=== PATIENT | male | born 1955 | race Caucasian/White ===

== ENCOUNTER 2016-11-12 10:53 | Inpatient (IN) | payer OTHER ==
[2016-11-12] VITALS (14 sets, daily range): BP systolic 108–166; BP diastolic 64–93; PULSE 74–89; RESP 16–24; TEMP 97.4–98.6; O2SAT 96–98
[~2016-11-12] VITALS: Ht 167.6 cm; Wt 71.1 kg
[~2016-11-12 10:53] MED LIST: ASPI81CH CHEW; BRIL90TA PO; CYCL1TAB29 PO; NEUR300C PO; NITR1SUB2 SL; PRAV40TA2 PO; PROT40TA PO; ROXI30TA14 PO; VENTAER INH
[2016-11-12] MEDS ORDERED: SODIUM CHLORIDE 0.9% FLUSH 5 ML FLUSH IVF PRN (11:15)
[2016-11-12] MEDS ORDERED: SODIUM CHLORID 0.9% 500 ML INJ 500 ML IV ONE (11:15)
[2016-11-12] MEDS ORDERED: NITROGLYCERIN 0.4 MG SL 25 TABS/BTL SL ONE (11:15)
[2016-11-12] MEDS: NITROGLYCERIN-DEXTROSE INJ 250 ML IV SCH ×2 (11:21→20:50)
[2016-11-12 11:23] LABS: AUTOMATED NEUTROPHIL # 5.8 TH/MM3 (1.8-7.7); BASOPHIL # 0.1 TH/MM3 (0-0.2); BASOPHIL % 0.7 % (0.0-2.0); EOSINOPHIL # 0.1 TH/MM3 (0-0.4); EOSINOPHIL % 1.1 % (0.0-4.0); HEMATOCRIT 43.4 % (39.0-51.0); HEMO FLAGS DIFF FINAL; LYMPH % 25.3 % (9.0-44.0); LYMPHOCYTE # 2.3 TH/MM3 (1.0-4.8); MEAN CELL VOLUME 83.2 FL (80.0-100.0); MEAN CORPUSCULAR HEMOGLOBIN 27.8 PG (27.0-34.0); MEAN CORPUSCULAR HGB CONC 33.4 % (32.0-36.0); MONO % 8.3 % (0.0-8.0); NEUT % 64.6 % (16.0-70.0); PLATELET COUNT 331 TH/MM3 (150-450); RED BLOOD COUNT 5.22 MIL/MM3 (4.50-5.90); RED CELL DISTRIBUTION WIDTH 15.8 % (11.6-17.2)
--- NOTE | 2016-11-12 11:24 | PD ---
HPI Chief Complaint: Chest Pain Time Seen by Provider: 10:59 Travel History International Travel<30 days: No Contact w/Intl Traveler<30days: No Traveled to known affect area: No History of Present Illness HPI Patient is a 61-year-old male who presents to emergency room with complaints of chest pain. Patient reports that 45 minutes prior to arrival to the emergency room, he began to feel pressure to his chest. Patient reports that he was on the bus when he began to have chest pain. Reports that chest pain is midsternal and nonradiating in nature, reports that chest pain feels like a crushing sensation to his chest. Patient reports that he feels diaphoretic with nausea and vomiting with symptoms. Reports that he has had chest pain in the past and has had heart attacks in the past, reports that today symptoms feel worse. Patient was given a full dose aspirin by EMS as well as 2SL nitroglycerin's, reports that the nitro did help with his symptoms but he still has chest pain. 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 Patient reports that he has had double bypass surgery in 2011, [address] Freitas Pt reports that he has 2 cardiac stents at [facility] around 8 months ago. Pt reports that he is on Brilinta Reports that he did have a stress test recently. PFSH Past Medical History Hx Anticoagulant Therapy: Yes (BRILINTA) Arthritis: Yes Autoimmune Disease: No Anxiety: Yes Heart Rhythm Problems: Yes Cancer: No Cardiac Catheterization: Yes (WITH 2 STENTS) Cardiovascular Problems: Yes High Cholesterol: Yes Congestive Heart Failure: Yes COPD: Yes Cerebrovascular Accident: No Diabetes: No Diminished Hearing: No Endocrine: No Gastrointestinal Disorders: Yes GERD: Yes Genitourinary: Yes Hiatal Hernia: Yes Heparin Induced Thrombocytopen: No Hypertension: No Immune Disorder: No Implanted Vascular Access Dvce: No Kidney Stones: Yes Reproductive: No Immunizations Current: Yes Migraines: Yes Myocardial Infarction: Yes Seizures: No Sickle Cell Disease: No Sleep Apnea: Yes Ulcer: No Past Surgical History Abdominal Surgery: No Cardiac Surgery: Yes ( double cabg 2012 for stents) Coronary Artery Bypass Graft: Yes (X 2) Ear Surgery: No Endocrine Surgery: No Eye Surgery: No Genitourinary Surgery: No Gynecologic Surgery: No Neurologic Surgery: No Oral Surgery: No Thoracic Surgery: Yes (HX of CABG x 2) Other Surgery: Yes Family History Family Myocardial Infarction: Yes Social History Alcohol Use: No (PT DENIES) Tobacco Use: Yes (11/12 PPD) Substance Use: Yes (MARIJUANA, OPIATES ) Allergies-Medications (Allergen,Severity, Reaction): Coded Allergies: Penicillin (Verified Allergy, Unknown, Hives, 11/12/16) Reported Meds & Prescriptions Reported Meds & Active Scripts Active Flexeril (Cyclobenzaprine HCl) 10 Mg Tab 10 Mg PO TID PRN 10 Days Ventolin Hfa 18 GM Inh (Albuterol Sulfate) 90 Mcg/Act Aer 2 Puff INH Q4-6H PRN Neurontin (Gabapentin) 300 Mg Cap 900 Mg PO TID Brilinta (Ticagrelor) 90 Mg Tab 90 Mg PO BID Pravastatin 40 Mg Tab 40 Mg PO DAILY Nitroglycerin SL (Nitroglycerin) 0.3 Mg Subl 0.3 Mg SL DIRECTED PRN ONE TABLET UNDER THE TONGUE NEEDED FOR CHEST PAIN, MAY REPEAT EVERY FIVE MINUTES FOR A TOTAL OF 3 DOSES OR CALL 911 IF NO RELIEF. Protonix (Pantoprazole Sodium) 40 Mg Tab 40 Mg PO DAILY Reported Aspirin 81 Mg Chew 81 Mg CHEW DAILY Roxicodone (Oxycodone HCl) 30 Mg Tab 30 Mg PO TID Review of Systems General / Constitutional: No: Fever Eyes: No: Visual changes HENT: No: Headaches Cardiovascular: Positive: Chest Pain or Discomfort, Palpitations, Diaphoresis Respiratory: Positive: Shortness of Breath Gastrointestinal: Positive: Nausea, Vomiting, No: Diarrhea, Abdominal Pain Genitourinary: No: Dysuria Musculoskeletal: No: Pain Skin: No Rash Neurologic: No: Weakness Psychiatric: No: Depression Endocrine: No: Polydipsia Hematologic/Lymphatic: No: Easy Bruising Physical Exam Narrative GENERAL: pt in mild distress SKIN: Warm and dry. HEAD: Atraumatic. Normocephalic. EYES: Pupils equal and round. No scleral icterus. No injection or drainage. ENT: No nasal bleeding or discharge. Mucous membranes pink and moist. NECK: Trachea midline. No JVD. CARDIOVASCULAR: Regular rate and rhythm. No murmur appreciated. RESPIRATORY: No accessory muscle use. Clear to auscultation. Breath sounds equal bilaterally. GASTROINTESTINAL: Abdomen soft, non-tender, nondistended. Hepatic and splenic margins not palpable. MUSCULOSKELETAL: No obvious deformities. No clubbing. No cyanosis. No edema. NEUROLOGICAL: Awake and alert. No obvious cranial nerve deficits. Motor grossly within normal limits. Normal speech. PSYCHIATRIC: Appropriate mood and affect; insight and judgment normal. Data Data Last Documented VS Vital Signs Date Time Temp Pulse Resp B/P Pulse Ox O2 Delivery O2 Flow Rate FiO2 11/12/16 12:39 85 18 166/91 97 Room Air 11/12/16 10:56 98.1 Orders Electrocardiogram (11/12/16 11:03) B-Type Natriuretic Peptide (11/12/16 11:03) Ckmb (Isoenzyme) Profile (11/12/16 11:03) Complete Blood Count With Diff (11/12/16 11:03) Comprehensive Metabolic Panel (11/12/16 11:03) Prothrombin Time / Inr (Pt) (11/12/16 11:03) Act Partial Throm Time (Ptt) (11/12/16 11:03) Troponin I (11/12/16 11:03) Chest, Single Ap (11/12/16 11:03) Ecg Monitoring (11/12/16 11:03) Iv Access Insert/Monitor (11/12/16 11:03) Oximetry (11/12/16 11:03) Oxygen Administration (11/12/16 11:03) Sodium Chloride 0.9% Flush (Ns Flush) (11/12/16 11:15) Nitroglycerin Sl (Nitrostat Sl) (11/12/16 11:15) Sodium Chlorid 0.9% 500 Ml Inj (Ns 500 M (11/12/16 11:15) Nitroglycerin-Dextrose Inj (Nitroglyceri (11/12/16 11:15) Drug Screen, Random Urine (11/12/16 11:11) Electrocardiogram (11/12/16 ) CKMB (11/12/16 11:00) CKMB% (11/12/16 11:00) Morphine Inj (Morphine Inj) (11/12/16 12:15) Heparin Infusion PONCE.Q1H (11/12/16 12:11) Heparin-D5w Inj (Heparin-D5w Inj) (11/12/16 12:15) Electrocardiogram (11/12/16 11:33) Admit Order (Ed Use Only) (11/12/16 12:50) Labs Laboratory Tests Test 11/12/16 11/12/16 11:00 12:17 White Blood Count 9.0 TH/MM3 Red Blood Count 5.22 MIL/MM3 Hemoglobin 14.5 GM/DL Hematocrit 43.4 % Mean Corpuscular Volume 83.2 FL Mean Corpuscular Hemoglobin 27.8 PG Mean Corpuscular Hemoglobin 33.4 % Concent Red Cell Distribution Width 15.8 % Platelet Count 331 TH/MM3 Mean Platelet Volume 8.8 FL Neutrophils (%) (Auto) 64.6 % Lymphocytes (%) (Auto) 25.3 % Monocytes (%) (Auto) 8.3 % Eosinophils (%) (Auto) 1.1 % Basophils (%) (Auto) 0.7 % Neutrophils # (Auto) 5.8 TH/MM3 Lymphocytes # (Auto) 2.3 TH/MM3 Monocytes # (Auto) 0.7 TH/MM3 Eosinophils # (Auto) 0.1 TH/MM3 Basophils # (Auto) 0.1 TH/MM3 CBC Comment DIFF FINAL Differential Comment Prothrombin Time 11.0 SEC Prothromb Time International 1.0 RATIO Ratio Activated Partial 32.5 SEC Thromboplast Time Sodium Level 139 MEQ/L Potassium Level 4.0 MEQ/L Chloride Level 104 MEQ/L Carbon Dioxide Level 23.3 MEQ/L Anion Gap 12 MEQ/L Blood Urea Nitrogen 13 MG/DL Creatinine 1.33 MG/DL Estimat Glomerular Filtration 55 ML/MIN Rate Random Glucose 122 MG/DL Calcium Level 9.6 MG/DL Total Bilirubin 0.7 MG/DL Aspartate Amino Transf 28 U/L (AST/SGOT) Alanine Aminotransferase 22 U/L (ALT/SGPT) Alkaline Phosphatase 68 U/L Total Creatine Kinase 286 U/L Creatine Kinase MB 2.2 NG/ML Troponin I 0.03 NG/ML B-Type Natriuretic Peptide 24 PG/ML Total Protein 8.3 GM/DL Albumin 4.5 GM/DL Urine Opiates Screen NEG Urine Barbiturates Screen NEG Urine Amphetamines Screen NEG Urine Benzodiazepines Screen NEG Urine Cocaine Screen NEG Urine Cannabinoids Screen POS MDM Medical Decision Making Medical Screen Exam Complete: Yes Emergency Medical Condition: Yes Interpretation(s) ekg at 1056: Normal sinus rhythm at 84 bpm, QT/QTC 365/107, pt with diffuse st seg depression, 0.5mm st elevation aVR ekg at 11:: nsr [id number]: st seg depression lateral leads, improved from initial ekg Vital Signs Date Time Temp Pulse Resp B/P Pulse Ox O2 Delivery O2 Flow Rate FiO2 11/12/16 10:56 98.1 89 18 141/93 96 Differential Diagnosis acs, electrolyte abnormalities, arrhythmia, muscle strain, pneumothorax, aortic dissection Narrative Course Patient is a 61-year-old male who presents to emergency room with complaints of chest pain. Patient reports that 45 minutes prior to arrival to the emergency room, he began to feel pressure to his chest. Patient reports that he was on the bus when he began to have chest pain. Reports that chest pain is midsternal and nonradiating in nature, reports that chest pain feels like a crushing sensation to his chest. Patient reports that he feels diaphoretic with nausea and vomiting with symptoms. Reports that he has had chest pain in the past and has had heart attacks in the past, reports that today symptoms feel worse. Patient was given a full dose aspirin by EMS as well as 2SL nitroglycerin's, reports that the nitro did help with his symptoms but he still has chest pain. 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 Patient reports that he has had double bypass surgery in 2011, [address] Freitas Pt reports that he has 2 cardiac stents at [facility] around 8 months ago. Pt reports that he is on Brilinta Patient with ischemic changes on his EKG, will start patient on nitro drip, will repeat EKG in 15 minutes Patient's treadmill test was reviewed, patient had a stress test on 09/18/[address] Perez, there were no electrocardiographic abnormalities seen to suggest ischemia Reports that he did have a stress test recently. Please note that Patient had cardiac catheter on 10/30/[address] Iza Perez which showed severe disease of the ostial LAD and mid RCA, it does not appear that any intervention was performed at that time, surgery was conflict for coronary artery bypass graft given large calcium burden at the ostial LAD positio Patient placed on nitro drip - reports minimal relief of symptoms with this, we' ll give a dose of morphine Patient will be admitted to the CICU for unstable angina Critical Care Narrative Aggregate critical care time was 30 minutes. Time to perform other separately billable procedures was not included in the critical care time. My time did not include minutes spent treating any other patients simultaneously or on activities that did not directly contribute to the patient's treatment. The services I provided to this patient were to treat and/or prevent clinically significant deterioration that could result in: , decompensation, deterioration I provided critical care services requiring my management, as noted below: Chart data review, documentation time, medication orders and management, vital sign assessments/reviewing monitor data, ordering and reviewing lab tests, ordering and interpreting/reviewing x-rays and diagnostic studies, care of the patient and discussion of the patient with the admitting physicians. Physician Communication Physician Communication case reviewed with fp residents, accepts pt to service Diagnosis Primary Impression: Unstable angina Admitting Information Admitting Physician Requests: Admit Naida Pritchett DO Nov 12, 2016 11:24
[2016-11-12 11:34] LABS: APTT (PATIENT) 32.5 SEC (24.3-30.1)
[2016-11-12 11:40] LABS: ALT (GPT) 22 U/L (12-78); ANION GAP 12 MEQ/L (5-15); AST (GOT) 28 U/L (15-37); BICARBONATE 23.3 MEQ/L (21.0-32.0); BLOOD UREA NITROGEN 13 MG/DL (7-18); CHLORIDE 104 MEQ/L (98-107); GLOMERULAR FILTRATION RATE 55 ML/MIN (>89); SODIUM (NA) 139 MEQ/L (136-145)
--- NOTE | 2016-11-12 11:41 | RADRPT ---
EXAM DATE/TIME: 11/12/2016 11:20 [facility] COMPARISON: CHEST SINGLE AP, November 04, 2016, 11:15. INDICATIONS : Chest pain. MEDICAL HISTORY : Congestive heart failure. SURGICAL HISTORY : CABG. ENCOUNTER: Initial ACUITY: 1 day PAIN SCORE: 10/10 LOCATION: chest midline. FINDINGS: A single view of the chest demonstrates the lungs to be symmetrically aerated without evidence of mas s, infiltrate or effusion. The cardiomediastinal contours are unremarkable. Osseous structures are intact. Median sternotomy wires are present. CONCLUSION: No acute disease. Hari Pak MD on November 12, 2016 at 11:40 Board Certified Radiologist. This report was verified electronically.
[2016-11-12 11:49] LABS: ALKALINE PHOSPHATASE 68 U/L (45-117); CREATINE KINASE 286 U/L (39-308); TOTAL BILIRUBIN ADULT 0.7 MG/DL (0.2-1.0)
[2016-11-12 12:01] LABS: CKMB 2.2 NG/ML (0.5-3.6)
[2016-11-12] MEDS ORDERED: HEPARIN-D5W INJ 250 ML IV SCH (12:15)
[2016-11-12] MEDS ORDERED: MORPHINE SULFATE 4 MG/ML INJ IV PUSH ONE (12:15)
[2016-11-12 12:33] LABS: AMPHETAMINE, URINE NEG (NEG); BARBITURATES, URINE NEG (NEG); COCAINE, URINE NEG (NEG)
--- NOTE | 2016-11-12 14:58 | HHI.HP ---
HPI Service Family Medicine Primary Care Physician Non-Staff Admission Diagnosis Unstable angina Diagnoses: International Travel<30 Days: No Contact w/Intl Traveler<30days: No Known Affected Area: No History of Present Illness This is a 61 year old male with a past history of CAD requiring double bypass surgery and 2 stents placed this year who follows with Dr. Alejandro. He reports that while sitting at the bus stop today, 45 minutes prior to ED arrival , he experienced 10/10 crushing, tightening, chest pain. The pain is in the middle of his chest. No radiation. He was given 325 mg aspirin by the EMS, and was placed on a nitro drip in the ER. His pain improved a little with the nitro , but upon our evaluation, he still complains of 10/10 pain. He's having SOB, diaphoresis, and feels like "its the big one." He recently had a stress test on 09/18/[address] De Leon, and there was no abnormalities at that time. He has been to [place] on 10/31, 11/04, and now today, for chest pain. (Richmond Whalen MD R2) Review of Systems Constitutional: COMPLAINS OF: Fever, DENIES: Chills Eyes: DENIES: Blurred vision, Diplopia Respiratory: COMPLAINS OF: Shortness of breath, DENIES: Cough Cardiovascular: COMPLAINS OF: Chest pain, DENIES: Palpitations Gastrointestinal: COMPLAINS OF: Nausea, Vomiting, DENIES: Diarrhea Neurologic: DENIES: Abnormal gait, Headache Psychiatric: COMPLAINS OF: Anxiety, DENIES: Confusion (Richmond Whalen MD R2) Past Family Social History Past Medical History Chronic pain from multiple disc injuries in his neck and back Hyperlipidemia COPD CHF Neuropathy CAD Past Surgical History CABG 2 in 2011 Stent placement 2 - 6 months ago Reported Medications Reported Meds & Active Scripts Active Flexeril (Cyclobenzaprine HCl) 10 Mg Tab 10 Mg PO TID PRN 10 Days Ventolin Hfa 18 GM Inh (Albuterol Sulfate) 90 Mcg/Act Aer 2 Puff INH Q4-6H PRN Neurontin (Gabapentin) 300 Mg Cap 900 Mg PO TID Brilinta (Ticagrelor) 90 Mg Tab 90 Mg PO BID Pravastatin 40 Mg Tab 40 Mg PO DAILY Nitroglycerin SL (Nitroglycerin) 0.3 Mg Subl 0.3 Mg SL DIRECTED PRN ONE TABLET UNDER THE TONGUE NEEDED FOR CHEST PAIN, MAY REPEAT EVERY FIVE MINUTES FOR A TOTAL OF 3 DOSES OR CALL 911 IF NO RELIEF. Protonix (Pantoprazole Sodium) 40 Mg Tab 40 Mg PO DAILY Reported Aspirin 81 Mg Chew 81 Mg CHEW DAILY Roxicodone (Oxycodone HCl) 30 Mg Tab 30 Mg PO TID (Richmond Whalen MD R2) Allergies: Coded Allergies: Penicillin (Verified Allergy, Unknown, Hives, 11/12/16) Active Ordered Medications Active Medications Heparin Sodium/ Dextrose (Heparin-D5W Inj) 250 ml @ 0 mls/hr TITRATE IV Last administered on 11/12/16 12:33; Admin Dose 0 MLS/HR; Start 11/12/16 at 12:15 IV Flush (NS Flush) 2 ml UNSCH PRN IVF; Start 11/12/16 at 11:15 Morphine Sulfate 2 mg 2 mg ONCE ONCE IV PUSH Last administered on 11/12/16 12: 31; Admin Dose 2 MG; Start 11/12/16 at 12:15; Stop 11/12/16 at 12:16; Status DC Nitroglycerin 0.4 mg 0.4 mg ONCE ONCE SL Last administered on 11/12/16 11:21; Admin Dose 0.4 MG; Start 11/12/16 at 11:15; Stop 11/12/16 at 11:16; Status DC Nitroglycerin/ Dextrose (Nitroglycerin-Dextrose Inj) 250 ml @ 0 mls/hr TITRATE IV Last administered on 11/12/16 11:21; Admin Dose 0 MLS/HR; Start 11/12/16 at 11 :15 Sodium Chloride 500 ml @ 500 mls/hr ONCE ONCE IV Last administered on 11:21; Admin Dose 500 MLS/HR; Start 11/12/16 at 11:15; Stop 11/12/16 at 12:14 ; Status DC Family History Father of an CT at age 42, mother of an CT at age 92. 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 Currently smokes 5 cigarettes a day however has been smoking since the age of 13. Denies alcohol. He endorses marijuana. Denies all other illicit drugs. (Richmond Whalen MD R2) Physical Exam Vital Signs Vital Signs Date Time Temp Pulse Resp B/P Pulse Ox O2 Delivery O2 Flow Rate FiO2 11/12/16 14:36 87 18 132/67 97 Nasal Cannula 2 11/12/16 12:39 85 18 166/91 97 Room Air 11/12/16 11:50 87 24 123/87 98 Room Air 11/12/16 11:15 18 98 Room Air 11/12/16 10:56 98.1 89 18 141/93 96 Physical Exam GENERAL: This is a well-nourished, well-developed patient, who appears to have chest pain SKIN: No rashes, ecchymoses or lesions. Cool and dry. HEAD: Atraumatic. Normocephalic. No temporal or scalp tenderness. EYES: Pupils equal round and reactive. Extraocular motions intact. No scleral icterus. No injection or drainage. ENT: Nose without bleeding, purulent drainage or septal hematoma. Throat without erythema, tonsillar hypertrophy or exudate. Uvula midline. Airway patent. NECK: Trachea midline. No JVD or lymphadenopathy. Supple, nontender, no meningeal signs. CARDIOVASCULAR: Regular rate and rhythm without murmurs, gallops, or rubs. RESPIRATORY: Clear to auscultation. Breath sounds equal bilaterally. No wheezes , rales, or rhonchi. GASTROINTESTINAL: Abdomen soft, non-tender, nondistended. No hepato-splenomegaly , or palpable masses. No guarding. MUSCULOSKELETAL: Extremities without clubbing, cyanosis, or edema. No joint tenderness, effusion, or edema noted. No calf tenderness. Negative Homans sign bilaterally. NEUROLOGICAL: Awake and alert. Cranial nerves II through XII intact. Motor and sensory grossly within normal limits. Five out of 5 muscle strength in all muscle groups. Normal speech. Laboratory Laboratory Tests Test 11/12/16 11/12/16 11:00 12:17 White Blood Count 9.0 Red Blood Count 5.22 Hemoglobin 14.5 Hematocrit 43.4 Mean Corpuscular Volume 83.2 Mean Corpuscular Hemoglobin 27.8 Mean Corpuscular Hemoglobin 33.4 Concent Red Cell Distribution Width 15.8 Platelet Count 331 Mean Platelet Volume 8.8 Neutrophils (%) (Auto) 64.6 Lymphocytes (%) (Auto) 25.3 Monocytes (%) (Auto) 8.3 Eosinophils (%) (Auto) 1.1 Basophils (%) (Auto) 0.7 Neutrophils # (Auto) 5.8 Lymphocytes # (Auto) 2.3 Monocytes # (Auto) 0.7 Eosinophils # (Auto) 0.1 Basophils # (Auto) 0.1 CBC Comment DIFF FINAL Differential Comment Prothrombin Time 11.0 Prothromb Time International 1.0 Ratio Activated Partial 32.5 Thromboplast Time Sodium Level 139 Potassium Level 4.0 Chloride Level 104 Carbon Dioxide Level 23.3 Anion Gap 12 Blood Urea Nitrogen 13 Creatinine 1.33 Estimat Glomerular Filtration 55 Rate Random Glucose 122 Calcium Level 9.6 Total Bilirubin 0.7 Aspartate Amino Transf 28 (AST/SGOT) Alanine Aminotransferase 22 (ALT/SGPT) Alkaline Phosphatase 68 Total Creatine Kinase 286 Creatine Kinase MB 2.2 Troponin I 0.03 B-Type Natriuretic Peptide 24 Total Protein 8.3 Albumin 4.5 Urine Opiates Screen NEG Urine Barbiturates Screen NEG Urine Amphetamines Screen NEG Urine Benzodiazepines Screen NEG Urine Cocaine Screen NEG Urine Cannabinoids Screen POS (Richmond Whalen MD R2) Result Diagram: 11/12/16 1100 11/12/16 1100 Imaging chest xray- no acute disease (Richmond Whalen MD R2) Assessment and Plan Assessment and Plan 61-year-old male with previous cardiac history including CABG and stents who follows with Dr. Perez presents with chest pain. EKG shows moderate ST depressions. Initial troponin 0.03 Patient will be admitted for ACS rule out, cardiology consultation Code Status Full Discussed Condition With Dr. Koby Allen (Richmond Whalen MD R2) Attending Attestation Patient seen and examined. Case reviewed and discussed with the resident team. Agree with plan of care as discussed with me and documented in the resident note. (Shikha Whalen MD) Problem List: (1) Unstable angina Status: Acute Plan: Patient has a significant cardiac history. However, he has had a normal stress test as recently as 09/2016; he follows with Dr. Perez. EKG shows ST depressions. -ACS rule out with serial troponins and EKGs -Consult cardiology (Dr. Perez) -Continue heparin drip as started in the emergency room. -Morphine 2 mg when necessary chest pain -Aspirin 325 mg by mouth daily -Nitroglycerin when necessary chest pain (2) VESNA (acute kidney injury) Status: Acute Plan: Patient has mild renal injury with a creatinine of 1.33 His baseline is less than 1 We'll provide fluids as below. (3) FEN/PPX Status: Acute Plan: Fluids: Normal saline at 110 ml/hr Electrolytes: Monitor and replace when necessary Nutrition: Heart healthy diet Prophylaxis: Continue heparin drip started in the emergency room. Chronic medical problems: Hyperlipidemia- continue current statin Neuropathy-continue gabapentin Chronic back pain-continue home oxycodone Tobacco abuse-counseled cessation (Richmond Whalen MD R2) Richmond Whalen MD R2 Nov 12, 2016 14:58 Shikha Whalen MD Nov 13, 2016 10:13
--- NOTE | 2016-11-12 15:26 | HHI.FPPN ---
Subjective Remarks Pt. seen and examined and discussed with Drs. Allen and Koby. This is a 61 yo male with hx of CABG and stents on Brilinta who was waiting for the bus today and had sudden onset of chest pain that "knocked the breath out of him". It was centrally located, substernal, with radiation to the back, associated with nausea and sweats. 10:10. Hx ofmultiple previous ED visits, admissions to chest pain center (most recently 10-31-16 and 11-04-16). 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 See H&P from this admission for additional past, family and social history. Complete review of systems was only positive for the 10:10 chest pain radiating to the back, nausea, sweats; all other systems reviewed and were negative. Objective Vitals Vital Signs Date Time Temp Pulse Resp B/P Pulse Ox O2 Delivery O2 Flow Rate FiO2 11/12/16 14:36 87 18 132/67 97 Nasal Cannula 2 11/12/16 12:39 85 18 166/91 97 Room Air 11/12/16 11:50 87 24 123/87 98 Room Air 11/12/16 11:15 18 98 Room Air 11/12/16 10:56 98.1 89 18 141/93 96 Result Diagram: 11/12/16 1100 11/12/16 [address] depression in three serial EKGs Imaging CXR negative A/P Assessment and Plan Unstable angina History of CAD HLD Neuropathy COPD Chronic Back pain Tobacco abuse Attending Attestation Patient seen and examined. Case reviewed and discussed with the resident team. Agree with plan of care as discussed with me and documented in the resident note. Shikha Whalen MD Nov 12, 2016 15:26
[2016-11-12] MEDS ORDERED: hydrALAZINE HCL 10 MG TAB PO PRN (15:30)
[2016-11-12] MEDS ORDERED: DOCUSATE SODIUM 50 MG/SENNA 8.6 MG TAB PO PRN (15:30)
[2016-11-12] MEDS ORDERED: CYCLOBENZAPRINE HCL 10 MG TAB PO PRN (15:45)
[2016-11-12] MEDS: MORPHINE SULFATE 4 MG/ML INJ IV PUSH PRN ×3 (15:51→22:06)
[2016-11-12] MEDS: SODIUM CHLOR 0.9% 1000 ML INJ 1,000 ML IV SCH (15:51)
[2016-11-12] MEDS: ONDANSETRON HCL 4 MG/2 ML VIAL IV PRN (15:51)
--- NOTE | 2016-11-12 17:58 | EKG ---
Date Performed: 11/12/2016 Time Performed: 10:56:56 PTAGE: 61 years EKG: Sinus rhythm MODERATE ST DEPRESSION Since previous tracing, no significant change noted ABNORMAL ECG PREVIOUS TRACING : 11/04/2016 17.41 DOCTOR: Iza Perez Interpretating Date/Time 11/12/2016 17:56:32
--- NOTE | 2016-11-12 17:58 | EKG ---
Date Performed: 11/12/2016 Time Performed: 11:07:05 PTAGE: 61 years EKG: Sinus rhythm POSSIBLE LEFT ATRIAL ENLARGEMENT MODERATE ST DEPRESSION Since previous tracing, no significant arnold e noted ABNORMAL ECG NO PREVIOUS TRACING DOCTOR: Iza Perez Interpretating Date/Time 11/12/2016 17:56:46
--- NOTE | 2016-11-12 17:58 | EKG ---
Date Performed: 11/12/2016 Time Performed: 11:33:37 PTAGE: 61 years EKG: Sinus rhythm MODERATE ST DEPRESSION Since PREVIOUS TRACING , no significant change noted ABNORMAL ECG INTERPRETATION BASED ON A DEF DAMARIS AGE OF 40 YEARS PREVIOUS TRACIN11/12/2016 10.56 DOCTOR: Iza Perez Interpretating Date/Time 11/12/2016 17:57:01
[2016-11-12 19:22] LABS: APTT (PATIENT) 31.7 SEC (24.3-30.1)
[2016-11-12] MEDS ORDERED: NITROGLYCERIN-DEXTROSE INJ 250 ML IV SCH (20:30)
[2016-11-12] MEDS: GABAPENTIN 300 MG CAP PO SCH (20:36)
[2016-11-12] MEDS ORDERED: TICAGRELOR 90 MG TAB PO SCH (21:00)
--- NOTE | 2016-11-12 21:03 | HHI.PR ---
Addendum to Inpatient Note Addendum Reason: Additional Documentation Additional Information Patient's troponin increased from 0.03 to >40 at 1840 Patient was evaluated at the bedside. He reports continued chest pain. 8 out of 10 in severity in the middle of his chest nonradiating. He is reluctant to accept the nitro drip because it causes him to have headaches. However after further discussion, he agrees to have the nitro drip. He states the morphine is not helping his chest pain. He is not asking for morphine for his 8 out of 10 chest pain. No nausea, vomiting, diarrhea. Objective: Vitals 98.0, heart rate 86, respirations 16, 137/93, 97% on room air. Gen.: Appears uncomfortable secondary to chest pain. Cardiac: Regular rate and rhythm Lungs: Clear to auscultation bilaterally Assessment/plan: 61-year-old male with past history of coronary artery disease with stents and CABG with NSTEMI. Troponins increased from 0.03 to > 40.0; repeat EKG shows normal sinus rhythm without depressions or elevations. Case discussed with Dr. Ivey of cardiology who recommends nitro drip and making the patient nothing by mouth for catheterization procedure tomorrow morning. Richmond Whalen MD R2 Nov 12, 2016 21:03
[2016-11-12] MEDS ORDERED: ACETAMINOPHEN 500 MG CPLT PO PRN (21:15)
[2016-11-12] MEDS: TEMAZEPAM 15 MG CAP PO PRN (23:33)
[2016-11-13] VITALS (25 sets, daily range): BP systolic 92–126; BP diastolic 53–77; PULSE 70–91; RESP 16–20; TEMP 97.2–98.4; O2SAT 93–100
[2016-11-13 00:55] LABS: APTT (PATIENT) 35.5 SEC (24.3-30.1)
[2016-11-13] MEDS ORDERED: diphenhydrAMINE HCL 50 MG/ML VIAL IV PUSH ONE (01:15)
[2016-11-13 01:25] LABS: ANION GAP 9 MEQ/L (5-15); BICARBONATE 21.3 MEQ/L (21.0-32.0); BLOOD UREA NITROGEN 14 MG/DL (7-18); CHLORIDE 108 MEQ/L (98-107); GLOMERULAR FILTRATION RATE 73 ML/MIN (>89); SODIUM (NA) 138 MEQ/L (136-145)
[2016-11-13] MEDS ORDERED: diphenhydrAMINE HCL 25 MG CAP PO PRN (01:30)
[2016-11-13] MEDS: SODIUM CHLOR 0.9% 1000 ML INJ 1,000 ML IV SCH ×3 (01:32→21:11)
[2016-11-13] MEDS: MORPHINE SULFATE 4 MG/ML INJ IV PUSH PRN (03:20)
[2016-11-13 06:56] LABS: AUTOMATED NEUTROPHIL # 5.8 TH/MM3 (1.8-7.7); BASOPHIL % 0.5 % (0.0-2.0); EOSINOPHIL # 0.2 TH/MM3 (0-0.4); EOSINOPHIL % 2.3 % (0.0-4.0); HEMATOCRIT 36.4 % (39.0-51.0); HEMO FLAGS DIFF FINAL; LYMPH % 25.6 % (9.0-44.0); LYMPHOCYTE # 2.3 TH/MM3 (1.0-4.8); MEAN CELL VOLUME 83.9 FL (80.0-100.0); MEAN CORPUSCULAR HEMOGLOBIN 28.1 PG (27.0-34.0); MEAN CORPUSCULAR HGB CONC 33.5 % (32.0-36.0); MONO % 8.3 % (0.0-8.0); NEUT % 63.3 % (16.0-70.0); PLATELET COUNT 213 TH/MM3 (150-450); RED BLOOD COUNT 4.34 MIL/MM3 (4.50-5.90); RED CELL DISTRIBUTION WIDTH 15.4 % (11.6-17.2); WHITE BLOOD COUNT 9.1 TH/MM3 (4.0-11.0)
[2016-11-13] MEDS ORDERED: PILL SPLITTER OTHER PRN (08:15)
[2016-11-13] MEDS ORDERED: HEPARIN-NS/PF INJ 500 ML ONE ×2 (08:21→08:44)
[2016-11-13] MEDS ORDERED: MIDAZOLAM HCL 2 MG/2 ML VIAL ONE ×5 (08:22→10:58)
[2016-11-13] MEDS ORDERED: ASPIRIN 325 MG TAB PO SCH (09:00)
[2016-11-13] MEDS ORDERED: ASPIRIN 81 MG CHEW TAB PO SCH (09:00)
[2016-11-13] MEDS ORDERED: HEPARIN SODIUM - IV 10,000 UNITS/10 ML VIAL ONE (09:10)
[2016-11-13] MEDS ORDERED: CANGRELOR TETRASODIUM 50,000 MCG VIAL IV ONE (09:10)
[2016-11-13] MEDS ORDERED: STERILE WATER FOR INJECTION 10 ML VIAL ONE (09:11)
[2016-11-13] MEDS ORDERED: ATROPINE SULFATE 1 MG/10 ML SYRINGE ONE (09:29)
--- NOTE | 2016-11-13 09:54 | MB ---
cc: LEONID LUNA DATE OF CONSULTATION 11/13/2016 REASON FOR CONSULTATION Non-ST elevation myocardial infarction. HISTORY OF PRESENT ILLNESS This is a 61 year-old gentleman who has a history of known coronary disease who had bypass surgery times two back in 2011. He has [facility], but does not follow on an outpatient basis as he has Medicaid. Back in his heart catheterization in 2010, he had an LAD and RCA disease. He presents to the emergency department now with recurrent substernal chest pain, tightening, radiating towards the jaw. He has multiple frequent hospitalizations both on September 18 in which he had a normal stress test, followed by October 31 and November 04. He has been seen by psychiatry I think for these types of symptoms. His initial troponin was negative. He was admitted to the floor, but his second troponin rolled in at greater than 40 and we were consulted for further recommendations. His EKG does show some [address] depression inferiorly which has normalized. He is now symptom free from a chest-pain standpoint still describing back pain. PAST MEDICAL HISTORY 1. Chronic back pain 2. Hyperlipidemia 3. COPD 4. CHF 5. Neuropathy 6. Coronary disease 7. Bypass 8. PCI times two about six months ago REPORTED medications 1. Aspirin 2. Oxycodone ALLERGIES PENICILLIN REVIEW OF SYSTEMS A 12-point review of systems was performed, negative unless otherwise as noted in the history of present illness. FAMILY HISTORY His father does have a history of early coronary disease at age 42 with a myocardial infarction. 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 Denies any alcohol. Does report occasional marijuana use. PHYSICAL EXAM VITAL SIGNS: Temperature 97, pulse 79, blood pressure 104/62 mmHg. GENERAL: Alert and oriented times three is no acute distress. HEAD, EYES, EARS, NOSE, AND THROAT: Exam shows pupil are reactive to light and accommodation. Extraocular movements are intact. NECK: No jugular venous distention. LUNGS: Clear to auscultation bilaterally. CARDIOVASCULAR: Regular rate and rhythm with distant heart sounds. No murmurs, rubs, or gallops. ABDOMEN: Nontender, nondistended. Good bowel sounds. No hepatosplenomegaly. EXTREMITIES: No clubbing, cyanosis, or edema. Good peripheral pulses. NEUROLOGIC: Cranial nerves intact. Motor strength appears grossly intact. LABS WBC 9.1, hemoglobin 12.2, platelet count 213, INR is 1. Sodium 138, potassium 4.0, BUN 14, creatinine 1.04. Troponin is greater than 40. BNP is 24. Electrocardiogram is sinus rhythm, ST depression 1 mm inferiorly. Some nonspecific anterior precordial lead changes with poor R-wave progression. ASSESSMENT 1. Non-ST elevation myocardial infarction 2. History of coronary disease, prior bypass surgery and percutaneous intervention. 3. Hypertension PLAN The patient had somewhat suggestive symptoms, but multiple recent hospitalizations, negative stress test back in September. Despite all this, he has had a significant elevation in troponin with some subtle inferior ST segment deviation suspicious for right coronary distribution ischemic/infarct pattern. The risks, benefits and alternatives were discussed with the patient who is agreeable to cardiac catheterization. Currently on heparin and nitroglycerin which will stop now in anticipation of going to the cardiac catheterization lab. We will get a 2-D echocardiogram to look for any regional wall motion abnormalities and ejection fraction. He is already on aspirin, statin, beta misty and will likely resume Brilinta after the procedure. MD EUGENE Umana/ISMA /8:14 AM /9:51 AM
[2016-11-13] MEDS ORDERED: IOHEXOL 350 MG/ML 100 ML BTL (for Cath Lab) OTHER ONE (11:00)
[2016-11-13] MEDS ORDERED: PRASUGREL 10 MG TAB ONE (11:05)
[2016-11-13] MEDS ORDERED: ATROPINE SULFATE 1 MG/ML VIAL IV PRN (11:15)
[2016-11-13] MEDS ORDERED: BACITRACIN OINT 0.9 GM PKT TOP ONE (11:15)
[2016-11-13] MEDS ORDERED: SODIUM CHLOR 0.9% 250 ML INJ 250 ML IV PRN (11:15)
[2016-11-13] MEDS ORDERED: LIDOCAINE HCL 1% 50 ML VIAL INFIL PRN (11:15)
[2016-11-13] MEDS ORDERED: CANGRELOR INJ 50,000 MCG in SODIUM CHLOR 0.9% 250 ML INJ 250 ML IV ONE (11:15)
[2016-11-13] MEDS ORDERED: LIDOCAINE 2% JELLY 30 ML TUBE TOP PRN (11:15)
[2016-11-13] MEDS ORDERED: PRASUGREL 10 MG TAB PO ONE (11:15)
--- NOTE | 2016-11-13 11:54 | MA ---
cc: CALVIN LUNA DATE 11/13/2016 INDICATION [id number] myocardial infarction PRIMARY CARE PHYSICIAN Calvin Luna MD/[facility] PROCEDURE PERFORMED 1. Fluoroscopy interpretation 2. Coronary angiography 3. Coronary bypass graft angiography 4. Percutaneous intervention with bare metal stent to the ramus intermedius branch. 5. Percutaneous coronary intervention with bare metal stent to the distal left main coronary artery. 6. Percutaneous transluminal angioplasty of a thrombosed proximal left anterior descending coronary stent. 7. Related thrombectomy of the left main coronary artery 8. Intravascular ultrasound of the left main and left anterior descending coronary arteries. METHOD The risks, benefits and alternatives discussed with the patient. The patient understood and consented to the procedure. The patient brought into the catheterization lab, placed on the catheterization table. The right groin was prepped and draped in the usual sterile fashion. The right groin was anesthetized with 2% lidocaine. The right common femoral was cannulated. A 5-Azerbaijani 11 center sheath was placed without difficulty. CORONARY ANGIOGRAPHY 1. Left main coronary has a severe 75% distal stenosis. There is a stent that is under-deployed extending from the left anterior descending into the left main coronary covering the origin of the circumflex and ramus intermedius branches. There is heavy thrombotic burden extending into the branch of the circumflex and left anterior descending coronary artery. 2. Left anterior descending coronary has a thrombosed stent proximally which leads to a diagonal branch, moderate to proximal disease. 3. The mid left anterior descending coronary is occluded. 4. Right coronary artery. The right coronary artery is diffusely diseased with 80% stenosis in the distal segment. The acute marginal branch is patent. 5. Left circumflex proper is a smaller caliber size, has a 70% ostial stenosis. Obtuse marginal branch smaller caliber size. The ramus intermedius branch is moderate caliber size and also has moderate diffuse disease 75% proximally. PERCUTANEOUS INTERVENTION Heparin and Cangrelor were initiated. A 5-Azerbaijani sheath was upsized to a 6-Azerbaijani sheath in the right common femoral artery. A 6-Azerbaijani XB LAD 3.5 guide catheter was advanced into the left main. A 0.014 inch 180 cm CompufirstumCumuLogic run-through wire was navigated down into the ramus intermedius branch. It was difficult to pass through the distal left main since the stent was covering the origin of the ramus I suspect through a side strut. Rheolytic thrombectomy with a 4-Azerbaijani AngioJet spiral flex catheter was then performed in the distal left main. Reportedly, we were unable to advance any further due to the stent. Repeat angiography still shows severe residual stenosis. A second wire was then advanced into the left anterior descending coronary artery, a 0.014 inch 180 cm Compufirstumo run-through wire was navigated down into the diagonal branch. Careful attention was paid to try to get into the true lumen of the stent itself. At this point, we passed an intravascular ultrasound probe over the diagonal branch wire into the left main and left anterior descending coronary arteries. This showed that the stent was under deployed, thrombosed and that the stent extending into the left main was very much under deployed and there was actually lumen adjacent to the stent leaning towards the circumflex territory. A 2.5 x 10 mm RX Euphora balloon was advanced into the proximal diagonal branch and deployed all the way through into the distal left main. A 2.0 x 20 mm Euphora balloon was then advanced through the side strut on the ramus intermedius branch and deployed extending back to open up the side strut itself. Repeat angiography showed still residual stenosis within the ramus branch, suboptimal deployment into the LAD had some residual moderate disease secondary to suboptimal deployment in the LAD and distal left main. A 3.0 x 12-mm Euphora balloon was then advanced into the proximal LAD and deployed to 14 atmospheres and the left main 14 atmospheres. A 2.5 x 18 mm RX bare metal Integrity stent was advanced into the ramus intermedius branch and deployed. Bare metal was chosen given his questionable compliance history and recent thrombosis of the drug-eluting stent which I suspect is due to medication noncompliance with Brilinta. The stent was brought back to the origin in the ramus, but not extending into the left main. At this point, repeat angiography did reveal BIN-III flow down the diagonal and ramus. There was still an edge and suboptimal deployment in the mid left main. At this point, we elected to precede with stent placement with it extending into the proximal mid left main to taper the transition. A 3.0 x 9 mm bare metal integrity stent was then deployed in the mid left main with minimal stent overlap 16 atmospheres. Repeat angiography showed no residual stenosis, BIN-III flow. Wires were then removed. CONCLUSION 1. Successful percutaneous intervention with bare metal stents to the left main and ramus intermedius branch. 2. Percutaneous transluminal angioplasty of a subacute thrombosis of the proximal left anterior descending coronary stent. 3. Successful Rheolytic thrombectomy and intravascular ultrasound of the left main and left anterior descending coronary arteries. CORONARY BYPASS GRAFT ANGIOGRAPHY 1. Left internal mammary to left anterior descending coronary is widely patent. 2. Saphenous vein graft to the right coronary artery is patent. There is some diffuse to moderate disease in the posterior descending and posterolateral branches. PLAN We will switch the patient over to Effient which is once a day dosing. We will give him a 30-day free card, encouraged compliance. He will be continued on aspirin, statin, and a beta misty. We will get a 2-D echocardiogram.. MD EUGENE Umana/ISMA /11:17 AM /11:34 AM
[2016-11-13] MEDS ORDERED: MORPHINE SULFATE 4 MG/ML INJ IV PUSH PRN (12:00)
[2016-11-13] MEDS: PANTOPRAZOLE SOD 40 MG DELAYED RELEASE TAB PO SCH (12:22)
[2016-11-13] MEDS: GABAPENTIN 300 MG CAP PO SCH ×3 (12:22→20:29)
[2016-11-13] MEDS: PRAVASTATIN SOD 40 MG TAB PO SCH (12:23)
[2016-11-13] MEDS: METOPROLOL TARTRATE 25 MG TAB PO SCH ×2 (12:23→20:32)
--- NOTE | 2016-11-13 12:45 | HHI.FPPN ---
Subjective Remarks Patient has a heparin drip started in the emergency department. Overnight, patient continued to complain of 10 out of 10 chest pain and was found to have elevated troponin >402 last night without significant EKG changes. Cardiology notified. Discussed the case with movie actor Dr. Ivey at that time who recommended a nitroglycerin drip and scheduled patient for cardiac catheterization at 8:30 AM today. Discussed the patient and the procedure with Dr. Ivey after the cardiac catheterization today. Saw the patient after his cardiac catheterization. He complained of 4 out of 10 chest pain, which came down from a 10 out of 10 chest pain when I saw him last night. Patient complained of itchiness with morphine. Re-stressed the need for medication compliance after discharge. Will discuss how to get him his medications with case management. (Billy Allen MD R1) Objective Vitals Vital Signs Date Time Temp Pulse Resp B/P Pulse Ox O2 Delivery O2 Flow Rate FiO2 11/13/16 08:00 85 11/13/16 07:30 97.4 88 18 115/76 98 11/13/16 07:00 80 11/13/16 06:00 79 11/13/16 05:00 85 11/13/16 04:00 78 11/13/16 04:00 104/62 11/13/16 03:00 84 11/13/16 03:00 97.8 81 18 113/76 95 11/13/16 02:00 104/63 11/13/16 02:00 88 11/13/16 01:00 91 11/13/16 00:00 113/68 11/13/16 00:00 79 11/12/16 23:00 85 11/12/16 23:00 98.6 79 18 122/68 96 11/12/16 22:00 81 11/12/16 22:00 115/75 11/12/16 21:00 130/76 11/12/16 21:00 82 11/12/16 20:00 97.4 87 20 108/64 97 11/12/16 20:00 76 11/12/16 19:00 76 11/12/16 18:00 82 11/12/16 17:38 80 11/12/16 17:13 98.0 86 16 137/93 97 11/12/16 16:56 74 18 126/79 98 Nasal Cannula 2 11/12/16 14:36 87 18 132/67 97 Nasal Cannula 2 I/O 11/12/16 11/12/16 11/12/16 11/13/16 11/13/16 11/13/16 06:59 14:59 22:59 06:59 14:59 22:59 Intake Total 1952 ml Output Total 750 ml Balance 1202 ml Intake Oral 240 ml IV Total 1712 ml Output Urine Total 750 ml # Bowel Movements 0 (Billy Allen MD R1) Result Diagram: 11/13/16 0630 11/13/16 0040 Imaging Last Impressions Chest X-Ray 11/12/16 1103 Signed Impressions: Service Date/Time: Saturday, November 12, 2016 11:20 - CONCLUSION: No acute disease. Hari Pak MD Objective Remarks GENERAL: Well-nourished, well-developed patient. No acute distress. SKIN: Warm and dry. No rash. EYES: No scleral icterus. No injection or drainage. PERRLA. EOMI. HENT: Normocephalic. Atraumatic. MMM. NECK: Supple, trachea midline. No JVD or lymphadenopathy. CARDIOVASCULAR: Regular rate and rhythm without obvious murmurs, gallops, or rubs. RESPIRATORY: Breath sounds equal bilaterally. No accessory muscle use. CTAB. GASTROINTESTINAL: Abdomen soft, non-tender, nondistended. BS WNL. MUSCULOSKELETAL: No cyanosis or edema. Strength grossly WNL. No calf tenderness. BACK: Nontender without obvious deformity. NEURO/PSYCH: Afocal. Awake, alert, and oriented x3. (Billy Allen MD R1) A/P Assessment and Plan 61-year-old male with previous cardiac history including CABG and stents with poor follow-up who presents with chest pain. Initial EKG showed [address] depressions in leads 2, V2 through V5. Troponin trended 0.03, >40, >40. Cardiology notified with elevated troponin. Patient taken to the catheter lab this morning of 11/13/16. Patient had clot removal and ballooning, placement of 2 bare-metal stents along with the existing drug-eluting stent. Discharge Planning Discharge after echocardiogram per cardiology recommendations and assuming patient remains clinically stable. (Billy Allen MD R1) Attending Attestation Patient seen and examined. Case reviewed and discussed with the resident team. Agree with plan of care as discussed with me and documented in the resident note. (Shikha Whalen MD) Problem List: (1) Unstable angina Status: Acute Plan: Patient has a significant cardiac history s/p CABG and stents. However, he has had a normal stress test as recently as 09/2016; he does not have a movie actor; will need to follow-up with one. Taken to the cardiac catheter lab this morning on 11/13/16. -Consult cardiology (Dr. Ivey). Appreciate their therapeutic intervention and recommendations below: -Per cardiology recommendations, switch patient from Brilinta to Effient po qd. We will get 30 day supply of Effient to patient through case management. Discussed importance of compliance with patient. -Echocardiogram -continue on aspirin, statin, and beta misty -Morphine 2 mg when necessary chest pain. Give Benadryl with morphine -Percocet 5-325 mg 1 tab by mouth every 4 hours when necessary for pain 1-5 -Percocet 5-to 25 mg 2 tab by mouth every 4 hours when necessary for pain 6-10 -Aspirin 325 mg by mouth daily -Nitroglycerin when necessary for chest pain - (2) VESNA (acute kidney injury) Status: Resolved Plan: Patient has mild renal injury with a creatinine of 1.33, trended down to 1.04 His baseline is less than 1 We'll provide fluids as below. (3) FEN/PPX Status: Acute Plan: Fluids: Normal saline at 110 ml/hr Electrolytes: Monitor and replace when necessary Nutrition: Heart healthy diet Prophylaxis: Continue heparin drip started in the emergency room. Chronic medical problems: Hyperlipidemia- continue current statin Neuropathy-continue gabapentin Chronic back pain-continue home oxycodone Tobacco abuse-counseled cessation (Billy Allen MD R1) Billy Allen MD R1 Nov 13, 2016 12:45 Shikha Whalen MD Nov 13, 2016 20:17
[2016-11-13] MEDS ORDERED: oxyCODONE/ACETAMINOPHEN 5 MG/325 MG TAB PO PRN ×2 (14:00)
--- NOTE | 2016-11-13 14:23 | EC ---
Study Study Date:11/13/2016 STUDY CONCLUSIONS SUMMARY - Left ventricle: The cavity size was at the upper limits of normal. Wall thickness was normal. Systolic function was moderately reduced by visual assessment. The estimated ejection fraction was in the range of 40% to 45%. Diffuse hypokinesis. - Aortic valve: Valve area: 2.91cm^2(VTI). Valve area: 2.51cm^2 (Vmax). - Mitral valve: Mild regurgitation. - Right atrium: The atrium was mildly dilated. - Tricuspid valve: Mild regurgitation. If LV function is below 40, please consider prescribing an ACEI or ARB or document rationale for non-use. PROCEDURE DATA STUDY STATUS: Elective. Procedure: Transthoracic echocardiography. Image quality was good. Scanning was performed from the parasternal, apical, and subcostal acoustic windows. Study completion: The patient tolerated the procedure well. Transthoracic echocardiography. M-mode, complete 2D, complete spectral Doppler, and color Doppler. Height: Height: 66in. Weight: Weight: 156.7lb. Body mass index: BMI: 25.3kg/m^2. Body surface area: BSA: 1.8m^2. Patient status: Inpatient. CARDIAC ANATOMY LEFT VENTRICLE: The cavity size was at the upper limits of normal. Wall thickness was normal. Systolic function was moderately reduced by visual assessment. The estimated ejection fraction was in the range of 40% to 45%. Diffuse hypokinesis. AORTIC VALVE: Trileaflet; normal thickness leaflets. Doppler: Transvalvular velocity was within the normal range. There was no stenosis. No regurgitation. Valve area: 2.91cm^2(VTI). Indexed valve area: 1.62cm^2/m^2 (VTI). Valve area: 2.51cm^2 (Vmax). Indexed valve area: 1.39cm^2/m^2 (Vmax). Mean gradient: 1mm Hg (S). AORTA: Aortic root: The aortic root was normal in size. MITRAL VALVE: Structurally normal valve. Doppler: Transvalvular velocity was within the normal range. There was no evidence for stenosis. Mild regurgitation. Peak gradient: 4mm Hg (D). LEFT ATRIUM: The atrium was normal in size. RIGHT VENTRICLE: The cavity size was normal. Wall thickness was normal. PULMONIC VALVE: Doppler: Transvalvular velocity was within the normal range. There was no evidence for stenosis. No regurgitation. TRICUSPID VALVE: Structurally normal valve. Doppler: Transvalvular velocity was within the normal range. Mild regurgitation. PULMONARY ARTERY: The main pulmonary artery was normal-sized. Systolic pressure was within the normal range. RIGHT ATRIUM: The atrium was mildly dilated. PERICARDIUM: There was no pericardial effusion. SYSTEMIC VEINS: Inferior vena cava: The vessel was normal in size. Patient weight: 156.7lb _Ejection fraction:_ 65-75% _Fractional shortening:_ 32% up to 5Kg 5-11.5Kg 11.6-22.9Kg 23-45Kg 45-57Kg Aortic Root 7-13 <17 13-22 17-27 17-27 LA diam 6-13 <23 24-38 33-47 37-40 RVID 10-17 7-15 7-15 7-18 8-17 LVIDd 12-22 <32 24-38 33-47 37-40 LVPW 2-4 3-6 5-7 6-8 7-8 IVS 2-4 3-6 5-7 6-8 7-8 BASIC MEASUREMENTS ADULT NORMAL Left ventricle LV internal dimension, ED, chordal *53.1 mm 43-52 level, PLAX LV internal dimension, ES, chordal *44.7 mm 23-38 level, PLAX Fractional shortening, chordal level, *16 % >29 PLAX LV posterior wall thickness, ED 8.51 mm IVS/LVPW ratio, ED 1 <1.3 Ventricular septum Septal thickness, ED 8.52 mm Aortic valve Leaflet separation *14 mm 15-26 Aorta Root diameter, ED 32 mm Left atrium Anterior-posterior dimension 40 mm Anterior-posterior dimension index *2.22 cm/m^2 <2.2 Right ventricle RV internal dimension, ED, PLAX 34.2 mm 19-38 BASIC MEASUREMENTS ADULT NORMAL Aortic valve Leaflet separation *14 mm 15-26 DOPPLER MEASUREMENTS ADULT NORMAL Main pulmonary artery Pressure, S 25 mm Hg =30 Aortic valve Peak velocity, S 79.2 cm/s Mean velocity, S 52.7 cm/s VTI, S 12.3 cm Mean gradient, S 1 mm Hg Valve area, VTI 2.91 cm^2 Valve area index, VTI 1.62 cm^2/m^2 Valve area, Vmax 2.51 cm^2 Valve area index, Vmax 1.39 cm^2/m^2 Mitral valve Peak E-wave velocity 94.8 cm/s Peak A-wave velocity 55.8 cm/s Deceleration time *134 ms 150-230 Peak gradient, D 4 mm Hg Peak E/A ratio 1.7 Tricuspid valve Regurgitant peak velocity 234 cm/s Peak RV-RA gradient, S 22 mm Hg Maximal regurgitant velocity 234 cm/s Systemic veins Estimated CVP 5 mm Hg Right ventricle RV pressure, S 27 mm Hg <30 Pulmonic valve Peak velocity, S 62.7 cm/s LEGEND: Mean values are shown as u=mean value. Asterisk (*) velasco values outside specified normal range. Prepared and signed by Calvin Ivey [id number]
[2016-11-13 14:31] LABS: APTT (PATIENT) 30.8 SEC (24.3-30.1)
[2016-11-13] MEDS: TEMAZEPAM 15 MG CAP PO PRN (22:26)
--- NOTE | 2016-11-13 23:46 | EKG ---
Date Performed: 11/12/2016 Time Performed: 23:37:34 PTAGE: 61 years EKG: Sinus rhythm with PVC(s) Borderline ECG PREVIOUS TRACING : 11/12/2016 18.17 DOCTOR: Kinza Hawkins Interpretating Date/Time 11/13/2016 23:41:48
--- NOTE | 2016-11-13 23:54 | EKG ---
Date Performed: 11/12/2016 Time Performed: 18:17:00 PTAGE: 61 years EKG: Sinus rhythm Normal ECG PREVIOUS TRACING : 11/12/2016 11.33 DOCTOR: Kinza Hawkins Interpretating Date/Time 11/13/2016 23:47:26
[2016-11-14] VITALS (15 sets, daily range): BP systolic 102–125; BP diastolic 59–79; PULSE 75–88; RESP 16–17; TEMP 97.6–98.1; O2SAT 97
[2016-11-14] MEDS ORDERED: FUROSEMIDE 40 MG/4 ML VIAL ONE (01:23)
[2016-11-14] MEDS ORDERED: FUROSEMIDE 40 MG/4 ML VIAL IV PUSH ONE (01:30)
--- NOTE | 2016-11-14 01:33 | HHI.PR ---
Addendum to Inpatient Note Addendum Reason: Additional Documentation Additional Information ADDENDUM NOTE Subjective: Residents were paged regarding patient reporting shortness of breath and nurses noting wet sounding lungs. He has reported O2 sat 95% or greater on 2 L nasal cannula. Patient endorses shortness of breath and attributes it to having had cath procedure this morning. Patient was on NS at 100 mL per, discontinued tonight. He does not report current chest pain. Objective: Patient is sitting up in bed with legs slightly elevated. Patient is on 3L nasal cannula. Monitor showing pulse of 81 bpm. O2 sat documented at 100%. Afebrile per recent VS. Breathing is unlabored. Auscultation reveals diffusely decreased air movement without obvious crackles or rhonchi. Patient does have a wet sounding cough on exam. CV: Patient with regular rate and rhythm and no obvious murmurs. Abdomen soft with normal bowel sounds, no distention. Extremities: 2+ DP pulses. Assessment: 61-year-old male with a history of CAD, CHF, HTN who is status post cardiac catheterization this morning, recently with IVF recently discontinued ( i.e. @ approx 2100). Echo showing EF 40%. Low suspicion for infection and PE given VS wnl. Working diagnosis is fluid overload given echo findings and IVF administration. Plan: CXR stat IV Lasix 40mg once Monitor symptoms Consider D[place], further work-up if no improvement Lisa Rosado MD R1 Nov 14, 2016 01:33
--- NOTE | 2016-11-14 01:43 | RADRPT ---
EXAM DATE/TIME: 11/14/2016 01:17 [facility] COMPARISON: CHEST SINGLE AP, November 12, 2016, 11:20. INDICATIONS : Short of breath. MEDICAL HISTORY : Congestive heart failure. SURGICAL HISTORY : CABG. ENCOUNTER: Subsequent ACUITY: 2 days PAIN SCORE: 8/10 LOCATION: Bilateral chest FINDINGS: A single view of the chest demonstrates the lungs to be symmetrically aerated without evidence of mas s, infiltrate or effusion. The cardiomediastinal contours are unremarkable. Osseous structures are intact. Median sternotomy wires. CONCLUSION: No acute disease. Boom Almeida Jr., MD on November 14, 2016 at 1:41 Board Certified Radiologist. This report was verified electronically.
[2016-11-14 04:57] LABS: AUTOMATED NEUTROPHIL # 5.1 TH/MM3 (1.8-7.7); BASOPHIL # 0.1 TH/MM3 (0-0.2); BASOPHIL % 0.8 % (0.0-2.0); EOSINOPHIL # 0.3 TH/MM3 (0-0.4); EOSINOPHIL % 3.3 % (0.0-4.0); HEMATOCRIT 39.6 % (39.0-51.0); HEMO FLAGS DIFF FINAL; LYMPH % 25.4 % (9.0-44.0); LYMPHOCYTE # 2.1 TH/MM3 (1.0-4.8); MEAN CELL VOLUME 83.3 FL (80.0-100.0); MEAN CORPUSCULAR HEMOGLOBIN 27.7 PG (27.0-34.0); MEAN CORPUSCULAR HGB CONC 33.3 % (32.0-36.0); MONO % 8.7 % (0.0-8.0); NEUT % 61.8 % (16.0-70.0); PLATELET COUNT 214 TH/MM3 (150-450); RED BLOOD COUNT 4.75 MIL/MM3 (4.50-5.90); RED CELL DISTRIBUTION WIDTH 15.9 % (11.6-17.2); WHITE BLOOD COUNT 8.2 TH/MM3 (4.0-11.0)
[2016-11-14 05:40] LABS: BICARBONATE 26.4 MEQ/L (21.0-32.0); HDL CHOLESTEROL 40.3 MG/DL (40.0-60.0); POTASSIUM 3.7 MEQ/L (3.5-5.1)
[2016-11-14 06:17] LABS: CKMB 53.7 NG/ML (0.5-3.6)
--- NOTE | 2016-11-14 08:14 | HHI.FPPN ---
Subjective Remarks Had some shortness of breath overnight. Night residents saw and evaluated him. They ordered a chest x-ray, which showed no acute disease, and Lasix 40 mg IV, which caused significant diuresis. Otherwise, patient was afebrile with stable vital signs. This morning, patient reports that his chest pain is gone. Reminded patient to carry nitroglycerin with him at all times, and to take his Effient every day. Also informed patient that case management would be working with him later in the day to get him Effient and assist with follow-up. Emphasized to patient the importance of taking the Effient every day without exception because his life may very well dependent on it. Patient requested a shower; put in order for shower. (Billy Allen MD R1) Objective Vitals Vital Signs Date Time Temp Pulse Resp B/P Pulse Ox O2 Delivery O2 Flow Rate FiO2 11/14/16 07:00 97.8 82 17 125/79 97 11/14/16 07:00 80 11/14/16 06:00 77 11/14/16 05:00 77 11/14/16 04:00 75 11/14/16 03:00 97.6 79 16 118/70 97 11/14/16 03:00 75 11/14/16 02:00 76 11/14/16 01:00 83 11/14/16 00:00 80 11/13/16 23:10 80 11/13/16 23:00 97.9 82 20 108/67 94 11/13/16 22:00 82 11/13/16 21:00 83 11/13/16 20:00 80 11/13/16 19:00 81 11/13/16 19:00 97.2 81 18 104/53 93 11/13/16 18:18 80 11/13/16 17:00 83 104/69 11/13/16 17:00 82 11/13/16 16:00 76 11/13/16 16:00 78 96/63 11/13/16 15:00 78 92/60 11/13/16 15:00 98.4 75 16 92/60 96 11/13/16 15:00 75 11/13/16 14:00 73 11/13/16 14:00 83 119/72 11/13/16 13:00 77 108/69 11/13/16 13:00 75 11/13/16 12:00 78 11/13/16 12:00 78 126/77 11/13/16 11:30 97.8 75 18 107/74 100 11/13/16 11:20 70 I/O 11/13/16 11/13/16 11/13/16 11/14/16 11/14/16 11/14/16 06:59 14:59 22:59 06:59 14:59 22:59 Intake Total 1952 ml 720 ml 920 ml Output Total 750 ml 1525 ml 2075 ml Balance 1202 ml -805 ml -1155 ml Intake Oral 240 ml 720 ml 720 ml IV Total 1712 ml 200 ml Output Urine Total 750 ml 1525 ml 2075 ml # Bowel Movements 0 0 0 (Billy Allen MD R1) Result Diagram: 11/14/16 0420 11/14/16419 Imaging Echocardiogram showed ejection fraction 40-45%. Last Impressions Chest X-Ray 11/14/16 0000 Signed Impressions: Service Date/Time: Monday, November 14, 2016 01:17 - CONCLUSION: No acute disease. Boom Almeida Jr., MD Objective Remarks GENERAL: Well-nourished, well-developed patient. No acute distress. SKIN: Warm and dry. No rash. EYES: No scleral icterus. No injection or drainage. PERRLA. EOMI. HENT: Normocephalic. Atraumatic. MMM. NECK: Supple, trachea midline. No JVD or lymphadenopathy. CARDIOVASCULAR: Regular rate and rhythm without obvious murmurs, gallops, or rubs. RESPIRATORY: Breath sounds equal bilaterally. No accessory muscle use. CTAB. GASTROINTESTINAL: Abdomen soft, non-tender, nondistended. BS WNL. MUSCULOSKELETAL: No cyanosis or edema. Strength grossly WNL. No calf tenderness. BACK: Nontender without obvious deformity. NEURO/PSYCH: Afocal. Awake, alert, and oriented x3. (Billy Allen MD R1) A/P Assessment and Plan 61-year-old male with previous cardiac history including CABG and stents with poor follow-up who presents with chest pain. Initial EKG showed [address] depressions in leads 2, V2 through V5. Troponin trended 0.03, >40, >40. Cardiology notified with elevated troponin. Patient taken to the catheter lab this morning of 11/13/16. Patient had clot removal and ballooning, placement of 2 bare-metal stents along with repositioning of the existing drug-eluting stent: NSTEMI - complex anatomy. PCI BMS LAD/ramus. PTCA prox LAD. subacute thrombosis. Discharge Planning Discharge after echocardiogram per cardiology recommendations and assuming patient remains clinically stable. (Billy Allen MD R1) Attending Attestation Patient seen and examined. Case reviewed and discussed with the resident team. Agree with plan of care as discussed with me and documented in the resident note. (Shikha Whalen MD) Problem List: (1) Unstable angina Status: Acute Plan: Patient has a significant cardiac history s/p CABG and stents. However, he has had a normal stress test as recently as 09/2016; he does not have a carpenter prototype; will need to follow-up with one. Taken to the cardiac catheter lab this morning on 11/13/16. -Consult cardiology (Dr. Ivey). Appreciate their therapeutic intervention and recommendations below: -Per cardiology recommendations, switch patient from Brilinta to Effient po qd. We will get 30 day supply of Effient to patient through case management. Discussed importance of compliance with patient. -Echocardiogram showed ejection fraction 40-45%, diffuse hypokinesis, mild mitral regurgitation, mild atrial dilation, mild tricuspid regurgitation. -continue on aspirin, statin, and beta misty -Discharge today, follow-up as an outpatient. -Morphine 2 mg when necessary chest pain. Give Benadryl with morphine -Percocet 5-325 mg 1 tab by mouth every 4 hours when necessary for pain 1-5 -Percocet 5-to 25 mg 2 tab by mouth every 4 hours when necessary for pain 6-10 -Aspirin 325 mg by mouth daily -Nitroglycerin when necessary for chest pain (2) VESNA (acute kidney injury) Status: Resolved Plan: Patient has mild renal injury with a creatinine of 1.33, trended down to 1.04, then up to 1.19. His baseline is less than 1 We'll provide fluids as below. (3) FEN/PPX Status: Acute Plan: Fluids: Normal saline at 110 ml/hr Electrolytes: Monitor and replace when necessary Nutrition: Heart healthy diet Prophylaxis: Aspirin and Effient per cardiology recommendations Chronic medical problems: Hyperlipidemia- continue current statin Neuropathy-continue gabapentin Chronic back pain-continue home oxycodone Tobacco abuse-counseled cessation (Billy Allen MD R1) Billy Allen MD R1 Nov 14, 2016 08:14 Shikha Whalen MD Nov 14, 2016 14:15
--- NOTE | 2016-11-14 08:26 | PD.CARD.PN ---
Subjective Subjective Remarks no complaints doing well Objective Medications Active Medications Aspirin (Aspirin Chew) 81 mg DAILY PO; Start 11/13/16 at 09:00; Status Cancel Aspirin (Aspirin Chew) 81 mg DAILY PO; Start 11/14/16 at 09:00 Aspirin (Aspirin) 325 mg DAILY PO; Start 11/13/16 at 09:00; Stop 11/13/16 at 09:00 ; Status DC Atropine Sulfate (Atropine Inj) 1 mg STK-MED ONCE .ROUTE; Start 11/13/16 at 09:29 ; Stop 11/13/16 at 09:30; Status DC Atropine Sulfate 0.5 mg 0.5 mg UNSCH PRN IV; Start 11/13/16 at 11:15 Bacitracin (Bacitracin Oint Packet) 0.9 gm ONCE ONCE TOP; Start 11/13/16 at 11: 15; Stop 11/13/16 at 11:29; Status DC Cangrelor (Kengreal Inj) 50,000 mcg STK-MED ONCE IV Last administered on 09:10; Admin Dose 50,000 MCG; Start 11/13/16 at 09:10; Stop 11/13/16 at 09:11 ; Status DC Cangrelor/Sodium Chloride (Kengreal Inj/NS 250 ml Inj) 250 ml @ 0 mls/hr ONCE ONCE IV; Start 11/13/16 at 11:15; Stop 11/13/16 at 11:29; Status DC Fentanyl Citrate (fentaNYL INJ) 100 mcg STK-MED ONCE .ROUTE Last administered on 11/13/16 09:07; Admin Dose 100 MCG; Start 11/13/16 at 09:07; Stop 11/13/16 at 09:08; Status DC Fentanyl Citrate (fentaNYL INJ) 100 mcg STK-MED ONCE .ROUTE Last administered on 11/13/16 09:58; Admin Dose 100 MCG; Start 11/13/16 at 09:58; Stop 11/13/16 at 10:00; Status DC Fentanyl Citrate (fentaNYL INJ) 100 mcg STK-MED ONCE .ROUTE Last administered on 11/13/16 10:58; Admin Dose 100 MCG; Start 11/13/16 at 10:58; Stop 11/13/16 at 10:59; Status DC Furosemide (Lasix Inj) 40 mg ONCE ONCE IV PUSH Last administered on 11/14/16 01 :30; Admin Dose 40 MG; Start 11/14/16 at 01:30; Stop 11/14/16 at 01:31; Status DC Furosemide (Lasix Inj) 40 mg STK-MED ONCE .ROUTE; Start 11/14/16 at 01:23; Stop 11/14/16 at 01:24; Status DC Heparin Sodium (Porcine) (Heparin Inj) 10,000 units STK-MED ONCE .ROUTE Last administered on 11/13/16 09:10; Admin Dose 10,000 UNITS; Start 11/13/16 at 09:10 ; Stop 11/13/16 at 09:11; Status DC Heparin Sodium/ Sodium Chloride (Heparin-NS/Pf Inj) 500 ml @ As Directed STK- MED ONCE .ROUTE Last administered on 11/13/16 08:44; Admin Dose 100 MLS/HR; Start 11/13/16 at 08:44; Stop 11/13/16 at 08:51; Status DC Iohexol (OMNIPAQUE 350 INJ (Canal Equipment Maintenance Supervisor)) 100 ml STK-MED ONCE OTHER; Start 11/13/16 at 11:00; Stop 11/13/16 at 11:27; Status DC Lidocaine HCl (Xylocaine 1% Inj (50 ml)) 10 ml UNSCH PRN INFIL; Start 11/13/16 at 11:15; Stop 11/14/16 at 11:14 Lidocaine HCl 1 applic 1 applic UNSCH PRN TOP; Start 11/13/16 at 11:15 Metoprolol Tartrate (Lopressor) 12.5 mg Q12HR PO Last administered on 11/13/16 20:32; Admin Dose 12.5 MG; Start 11/13/16 at 09:00 Midazolam HCl (Versed Inj) 2 mg STK-MED ONCE .ROUTE Last administered on 09:07; Admin Dose 2 MG; Start 11/13/16 at 09:07; Stop 11/13/16 at 09:08; Status DC Midazolam HCl (Versed Inj) 2 mg STK-MED ONCE .ROUTE Last administered on 09:58; Admin Dose 2 MG; Start 11/13/16 at 09:58; Stop 11/13/16 at 10:00; Status DC Midazolam HCl (Versed Inj) 2 mg STK-MED ONCE .ROUTE Last administered on 10:58; Admin Dose 2 MG; Start 11/13/16 at 10:58; Stop 11/13/16 at 10:59; Status DC Midazolam HCl 2 mg 2 mg STK-MED ONCE .ROUTE Last administered on 11/13/16 08:38 ; Admin Dose 2 MG; Start 11/13/16 at 08:38; Stop 11/13/16 at 08:50; Status DC Morphine Sulfate (Morphine Inj) 2 mg Q3H PRN IV PUSH; Start 11/13/16 at 12:00 Oxycodone/ Acetaminophen (Percocet 5-325 Mg) 1 tab Q4H PRN PO Last administered on 11/14/16 03:28; Admin Dose 1 TAB; Start 11/13/16 at 14:00 Oxycodone/ Acetaminophen (Percocet 5-325 Mg) 2 tab Q4H PRN PO; Start 11/13/16 at 14:00 Pantoprazole Sodium (Protonix) 40 mg DAILY PO Last administered on 11/13/16 12: 22; Admin Dose 40 MG; Start 11/13/16 at 09:00 Prasugrel (Effient) 60 mg ONCE ONCE PO Last administered on 11/13/16 11:15; Admin Dose 60 MG; Start 11/13/16 at 11:15; Stop 11/13/16 at 11:29; Status DC Prasugrel (Effient) 60 mg STK-MED ONCE .ROUTE Last administered on 11/13/16 11: 05; Admin Dose 60 MG; Start 11/13/16 at 11:05; Stop 11/13/16 at 11:06; Status DC Prasugrel 10 mg 10 mg DAILY PO; Start 11/14/16 at 09:00 Pravastatin Sodium (Pravachol) 40 mg DAILY PO Last administered on 11/13/16 12: 23; Admin Dose 40 MG; Start 11/13/16 at 09:00 Sodium Chloride (NS 1000 ml Inj) 1,000 ml @ 100 mls/hr Q10H IV Last administered on 11/13/16 12:30; Admin Dose 100 MLS/HR; Start 11/13/16 at 11:11; Stop 11/13/16 at 23:10; Status DC Sodium Chloride (NS 250 ml Inj) 250 ml @ 500 mls/hr ONCE PRN IV; Start at 11:15; Stop 11/14/16 at 11:14 Sterile Water (Sterile Water For Inj) 10 ml STK-MED ONCE .ROUTE Last administered on 11/13/16t 09:11; Admin Dose 10 ML; Start 11/13/16 at 09:11; Stop 11/13/16 at 09:23; Status DC Vital Signs / I&O Vital Signs Date Time Temp Pulse Resp B/P Pulse Ox O2 Delivery O2 Flow Rate FiO2 11/14/16 08:00 78 11/14/16 07:00 97.8 82 17 125/79 97 11/14/16 07:00 80 11/14/16 06:00 77 11/14/16 05:00 77 11/14/16 04:00 75 11/14/16 03:00 97.6 79 16 118/70 97 11/14/16 03:00 75 11/14/16 02:00 76 11/14/16 01:00 83 11/14/16 00:00 80 11/13/16 23:10 80 11/13/16 23:00 97.9 82 20 108/67 94 11/13/16 22:00 82 11/13/16 21:00 83 11/13/16 20:00 80 11/13/16 19:00 81 11/13/16 19:00 97.2 81 18 104/53 93 11/13/16 18:18 80 11/13/16 17:00 83 104/69 11/13/16 17:00 82 11/13/16 16:00 76 11/13/16 16:00 78 96/63 11/13/16 15:00 78 92/60 11/13/16 15:00 98.4 75 16 92/60 96 11/13/16 15:00 75 11/13/16 14:00 73 11/13/16 14:00 83 119/72 11/13/16 13:00 77 108/69 11/13/16 13:00 75 11/13/16 12:00 78 11/13/16 12:00 78 126/77 11/13/16 11:30 97.8 75 18 107/74 100 11/13/16 11:20 70 I/O 1/3/17 1/311/13/16 11/14/16 11/14/16 11/14/16 07:00 15:00 23:00 07:00 15:00 23:00 Intake Total 1952 ml 720 ml 920 ml Output Total 750 ml 1525 ml 2075 ml Balance 1202 ml -805 ml -1155 ml Intake Oral 240 ml 720 ml 720 ml IV Total 1712 ml 200 ml Output Urine Total 750 ml 1525 ml 2075 ml # Bowel Movements 0 0 0 Physical Exam GENERAL: SKIN: Warm and dry. HEAD: Normocephalic. EYES: No scleral icterus. No injection or drainage. NECK: Supple, trachea midline. No JVD or lymphadenopathy. CARDIOVASCULAR: Regular rate and rhythm without murmurs, gallops, or rubs. RESPIRATORY: Breath sounds equal bilaterally. No accessory muscle use. GASTROINTESTINAL: Abdomen soft, non-tender, nondistended. MUSCULOSKELETAL: No cyanosis, or edema. BACK: Nontender without obvious deformity. No CVA tenderness. Laboratory Laboratory Tests Test 11/13/16 11/14/16 14:09 04:20 Activated Partial 30.8 SEC Thromboplast Time White Blood Count 8.2 TH/MM3 Red Blood Count 4.75 MIL/MM3 Hemoglobin 13.2 GM/DL Hematocrit 39.6 % Mean Corpuscular Volume 83.3 FL Mean Corpuscular Hemoglobin 27.7 PG Mean Corpuscular Hemoglobin 33.3 % Concent Red Cell Distribution Width 15.9 % Platelet Count 214 TH/MM3 Mean Platelet Volume 8.8 FL Neutrophils (%) (Auto) 61.8 % Lymphocytes (%) (Auto) 25.4 % Monocytes (%) (Auto) 8.7 % Eosinophils (%) (Auto) 3.3 % Basophils (%) (Auto) 0.8 % Neutrophils # (Auto) 5.1 TH/MM3 Lymphocytes # (Auto) 2.1 TH/MM3 Monocytes # (Auto) 0.7 TH/MM3 Eosinophils # (Auto) 0.3 TH/MM3 Basophils # (Auto) 0.1 TH/MM3 CBC Comment DIFF FINAL Differential Comment Sodium Level 140 MEQ/L Potassium Level 3.7 MEQ/L Chloride Level 104 MEQ/L Carbon Dioxide Level 26.4 MEQ/L Anion Gap 10 MEQ/L Blood Urea Nitrogen 11 MG/DL Creatinine 1.19 MG/DL Estimat Glomerular Filtration 62 ML/MIN Rate Random Glucose 109 MG/DL Calcium Level 8.9 MG/DL Total Creatine Kinase 987 U/L Creatine Kinase MB 53.7 NG/ML Creatine Kinase MB % 5.4 % Triglycerides Level 292 MG/DL Cholesterol Level 211 MG/DL LDL Cholesterol 112 MG/DL HDL Cholesterol 40.3 MG/DL Cholesterol/HDL Ratio 5.23 RATIO Imaging Last Impressions Chest X-Ray 11/14/16 0000 Signed Impressions: Service Date/Time: Monday, November 14, 2016 01:17 - CONCLUSION: No acute disease. Boom Almeida Jr., MD Assessment and Plan Assessment and Plan NSTEMI - complex anatomy. PCI BMS LAD/ramus. PTCA prox LAD. subacute thrombosis. switch to effient cont asa statin bb DC today FU OPD Calvin Ivey MD Nov 14, 2016 08:26
[2016-11-14] MEDS ORDERED: PRASUGREL 10 MG TAB PO SCH (09:00)
[2016-11-14] MEDS ORDERED: ASPIRIN 81 MG CHEW TAB PO SCH (09:00)
[2016-11-14] MEDS: PANTOPRAZOLE SOD 40 MG DELAYED RELEASE TAB PO SCH (09:22)
[2016-11-14] MEDS: METOPROLOL TARTRATE 25 MG TAB PO SCH (09:22)
[2016-11-14] MEDS: GABAPENTIN 300 MG CAP PO SCH ×2 (09:23→13:58)
[2016-11-14] MEDS: PRAVASTATIN SOD 40 MG TAB PO SCH (09:23)
--- NOTE | 2016-11-14 10:45 | EKG ---
Date Performed: 11/14/2016 Time Performed: 05:47:14 PTAGE: 61 years EKG: Sinus rhythm Normal ECG PREVIOUS TRACING : 11/13/2016 16.54 DOCTOR: Calvin Ivey Interpretating Date/Time 11/14/2016 10:45:13
--- NOTE | 2016-11-14 11:41 | EKG ---
Date Performed: 11/13/2016 Time Performed: 16:54:58 PTAGE: 61 years EKG: Sinus rhythm . ST junctional depression is nonspecific Borderline ECG PREVIOUS TRACING : 11/12/2016 23.37 DOCTOR: Calvin Ivey Interpretating Date/Time 11/14/2016 11:40:59
[2016-11-14] MEDS: ONDANSETRON HCL 4 MG/2 ML VIAL IV PRN (11:47)
--- NOTE | 2016-11-14 15:32 | HHI.DCPOC ---
Discharge Care Plan Diagnosis: (1) NSTEMI (non-ST elevated myocardial infarction) (2) Chest pain in adult (3) Status post cardiac catheterization Goals to Promote Your Health * To prevent worsening of your condition and complications, please take your medications (especially the Effient) as prescribed. * To maintain your health at the optimal level, please follow up with doctors as instructed. Directions to Meet Your Goals Take your medications as prescribed Follow your dietary instruction Follow activity as directed Keep your appointments as scheduled Take your immunizations and boosters as scheduled If your symptoms worsen call your PCP, if no PCP go to Urgent Care Center or Emergency Room Smoking is Dangerous to Your Health. Avoid second hand smoke Call the 24-hour hour crisis hotline for domestic abuse at Billy Allen MD R1 Nov 14, 2016 15:32
[2016-11-14] MEDS ORDERED: PRAS10TA PO (15:51)
[2016-11-14] MEDS ORDERED: METO25TA3 PO (15:51)
== END 2016-11-14 16:36 | disposition home or self-care (01) | DRG 249 ==
LOC: NEPA 10:53 → NEDA 12:51 → HCIN 17:09
PROVIDERS: ADMIT Family Medicine; ATTEND Family Medicine
PROC: 02703ZZ Dilation of Coronary Artery, One Artery, Percutaneous Approach (ICD-10-PCS; 2016-11-13)
PROC: 02C03ZZ Extirpation of Matter from Coronary Artery, One Artery, Percutaneous Approach (ICD-10-PCS; 2016-11-13)
PROC: 4A023N7 Measurement of Cardiac Sampling and Pressure, Left Heart, Percutaneous Approach (ICD-10-PCS; 2016-11-13)
PROC: B2131ZZ Fluoroscopy of Multiple Coronary Artery Bypass Grafts using Low Osmolar Contrast (ICD-10-PCS; 2016-11-13)
PROC: B2111ZZ Fluoroscopy of Multiple Coronary Arteries using Low Osmolar Contrast (ICD-10-PCS; 2016-11-13)
PROC: B241ZZ3 Ultrasonography of Multiple Coronary Arteries, Intravascular (ICD-10-PCS; 2016-11-13)
PROC: 02713EZ Dilation of Coronary Artery, Two Arteries with Two Intraluminal Devices, Percutaneous Approach (ICD-10-PCS; principal; 2016-11-13 08:45)
DX: I21.4 Non-ST elevation (NSTEMI) myocardial infarction (principal); N17.9 Acute kidney failure, unspecified; T82.897A Other specified complication of cardiac prosthetic devices, implants and grafts, initial encounter; I50.9 Heart failure, unspecified; G62.9 Polyneuropathy, unspecified; I25.110 Atherosclerotic heart disease of native coronary artery with unstable angina pectoris; J44.9 Chronic obstructive pulmonary disease, unspecified; E78.00 Pure hypercholesterolemia, unspecified; F41.9 Anxiety disorder, unspecified; I25.2 Old myocardial infarction; M19.90 Unspecified osteoarthritis, unspecified site; K21.9 Gastro-esophageal reflux disease without esophagitis; K44.9 Diaphragmatic hernia without obstruction or gangrene; Z87.442 Personal history of urinary calculi; G47.30 Sleep apnea, unspecified; G43.909 Migraine, unspecified, not intractable, without status migrainosus; Z82.49 Family history of ischemic heart disease and other diseases of the circulatory system; E78.5 Hyperlipidemia, unspecified; G89.21 Chronic pain due to trauma; M54.2 Cervicalgia; F17.210 Nicotine dependence, cigarettes, uncomplicated; I10 Essential (primary) hypertension; Z79.82 Long term (current) use of aspirin; Z95.1 Presence of aortocoronary bypass graft
CPT/HCPCS: 71010; 76937; 80048; 80053; 80061; 80307; 82550; 82552; 83880; 84484; 85002; 85025; 85347; 85610; 85730; 92920; 92928; 92929; 92973; 92978; 93005; 93306; 93454; 96365; 96368; 96375; C1725; C1753; C1757; C1769; C1876; C1887; C1893; C9460; J0461; J1644; J1940; J2250; J2270; J2405; J3010; J7030; J7040; Q9967

== ENCOUNTER 2016-11-22 02:41 | Inpatient (IN) | payer OTHER ==
[~2016-11-22] VITALS: Ht 167.6 cm; Wt 66.6 kg
[2016-11-22] VITALS (19 sets, daily range): BP systolic 89–140; BP diastolic 54–81; PULSE 65–106; RESP 18–20; TEMP 97.6–98.2; O2SAT 94–100
[~2016-11-22 02:41] MED LIST changes: -BRIL90TA PO; +METO25TA3 PO; +PRAS10TA PO
[2016-11-22] MEDS ORDERED: SODIUM CHLORIDE 0.9% FLUSH 5 ML FLUSH IVF PRN (03:30)
[2016-11-22 04:13] LABS: AUTOMATED NEUTROPHIL # 5.5 TH/MM3 (1.8-7.7); BASOPHIL # 0.1 TH/MM3 (0-0.2); BASOPHIL % 0.7 % (0.0-2.0); EOSINOPHIL # 0.2 TH/MM3 (0-0.4); EOSINOPHIL % 2.1 % (0.0-4.0); HEMATOCRIT 39.2 % (39.0-51.0); HEMO FLAGS DIFF FINAL; LYMPH % 21.3 % (9.0-44.0); LYMPHOCYTE # 1.7 TH/MM3 (1.0-4.8); MEAN CORPUSCULAR HEMOGLOBIN 27.1 PG (27.0-34.0); MEAN CORPUSCULAR HGB CONC 32.2 % (32.0-36.0); MONO % 7.6 % (0.0-8.0); NEUT % 68.3 % (16.0-70.0); PLATELET COUNT 272 TH/MM3 (150-450); RED BLOOD COUNT 4.66 MIL/MM3 (4.50-5.90); RED CELL DISTRIBUTION WIDTH 15.3 % (11.6-17.2); WHITE BLOOD COUNT 8.1 TH/MM3 (4.0-11.0)
[2016-11-22 04:28] LABS: ALT (GPT) 21 U/L (12-78); ANION GAP 6 MEQ/L (5-15); AST (GOT) 17 U/L (15-37); BICARBONATE 30.4 MEQ/L (21.0-32.0); BLOOD UREA NITROGEN 17 MG/DL (7-18); CHLORIDE 107 MEQ/L (98-107); GLOMERULAR FILTRATION RATE 66 ML/MIN (>89); POTASSIUM 3.7 MEQ/L (3.5-5.1); SODIUM (NA) 143 MEQ/L (136-145)
[2016-11-22 04:29] LABS: APTT (PATIENT) 25.8 SEC (24.3-30.1); PROTHROMBIN TIME - PATIENT 10.5 SEC (9.8-11.6)
[2016-11-22 04:32] LABS: ALKALINE PHOSPHATASE 75 U/L (45-117); TOTAL BILIRUBIN ADULT 0.3 MG/DL (0.2-1.0)
[2016-11-22] MEDS ORDERED: MORPHINE SULFATE 4 MG/ML INJ IV PUSH ONE (04:45)
[2016-11-22] MEDS ORDERED: ASPIRIN 81 MG CHEW TAB PO ONE (04:45)
[2016-11-22] MEDS: NITROGLYCERIN 0.4 MG SL 25 TABS/BTL SL SCH ×3 (04:55→05:20)
[2016-11-22] MEDS ORDERED: NALOXONE HCL 0.4 MG/ML AMP IV PRN (05:00)
[2016-11-22] MEDS ORDERED: SODIUM CHLORIDE 0.9% FLUSH 5 ML FLUSH FLUSH PRN (05:00)
--- NOTE | 2016-11-22 05:04 | RADRPT ---
EXAM DATE/TIME: 11/22/2016 04:24 [facility] COMPARISON: No previous studies available for comparison. INDICATIONS : Patient states chest pain. MEDICAL HISTORY : Congestive heart failure. SURGICAL HISTORY : CABG. Coronary artery stent. ENCOUNTER: Initial ACUITY: 1 day PAIN SCORE: 6/10 LOCATION: Bilateral chest FINDINGS: PA and lateral views of the chest demonstrate the lungs to be symmetrically aerated without evidence of mass, infiltrate or effusion. Previous median sternotomy. The cardiomediastinal contours are unrem arkable. Osseous structures are intact. Degenerative changes thoracic spine. CONCLUSION: No acute disease. Darren Mueller MD on November 22, 2016 at 5:02 Board Certified Radiologist. This report was verified electronically.
[2016-11-22] MEDS ORDERED: NITROGLYCERIN 0.4 MG SL 25 TABS/BTL SL PRN (05:15)
[2016-11-22] MEDS: HEPARIN-D5W INJ 250 ML IV SCH (05:28)
[2016-11-22] MEDS ORDERED: HEPARIN SODIUM - IV 10,000 UNITS/10 ML VIAL ONE (05:34)
[2016-11-22] MEDS: HEPARIN SODIUM - IV 10,000 UNITS/10 ML VIAL IV PRN ×2 (05:37→16:34)
--- NOTE | 2016-11-22 06:07 | PD ---
HPI Chief Complaint: Chest Pain Time Seen by Provider: 03:22 Travel History International Travel<30 days: No Contact w/Intl Traveler<30days: No Traveled to known affect area: No History of Present Illness HPI Patient is a 61-year-old male with a history of CABG presents to the emergency department today with feeling "like he is going to ." Patient states he does have and chest tightness in the center of his chest radiating to his left arm and numbness in his left arm for the past few weeks. He actually went to [facility] today but left AGAINST MEDICAL ADVICE because "I didn' t like the way they retreated me". Patient elaborates that he wasn't given pain medicine when he requested it. Patient has not been in touch with his case briefer and sustained some started. He also reports some shortness of breath as well as some nausea and vomiting which has been nonbilious and nonbloody. Denies any fever denies any cough or congestion. PFSH Past Medical History Hx Anticoagulant Therapy: Yes Arthritis: Yes Autoimmune Disease: No Anxiety: Yes Heart Rhythm Problems: Yes Cancer: No Cardiac Catheterization: Yes (WITH 2 STENTS) Cardiovascular Problems: Yes High Cholesterol: Yes Congestive Heart Failure: Yes COPD: Yes Cerebrovascular Accident: No Diabetes: No Diminished Hearing: No Endocrine: No Gastrointestinal Disorders: Yes GERD: Yes Genitourinary: Yes Hiatal Hernia: Yes Heparin Induced Thrombocytopen: No Hypertension: Yes Immune Disorder: No Implanted Vascular Access Dvce: No Kidney Stones: Yes Reproductive: No Immunizations Current: Yes Migraines: Yes Myocardial Infarction: Yes Seizures: No Sickle Cell Disease: No Sleep Apnea: Yes Ulcer: No Past Surgical History Abdominal Surgery: No Cardiac Surgery: Yes ( double cabg 2012 / 2015 for stents) Coronary Artery Bypass Graft: Yes (X 2) Ear Surgery: No Endocrine Surgery: No Eye Surgery: No Genitourinary Surgery: No Gynecologic Surgery: No Neurologic Surgery: No Oral Surgery: No Thoracic Surgery: Yes (HX of CABG x 2) Other Surgery: Yes Family History Family Myocardial Infarction: Yes Social History Alcohol Use: No (PT DENIES) Tobacco Use: No Substance Use: Yes (MARIJUANA, OPIATES ) Allergies-Medications (Allergen,Severity, Reaction): Coded Allergies: Penicillin (Verified Allergy, Unknown, Hives, 11/22/16) Reported Meds & Prescriptions Reported Meds & Active Scripts Active Effient (Prasugrel) 10 Mg Tab 10 Mg PO DAILY Metoprolol Tartrate 25 Mg Tab 12.5 Mg PO Q12HR Flexeril (Cyclobenzaprine HCl) 10 Mg Tab 10 Mg PO TID PRN 10 Days Ventolin Hfa 18 GM Inh (Albuterol Sulfate) 90 Mcg/Act Aer 2 Puff INH Q4-6H PRN Neurontin (Gabapentin) 300 Mg Cap 900 Mg PO TID Pravastatin 40 Mg Tab 40 Mg PO DAILY Nitroglycerin SL (Nitroglycerin) 0.3 Mg Subl 0.3 Mg SL DIRECTED PRN ONE TABLET UNDER THE TONGUE NEEDED FOR CHEST PAIN, MAY REPEAT EVERY FIVE MINUTES FOR A TOTAL OF 3 DOSES OR CALL 911 IF NO RELIEF. Protonix (Pantoprazole Sodium) 40 Mg Tab 40 Mg PO DAILY Reported Aspirin 81 Mg Chew 81 Mg CHEW DAILY Roxicodone (Oxycodone HCl) 30 Mg Tab 30 Mg PO TID Review of Systems Except as stated in HPI: all other systems reviewed are Neg Physical Exam Narrative GENERAL: Well-developed well-nourished appears chronically ill but in no acute distress. SKIN: Warm and dry. HEAD: Atraumatic. Normocephalic. EYES: Pupils equal and round. No scleral icterus. No injection or drainage. ENT: No nasal bleeding or discharge. Mucous membranes pink and moist. NECK: Trachea midline. No JVD. CARDIOVASCULAR: Regular rate and rhythm. No murmur appreciated. Midline sternotomy scar was well-healed. 2+ bilaterally equal pulses in all 4 extremities. No edema. RESPIRATORY: No accessory muscle use. Clear to auscultation. Breath sounds equal bilaterally. GASTROINTESTINAL: Abdomen soft, non-tender, nondistended. Hepatic and splenic margins not palpable. MUSCULOSKELETAL: No obvious deformities. No clubbing. No cyanosis. No edema. NEUROLOGICAL: Awake and alert. No obvious cranial nerve deficits. Motor grossly within normal limits. Normal speech. PSYCHIATRIC: Appropriate mood and affect; insight and judgment normal. Data Data Last Documented VS Vital Signs Date Time Temp Pulse Resp B/P Pulse Ox O2 Delivery O2 Flow Rate FiO2 11/22/16 04:58 85 18 113/66 95 Nasal Cannula 2 11/22/16 02:47 97.8 Orders Complete Blood Count With Diff (11/22/16 03:22) Comprehensive Metabolic Panel (11/22/16 03:22) Magnesium (Mg) (11/22/16 03:22) Prothrombin Time / Inr (Pt) (11/22/16 03:22) Act Partial Throm Time (Ptt) (11/22/16 03:22) Troponin I (11/22/16 03:22) Ecg Monitoring (11/22/16 03:22) Bilateral Bp Monitoring (11/22/16 03:22) Iv Access Insert/Monitor (11/22/16 03:22) Oximetry (11/22/16 03:22) Oxygen Administration (11/22/16 03:22) Sodium Chloride 0.9% Flush (Ns Flush) (11/22/16 03:30) Chest, Pa & Lat (11/22/16 03:22) Alcohol (Ethanol) (11/22/16 03:22) Aspirin Chew (Aspirin Chew) (11/22/16 04:45) Morphine Inj (Morphine Inj) (11/22/16 04:45) Nitroglycerin Sl (Nitrostat Sl) (11/22/16 04:45) Admit Order (Ed Use Only) (11/22/16 ) Labs Laboratory Tests Test 11/22/16 04:00 White Blood Count 8.1 TH/MM3 Red Blood Count 4.66 MIL/MM3 Hemoglobin 12.6 GM/DL Hematocrit 39.2 % Mean Corpuscular Volume 84.0 FL Mean Corpuscular Hemoglobin 27.1 PG Mean Corpuscular Hemoglobin 32.2 % Concent Red Cell Distribution Width 15.3 % Platelet Count 272 TH/MM3 Mean Platelet Volume 8.7 FL Neutrophils (%) (Auto) 68.3 % Lymphocytes (%) (Auto) 21.3 % Monocytes (%) (Auto) 7.6 % Eosinophils (%) (Auto) 2.1 % Basophils (%) (Auto) 0.7 % Neutrophils # (Auto) 5.5 TH/MM3 Lymphocytes # (Auto) 1.7 TH/MM3 Monocytes # (Auto) 0.6 TH/MM3 Eosinophils # (Auto) 0.2 TH/MM3 Basophils # (Auto) 0.1 TH/MM3 CBC Comment DIFF FINAL Differential Comment Prothrombin Time 10.5 SEC Prothromb Time International 1.0 RATIO Ratio Activated Partial 25.8 SEC Thromboplast Time Sodium Level 143 MEQ/L Potassium Level 3.7 MEQ/L Chloride Level 107 MEQ/L Carbon Dioxide Level 30.4 MEQ/L Anion Gap 6 MEQ/L Blood Urea Nitrogen 17 MG/DL Creatinine 1.13 MG/DL Estimat Glomerular Filtration 66 ML/MIN Rate Random Glucose 97 MG/DL Calcium Level 8.8 MG/DL Magnesium Level 2.0 MG/DL Total Bilirubin 0.3 MG/DL Aspartate Amino Transf 17 U/L (AST/SGOT) Alanine Aminotransferase 21 U/L (ALT/SGPT) Alkaline Phosphatase 75 U/L Troponin I 0.29 NG/ML Total Protein 7.6 GM/DL Albumin 4.0 GM/DL Ethyl Alcohol Level LESS THAN 3 MG/DL MDM Medical Decision Making Medical Screen Exam Complete: Yes Emergency Medical Condition: Yes Interpretation(s) EKG shows normal sinus rhythm with normal axis and normal R-wave progression. No concerning ST-T changes. This is a normal EKG. Differential Diagnosis ACS, AMI, NSTEMI, STEMI. Narrative Course Patient roomed in the emergency department, appears chronically ill but in no acute distress. Was given nitroglycerin as well as morphine. Troponin returns a 0.30. Given his history this is highly concerning for unstable angina and NSTEMI. Vital signs are stable, chest x-ray reassuring. Patient was discussed with Dr. Hernandez who will admit. Diagnosis Primary Impression: NSTEMI (non-ST elevated myocardial infarction) Admitting Information Admitting Physician Requests: Admit Condition: Stable Abe Nguyen MD Nov 22, 2016 06:07
[2016-11-22] MEDS ORDERED: METOPROLOL TARTRATE 25 MG TAB PO SCH (09:00)
[2016-11-22] MEDS ORDERED: PRAVASTATIN SOD 40 MG TAB PO SCH (09:00)
[2016-11-22] MEDS: PRASUGREL 10 MG TAB PO SCH (09:40)
[2016-11-22] MEDS: ASPIRIN 81 MG CHEW TAB CHEW SCH (09:40)
[2016-11-22] MEDS: PANTOPRAZOLE SOD 40 MG DELAYED RELEASE TAB PO SCH (09:40)
[2016-11-22] MEDS: SODIUM CHLORIDE 0.9% FLUSH 5 ML FLUSH FLUSH SCH ×2 (09:40→20:15)
[2016-11-22] MEDS ORDERED: HEPARIN SODIUM - IV 10,000 UNITS/10 ML VIAL IV PRN (11:00)
--- NOTE | 2016-11-22 11:27 | EKG ---
Date Performed: 11/22/2016 Time Performed: 02:52:13 PTAGE: 61 years EKG: Sinus rhythm T WAVES ARE SLIGHTLY FLATTER SINCE THE PRIOR TRACING BORDERLINE ECG PREVIOUS TRACING : 11/14/2016 05.47 DOCTOR: Jonny Lopez Interpretating Date/Time 11/22/2016 11:25:55
--- NOTE | 2016-11-22 11:47 | HHI.HP ---
[facility] Service [facility] Primary Care Physician No Primary Care Physician Admission Diagnosis NSTEMI Diagnoses: Chief Complaint: Chest pain Travel History International Travel<30 Days: No Contact w/Intl Traveler <30 Da: No Traveled to Known Affected Are: No History of Present Illness This is a 61-year-old male with history of coronary artery disease, CABG, status post previous stenting in the past presenting with chest pain. Of note, patient was admitted recently, about a week ago for unstable angina, patient was Low, status post bare-metal stenting of the LAD and PTCA of the proximal LAD. Patient has been fine until yesterday when he started having severe 10 over 10 chest pain while walking, described as pressure, radiating to the jaw, associated with nausea and diaphoresis but no vomiting. Has been went away after one to 2 hours. Chest pain right now is mild, about 4/10. Patient also has a cough, productive with clear sputum but no fever or chills. Patient was monitored short of breath yesterday but this has resolved. 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 [email or web address]. Review of Systems ROS Limitations: Other (All other pertinent systems were reviewed and are negative.) Past Family Social History Past Medical History Chronic pain from multiple disc injuries in his neck and back Hyperlipidemia COPD CHF Neuropathy CAD Past Surgical History CABG 2 in 2011 Stent placement 2 - 6 months ago Reported Medications Effient (Prasugrel) 10 Mg Tab 10 Mg PO DAILY Metoprolol Tartrate 25 Mg Tab 12.5 Mg PO Q12HR Flexeril (Cyclobenzaprine HCl) 10 Mg Tab 10 Mg PO TID PRN 10 Days Ventolin Hfa 18 GM Inh (Albuterol Sulfate) 90 Mcg/Act Aer 2 Puff INH Q4-6H PRN Neurontin (Gabapentin) 300 Mg Cap 900 Mg PO TID Pravastatin 40 Mg Tab 40 Mg PO DAILY Nitroglycerin SL (Nitroglycerin) 0.3 Mg Subl 0.3 Mg SL DIRECTED PRN ONE TABLET UNDER THE TONGUE NEEDED FOR CHEST PAIN, MAY REPEAT EVERY FIVE MINUTES FOR A TOTAL OF 3 DOSES OR CALL 911 IF NO RELIEF. Protonix (Pantoprazole Sodium) 40 Mg Tab 40 Mg PO DAILY Aspirin 81 Mg Chew 81 Mg CHEW DAILY Roxicodone (Oxycodone HCl) 30 Mg Tab 30 Mg PO TID Allergies: Coded Allergies: Penicillin (Verified Allergy, Unknown, Hives, 11/22/16) Family History Father of an IA at age 42, mother of an IA at age 92. Social History Smokes 5 cigarettes for about 45 years, stopped 2 weeks ago. Denies alcohol use. Uses marijuana. Physical Exam Vital Signs Vital Signs Date Time Temp Pulse Resp B/P Pulse Ox O2 Delivery O2 Flow Rate FiO2 11/22/16 11:11 98.0 65 18 116/80 100 11/22/16 11:11 65 11/22/16 10:10 69 11/22/16 09:51 98.2 69 18 140/81 100 11/22/16 09:51 69 11/22/16 09:00 72 18 137/78 99 Nasal Cannula 2 11/22/16 06:56 68 18 107/68 98 2 11/22/16 05:40 80 20 89/58 96 Nasal Cannula 2 11/22/16 05:39 82 20 89/54 96 Nasal Cannula 2 11/22/16 04:58 85 18 113/66 95 Nasal Cannula 2 11/22/16 04:57 94 Nasal Cannula 2 11/22/16 04:56 85 18 106/62 94 Room Air 11/22/16 02:47 97.8 106 18 111/72 Physical Exam GENERAL: Not in acute distress, well-nourished. HEAD: Atraumatic. Normocephalic. No temporal or scalp tenderness. EYES: PERRL, full EOMs, no jaundice, nonicteric, pink conjunctivae without injection, moist mucosa ENT: Nose without bleeding, purulent drainage. Throat without erythema, tonsillar hypertrophy or exudate. Uvula midline. Airway patent. NECK: Trachea midline, no mass, no obvious thyromegaly. No JVD or lymphadenopathy. CARDIOVASCULAR: Regular rate and rhythm without murmurs, gallops, or rubs. RESPIRATORY: Clear to auscultation with normal respiratory effort. Breath sounds equal bilaterally. No use of accessory muscles of respiration. GASTROINTESTINAL: Abdomen soft, normal bowel sounds, non-tender, nondistended. No hepato-splenomegaly or palpable mass. No guarding. GEORGE and exam deferred. MUSCULOSKELETAL: Extremities without clubbing, cyanosis, or edema. No joint tendernes. No calf tenderness. Distal pulses intact, 2+ bilaterally. INTEGUMENTARY: Warm and dry, no rash of generalized distribution. NEUROLOGICAL: Awake, alert, oriented 3. No obvious cranial nerve deficits. Moves all 4 extremities, muscle strength testing 5 over 5. Motor and sensory grossly within normal limits. .Supple neck, no meningeal signs. Grossly negative cerebellar examination. No focal neurologic deficits. PSYCHIATRIC: Normal mood, appropriate affect. Laboratory Laboratory Tests Test 11/22/16 04:00 White Blood Count 8.1 Red Blood Count 4.66 Hemoglobin 12.6 Hematocrit 39.2 Mean Corpuscular Volume 84.0 Mean Corpuscular Hemoglobin 27.1 Mean Corpuscular Hemoglobin 32.2 Concent Red Cell Distribution Width 15.3 Platelet Count 272 Mean Platelet Volume 8.7 Neutrophils (%) (Auto) 68.3 Lymphocytes (%) (Auto) 21.3 Monocytes (%) (Auto) 7.6 Eosinophils (%) (Auto) 2.1 Basophils (%) (Auto) 0.7 Neutrophils # (Auto) 5.5 Lymphocytes # (Auto) 1.7 Monocytes # (Auto) 0.6 Eosinophils # (Auto) 0.2 Basophils # (Auto) 0.1 CBC Comment DIFF FINAL Differential Comment Prothrombin Time 10.5 Prothromb Time International 1.0 Ratio Activated Partial 25.8 Thromboplast Time Sodium Level 143 Potassium Level 3.7 Chloride Level 107 Carbon Dioxide Level 30.4 Anion Gap 6 Blood Urea Nitrogen 17 Creatinine 1.13 Estimat Glomerular Filtration 66 Rate Random Glucose 97 Calcium Level 8.8 Magnesium Level 2.0 Total Bilirubin 0.3 Aspartate Amino Transf 17 (AST/SGOT) Alanine Aminotransferase 21 (ALT/SGPT) Alkaline Phosphatase 75 Troponin I 0.29 Total Protein 7.6 Albumin 4.0 Ethyl Alcohol Level LESS THAN 3 Result Diagram: 11/22/16 0400 11/22/16 040 Imaging Last Impressions Chest X-Ray 11/22/16 0322 Signed Impressions: Service Date/Time: November 04:24 - CONCLUSION: No acute disease. Darren Mueller MD Assessment and Plan Assessment and Plan 61-year-old male with previous cardiac history including CABG and stenting, recently admitted in the hospital for unstable angina, status post stenting with a bare metal stent of the LAD and PTCA of proximal LAD with subacute thrombosis. Non-ST elevated myocardial infarction-EKG personally reviewed showed T-wave flattening, no ST elevation. Troponin is 0.29, continue heparin, consult cardiology, status post bare-metal stent placement of the LAD and angioplasty of the LAD about a week ago. Continue Effient, aspirin, heparin drip, metoprolol, statin. Chest x-ray personally reviewed unremarkable. Continues show troponin and EKG. Chronic neck pain-from a fall many years back, continue Flexeril, oxycodone and gabapentin. DVT prophylaxis: On heparin Physician Certification 2 Midnight Certification Type: Admission for Inpatient Services Order for Inpatient Services The services are ordered in accordance with Medicare regulations or non- Medicare payer requirements, as applicable. In the case of services not specified as inpatient-only, they are appropriately provided as inpatient services in accordance with the 2-midnight benchmark. Estimated LOS (days): 2 days is the estimated time the patient will need to remain in the hospital, assuming treatment plan goals are met and no additional complications. Post-Hospital Plan: Home Sofie Chisholm MD Nov 22, 2016 11:47
[2016-11-22] MEDS: GABAPENTIN 300 MG CAP PO SCH ×2 (11:51→17:54)
[2016-11-22] MEDS ORDERED: ENALAPRIL MALEATE 2.5 MG TAB PO ONE (12:30)
--- NOTE | 2016-11-22 15:42 | MB ---
cc: EDILIA NUÑEZ DATE OF CONSULTATION: 11/22/2016. REASON FOR CONSULTATION: Chest pain, elevated troponins. HISTORY OF PRESENT ILLNESS: 61-year-old male with past medical history significant for CABG x2 in 2012, negative stress test on 11/07/2016, PCI to LM-LAD 11/07/[address] [facility], stent thrombosis on 11/13/[address] Ivey who presents to the hospital with complaints of chest pain. The patient states that he has not been compliant with medications including aspirin and Effient. He reports chest discomfort for the last two days described as left pectoral to mid- sternal 6/10 in intensity like someone was standing on his chest with associated shortness of breath. He states his pain is consistent with his previous angina. He went [facility] 11/20/16 was seen by interventional cardiology who performed a coronary angiogram which revealed patent bypass grafts as well as patent recently placed stents. He was treated medically for his chest discomfort. Unfortunately the patient was unsatisfied with the care so left against medical advice and presented to [facility]. Cardiology has been re-consulted to help with management of his chest pain. Currently he remains hemodynamically stable and chest pain-free. He denies shortness of breath, palpitations, near-syncope, lightheadedness or bleeding issues. He does report being somewhat inconsistent with the medication regimen. REVIEW OF SYSTEMS: Negative except for that mentioned in the history of present illness. ALLERGIES: PENICILLIN. CARDIAC MEDICATIONS AT HOME: 1. Aspirin 81. 2. Metoprolol 25 twice a day. 3. Nitroglycerin sublingual. 4. Effient 10 milligrams p.o. daily. 5. Pravastatin 40 milligrams p.o. daily. PAST MEDICAL HISTORY: 1. Chronic pain from multiple disc injuries in his neck and back on chronic oxycodone and Gabapentin. 2. Hyperlipidemia. 3. COPD. 4. Heart failure. 5. Neuropathy. 6. Coronary artery disease. PAST SURGICAL HISTORY: 1. CABG x2 in 2011. 2. Percutaneous coronary intervention / recent stent placed LAD, ramus and left main. FAMILY HISTORY: Noncontributory. SOCIAL HISTORY: He is an active smoker. Denies alcohol use or illicit drug abuse. PHYSICAL EXAMINATION: VITAL SIGNS: Temperature 98, pulse 65, respiratory rate 18, blood pressure 116/80 and O2 sat 100% room on 2 liters nasal cannula. GENERAL: He is awake, alert and oriented times three, well-nourished, well- developed and in no acute distress. NECK: There is no jugular venous distention. No carotid bruits. No adenopathy. HEART: Regular rhythm. There are no murmurs, rubs or gallops appreciated. No lift, heave or thrill. LUNGS: Clear to auscultation bilaterally. No dyspnea at rest. ABDOMEN: Positive bowel sounds. Soft, nontender and nondistended. EXTREMITIES: There is no edema. No cyanosis. Peripheral pulses are intact. LABORATORY DATA: CBC: Hemoglobin 12, hematocrit 39, platelet count 272,000. INR 1. Chemistry: Sodium 143, potassium 3.7, chloride 107, bicarbonate of 30, BUN 17 and creatinine 1.1. Troponins are 0.29 and 0.23. CARDIOLOGY STUDIES: EKG shows sinus rhythm with no signs of ischemia. Cardiac catheterization done at [facility] on 11/20/2016 showed severe [place] coronary artery disease status post bypass surgery with patent graft and widely patent stents, continued stenosis of the ramus branch. DIAGNOSTIC IMPRESSION: 1. Stable angina. 2. Atherosclerotic heart disease status post previous CABG in 2012. 3. Hypertension. 4. Hyperlipidemia. 5. COPD. 6. Tobacco abuse. 7. Noncompliance with medications. ASSESSMENT AND PLAN: 61-year-old male with the above-noted history and findings readmitted to [place] with complaints of chest pain, recent cathed at [facility] showing unchanged coronary anatomy. He has an issue with compliance with medications. Currently he remains chest pain-free and hemodynamically stable. At this point, I would not consider re-catheterization; rather I would pursue aggressive medical management of his angina. 1. Cont Aspirin and Effient. 3. Optimize the metoprolol as tolerated by blood pressure and heart rate. 4. Start a long-acting nitrate. Imdur 30mg P daily 5. Discontinue heparin drip. 6. Change statin to Lipitor 80mg Po daily. 7. Start a low-dose YOBANY inhibitor. Thank you for the opportunity to take part in the care of this patient. Will follow with you. Edilia Nuñez MD REGULATORY ADMINISTRATOR/JCC /12:07 PM /3:22 PM ANTOINETTE
[2016-11-22 15:43] LABS: APTT (PATIENT) 36.8 SEC (24.3-30.1)
--- NOTE | 2016-11-22 19:35 | EKG ---
Date Performed: 11/22/2016 Time Performed: 10:01:48 PTAGE: 61 years EKG: Sinus rhythm Septal T wave changes are nonspecific Compared to prior tracing no significant change Borderline ECG PREVIOUS TRACING : 11/22/2016 02.52 DOCTOR: Jonny Lopez Interpretating Date/Time 11/22/2016 19:33:36
[2016-11-22] MEDS: METOPROLOL TARTRATE 25 MG TAB PO SCH (20:15)
[2016-11-22 21:39] LABS: APTT (PATIENT) 41.5 SEC (24.3-30.1)
[2016-11-23] VITALS (7 sets, daily range): BP systolic 93–112; BP diastolic 51–70; PULSE 61–69; RESP 18–20; TEMP 97.5–98.4; O2SAT 95–100
[2016-11-23] MEDS ORDERED: traMADol HCL 50 MG TAB PO ONE (02:00)
[2016-11-23 05:34] LABS: APTT (PATIENT) 38.5 SEC (24.3-30.1)
[2016-11-23] MEDS: ISOSORBIDE MONONITRATE 30 MG TAB PO SCH (06:02)
[2016-11-23] MEDS: HEPARIN-D5W INJ 250 ML IV SCH (06:04)
[2016-11-23] MEDS: ATORVASTATIN 80 MG TAB PO SCH (08:44)
[2016-11-23] MEDS: METOPROLOL TARTRATE 25 MG TAB PO SCH ×2 (08:44→20:24)
[2016-11-23] MEDS: ASPIRIN 81 MG CHEW TAB CHEW SCH (08:44)
[2016-11-23] MEDS: PRASUGREL 10 MG TAB PO SCH (08:45)
[2016-11-23] MEDS: PANTOPRAZOLE SOD 40 MG DELAYED RELEASE TAB PO SCH (08:45)
[2016-11-23] MEDS: GABAPENTIN 300 MG CAP PO SCH ×3 (08:45→16:10)
--- NOTE | 2016-11-23 11:37 | HHI.PR ---
Subjective Remarks Follow for chest pain Still with chest pain occasionally, waxes and wanes, moderate, more than anything, he is concerned because he severe short of breath even when talking and ambulating. Coughing but nonproductive. No fever or chills. No lower extremity edema. But severe dyspnea on exertion. Objective Vitals Vital Signs Date Time Temp Pulse Resp B/P Pulse Ox O2 Delivery O2 Flow Rate FiO2 11/23/16 07:00 98.4 65 20 104/70 96 11/23/16 03:00 97.7 61 93/64 95 11/23/16 03:00 61 11/22/16 23:00 97.6 67 103/67 98 11/22/16 23:00 67 11/22/16 19:04 18 11/22/16 19:00 97.7 73 111/68 95 11/22/16 19:00 73 11/22/16 18:06 82 11/22/16 17:23 72 11/22/16 16:02 72 11/22/16 15:08 98.0 74 18 108/68 96 11/22/16 15:08 74 11/22/16 14:12 69 11/22/16 13:06 73 11/22/16 12:37 68 I/O 11/22/16 11/22/16 11/22/16 11/23/16 11/23/16 11/23/16 07:00 15:00 23:00 07:00 15:00 23:00 Intake Total 600 ml 240 ml Output Total 1150 ml 600 ml Balance -550 ml -360 ml Intake Oral 600 ml 240 ml Output Urine Total 1150 ml 600 ml # Bowel Movements 0 Result Diagram: 11/22/16 0400 11/22/16 0400 Imaging Last Impressions Chest X-Ray 11/22/16 0322 Signed Impressions: Service Date/Time: November 04:24 - CONCLUSION: No acute disease. Darren Mueller MD Objective Remarks Not in distress, mildly winded, well-nourished, looks stated age PERRL, pink conjunctiva without injection, anicteric Nose without bleeding, airway patent, oropharynx clear Supple neck, no masses or thyromegaly, trachea midline Normal rate and regular rhythm, no murmurs gallops or rubs appreciated. Decreased breath sounds symmetrically with crackles in the right base, no wheezing. Normal bowel sounds, soft, non-tender, nondistended, no guarding. Extremities without clubbing, cyanosis, or edema. No rash of generalized distribution. Skin is warm and dry. AAO x3, no cranial nerve deficits, moves all 4 extremities, no focal neurologic deficits A/P Assessment and Plan 61-year-old male with previous cardiac history including CABG and stenting, recently admitted in the hospital for unstable angina, status post stenting with a bare metal stent of the LAD and PTCA of proximal LAD with subacute thrombosis. Non-ST elevated myocardial infarction-EKG personally reviewed showed T-wave flattening, no ST elevation. Troponin maxed at 0.29, cardiology consulted, optimize medical management for now. Stop heparin. Status post bare-metal stent placement of the LAD and angioplasty of the LAD about a week ago. Continue Effient, aspirin, metoprolol, switch statin to atorvastatin, start long -acting Imdur, possibly start YOBANY inhibitors if blood pressure allows. Shortness of breath-? Congestive heart failure-review of records revealed an ejection fraction of 45-50% from an echocardiogram done on 11/13/16. Check BNP and recheck chest x-ray. Might need diuresis. Chronic neck pain-from a fall many years back, continue Flexeril, oxycodone and gabapentin. Tramadol as needed. DVT prophylaxis: On heparin Ambulate. Sofie Chisholm MD Nov 23, 2016 11:37
[2016-11-23 12:04] LABS: APTT (PATIENT) 37.6 SEC (24.3-30.1)
[2016-11-23] MEDS: NICOTINE 21 MG/24 HR PATCH TD SCH (12:30)
[2016-11-23] MEDS: HEPARIN SODIUM - SQ 10,000 UNITS/ML VIAL SQ SCH ×2 (14:00→20:24)
[2016-11-23] MEDS ORDERED: FUROSEMIDE 20 MG/2 ML VIAL IV PUSH ONE (15:00)
--- NOTE | 2016-11-23 15:48 | PD.CARD.PN ---
Subjective Subjective Remarks atypical chest pain Objective Medications Current Medications Medications (Trade) Dose Ordered Sig/Libby Route Start Time Stop Time Status Last Admin (NS Flush) 2 ml UNSCH PRN FLUSH 11/22/16 05:00 (NS Flush) 2 ml BID FLUSH 11/22/16 09:00 11/22/16 20:15 (Narcan Inj) 0.4 mg UNSCH PRN IV 11/22/16 05:00 (Nitrostat Sl) 0.4 mg Q5M PRN SL 11/22/16 05:15 (Aspirin Chew) 81 mg DAILY CHEW 11/22/16 09:00 11/23/16 08:44 (Flexeril) 10 mg TID PRN PO 11/22/16 06:30 (Protonix) 40 mg DAILY PO 11/22/16 09:00 11/23/16 08:45 (Effient) 10 mg DAILY PO 11/22/16 09:00 11/23/16 08:45 (Proair Hfa Inh) 2 puff Q4H PRN INH 11/22/16 11:30 (Neurontin) 900 mg TID PO 11/22/16 13:00 11/23/16 12:29 (Roxicodone) 30 mg TID PO 11/22/16 13:00 11/23/16 12:30 (Lopressor) 25 mg Q12HR PO 11/22/16 21:00 11/23/16 08:44 (Lipitor) 80 mg DAILY PO 11/23/16 09:00 11/23/16 08:44 (Imdur) 30 mg DAILY@07 PO 11/23/16 07:00 11/23/16 06:02 (Habitrol 21 Mg Patch.24 Hr) 1 patch DAILY TD 11/23/16 12:00 11/23/16 12:30 (Heparin Inj) 5,000 units Q8HR SQ 11/23/16 14:00 (Ultram) 50 mg Q8H PRN PO 11/23/16 11:45 Miscellaneous Information 1 DAILY TD 11/24/16 09:00 Vital Signs / I&O Vital Signs Date Time Temp Pulse Resp B/P Pulse Ox O2 Delivery O2 Flow Rate FiO2 11/23/16 11:00 98.0 64 18 98/68 100 11/23/16 07:00 98.4 65 20 104/70 96 11/23/16 03:00 97.7 61 93/64 95 11/23/16 03:00 61 11/22/16 23:00 97.6 67 103/67 98 11/22/16 23:00 67 11/22/16 19:04 18 11/22/16 19:00 97.7 73 111/68 95 11/22/16 19:00 73 11/22/16 18:06 82 11/22/16 17:23 72 11/22/16 16:02 72 I/O 11/22/16 11/22/16 11/22/16 11/23/16 11/23/16 11/23/16 07:00 15:00 23:00 07:00 15:00 23:00 Intake Total 600 ml 240 ml Output Total 1150 ml 600 ml Balance -550 ml -360 ml Intake Oral 600 ml 240 ml Output Urine Total 1150 ml 600 ml # Bowel Movements 0 Physical Exam GENERAL: Well-nourished, well-developed patient. SKIN: Warm and dry. HEAD: Normocephalic. EYES: No scleral icterus. No injection or drainage. NECK: Supple, trachea midline. No JVD or lymphadenopathy. CARDIOVASCULAR: Regular rate and rhythm without murmurs, gallops, or rubs. RESPIRATORY: Breath sounds equal bilaterally. No accessory muscle use. GASTROINTESTINAL: Abdomen soft, non-tender, nondistended. EXTREMITIES: No cyanosis, or edema. NEUROLOGICAL: Awake, alert, and oriented x 3. Non-focal. Laboratory Laboratory Tests Test 11/22/16 11/22/16 11/23/16 11/23/16 17:16 21:15 05:01 11:45 Total Creatine Kinase 97 U/L Troponin I 0.18 NG/ML Activated Partial 41.5 SEC 38.5 SEC 37.6 SEC Thromboplast Time Test 11/23/16 12:50 B-Type Natriuretic Peptide 814 PG/ML Imaging Last Impressions Chest X-Ray 11/22/16 0322 Signed Impressions: Service Date/Time: November 04:24 - CONCLUSION: No acute disease. Darren Mueller MD Assessment and Plan Problem List: (1) CAD (coronary artery disease) Assessment and Plan: Continue current medical management (2) Hypertension (3) Chest pain (4) Hypertension (5) Hyperlipidemia (6) Tobacco abuse (7) COPD (chronic obstructive pulmonary disease) Problem Qualifiers (1) CAD (coronary artery disease): Yair Morgan MD Nov 23, 2016 15:47
--- NOTE | 2016-11-23 16:00 | RADRPT ---
EXAM DATE/TIME: 11/23/2016 15:28 [place] COMPARISON: CHEST PA & LAT, November 22, 2016, 4:24. INDICATIONS : Patient complains of chest pain and shortness of breath. MEDICAL HISTORY : Congestive heart failure. SURGICAL HISTORY : CABG. Coronary artery stent. ENCOUNTER: Initial ACUITY: 4 - 6 days PAIN SCORE: 4/10 LOCATION: chest FINDINGS: Lungs remain well expanded without evidence of acute air space disease or significant congestion. Heart and mediastinal structures are stable. Median sternotomy wires and prior CABG are again noted. CONCLUSION: Stable chest without evidence of significant congestion or acute air space disease. Aamir Vu MD on November 23, 2016 at 15:57 Board Certified Radiologist. This report was verified electronically.
[2016-11-23] MEDS: ALPRAZolam 1 MG TAB PO PRN (17:23)
[2016-11-23] MEDS: ONDANSETRON HCL 4 MG/2 ML VIAL IV PRN ×2 (17:23→20:24)
--- NOTE | 2016-11-23 18:49 | EKG ---
Date Performed: 11/22/2016 Time Performed: 17:26:58 PTAGE: 61 years EKG: Sinus rhythm Prolonged QT interval Septal and lateral ST-T changes are nonspecific Borderline ECG PREVIOUS TRACING : 11/22/2016 10.01 Since previous tracing, no significant change noted DOCTOR: Fidelina Turcios Interpretating Date/Time 11/23/2016 18:48:39
[2016-11-23] MEDS: SODIUM CHLORIDE 0.9% FLUSH 5 ML FLUSH FLUSH SCH (21:00)
[2016-11-24] VITALS (15 sets, daily range): BP systolic 93–124; BP diastolic 52–75; PULSE 66–75; RESP 18–19; TEMP 97.4–98.3; O2SAT 95–98
[2016-11-24] MEDS: ONDANSETRON HCL 4 MG/2 ML VIAL IV PRN ×2 (00:28→12:16)
[2016-11-24] MEDS: ALPRAZolam 1 MG TAB PO PRN ×3 (00:28→22:43)
[2016-11-24] MEDS: ISOSORBIDE MONONITRATE 30 MG TAB PO SCH (05:46)
[2016-11-24] MEDS: HEPARIN SODIUM - SQ 10,000 UNITS/ML VIAL SQ SCH ×3 (05:47→20:51)
[2016-11-24 05:48] LABS: BICARBONATE 30.7 MEQ/L (21.0-32.0)
[2016-11-24] MEDS: ATORVASTATIN 80 MG TAB PO SCH (08:24)
[2016-11-24] MEDS: ASPIRIN 81 MG CHEW TAB CHEW SCH (08:24)
[2016-11-24] MEDS: METOPROLOL TARTRATE 25 MG TAB PO SCH ×2 (08:24→20:50)
[2016-11-24] MEDS: PANTOPRAZOLE SOD 40 MG DELAYED RELEASE TAB PO SCH (08:24)
[2016-11-24] MEDS: GABAPENTIN 300 MG CAP PO SCH ×3 (08:25→17:04)
[2016-11-24] MEDS: PRASUGREL 10 MG TAB PO SCH (08:25)
[2016-11-24] MEDS: SODIUM CHLORIDE 0.9% FLUSH 5 ML FLUSH FLUSH SCH ×2 (08:25→20:51)
[2016-11-24] MEDS: REMOVE OLD PATCH TD SCH (08:26)
[2016-11-24] MEDS: NICOTINE 21 MG/24 HR PATCH TD SCH (08:26)
[2016-11-24] MEDS ORDERED: PILL SPLITTER OTHER PRN (09:30)
[2016-11-24] MEDS: LISINOPRIL 5 MG TAB PO SCH (10:11)
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
--- NOTE | 2016-11-24 10:55 | PD.CARD.PN ---
Subjective Subjective Remarks Pt still notes atypical chest pains and dyspnea at times but not currently Objective Medications Administered Medications Medications (Trade) Dose Ordered Sig/Libby Route PRN Reason Start Time Stop Time Status Last Admin Dose Admin IV Flush (NS Flush) 2 ml BID FLUSH 11/22/16 09:00 11/24/16 08:25 Aspirin (Aspirin Chew) 81 mg DAILY CHEW 11/22/16 09:00 11/24/16 08:24 Pantoprazole Sodium (Protonix) 40 mg DAILY PO 11/22/16 09:00 11/24/16 08:24 Prasugrel (Effient) 10 mg DAILY PO 11/22/16 09:00 11/24/16 08:25 Gabapentin (Neurontin) 900 mg TID PO 11/22/16 13:00 11/24/16 08:25 Oxycodone HCl (Roxicodone) 30 mg TID PO 11/22/16 13:00 11/24/16 08:24 Metoprolol Tartrate (Lopressor) 25 mg Q12HR PO 11/22/16 21:00 11/24/16 08:24 Atorvastatin Calcium (Lipitor) 80 mg DAILY PO 11/23/16 09:00 11/24/16 08:24 Isosorbide Mononitrate (Imdur) 30 mg DAILY@07 PO 11/23/16 07:00 11/24/16 05:46 Nicotine (Habitrol 21 Mg Patch.24 Hr) 1 patch DAILY TD 11/23/16 12:00 11/24/16 08:26 Heparin Sodium (Porcine) (Heparin Inj) 5,000 units Q8HR SQ 11/23/16 14:00 11/24/16 05:47 Miscellaneous Information 1 DAILY TD 11/24/16 09:00 11/24/16 08:26 Alprazolam (Xanax) 1 mg TID PRN PO ANXIETY 11/23/16 17:15 11/24/16 10:11 Ondansetron HCl (Zofran Inj) 4 mg Q6H PRN IV NAUSEA 11/23/16 17:15 11/24/16 00:28 Lisinopril (Prinivil) 2.5 mg DAILY PO 11/24/16 10:00 11/24/16 10:11 Vital Signs / I&O Vital Signs Date Time Temp Pulse Resp B/P Pulse Ox O2 Delivery O2 Flow Rate FiO2 11/24/16 10:02 71 11/24/16 09:47 75 11/24/16 09:29 18 11/24/16 08:15 67 11/24/16 08:15 98.0 67 18 101/63 98 11/24/16 03:00 71 11/24/16 03:00 98.3 71 124/75 98 11/23/16 23:49 97.9 68 98/51 96 11/23/16 23:00 68 11/23/16 19:00 69 11/23/16 19:00 97.5 69 112/70 98 11/23/16 15:00 98.4 66 18 104/68 100 11/23/16 11:00 98.0 64 18 98/68 100 I/O 11/23/16 11/23/16 11/23/16 11/24/16 11/24/16 11/24/16 07:00 15:00 23:00 07:00 15:00 23:00 Intake Total 240 ml 240 ml 480 ml Output Total 600 ml 700 ml 1400 ml Balance -360 ml -460 ml -920 ml Intake Oral 240 ml 240 ml 480 ml Output Urine Total 600 ml 700 ml 1400 ml Physical Exam GENERAL: This is a well-nourished, well-developed patient, in no apparent distress. CARDIOVASCULAR: Regular rate and rhythm without murmurs, gallops, or rubs. RESPIRATORY: decreased breath sounds GASTROINTESTINAL: Abdomen soft, non-tender, nondistended. Normal active bowel sounds MUSCULOSKELETAL: Extremities without clubbing, cyanosis, or edema. NEURO: Alert & Oriented x4 to person, place, time, situation. Moves all ext x4 Laboratory Laboratory Tests Test 11/23/16 11/23/16 11/24/16 11:45 12:50 04:18 Activated Partial 37.6 SEC Thromboplast Time B-Type Natriuretic Peptide 814 PG/ML Sodium Level 139 MEQ/L Potassium Level 4.0 MEQ/L Chloride Level 100 MEQ/L Carbon Dioxide Level 30.7 MEQ/L Anion Gap 8 MEQ/L Blood Urea Nitrogen 14 MG/DL Creatinine 0.99 MG/DL Estimat Glomerular Filtration 77 ML/MIN Rate Random Glucose 98 MG/DL Calcium Level 8.7 MG/DL Imaging Last Impressions Chest X-Ray 11/23/16 6330 Signed Impressions: Service Date/Time: Wednesday, November 23, 2016 15:28 - CONCLUSION: Stable chest without evidence of significant congestion or acute air space disease. Aamir Vu MD Assessment and Plan Problem List: (1) Chest pain Assessment and Plan: atypical, had recent cath showing patent stents (2) CAD (coronary artery disease) (3) Hypertension (4) Hypertension (5) Hyperlipidemia (6) Tobacco abuse Assessment and Plan: counseled at length, in early remission (7) COPD (chronic obstructive pulmonary disease) Assessment and Plan: Likely at least partially responsible for his dyspnea, only quit smoking two weeks ago. (8) Ischemic cardiomyopathy Assessment and Plan: LVEF 40-45% by recent echo, seems compensated, on [id number] Assessment and Plan recommend oob/PT, pt says he is going to rehab. Mario Mendez MD Nov 24, 2016 10:55
[2016-11-24] MEDS ORDERED: FUROSEMIDE 40 MG/4 ML VIAL IV PUSH ONE (11:00)
[2016-11-24] MEDS: ALUMINUM/MAGNESIUM/SIMETH 30 ML CUP PO PRN (20:50)
[2016-11-24] MEDS: traMADol HCL 50 MG TAB PO PRN (22:44)
[2016-11-25] VITALS (8 sets, daily range): BP systolic 95–108; BP diastolic 55–68; PULSE 61–71; RESP 16–21; TEMP 97.2–97.7; O2SAT 92–98
[2016-11-25] MEDS: ISOSORBIDE MONONITRATE 30 MG TAB PO SCH (05:35)
[2016-11-25] MEDS: HEPARIN SODIUM - SQ 10,000 UNITS/ML VIAL SQ SCH ×3 (05:35→21:05)
[2016-11-25] MEDS: traMADol HCL 50 MG TAB PO PRN ×2 (06:18→17:39)
[2016-11-25 07:57] LABS: HEMATOCRIT 39.2 % (39.0-51.0); MEAN CELL VOLUME 84.5 FL (80.0-100.0); MEAN CORPUSCULAR HEMOGLOBIN 27.5 PG (27.0-34.0); MEAN CORPUSCULAR HGB CONC 32.5 % (32.0-36.0); PLATELET COUNT 227 TH/MM3 (150-450); RED BLOOD COUNT 4.63 MIL/MM3 (4.50-5.90); RED CELL DISTRIBUTION WIDTH 15.2 % (11.6-17.2); REVIEW FLAG FINAL
[2016-11-25 08:14] LABS: BICARBONATE 30.2 MEQ/L (21.0-32.0)
[2016-11-25] MEDS: NICOTINE 21 MG/24 HR PATCH TD SCH (09:06)
[2016-11-25] MEDS: LISINOPRIL 5 MG TAB PO SCH (09:07)
[2016-11-25] MEDS: ASPIRIN 81 MG CHEW TAB CHEW SCH (09:07)
[2016-11-25] MEDS: ATORVASTATIN 80 MG TAB PO SCH (09:07)
[2016-11-25] MEDS: METOPROLOL TARTRATE 25 MG TAB PO SCH ×2 (09:07→21:00)
[2016-11-25] MEDS: GABAPENTIN 300 MG CAP PO SCH ×3 (09:07→17:33)
[2016-11-25] MEDS: PRASUGREL 10 MG TAB PO SCH (09:08)
[2016-11-25] MEDS: PANTOPRAZOLE SOD 40 MG DELAYED RELEASE TAB PO SCH (09:08)
[2016-11-25] MEDS: REMOVE OLD PATCH TD SCH (09:09)
[2016-11-25] MEDS: SODIUM CHLORIDE 0.9% FLUSH 5 ML FLUSH FLUSH SCH ×2 (09:09→21:05)
[2016-11-25] MEDS: ALUMINUM/MAGNESIUM/SIMETH 30 ML CUP PO PRN (13:23)
[2016-11-25] MEDS: ONDANSETRON HCL 4 MG/2 ML VIAL IV PRN (13:25)
--- NOTE | 2016-11-25 13:27 | RADRPT ---
EXAM DATE/TIME: 11/25/2016 12:49 [facility] COMPARISON: No previous studies available for comparison. INDICATIONS : Upper abdominal pain, nausea and vomiting. MEDICAL HISTORY : None. SURGICAL HISTORY : None. ENCOUNTER: Initial ACUITY: 3 days PAIN SCORE: 5/10 LOCATION: Abdomen. FINDINGS: A single erect view of the abdomen demonstrates the lower lungs to be clear. No evidence of free int raperitoneal gas. The visualized bowel loops are unremarkable. CONCLUSION: Normal examination. Calvin Delgado MD on November 25, 2016 at 13:26 Board Certified Radiologist. This report was verified electronically.
[2016-11-25] MEDS ORDERED: BISACODYL 10 MG SUPP RECTAL ONE (15:00)
[2016-11-25] MEDS ORDERED: BISACODYL 10 MG SUPP PR PRN (15:00)
--- NOTE | 2016-11-25 15:10 | HHI.PR ---
Subjective Remarks Follow up for SOB with NSTEMI, CHF. The patient is seen sitting in bed with basin on his lap, containing small amount of emesis. He reports persistent nausea and vomiting today, started 3 days ago. Hasn't had a BM in 3 days. Denies abdominal pain. No fevers or chills. Denies SOB or chest pain. Objective Vitals Vital Signs Date Time Temp Pulse Resp B/P Pulse Ox O2 Delivery O2 Flow Rate FiO2 11/25/16 12:20 97.6 69 19 95/55 92 11/25/16 08:08 97.2 70 21 108/60 95 11/25/16 04:00 97.7 70 18 101/68 95 11/25/16 00:00 97.3 61 16 100/58 95 11/24/16 20:31 68 11/24/16 20:00 97.4 70 18 115/68 96 11/24/16 18:45 97.8 66 19 102/60 95 11/24/16 18:04 67 11/24/16 17:53 18 11/24/16 17:06 72 11/24/16 16:02 67 11/24/16 15:04 69 11/24/16 15:04 98.0 69 18 93/52 96 I/O 11/24/16 11/24/16 11/24/16 11/25/16 11/25/16 11/25/16 07:00 15:00 23:00 07:00 15:00 23:00 Intake Total 480 ml 842 ml 240 ml Output Total 1400 ml 800 ml Balance -920 ml 42 ml 240 ml Intake Oral 480 ml 840 ml 240 ml IV Total 2 ml Output Urine Total 1400 ml 800 ml # Voids 1 # Bowel Movements 0 0 Result Diagram: 11/25/16 0719 11/25/16 0719 Imaging Last Impressions Chest X-Ray 11/23/16 1454 Signed Impressions: Service Date/Time: Wednesday, November 23, 2016 15:28 - CONCLUSION: Stable chest without evidence of significant congestion or acute air space disease. Aamir Vu MD Objective Remarks GENERAL: Well-nourished, well-developed male patient in [facility]. SKIN: Warm and dry. No rash. HEAD: Normocephalic. Atraumatic. EYES: Pupils equal and round. No scleral icterus. No injection or drainage. ENT: No nasal bleeding or discharge. Mucous membranes pink and moist. NECK: Supple. Trachea midline. CARDIOVASCULAR: Regular rate and rhythm. S1, S2 noted. No murmur appreciated. RESPIRATORY: No accessory muscle use. Clear to auscultation. Breath sounds equal bilaterally. GASTROINTESTINAL: Abdomen soft, non-tender, nondistended. Normoactive bowel sounds x4. MUSCULOSKELETAL: No obvious deformities. Extremities without clubbing, cyanosis , or edema. NEUROLOGICAL: Awake and alert. No obvious cranial nerve deficits. Motor grossly within normal limits. Normal speech. PSYCHIATRIC: Appropriate mood and affect; insight and judgment normal. Medications and IVs Current Medications Medications (Trade) Dose Ordered Sig/Libby Route Start Time Stop Time Status Last Admin (NS Flush) 2 ml UNSCH PRN FLUSH 11/22/16 05:00 (NS Flush) 2 ml BID FLUSH 11/22/16 09:00 11/25/16 09:09 (Narcan Inj) 0.4 mg UNSCH PRN IV 11/22/16 05:00 (Nitrostat Sl) 0.4 mg Q5M PRN SL 11/22/16 05:15 (Aspirin Chew) 81 mg DAILY CHEW 11/22/16 09:00 11/25/16 09:07 (Flexeril) 10 mg TID PRN PO 11/22/16 06:30 (Protonix) 40 mg DAILY PO 11/22/16 09:00 11/25/16 09:08 (Effient) 10 mg DAILY PO 11/22/16 09:00 11/25/16 09:08 (Proair Hfa Inh) 2 puff Q4H PRN INH 11/22/16 11:30 (Neurontin) 900 mg TID PO 11/22/16 13:00 11/25/16 13:23 (Roxicodone) 30 mg TID PO 11/22/16 13:00 11/25/16 13:41 (Lopressor) 25 mg Q12HR PO 11/22/16 21:00 11/25/16 09:07 (Lipitor) 80 mg DAILY PO 11/23/16 09:00 11/25/16 09:07 (Imdur) 30 mg DAILY@07 PO 11/23/16 07:00 11/25/16 05:35 (Habitrol 21 Mg Patch.24 Hr) 1 patch DAILY TD 11/23/16 12:00 11/25/16 09:06 (Heparin Inj) 5,000 units Q8HR SQ 11/23/16 14:00 11/25/16 13:23 (Ultram) 50 mg Q8H PRN PO 11/23/16 11:45 11/25/16 06:18 Miscellaneous Information 1 DAILY TD 11/24/16 09:00 11/25/16 09:09 (Xanax) 1 mg TID PRN PO 11/23/16 17:15 11/24/16 22:43 (Zofran Inj) 4 mg Q6H PRN IV 11/23/16 17:15 11/25/16 13:25 (Prinivil) 2.5 mg DAILY PO 11/24/16 10:00 11/25/16 09:07 (Pill Splitter) 1 ea UNSCH PRN OTHER 11/24/16 09:30 (Mag-Al Plus Susp Liq) 30 ml QID PRN PO 11/24/16 20:45 11/25/16 13:23 A/P Assessment and Plan 61-year-old male with previous cardiac history including CABG and stenting, recently admitted in the hospital for unstable angina, status post stenting with a bare metal stent of the LAD and PTCA of proximal LAD with subacute thrombosis. Non-ST elevated myocardial infarction: EKG personally reviewed showed T-wave flattening, no ST elevation. S/p bare-metal stent placement of the LAD and angioplasty of the LAD on 11/13/16. Troponin maxed at 0.29. Cardiology consulted, optimize medical management for now. Stop heparin. Continue Effient, aspirin, metoprolol, switch statin to atorvastatin, started long-acting Imdur, possibly start YOBANY inhibitors if blood pressure allows however still hypotensive at times. Systolic exacerbation of CHF: review of records revealed EF 45-50% from an echocardiogram 11/13/16. BNP elevated, CXR personally reviewed shows bilateral pulmonary edema, restarted Lasix daily, monitor urine output, recheck BMP tomorrow. Low-dose lisinopril. -1.4 L. Rash: monitor for now. Chronic neck pain: from a fall many years back, continue Flexeril, oxycodone and gabapentin. Tramadol as needed. Nausea/Vomiting/Constipation: check abdominal xray. Start on Melissa-colace bid, MOM prn, Dulcolax prn. DVT prophylaxis: heparin sq Ambulate. Will need rehabilitation, consult case management. Patient lost his house. Written by Mellissa Asif, acting as scribe for Dr. Hurst on 11/25/16 at 12:10. Attending Statement The documentation accurately reflects the work performed [id number] by md, Dr. Hurst on 11/25/16 at 12:10. Mellissa Asif PA-C Nov 25, 2016 15:10 Oscar Hurst MD Nov 26, 2016 21:20
[2016-11-25] MEDS ORDERED: MAGNESIUM HYDROXIDE SUSP 30 ML CUP PO ONE (16:00)
[2016-11-25] MEDS: ALPRAZolam 1 MG TAB PO PRN ×2 (17:38→23:28)
[2016-11-25] MEDS: DOCUSATE SODIUM 50 MG/SENNA 8.6 MG TAB PO SCH (21:00)
[2016-11-26] VITALS: BP 98/58; PULSE 70; RESP 18; TEMP 97.3; O2SAT 95
[2016-11-26] MEDS: traMADol HCL 50 MG TAB PO PRN ×2 (01:28→20:49)
[2016-11-26 04:00] VITALS: BP 111/62; PULSE 77; RESP 16; TEMP 97.9; O2SAT 95
[2016-11-26] MEDS: HEPARIN SODIUM - SQ 10,000 UNITS/ML VIAL SQ SCH ×2 (05:32→11:59)
[2016-11-26] MEDS: ISOSORBIDE MONONITRATE 30 MG TAB PO SCH (05:32)
[2016-11-26] MEDS: ONDANSETRON HCL 4 MG/2 ML VIAL IV PRN (06:36)
[2016-11-26 08:00] VITALS: BP 114/67; PULSE 77; PULSE 87; RESP 18; TEMP 97.9; O2SAT 95
[2016-11-26] MEDS: DOCUSATE SODIUM 50 MG/SENNA 8.6 MG TAB PO SCH (09:00)
[2016-11-26] MEDS: PRASUGREL 10 MG TAB PO SCH (09:15)
[2016-11-26] MEDS: METOPROLOL TARTRATE 25 MG TAB PO SCH ×2 (09:15→20:47)
[2016-11-26] MEDS: GABAPENTIN 300 MG CAP PO SCH ×3 (09:15→17:07)
[2016-11-26] MEDS: LISINOPRIL 5 MG TAB PO SCH (09:15)
[2016-11-26] MEDS: ATORVASTATIN 80 MG TAB PO SCH (09:15)
[2016-11-26] MEDS: PANTOPRAZOLE SOD 40 MG DELAYED RELEASE TAB PO SCH (09:15)
[2016-11-26] MEDS: SODIUM CHLORIDE 0.9% FLUSH 5 ML FLUSH FLUSH SCH ×2 (09:16→22:12)
[2016-11-26] MEDS: ASPIRIN 81 MG CHEW TAB CHEW SCH (09:16)
[2016-11-26] MEDS: REMOVE OLD PATCH TD SCH (09:16)
[2016-11-26] MEDS: NICOTINE 21 MG/24 HR PATCH TD SCH (09:16)
[2016-11-26] MEDS: FUROSEMIDE 20 MG TAB PO SCH (09:16)
[2016-11-26] MEDS: ALPRAZolam 1 MG TAB PO PRN ×2 (10:23→20:50)
[2016-11-26 12:00] VITALS: BP 95/53; PULSE 66; RESP 20; TEMP 98.3; O2SAT 94
[2016-11-26 16:00] VITALS: BP 95/54; PULSE 67; RESP 18; TEMP 97.6; O2SAT 93
[2016-11-26] MEDS ORDERED: DIATRIZOATE MEGLUM/DIATRIZOATE SOD 9 ML CUP PO ONE (19:15)
[2016-11-26 20:00] VITALS: BP 103/71; PULSE 68; RESP 18; TEMP 97.3; O2SAT 95
[2016-11-26 20:06] LABS: ANION GAP 7 MEQ/L (5-15); AST (GOT) 10 U/L (15-37); BICARBONATE 30.7 MEQ/L (21.0-32.0); BLOOD UREA NITROGEN 30 MG/DL (7-18); CHLORIDE 97 MEQ/L (98-107); GLOMERULAR FILTRATION RATE 42 ML/MIN (>89); POTASSIUM 4.7 MEQ/L (3.5-5.1); SODIUM (NA) 135 MEQ/L (136-145)
[2016-11-26 20:10] LABS: ALKALINE PHOSPHATASE 72 U/L (45-117); ALT (GPT) 14 U/L (12-78); TOTAL BILIRUBIN ADULT 0.5 MG/DL (0.2-1.0)
[2016-11-26 20:15] LABS: AUTOMATED NEUTROPHIL # 4.6 TH/MM3 (1.8-7.7); BASOPHIL % 0.7 % (0.0-2.0); EOSINOPHIL # 0.3 TH/MM3 (0-0.4); EOSINOPHIL % 3.5 % (0.0-4.0); HEMATOCRIT 35.8 % (39.0-51.0); HEMO FLAGS DIFF FINAL; LYMPH % 23.1 % (9.0-44.0); LYMPHOCYTE # 1.7 TH/MM3 (1.0-4.8); MEAN CELL VOLUME 85.2 FL (80.0-100.0); MEAN CORPUSCULAR HEMOGLOBIN 27.7 PG (27.0-34.0); MEAN CORPUSCULAR HGB CONC 32.6 % (32.0-36.0); MONO % 8.3 % (0.0-8.0); NEUT % 64.4 % (16.0-70.0); PLATELET COUNT 220 TH/MM3 (150-450); RED CELL DISTRIBUTION WIDTH 15.1 % (11.6-17.2); WHITE BLOOD COUNT 7.2 TH/MM3 (4.0-11.0)
[2016-11-26] MEDS ORDERED: SODIUM CHLORID 0.9% 500 ML INJ 500 ML IV ONE (21:30)
--- NOTE | 2016-11-26 21:33 | HHI.PR ---
Subjective Remarks patient seen today around 4:30 PM. Patient reports that nausea has improved, with out vomiting recently. He denies any chest pain or shortness of breath. However, he reports multiple dominance, with red blood in toilet bowl several times. He also reports a roughly 12 hour history of dull crampy left lower quadrant pain. Objective Vital Signs Date Time Temp Pulse Resp B/P Pulse Ox O2 Delivery O2 Flow Rate FiO2 11/26/16 16:00 97.6 67 18 95/54 93 11/26/16 12:00 98.3 66 20 95/53 94 11/26/16 08:00 87 11/26/16 08:00 97.9 77 18 114/67 95 11/26/16 04:00 97.9 77 16 111/62 95 11/26/16 00:00 97.3 70 18 98/58 95 I/O 11/25/16 11/25/16 11/25/16 11/26/16 11/26/16 11/26/16 07:00 15:00 23:00 07:00 15:00 23:00 Intake Total 240 ml 940 ml 482 ml 240 ml 720 ml Balance 240 ml 940 ml 482 ml 240 ml 720 ml Intake Oral 240 ml 940 ml 480 ml 240 ml 720 ml IV Total 2 ml # Voids 1 1 4 1 3 # Bowel Movements 0 0 1 0 0 Result Diagram: 11/26/16190611/26/16 190 Imaging Last Impressions Abdomen X-Ray 11/25/16 0000 Signed Impressions: Service Date/Time: Friday, November 25, 2016 12:49 - CONCLUSION: Normal examination. Calvin Delgado MD Chest X-Ray 11/23/16 1454 Signed Impressions: Service Date/Time: Wednesday, November 23, 2016 15:28 - CONCLUSION: Stable chest without evidence of significant congestion or acute air space disease. Aamir Vu MD Objective Remarks GENERAL: sitting up in bed. Appears uncomfortable. Patient is alert and oriented 3. SKIN: Warm and dry. HEAD: Normocephalic. EYES: No scleral icterus. No injection or drainage. NECK: Supple, trachea midline. No JVD. CARDIOVASCULAR: Regular rate and rhythm without murmurs, gallops, or rubs. RESPIRATORY: Breath sounds equal bilaterally. No accessory muscle use. GASTROINTESTINAL: Abdomen soft. positive left lower quadrant tenderness to palpation. No rebound or guarding. MUSCULOSKELETAL: No cyanosis, or edema. BACK: Nontender without obvious deformity. No CVA tenderness. A/P Assessment and Plan 61-year-old male with previous cardiac history including CABG and stenting, recently admitted in the hospital for unstable angina, status post stenting with a bare metal stent of the LAD and PTCA of proximal LAD with subacute thrombosis. //Non-ST elevated myocardial infarction: EKG personally reviewed showed T-wave flattening, no ST elevation. S/p bare-metal stent placement of the LAD and angioplasty of the LAD on 11/13/16. Troponin maxed at 0.29. Cardiology consulted, optimize medical management for now. Stop heparin. Continue Effient, aspirin, metoprolol, switch statin to atorvastatin, started long-acting Imdur, possibly start YOBANY inhibitors if blood pressure allows however still hypotensive at times. //Systolic exacerbation of CHF: -review of records revealed EF 45-50% from an echocardiogram 11/13/16. -Admit CXR bilateral pulmonary edema, admit BNP 800 -11/26 appears dehydrated. Hold Lasix, hold low-dose lisinopril //Acute kidney injury. -11/26 Likely secondary to nausea and vomiting, dehydration. 500mL bolus. -Hold lisinopril and Lasix. -Follow renal function. -Adjust gabapentin dose. //Rash: monitor for now. //Chronic neck pain: from a fall many years back, continue Flexeril, oxycodone and gabapentin. Tramadol as needed. //Nausea/Vomiting/Constipation: //Hematochezia started 11/25 overnight //Patient reports multiple bowel movements, now loose, however only one recorded. -11/25 negative abdominal xray. -Patient with new left lower quadrant pain on 11/26. CT abdomen ordered. 11/26 Stat CBC, CMP. Every 6 hour hemoglobin. GI consultation. Hemoccult ordered. Stop subcutaneous heparin. DVT prophylaxis: heparin sq Ambulate. Discharge Planning Will need rehabilitation, consult case management. Patient lost his house. Oscar Hurst MD Nov 26, 2016 21:33
[2016-11-26] MEDS ORDERED: IOHEXOL 350 MG/ML 10 ML VIAL (for RAD DIAG) IV ONE (21:42)
--- NOTE | 2016-11-26 21:56 | RADRPT ---
EXAM DATE/TIME: 11/26/2016 21:39 [facility] COMPARISON: CT ABDOMEN & PELVIS W CONTRAST, November 06, 2016, 20:11. INDICATIONS : Abdomen pain; nausea, vomiting. IV CONTRAST: 100 cc Omnipaque 350 (iohexol) IV ORAL CONTRAST: Prescribed oral contrast ingested. RADIATION DOSE: 9.96 CTDIvol (mGy) MEDICAL HISTORY : Cardiovascular disease. Chronic obstructive pulmonary disease. Hernia, hiatal. SURGICAL HISTORY : None. ENCOUNTER: Initial ACUITY: 1 day PAIN SCALE: 5/10 LOCATION: Bilateral abdomen. TECHNIQUE: Volumetric scanning of the abdomen and pelvis was performed. Using automated exposure control and ad justment of the mA and/or kV according to patient size, radiation dose was kept as low as reasonably achievable to obtain optimal diagnostic quality images. FINDINGS: LOWER LUNGS: The visualized lower lungs are clear. LIVER: Homogeneous density without lesion. There is no dilation of the biliary tree. No calcified gallston es. SPLEEN: Normal size without lesion. PANCREAS: Within normal limits. KIDNEYS: Normal in size and shape. There is no mass, stone or hydronephrosis. ADRENAL GLANDS: Within normal limits. VASCULAR: There is no aortic aneurysm. BOWEL/MESENTERY: Moderate stool throughout the colon. Suggestion for some wall thickening of the rectum, for example s eries 2 image 74. Nonobstructive pattern. No free fluid or free air. There is nonspecific gastric dis tention, full of food. ABDOMINAL WALL: Within normal limits. RETROPERITONEUM: There is no lymphadenopathy. BLADDER: No wall thickening or mass. REPRODUCTIVE: Within normal limits. INGUINAL: There is no lymphadenopathy or hernia. MUSCULOSKELETAL: No acute bony abnormality demonstrated. Degenerative changes of the spine and old limbus deformity of L1 again noted. CONCLUSION: 1. Mild proctitis/distal colitis in the proper clinical setting. Moderate stool throughout the colon. Nonobstructive pattern. 2. Food filled stomach with mild distention. Cr Rodriguez MD on November 26, 2016 at 21:50 Board Certified Radiologist. This report was verified electronically.
[2016-11-27] VITALS (7 sets, daily range): BP systolic 99–122; BP diastolic 53–74; PULSE 60–86; RESP 18–20; TEMP 97.3–97.8; O2SAT 93–97
[2016-11-27 01:03] LABS: HEMATOCRIT 36.3 % (39.0-51.0); REVIEW FLAG FINAL
[2016-11-27] MEDS: ALPRAZolam 1 MG TAB PO PRN ×3 (05:10→22:36)
[2016-11-27] MEDS: traMADol HCL 50 MG TAB PO PRN (05:10)
[2016-11-27] MEDS: ISOSORBIDE MONONITRATE 30 MG TAB PO SCH (06:36)
[2016-11-27 06:50] LABS: HEMATOCRIT 35.3 % (39.0-51.0); REVIEW FLAG FINAL
[2016-11-27 07:18] LABS: BICARBONATE 34.7 MEQ/L (21.0-32.0); POTASSIUM 4.8 MEQ/L (3.5-5.1)
[2016-11-27] MEDS: METOPROLOL TARTRATE 25 MG TAB PO SCH ×2 (08:52→20:43)
[2016-11-27] MEDS: NICOTINE 21 MG/24 HR PATCH TD SCH (08:53)
[2016-11-27] MEDS: ATORVASTATIN 80 MG TAB PO SCH (08:53)
[2016-11-27] MEDS: PANTOPRAZOLE SOD 40 MG DELAYED RELEASE TAB PO SCH (08:53)
[2016-11-27] MEDS: REMOVE OLD PATCH TD SCH (08:53)
[2016-11-27] MEDS: ASPIRIN 81 MG CHEW TAB CHEW SCH (08:53)
[2016-11-27] MEDS: PRASUGREL 10 MG TAB PO SCH (08:53)
[2016-11-27] MEDS: SODIUM CHLORIDE 0.9% FLUSH 5 ML FLUSH FLUSH SCH ×2 (08:54→20:42)
[2016-11-27] MEDS ORDERED: GABAPENTIN 400 MG CAP PO SCH (09:00)
--- NOTE | 2016-11-27 09:56 | PD.CONS ---
HPI History of Present Illness This is a 61 year old male with past medical history of CHF, COPD, CABG X 2, recent stent on 11/13/16 ( on effient), kidney stones who is here for evaluation of chest pain. He was seen by cardiology who recommended medical management for now. GI services have been consulted for LLQ and lower GI bleed. Patient reports bright red bleed per rectum with every bowel movement associated with diarrhea for the past 4 days. No previous history of this. He reports vomiting for a couple of times. Reports LLQ pain, nausea, severe GERD, and dysphagia. Reports the pain has been going on for few months, this is associated with bloating and swelling, worse with eating comes and goes. CT showed Mild proctitis/distal colitis in the proper clinical setting. Moderate stool throughout the colon. Nonobstructive pattern. Food filled stomach with mild distention. No previous EGD/colonoscopy He was supposed to have a colonoscopy at [facility], but the prep was poor and he never had it done, not able to recall the physician name. He is still with chest pain. The dysphagia on going for months, states the food gets stuck at times to where he has to fransisco it with water. He denies hematemesis, or melena. Hgb is 11.7. (Evelyne Romano) PFSH Past Medical History Chronic pain from multiple disc injuries in his neck and back Hyperlipidemia COPD CHF Neuropathy CAD kidney stones Past Surgical History CABG 2 in 2011 Stent placement 2 - 6 months ago and 2 weeks ago (Evelyne Romano) Coded Allergies: Penicillin (Verified Allergy, Unknown, Hives, 11/22/16) Medications Current Medications Medications (Trade) Dose Ordered Sig/Libby Route Start Time Stop Time Status Last Admin (NS Flush) 2 ml UNSCH PRN FLUSH 11/22/16 05:00 (NS Flush) 2 ml BID FLUSH 11/22/16 09:00 11/27/16 08:54 (Narcan Inj) 0.4 mg UNSCH PRN IV 11/22/16 05:00 (Nitrostat Sl) 0.4 mg Q5M PRN SL 11/22/16 05:15 (Aspirin Chew) 81 mg DAILY CHEW 11/22/16 09:00 11/27/16 08:53 (Flexeril) 10 mg TID PRN PO 11/22/16 06:30 (Protonix) 40 mg DAILY PO 11/22/16 09:00 11/27/16 08:53 (Effient) 10 mg DAILY PO 11/22/16 09:00 11/27/16 08:53 (Proair Hfa Inh) 2 puff Q4H PRN INH 11/22/16 11:30 (Roxicodone) 30 mg TID PO 11/22/16 13:00 11/27/16 08:53 (Lopressor) 25 mg Q12HR PO 11/22/16 21:00 11/26/16 20:47 (Lipitor) 80 mg DAILY PO 11/23/16 09:00 11/27/16 08:53 (Imdur) 30 mg DAILY@07 PO 11/23/16 07:00 11/27/16 06:36 (Habitrol 21 Mg Patch.24 Hr) 1 patch DAILY TD 11/23/16 12:00 11/27/16 08:53 (Ultram) 50 mg Q8H PRN PO 11/23/16 11:45 11/27/16 05:10 Miscellaneous Information 1 DAILY TD 11/24/16 09:00 11/27/16 08:53 (Xanax) 1 mg TID PRN PO 11/23/16 17:15 11/27/16 05:10 (Zofran Inj) 4 mg Q6H PRN IV 11/23/16 17:15 11/26/16 06:36 (Prinivil) 2.5 mg DAILY PO 11/24/16 10:00 Hold 11/26/16 09:15 (Pill Splitter) 1 ea UNSCH PRN OTHER 11/24/16 09:30 (Mag-Al Plus Susp Liq) 30 ml QID PRN PO 11/24/16 20:45 11/25/16 13:23 (Dulcolax Supp) 10 mg DAILY PRN NE 11/25/16 15:00 (Milk Of Magnesia Liq) 30 ml Q6H PRN PO 11/25/16 15:00 (Lasix) 20 mg DAILY PO 11/26/16 09:00 Hold 11/26/16 09:16 (Neurontin) 400 mg BID PO 11/27/16 09:00 11/27/16 08:53 Family History Father of an [place] at age 42, mother of an [place] at age 92. no family history of IBD or colon cancer Social History Former smoker, Denies alcohol use. Uses marijuana. (Evelyne Romano) Review of Systems Constitutional: DENIES: Fever, Chills Endocrine: DENIES: Polyuria Eyes: DENIES: Double Vision Respiratory: DENIES: Shortness of breath Cardiovascular: DENIES: Lower Extremity Edema Gastrointestinal: COMPLAINS OF: Abdominal pain, Bloody stools, Diarrhea, Nausea , Vomiting, Difficulty Swallowing, Odynophagia, Swelling of Abdomen, Heartburn, DENIES: Black stools, Constipation, Anorexia, Hematemesis Genitourinary: DENIES: Hematuria Musculoskeletal: DENIES: Neck pain Integumentary: DENIES: Jaundice Hematologic/lymphatic: DENIES: Bruising Immunologic/allergic: DENIES: Eczema Neurologic: DENIES: Abnormal gait Psychiatric: DENIES: Anxiety (Evelyne Romano) GI Exam Vitals I&O Vital Signs Date Time Temp Pulse Resp B/P Pulse Ox O2 Delivery O2 Flow Rate FiO2 11/27/16 08:00 97.3 68 20 99/55 94 11/27/16 04:00 97.3 75 18 122/69 94 11/27/16 00:00 97.6 60 18 106/60 93 11/26/16 20:00 97.3 68 18 103/71 95 11/26/16 16:00 97.6 67 18 95/54 93 11/26/16 12:00 98.3 66 20 95/53 94 I/O 11/26/16 11/26/16 11/26/16 11/27/16 11/27/16 11/27/16 07:00 15:00 23:00 07:00 15:00 23:00 Intake Total 240 ml 720 ml 240 ml 860 ml Output Total 500 ml Balance 240 ml 720 ml -260 ml 860 ml Intake Oral 240 ml 720 ml 240 ml 360 ml IV Total 500 ml Output Urine Total 500 ml # Voids 1 3 3 # Bowel Movements 0 0 2 1 Imaging Last Impressions Abdomen/Pelvis CT 11/26/16 0000 Signed Impressions: Service Date/Time: Saturday, November 26, 2016 21:39 - CONCLUSION: 1. Mild proctitis/distal colitis in the proper clinical setting. Moderate stool throughout the colon. Nonobstructive pattern. 2. Food filled stomach with mild distention. Cr Rodriguez MD Abdomen X-Ray 11/25/16 0000 Signed Impressions: Service Date/Time: Friday, November 25, 2016 12:49 - CONCLUSION: Normal examination. Calvin Delgado MD Chest X-Ray 11/23/16 1454 Signed Impressions: Service Date/Time: Wednesday, November 23, 2016 15:28 - CONCLUSION: Stable chest without evidence of significant congestion or acute air space disease. Aamir Vu MD Laboratory Test 11/26/16 11/27/16 11/27/16 19:07 00:30 06:20 White Blood Count 7.2 TH/MM3 Red Blood Count 4.20 MIL/MM3 Hemoglobin 11.7 GM/DL 12.1 GM/DL 11.7 GM/DL Hematocrit 35.8 % 36.3 % 35.3 % Mean Corpuscular Volume 85.2 FL Mean Corpuscular Hemoglobin 27.7 PG Mean Corpuscular Hemoglobin 32.6 % Concent Red Cell Distribution Width 15.1 % Platelet Count 220 TH/MM3 Mean Platelet Volume 9.4 FL Neutrophils (%) (Auto) 64.4 % Lymphocytes (%) (Auto) 23.1 % Monocytes (%) (Auto) 8.3 % Eosinophils (%) (Auto) 3.5 % Basophils (%) (Auto) 0.7 % Neutrophils # (Auto) 4.6 TH/MM3 Lymphocytes # (Auto) 1.7 TH/MM3 Monocytes # (Auto) 0.6 TH/MM3 Eosinophils # (Auto) 0.3 TH/MM3 Basophils # (Auto) 0.0 TH/MM3 CBC Comment DIFF FINAL Differential Comment Sodium Level 135 MEQ/L 136 MEQ/L Potassium Level 4.7 MEQ/L 4.8 MEQ/L Chloride Level 97 MEQ/L 97 MEQ/L Carbon Dioxide Level 30.7 MEQ/L 34.7 MEQ/L Anion Gap 7 MEQ/L 4 MEQ/L Blood Urea Nitrogen 30 MG/DL 29 MG/DL Creatinine 1.66 MG/DL 1.48 MG/DL Estimat Glomerular Filtration 42 ML/MIN 48 ML/MIN Rate Random Glucose 94 MG/DL 102 MG/DL Calcium Level 8.8 MG/DL 8.8 MG/DL Total Bilirubin 0.5 MG/DL Aspartate Amino Transf 10 U/L (AST/SGOT) Alanine Aminotransferase 14 U/L (ALT/SGPT) Alkaline Phosphatase 72 U/L B-Type Natriuretic Peptide 244 PG/ML Total Protein 7.1 GM/DL Albumin 3.7 GM/DL Physical Examination HEENT: normocephalic; atraumatic; no jaundice. Throat is clear. NECK: Neck is supple, no JVD, no lymphadenopathy. CHEST: Chest is clear to auscultation and percussion. CARDIAC: Regular rate and rhythm with no murmur gallop or rubs. ABDOMEN: Soft, distended, LLQ tenderness; no hepatosplenomegaly; bowel sounds are present in all four quadrants. EXTREMITIES: No clubbing, cyanosis, or edema. SKIN: Normal; no rash; no jaundice. FIRMWARE ARCHITECT: No focal deficits; alert and oriented times three. (Evelyne Romano) Assessment and Plan Plan - LLQ pain for few months, LGIB and diarrhea X 4 days- CT showed Mild proctitis/distal colitis in the proper clinical setting. Moderate stool throughout the colon. Nonobstructive pattern. Food filled stomach with mild distention. No previous EGD/colonoscopy He was supposed to have a colonoscopy at [facility], but the prep was poor and he never had it done, not able to recall the physician name. He is still with chest pain. He denies hematemesis , or melena. hgb 11.7, ppi - abd distension and swelling for few months worse with eating- Ct as above - Proctitis/distal colitis- Ct as above, no previous history of this, will order stool studies, Flagyl - GERD/dysphagia/atypical chest pain- this is on going for few months. states the food gets stuck at times to where he has to fransisco it with water. PPI, no previous EGD, no alcohol intake. - CAD, CABG X 2, Stents on effient,LVEF 40-45% by recent echo, cardiology on the case Plan: - JULIANNA - Upper GI/SBFT - Stool studies - Will need EGD/colonoscopy evaluation, however, Patient on effient for recent stents, will need cardiology clearance to hold effient for few days - Monitor hh - Notify GI for active bleed - Cont. PPI - Flagyl - Patient seen and examined by Dr. Bunch and myself and this note is written on his behalf. (Evelyne Romano) Physician Comments Seen and examined with Ms. Juan Antonio DESAI, doing well. SBFT today. Colonoscopy when cleared by cardiology. Will follow. Thank you (Falguni Bunch MD) Evelyne Romano Nov 27, 2016 09:56 Falguni Bunch MD Nov 27, 2016 15:10
[2016-11-27] MEDS ORDERED: MAGNESIUM CITRATE SOLN 300 ML BTL PO ONE ×2 (12:00→18:00)
[2016-11-27] MEDS: metroNIDAZOLE 500 MG TAB PO SCH ×2 (13:16→20:43)
[2016-11-27 15:09] LABS: C. DIFF EPI 027 PRESUMPTIVE NEGATIVE (NEGATIVE); C. DIFF TOXIN PCR NEGATIVE (NEGATIVE)
--- NOTE | 2016-11-27 17:09 | RADRPT ---
EXAM DATE/TIME: 11/27/2016 16:43 [facility] COMPARISON: CHEST SINGLE AP, November 14, 2016, 1:17. INDICATIONS : Chest pain, shortness of breath, cough, congestion. MEDICAL HISTORY : Hypertension. Congestive heart failure. Chronic obstructive pulmonary disease. Smoker. SURGICAL HISTORY : CABG. ENCOUNTER: Subsequent ACUITY: 2 weeks PAIN SCORE: 5/10 LOCATION: Bilateral chest FINDINGS: A single view of the chest demonstrates the lungs to be symmetrically aerated without evidence of mas s, infiltrate or effusion. The cardiomediastinal contours are unremarkable. The patient is status p ost sternotomy. Osseous structures are intact. CONCLUSION: No acute disease. Cr Tay MD on November 27, 2016 at 17:06 Board Certified Radiologist. This report was verified electronically.
[2016-11-27] MEDS: GABAPENTIN 400 MG CAP PO SCH (17:44)
[2016-11-27] MEDS: BISACODYL EC 5 MG TABEC PO SCH ×2 (17:44→20:50)
[2016-11-27] MEDS: CYCLOBENZAPRINE HCL 10 MG TAB PO PRN (20:50)
[2016-11-28] VITALS: BP 120/62; PULSE 68; RESP 18; TEMP 97.6; O2SAT 93
--- NOTE | 2016-11-28 00:51 | HHI.PR ---
Subjective Remarks late entry. Date of service 11/27/16. Patient seen around 4 PM. He reports that nausea has improved, however reports still with poor appetite. He denies any chest pain or shortness of breath. Still with some red blood in toilet bowl. He says that crampy abdominal pain has improved however.patient does report a cough with brown sputum over the past several days. he requests that oxycodone which she takes for chronic pain being increased to 4 times daily, as he does take some at night. Discussed with him that we will increase his pain.chest x-ray ordered for cough and negative. Saturating well on room air. Breathing comfortably. Objective Vital Signs Date Time Temp Pulse Resp B/P Pulse Ox O2 Delivery O2 Flow Rate FiO2 11/27/16 20:00 97.8 86 18 119/74 97 11/27/16 16:00 97.6 78 20 120/59 94 11/27/16 12:00 97.8 73 18 100/53 94 11/27/16 08:00 97.3 68 20 99/55 94 11/27/16 08:00 66 11/27/16 04:00 97.3 75 18 122/69 94 I/O 11/27/16 11/27/16 11/27/16 11/28/16 11/28/16 11/28/16 07:00 15:00 23:00 07:00 15:00 23:00 Intake Total 860 ml 720 ml Balance 860 ml 720 ml Intake Oral 360 ml 720 ml IV Total 500 ml # Voids 3 3 # Bowel Movements 1 2 Result Diagram: 11/27/1620 11/27/16 0620 Objective Remarks GENERAL: sitting up in bed. Appears uncomfortable. Patient is alert and oriented 3. SKIN: Warm and dry. HEAD: Normocephalic. EYES: No scleral icterus. No injection or drainage. NECK: Supple, trachea midline. No JVD. CARDIOVASCULAR: Regular rate and rhythm without murmurs, gallops, or rubs. RESPIRATORY: Breath sounds equal bilaterally. No accessory muscle use. GASTROINTESTINAL: Abdomen soft. abdomen nontender. No rebound or guarding. MUSCULOSKELETAL: No cyanosis, or edema. BACK: Nontender without obvious deformity. No CVA tenderness. A/P Assessment and Plan 61-year-old male with previous cardiac history including CABG and stenting, recently admitted in the hospital for unstable angina, status post stenting with a bare metal stent of the LAD and PTCA of proximal LAD with subacute thrombosis. //Non-ST elevated myocardial infarction: EKG personally reviewed showed T-wave flattening, no ST elevation. S/p bare-metal stent placement of the LAD and angioplasty of the LAD on 11/13/16. Troponin maxed at 0.29. Cardiology consulted, optimize medical management for now. Stop heparin. Continue Effient, aspirin, metoprolol, switch statin to atorvastatin, started long-acting Imdur, possibly start YOBANY inhibitors if blood pressure allows however still hypotensive at times. //Systolic exacerbation of CHF: -review of records revealed EF 45-50% from an echocardiogram 11/13/16. -Admit CXR bilateral pulmonary edema, admit BNP 800 -11/26 appears dehydrated. Hold Lasix, hold low-dose lisinopril -11/27. Vital signs stable. Continue holding Lasix and lisinopril //Acute kidney injury. -With creatinine 1.6 on 11/26 Likely secondary to nausea and vomiting, dehydration. 500mL bolus. -Hold lisinopril and Lasix. -Follow renal function. -Adjust gabapentin dose as necessary. -11/27. Creatinine improved to 1.48 with holding Lasix and lisinopril. //Rash: monitor for now. //Chronic neck pain: from a fall many years back, continue Flexeril, oxycodone and gabapentin. Tramadol as needed. //Nausea/Vomiting/Constipation: //Hematochezia started 11/25 overnight //Patient reports multiple bowel movements, now loose, however only one recorded. -11/25 negative abdominal xray. -Patient with new left lower quadrant pain on 11/26. CT abdomen ordered. 11/26 Stat CBC, CMP. Every 6 hour hemoglobin. GI consultation. Hemoccult ordered. Stop subcutaneous heparin. 11/27. GI assistance appreciated. Hemoglobin relatively stable. Hematochezia continues however DVT prophylaxis: heparin sq Ambulate. Discharge Planning Will need rehabilitation, consult case management. Patient lost his house. Oscar Hurst MD Nov 28, 2016 00:51
[2016-11-28 04:00] VITALS: BP 125/65; PULSE 69; RESP 18; TEMP 97.5; O2SAT 95
[2016-11-28 08:00] VITALS: BP 104/58; PULSE 68; RESP 20; TEMP 98; O2SAT 94
[2016-11-28] MEDS: SODIUM CHLORIDE 0.9% FLUSH 5 ML FLUSH FLUSH SCH ×2 (09:00→21:43)
[2016-11-28] MEDS: REMOVE OLD PATCH TD SCH (09:00)
[2016-11-28 09:19] LABS: AUTOMATED NEUTROPHIL # 5.5 TH/MM3 (1.8-7.7); BASOPHIL # 0.1 TH/MM3 (0-0.2); BASOPHIL % 0.9 % (0.0-2.0); EOSINOPHIL # 0.2 TH/MM3 (0-0.4); EOSINOPHIL % 2.7 % (0.0-4.0); HEMATOCRIT 37.4 % (39.0-51.0); HEMO FLAGS DIFF FINAL; LYMPH % 17.1 % (9.0-44.0); LYMPHOCYTE # 1.4 TH/MM3 (1.0-4.8); MEAN CELL VOLUME 84.8 FL (80.0-100.0); MEAN CORPUSCULAR HEMOGLOBIN 27.8 PG (27.0-34.0); MEAN CORPUSCULAR HGB CONC 32.8 % (32.0-36.0); MONO % 11.9 % (0.0-8.0); NEUT % 67.4 % (16.0-70.0); PLATELET COUNT 195 TH/MM3 (150-450); RED BLOOD COUNT 4.41 MIL/MM3 (4.50-5.90); RED CELL DISTRIBUTION WIDTH 15.3 % (11.6-17.2); WHITE BLOOD COUNT 8.2 TH/MM3 (4.0-11.0)
[2016-11-28] MEDS: metroNIDAZOLE 500 MG TAB PO SCH ×3 (11:34→21:40)
[2016-11-28] MEDS: CYCLOBENZAPRINE HCL 10 MG TAB PO PRN (11:34)
[2016-11-28] MEDS: PANTOPRAZOLE SOD 40 MG DELAYED RELEASE TAB PO SCH (11:34)
[2016-11-28] MEDS: METOPROLOL TARTRATE 25 MG TAB PO SCH ×2 (11:34→21:00)
[2016-11-28] MEDS: PRASUGREL 10 MG TAB PO SCH (11:34)
[2016-11-28] MEDS: ISOSORBIDE MONONITRATE 30 MG TAB PO SCH (11:34)
[2016-11-28] MEDS: ALPRAZolam 1 MG TAB PO PRN (11:34)
[2016-11-28] MEDS: ATORVASTATIN 80 MG TAB PO SCH (11:34)
[2016-11-28] MEDS: ASPIRIN 81 MG CHEW TAB CHEW SCH (11:34)
[2016-11-28] MEDS: GABAPENTIN 400 MG CAP PO SCH ×3 (11:35→18:09)
[2016-11-28] MEDS: NICOTINE 21 MG/24 HR PATCH TD SCH (11:36)
[2016-11-28 12:00] VITALS: BP 106/55; PULSE 62; RESP 20; TEMP 97.6; O2SAT 92
[2016-11-28 13:38] LABS: AUTOMATED NEUTROPHIL # 6.1 TH/MM3 (1.8-7.7); BASOPHIL # 0.1 TH/MM3 (0-0.2); BASOPHIL % 0.9 % (0.0-2.0); EOSINOPHIL # 0.2 TH/MM3 (0-0.4); EOSINOPHIL % 2.9 % (0.0-4.0); HEMATOCRIT 37.8 % (39.0-51.0); HEMO FLAGS DIFF FINAL; LYMPH % 16.7 % (9.0-44.0); LYMPHOCYTE # 1.4 TH/MM3 (1.0-4.8); MEAN CELL VOLUME 84.2 FL (80.0-100.0); MEAN CORPUSCULAR HEMOGLOBIN 27.4 PG (27.0-34.0); MEAN CORPUSCULAR HGB CONC 32.5 % (32.0-36.0); MONO % 6.6 % (0.0-8.0); NEUT % 72.9 % (16.0-70.0); PLATELET COUNT 224 TH/MM3 (150-450); RED BLOOD COUNT 4.49 MIL/MM3 (4.50-5.90); RED CELL DISTRIBUTION WIDTH 15.2 % (11.6-17.2); WHITE BLOOD COUNT 8.3 TH/MM3 (4.0-11.0)
[2016-11-28 14:02] LABS: BICARBONATE 30.6 MEQ/L (21.0-32.0); POTASSIUM 4.7 MEQ/L (3.5-5.1)
[2016-11-28 16:00] VITALS: BP 94/53; PULSE 63; RESP 20; TEMP 97.7; O2SAT 93
--- NOTE | 2016-11-28 16:19 | HHI.GIFU ---
Subjective Remarks Resting in bed. States he had small amount of rectal bleeding this am. Mild luq discomfort. (Geovanna Villalobos) Objective Vitals I&O Vital Signs Date Time Temp Pulse Resp B/P Pulse Ox O2 Delivery O2 Flow Rate FiO2 11/28/16 08:00 98.0 68 20 104/58 94 11/28/16 04:00 97.5 69 18 125/65 95 11/28/16 00:00 97.6 68 18 120/62 93 11/27/16 21:34 82 11/27/16 20:00 97.8 86 18 119/74 97 I/O 11/27/16 11/27/16 11/27/16 11/28/16 11/28/16 11/28/16 07:00 15:00 23:00 07:00 15:00 23:00 Intake Total 860 ml 720 ml 240 ml 0 ml Balance 860 ml 720 ml 240 ml 0 ml Intake Oral 360 ml 720 ml 240 ml 0 ml IV Total 500 ml # Voids 3 3 3 4 # Bowel Movements 1 2 2 0 Laboratory Laboratory Tests Test 11/28/16 11/28/16 08:00 13:15 White Blood Count 8.2 8.3 Red Blood Count 4.41 4.49 Hemoglobin 12.3 12.3 Hematocrit 37.4 37.8 Mean Corpuscular Volume 84.8 84.2 Mean Corpuscular Hemoglobin 27.8 27.4 Mean Corpuscular Hemoglobin 32.8 32.5 Concent Red Cell Distribution Width 15.3 15.2 Platelet Count 195 224 Mean Platelet Volume 9.4 9.2 Neutrophils (%) (Auto) 67.4 72.9 Lymphocytes (%) (Auto) 17.1 16.7 Monocytes (%) (Auto) 11.9 6.6 Eosinophils (%) (Auto) 2.7 2.9 Basophils (%) (Auto) 0.9 0.9 Neutrophils # (Auto) 5.5 6.1 Lymphocytes # (Auto) 1.4 1.4 Monocytes # (Auto) 1.0 0.6 Eosinophils # (Auto) 0.2 0.2 Basophils # (Auto) 0.1 0.1 CBC Comment DIFF FINAL DIFF FINAL Differential Comment Sodium Level 135 Potassium Level 4.7 Chloride Level 97 Carbon Dioxide Level 30.6 Anion Gap 7 Blood Urea Nitrogen 21 Creatinine 1.04 Estimat Glomerular Filtration 73 Rate Random Glucose 96 Calcium Level 8.8 Date/Time Procedure Status Source Growth 11/27/16 12:15 Cryptosporidium Exam Resulted Stool Stool Pending 11/27/16 12:15 Stool Pus (KARINA) - Final Resulted Stool Stool RARE WBC 11/27/16 12:15 Giardia Antigen (KARINA) Resulted Stool Stool Pending 11/27/16 12:15 Received Stool Stool Pending Imaging Last Impressions Chest X-Ray 11/27/16 0000 Signed Impressions: Service Date/Time: Sunday, November 27, 2016 16:43 - CONCLUSION: No acute disease. Cr Tay MD Abdomen/Pelvis CT 11/26/16 0000 Signed Impressions: Service Date/Time: Saturday, November 26, 2016 21:39 - CONCLUSION: 1. Mild proctitis/distal colitis in the proper clinical setting. Moderate stool throughout the colon. Nonobstructive pattern. 2. Food filled stomach with mild distention. Cr Rodriguez MD Abdomen X-Ray 11/25/16 0000 Signed Impressions: Service Date/Time: Friday, November 25, 2016 12:49 - CONCLUSION: Normal examination. Calvin Delgado MD Physical Exam HEENT: Normocephalic; atraumatic; no jaundice. CHEST: CTA CARDIAC: RRR ABDOMEN: Soft, nondistended, mild luq tenderness; no hepatosplenomegaly; bowel sounds are present in all four quadrants. EXTREMITIES: No clubbing, cyanosis, or edema. SKIN: Normal; no rash; no jaundice. DATA INPUT CLERK: No focal deficits; alert and oriented times three. (Geovanna VillalobosP) Assessment and Plan Plan ASSESSMENT: - Rectal bleeding. CT scan with mild proctitis/distal colitis in the proper clinical setting. Moderate stool throughout the colon. Nonobstructive pattern. Food filled stomach with mild distention. No previous EGD/colonoscopy He was supposed to have a colonoscopy at [facility], but the prep was poor and he never had it done, not able to recall the physician name. Upper GI series/SBFT results pending. States he had a small amount of rectal bleeding this am. Stool studies pending. HH stable. 12.3. - LUQ pain, Abdominal distention. Upper gi series, sbft pending. - Proctitis/distal colitis- Ct as above, no previous history of this, Stool studies pending, Flagyl - GERD/dysphagia/atypical chest pain- this is on going for few months. states the food gets stuck at times to where he has to fransisco it with water. PPI, no previous EGD, no alcohol intake. - CAD, CABG X 2, Stents on effient,LVEF 40-45% by recent echo, cardiology on the case- Dr. Bunch spoke with Dr. Snell-Noemí, okay for egd/colonoscopy as long as anticoagulation is not held. Plan: - Plan for egd/colonoscopy in am on Effiant- okay with cardiology - Obtain consents - Clear liquids - NPO after MN - Golytely prep (start after upper gi series resulted) - Cont. PPI - Cont. Flagyl - Await results of Upper GI/SBFT - Notify GI for active bleed - D/W Cardiology - D/W Dr. Hurst - Patient seen and examined by Dr. Bunch and myself and this note is written on his behalf. (Geovanna Villalobos) Physician Comments Seen and examined with Ms. Wilfredo DESAI, discussed with Dr. Hurst and REID. EGd/ colonoscopy tomorrow on effient. Will not stop anticoagulation for this procedure. Discussed with pt. (Falguni Bunch MD) Geovanna Villalobos Nov 28, 2016 16:18 Falguni Bunch MD Nov 28, 2016 16:43
--- NOTE | 2016-11-28 16:54 | RADRPT ---
EXAM DATE/TIME: 11/28/2016 09:01 [facility] COMPARISON: CT ABDOMEN & PELVIS W CONTRAST, November 26, 2016, 21:39. INDICATIONS : Distention, pain FLUORO TIME: 1.8 minutes IMAGE COUNT: CONTRAST: Liquid E-Z Paque Barium Sulfate (60% w/v, 41% w/w) IMAGING TIME(S): 15 min, 30 min MEDICAL HISTORY : blood in his stool SURGICAL HISTORY : CABG. ENCOUNTER: Initial ACUITY: 4 - 6 days PAIN SCORE: 6/10 LOCATION: Bilateral abdomen/ small bowel FINDINGS: Preliminary film is unremarkable. Surgical changes related to the patient's prior CABG. Examination of the swallowing function demonstrates no evidence of aspiration or penetration. The montrell dy of the esophagus is unremarkable. No reflux or hiatal hernia is identified. Examination of the stomach demonstrates no evidence of intraluminal mass or extrinsic compression. T he gastric volume appears normal and there are no findings of ulceration. The mucosal pattern appear s normal. The duodenal bulb and sweep appear normal. The visualized small bowel is unremarkable. There is slow passage of contrast through the small bowel with contrast still within the small bowel at 6 hours. CONCLUSION: No evidence of bowel obstruction. There is significantly slowed clearance of barium from the small montrell wel, still present within the small bowel at 6 hours. This may be related to pain control medication. . Ronna Silverio MD on November 28, 2016 at 16:51 Board Certified Radiologist. This report was verified electronically.
[2016-11-28] MEDS ORDERED: PEG (High)/E-LYTE SOLN 4000 ML BTL PO ONE (17:00)
[2016-11-28 20:00] VITALS: BP 107/55; PULSE 85; RESP 18; TEMP 97.4; O2SAT 96
--- NOTE | 2016-11-28 22:13 | HHI.PR ---
Subjective Remarks patient seen today around 3 PM. Patient states that pain is controlled. He says he is still having regular bowel movements. He denies any chest pain shortness of breath. Objective Vital Signs Date Time Temp Pulse Resp B/P Pulse Ox O2 Delivery O2 Flow Rate FiO2 11/28/16 16:00 97.7 63 20 94/53 93 11/28/16 12:00 97.6 62 20 106/55 92 11/28/16 08:00 68 11/28/16 08:00 98.0 68 20 104/58 94 11/28/16 04:00 97.5 69 18 125/65 95 11/28/16 00:00 97.6 68 18 120/62 93 I/O 11/27/16 11/27/16 11/27/16 11/28/16 11/28/16 11/28/16 07:00 15:00 23:00 07:00 15:00 23:00 Intake Total 860 ml 720 ml 240 ml 0 ml 0 ml Balance 860 ml 720 ml 240 ml 0 ml 0 ml Intake Oral 360 ml 720 ml 240 ml 0 ml 0 ml IV Total 500 ml # Voids 3 3 3 4 1 # Bowel Movements 1 2 2 0 1 Result Diagram: 11/28/16 1315 11/28/16 1315 Objective Remarks GENERAL: sitting up in bed. Appears more comfortable. Patient is alert and oriented 3. SKIN: Warm and dry. HEAD: Normocephalic. EYES: No scleral icterus. No injection or drainage. NECK: Supple, trachea midline. No JVD. CARDIOVASCULAR: Regular rate and rhythm without murmurs, gallops, or rubs. RESPIRATORY: Breath sounds equal bilaterally. No accessory muscle use. GASTROINTESTINAL: Abdomen soft. abdomen nontender. No rebound or guarding. MUSCULOSKELETAL: No cyanosis, or edema. BACK: Nontender without obvious deformity. No CVA tenderness. A/P Assessment and Plan 61-year-old male with previous cardiac history including CABG and stenting, recently admitted in the hospital for unstable angina, status post stenting with a bare metal stent of the LAD and PTCA of proximal LAD with subacute thrombosis. //Non-ST elevated myocardial infarction: EKG personally reviewed showed T-wave flattening, no ST elevation. S/p bare-metal stent placement of the LAD and angioplasty of the LAD on 11/13/16. Troponin maxed at 0.29. Cardiology consulted, optimize medical management for now. Stop heparin. Continue Effient, aspirin, metoprolol, switch statin to atorvastatin, started long-acting Imdur, possibly start YOBANY inhibitors if blood pressure allows however still hypotensive at times. //Systolic exacerbation of CHF: -review of records revealed EF 45-50% from an echocardiogram 11/13/16. -Admit CXR bilateral pulmonary edema, admit BNP 800 -11/26 appears dehydrated. Hold Lasix, hold low-dose lisinopril -11/27. Vital signs stable. Continue holding Lasix and lisinopril 11/28. As acute kidney injury is resolved. Plan to restart lisinopril and Lasix. Patient will be a medial after midnight, so can start this pending labs tomorrow //Acute kidney injury. -With creatinine 1.6 on 11/26 Likely secondary to nausea and vomiting, dehydration. 500mL bolus. -Hold lisinopril and Lasix. -Follow renal function. -Adjust gabapentin dose as necessary. -11/27. Creatinine improved to 1.48 with holding Lasix and lisinopril. 11/28. Resolved. Patient will be nothing by mouth for colonoscopy. Plan to restart Lasix afterward //Rash: monitor for now. //Chronic neck pain: from a fall many years back, continue Flexeril, oxycodone and gabapentin. Tramadol as needed. //Nausea/Vomiting/Constipation: //Hematochezia started 11/25 overnight //Patient reports multiple bowel movements, now loose, however only one recorded. -11/25 negative abdominal xray. -Patient with new left lower quadrant pain on 11/26. CT abdomen ordered. 11/26 Stat CBC, CMP. Every 6 hour hemoglobin. GI consultation. Hemoccult ordered. Stop subcutaneous heparin. 11/27. GI assistance appreciated. Hemoglobin relatively stable. Hematochezia continues however DVT prophylaxis: Continue holding heparin sq due to hematochezia Ambulate. Discharge Planning Will need rehabilitation, consult case management. Patient lost his house. Oscar Hurst MD Nov 28, 2016 22:13
[2016-11-28] MEDS ORDERED: MAGNESIUM CITRATE SOLN 300 ML BTL PO SCH (22:15)
[2016-11-29] VITALS (7 sets, daily range): BP systolic 95–136; BP diastolic 58–73; PULSE 65–76; RESP 17–20; TEMP 97.7–98; O2SAT 92–95
[2016-11-29 00:15] LABS: HEMATOCRIT 38.9 % (39.0-51.0); REVIEW FLAG FINAL
[2016-11-29] MEDS: ALPRAZolam 1 MG TAB PO PRN ×3 (00:26→23:40)
[2016-11-29] MEDS: CYCLOBENZAPRINE HCL 10 MG TAB PO PRN ×3 (00:26→23:40)
[2016-11-29] MEDS: metroNIDAZOLE 500 MG TAB PO SCH ×3 (06:00→20:46)
[2016-11-29] MEDS: ISOSORBIDE MONONITRATE 30 MG TAB PO SCH (06:22)
[2016-11-29 06:24] LABS: AUTOMATED NEUTROPHIL # 5.5 TH/MM3 (1.8-7.7); BASOPHIL % 0.4 % (0.0-2.0); EOSINOPHIL # 0.3 TH/MM3 (0-0.4); EOSINOPHIL % 3.2 % (0.0-4.0); HEMATOCRIT 37.3 % (39.0-51.0); HEMO FLAGS DIFF FINAL; LYMPHOCYTE # 1.5 TH/MM3 (1.0-4.8); MEAN CELL VOLUME 83.6 FL (80.0-100.0); MEAN CORPUSCULAR HEMOGLOBIN 28.4 PG (27.0-34.0); MEAN CORPUSCULAR HGB CONC 33.9 % (32.0-36.0); NEUT % 69.4 % (16.0-70.0); PLATELET COUNT 223 TH/MM3 (150-450); RED BLOOD COUNT 4.45 MIL/MM3 (4.50-5.90); RED CELL DISTRIBUTION WIDTH 15.3 % (11.6-17.2); WHITE BLOOD COUNT 7.9 TH/MM3 (4.0-11.0)
[2016-11-29 06:42] LABS: BICARBONATE 31.5 MEQ/L (21.0-32.0); POTASSIUM 4.3 MEQ/L (3.5-5.1)
--- NOTE | 2016-11-29 08:28 | HHI.PR ---
Subjective Remarks Follow up for NSTEMI s/p bare metal stent placement currently on Prasugrel. Patient underwent endoscopic studies today but colon prep was not adequate. Patient feels very hungry and does not feel like he wants to go through another colonoscopy tomorrow. After talking to GI, however, patient agreed to undergo another prep for colonoscopy in the AM. Denies any fever, chills. Objective Vitals Vital Signs Date Time Temp Pulse Resp B/P Pulse Ox O2 Delivery O2 Flow Rate FiO2 11/29/16 04:00 97.7 67 17 95/58 93 11/29/16 00:00 97.7 71 17 103/68 93 11/28/16 20:40 Room Air 11/28/16 20:00 97.4 85 18 107/55 96 11/28/16 16:00 97.7 63 20 94/53 93 11/28/16 12:00 97.6 62 20 106/55 92 I/O 11/28/16 11/28/16 11/28/16 11/29/16 11/29/16 11/29/16 07:00 15:00 23:00 07:00 15:00 23:00 Intake Total 0 ml 0 ml 480 ml 0 ml Balance 0 ml 0 ml 480 ml 0 ml Intake Oral 0 ml 0 ml 480 ml 0 ml # Voids 4 1 0 1 # Bowel Movements 0 1 0 0 Result Diagram: 11/29/16 0534 11/29/16 0534 Imaging Last Impressions Upper GI and Small Bowel X-Ray 11/28/16 0000 Signed Impressions: Service Date/Time: Monday, November 28, 2016 09:01 - CONCLUSION: No evidence of bowel obstruction. There is significantly slowed clearance of barium from the small bowel, still present within the small bowel at 6 hours. This may be related to pain control medication.. Ronna Silverio MD Chest X-Ray 11/27/16 0000 Signed Impressions: Service Date/Time: Sunday, November 27, 2016 16:43 - CONCLUSION: No acute disease. Cr Tay MD Abdomen/Pelvis CT 11/26/16 0000 Signed Impressions: Service Date/Time: Saturday, November 26, 2016 21:39 - CONCLUSION: 1. Mild proctitis/distal colitis in the proper clinical setting. Moderate stool throughout the colon. Nonobstructive pattern. 2. Food filled stomach with mild distention. Cr Rodriguez MD Abdomen X-Ray 11/25/16 0000 Signed Impressions: Service Date/Time: Friday, November 25, 2016 12:49 - CONCLUSION: Normal examination. Calvin Delgado MD Objective Remarks GENERAL: AOX3, NAD. SKIN: Warm and dry. HEAD: Normocephalic. EYES: No scleral icterus. No injection or drainage. NECK: Supple, trachea midline. No JVD or lymphadenopathy. CARDIOVASCULAR: Regular rate and rhythm without murmurs, gallops, or rubs. RESPIRATORY: Breath sounds equal bilaterally. No accessory muscle use. GASTROINTESTINAL: Abdomen soft, non-tender, nondistended. MUSCULOSKELETAL: No cyanosis, or edema. BACK: Nontender without obvious deformity. No CVA tenderness. Procedures Cardiac cath s/p bare metal stent placement. A/P Assessment and Plan 61-year-old male with previous cardiac history including CABG and stenting, recently admitted in the hospital for unstable angina, status post stenting with a bare metal stent of the LAD and PTCA of proximal LAD with subacute thrombosis. - Non-ST elevated myocardial infarction: EKG personally reviewed showed T-wave flattening, no ST elevation. S/p bare-metal stent placement of the LAD and angioplasty of the LAD on 11/13/16. Troponin maxed at 0.29. Cardiology consulted, optimize medical management for now. Stop heparin. Continue Effient, aspirin, metoprolol, switched statin to atorvastatin, started long-acting Imdur - Systolic exacerbation of CHF: -review of records revealed EF 45-50% from an echocardiogram 11/13/16. - Initial CXR showed bilateral pulmonary edema, admit BNP 800 - Will restart Lasix 20mg Qday and Lisinopril 2.5mg Qday tomorrow after colonoscopy. - Acute kidney injury - resolved. - Chronic neck pain: from a fall many years back, continue Flexeril, oxycodone and gabapentin. Tramadol as needed. -Nausea/Vomiting/Constipation: -Hematochezia started 11/25 overnight -Patient reports multiple bowel movements, now loose, however only one recorded. -11/25 negative abdominal xray. -Patient with new left lower quadrant pain on 11/26. CT abdomen ordered. - GI following. Colonoscopy in the AM. - Patient is currently on Flagyl. C. Diff negative. We can likely discontinue Flagyl. Full code. SCDs. Discussed with GI. Varun Torres DO Nov 29, 2016 08:28 -11/25 negative abdominal xray. -Patient with new left lower quadrant pain on 11/26. CT abdomen ordered. 11/26 Stat CBC, CMP. Every 6 hour hemoglobin. GI consultation. Hemoccult ordered. Stop subcutaneous heparin. 11/27. GI assistance appreciated. Hemoglobin relatively stable. Hematochezia continues however DVT prophylaxis: Continue holding heparin sq due to hematochezia Ambulate. Discharge Planning Will need rehabilitation, consult case management. Patient lost his house. Varun Torres DO Nov 29, 2016 8:28 am
[2016-11-29] MEDS: REMOVE OLD PATCH TD SCH (09:00)
[2016-11-29] MEDS ORDERED: PROPOFOL 200 MG/20 ML AMP IV ONE (10:29)
[2016-11-29] MEDS ORDERED: MAGNESIUM CITRATE SOLN 300 ML BTL PO ONE ×2 (10:30→16:00)
[2016-11-29] MEDS: ASPIRIN 81 MG CHEW TAB CHEW SCH (11:06)
[2016-11-29] MEDS: SODIUM CHLORIDE 0.9% FLUSH 5 ML FLUSH FLUSH SCH ×2 (11:07→20:47)
[2016-11-29] MEDS: GABAPENTIN 400 MG CAP PO SCH ×3 (11:07→18:03)
[2016-11-29] MEDS: PANTOPRAZOLE SOD 40 MG DELAYED RELEASE TAB PO SCH (11:07)
[2016-11-29] MEDS: ATORVASTATIN 80 MG TAB PO SCH (11:07)
[2016-11-29] MEDS: PRASUGREL 10 MG TAB PO SCH (11:07)
[2016-11-29] MEDS: METOPROLOL TARTRATE 25 MG TAB PO SCH ×2 (11:07→20:46)
[2016-11-29] MEDS: NICOTINE 21 MG/24 HR PATCH TD SCH (11:08)
[2016-11-30] VITALS (8 sets, daily range): BP systolic 100–123; BP diastolic 57–69; PULSE 69–109; RESP 17–18; TEMP 97.3–98.2; O2SAT 93–96
[2016-11-30] MEDS: metroNIDAZOLE 500 MG TAB PO SCH ×3 (06:00→21:48)
[2016-11-30] MEDS: ISOSORBIDE MONONITRATE 30 MG TAB PO SCH (06:43)
[2016-11-30 07:09] LABS: POTASSIUM 3.9 MEQ/L (3.5-5.1)
[2016-11-30] MEDS: ONDANSETRON HCL 4 MG/2 ML VIAL IV PRN (08:22)
[2016-11-30] MEDS: GABAPENTIN 400 MG CAP PO SCH ×3 (09:00→17:13)
[2016-11-30] MEDS: REMOVE OLD PATCH TD SCH (09:00)
[2016-11-30] MEDS: SODIUM CHLORIDE 0.9% FLUSH 5 ML FLUSH FLUSH SCH ×2 (09:00→21:49)
[2016-11-30] MEDS ORDERED: PROPOFOL 200 MG/20 ML AMP IV ONE (09:49)
[2016-11-30] MEDS: ASPIRIN 81 MG CHEW TAB CHEW SCH (11:18)
[2016-11-30] MEDS: ATORVASTATIN 80 MG TAB PO SCH (11:18)
[2016-11-30] MEDS: PANTOPRAZOLE SOD 40 MG DELAYED RELEASE TAB PO SCH (11:18)
[2016-11-30] MEDS: PRASUGREL 10 MG TAB PO SCH (11:19)
[2016-11-30] MEDS: METOPROLOL TARTRATE 25 MG TAB PO SCH ×2 (11:19→21:52)
[2016-11-30] MEDS: NICOTINE 21 MG/24 HR PATCH TD SCH (11:21)
[2016-11-30 11:42] LABS: HEMATOCRIT 43.5 % (39.0-51.0); REVIEW FLAG FINAL
[2016-11-30] MEDS: CYCLOBENZAPRINE HCL 10 MG TAB PO PRN ×2 (12:19→21:48)
[2016-11-30] MEDS: ALPRAZolam 1 MG TAB PO PRN ×2 (12:19→21:48)
--- NOTE | 2016-11-30 15:46 | HHI.PR ---
Subjective Remarks Follow up for NSTEMI s/p bare metal stent placement currently on Prasugrel. Mr. Zazueta complains of abdominal pain. No fever, chills. He underwent colonoscopy today. Objective Vitals Vital Signs Date Time Temp Pulse Resp B/P Pulse Ox O2 Delivery O2 Flow Rate FiO2 11/30/16 12:07 97.9 94 18 118/69 93 11/30/16 10:10 87 18 101/65 92 11/30/16 10:08 Nasal Cannula 11/30/16 10:06 83 20 102/67 97 11/30/16 10:01 98.2 85 20 108/69 93 11/30/16 09:12 98.0 95 18 107/69 93 11/30/16 08:24 98.0 95 18 107/69 93 11/30/16 07:15 Room Air 2.00 11/30/16 04:00 97.7 86 17 123/58 93 11/30/16 00:00 97.3 69 18 100/61 95 11/29/16 21:00 Room Air 11/29/16 20:00 69 11/29/16 20:00 97.7 76 18 136/73 95 11/29/16 16:00 97.7 71 20 106/71 92 I/O 11/29/16 11/29/16 11/29/16 11/30/16 11/30/16 11/30/16 07:00 15:00 23:00 07:00 15:00 23:00 Intake Total 0 ml 50 ml 240 ml 0 ml 75 ml Balance 0 ml 50 ml 240 ml 0 ml 75 ml Intake Oral 0 ml 0 ml 240 ml 0 ml IV Total 75 ml Other 50 ml # Voids 1 4 2 2 # Bowel Movements 0 5 2 2 Result Diagram: 11/30/16 1130 11/30/16 0609 Imaging Last Impressions Upper GI and Small Bowel X-Ray 11/28/16 0000 Signed Impressions: Service Date/Time: Monday, November 28, 2016 09:01 - CONCLUSION: No evidence of bowel obstruction. There is significantly slowed clearance of barium from the small bowel, still present within the small bowel at 6 hours. This may be related to pain control medication.. Ronna Silverio MD Chest X-Ray 11/27/16 0000 Signed Impressions: Service Date/Time: Sunday, November 27, 2016 16:43 - CONCLUSION: No acute disease. Cr Tay MD Abdomen/Pelvis CT 11/26/16 0000 Signed Impressions: Service Date/Time: Saturday, November 26, 2016 21:39 - CONCLUSION: 1. Mild proctitis/distal colitis in the proper clinical setting. Moderate stool throughout the colon. Nonobstructive pattern. 2. Food filled stomach with mild distention. Cr Rodriguez MD Abdomen X-Ray 11/25/16 0000 Signed Impressions: Service Date/Time: Friday, November 25, 2016 12:49 - CONCLUSION: Normal examination. Calvin Delgado MD Objective Remarks GENERAL: AOX3, NAD. SKIN: Warm and dry. HEAD: Normocephalic. EYES: No scleral icterus. No injection or drainage. NECK: Supple, trachea midline. No JVD or lymphadenopathy. CARDIOVASCULAR: Regular rate and rhythm without murmurs, gallops, or rubs. RESPIRATORY: Breath sounds equal bilaterally. No accessory muscle use. GASTROINTESTINAL: Abdomen soft, non-tender, nondistended. MUSCULOSKELETAL: No cyanosis, or edema. BACK: Nontender without obvious deformity. No CVA tenderness. Procedures Cardiac cath s/p bare metal stent placement. A/P Assessment and Plan 61-year-old male with previous cardiac history including CABG and stenting, recently admitted in the hospital for unstable angina, status post stenting with a bare metal stent of the LAD and PTCA of proximal LAD with subacute thrombosis. - Non-ST elevated myocardial infarction: EKG personally reviewed showed T-wave flattening, no ST elevation. S/p bare-metal stent placement of the LAD and angioplasty of the LAD on 11/13/16. Troponin maxed at 0.29. Cardiology consulted, optimize medical management for now. Stop heparin. Continue Effient, aspirin, metoprolol, switched statin to atorvastatin, started long-acting Imdur - Systolic exacerbation of CHF: -review of records revealed EF 45-50% from an echocardiogram 11/13/16. - Initial CXR showed bilateral pulmonary edema, admit BNP 800 - resume Lasix 20mg Qday and Lisinopril 2.5mg Qday. - Acute kidney injury - resolved. - Chronic neck pain: from a fall many years back, continue Flexeril, oxycodone and gabapentin. Tramadol as needed. -Nausea/Vomiting/Constipation: -Hematochezia started 11/25 overnight - Abdominal pain - SBFT negative for any obstruction. - 11/25 negative abdominal xray. - Patient is currently on Flagyl. C. Diff negative. We can likely discontinue Flagyl. - Continue Maalox - Anxiety - continue Xanax 1mg TID PRN Full code. SCDs. Discharge plan: Patient is homeless. CM looked into SNF placement which does not appear to be a viable option either. Varun Torres DO Nov 30, 2016 15:46
[2016-12-01] VITALS (8 sets, daily range): BP systolic 97–124; BP diastolic 55–70; PULSE 80–87; RESP 12–18; TEMP 97.7–98.4; O2SAT 91–97
[2016-12-01] MEDS: metroNIDAZOLE 500 MG TAB PO SCH ×3 (06:15→20:49)
[2016-12-01] MEDS: ISOSORBIDE MONONITRATE 30 MG TAB PO SCH (07:00)
[2016-12-01 07:24] LABS: HEMATOCRIT 35.8 % (39.0-51.0); MEAN CELL VOLUME 83.5 FL (80.0-100.0); MEAN CORPUSCULAR HEMOGLOBIN 27.6 PG (27.0-34.0); MEAN CORPUSCULAR HGB CONC 33.1 % (32.0-36.0); PLATELET COUNT 198 TH/MM3 (150-450); RED BLOOD COUNT 4.29 MIL/MM3 (4.50-5.90); RED CELL DISTRIBUTION WIDTH 15.4 % (11.6-17.2); REVIEW FLAG FINAL; WHITE BLOOD COUNT 7.4 TH/MM3 (4.0-11.0)
[2016-12-01 07:39] LABS: POTASSIUM 4.4 MEQ/L (3.5-5.1)
--- NOTE | 2016-12-01 08:31 | HHI.PR ---
Subjective Remarks Follow up for NSTEMI s/p bare metal stent placement currently on Prasugrel. Mr. Zazueta complains of cough and due to cough he is having some dysphagia, swallowing difficulty. No fever, chills. He still has lower abdominal pain. Objective Vitals Vital Signs Date Time Temp Pulse Resp B/P Pulse Ox O2 Delivery O2 Flow Rate FiO2 12/01/16 04:00 98.1 80 18 97/55 93 12/01/16 00:07 98.2 87 18 116/68 94 11/30/16 20:00 86 11/30/16 20:00 Room Air 11/30/16 20:00 98.2 86 18 106/57 94 11/30/16 16:11 98.1 76 17 104/60 96 11/30/16 12:07 97.9 94 18 118/69 93 11/30/16 10:10 87 18 101/65 92 11/30/16 10:08 Nasal Cannula 11/30/16 10:06 83 20 102/67 97 11/30/16 10:01 98.2 85 20 108/69 93 11/30/16 09:12 98.0 95 18 107/69 93 I/O 11/30/16 11/30/16 11/30/16 12/01/16 12/01/16 12/01/16 07:00 15:00 23:00 07:00 15:00 23:00 Intake Total 0 ml 315 ml Balance 0 ml 315 ml Intake Oral 0 ml 240 ml IV Total 75 ml # Voids 2 3 # Bowel Movements 2 0 Result Diagram: 12/01/16 0647 12/01/16 0647 Imaging Last Impressions Upper GI and Small Bowel X-Ray 11/28/16 0000 Signed Impressions: Service Date/Time: Monday, November 28, 2016 09:01 - CONCLUSION: No evidence of bowel obstruction. There is significantly slowed clearance of barium from the small bowel, still present within the small bowel at 6 hours. This may be related to pain control medication.. Ronna Silverio MD Chest X-Ray 11/27/16 0000 Signed Impressions: Service Date/Time: Sunday, November 27, 2016 16:43 - CONCLUSION: No acute disease. Cr Tay MD Abdomen/Pelvis CT 11/26/16 0000 Signed Impressions: Service Date/Time: Saturday, November 26, 2016 21:39 - CONCLUSION: 1. Mild proctitis/distal colitis in the proper clinical setting. Moderate stool throughout the colon. Nonobstructive pattern. 2. Food filled stomach with mild distention. Cr Rodriguez MD Abdomen X-Ray 11/25/16 0000 Signed Impressions: Service Date/Time: Friday, November 25, 2016 12:49 - CONCLUSION: Normal examination. aClvin Delgado MD Objective Remarks GENERAL: AOX3, NAD. SKIN: Warm and dry. HEAD: Normocephalic. EYES: No scleral icterus. No injection or drainage. NECK: Supple, trachea midline. No JVD or lymphadenopathy. CARDIOVASCULAR: Regular rate and rhythm without murmurs, gallops, or rubs. RESPIRATORY: Breath sounds equal bilaterally. No accessory muscle use. GASTROINTESTINAL: Abdomen soft, non-tender, nondistended. MUSCULOSKELETAL: No cyanosis, or edema. BACK: Nontender without obvious deformity. No CVA tenderness. Procedures Cardiac cath s/p bare metal stent placement. EGD/Colonoscopy A/P Assessment and Plan Mr. Zazueta is a 61-year-old male with previous cardiac history including CABG and stenting, recently admitted in the hospital for unstable angina, status post stenting with a bare metal stent of the LAD and PTCA of proximal LAD with subacute thrombosis. - Non-ST elevated myocardial infarction - status post bare-metal stent placement of the LAD and angioplasty of the LAD on 11/13/16. Troponin maxed at 0.29. - Continue aspirin 81 mg, metoprolol 25 mg every 12 hours, lisinopril 2.5 mg , atorvastatin 80 mg, Prasugrel 10 mg. - Also continue furosemide 20 mg by mouth daily - Systolic exacerbation of CHF: - review of records revealed EF 45-50% from an echocardiogram 11/13/16. - Initial CXR showed bilateral pulmonary edema, admit BNP 800 - Lasix 20mg Qday and Lisinopril 2.5mg Qday. - Acute kidney injury - resolved. - Chronic neck pain: from a fall many years back, continue Flexeril, oxycodone and gabapentin. Tramadol as needed. - Nausea/Vomiting/Constipation: - Hematochezia started 11/25 overnight - Abdominal pain - SBFT negative for any obstruction. - 11/25 negative abdominal xray. - Patient is currently on Flagyl. C. Diff negative. - s/p EGD/Colonoscopy. Colonoscopy showed some rectal area colitis. GI following. - Continue Maalox - Cough/Dysphagia - will obtain CXR PA/Lateral as well as Sinus x-ray - Start Robitussin AC for symptomatic treatment. - Anxiety - continue Xanax 1mg TID PRN Full code. SCDs. Discharge plan: Patient is homeless. CM looked into SNF placement which does not appear to be a viable option either. Varun Torres DO Dec 01, 2016 8:30 am
[2016-12-01] MEDS: LISINOPRIL 5 MG TAB PO SCH (09:00)
[2016-12-01] MEDS: REMOVE OLD PATCH TD SCH (09:00)
[2016-12-01] MEDS: NICOTINE 21 MG/24 HR PATCH TD SCH (10:07)
[2016-12-01] MEDS: METOPROLOL TARTRATE 25 MG TAB PO SCH ×2 (10:10→20:49)
[2016-12-01] MEDS: GABAPENTIN 400 MG CAP PO SCH ×3 (10:10→16:53)
[2016-12-01] MEDS: ASPIRIN 81 MG CHEW TAB CHEW SCH (10:10)
[2016-12-01] MEDS: PRASUGREL 10 MG TAB PO SCH (10:11)
[2016-12-01] MEDS: ATORVASTATIN 80 MG TAB PO SCH (10:12)
[2016-12-01] MEDS: PANTOPRAZOLE SOD 40 MG DELAYED RELEASE TAB PO SCH (10:12)
[2016-12-01] MEDS: SODIUM CHLORIDE 0.9% FLUSH 5 ML FLUSH FLUSH SCH ×2 (10:13→22:17)
[2016-12-01] MEDS: FUROSEMIDE 20 MG TAB PO SCH (10:13)
[2016-12-01] MEDS: ONDANSETRON HCL 4 MG/2 ML VIAL IV PRN (13:04)
[2016-12-01] MEDS: FLUTICASONE PROPIONATE 50 MCG/ACT 16 GM NASAL SPRAY NASAL SCH ×2 (13:11→22:17)
[2016-12-01] MEDS: ALPRAZolam 1 MG TAB PO PRN ×2 (14:58→23:21)
[2016-12-01] MEDS: CYCLOBENZAPRINE HCL 10 MG TAB PO PRN ×2 (14:58→23:21)
--- NOTE | 2016-12-01 15:53 | RADRPT ---
EXAM DATE/TIME: 12/01/2016 15:31 [facility] COMPARISON: CHEST PA & LAT, November 23, 2016, 15:28. INDICATIONS : Cough, Short of Breath, Chest Pain. MEDICAL HISTORY : Cardiovascular disease. Chronic obstructive pulmonary disease. Hernia, hiatal. SURGICAL HISTORY : Cardiac Stents. Double Bypass. ENCOUNTER: Initial ACUITY: 1 week PAIN SCORE: 3/10 LOCATION: Bilateral chest FINDINGS: Frontal and lateral views of the chest demonstrate a normal-sized cardiac silhouette in this patient post median sternotomy and CABG. No pleural effusion, airspace consolidation, or pneumothorax is iden tified. The bones and soft tissues demonstrate no acute finding. CONCLUSION: No acute cardiopulmonary abnormality is identified. Cr Payton MD on December 01, 2016 at 15:50 Board Certified Radiologist. This report was verified electronically.
--- NOTE | 2016-12-01 16:02 | RADRPT ---
EXAM DATE/TIME: 12/01/2016 15:23 [facility] COMPARISON: No previous studies available for comparison. INDICATIONS : Cough, Nausea, Sinus Pain, Maxillary Sinus area most painful. MEDICAL HISTORY : Cardiovascular disease. Chronic obstructive pulmonary disease. Hernia, hiatal. SURGICAL HISTORY : Cardiac Stents. Double bypass. ENCOUNTER: Initial ACUITY: 1 week PAIN SCORE: 3/10 LOCATION: Bilateral paranasal sinuses. FINDINGS: There is mucosal thickening identified at the left maxillary sinus. The remaining sinuses appear rupert ssly normal. The frontal sinuses are hypoplastic. The bony structures appear grossly intact. CONCLUSION: Mucosal thickening at the left maxillary sinus. Cr Tay MD on December 01, 2016 at 15:45 Board Certified Radiologist. This report was verified electronically.
[2016-12-01] MEDS ORDERED: SODIUM CHLOR 0.9% 1000 ML INJ 1,000 ML IV PRN (17:30)
[2016-12-01] MEDS ORDERED: SODIUM CHLOR 0.9% 1000 ML INJ 1,000 ML IV ONE (18:00)
[2016-12-02] VITALS: BP 102/58; PULSE 82; RESP 18; TEMP 98.3; O2SAT 93
[2016-12-02 04:00] VITALS: BP 98/52; PULSE 73; RESP 20; TEMP 98.1; O2SAT 95
[2016-12-02] MEDS: metroNIDAZOLE 500 MG TAB PO SCH ×3 (05:30→21:48)
[2016-12-02] MEDS: ISOSORBIDE MONONITRATE 30 MG TAB PO SCH (07:00)
[2016-12-02 08:00] VITALS: BP 82/52; PULSE 76; RESP 16; TEMP 97.8; O2SAT 96
[2016-12-02] MEDS: FUROSEMIDE 20 MG TAB PO SCH (09:00)
[2016-12-02] MEDS: METOPROLOL TARTRATE 25 MG TAB PO SCH ×2 (09:00→21:49)
[2016-12-02] MEDS: LISINOPRIL 5 MG TAB PO SCH (09:00)
[2016-12-02] MEDS: REMOVE OLD PATCH TD SCH (09:00)
[2016-12-02] MEDS ORDERED: SODIUM CHLOR 0.9% 250 ML INJ 250 ML IV ONE (10:30)
[2016-12-02] MEDS: PRASUGREL 10 MG TAB PO SCH (10:37)
[2016-12-02] MEDS: GABAPENTIN 400 MG CAP PO SCH ×3 (10:37→17:23)
[2016-12-02] MEDS: SODIUM CHLORIDE 0.9% FLUSH 5 ML FLUSH FLUSH SCH ×2 (10:38→21:49)
[2016-12-02] MEDS: ATORVASTATIN 80 MG TAB PO SCH (10:38)
[2016-12-02] MEDS: FLUTICASONE PROPIONATE 50 MCG/ACT 16 GM NASAL SPRAY NASAL SCH ×2 (10:38→21:00)
[2016-12-02] MEDS: ASPIRIN 81 MG CHEW TAB CHEW SCH (10:38)
[2016-12-02] MEDS: NICOTINE 21 MG/24 HR PATCH TD SCH (10:39)
[2016-12-02] MEDS: PANTOPRAZOLE SOD 40 MG DELAYED RELEASE TAB PO SCH (10:39)
--- NOTE | 2016-12-02 11:20 | HHI.PR ---
Subjective Remarks Follow-up non-ST elevation [place], hypotension. Per nursing, the patient is threatening to leave AGAINST MEDICAL ADVICE. He reports chronic back pain. States that he is frustrated that he is not getting his pain medication because his blood pressure is low. Objective Vitals Vital Signs Date Time Temp Pulse Resp B/P Pulse Ox O2 Delivery O2 Flow Rate FiO2 12/02/16 08:00 97.8 76 16 82/52 96 12/02/16 04:00 98.1 73 20 98/52 95 12/02/16 00:00 98.3 82 18 102/58 93 12/01/16 20:00 83 12/01/16 20:00 97.8 80 18 105/66 95 12/01/16 20:00 Room Air 12/01/16 17:30 87 18 110/57 93 12/01/16 16:00 98.4 80 16 124/70 97 12/01/16 12:00 98.3 86 16 111/56 91 I/O 12/01/16 12/01/16 12/01/16 12/02/16 12/02/16 12/02/16 07:00 15:00 23:00 07:00 15:00 23:00 Intake Total 240 ml Output Total 400 ml Balance 240 ml -400 ml Intake Oral 240 ml Output Urine Total 400 ml # Voids 1 # Bowel Movements 1 Result Diagram: 12/01/16 0647 12/01/16 0647 Imaging Last Impressions Sinuses X-Ray 12/01/16 0000 Signed Impressions: Service Date/Time: Thursday, December 01, 2016 15:23 - CONCLUSION: Mucosal thickening at the left maxillary sinus. Cr Tay MD Chest X-Ray 12/01/16 0000 Signed Impressions: Service Date/Time: Thursday, December 01, 2016 15:31 - CONCLUSION: No acute cardiopulmonary abnormality is identified. Cr Payton MD Upper GI and Small Bowel X-Ray 11/28/16 0000 Signed Impressions: Service Date/Time: Monday, November 28, 2016 09:01 - CONCLUSION: No evidence of bowel obstruction. There is significantly slowed clearance of barium from the small bowel, still present within the small bowel at 6 hours. This may be related to pain control medication.. Ronna Silverio MD Abdomen/Pelvis CT 1/16/17 0000 Signed Impressions: Service Date/Time: Saturday, November 26, 2016 21:39 - CONCLUSION: 1. Mild proctitis/distal colitis in the proper clinical setting. Moderate stool throughout the colon. Nonobstructive pattern. 2. Food filled stomach with mild distention. Cr Rodriguez MD Abdomen X-Ray 11/25/16 0000 Signed Impressions: Service Date/Time: Friday, November 25, 2016 12:49 - CONCLUSION: Normal examination. Calvin Delgado MD Objective Remarks General: No acute distress. Heart: Regular rate and rhythm. No murmur. Lungs: Clear to auscultation bilaterally. No wheezes, rales, or rhonchi. Breathing is nonlabored. Abdomen: Soft, nontender, nondistended. Extremities: No lower extremity edema. Psych: Alert and oriented. Procedures Cardiac cath s/p bare metal stent placement. EGD/Colonoscopy Urinary Catheter: No Vascular Central Line Catheter: No A/P Problem List: (1) NSTEMI (non-ST elevated myocardial infarction) ICD Code: I21.4 Status: Acute (2) Acute exacerbation of congestive heart failure ICD Code: I50.9 Status: Acute (3) VESNA (acute kidney injury) ICD Code: N17.9 Status: Resolved (4) CAD (coronary artery disease) ICD Code: I25.10 Status: Chronic (5) Hyperlipidemia ICD Code: E78.5 Status: Chronic (6) Hypotension ICD Code: I95.9 Status: Acute Assessment and Plan 1. Non-ST elevation [place]: Status post cardiac catheterization with placement of bare metal stent of the LAD as well as angioplasty of the LAD on 11/13/16. Appreciate cardiology recommendations. Continue aspirin, metoprolol, lisinopril , statin, Prasugrel. 2. Acute exacerbation of chronic systolic congestive heart failure: Recent echocardiogram shows ejection fraction 45-50%. Continue Lasix, lisinopril. 3. Acute kidney injury: Resolved. 4. Chronic neck pain: Secondary to a fall many years ago. Continue Flexeril, oxycodone, gabapentin. 5. Abdominal pain: Appreciate GI recommendations. Status post EGD/colonoscopy, which showed colitis in the area of the rectum. 6. Anxiety: Continue Xanax as needed. 7. Hypotension: Hold blood pressure medications, Lasix. We'll give 250 mL normal saline bolus. Will need to be very cautious with IV fluids due to history of CHF. 8. DVT prophylaxis: SCDs. Problem Qualifiers (1) Acute exacerbation of congestive heart failure: Qualified Code: I50.23 - Acute on chronic systolic congestive heart failure (2) CAD (coronary artery disease): Jean Paul Birmingham MD Dec 02, 2016 11:20
[2016-12-02 12:00] VITALS: BP 109/75; PULSE 76; RESP 20; TEMP 98; O2SAT 98
[2016-12-02] MEDS: ALPRAZolam 1 MG TAB PO PRN ×2 (12:47→21:49)
[2016-12-02 14:19] LABS: AUTOMATED NEUTROPHIL # 7.1 TH/MM3 (1.8-7.7); BASOPHIL # 0.1 TH/MM3 (0-0.2); BASOPHIL % 0.6 % (0.0-2.0); EOSINOPHIL # 0.2 TH/MM3 (0-0.4); EOSINOPHIL % 2.3 % (0.0-4.0); HEMATOCRIT 35.6 % (39.0-51.0); HEMO FLAGS DIFF FINAL; LYMPH % 12.9 % (9.0-44.0); LYMPHOCYTE # 1.2 TH/MM3 (1.0-4.8); MEAN CELL VOLUME 83.2 FL (80.0-100.0); MEAN CORPUSCULAR HEMOGLOBIN 28.3 PG (27.0-34.0); MEAN CORPUSCULAR HGB CONC 34.1 % (32.0-36.0); MONO % 9.3 % (0.0-8.0); NEUT % 74.9 % (16.0-70.0); PLATELET COUNT 202 TH/MM3 (150-450); RED BLOOD COUNT 4.29 MIL/MM3 (4.50-5.90); RED CELL DISTRIBUTION WIDTH 15.1 % (11.6-17.2); WHITE BLOOD COUNT 9.4 TH/MM3 (4.0-11.0)
[2016-12-02 14:37] LABS: BICARBONATE 27.6 MEQ/L (21.0-32.0); POTASSIUM 4.2 MEQ/L (3.5-5.1)
[2016-12-02 16:00] VITALS: BP 107/59; PULSE 91; RESP 16; TEMP 98.5; O2SAT 95
[2016-12-02 20:00] VITALS: BP 112/66; PULSE 83; PULSE 92; RESP 20; TEMP 97.7; O2SAT 93
[2016-12-02] MEDS: CYCLOBENZAPRINE HCL 10 MG TAB PO PRN (21:50)
[2016-12-03] VITALS (8 sets, daily range): BP systolic 91–102; BP diastolic 53–65; PULSE 74–88; RESP 18–22; TEMP 97.4–98.5; O2SAT 93–94
[2016-12-03] MEDS: ISOSORBIDE MONONITRATE 30 MG TAB PO SCH (06:33)
[2016-12-03] MEDS: metroNIDAZOLE 500 MG TAB PO SCH ×3 (06:35→21:15)
[2016-12-03 08:24] LABS: BICARBONATE 25.6 MEQ/L (21.0-32.0); POTASSIUM 4.3 MEQ/L (3.5-5.1)
[2016-12-03] MEDS: METOPROLOL TARTRATE 25 MG TAB PO SCH ×2 (08:29→21:15)
[2016-12-03] MEDS: ATORVASTATIN 80 MG TAB PO SCH (08:30)
[2016-12-03] MEDS: LISINOPRIL 5 MG TAB PO SCH (08:30)
[2016-12-03] MEDS: ASPIRIN 81 MG CHEW TAB CHEW SCH (08:30)
[2016-12-03] MEDS: FUROSEMIDE 20 MG TAB PO SCH (08:30)
[2016-12-03] MEDS: REMOVE OLD PATCH TD SCH (08:31)
[2016-12-03] MEDS: PRASUGREL 10 MG TAB PO SCH (08:31)
[2016-12-03] MEDS: GABAPENTIN 400 MG CAP PO SCH ×3 (08:31→17:31)
[2016-12-03] MEDS: PANTOPRAZOLE SOD 40 MG DELAYED RELEASE TAB PO SCH (08:31)
[2016-12-03] MEDS: NICOTINE 21 MG/24 HR PATCH TD SCH (08:31)
[2016-12-03] MEDS: SODIUM CHLORIDE 0.9% FLUSH 5 ML FLUSH FLUSH SCH ×2 (08:32→21:15)
[2016-12-03] MEDS: FLUTICASONE PROPIONATE 50 MCG/ACT 16 GM NASAL SPRAY NASAL SCH ×2 (08:32→21:16)
[2016-12-03] MEDS: ALPRAZolam 1 MG TAB PO PRN ×2 (09:14→17:32)
[2016-12-03] MEDS: CYCLOBENZAPRINE HCL 10 MG TAB PO PRN ×2 (09:14→21:15)
[2016-12-03 10:13] LABS: AUTOMATED NEUTROPHIL # 5.9 TH/MM3 (1.8-7.7); BASOPHIL # 0.1 TH/MM3 (0-0.2); BASOPHIL % 0.6 % (0.0-2.0); EOSINOPHIL # 0.3 TH/MM3 (0-0.4); EOSINOPHIL % 3.3 % (0.0-4.0); HEMATOCRIT 35.1 % (39.0-51.0); HEMO FLAGS DIFF FINAL; LYMPH % 16.9 % (9.0-44.0); LYMPHOCYTE # 1.5 TH/MM3 (1.0-4.8); MEAN CELL VOLUME 82.5 FL (80.0-100.0); MEAN CORPUSCULAR HEMOGLOBIN 27.7 PG (27.0-34.0); MEAN CORPUSCULAR HGB CONC 33.6 % (32.0-36.0); MONO % 11.2 % (0.0-8.0); PLATELET COUNT 204 TH/MM3 (150-450); RED BLOOD COUNT 4.26 MIL/MM3 (4.50-5.90); RED CELL DISTRIBUTION WIDTH 15.2 % (11.6-17.2); WHITE BLOOD COUNT 8.7 TH/MM3 (4.0-11.0)
--- NOTE | 2016-12-03 15:03 | HHI.PR ---
Subjective Remarks Follow up back pain, hypotension. Patient reporting "kidney pain" bilaterally. Denies dysuria. He reports dry cough and dyspnea. Objective Vitals Vital Signs Date Time Temp Pulse Resp B/P Pulse Ox O2 Delivery O2 Flow Rate FiO2 12/03/16 12:04 97.4 81 22 98/59 94 12/03/16 08:06 98.0 74 22 102/65 94 12/03/16 07:33 20 12/03/16 04:00 98.4 86 18 91/56 94 12/03/16 00:00 98.5 84 18 94/56 94 12/02/16 21:45 Room Air 12/02/16 20:00 97.7 92 20 112/66 93 12/02/16 20:00 83 12/02/16 16:00 98.5 91 16 107/59 95 I/O 12/02/16 12/02/16 12/02/16 12/03/16 12/03/16 12/03/16 07:00 15:00 23:00 07:00 15:00 23:00 Intake Total 840 ml 490 ml 240 ml Output Total 400 ml 450 ml 350 ml 250 ml Balance -400 ml 390 ml 140 ml -10 ml Intake Oral 840 ml 240 ml 240 ml IV Total 250 ml Output Urine Total 400 ml 450 ml 350 ml 250 ml # Bowel Movements 0 0 Result Diagram: 12/03/16 0953 12/03/16 0735 Imaging Last Impressions Sinuses X-Ray 12/01/16 0000 Signed Impressions: Service Date/Time: Thursday, December 01, 2016 15:23 - CONCLUSION: Mucosal thickening at the left maxillary sinus. Cr Tay MD Chest X-Ray 12/01/16 0000 Signed Impressions: Service Date/Time: Thursday, December 01, 2016 15:31 - CONCLUSION: No acute cardiopulmonary abnormality is identified. Cr Payton MD Upper GI and Small Bowel X-Ray 11/28/16 0000 Signed Impressions: Service Date/Time: Monday, November 28, 2016 09:01 - CONCLUSION: No evidence of bowel obstruction. There is significantly slowed clearance of barium from the small bowel, still present within the small bowel at 6 hours. This may be related to pain control medication.. Ronna Silverio MD Abdomen/Pelvis CT 11/26/16 0000 Signed Impressions: Service Date/Time: Saturday, November 26, 2016 21:39 - CONCLUSION: 1. Mild proctitis/distal colitis in the proper clinical setting. Moderate stool throughout the colon. Nonobstructive pattern. 2. Food filled stomach with mild distention. Cr Rodriguez MD Abdomen X-Ray 11/25/16 0000 Signed Impressions: Service Date/Time: Friday, November 25, 2016 12:49 - CONCLUSION: Normal examination. Calvin Delgado MD Objective Remarks General: No acute distress. Heart: Regular rate and rhythm. No murmur. Lungs: Mild scattered wheeze. Breathing is nonlabored. Abdomen: Soft, nontender, nondistended. Back: Bilateral low back tenderness on exam. Extremities: No lower extremity edema. Psych: Alert and oriented. Procedures Cardiac cath s/p bare metal stent placement. EGD/Colonoscopy Urinary Catheter: No Vascular Central Line Catheter: No A/P Problem List: (1) NSTEMI (non-ST elevated myocardial infarction) ICD Code: I21.4 Status: Acute (2) Acute exacerbation of congestive heart failure ICD Code: I50.9 Status: Acute (3) VESNA (acute kidney injury) ICD Code: N17.9 Status: Resolved (4) CAD (coronary artery disease) ICD Code: I25.10 Status: Chronic (5) Hyperlipidemia ICD Code: E78.5 Status: Chronic (6) Hypotension ICD Code: I95.9 Status: Acute Assessment and Plan 1. Non-ST elevation [place]: Status post cardiac catheterization with placement of bare metal stent of the LAD as well as angioplasty of the LAD on 11/13/16. Appreciate cardiology recommendations. Continue aspirin, metoprolol, lisinopril , statin, Prasugrel. 2. Acute exacerbation of chronic systolic congestive heart failure: Recent echocardiogram shows ejection fraction 45-50%. Continue Lasix, lisinopril. 3. Acute kidney injury: Resolved. 4. Chronic neck pain: Secondary to a fall many years ago. Continue Flexeril, oxycodone, gabapentin. 5. Abdominal pain: Appreciate GI recommendations. Status post EGD/colonoscopy, which showed colitis in the area of the rectum. Follow up as outpatient with GI. 6. Anxiety: Continue Xanax as needed. 7. Hypotension: BP still low, but a little better today. Will need to be very cautious with IV fluids due to history of CHF. 8. DVT prophylaxis: SCDs. 9. Dyspnea: Patient uses albuterol inhaler frequently as outpatient. Will add Duoneb as needed. Problem Qualifiers (1) Acute exacerbation of congestive heart failure: Qualified Code: I50.23 - Acute on chronic systolic congestive heart failure (2) CAD (coronary artery disease): Jean Paul Birmingham MD Dec 03, 2016 15:03
[2016-12-03] MEDS ORDERED: RESP: ALBUTEROL 2.5 MG/IPRATROPIUM 0.5 MG NEB (PRN) NEB (15:30)
[2016-12-03] MEDS: ALUMINUM/MAGNESIUM/SIMETH 30 ML CUP PO PRN (15:41)
[2016-12-03] MEDS: guaiFENesin/CODEINE SYRUP 200 MG/20 MG/10 ML CUP PO PRN (21:22)
[2016-12-04] VITALS (8 sets, daily range): BP systolic 81–98; BP diastolic 48–60; PULSE 76–84; RESP 16–22; TEMP 96.9–98.3; O2SAT 93–96
[2016-12-04] MEDS: guaiFENesin/CODEINE SYRUP 200 MG/20 MG/10 ML CUP PO PRN ×3 (03:09→21:16)
[2016-12-04 03:25] LABS: BACTERIA, URINE RARE /hpf; BLOOD, URINE NEG (NEG); CALCIUM OXALATE CRYSTALS,URINE RARE /hpf; COMMENT (UR) CULT NOT INDICATED; CULTURE IF INDICATED CULT NOT INDICATED; GLUCOSE,URINE NEG (NEG); HYALINE CAST, URINE 17 /lpf (RARE); KETONE, URINE NEG (NEG); MUCUS URINE FEW /lpf (OCC); NITRITE,URINE NEG (NEG); URINE COLOR YELLOW (YELLW/STRAW)
[2016-12-04] MEDS: ISOSORBIDE MONONITRATE 30 MG TAB PO SCH (06:57)
[2016-12-04] MEDS: metroNIDAZOLE 500 MG TAB PO SCH ×3 (06:58→21:11)
[2016-12-04 07:23] LABS: AUTOMATED NEUTROPHIL # 6.4 TH/MM3 (1.8-7.7); BASOPHIL # 0.1 TH/MM3 (0-0.2); BASOPHIL % 0.7 % (0.0-2.0); EOSINOPHIL # 0.2 TH/MM3 (0-0.4); EOSINOPHIL % 2.4 % (0.0-4.0); HEMATOCRIT 35.2 % (39.0-51.0); HEMO FLAGS DIFF FINAL; LYMPH % 17.8 % (9.0-44.0); LYMPHOCYTE # 1.7 TH/MM3 (1.0-4.8); MEAN CELL VOLUME 83.1 FL (80.0-100.0); MEAN CORPUSCULAR HGB CONC 33.7 % (32.0-36.0); MONO % 13.7 % (0.0-8.0); NEUT % 65.4 % (16.0-70.0); PLATELET COUNT 212 TH/MM3 (150-450); RED BLOOD COUNT 4.24 MIL/MM3 (4.50-5.90); RED CELL DISTRIBUTION WIDTH 15.3 % (11.6-17.2); WHITE BLOOD COUNT 9.7 TH/MM3 (4.0-11.0)
[2016-12-04] MEDS: REMOVE OLD PATCH TD SCH (09:00)
[2016-12-04] MEDS: PRASUGREL 10 MG TAB PO SCH (09:03)
[2016-12-04] MEDS: ASPIRIN 81 MG CHEW TAB CHEW SCH (09:03)
[2016-12-04] MEDS: NICOTINE 21 MG/24 HR PATCH TD SCH (09:03)
[2016-12-04] MEDS: ATORVASTATIN 80 MG TAB PO SCH (09:03)
[2016-12-04] MEDS: PANTOPRAZOLE SOD 40 MG DELAYED RELEASE TAB PO SCH (09:03)
[2016-12-04] MEDS: GABAPENTIN 400 MG CAP PO SCH ×3 (09:03→16:56)
[2016-12-04] MEDS: METOPROLOL TARTRATE 25 MG TAB PO SCH ×2 (09:03→21:00)
[2016-12-04] MEDS: LISINOPRIL 5 MG TAB PO SCH (09:03)
[2016-12-04] MEDS: FUROSEMIDE 20 MG TAB PO SCH (09:03)
[2016-12-04] MEDS: SODIUM CHLORIDE 0.9% FLUSH 5 ML FLUSH FLUSH SCH ×2 (09:04→21:13)
[2016-12-04] MEDS: FLUTICASONE PROPIONATE 50 MCG/ACT 16 GM NASAL SPRAY NASAL SCH ×2 (09:04→21:13)
[2016-12-04] MEDS: ALPRAZolam 1 MG TAB PO PRN ×2 (09:08→18:10)
[2016-12-04] MEDS: CYCLOBENZAPRINE HCL 10 MG TAB PO PRN ×2 (09:08→21:11)
--- NOTE | 2016-12-04 14:46 | HHI.PR ---
Subjective Remarks Follow up back pain, hypotension. Patient has been somewhat confused at times per nursing. He reports cough, but denies chest pain and dyspnea. Objective Vitals Vital Signs Date Time Temp Pulse Resp B/P Pulse Ox O2 Delivery O2 Flow Rate FiO2 12/04/16 12:29 Room Air 12/04/16 05:40 92/60 Automatic Cuff 12/04/16 05:02 98.1 79 18 88/51 93 12/04/16 00:33 98.1 83 18 93/52 93 12/03/16 20:48 98.3 88 18 93/53 93 12/03/16 20:00 83 12/03/16 19:15 Room Air 12/03/16 16:36 20 12/03/16 16:03 98.5 83 20 97/54 93 I/O 12/03/16 12/03/16 12/03/16 12/04/16 12/04/16 12/04/16 07:00 15:00 23:00 07:00 15:00 23:00 Intake Total 240 ml 360 ml Output Total 250 ml 600 ml 200 ml Balance -10 ml -240 ml -200 ml Intake Oral 240 ml 360 ml Output Urine Total 250 ml 600 ml 200 ml # Voids 2 # Bowel Movements 0 0 0 Result Diagram: 12/04/16 0620 12/03/16 0735 Imaging Last Impressions Sinuses X-Ray 12/01/16 0000 Signed Impressions: Service Date/Time: Thursday, December 01, 2016 15:23 - CONCLUSION: Mucosal thickening at the left maxillary sinus. Cr Tay MD Chest X-Ray 12/01/16 0000 Signed Impressions: Service Date/Time: Thursday, December 01, 2016 15:31 - CONCLUSION: No acute cardiopulmonary abnormality is identified. Cr Payton MD Upper GI and Small Bowel X-Ray 11/28/16 0000 Signed Impressions: Service Date/Time: Monday, November 28, 2016 09:01 - CONCLUSION: No evidence of bowel obstruction. There is significantly slowed clearance of barium from the small bowel, still present within the small bowel at 6 hours. This may be related to pain control medication.. Ronna Silverio MD Abdomen/Pelvis CT 11/26/16 0000 Signed Impressions: Service Date/Time: Saturday, November 26, 2016 21:39 - CONCLUSION: 1. Mild proctitis/distal colitis in the proper clinical setting. Moderate stool throughout the colon. Nonobstructive pattern. 2. Food filled stomach with mild distention. Cr Rodriguez MD Abdomen X-Ray 11/25/16 0000 Signed Impressions: Service Date/Time: Friday, November 25, 2016 12:49 - CONCLUSION: Normal examination. Calvin Delgado MD Objective Remarks General: No acute distress. Heart: Regular rate and rhythm. No murmur. Lungs: Mild scattered wheeze. Breathing is nonlabored. Abdomen: Soft, nontender, nondistended. Back: Bilateral low back tenderness on exam. Extremities: No lower extremity edema. Psych: Alert and oriented. Procedures Cardiac cath s/p bare metal stent placement. EGD/Colonoscopy Urinary Catheter: No Vascular Central Line Catheter: No A/P Problem List: (1) NSTEMI (non-ST elevated myocardial infarction) ICD Code: I21.4 Status: Acute (2) Acute exacerbation of congestive heart failure ICD Code: I50.9 Status: Acute (3) VESNA (acute kidney injury) ICD Code: N17.9 Status: Resolved (4) CAD (coronary artery disease) ICD Code: I25.10 Status: Chronic (5) Hyperlipidemia ICD Code: E78.5 Status: Chronic (6) Hypotension ICD Code: I95.9 Status: Acute Assessment and Plan 1. Non-ST elevation CT: Status post cardiac catheterization with placement of bare metal stent of the LAD as well as angioplasty of the LAD on 11/13/16. Appreciate cardiology recommendations. Continue aspirin, metoprolol, lisinopril , statin, Prasugrel. Currently asymptomatic. 2. Acute exacerbation of chronic systolic congestive heart failure: Recent echocardiogram shows ejection fraction 45-50%. Continue Lasix, lisinopril. 3. Acute kidney injury: Resolved. 4. Chronic neck pain: Secondary to a fall many years ago. Continue Flexeril, oxycodone, gabapentin. 5. Abdominal pain: Appreciate GI recommendations. Status post EGD/colonoscopy, which showed colitis in the area of the rectum. Follow up as outpatient with GI. 6. Anxiety: Continue Xanax as needed. 7. Hypotension: BP still low. Will need to be very cautious with IV fluids due to history of CHF. 8. DVT prophylaxis: SCDs. 9. Dyspnea: Patient uses albuterol inhaler frequently as outpatient. Continue Duoneb as needed. Problem Qualifiers (1) Acute exacerbation of congestive heart failure: Qualified Code: I50.23 - Acute on chronic systolic congestive heart failure (2) CAD (coronary artery disease): Jean Paul Birmingham MD Dec 04, 2016 14:46
[2016-12-04] MEDS: ALBUTEROL SULFATE 90 MCG/ACT HFA 8 GM INHALER INH PRN (21:14)
[2016-12-05] VITALS: BP 93/55; PULSE 89; RESP 18; TEMP 98.1; O2SAT 95
[2016-12-05 04:00] VITALS: BP 91/50; PULSE 85; RESP 18; TEMP 98.2; O2SAT 91
[2016-12-05] MEDS: guaiFENesin/CODEINE SYRUP 200 MG/20 MG/10 ML CUP PO PRN ×3 (06:30→21:12)
[2016-12-05] MEDS: metroNIDAZOLE 500 MG TAB PO SCH ×3 (06:31→21:13)
[2016-12-05] MEDS: ISOSORBIDE MONONITRATE 30 MG TAB PO SCH (06:31)
[2016-12-05 08:00] VITALS: BP 92/51; PULSE 85; RESP 22; TEMP 99; O2SAT 94
[2016-12-05] MEDS: REMOVE OLD PATCH TD SCH (08:30)
[2016-12-05] MEDS: GABAPENTIN 400 MG CAP PO SCH ×3 (08:30→17:21)
[2016-12-05] MEDS: METOPROLOL TARTRATE 25 MG TAB PO SCH ×2 (08:30→21:00)
[2016-12-05] MEDS: ASPIRIN 81 MG CHEW TAB CHEW SCH (08:30)
[2016-12-05] MEDS: FUROSEMIDE 20 MG TAB PO SCH (08:30)
[2016-12-05] MEDS: LISINOPRIL 5 MG TAB PO SCH (08:30)
[2016-12-05] MEDS: PANTOPRAZOLE SOD 40 MG DELAYED RELEASE TAB PO SCH (08:30)
[2016-12-05] MEDS: NICOTINE 21 MG/24 HR PATCH TD SCH (08:30)
[2016-12-05] MEDS: FLUTICASONE PROPIONATE 50 MCG/ACT 16 GM NASAL SPRAY NASAL SCH ×2 (08:31→21:00)
[2016-12-05] MEDS: PRASUGREL 10 MG TAB PO SCH (08:31)
[2016-12-05] MEDS: SODIUM CHLORIDE 0.9% FLUSH 5 ML FLUSH FLUSH SCH ×2 (08:31→21:00)
[2016-12-05] MEDS: ATORVASTATIN 80 MG TAB PO SCH (08:31)
[2016-12-05] MEDS: CYCLOBENZAPRINE HCL 10 MG TAB PO PRN ×2 (08:33→21:22)
[2016-12-05] MEDS: ALPRAZolam 1 MG TAB PO PRN ×2 (08:33→21:22)
[2016-12-05 12:00] VITALS: BP 95/50; PULSE 77; RESP 20; TEMP 98.1; O2SAT 96
--- NOTE | 2016-12-05 14:46 | HHI.PR ---
Subjective Remarks Follow up hypotension. The patient reports decreased urine output. States that he is drinking a lot of water. Denies chest pain, dyspnea. Objective Vitals Vital Signs Date Time Temp Pulse Resp B/P Pulse Ox O2 Delivery O2 Flow Rate FiO2 12/05/16 09:41 Room Air 12/05/16 08:00 99.0 85 22 92/51 94 12/05/16 04:00 98.2 85 18 91/50 91 12/05/16 00:00 98.1 89 18 93/55 95 12/04/16 20:00 98.0 79 16 86/53 96 12/04/16 20:00 Room Air 12/04/16 20:00 80 12/04/16 16:00 97.7 82 20 81/48 96 I/O 12/04/16 12/04/16 12/04/16 12/05/16 12/05/16 12/05/16 07:00 15:00 23:00 07:00 15:00 23:00 Intake Total 360 ml 240 ml Output Total 200 ml Balance -200 ml 360 ml 240 ml Intake Oral 360 ml 240 ml Output Urine Total 200 ml # Voids 2 0 # Bowel Movements 0 0 Result Diagram: 12/04/16 0620 12/03/16 0735 Imaging Last Impressions Sinuses X-Ray 12/01/16 0000 Signed Impressions: Service Date/Time: Thursday, December 01, 2016 15:23 - CONCLUSION: Mucosal thickening at the left maxillary sinus. Cr Tay MD Chest X-Ray 12/01/16 0000 Signed Impressions: Service Date/Time: Thursday, December 01, 2016 15:31 - CONCLUSION: No acute cardiopulmonary abnormality is identified. Cr Payton MD Upper GI and Small Bowel X-Ray 11/28/16 0000 Signed Impressions: Service Date/Time: Monday, November 28, 2016 09:01 - CONCLUSION: No evidence of bowel obstruction. There is significantly slowed clearance of barium from the small bowel, still present within the small bowel at 6 hours. This may be related to pain control medication.. Ronna Silverio MD Abdomen/Pelvis CT 11/26/16 0000 Signed Impressions: Service Date/Time: Saturday, November 26, 2016 21:39 - CONCLUSION: 1. Mild proctitis/distal colitis in the proper clinical setting. Moderate stool throughout the colon. Nonobstructive pattern. 2. Food filled stomach with mild distention. Cr Rodriguez MD Abdomen X-Ray 11/25/16 0000 Signed Impressions: Service Date/Time: Friday, November 25, 2016 12:49 - CONCLUSION: Normal examination. Calvin Delgado MD Objective Remarks General: No acute distress. Heart: Regular rate and rhythm. No murmur. Lungs: Mild scattered wheeze. Breathing is nonlabored. Abdomen: Soft, nontender, mildly distended. Back: Bilateral low back tenderness on exam. Extremities: No lower extremity edema. Psych: Alert and oriented. Procedures Cardiac cath s/p bare metal stent placement. EGD/Colonoscopy Urinary Catheter: No Vascular Central Line Catheter: No A/P Problem List: (1) NSTEMI (non-ST elevated myocardial infarction) ICD Code: I21.4 Status: Acute (2) Acute exacerbation of congestive heart failure ICD Code: I50.9 Status: Acute (3) VESNA (acute kidney injury) ICD Code: N17.9 Status: Resolved (4) CAD (coronary artery disease) ICD Code: I25.10 Status: Chronic (5) Hyperlipidemia ICD Code: E78.5 Status: Chronic (6) Hypotension ICD Code: I95.9 Status: Acute Assessment and Plan 1. Non-ST elevation [place]: Status post cardiac catheterization with placement of bare metal stent of the LAD as well as angioplasty of the LAD on 11/13/16. Appreciate cardiology recommendations. Continue aspirin, metoprolol, lisinopril , statin, Prasugrel. Currently asymptomatic. 2. Acute exacerbation of chronic systolic congestive heart failure: Recent echocardiogram shows ejection fraction 45-50%. Continue Lasix, lisinopril. 3. Acute kidney injury: Resolved. 4. Chronic neck pain: Secondary to a fall many years ago. Continue Flexeril, oxycodone, gabapentin. 5. Abdominal pain: Appreciate GI recommendations. Status post EGD/colonoscopy. Follow up as outpatient with GI. 6. Anxiety: Continue Xanax as needed. 7. Hypotension: BP still low. Will need to be very cautious with IV fluids due to history of CHF. Encourage oral intake. 8. DVT prophylaxis: SCDs. 9. Dyspnea: Patient uses albuterol inhaler frequently as outpatient. Continue Duoneb as needed. 10. Constipation: Continue bowel regimen. Add daily Melissa-Colace. Problem Qualifiers (1) Acute exacerbation of congestive heart failure: Qualified Code: I50.23 - Acute on chronic systolic congestive heart failure (2) CAD (coronary artery disease): Jean Paul Birmingham MD Dec 05, 2016 14:46
[2016-12-05] MEDS: DOCUSATE SODIUM 50 MG/SENNA 8.6 MG TAB PO SCH (15:11)
[2016-12-05 16:00] VITALS: BP 82/51; PULSE 78; RESP 20; TEMP 97.6; O2SAT 92
[2016-12-05 20:00] VITALS: BP 92/55; PULSE 86; PULSE 88; RESP 20; TEMP 97.9; O2SAT 90
[2016-12-06] VITALS (7 sets, daily range): BP systolic 86–109; BP diastolic 47–67; PULSE 81–97; RESP 16–18; TEMP 97.6–98.8; O2SAT 90–97
[2016-12-06] MEDS: guaiFENesin/CODEINE SYRUP 200 MG/20 MG/10 ML CUP PO PRN ×3 (06:19→21:33)
[2016-12-06] MEDS: ISOSORBIDE MONONITRATE 30 MG TAB PO SCH (06:20)
[2016-12-06] MEDS: ALPRAZolam 1 MG TAB PO PRN ×2 (06:20→21:29)
[2016-12-06] MEDS: CYCLOBENZAPRINE HCL 10 MG TAB PO PRN ×3 (06:20→21:29)
[2016-12-06] MEDS: metroNIDAZOLE 500 MG TAB PO SCH ×3 (06:20→21:29)
[2016-12-06] MEDS: LISINOPRIL 5 MG TAB PO SCH (09:00)
[2016-12-06] MEDS: FUROSEMIDE 20 MG TAB PO SCH (09:00)
[2016-12-06] MEDS: GABAPENTIN 400 MG CAP PO SCH ×3 (09:58→18:11)
[2016-12-06] MEDS: ATORVASTATIN 80 MG TAB PO SCH (09:58)
[2016-12-06] MEDS: PRASUGREL 10 MG TAB PO SCH (09:59)
[2016-12-06] MEDS: DOCUSATE SODIUM 50 MG/SENNA 8.6 MG TAB PO SCH (09:59)
[2016-12-06] MEDS: ASPIRIN 81 MG CHEW TAB CHEW SCH (09:59)
[2016-12-06] MEDS: PANTOPRAZOLE SOD 40 MG DELAYED RELEASE TAB PO SCH (09:59)
[2016-12-06] MEDS: SODIUM CHLORIDE 0.9% FLUSH 5 ML FLUSH FLUSH SCH ×2 (10:00→21:31)
[2016-12-06] MEDS: REMOVE OLD PATCH TD SCH (10:00)
[2016-12-06] MEDS: FLUTICASONE PROPIONATE 50 MCG/ACT 16 GM NASAL SPRAY NASAL SCH ×2 (10:00→21:30)
[2016-12-06] MEDS: ALBUTEROL SULFATE 90 MCG/ACT HFA 8 GM INHALER INH PRN (10:00)
[2016-12-06] MEDS: NICOTINE 21 MG/24 HR PATCH TD SCH (10:00)
--- NOTE | 2016-12-06 13:25 | HHI.PR ---
Subjective Remarks Follow up hypotension. The patient states that he feels weak and tired. No chest pain, dyspnea, nausea, vomiting. Does feel lightheaded when he stands up. Objective Vitals Vital Signs Date Time Temp Pulse Resp B/P Pulse Ox O2 Delivery O2 Flow Rate FiO2 12/06/16 12:00 98.7 90 18 101/55 94 12/06/16 08:00 98.8 86 18 89/56 90 Manual Cuff/Palpation 12/06/16 08:00 Room Air 12/06/16 03:00 97.6 81 18 96/56 93 12/06/16 00:00 97.8 87 18 86/47 93 12/05/16 20:00 86 12/05/16 20:00 97.9 88 20 92/55 90 12/05/16 20:00 Room Air 12/05/16 16:00 97.6 78 20 82/51 92 I/O 12/05/16 12/05/16 12/05/16 12/06/16 12/06/16 12/06/16 07:00 15:00 23:00 07:00 15:00 23:00 Intake Total 240 ml 480 ml 680 ml Output Total 275 ml 400 ml Balance 240 ml 205 ml 280 ml Intake Oral 240 ml 480 ml 680 ml Output Urine Total 275 ml 400 ml # Voids 0 # Bowel Movements 0 0 Result Diagram: 12/04/16 0620 12/03/16 0735 Imaging Last Impressions Sinuses X-Ray 12/01/16 0000 Signed Impressions: Service Date/Time: Thursday, December 01, 2016 15:23 - CONCLUSION: Mucosal thickening at the left maxillary sinus. Cr Tay MD Chest X-Ray 12/01/16 0000 Signed Impressions: Service Date/Time: Thursday, December 01, 2016 15:31 - CONCLUSION: No acute cardiopulmonary abnormality is identified. Cr Payton MD Upper GI and Small Bowel X-Ray 11/28/16 0000 Signed Impressions: Service Date/Time: Monday, November 28, 2016 09:01 - CONCLUSION: No evidence of bowel obstruction. There is significantly slowed clearance of barium from the small bowel, still present within the small bowel at 6 hours. This may be related to pain control medication.. Ronna Silverio MD Abdomen/Pelvis CT 11/26/16 0000 Signed Impressions: Service Date/Time: Saturday, November 26, 2016 21:39 - CONCLUSION: 1. Mild proctitis/distal colitis in the proper clinical setting. Moderate stool throughout the colon. Nonobstructive pattern. 2. Food filled stomach with mild distention. Cr Rodriguez MD Abdomen X-Ray 11/25/16 0000 Signed Impressions: Service Date/Time: Friday, November 25, 2016 12:49 - CONCLUSION: Normal examination. Calvin Delgado MD Objective Remarks General: No acute distress. Heart: Regular rate and rhythm. No murmur. Lungs: Mild scattered wheeze. Breathing is nonlabored. Abdomen: Soft, nontender, mildly distended. Back: Bilateral low back tenderness on exam. Extremities: No lower extremity edema. Psych: Alert and oriented. Procedures Cardiac cath s/p bare metal stent placement. EGD/Colonoscopy Urinary Catheter: No Vascular Central Line Catheter: No A/P Problem List: (1) NSTEMI (non-ST elevated myocardial infarction) ICD Code: I21.4 Status: Acute (2) Acute exacerbation of congestive heart failure ICD Code: I50.9 Status: Acute (3) VESNA (acute kidney injury) ICD Code: N17.9 Status: Resolved (4) CAD (coronary artery disease) ICD Code: I25.10 Status: Chronic (5) Hyperlipidemia ICD Code: E78.5 Status: Chronic (6) Hypotension ICD Code: I95.9 Status: Acute Assessment and Plan 1. Non-ST elevation [place]: Status post cardiac catheterization with placement of bare metal stent of the LAD as well as angioplasty of the LAD on 11/13/16. Appreciate cardiology recommendations. Continue aspirin, metoprolol, lisinopril , statin, Prasugrel. Currently asymptomatic. 2. Acute exacerbation of chronic systolic congestive heart failure: Recent echocardiogram shows ejection fraction 45-50%. Lasix, lisinopril, metoprolol on hold secondary to low BP. 3. Acute kidney injury: Resolved. 4. Chronic neck pain: Secondary to a fall many years ago. Continue Flexeril, oxycodone, gabapentin. 5. Abdominal pain: Appreciate GI recommendations. Status post EGD/colonoscopy. Follow up as outpatient with GI. 6. Anxiety: Continue Xanax as needed. 7. Hypotension: BP still low. Will need to be very cautious with IV fluids due to history of CHF. Encourage oral intake. Check orthostatic vital signs. 8. DVT prophylaxis: SCDs. 9. Dyspnea: Patient uses albuterol inhaler frequently as outpatient. Continue Duoneb as needed. 10. Constipation: Continue bowel regimen. Add daily Melissa-Colace. Problem Qualifiers (1) Acute exacerbation of congestive heart failure: Qualified Code: I50.23 - Acute on chronic systolic congestive heart failure (2) CAD (coronary artery disease): Jean Paul Birmingham MD Dec 06, 2016 13:25
[2016-12-06] MEDS: MAGNESIUM HYDROXIDE SUSP 30 ML CUP PO PRN ×2 (16:06→22:25)
[2016-12-07] VITALS (9 sets, daily range): BP systolic 109–144; BP diastolic 56–76; PULSE 86–125; RESP 18–24; TEMP 97.6–98.2; O2SAT 92–99
[2016-12-07] MEDS: ISOSORBIDE MONONITRATE 30 MG TAB PO SCH (05:12)
[2016-12-07] MEDS: metroNIDAZOLE 500 MG TAB PO SCH ×3 (05:12→21:20)
[2016-12-07 08:07] LABS: HEMATOCRIT 33.9 % (39.0-51.0); MEAN CELL VOLUME 83.3 FL (80.0-100.0); MEAN CORPUSCULAR HEMOGLOBIN 27.6 PG (27.0-34.0); MEAN CORPUSCULAR HGB CONC 33.1 % (32.0-36.0); PLATELET COUNT 266 TH/MM3 (150-450); RED BLOOD COUNT 4.07 MIL/MM3 (4.50-5.90); RED CELL DISTRIBUTION WIDTH 15.8 % (11.6-17.2); REVIEW FLAG FINAL; WHITE BLOOD COUNT 9.9 TH/MM3 (4.0-11.0)
[2016-12-07] MEDS: ATORVASTATIN 80 MG TAB PO SCH (09:02)
[2016-12-07] MEDS: guaiFENesin/CODEINE SYRUP 200 MG/20 MG/10 ML CUP PO PRN ×3 (09:02→23:50)
[2016-12-07] MEDS: DOCUSATE SODIUM 50 MG/SENNA 8.6 MG TAB PO SCH (09:02)
[2016-12-07] MEDS: CYCLOBENZAPRINE HCL 10 MG TAB PO PRN ×2 (09:02→18:04)
[2016-12-07] MEDS: MAGNESIUM HYDROXIDE SUSP 30 ML CUP PO PRN ×2 (09:02→18:04)
[2016-12-07] MEDS: PANTOPRAZOLE SOD 40 MG DELAYED RELEASE TAB PO SCH (09:02)
[2016-12-07] MEDS: SODIUM CHLORIDE 0.9% FLUSH 5 ML FLUSH FLUSH SCH ×2 (09:03→21:20)
[2016-12-07] MEDS: ASPIRIN 81 MG CHEW TAB CHEW SCH (09:03)
[2016-12-07] MEDS: REMOVE OLD PATCH TD SCH (09:03)
[2016-12-07] MEDS: NICOTINE 21 MG/24 HR PATCH TD SCH (09:03)
[2016-12-07] MEDS: FLUTICASONE PROPIONATE 50 MCG/ACT 16 GM NASAL SPRAY NASAL SCH ×2 (09:04→21:00)
[2016-12-07] MEDS: GABAPENTIN 400 MG CAP PO SCH ×3 (09:04→18:04)
[2016-12-07] MEDS: PRASUGREL 10 MG TAB PO SCH (09:04)
--- NOTE | 2016-12-07 11:28 | HHI.PR ---
Subjective Remarks Follow up hypotension, weakness. Patient states that he cannot walk very far due to weakness. He also has some lightheadedness at times. Denies chest pain, dyspnea. Has mild abdominal discomfort. Objective Vitals Vital Signs Date Time Temp Pulse Resp B/P Pulse Ox O2 Delivery O2 Flow Rate FiO2 12/07/16 08:23 98.0 92 18 121/61 94 12/07/16 04:00 98.2 89 20 109/56 92 12/07/16 00:31 97.6 86 20 109/58 92 12/06/16 21:30 Room Air 12/06/16 20:05 97 12/06/16 20:00 97.9 90 18 109/67 97 12/06/16 16:00 98.2 85 16 91/52 95 89/55 101/59 12/06/16 12:00 98.7 90 18 101/55 94 I/O 12/06/16 12/06/16 12/06/16 12/07/16 12/07/16 12/07/16 07:00 15:00 23:00 07:00 15:00 23:00 Intake Total 600 ml 360 ml 242 ml Output Total 900 ml 400 ml Balance -300 ml -40 ml 242 ml Intake Oral 600 ml 360 ml 240 ml IV Total 2 ml Output Urine Total 900 ml 400 ml # Voids 1 # Bowel Movements 0 Result Diagram: 12/07/16 0725 12/03/16 0735 Imaging Last Impressions Sinuses X-Ray 12/01/16 0000 Signed Impressions: Service Date/Time: Thursday, December 01, 2016 15:23 - CONCLUSION: Mucosal thickening at the left maxillary sinus. Cr Tay MD Chest X-Ray 12/01/16 0000 Signed Impressions: Service Date/Time: Thursday, December 01, 2016 15:31 - CONCLUSION: No acute cardiopulmonary abnormality is identified. Cr Paytno MD Upper GI and Small Bowel X-Ray 11/28/16 0000 Signed Impressions: Service Date/Time: Monday, November 28, 2016 09:01 - CONCLUSION: No evidence of bowel obstruction. There is significantly slowed clearance of barium from the small bowel, still present within the small bowel at 6 hours. This may be related to pain control medication.. Ronna Silverio MD Abdomen/Pelvis CT 11/26/16 0000 Signed Impressions: Service Date/Time: Saturday, November 26, 2016 21:39 - CONCLUSION: 1. Mild proctitis/distal colitis in the proper clinical setting. Moderate stool throughout the colon. Nonobstructive pattern. 2. Food filled stomach with mild distention. Cr Rodriguez MD Abdomen X-Ray 11/25/16 0000 Signed Impressions: Service Date/Time: Friday, November 25, 2016 12:49 - CONCLUSION: Normal examination. Calvin Delgado MD Objective Remarks General: No acute distress. Heart: Regular rate and rhythm. No murmur. Lungs: Mild scattered wheeze. Breathing is nonlabored. Abdomen: Soft, mild tenderness in LLQ, mildly distended. Extremities: No lower extremity edema. Psych: Alert and oriented. Procedures Cardiac cath s/p bare metal stent placement. EGD/Colonoscopy Urinary Catheter: No Vascular Central Line Catheter: No A/P Problem List: (1) NSTEMI (non-ST elevated myocardial infarction) ICD Code: I21.4 Status: Acute (2) Acute exacerbation of congestive heart failure ICD Code: I50.9 Status: Acute (3) VESNA (acute kidney injury) ICD Code: N17.9 Status: Resolved (4) CAD (coronary artery disease) ICD Code: I25.10 Status: Chronic (5) Hyperlipidemia ICD Code: E78.5 Status: Chronic (6) Hypotension ICD Code: I95.9 Status: Acute Assessment and Plan 1. Non-ST elevation [place]: Status post cardiac catheterization with placement of bare metal stent of the LAD as well as angioplasty of the LAD on 11/13/16. Appreciate cardiology recommendations. Continue aspirin, metoprolol, lisinopril , statin, Prasugrel. Currently asymptomatic. 2. Acute exacerbation of chronic systolic congestive heart failure: Recent echocardiogram shows ejection fraction 45-50%. Lasix, lisinopril, metoprolol on hold secondary to low BP. 3. Acute kidney injury: Resolved. 4. Chronic neck pain: Secondary to a fall many years ago. Continue Flexeril, oxycodone, gabapentin. 5. Abdominal pain: Appreciate GI recommendations. Status post EGD/colonoscopy. Follow up as outpatient with GI. 6. Anxiety: Continue Xanax as needed. 7. Hypotension: Will need to be very cautious with IV fluids due to history of CHF. Encourage oral intake. BP improved today. 8. DVT prophylaxis: SCDs. 9. Dyspnea: Patient uses albuterol inhaler frequently as outpatient. Continue Duoneb as needed. 10. Constipation: Continue bowel regimen. 11. Generalized weakness: Continue physical therapy. Discharge Planning Case management assisting with discharge planning. No safe discharge at this time. Unable to find placement. PT recommending home with home health PT. Problem Qualifiers (1) Acute exacerbation of congestive heart failure: Qualified Code: I50.23 - Acute on chronic systolic congestive heart failure (2) CAD (coronary artery disease): Jean Paul Birmingham MD Dec 07, 2016 11:28
[2016-12-07] MEDS: ALPRAZolam 1 MG TAB PO PRN (23:50)
[2016-12-08] VITALS (7 sets, daily range): BP systolic 102–123; BP diastolic 60–71; PULSE 80–94; RESP 16–24; TEMP 97.2–99.2; O2SAT 92–100
[2016-12-08] MEDS: guaiFENesin/CODEINE SYRUP 200 MG/20 MG/10 ML CUP PO PRN ×2 (06:05→14:09)
[2016-12-08] MEDS: metroNIDAZOLE 500 MG TAB PO SCH ×3 (06:06→22:00)
[2016-12-08] MEDS: ISOSORBIDE MONONITRATE 30 MG TAB PO SCH (06:06)
[2016-12-08] MEDS: REMOVE OLD PATCH TD SCH (09:00)
[2016-12-08] MEDS: ASPIRIN 81 MG CHEW TAB CHEW SCH (09:14)
[2016-12-08] MEDS: DOCUSATE SODIUM 50 MG/SENNA 8.6 MG TAB PO SCH (09:14)
[2016-12-08] MEDS: GABAPENTIN 400 MG CAP PO SCH ×3 (09:14→17:41)
[2016-12-08] MEDS: ATORVASTATIN 80 MG TAB PO SCH (09:14)
[2016-12-08] MEDS: PRASUGREL 10 MG TAB PO SCH (09:15)
[2016-12-08] MEDS: PANTOPRAZOLE SOD 40 MG DELAYED RELEASE TAB PO SCH (09:15)
[2016-12-08] MEDS: NICOTINE 21 MG/24 HR PATCH TD SCH (09:15)
[2016-12-08] MEDS: FLUTICASONE PROPIONATE 50 MCG/ACT 16 GM NASAL SPRAY NASAL SCH ×2 (09:16→21:00)
--- NOTE | 2016-12-08 13:36 | HHI.PR ---
Subjective Remarks Follow up weakness. The patient reports bilateral "kidney pain". Also reports cough, shortness of breath, lightheadedness, dizziness. States that he can't even walk to the bathroom. He does seem confused today. He is complaining about having to be on oxygen all the time, however there is not even a nasal cannula tube connected in his room. Objective Vitals Vital Signs Date Time Temp Pulse Resp B/P Pulse Ox O2 Delivery O2 Flow Rate FiO2 12/08/16 12:00 97.6 91 17 103/61 92 12/08/16 08:02 94 12/08/16 08:00 97.8 85 16 102/60 92 12/08/16 08:00 Room Air 12/08/16 03:43 99.2 85 24 103/62 93 12/07/16 23:50 97.8 96 24 144/76 96 12/07/16 21:17 92 12/07/16 21:07 97.9 94 24 134/71 97 12/07/16 20:15 Room Air 12/07/16 16:33 98.2 109 18 143/70 99 I/O 12/07/16 12/07/16 12/07/16 12/08/16 12/08/16 12/08/16 07:00 15:00 23:00 07:00 15:00 23:00 Intake Total 242 ml 242 ml 120 ml Output Total 300 ml Balance 242 ml -300 ml 242 ml 120 ml Intake Oral 240 ml 240 ml 120 ml IV Total 2 ml 2 ml Output Urine Total 300 ml # Voids 1 2 4 # Bowel Movements 0 0 Result Diagram: 12/07/16 0725 Imaging Last Impressions Sinuses X-Ray 12/01/16 0000 Signed Impressions: Service Date/Time: Thursday, December 01, 2016 15:23 - CONCLUSION: Mucosal thickening at the left maxillary sinus. Cr Tay MD Chest X-Ray 12/01/16 0000 Signed Impressions: Service Date/Time: Thursday, December 01, 2016 15:31 - CONCLUSION: No acute cardiopulmonary abnormality is identified. Cr Payton MD Upper GI and Small Bowel X-Ray 11/28/16 0000 Signed Impressions: Service Date/Time: Monday, November 28, 2016 09:01 - CONCLUSION: No evidence of bowel obstruction. There is significantly slowed clearance of barium from the small bowel, still present within the small bowel at 6 hours. This may be related to pain control medication.. Ronna Silverio MD Abdomen/Pelvis CT 11/26/16 0000 Signed Impressions: Service Date/Time: Saturday, November 26, 2016 21:39 - CONCLUSION: 1. Mild proctitis/distal colitis in the proper clinical setting. Moderate stool throughout the colon. Nonobstructive pattern. 2. Food filled stomach with mild distention. Cr Rodriguez MD Abdomen X-Ray 11/25/16 0000 Signed Impressions: Service Date/Time: Friday, November 25, 2016 12:49 - CONCLUSION: Normal examination. Calvin Delgado MD Objective Remarks General: No acute distress. Heart: Regular rate and rhythm. No murmur. Lungs: Mild scattered wheeze. Breathing is nonlabored. Abdomen: Soft, nontender, mildly distended. Patient reported tenderness over the bilateral lower lumbar regions. Extremities: No lower extremity edema. Psych: Alert, somewhat confused. Procedures Cardiac cath s/p bare metal stent placement. EGD/Colonoscopy Urinary Catheter: No Vascular Central Line Catheter: No A/P Problem List: (1) NSTEMI (non-ST elevated myocardial infarction) ICD Code: I21.4 Status: Acute (2) Acute exacerbation of congestive heart failure ICD Code: I50.9 Status: Acute (3) VESNA (acute kidney injury) ICD Code: N17.9 Status: Resolved (4) CAD (coronary artery disease) ICD Code: I25.10 Status: Chronic (5) Hyperlipidemia ICD Code: E78.5 Status: Chronic (6) Hypotension ICD Code: I95.9 Status: Acute Assessment and Plan 1. Non-ST elevation [place]: Status post cardiac catheterization with placement of bare metal stent of the LAD as well as angioplasty of the LAD on 11/13/16. Appreciate cardiology recommendations. Continue aspirin, metoprolol, lisinopril , statin, Prasugrel. Currently asymptomatic. 2. Acute exacerbation of chronic systolic congestive heart failure: Recent echocardiogram shows ejection fraction 45-50%. Lasix, lisinopril, metoprolol on hold secondary to low BP. 3. Acute kidney injury: Resolved. 4. Chronic neck pain: Secondary to a fall many years ago. Continue Flexeril, oxycodone, gabapentin. 5. Abdominal pain: Appreciate GI recommendations. Status post EGD/colonoscopy. Follow up as outpatient with GI. 6. Anxiety: Continue Xanax as needed. 7. Hypotension: Will need to be very cautious with IV fluids due to history of CHF. Encourage oral intake. BP improved. 8. DVT prophylaxis: SCDs. 9. Dyspnea: Patient uses albuterol inhaler frequently as outpatient. Continue Duoneb as needed. 10. Constipation: Continue bowel regimen. 11. Generalized weakness: Continue physical therapy. Discharge Planning Case management assisting with discharge planning. No safe discharge at this time. Unable to find placement. PT recommending home with home health PT, which cannot be arranged at this time. May transfer to [facility] if no safe discharge plan can be arranged. Problem Qualifiers (1) Acute exacerbation of congestive heart failure: Qualified Code: I50.23 - Acute on chronic systolic congestive heart failure (2) CAD (coronary artery disease): Jean Paul Birmingham MD Dec 08, 2016 13:36
[2016-12-08] MEDS: ALPRAZolam 1 MG TAB PO PRN (16:45)
[2016-12-08] MEDS: SODIUM CHLORIDE 0.9% FLUSH 5 ML FLUSH FLUSH SCH (22:36)
[2016-12-09] VITALS (8 sets, daily range): BP systolic 93–129; BP diastolic 52–69; PULSE 77–93; RESP 16–18; TEMP 97.4–98.1; O2SAT 94–99
[2016-12-09] MEDS: ALPRAZolam 1 MG TAB PO PRN ×3 (00:21→20:41)
[2016-12-09] MEDS: CYCLOBENZAPRINE HCL 10 MG TAB PO PRN ×3 (00:21→20:41)
[2016-12-09] MEDS: ISOSORBIDE MONONITRATE 30 MG TAB PO SCH (06:32)
[2016-12-09] MEDS: metroNIDAZOLE 500 MG TAB PO SCH ×3 (06:32→20:42)
[2016-12-09] MEDS: REMOVE OLD PATCH TD SCH (09:00)
[2016-12-09] MEDS: NICOTINE 21 MG/24 HR PATCH TD SCH (09:45)
[2016-12-09] MEDS: ASPIRIN 81 MG CHEW TAB CHEW SCH (09:45)
[2016-12-09] MEDS: DOCUSATE SODIUM 50 MG/SENNA 8.6 MG TAB PO SCH (09:45)
[2016-12-09] MEDS: ATORVASTATIN 80 MG TAB PO SCH (09:46)
[2016-12-09] MEDS: SODIUM CHLORIDE 0.9% FLUSH 5 ML FLUSH FLUSH SCH ×2 (09:46→20:42)
[2016-12-09] MEDS: PRASUGREL 10 MG TAB PO SCH (09:46)
[2016-12-09] MEDS: GABAPENTIN 400 MG CAP PO SCH ×3 (09:46→18:32)
[2016-12-09] MEDS: PANTOPRAZOLE SOD 40 MG DELAYED RELEASE TAB PO SCH (09:46)
[2016-12-09] MEDS: FLUTICASONE PROPIONATE 50 MCG/ACT 16 GM NASAL SPRAY NASAL SCH ×2 (09:47→20:46)
[2016-12-09] MEDS: guaiFENesin/CODEINE SYRUP 200 MG/20 MG/10 ML CUP PO PRN ×2 (12:34→20:42)
--- NOTE | 2016-12-09 13:59 | HHI.PR ---
Subjective Remarks Follow up weakness. Patient states that he is still having pain in his back when he is standing up trying to brush his teeth. No chest pain or dyspnea. He does report constipation and is requesting a suppository. Objective Vitals Vital Signs Date Time Temp Pulse Resp B/P Pulse Ox O2 Delivery O2 Flow Rate FiO2 12/09/16 13:20 93 12/09/16 12:00 98.1 88 16 104/54 98 12/09/16 08:16 97 Nasal Cannula 2.00 12/09/16 08:00 97.8 81 16 96/58 95 12/09/16 04:00 97.7 77 18 93/52 94 12/09/16 00:00 98.0 78 18 109/67 98 12/08/16 20:40 Nasal Cannula 2.00 12/08/16 20:00 80 12/08/16 20:00 97.2 84 20 123/71 100 12/08/16 16:00 98.4 92 17 109/62 96 12/08/16 15:00 20 12/08/16 14:12 Nasal Cannula 3.00 12/08/16 14:07 93 21 I/O 12/08/16 12/08/16 12/08/16 12/09/16 12/09/16 12/09/16 07:00 15:00 23:00 07:00 15:00 23:00 Intake Total 120 ml 960 ml 480 ml 240 ml Balance 120 ml 960 ml 480 ml 240 ml Intake Oral 120 ml 960 ml 480 ml 240 ml # Voids 4 3 2 1 # Bowel Movements 0 0 0 0 Result Diagram: 12/07/16 0725 Imaging Last Impressions Sinuses X-Ray 12/01/16 0000 Signed Impressions: Service Date/Time: Thursday, December 01, 2016 15:23 - CONCLUSION: Mucosal thickening at the left maxillary sinus. Cr Tay MD Chest X-Ray 12/01/16 0000 Signed Impressions: Service Date/Time: Thursday, December 01, 2016 15:31 - CONCLUSION: No acute cardiopulmonary abnormality is identified. Cr Payton MD Upper GI and Small Bowel X-Ray 11/28/16 0000 Signed Impressions: Service Date/Time: Monday, November 28, 2016 09:01 - CONCLUSION: No evidence of bowel obstruction. There is significantly slowed clearance of barium from the small bowel, still present within the small bowel at 6 hours. This may be related to pain control medication.. Ronna Silverio MD Abdomen/Pelvis CT 11/26/16 0000 Signed Impressions: Service Date/Time: Saturday, November 26, 2016 21:39 - CONCLUSION: 1. Mild proctitis/distal colitis in the proper clinical setting. Moderate stool throughout the colon. Nonobstructive pattern. 2. Food filled stomach with mild distention. Cr Rodriguez MD Abdomen X-Ray 11/25/16 0000 Signed Impressions: Service Date/Time: Friday, November 25, 2016 12:49 - CONCLUSION: Normal examination. Calvin Delgado MD Objective Remarks General: No acute distress. Heart: Regular rate and rhythm. No murmur. Lungs: Mild scattered wheeze. Breathing is nonlabored. Abdomen: Soft, nontender, mildly distended. Extremities: No lower extremity edema. Psych: Alert, somewhat confused. Procedures Cardiac cath s/p bare metal stent placement. EGD/Colonoscopy Urinary Catheter: No Vascular Central Line Catheter: No A/P Problem List: (1) NSTEMI (non-ST elevated myocardial infarction) ICD Code: I21.4 Status: Acute (2) Acute exacerbation of congestive heart failure ICD Code: I50.9 Status: Acute (3) VESNA (acute kidney injury) ICD Code: N17.9 Status: Resolved (4) CAD (coronary artery disease) ICD Code: I25.10 Status: Chronic (5) Hyperlipidemia ICD Code: E78.5 Status: Chronic (6) Hypotension ICD Code: I95.9 Status: Acute Assessment and Plan Reviewed/updated 12/09/16. Dulcolax suppository for constipation. Continue PT. Awaiting safe discharge plan. 1. Non-ST elevation [place]: Status post cardiac catheterization with placement of bare metal stent of the LAD as well as angioplasty of the LAD on 11/13/16. Appreciate cardiology recommendations. Continue aspirin, metoprolol, lisinopril , statin, Prasugrel. Currently asymptomatic. 2. Acute exacerbation of chronic systolic congestive heart failure: Recent echocardiogram shows ejection fraction 45-50%. Lasix, lisinopril, metoprolol on hold secondary to low BP. 3. Acute kidney injury: Resolved. 4. Chronic neck pain: Secondary to a fall many years ago. Continue Flexeril, oxycodone, gabapentin. 5. Abdominal pain: Appreciate GI recommendations. Status post EGD/colonoscopy. Follow up as outpatient with GI. 6. Anxiety: Continue Xanax as needed. 7. Hypotension: Will need to be very cautious with IV fluids due to history of CHF. Encourage oral intake. BP improved. 8. DVT prophylaxis: SCDs. 9. Dyspnea: Patient uses albuterol inhaler frequently as outpatient. Continue Duoneb as needed. 10. Constipation: Continue bowel regimen. 11. Generalized weakness: Continue physical therapy. Discharge Planning Case management assisting with discharge planning. No safe discharge at this time. Unable to find placement. PT recommending home with home health PT, which cannot be arranged at this time. May transfer to [place] if no safe discharge plan can be arranged. Problem Qualifiers (1) Acute exacerbation of congestive heart failure: Qualified Code: I50.23 - Acute on chronic systolic congestive heart failure (2) CAD (coronary artery disease): Jean Paul Birmingham MD Dec 09, 2016 13:59
[2016-12-10] VITALS (7 sets, daily range): BP systolic 91–114; BP diastolic 52–69; PULSE 77–97; RESP 16–20; TEMP 97.4–98.3; O2SAT 94–98
[2016-12-10] MEDS: ISOSORBIDE MONONITRATE 30 MG TAB PO SCH (06:41)
[2016-12-10] MEDS: metroNIDAZOLE 500 MG TAB PO SCH ×3 (06:41→20:43)
[2016-12-10 06:46] LABS: HEMATOCRIT 33.5 % (39.0-51.0); MEAN CELL VOLUME 82.7 FL (80.0-100.0); MEAN CORPUSCULAR HEMOGLOBIN 27.4 PG (27.0-34.0); MEAN CORPUSCULAR HGB CONC 33.1 % (32.0-36.0); PLATELET COUNT 300 TH/MM3 (150-450); RED BLOOD COUNT 4.05 MIL/MM3 (4.50-5.90); RED CELL DISTRIBUTION WIDTH 15.4 % (11.6-17.2); REVIEW FLAG FINAL; WHITE BLOOD COUNT 7.6 TH/MM3 (4.0-11.0)
[2016-12-10] MEDS: REMOVE OLD PATCH TD SCH (09:00)
[2016-12-10] MEDS: ASPIRIN 81 MG CHEW TAB CHEW SCH (10:13)
[2016-12-10] MEDS: SODIUM CHLORIDE 0.9% FLUSH 5 ML FLUSH FLUSH SCH ×2 (10:13→21:00)
[2016-12-10] MEDS: DOCUSATE SODIUM 50 MG/SENNA 8.6 MG TAB PO SCH (10:14)
[2016-12-10] MEDS: PRASUGREL 10 MG TAB PO SCH (10:14)
[2016-12-10] MEDS: FLUTICASONE PROPIONATE 50 MCG/ACT 16 GM NASAL SPRAY NASAL SCH ×2 (10:14→21:00)
[2016-12-10] MEDS: ATORVASTATIN 80 MG TAB PO SCH (10:14)
[2016-12-10] MEDS: GABAPENTIN 400 MG CAP PO SCH ×3 (10:14→18:00)
[2016-12-10] MEDS: PANTOPRAZOLE SOD 40 MG DELAYED RELEASE TAB PO SCH (10:14)
[2016-12-10] MEDS: NICOTINE 21 MG/24 HR PATCH TD SCH (10:15)
[2016-12-10] MEDS: guaiFENesin/CODEINE SYRUP 200 MG/20 MG/10 ML CUP PO PRN (10:22)
--- NOTE | 2016-12-10 11:22 | HHI.PR ---
Subjective Remarks Follow up weakness. Patient still reporting constipation. One BM documented in last 24 hours. He reports no appetite. Denies nausea/vomiting. Objective Vitals Vital Signs Date Time Temp Pulse Resp B/P Pulse Ox O2 Delivery O2 Flow Rate FiO2 12/10/16 08:00 97.5 82 20 114/63 97 12/10/16 07:46 18 12/10/16 04:00 97.7 77 18 102/57 97 12/10/16 00:00 98.3 78 16 106/60 96 12/09/16 20:00 97.7 82 18 129/69 97 12/09/16 20:00 80 12/09/16 19:40 Nasal Cannula 2.00 12/09/16 16:00 97.4 79 16 109/62 99 12/09/16 13:20 93 12/09/16 12:00 98.1 88 16 104/54 98 I/O 12/09/16 12/09/16 12/09/16 12/10/16 12/10/16 12/10/16 07:00 15:00 23:00 07:00 15:00 23:00 Intake Total 240 ml 360 ml 360 ml 480 ml Balance 240 ml 360 ml 360 ml 480 ml Intake Oral 240 ml 360 ml 360 ml 480 ml # Voids 1 2 2 2 # Bowel Movements 0 1 0 0 Result Diagram: 12/10/16 0600 Imaging Last Impressions Sinuses X-Ray 12/01/16 0000 Signed Impressions: Service Date/Time: Thursday, December 01, 2016 15:23 - CONCLUSION: Mucosal thickening at the left maxillary sinus. Cr Tay MD Chest X-Ray 12/01/16 0000 Signed Impressions: Service Date/Time: Thursday, December 01, 2016 15:31 - CONCLUSION: No acute cardiopulmonary abnormality is identified. Cr Payton MD Upper GI and Small Bowel X-Ray 11/28/16 0000 Signed Impressions: Service Date/Time: Monday, November 28, 2016 09:01 - CONCLUSION: No evidence of bowel obstruction. There is significantly slowed clearance of barium from the small bowel, still present within the small bowel at 6 hours. This may be related to pain control medication.. Ronna Silverio MD Abdomen/Pelvis CT 11/26/16 0000 Signed Impressions: Service Date/Time: Saturday, November 26, 2016 21:39 - CONCLUSION: 1. Mild proctitis/distal colitis in the proper clinical setting. Moderate stool throughout the colon. Nonobstructive pattern. 2. Food filled stomach with mild distention. Cr Rodriguez MD Abdomen X-Ray 11/25/16 0000 Signed Impressions: Service Date/Time: Friday, November 25, 2016 12:49 - CONCLUSION: Normal examination. Calvin Delgado MD Objective Remarks General: No acute distress. Heart: Regular rate and rhythm. No murmur. Lungs: Mild scattered wheeze. Breathing is nonlabored. Abdomen: Soft, nontender, mildly distended. Extremities: No lower extremity edema. Psych: Alert, somewhat confused. Procedures Cardiac cath s/p bare metal stent placement. EGD/Colonoscopy Urinary Catheter: No Vascular Central Line Catheter: No A/P Problem List: (1) NSTEMI (non-ST elevated myocardial infarction) ICD Code: I21.4 Status: Acute (2) Acute exacerbation of congestive heart failure ICD Code: I50.9 Status: Acute (3) VESNA (acute kidney injury) ICD Code: N17.9 Status: Resolved (4) CAD (coronary artery disease) ICD Code: I25.10 Status: Chronic (5) Hyperlipidemia ICD Code: E78.5 Status: Chronic (6) Hypotension ICD Code: I95.9 Status: Acute Assessment and Plan Reviewed/updated 12/10/16. Add Miralax for constipation. Continue PT. Awaiting safe discharge plan. 1. Non-ST elevation [place]: Status post cardiac catheterization with placement of bare metal stent of the LAD as well as angioplasty of the LAD on 11/13/16. Appreciate cardiology recommendations. Continue aspirin, metoprolol, lisinopril , statin, Prasugrel. Currently asymptomatic. 2. Acute exacerbation of chronic systolic congestive heart failure: Recent echocardiogram shows ejection fraction 45-50%. Lasix, lisinopril, metoprolol on hold secondary to low BP. 3. Acute kidney injury: Resolved. 4. Chronic neck pain: Secondary to a fall many years ago. Continue Flexeril, oxycodone, gabapentin. 5. Abdominal pain: Appreciate GI recommendations. Status post EGD/colonoscopy. Follow up as outpatient with GI. 6. Anxiety: Continue Xanax as needed. 7. Hypotension: Will need to be very cautious with IV fluids due to history of CHF. Encourage oral intake. BP improved. 8. DVT prophylaxis: SCDs. 9. Dyspnea: Patient uses albuterol inhaler frequently as outpatient. Continue Duoneb as needed. 10. Constipation: Continue bowel regimen. 11. Generalized weakness: Continue physical therapy. Discharge Planning Case management assisting with discharge planning. No safe discharge at this time. Unable to find placement. PT recommending home with home health PT, which cannot be arranged at this time. May transfer to [place] if no safe discharge plan can be arranged. Problem Qualifiers (1) Acute exacerbation of congestive heart failure: Qualified Code: I50.23 - Acute on chronic systolic congestive heart failure (2) CAD (coronary artery disease): Jean Paul Birmingham MD Dec 10, 2016 11:22
[2016-12-10] MEDS: ALPRAZolam 1 MG TAB PO PRN ×2 (13:24→20:44)
[2016-12-10] MEDS ORDERED: POLYETHYLENE GLYCOL 17 GM PKG PO PRN (14:00)
[2016-12-11] VITALS (9 sets, daily range): BP systolic 94–123; BP diastolic 53–75; PULSE 79–96; RESP 16–20; TEMP 97.3–98.5; O2SAT 20–98
[2016-12-11] MEDS: ISOSORBIDE MONONITRATE 30 MG TAB PO SCH (06:39)
[2016-12-11] MEDS: metroNIDAZOLE 500 MG TAB PO SCH (06:39)
[2016-12-11 07:21] LABS: BICARBONATE 27.6 MEQ/L (21.0-32.0); POTASSIUM 4.3 MEQ/L (3.5-5.1)
[2016-12-11] MEDS: REMOVE OLD PATCH TD SCH (09:00)
[2016-12-11] MEDS: ASPIRIN 81 MG CHEW TAB CHEW SCH (09:23)
[2016-12-11] MEDS: SODIUM CHLORIDE 0.9% FLUSH 5 ML FLUSH FLUSH SCH ×2 (09:23→20:33)
[2016-12-11] MEDS: FLUTICASONE PROPIONATE 50 MCG/ACT 16 GM NASAL SPRAY NASAL SCH ×2 (09:23→20:34)
[2016-12-11] MEDS: DOCUSATE SODIUM 50 MG/SENNA 8.6 MG TAB PO SCH (09:24)
[2016-12-11] MEDS: PANTOPRAZOLE SOD 40 MG DELAYED RELEASE TAB PO SCH (09:24)
[2016-12-11] MEDS: ATORVASTATIN 80 MG TAB PO SCH (09:24)
[2016-12-11] MEDS: NICOTINE 21 MG/24 HR PATCH TD SCH (09:24)
[2016-12-11] MEDS: GABAPENTIN 400 MG CAP PO SCH ×3 (09:24→17:20)
[2016-12-11] MEDS: PRASUGREL 10 MG TAB PO SCH (09:24)
[2016-12-11] MEDS: ALPRAZolam 1 MG TAB PO PRN (09:28)
[2016-12-11] MEDS: MAGNESIUM HYDROXIDE SUSP 30 ML CUP PO PRN (09:29)
[2016-12-11] MEDS ORDERED: MAGNESIUM CITRATE SOLN 300 ML BTL PO ONE (12:00)
--- NOTE | 2016-12-11 13:00 | HHI.PR ---
Subjective Remarks Follow-up for constipation, shortness of breath Shortness of breath a lot better, improved from before. Has been urinating well. No bowel movement for 1 week allegedly, passing gas, no abdominal pain, mild nausea but no vomiting. Patient seems to not want to go home, he says that brothers coming Saturday to pick him up. Walk patient around the room, he was able to walk, stable on his feet with a walker. Objective Vitals Vital Signs Date Time Temp Pulse Resp B/P Pulse Ox O2 Delivery O2 Flow Rate FiO2 12/11/16 12:00 98.1 84 20 102/57 98 12/11/16 09:54 91 Nasal Cannula 2.00 12/11/16 08:02 20 12/11/16 08:00 97.9 86 20 113/68 91 12/11/16 04:00 97.3 79 16 97/53 96 12/11/16 00:00 97.9 83 16 123/67 97 12/10/16 20:30 98.0 93 16 91/52 94 12/10/16 20:08 97 12/10/16 20:00 Room Air 12/10/16 16:00 97.4 86 20 112/69 98 I/O 12/10/16 12/10/16 12/10/16 12/11/16 12/11/16 12/11/16 07:00 15:00 23:00 07:00 15:00 23:00 Intake Total 480 ml 720 ml 360 ml Output Total 300 ml 200 ml 400 ml Balance 480 ml 420 ml 160 ml -400 ml Intake Oral 480 ml 720 ml 360 ml IV Total 0 ml Output Urine Total 300 ml 200 ml 400 ml # Voids 2 3 # Bowel Movements 0 0 Result Diagram: 12/10/16 0600 12/11/16 0605 Objective Remarks General: No acute distress. Heart: Regular rate and rhythm. No murmur. Lungs: No wheezing, clear breath sounds. Abdomen: Soft, nontender, mildly distended. Extremities: No lower extremity edema. Alert, awake, oriented 3, no focal deficits, ambulating with a walker. Procedures Cardiac cath s/p bare metal stent placement. EGD/Colonoscopy A/P Problem List: (1) NSTEMI (non-ST elevated myocardial infarction) ICD Code: I21.4 Status: Acute (2) Acute exacerbation of congestive heart failure ICD Code: I50.9 Status: Acute (3) VESNA (acute kidney injury) ICD Code: N17.9 Status: Resolved (4) CAD (coronary artery disease) ICD Code: I25.10 Status: Chronic (5) Hyperlipidemia ICD Code: E78.5 Status: Chronic (6) Hypotension ICD Code: I95.9 Status: Acute Assessment and Plan 1. Non-ST elevation [place]: Status post cardiac catheterization with placement of bare metal stent of the LAD as well as angioplasty of the LAD on 11/13/16. Appreciate cardiology recommendations. Continue aspirin, metoprolol, lisinopril , statin, Prasugrel. Currently asymptomatic. 2. Acute exacerbation of chronic systolic congestive heart failure: Recent echocardiogram shows ejection fraction 45-50%. Lasix, lisinopril, metoprolol on hold secondary to low BP. Better. 3. Acute kidney injury: Resolved. 4. Chronic neck pain: Secondary to a fall many years ago. Continue Flexeril, oxycodone, gabapentin. 5. Abdominal pain: Appreciate GI recommendations. Status post EGD/colonoscopy. Follow up as outpatient with GI. 6. Anxiety: Continue Xanax as needed. 7. Hypotension: Will need to be very cautious with IV fluids due to history of CHF. Encourage oral intake. BP improved. 8. DVT prophylaxis: SCDs. 9. Dyspnea: Patient uses albuterol inhaler frequently as outpatient. Continue Duoneb as needed. 10. Constipation: Continue bowel regimen. We'll give magnesium citrate today. 11. Generalized weakness: Continue physical therapy. Standby assist, sometimes not cooperating with physical therapy, I personally saw the patient walk with a walker. Per patient, brother can pick him up on Saturday. He agreed to that he can stay in a hotel. Discharge after a good bowel movement. Addendum: Had an unwitnessed fall. Blood pressure soft. Patient seen again, has a headache, has a forehead hematoma on the right side, mildly nauseated but no vomiting. Also complaining of right hip pain. Stop Flexeril, decrease Xanax, decreased oxycodone, stop Percocet as needed. Restart metoprolol low dose and Lasix with holding parameters. Recheck BMP and BNP tomorrow. Neurochecks. Check right hip x-ray and CT scan of the head. Discussed with RN. Problem Qualifiers (1) Acute exacerbation of congestive heart failure: Qualified Code: I50.23 - Acute on chronic systolic congestive heart failure (2) CAD (coronary artery disease): Sofie Chisholm MD Dec 11, 2016 13:00
[2016-12-11] MEDS ORDERED: NEUR400C PO (13:05)
[2016-12-11] MEDS ORDERED: ISOS30TA3 PO (13:05)
[2016-12-11] MEDS ORDERED: LIPI80TA PO (13:05)
[2016-12-11] MEDS ORDERED: FLUT50SP NASAL (13:05)
[2016-12-11] MEDS ORDERED: FURO20TA PO (13:05)
--- NOTE | 2016-12-11 15:59 | RADRPT ---
EXAM DATE/TIME: 12/11/2016 15:51 [facility] COMPARISON: No previous studies available for comparison. INDICATIONS : Slip and fall and hit forehead in bathroom. Headache. RADIATION DOSE: 39.07 CTDIvol (mGy) MEDICAL HISTORY : Cerebrovascular disease. Cardiovascular disease SURGICAL HISTORY : CABG ENCOUNTER: Subsequent ACUITY: 1 day PAIN SCALE: 3/10 LOCATION: cranial TECHNIQUE: Multiple contiguous axial images were obtained of the head. Using automated exposure control and adj ustment of the mA and/or kV according to patient size, radiation dose was kept as low as reasonably a chievable to obtain optimal diagnostic quality images. FINDINGS: CEREBRUM: The ventricles are normal for age. No evidence of midline shift, mass lesion, hemorrhage or acute in farction. No extra-axial fluid collections are seen. POSTERIOR FOSSA: The cerebellum and brainstem are intact. The 4th ventricle is midline. The cerebellopontine angle i s unremarkable. EXTRACRANIAL: The visualized portion of the orbits is intact. SKULL: The calvaria is intact. No evidence of skull fracture. CONCLUSION: Normal examination. Calvin Delgado MD on December 11, 2016 at 15:57 Board Certified Radiologist. This report was verified electronically.
[2016-12-11] MEDS: guaiFENesin/CODEINE SYRUP 200 MG/20 MG/10 ML CUP PO PRN (17:20)
[2016-12-11] MEDS: METOPROLOL TARTRATE 25 MG TAB PO SCH (20:32)
[2016-12-11] MEDS: ALPRAZolam 0.25 MG TAB PO PRN (20:33)
[2016-12-12] VITALS (11 sets, daily range): BP systolic 90–133; BP diastolic 53–91; PULSE 69–90; RESP 17–22; TEMP 96.7–98.2; O2SAT 94–99
[2016-12-12] MEDS: guaiFENesin/CODEINE SYRUP 200 MG/20 MG/10 ML CUP PO PRN ×3 (00:04→17:15)
[2016-12-12] MEDS: ISOSORBIDE MONONITRATE 30 MG TAB PO SCH (06:20)
[2016-12-12 08:27] LABS: BICARBONATE 28.9 MEQ/L (21.0-32.0); POTASSIUM 4.1 MEQ/L (3.5-5.1)
[2016-12-12] MEDS: ALPRAZolam 0.25 MG TAB PO PRN ×2 (08:39→17:15)
[2016-12-12] MEDS: NICOTINE 21 MG/24 HR PATCH TD SCH (08:41)
[2016-12-12] MEDS: DOCUSATE SODIUM 50 MG/SENNA 8.6 MG TAB PO SCH (08:41)
[2016-12-12] MEDS: GABAPENTIN 400 MG CAP PO SCH ×3 (08:41→17:10)
[2016-12-12] MEDS: PRASUGREL 10 MG TAB PO SCH (08:41)
[2016-12-12] MEDS: ASPIRIN 81 MG CHEW TAB CHEW SCH (08:41)
[2016-12-12] MEDS: REMOVE OLD PATCH TD SCH (08:41)
[2016-12-12] MEDS: PANTOPRAZOLE SOD 40 MG DELAYED RELEASE TAB PO SCH (08:41)
[2016-12-12] MEDS: ATORVASTATIN 80 MG TAB PO SCH (08:41)
[2016-12-12] MEDS: FUROSEMIDE 20 MG TAB PO SCH (08:41)
[2016-12-12] MEDS: SODIUM CHLORIDE 0.9% FLUSH 5 ML FLUSH FLUSH SCH ×2 (08:42→21:02)
[2016-12-12] MEDS: METOPROLOL TARTRATE 25 MG TAB PO SCH ×2 (08:42→21:18)
[2016-12-12] MEDS: FLUTICASONE PROPIONATE 50 MCG/ACT 16 GM NASAL SPRAY NASAL SCH ×2 (08:46→21:18)
--- NOTE | 2016-12-12 13:54 | HHI.PR ---
Subjective Remarks Follow-up for shortness of breath, weakness Patient's of generalized weakness, fell yesterday, will walk with physical therapy and see any today. Patient is complaining that he has more pain because the Roxicodone was decreased. I told him that he probably is quite unsteady on his feet, sleepy and dizzy because of high doses of narcotics. Objective Vitals Vital Signs Date Time Temp Pulse Resp B/P Pulse Ox O2 Delivery O2 Flow Rate FiO2 12/12/16 12:07 97.7 72 22 95/53 99 12/12/16 11:41 Nasal Cannula 2.00 21 12/12/16 10:44 96 Nasal Cannula 2.00 12/12/16 08:08 98.0 90 22 133/79 95 12/12/16 04:00 97.7 83 20 90/58 96 12/12/16 00:00 97.3 81 20 131/72 95 12/11/16 20:00 97.8 92 20 116/66 96 12/11/16 20:00 Room Air 12/11/16 18:02 96 Nasal Cannula 2.00 12/11/16 17:19 18 12/11/16 16:00 81 12/11/16 16:00 98.0 96 18 94/58 96 12/11/16 14:00 97.5 94 18 116/75 95 I/O 12/11/16 12/11/16 12/11/16 12/12/16 12/12/16 12/12/16 07:00 15:00 23:00 07:00 15:00 23:00 Intake Total 480 ml 380 ml 220 ml Output Total 400 ml 500 ml 500 ml Balance -400 ml 480 ml -120 ml -280 ml Intake Oral 480 ml 380 ml 220 ml IV Total 0 ml Output Urine Total 400 ml 500 ml 500 ml # Voids 3 # Bowel Movements 1 0 0 Result Diagram: 12/10/16 0600 12/12/16 0714 Objective Remarks General: No acute distress. Heart: Regular rate and rhythm. No murmur. Lungs: No wheezing, clear breath sounds. Abdomen: Soft, nontender, mildly distended. Extremities: No lower extremity edema. Alert, awake, oriented 3, no focal deficits, ambulating with a walker. Procedures Cardiac cath s/p bare metal stent placement. EGD/Colonoscopy A/P Problem List: (1) NSTEMI (non-ST elevated myocardial infarction) ICD Code: I21.4 Status: Acute (2) Acute exacerbation of congestive heart failure ICD Code: I50.9 Status: Acute (3) VESNA (acute kidney injury) ICD Code: N17.9 Status: Resolved (4) CAD (coronary artery disease) ICD Code: I25.10 Status: Chronic (5) Hyperlipidemia ICD Code: E78.5 Status: Chronic (6) Hypotension ICD Code: I95.9 Status: Acute Assessment and Plan 1. Non-ST elevation [place]: Status post cardiac catheterization with placement of bare metal stent of the LAD as well as angioplasty of the LAD on 11/13/16. Appreciate cardiology recommendations. Continue aspirin, metoprolol, lisinopril , statin, Prasugrel. Currently asymptomatic. 2. Acute exacerbation of chronic systolic congestive heart failure: Recent echocardiogram shows ejection fraction 45-50%. Restart Lasix, and metoprolol, lisinopril on hold secondary to low BP. Better. Recheck BMP tomorrow. 3. Acute kidney injury: Resolved. 4. Chronic neck pain: Secondary to a fall many years ago. Continue Flexeril, oxycodone, gabapentin. 5. Abdominal pain: Appreciate GI recommendations. Status post EGD/colonoscopy. Follow up as outpatient with GI. 6. Anxiety: Continue Xanax as needed. 7. Hypotension: Will need to be very cautious with IV fluids due to history of CHF. Encourage oral intake. BP improved. 8. DVT prophylaxis: SCDs. 9. Dyspnea: Patient uses albuterol inhaler frequently as outpatient. Continue Duoneb as needed. 10. Constipation: Continue bowel regimen. We'll give magnesium citrate today. 11. Generalized weakness: Continue physical therapy. PT daily, PUBLIC HEALTH AIDE and RN to walk patient too daily. Stopped Flexeril, decreased Xanax, decreased oxycodone, stop Percocet as needed. Right hip x-ray and CT scan of the head personally reviewed and are negative. Discharge Planning Discharge when patient more stable ambulating. Problem Qualifiers (1) Acute exacerbation of congestive heart failure: Qualified Code: I50.23 - Acute on chronic systolic congestive heart failure (2) CAD (coronary artery disease): Sofie Chisholm MD Dec 12, 2016 13:54
[2016-12-13] VITALS (8 sets, daily range): BP systolic 103–128; BP diastolic 62–86; PULSE 78–97; RESP 16–20; TEMP 97.4–98.6; O2SAT 93–97
[2016-12-13] MEDS: ALPRAZolam 0.25 MG TAB PO PRN ×3 (00:04→18:06)
[2016-12-13] MEDS: guaiFENesin/CODEINE SYRUP 200 MG/20 MG/10 ML CUP PO PRN ×2 (00:04→12:54)
[2016-12-13] MEDS: ISOSORBIDE MONONITRATE 30 MG TAB PO SCH (06:39)
[2016-12-13] MEDS: ONDANSETRON HCL 4 MG/2 ML VIAL IV PRN (06:45)
[2016-12-13 07:26] LABS: BICARBONATE 27.6 MEQ/L (21.0-32.0)
[2016-12-13] MEDS: METOPROLOL TARTRATE 25 MG TAB PO SCH ×2 (08:50→21:59)
[2016-12-13] MEDS: ASPIRIN 81 MG CHEW TAB CHEW SCH (08:51)
[2016-12-13] MEDS: PRASUGREL 10 MG TAB PO SCH (08:51)
[2016-12-13] MEDS: FUROSEMIDE 20 MG TAB PO SCH ×2 (08:51→21:59)
[2016-12-13] MEDS: DOCUSATE SODIUM 50 MG/SENNA 8.6 MG TAB PO SCH (08:51)
[2016-12-13] MEDS: PANTOPRAZOLE SOD 40 MG DELAYED RELEASE TAB PO SCH (08:51)
[2016-12-13] MEDS: REMOVE OLD PATCH TD SCH (08:51)
[2016-12-13] MEDS: GABAPENTIN 400 MG CAP PO SCH ×3 (08:51→18:06)
[2016-12-13] MEDS: ATORVASTATIN 80 MG TAB PO SCH (08:51)
[2016-12-13] MEDS: FLUTICASONE PROPIONATE 50 MCG/ACT 16 GM NASAL SPRAY NASAL SCH ×2 (08:52→21:00)
[2016-12-13] MEDS: NICOTINE 21 MG/24 HR PATCH TD SCH (08:52)
--- NOTE | 2016-12-13 09:55 | HHI.PR ---
Subjective Remarks Follow-up for shortness of breath No significant pain today, ambulated several times yesterday. Shortness of breath about the same. Not a lot of urine output. Objective Vitals Vital Signs Date Time Temp Pulse Resp B/P Pulse Ox O2 Delivery O2 Flow Rate FiO2 12/13/16 06:15 Room Air 12/13/16 04:00 97.4 82 18 103/62 97 12/13/16 00:01 98.2 80 17 126/71 95 12/12/16 20:44 96 Nasal Cannula 2.00 12/12/16 20:00 98.2 69 18 118/91 96 12/12/16 20:00 Room Air 12/12/16 19:31 96.7 90 18 113/79 94 12/12/16 16:40 97.9 72 17 102/62 96 12/12/16 16:05 97.9 86 20 118/67 95 12/12/16 12:07 97.7 72 22 95/53 99 12/12/16 11:41 Nasal Cannula 2.00 21 12/12/16 10:44 96 Nasal Cannula 2.00 I/O 12/12/16 12/12/16 12/12/16 12/13/16 12/13/16 12/13/16 07:00 15:00 23:00 07:00 15:00 23:00 Intake Total 220 ml 480 ml 500 ml 250 ml Output Total 500 ml 600 ml 450 ml 200 ml Balance -280 ml -120 ml 50 ml 50 ml Intake Oral 220 ml 480 ml 500 ml 250 ml Output Urine Total 500 ml 600 ml 450 ml 200 ml # Bowel Movements 0 0 Result Diagram: 12/10/16 0600 12/13/16 0606 Objective Remarks General: No acute distress. Heart: Regular rate and rhythm. No murmur. Lungs: Occasional wheezing on the right Abdomen soft, nontender Extremities: No lower extremity edema. Alert, awake, oriented 3, no focal deficits, ambulating with a walker. Procedures Cardiac cath s/p bare metal stent placement. EGD/Colonoscopy A/P Problem List: (1) NSTEMI (non-ST elevated myocardial infarction) ICD Code: I21.4 Status: Acute (2) Acute exacerbation of congestive heart failure ICD Code: I50.9 Status: Acute (3) VESNA (acute kidney injury) ICD Code: N17.9 Status: Resolved (4) CAD (coronary artery disease) ICD Code: I25.10 Status: Chronic (5) Hyperlipidemia ICD Code: E78.5 Status: Chronic (6) Hypotension ICD Code: I95.9 Status: Acute Assessment and Plan 1. Non-ST elevation [place]: Status post cardiac catheterization with placement of bare metal stent of the LAD as well as angioplasty of the LAD on 11/13/16. Appreciate cardiology recommendations. Continue aspirin, metoprolol, lisinopril , statin, Prasugrel. Currently asymptomatic. 2. Acute exacerbation of chronic systolic congestive heart failure: Recent echocardiogram shows ejection fraction 45-50%. Increase Lasix to twice a day, will give an extra dose today, recheck BMP tomorrow. Continue metoprolol, lisinopril on hold secondary to low BP. Better. Recheck BMP tomorrow. 3. Acute kidney injury: Resolved. Check BMP tomorrow. 4. Chronic neck pain: Secondary to a fall many years ago. Continue Flexeril, oxycodone, gabapentin. 5. Abdominal pain: Appreciate GI recommendations. Status post EGD/colonoscopy. Follow up as outpatient with GI. 6. Anxiety: Continue Xanax as needed. 7. Hypotension: Will need to be very cautious with IV fluids due to history of CHF. Encourage oral intake. BP improved. 8. DVT prophylaxis: SCDs. 9. Dyspnea: Patient uses albuterol inhaler frequently as outpatient. Continue Duoneb as needed. 10. Constipation: Continue bowel regimen. We'll give magnesium citrate today. 11. Generalized weakness: Continue physical therapy. PT daily, COMMISSARY ASSISTANT and RN to walk patient too daily. Stopped Flexeril, decreased Xanax, decreased oxycodone, stop Percocet as needed. Right hip x-ray and CT scan of the head personally reviewed and are negative. Discharge Planning Discharge when patient more stable ambulating. Problem Qualifiers (1) Acute exacerbation of congestive heart failure: Qualified Code: I50.23 - Acute on chronic systolic congestive heart failure (2) CAD (coronary artery disease): Sofie Chisholm MD Dec 13, 2016 09:55
[2016-12-13] MEDS ORDERED: FUROSEMIDE 20 MG TAB PO ONE (13:00)
[2016-12-13] MEDS: SODIUM CHLORIDE 0.9% FLUSH 5 ML FLUSH FLUSH SCH (22:00)
[2016-12-14] VITALS: BP 104/68; PULSE 80; RESP 20; TEMP 98.1; O2SAT 94
[2016-12-14] MEDS: ALPRAZolam 0.25 MG TAB PO PRN (02:35)
[2016-12-14 04:00] VITALS: BP 124/70; PULSE 86; RESP 20; TEMP 97.2; O2SAT 94
[2016-12-14] MEDS: ISOSORBIDE MONONITRATE 30 MG TAB PO SCH (06:33)
[2016-12-14] MEDS: ONDANSETRON HCL 4 MG/2 ML VIAL IV PRN (06:46)
[2016-12-14 08:00] VITALS: BP 121/91; PULSE 81; RESP 18; TEMP 97.9; O2SAT 95
[2016-12-14] MEDS: ASPIRIN 81 MG CHEW TAB CHEW SCH (08:43)
[2016-12-14] MEDS: ATORVASTATIN 80 MG TAB PO SCH (08:44)
[2016-12-14] MEDS: PRASUGREL 10 MG TAB PO SCH (08:44)
[2016-12-14] MEDS: REMOVE OLD PATCH TD SCH (08:44)
[2016-12-14] MEDS: NICOTINE 21 MG/24 HR PATCH TD SCH (08:44)
[2016-12-14] MEDS: DOCUSATE SODIUM 50 MG/SENNA 8.6 MG TAB PO SCH (08:44)
[2016-12-14] MEDS: METOPROLOL TARTRATE 25 MG TAB PO SCH (08:44)
[2016-12-14] MEDS: FUROSEMIDE 20 MG TAB PO SCH (08:44)
[2016-12-14] MEDS: PANTOPRAZOLE SOD 40 MG DELAYED RELEASE TAB PO SCH (08:44)
[2016-12-14] MEDS: GABAPENTIN 400 MG CAP PO SCH ×2 (08:44→12:40)
[2016-12-14 08:48] VITALS: RESP 20
[2016-12-14] MEDS: FLUTICASONE PROPIONATE 50 MCG/ACT 16 GM NASAL SPRAY NASAL SCH (08:48)
[2016-12-14 10:10] LABS: BICARBONATE 29.4 MEQ/L (21.0-32.0)
[2016-12-14] MEDS ORDERED: FURO20TA PO (11:34)
[2016-12-14] MEDS ORDERED: PRAS10TA PO (11:34)
[2016-12-14] MEDS ORDERED: HYDR-3535 PO (11:34)
[2016-12-14] MEDS ORDERED: METO25TA3 PO (11:34)
[2016-12-14] MEDS ORDERED: LISI-519 PO (11:34)
--- NOTE | 2016-12-14 11:36 | HHI.DS ---
Discharge Summary Admission Date Nov 22, 2016 at 05:00 Discharge Date: Dec 14, 2016 Admitting Diagnosis NSTEMI (1) NSTEMI (non-ST elevated myocardial infarction) ICD Code: I21.4 Diagnosis: Principal (2) Acute exacerbation of congestive heart failure ICD Code: I50.9 Diagnosis: Principal (3) VESNA (acute kidney injury) ICD Code: N17.9 Diagnosis: Secondary (4) CAD (coronary artery disease) ICD Code: I25.10 Diagnosis: Secondary (5) Hyperlipidemia ICD Code: E78.5 Diagnosis: Secondary (6) Hypotension ICD Code: I95.9 Diagnosis: Secondary Procedures Cardiac cath s/p bare metal stent placement. EGD/Colonoscopy Brief History - From Admission This is a 61-year-old male with history of coronary artery disease, CABG, status post previous stenting in the past presenting with chest pain. Of note, patient was admitted recently, about a week ago for unstable angina, patient was Low, status post bare-metal stenting of the LAD and PTCA of the proximal LAD. Patient has been fine until yesterday when he started having severe 10 over 10 chest pain while walking, described as pressure, radiating to the jaw, associated with nausea and diaphoresis but no vomiting. Has been went away after one to 2 hours. Chest pain right now is mild, about 4/10. Patient also has a cough, productive with clear sputum but no fever or chills. Patient was monitored short of breath yesterday but this has resolved. 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 bettencourt. CBC/BMP: 12/10/16 0600 12/14/16 0910 Significant Findings Laboratory Tests Test 12/12/16 12/13/16 12/14/16 07:14 06:06 09:10 Estimat Glomerular Filtration 84 ML/MIN (>89) 77 ML/MIN (>89) 62 ML/MIN (>89) Rate Random Glucose 118 MG/DL 112 MG/DL 130 MG/DL (74-106) (74-106) (74-106) B-Type Natriuretic Peptide 276 PG/ML (0-100) Blood Urea Nitrogen 20 MG/DL (7-18) PE at Discharge General: No acute distress. Heart: Regular rate and rhythm. No murmur. Lungs: Occasional wheezing on the right Abdomen soft, nontender Extremities: No lower extremity edema. Alert, awake, oriented 3, no focal deficits, ambulating with a walker. Hospital Course This is a 61-year-old male with history of coronary artery disease, CABG, status post previous stenting in the past presented to the Still with chest pain and shortness of breath. Patient was Status post cardiac catheterization with placement of bare metal stent of the LAD as well as angioplasty of the LAD on 11/13/16. Cardiology was consulted, recommendation is continue diuresis and medical management. Patient was continued on aspirin, metoprolol, lisinopril, statin, Prasugrel. Currently asymptomatic. Patient also acute exacerbation of chronic congestive heart failure systolic. Patient was started on intravenous diuretics. Patient also acute renal failure which was likely cardiorenal. Intravenous diuretics were increased as needed. Recent echocardiogram shows ejection fraction 45-50%. While in the hospital, he also had severe abdominal pain, he had an EGD which was unremarkable. Patient also had a fall, CT scan of the head was unremarkable. It was thought to be secondary to polypharmacy. Patient's chronic medications to Flexeril, Xanax and oxycodone were stopped and decreased. On discharge, he will be on Lasix twice a day and the above cardiac medications. Pt Condition on Discharge: Good Discharge Disposition: Discharge Home Discharge Time: > 30 minutes Discharge Instructions DIET: Follow Instructions for: Heart Healthy Diet Activities you can perform: Regular-No Restrictions Follow up Referrals: PCP Follow-up - 1 Week New Medications: Hydrocodone-Acetaminophen (Lortab) 10-325 Mg Tab 1 TAB PO q8h PRN PAIN #30 Ref 0 TAB Atorvastatin (Lipitor) 80 Mg Tab 80 MG PO DAILY cholesterol #30 TAB Fluticasone Nasal [place] (Fluticasone Nasal [place]) 50 Mcg/Act Naspr 1 SPRAY NASAL BID nasal congestion #1 BOTTLE Furosemide (Furosemide) 20 Mg Tab 20 MG PO BID CHF #60 TAB Gabapentin (Neurontin) 400 Mg Cap 400 MG PO TID neuropathy #90 CAP Lisinopril (Lisinopril) 5 Mg Tab 2.5 MG PO DAILY CHF #30 TAB Continued Medications: Albuterol 18 GM Inh (Ventolin Hfa 18 GM Inh) 90 Mcg/Act Aer 2 PUFF INH Q4-6H PRN SOB/WHEEZING #1 INHALER Aspirin (Aspirin) 81 Mg Chew 81 MG CHEW DAILY Ref 0 TAB Metoprolol Tartrate (Metoprolol Tartrate) 25 Mg Tab 12.5 MG PO Q12HR CAD #60 TAB (This prescription has been renewed) Nitroglycerin SL (Nitroglycerin SL) 0.3 Mg Subl 0.3 MG SL DIRECTED ONE TABLET UNDER THE TONGUE NEEDED FOR CHEST PAIN, MAY REPEAT EVERY FIVE MINUTES FOR A TOTAL OF 3 DOSES OR CALL 911 IF NO RELIEF. PRN CHEST PAIN #10 Ref 0 TAB.SL Pantoprazole (Protonix) 40 Mg Tab 40 MG PO DAILY Reflux #30 Ref 0 TAB Prasugrel (Effient) 10 Mg Tab 10 MG PO DAILY cad #30 TAB (This prescription has been renewed) Discontinued Medications: Oxycodone (Roxicodone) 30 Mg Tab 30 MG PO TID Pain TAB Pravastatin (Pravastatin) 40 Mg Tab 40 MG PO DAILY Cholesterol Management #30 Ref 0 TAB Sofie Chisholm MD Dec 14, 2016 11:36
--- NOTE | 2016-12-27 18:36 | PQ ---
Physician Query Response Document PATIENT: MANISH DEL ROSARIO : 1955 ADMIT DATE: 11/22/2016 5:00 AM DISCH DATE: 12/14/2016 2:15 PM RESPONDING PROVIDER #: natalie QUERY TEXT: Conflicting Documentation Clarification Please clarify the diagnosis/diagnoses:NSTEMI Was NSTEMI 1)rulled in 2)rulled out 3)patient had both NSTEMI and atypical chest pain 4)other(PLEASE SPECIFY) If you have any additional questions/comments and/or concerns please call [email or web address] The patient's Clinical Indicators include: Dr CHISHOLM, there is conflicting documentation between attending and nutter up. Final progress note by Dr. Mendez documents "atypical chest pain". Attending physicain documentation is "NSTEMI". GI services were then consulted and an EGD/COLONOSCOPY were done. Please review the question below and answer to the best of your ability. THANK YOU Query created by: Te Lim on 12/20/2016 7:51 AM RESPONSE TEXT: Ruled in Electronically signed by: Sofie Chisholm MD 12/27/2016 6:33 PM
== END 2016-12-14 14:15 | disposition home or self-care (01) | DRG 280 ==
LOC: NEPC 02:41 → NEDA 05:00 → HCIN 08:45 → N04A 11-24 18:40
PROVIDERS: ADMIT Hospitalist; ATTEND Hospitalist
PROC: 0DJ08ZZ Inspection of Upper Intestinal Tract, Via Natural or Artificial Opening Endoscopic (ICD-10-PCS; principal; 2016-11-29 09:40)
PROC: 0DJD8ZZ Inspection of Lower Intestinal Tract, Via Natural or Artificial Opening Endoscopic (ICD-10-PCS; 2016-11-30)
DX: I21.4 Non-ST elevation (NSTEMI) myocardial infarction (principal); I50.23 Acute on chronic systolic (congestive) heart failure; N17.9 Acute kidney failure, unspecified; I95.9 Hypotension, unspecified; K51.90 Ulcerative colitis, unspecified, without complications; E86.0 Dehydration; R13.10 Dysphagia, unspecified; I13.0 Hypertensive heart and chronic kidney disease with heart failure and stage 1 through stage 4 chronic kidney disease, or unspecified chronic kidney disease; Z95.1 Presence of aortocoronary bypass graft; G47.30 Sleep apnea, unspecified; I25.2 Old myocardial infarction; I25.110 Atherosclerotic heart disease of native coronary artery with unstable angina pectoris; F12.90 Cannabis use, unspecified, uncomplicated; Z95.5 Presence of coronary angioplasty implant and graft; Z87.442 Personal history of urinary calculi; K44.9 Diaphragmatic hernia without obstruction or gangrene; K21.9 Gastro-esophageal reflux disease without esophagitis; J44.9 Chronic obstructive pulmonary disease, unspecified; E78.00 Pure hypercholesterolemia, unspecified; M19.90 Unspecified osteoarthritis, unspecified site; F41.9 Anxiety disorder, unspecified; E78.5 Hyperlipidemia, unspecified; F17.210 Nicotine dependence, cigarettes, uncomplicated; M54.2 Cervicalgia; G89.21 Chronic pain due to trauma; Z91.14 Patient's other noncompliance with medication regimen; R07.89 Other chest pain; I25.5 Ischemic cardiomyopathy; K59.00 Constipation, unspecified; K64.4 Residual hemorrhoidal skin tags; K64.8 Other hemorrhoids; K29.70 Gastritis, unspecified, without bleeding; K20.9 Esophagitis, unspecified; Z59.0 Homelessness; N18.9 Chronic kidney disease, unspecified; Z82.49 Family history of ischemic heart disease and other diseases of the circulatory system
CPT/HCPCS: 70220; 70450; 71010; 71020; 74000; 74177; 74245; 76937; 80048; 80053; 80320; 81001; 82550; 83735; 83880; 84484; 85014; 85018; 85025; 85027; 85610; 85730; 87205; 87328; 87329; 87493; 87506; 93005; 94664; 96374; J1644; J1940; J2270; J2405; J7040; J7050; Q9963; Q9967

== ENCOUNTER 2016-12-19 13:03 | Observation (INO) | payer OTHER ==
[~2016-12-19] VITALS: Ht 167.6 cm; Wt 73.0 kg
[2016-12-19] VITALS (8 sets, daily range): BP systolic 114–178; BP diastolic 70–87; PULSE 76–110; RESP 17–24; TEMP 98.2–98.4; O2SAT 97–100
[~2016-12-19 13:03] MED LIST changes: -CYCL1TAB29 PO; +FLUT50SP NASAL; +FURO20TA PO; +HYDR-3535 PO; +LIPI80TA PO; +LISI-519 PO; -NEUR300C PO; +NEUR400C PO; -PRAV40TA2 PO; -ROXI30TA14 PO
[2016-12-19] MEDS ORDERED: MORPHINE SULFATE 4 MG/ML INJ IV PUSH ONE ×2 (13:15→17:00)
[2016-12-19] MEDS ORDERED: SODIUM CHLORIDE 0.9% FLUSH 5 ML FLUSH IVF PRN ×2 (13:15→16:45)
--- NOTE | 2016-12-19 13:55 | RADRPT ---
EXAM DATE/TIME: 12/19/2016 13:11 [facility] COMPARISON: CHEST SINGLE AP, November 27, 2016, 16:43. INDICATIONS : Chest pain. MEDICAL HISTORY : Cardiovascular disease. Chronic obstructive pulmonary disease. SURGICAL HISTORY : Carotid stent. CABG. ENCOUNTER: Initial ACUITY: 2 days PAIN SCORE: 7/10 LOCATION: Left upper chest FINDINGS: Sternal wires from previous bypass are noted. Heart and pulmonary vascularity are normal. Portions of the bony skeleton visualized are unremarkable. CONCLUSION: Negative chest for acute disease. Bill San MD FACR on December 19, 2016 at 13:52 Board Certified Radiologist. This report was verified electronically.
[2016-12-19 14:01] LABS: AUTOMATED NEUTROPHIL # 8.7 TH/MM3 (1.8-7.7); BASOPHIL # 0.1 TH/MM3 (0-0.2); BASOPHIL % 0.6 % (0.0-2.0); EOSINOPHIL % 0.4 % (0.0-4.0); HEMATOCRIT 40.8 % (39.0-51.0); HEMO FLAGS DIFF FINAL; LYMPH % 17.2 % (9.0-44.0); LYMPHOCYTE # 1.9 TH/MM3 (1.0-4.8); MEAN CORPUSCULAR HEMOGLOBIN 27.9 PG (27.0-34.0); MONO % 3.8 % (0.0-8.0); PLATELET COUNT 375 TH/MM3 (150-450); RED BLOOD COUNT 4.97 MIL/MM3 (4.50-5.90); RED CELL DISTRIBUTION WIDTH 15.8 % (11.6-17.2); WHITE BLOOD COUNT 11.2 TH/MM3 (4.0-11.0)
[2016-12-19 14:10] LABS: APTT (PATIENT) 26.6 SEC (24.3-30.1)
[2016-12-19 14:19] LABS: ALT (GPT) 17 U/L (12-78); ANION GAP 12 MEQ/L (5-15); AST (GOT) 16 U/L (15-37); BICARBONATE 21.2 MEQ/L (21.0-32.0); CHLORIDE 110 MEQ/L (98-107); GLOMERULAR FILTRATION RATE 68 ML/MIN (>89); MAGNESIUM 2.1 MG/DL (1.5-2.5); POTASSIUM 3.9 MEQ/L (3.5-5.1); SODIUM (NA) 143 MEQ/L (136-145)
[2016-12-19 14:24] LABS: ALKALINE PHOSPHATASE 70 U/L (45-117); BLOOD UREA NITROGEN 15 MG/DL (7-18); CREATINE KINASE 90 U/L (39-308); TOTAL BILIRUBIN ADULT 0.3 MG/DL (0.2-1.0)
--- NOTE | 2016-12-19 15:41 | PD ---
HPI Chief Complaint: Chest Pain Time Seen by Provider: 13:11 Travel History International Travel<30 days: No Contact w/Intl Traveler<30days: No Traveled to known affect area: No History of Present Illness HPI Patient is a 61-year-old male with extensive cardiac history including multiple stents and CABG, who comes in complaining of chest pain. He says he was sitting watching TV when the left-sided chest pain came on all of a sudden. He says the pain was 10/10 and improved to 7 out of 10 with nitroglycerin. He says he was diaphoretic and he felt nauseous with an episode of vomiting. He says it feels like when he had an CA in the past. He was just discharged 5 days ago after having an NSTEMI and CHF exacerbation. PFSH Past Medical History Hx Anticoagulant Therapy: Yes Arthritis: Yes Autoimmune Disease: No Anxiety: Yes Heart Rhythm Problems: Yes Cancer: No Cardiac Catheterization: Yes (WITH STENTS) Cardiovascular Problems: Yes High Cholesterol: Yes Congestive Heart Failure: Yes COPD: Yes Cerebrovascular Accident: No Diabetes: No Diminished Hearing: No Endocrine: No Gastrointestinal Disorders: Yes GERD: Yes Genitourinary: Yes Hiatal Hernia: Yes Heparin Induced Thrombocytopen: No Hypertension: Yes Immune Disorder: No Implanted Vascular Access Dvce: No Kidney Stones: Yes Reproductive: No Immunizations Current: Yes Migraines: Yes Myocardial Infarction: Yes Seizures: No Sickle Cell Disease: No Sleep Apnea: Yes (noncompliant) Ulcer: No Past Surgical History Abdominal Surgery: No Cardiac Surgery: Yes ( double cabg 2012 for stents) Coronary Artery Bypass Graft: Yes (X 2) Ear Surgery: No Endocrine Surgery: No Eye Surgery: No Genitourinary Surgery: No Gynecologic Surgery: No Neurologic Surgery: No Oral Surgery: No Thoracic Surgery: Yes (HX of CABG x 2) Other Surgery: Yes Family History Family Myocardial Infarction: Yes Social History Alcohol Use: No (PT DENIES) Tobacco Use: Yes Substance Use: Yes (MARIJUANA, OPIATES ) Allergies-Medications (Allergen,Severity, Reaction): Coded Allergies: Penicillin (Verified Allergy, Unknown, Hives, 12/19/16) Reported Meds & Prescriptions Reported Meds & Active Scripts Active Lortab (Hydrocodone-Acetaminophen) 10-325 Mg Tab 1 Tab PO Q8H PRN Lisinopril 5 Mg Tab 2.5 Mg PO DAILY Furosemide 20 Mg Tab 20 Mg PO BID Effient (Prasugrel) 10 Mg Tab 10 Mg PO DAILY Metoprolol Tartrate 25 Mg Tab 12.5 Mg PO Q12HR Neurontin (Gabapentin) 400 Mg Cap 400 Mg PO TID Fluticasone Nasal [place] 50 Mcg/Act Naspr 1 [place] NASAL BID Lipitor (Atorvastatin Calcium) 80 Mg Tab 80 Mg PO DAILY Ventolin Hfa 18 GM Inh (Albuterol Sulfate) 90 Mcg/Act Aer 2 Puff INH Q4-6H PRN Nitroglycerin SL (Nitroglycerin) 0.3 Mg Subl 0.3 Mg SL DIRECTED PRN ONE TABLET UNDER THE TONGUE NEEDED FOR CHEST PAIN, MAY REPEAT EVERY FIVE MINUTES FOR A TOTAL OF 3 DOSES OR CALL 911 IF NO RELIEF. Protonix (Pantoprazole Sodium) 40 Mg Tab 40 Mg PO DAILY Reported Alprazolam 1 Mg Tab 1 Mg PO BID Aspirin 81 Mg Chew 81 Mg CHEW DAILY Review of Systems Except as stated in HPI: all other systems reviewed are Neg General / Constitutional: No: Fever, Chills Eyes: No: Blurred Vision HENT: No: Headaches Cardiovascular: Positive: Chest Pain or Discomfort Respiratory: Positive: Shortness of Breath Gastrointestinal: Positive: Nausea, Vomiting, No: Abdominal Pain Musculoskeletal: No: Myalgias, Arthralgias Skin: No Rash, No Change in Pigmentation Neurologic: No: Weakness, Dizziness Physical Exam Narrative GENERAL: Awake and alert in mild distress due to pain. SKIN: Warm and dry. HEAD: Atraumatic. Normocephalic. EYES: Pupils equal and round. No scleral icterus. ENT: Mucous membranes pink and moist. NECK: Trachea midline. No JVD. CARDIOVASCULAR: Regular rate and rhythm. No murmur appreciated. RESPIRATORY: No accessory muscle use. Clear to auscultation. Breath sounds equal bilaterally. GASTROINTESTINAL: Abdomen soft, non-tender, nondistended. MUSCULOSKELETAL: No obvious deformities. No clubbing. No cyanosis. No edema. NEUROLOGICAL: Awake and alert. No obvious cranial nerve deficits. Motor grossly within normal limits. Normal speech. PSYCHIATRIC: Appropriate mood and affect; insight and judgment normal. Data Data Last Documented VS Vital Signs Date Time Temp Pulse Resp B/P Pulse Ox O2 Delivery O2 Flow Rate FiO2 12/19/16 15:06 79 134/75 129/78 12/19/16 15:05 20 99 Nasal Cannula 2 12/19/16 13:06 98.2 Orders B-Type Natriuretic Peptide (12/19/16 13:14) Ckmb (Isoenzyme) Profile (12/19/16 13:14) Complete Blood Count With Diff (12/19/16 13:14) Comprehensive Metabolic Panel (12/19/16 13:14) Magnesium (Mg) (12/19/16 13:14) Prothrombin Time / Inr (Pt) (12/19/16 13:14) Act Partial Throm Time (Ptt) (12/19/16 13:14) Troponin I (12/19/16 13:14) Chest, Single Ap (12/19/16 13:14) Ecg Monitoring (12/19/16 13:14) Bilateral Bp Monitoring (12/19/16 13:14) Iv Access Insert/Monitor (12/19/16 13:14) Oximetry (12/19/16 13:14) Oxygen Administration (12/19/16 13:14) Morphine Inj (Morphine Inj) (12/19/16 13:15) Sodium Chloride 0.9% Flush (Ns Flush) (12/19/16 13:15) Admit Order (Ed Use Only) (12/19/16 ) Labs Laboratory Tests Test 12/19/16 13:40 White Blood Count 11.2 TH/MM3 Red Blood Count 4.97 MIL/MM3 Hemoglobin 13.9 GM/DL Hematocrit 40.8 % Mean Corpuscular Volume 82.0 FL Mean Corpuscular Hemoglobin 27.9 PG Mean Corpuscular Hemoglobin 34.0 % Concent Red Cell Distribution Width 15.8 % Platelet Count 375 TH/MM3 Mean Platelet Volume 8.3 FL Neutrophils (%) (Auto) 78.0 % Lymphocytes (%) (Auto) 17.2 % Monocytes (%) (Auto) 3.8 % Eosinophils (%) (Auto) 0.4 % Basophils (%) (Auto) 0.6 % Neutrophils # (Auto) 8.7 TH/MM3 Lymphocytes # (Auto) 1.9 TH/MM3 Monocytes # (Auto) 0.4 TH/MM3 Eosinophils # (Auto) 0.0 TH/MM3 Basophils # (Auto) 0.1 TH/MM3 CBC Comment DIFF FINAL Differential Comment Prothrombin Time 11.0 SEC Prothromb Time International 1.0 RATIO Ratio Activated Partial 26.6 SEC Thromboplast Time Sodium Level 143 MEQ/L Potassium Level 3.9 MEQ/L Chloride Level 110 MEQ/L Carbon Dioxide Level 21.2 MEQ/L Anion Gap 12 MEQ/L Blood Urea Nitrogen 15 MG/DL Creatinine 1.10 MG/DL Estimat Glomerular Filtration 68 ML/MIN Rate Random Glucose 129 MG/DL Calcium Level 9.1 MG/DL Magnesium Level 2.1 MG/DL Total Bilirubin 0.3 MG/DL Aspartate Amino Transf 16 U/L (AST/SGOT) Alanine Aminotransferase 17 U/L (ALT/SGPT) Alkaline Phosphatase 70 U/L Total Creatine Kinase 90 U/L Troponin I LESS THAN 0.02 NG/ML B-Type Natriuretic Peptide 173 PG/ML Total Protein 7.6 GM/DL Albumin 3.9 GM/DL [facility] Medical Decision Making Medical Screen Exam Complete: Yes Emergency Medical Condition: Yes Medical Record Reviewed: Yes Interpretation(s) ECG shows normal sinus rhythm at 89, no ST elevation or depression. Differential Diagnosis ACS versus NSTEMI versus STEMI Narrative Course Patient is a 61-year-old male with extensive cardiac history who comes in complaining of chest pain. Exam shows no acute abnormalities. IV established, patient connected to the monitoring and evaluation advisor. Labs sent show no acute abnormalities. Patient was just discharged 5 days ago when he was treated for an NSTEMI. He was cathetered in November and had stents placed at that time. I spoke with Dr. Snell of cardiology who suggests chest pain center stay for rule out. Patient placed in chest pain center for further management. Given morphine for pain. He received aspirin by EMS. Diagnosis Primary Impression: Chest pain Qualified Code: R07.9 - Chest pain, unspecified type Admitting Information Admitting Physician Requests: Crystal Arora MD Dec 19, 2016 15:41
[2016-12-19] MEDS ORDERED: ALPR1TAB3 PO (16:43)
[2016-12-19] MEDS ORDERED: ALPRAZolam 0.25 MG TAB PO PRN (16:45)
[2016-12-19] MEDS ORDERED: cloNIDine HCL 0.1 MG TAB PO PRN (16:45)
[2016-12-19] MEDS ORDERED: ACETAMINOPHEN 500 MG CPLT PO PRN (16:45)
[2016-12-19] MEDS ORDERED: ONDANSETRON HCL 4 MG/2 ML VIAL IV PRN (16:45)
[2016-12-19] MEDS ORDERED: RESP: ALBUTEROL 2.5 MG/IPRATROPIUM 0.5 MG NEB (PRN) INH (16:45)
[2016-12-19] MEDS: PANTOPRAZOLE SOD 40 MG DELAYED RELEASE TAB PO SCH (16:54)
[2016-12-19] MEDS: NITROGLYCERIN 2% OINT 1 GM PACKET TOPICAL SCH (16:54)
--- NOTE | 2016-12-19 16:57 | HHI.HP ---
HPI Primary Care Physician No Primary Care Physician Chief Complaint Chest pain History of Present Illness This is a 61-year-old male that presents to the ED with history of CAD status post CABG and recent stenting last month with a complaint of chest pain. He states for the last 2 days he has had intermittent chest pain lasting a couple seconds at a time. He had history of noncompliance but states that he is taking his medications now as instructed. He had diaphoresis with his symptoms at times. No shortness of breath or nausea. This does not feel similar to when eating stenting last month but he was concerned about the pain. He's found nothing to bring on the discomfort. 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 Review of Systems General: Patient denies fevers, chills recent, and recent travel HEENT: Patient denies headache, sore throat, difficulty swallowing. Cardiovascular: Has the chest discomfort as mentioned above. Complains of palpitations, states it feels like a thump at times. There was diaphoresis.. No syncope. Respiratory: Denies shortness of breath or inspirational chest discomfort. Denies coughing wheezing or hemoptysis. GI: Patient denies nausea, vomiting, diarrhea, abdominal pain, bloody stools. Musculoskeletal: Patient denies joint pain or edema. Denies calf pain or edema. Neurovascular: Patient denies numbness, tingling, weakness in extremities. Denies headache. Endocrine: Denies polyuria and polydipsia. Hematologic: Denies easy bruising. Skin: Denies rash or itching. Past Family Social History Allergies: Coded Allergies: Penicillin (Verified Allergy, Unknown, Hives, 12/19/16) Past Medical History CAD with CABG and stenting. Last heart catheterization November 13, [address] bettencourt. Patient had bare metal stent of the ramus intermedius, distal left main , proximal LAD, and thrombectomy of the left main. Hypertension, hyperlipidemia , tobacco abuse. Past Surgical History Coronary artery bypass grafting. Heart catheterizations with stenting. Reported Medications Reported Meds & Active Scripts Active Lortab (Hydrocodone-Acetaminophen) 10-325 Mg Tab 1 Tab PO Q8H PRN Lisinopril 5 Mg Tab 2.5 Mg PO DAILY Furosemide 20 Mg Tab 20 Mg PO BID Effient (Prasugrel) 10 Mg Tab 10 Mg PO DAILY Metoprolol Tartrate 25 Mg Tab 12.5 Mg PO Q12HR Neurontin (Gabapentin) 400 Mg Cap 400 Mg PO TID Fluticasone Nasal [place] 50 Mcg/Act Naspr 1 [place] NASAL BID Lipitor (Atorvastatin Calcium) 80 Mg Tab 80 Mg PO DAILY Ventolin Hfa 18 GM Inh (Albuterol Sulfate) 90 Mcg/Act Aer 2 Puff INH Q4-6H PRN Nitroglycerin SL (Nitroglycerin) 0.3 Mg Subl 0.3 Mg SL DIRECTED PRN ONE TABLET UNDER THE TONGUE NEEDED FOR CHEST PAIN, MAY REPEAT EVERY FIVE MINUTES FOR A TOTAL OF 3 DOSES OR CALL 911 IF NO RELIEF. Protonix (Pantoprazole Sodium) 40 Mg Tab 40 Mg PO DAILY Reported Alprazolam 1 Mg Tab 1 Mg PO BID Aspirin 81 Mg Chew 81 Mg CHEW DAILY Active Ordered Medications Current Medications Medications (Trade) Dose Ordered Sig/Libby Route Start Time Stop Time Status Last Admin (NS Flush) 2 ml UNSCH PRN IVF 12/19/16 16:45 (NS Flush) 2 ml BID IVF 12/19/16 21:00 (Tylenol) 500 mg Q4H PRN PO 12/19/16 16:45 ([place] 7.5-325 Mg) 1 tab Q4H PRN PO 12/19/16 16:45 (Zofran Inj) 4 mg Q6H PRN IV 12/19/16 16:45 (Protonix) 40 mg DAILY PO 12/19/16 17:00 (Aspirin) 325 mg DAILY PO 12/20/16 09:00 (Xanax) 0.25 mg Q8H PRN PO 12/19/16 16:45 ([place]) 0.1 mg Q4H PRN PO 12/19/16 16:45 (Nitroglycerin 2% Oint) 1 inch Q8H TOPICAL 12/19/16 17:00 Family History Family history is positive for CAD. Social History Patient continues to smoke cigarettes. Has occasional marijuana. Denies alcohol use. Physical Exam Vital Signs Vital Signs Date Time Temp Pulse Resp B/P Pulse Ox O2 Delivery O2 Flow Rate FiO2 12/19/16 15:06 79 134/75 129/78 12/19/16 15:05 82 20 134/75 99 Nasal Cannula 2 12/19/16 13:06 98.2 96 24 134/85 100 Physical Exam GENERAL: This is a well-nourished, well-developed patient, in no apparent distress. Patient speaks in clear complete sentences. Patient is pleasant. HEENT: Head is atraumatic and normocephalic. Neck is supple without lymphadenopathy and trachea is midline. No JVD or carotid bruits. CARDIOVASCULAR: Regular rate and rhythm without murmurs, gallops, or rubs. RESPIRATORY: Clear to auscultation. Breath sounds equal bilaterally. No wheezes , rales, or rhonchi. Chest wall is nontender. No use of accessory muscles. GASTROINTESTINAL: Abdomen is nontender, nondistended. Abdomen soft. No obvious pulsatile mass or bruit. No CVA tenderness. Strong femoral pulses bilaterally. Normal bowel sounds in all quadrants. MUSCULOSKELETAL: Patient is moving upper and lower extremities freely. No calf tenderness or edema, no Homans sign. Strong pulses in upper and lower extremities. NEUROLOGICAL: Patient is alert and oriented. Cranial nerves 2-12 are grossly intact. No focal deficits and speech is clear. SKIN: No rash and turgor is normal. Laboratory Laboratory Tests Test 12/19/16 13:40 White Blood Count 11.2 Red Blood Count 4.97 Hemoglobin 13.9 Hematocrit 40.8 Mean Corpuscular Volume 82.0 Mean Corpuscular Hemoglobin 27.9 Mean Corpuscular Hemoglobin 34.0 Concent Red Cell Distribution Width 15.8 Platelet Count 375 Mean Platelet Volume 8.3 Neutrophils (%) (Auto) 78.0 Lymphocytes (%) (Auto) 17.2 Monocytes (%) (Auto) 3.8 Eosinophils (%) (Auto) 0.4 Basophils (%) (Auto) 0.6 Neutrophils # (Auto) 8.7 Lymphocytes # (Auto) 1.9 Monocytes # (Auto) 0.4 Eosinophils # (Auto) 0.0 Basophils # (Auto) 0.1 CBC Comment DIFF FINAL Differential Comment Prothrombin Time 11.0 Prothromb Time International 1.0 Ratio Activated Partial 26.6 Thromboplast Time Sodium Level 143 Potassium Level 3.9 Chloride Level 110 Carbon Dioxide Level 21.2 Anion Gap 12 Blood Urea Nitrogen 15 Creatinine 1.10 Estimat Glomerular Filtration 68 Rate Random Glucose 129 Calcium Level 9.1 Magnesium Level 2.1 Total Bilirubin 0.3 Aspartate Amino Transf 16 (AST/SGOT) Alanine Aminotransferase 17 (ALT/SGPT) Alkaline Phosphatase 70 Total Creatine Kinase 90 Troponin I LESS THAN 0.02 B-Type Natriuretic Peptide 173 Total Protein 7.6 Albumin 3.9 Result Diagram: 12/19/16 1340 12/19/16 1340 Imaging Chest x-ray reveals nothing acute. There are sternal wires from prior CABG. Course Initial EKG is sinus rhythm without significant ST segment depressions or elevations. Assessment and Plan Assessment and Plan * Chest pain: Patient will continue to have cardiac enzymes and EKGs for ruling out. Patient has been seen by Dr. Jeremias Rosado of cardiology and the chest pain center If he does rule out he will proceed with a Lexiscan in the morning. We'll place one inch of nitroglycerin ointment on the chest wall. * CAD: We will reassess with stress testing if he rules out. Will continue his medications. * Hypertension: Continue current medications. * Hyperlipidemia: Continue current medications. * Tobacco abuse: Patient has been counseled on importance of smoking cessation. Keven Cerda Dec 19, 2016 16:56
[2016-12-19] MEDS ORDERED: PILL SPLITTER OTHER PRN (17:30)
[2016-12-19 17:48] LABS: CREATINE KINASE 79 U/L (39-308)
[2016-12-19] MEDS: ACETAMINOPHEN/HYDROcodone 325 MG/7.5 MG TAB PO PRN ×2 (18:12→22:17)
[2016-12-19] MEDS: GABAPENTIN 400 MG CAP PO SCH (18:13)
[2016-12-19] MEDS: FUROSEMIDE 20 MG TAB PO SCH (21:18)
[2016-12-19] MEDS: METOPROLOL TARTRATE 25 MG TAB PO SCH (21:18)
[2016-12-19] MEDS: SODIUM CHLORIDE 0.9% FLUSH 5 ML FLUSH IVF SCH (22:18)
[2016-12-19 22:26] LABS: CREATINE KINASE 161 U/L (39-308)
[2016-12-20] MEDS: NITROGLYCERIN 2% OINT 1 GM PACKET TOPICAL SCH ×2 (00:52→09:00)
[2016-12-20] MEDS: ACETAMINOPHEN/HYDROcodone 325 MG/7.5 MG TAB PO PRN ×2 (02:17→10:34)
[2016-12-20 04:09] VITALS: PULSE 74
[2016-12-20 04:41] VITALS: BP 110/61; PULSE 79; RESP 21; TEMP 98.1; O2SAT 98
[2016-12-20 08:00] VITALS: BP 109/75; PULSE 79; PULSE 80; RESP 20; TEMP 97.7; O2SAT 95
[2016-12-20] MEDS: SODIUM CHLORIDE 0.9% FLUSH 5 ML FLUSH IVF SCH (08:35)
[2016-12-20] MEDS ORDERED: ASPIRIN 325 MG TAB PO SCH (09:00)
[2016-12-20] MEDS ORDERED: ATORVASTATIN 80 MG TAB PO SCH (09:00)
[2016-12-20] MEDS ORDERED: LISINOPRIL 5 MG TAB PO SCH (09:00)
[2016-12-20] MEDS ORDERED: PRASUGREL 10 MG TAB PO SCH (09:00)
[2016-12-20] MEDS: FUROSEMIDE 20 MG TAB PO SCH (09:00)
[2016-12-20] MEDS ORDERED: REGADENOSON INJ 0.4 MG/5 ML SYR ONE (09:23)
[2016-12-20] MEDS: METOPROLOL TARTRATE 25 MG TAB PO SCH (10:32)
[2016-12-20] MEDS: PANTOPRAZOLE SOD 40 MG DELAYED RELEASE TAB PO SCH (10:32)
[2016-12-20] MEDS: GABAPENTIN 400 MG CAP PO SCH (10:32)
--- NOTE | 2016-12-20 10:48 | RADRPT ---
EXAM DATE/TIME: 12/20/2016 08:48 [facility] COMPARISON: MYOCARDIAL PERF PHARM SPECT, GATED W/EF, September 18, 2016, 9:09. INDICATIONS : Chest pain for 2 days. Coronary artery disease, myocardial infarction and current smoker. Angina. Cor onary artery bypass graft. DOSE: 26.3 mCi Tc99m Myoview at stress. 8.1 mCi Tc99m Myoview at rest. 0.4 mg Lexiscan STRESS SYMPTOMS: Chest pressure and shortness of breath. EJECTION FRACTION: 54% MEDICAL HISTORY : Hypertension. SURGICAL HISTORY : CABG ENCOUNTER: Initial ACUITY: 1 day PAIN SCALE: 4/10 LOCATION: Bilateral chest TECHNIQUE: The patient underwent pharmacologic stress with infusion of prescribed dose. Continuous ECG tracing was monitored during stress. Gated SPECT imaging was performed after stress and conventional SPECT i maging was performed at rest. The examination was performed on a SPECT/CT scanner, both attenuation and non-corrected datasets were reviewed. FINDINGS: DISTRIBUTION: The maximum perfused segment at stress is in the inferior wall. PERFUSION STUDY: There is a moderate size partially fixed lateral wall perfusion defect with small area of apparent re versibility medially. There is a summed stress score of 12. GATED STUDY: There is intact wall motion and thickening without hypokinetic or dyskinetic segments. CONCLUSION: 1. Moderate size partially fixed perfusion defect involving the lateral wall with small air reversibi lity. 2. Normal wall motion the calculated ejection fraction. RISK CATEGORY: Intermediate (1-3% Annual Mortality Rate) Billy Bradford MD on December 20, 2016 at 10:42 Board Certified Radiologist. This report was verified electronically.
--- NOTE | 2016-12-20 11:04 | TR ---
Date Performed: 12/20/2016 Time Performed: 09:19:16 DOCTOR: Arnaud Jordan DRUG LIST: CLINICAL HISTORY: REASON FOR TEST: Angina REASON FOR ENDING: OBSERVATION: CONCLUSION: Lexiscan stress test was performed under standard four minute protocol. [place] e was injected one minute prior to ending the test. No electrocardiographic abormalities were present to suggest ischemia. Nuclear imaging and interpretation are pending. COMMENTS:
--- NOTE | 2016-12-20 11:08 | HHI.DCPOC ---
Discharge Care Plan Diagnosis: (1) Chest pain (2) Hypotension (3) Tobacco abuse (4) Hyperlipidemia (5) CAD (coronary artery disease) (6) Hx of CABG (7) H/O heart artery stent (8) Hypertension Goals to Promote Your Health * To prevent worsening of your condition and complications * To maintain your health at the optimal level Directions to Meet Your Goals Take your medications as prescribed Follow your dietary instruction Follow activity as directed Keep your appointments as scheduled Take your immunizations and boosters as scheduled If your symptoms worsen call your PCP, if no PCP go to Urgent Care Center or Emergency Room Smoking is Dangerous to Your Health. Avoid second hand smoke Call the 24-hour hour crisis hotline for domestic abuse at Keven Cerda Dec 20, 2016 11:08
--- NOTE | 2016-12-20 11:32 | EKG ---
Date Performed: 12/19/2016 Time Performed: 19:52:16 PTAGE: 61 years EKG: Sinus rhythm NORMAL ECG PREVIOUS TRACING : 12/19/2016 17.11 Since previous tracing, no significant change noted DOCTOR: Arnaud Jordan Interpretating Date/Time 12/20/2016 11:32:30
--- NOTE | 2016-12-20 11:33 | EKG ---
Date Performed: 12/19/2016 Time Performed: 17:11:24 PTAGE: 61 years EKG: Sinus rhythm NORMAL ECG PREVIOUS TRACING : 12/19/2016 13.09 Since previous tracing, no significant change noted DOCTOR: Arnaud Jordan Interpretating Date/Time 12/20/2016 11:33:08
--- NOTE | 2016-12-20 11:35 | EKG ---
Date Performed: 12/19/2016 Time Performed: 13:09:08 PTAGE: 61 years EKG: Sinus rhythm normal EKG PREVIOUS TRACING : 11/22/2016 17.26 Since previous tracing, no significant change noted DOCTOR: Arnaud Jordan Interpretating Date/Time 12/20/2016 11:34:25
[2016-12-20 12:00] VITALS: BP 133/76; PULSE 76; RESP 20; TEMP 96.5; O2SAT 98
== END 2016-12-20 13:23 | disposition home or self-care (01) ==
LOC: NEPC 13:03 → NEDA 15:43 → NEPHCDU 19:23
PROVIDERS: ADMIT Internal Medicine Cardiovascular Disease; ATTEND Internal Medicine Cardiovascular Disease
DX: R07.89 Other chest pain (principal); J44.9 Chronic obstructive pulmonary disease, unspecified; I50.9 Heart failure, unspecified; I25.10 Atherosclerotic heart disease of native coronary artery without angina pectoris; I10 Essential (primary) hypertension; I25.2 Old myocardial infarction; G47.30 Sleep apnea, unspecified; E78.5 Hyperlipidemia, unspecified; E78.00 Pure hypercholesterolemia, unspecified; K21.9 Gastro-esophageal reflux disease without esophagitis; F12.90 Cannabis use, unspecified, uncomplicated; F17.210 Nicotine dependence, cigarettes, uncomplicated; Z87.442 Personal history of urinary calculi; Z95.1 Presence of aortocoronary bypass graft; Z91.19 Patient's noncompliance with other medical treatment and regimen
CPT/HCPCS: 71010; 78452; 80053; 82550; 82552; 83735; 83880; 84484; 85025; 85610; 85730; 93005; 93017; 96374; 99285; A9502; G0378; J2270; J2405; J2785

== ENCOUNTER 2017-01-02 01:13 | Emergency (ER) | payer OTHER ==
[~2017-01-02] VITALS: Ht 167.6 cm; Wt 70.0 kg
[~2017-01-02 01:13] MED LIST changes: +ALPR1TAB3 PO
[2017-01-02 01:30] VITALS: BP 159/89; PULSE 80; RESP 20; TEMP 98; O2SAT 98
[2017-01-02] MEDS ORDERED: SODIUM CHLORIDE 0.9% FLUSH 5 ML FLUSH IVF PRN (02:00)
[2017-01-02] MEDS ORDERED: ASPIRIN EC 325 MG TABEC PO ONE (02:00)
--- NOTE | 2017-01-02 02:12 | PD ---
HPI Chief Complaint: Chest Pain Time Seen by Provider: 01:46 Travel History International Travel<30 days: No Contact w/Intl Traveler<30days: No Traveled to known affect area: No History of Present Illness HPI 61-year-old male with history of previous HI, stenting, multiple medical issues , presents to the ER today because of worsening in chest pains starting yesterday. He states he has been having a stuttering course of intermittent chest pains, nausea, shortness of breath. Pain is currently an 8 out of 10. He has been nauseous, denies any vomiting, or other symptoms. Pain worsens with walking. He denies any other symptoms. He states that he was recently at [facility] and his medications had been disrupted because he was being evaluated for acute psychiatric issues. He is afraid that his stents may have become included. Modifying Factors: None Associated Signs & Symptoms: Intermittent chest pains worsening today Risk Factors: Cardiac history PFSH Past Medical History Hx Anticoagulant Therapy: Yes Arthritis: Yes Asthma: No Autoimmune Disease: No Blood Disorders: No Anxiety: Yes Depression: Yes Heart Rhythm Problems: No Cancer: No Cardiac Catheterization: Yes Cardiovascular Problems: Yes (HX OF CABG, STENTING, CARDIAC CATH, CAD, HI) High Cholesterol: Yes Chest Pain: Yes Congestive Heart Failure: No COPD: Yes Cerebrovascular Accident: No Diabetes: No Diminished Hearing: No Endocrine: No Gastrointestinal Disorders: Yes GERD: Yes Hiatal Hernia: Yes Heparin Induced Thrombocytopen: No Hypertension: Yes Immune Disorder: No Implanted Vascular Access Dvce: Yes Kidney Stones: Yes Musculoskeletal: No Neurologic: Yes (NEUROPATHY ) Psychiatric: Yes Reproductive: No Respiratory: Yes Immunizations Current: Yes Migraines: Yes Myocardial Infarction: Yes Seizures: No Sickle Cell Disease: No Sleep Apnea: No Ulcer: No Tetanus Vaccination: > 5 Years Past Surgical History Abdominal Surgery: No Body Medical Devices: STENTS Cardiac Surgery: Yes ( double cabg 2012 / 2015 for stents) Coronary Artery Bypass Graft: Yes Ear Surgery: No Endocrine Surgery: No Eye Surgery: No Genitourinary Surgery: No Gynecologic Surgery: No Neurologic Surgery: No Oral Surgery: No Thoracic Surgery: Yes (HX of CABG x 2) Other Surgery: Yes (CABG, STENTING) Family History Family Myocardial Infarction: Yes Social History Alcohol Use: No (PT DENIES) Tobacco Use: Yes Substance Use: No (PT STATES HE USED EVERY DRUG YEARS AGO 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 [employer]IC[employer] ) Allergies-Medications (Allergen,Severity, Reaction): Coded Allergies: Penicillin (Verified Allergy, Unknown, Hives, 01/02/17) Toradol (Verified Allergy, Unknown, 01/02/17) Reported Meds & Prescriptions Reported Meds & Active Scripts Active Lisinopril 5 Mg Tab 2.5 Mg PO DAILY Furosemide 20 Mg Tab 20 Mg PO BID Effient (Prasugrel) 10 Mg Tab 10 Mg PO DAILY Metoprolol Tartrate 25 Mg Tab 12.5 Mg PO Q12HR Fluticasone Nasal [place] 50 Mcg/Act Naspr 1 [place] NASAL BID Lipitor (Atorvastatin Calcium) 80 Mg Tab 80 Mg PO DAILY Ventolin Hfa 18 GM Inh (Albuterol Sulfate) 90 Mcg/Act Aer 2 Puff INH Q4-6H PRN Nitroglycerin SL (Nitroglycerin) 0.3 Mg Subl 0.3 Mg SL DIRECTED PRN ONE TABLET UNDER THE TONGUE NEEDED FOR CHEST PAIN, MAY REPEAT EVERY FIVE MINUTES FOR A TOTAL OF 3 DOSES OR CALL 911 IF NO RELIEF. Protonix (Pantoprazole Sodium) 40 Mg Tab 40 Mg PO DAILY Reported Oxycodone (Oxycodone HCl) 30 Mg Tab 30 Mg PO Q8H PRN Gabapentin 600 Mg Tab 600 Mg PO TID Alprazolam 1 Mg Tab 1 Mg PO BID Aspirin 81 Mg Chew 81 Mg CHEW DAILY Review of Systems Except as stated in HPI: all other systems reviewed are Neg Physical Exam Narrative GENERAL: Well-nourished, well-developed elderly white male patient in no acute distress. SKIN: Warm and dry. HEAD: Normocephalic. EYES: No scleral icterus. No injection or drainage. NECK: Supple, trachea midline. CARDIOVASCULAR: Regular rate and rhythm without murmurs, gallops, or rubs. RESPIRATORY: Breath sounds equal bilaterally. No accessory muscle use. GASTROINTESTINAL: Abdomen soft, non-tender, nondistended. MUSCULOSKELETAL: No cyanosis, or edema. BACK: Nontender without obvious deformity. No CVA tenderness. Data Data Last Documented VS Vital Signs Date Time Temp Pulse Resp B/P Pulse Ox O2 Delivery O2 Flow Rate FiO2 01/02/17 02:57 82 20 131/73 98 Room Air 01/02/17 01:30 98.0 Orders Electrocardiogram (01/02/17 01:46) Ckmb (Isoenzyme) Profile (01/02/17 01:46) Complete Blood Count With Diff (01/02/17 01:46) Comprehensive Metabolic Panel (01/02/17 01:46) Magnesium (Mg) (01/02/17 01:46) Prothrombin Time / Inr (Pt) (01/02/17 01:46) Act Partial Throm Time (Ptt) (01/02/17 01:46) Troponin I (01/02/17 01:46) Chest, Single Ap (01/02/17 01:46) Ecg Monitoring (01/02/17 01:46) Bilateral Bp Monitoring (01/02/17 01:46) Iv Access Insert/Monitor (01/02/17 01:46) Oximetry (01/02/17 01:46) Oxygen Administration (01/02/17 01:46) Sodium Chloride 0.9% Flush (Ns Flush) (01/02/17 02:00) Aspirin Ec (Ecotrin Ec) (01/02/17 02:00) CKMB (01/02/17 02:32) CKMB% (01/02/17 02:32) Nitroglycerin 2% Oint (Nitroglycerin 2% (01/02/17 03:30) Admit Order (Ed Use Only) (01/02/17 03:30) Drug Screen, Random Urine (01/02/17 03:30) Labs Laboratory Tests Test 01/02/17 02:32 White Blood Count 14.6 TH/MM3 Red Blood Count 4.59 MIL/MM3 Hemoglobin 12.5 GM/DL Hematocrit 37.6 % Mean Corpuscular Volume 81.9 FL Mean Corpuscular Hemoglobin 27.3 PG Mean Corpuscular Hemoglobin 33.3 % Concent Red Cell Distribution Width 16.1 % Platelet Count 216 TH/MM3 Mean Platelet Volume 9.0 FL Neutrophils (%) (Auto) 81.3 % Lymphocytes (%) (Auto) 11.0 % Monocytes (%) (Auto) 7.5 % Eosinophils (%) (Auto) 0.1 % Basophils (%) (Auto) 0.1 % Neutrophils # (Auto) 11.9 TH/MM3 Lymphocytes # (Auto) 1.6 TH/MM3 Monocytes # (Auto) 1.1 TH/MM3 Eosinophils # (Auto) 0.0 TH/MM3 Basophils # (Auto) 0.0 TH/MM3 CBC Comment DIFF FINAL Differential Comment Prothrombin Time 10.6 SEC Prothromb Time International 1.0 RATIO Ratio Activated Partial 26.4 SEC Thromboplast Time Sodium Level 142 MEQ/L Potassium Level 4.3 MEQ/L Chloride Level 106 MEQ/L Carbon Dioxide Level 28.1 MEQ/L Anion Gap 8 MEQ/L Blood Urea Nitrogen 27 MG/DL Creatinine 1.07 MG/DL Estimat Glomerular Filtration 70 ML/MIN Rate Random Glucose 122 MG/DL Calcium Level 9.2 MG/DL Magnesium Level 2.4 MG/DL Total Bilirubin 0.3 MG/DL Aspartate Amino Transf 10 U/L (AST/SGOT) Alanine Aminotransferase 19 U/L (ALT/SGPT) Alkaline Phosphatase 74 U/L Total Creatine Kinase 103 U/L Creatine Kinase MB 4.3 NG/ML Troponin I 0.05 NG/ML Total Protein 8.0 GM/DL Albumin 4.4 GM/DL [facility] Medical Decision Making Medical Screen Exam Complete: Yes Emergency Medical Condition: Yes Medical Record Reviewed: Yes Interpretation(s) EKG shows NSR, no ST elevation or depression, and no arrhythmias. No significant T-wave inversions. Laboratory Tests Test 01/02/17 02:32 White Blood Count 14.6 TH/MM3 (4.0-11.0) Hemoglobin 12.5 GM/DL (13.0-17.0) Hematocrit 37.6 % (39.0-51.0) Neutrophils (%) (Auto) 81.3 % (16.0-70.0) Neutrophils # (Auto) 11.9 TH/MM3 (1.8-7.7) Monocytes # (Auto) 1.1 TH/MM3 (0-0.9) Blood Urea Nitrogen 27 MG/DL (7-18) Estimat Glomerular Filtration 70 ML/MIN (>89) Rate Random Glucose 122 MG/DL (74-106) Aspartate Amino Transf 10 U/L (15-37) (AST/SGOT) Creatine Kinase MB 4.3 NG/ML (0.5-3.6) Last 24 hours Impressions Chest X-Ray 01/02/17 0146 Signed Impressions: Service Date/Time: Monday, January 02, 2017 02:02 - CONCLUSION: No acute disease. Cr Tay MD Differential Diagnosis Intermittent chest painsACS versus unstable angina versus dysrhythmias versus anxiety versus costochondritis Narrative Course While in the ER, patient is fairly anxious, and states that he has chronic back pain, wants to get medications for his back pain. He was given aspirin and nitroglycerin in the ER. Tramadol was given for his back pain. Troponin is negative. At this point, my plan would be to admit the patient for further evaluation of chest pain in chest pain center. Diagnosis Primary Impression: Chest pain Admitting Information Admitting Physician Requests: Admit Sangeeta Sanderson MD Jan 02, 2017 02:12
--- NOTE | 2017-01-02 02:17 | RADRPT ---
EXAM DATE/TIME: 01/02/2017 02:02 [facility] COMPARISON: CHEST SINGLE AP, December 19, 2016, 13:11. INDICATIONS : Chest pain. MEDICAL HISTORY : Cardiovascular disease. SURGICAL HISTORY : CABG. Coronary artery stent. ENCOUNTER: Initial ACUITY: 1 day PAIN SCORE: 7/10 LOCATION: Bilateral chest FINDINGS: A single view of the chest demonstrates the lungs to be symmetrically aerated without evidence of mas s, infiltrate or effusion. The patient is status post sternotomy. The cardiomediastinal contours are unremarkable. Osseous structures are intact. CONCLUSION: No acute disease. Cr Tay MD on January 02, 2017 at 2:15 Board Certified Radiologist. This report was verified electronically.
[2017-01-02 02:48] LABS: AUTOMATED NEUTROPHIL # 11.9 TH/MM3 (1.8-7.7); BASOPHIL % 0.1 % (0.0-2.0); EOSINOPHIL % 0.1 % (0.0-4.0); HEMATOCRIT 37.6 % (39.0-51.0); HEMO FLAGS DIFF FINAL; LYMPHOCYTE # 1.6 TH/MM3 (1.0-4.8); MEAN CELL VOLUME 81.9 FL (80.0-100.0); MEAN CORPUSCULAR HEMOGLOBIN 27.3 PG (27.0-34.0); MEAN CORPUSCULAR HGB CONC 33.3 % (32.0-36.0); MONO % 7.5 % (0.0-8.0); NEUT % 81.3 % (16.0-70.0); PLATELET COUNT 216 TH/MM3 (150-450); RED BLOOD COUNT 4.59 MIL/MM3 (4.50-5.90); RED CELL DISTRIBUTION WIDTH 16.1 % (11.6-17.2); WHITE BLOOD COUNT 14.6 TH/MM3 (4.0-11.0)
[2017-01-02] MEDS ORDERED: GABA600T PO (02:56)
[2017-01-02 02:57] VITALS: BP 131/73; PULSE 82; RESP 20; O2SAT 98
[2017-01-02 03:02] LABS: APTT (PATIENT) 26.4 SEC (24.3-30.1); PROTHROMBIN TIME - PATIENT 10.6 SEC (9.8-11.6)
[2017-01-02 03:16] LABS: ALT (GPT) 19 U/L (12-78); ANION GAP 8 MEQ/L (5-15); AST (GOT) 10 U/L (15-37); BICARBONATE 28.1 MEQ/L (21.0-32.0); BLOOD UREA NITROGEN 27 MG/DL (7-18); CHLORIDE 106 MEQ/L (98-107); GLOMERULAR FILTRATION RATE 70 ML/MIN (>89); MAGNESIUM 2.4 MG/DL (1.5-2.5); POTASSIUM 4.3 MEQ/L (3.5-5.1); SODIUM (NA) 142 MEQ/L (136-145)
[2017-01-02 03:20] LABS: ALKALINE PHOSPHATASE 74 U/L (45-117); CREATINE KINASE 103 U/L (39-308); TOTAL BILIRUBIN ADULT 0.3 MG/DL (0.2-1.0)
[2017-01-02] MEDS ORDERED: NITROGLYCERIN 2% OINT 1 GM PACKET TOPICAL ONE (03:30)
[2017-01-02 03:33] LABS: CKMB 4.3 NG/ML (0.5-3.6)
[2017-01-02] MEDS ORDERED: OXYC30TA PO (03:33)
[2017-01-02 03:37] VITALS: BP 130/69; PULSE 80; RESP 20; O2SAT 99
[2017-01-02 04:00] LABS: AMPHETAMINE, URINE NEG (NEG); BARBITURATES, URINE NEG (NEG); COCAINE, URINE NEG (NEG)
[2017-01-02] MEDS ORDERED: traMADol/ACETAMINOPHEN 37.5/325 1 TAB PO ONE (04:00)
[2017-01-02] MEDS ORDERED: ALPRAZolam 0.25 MG TAB PO ONE (04:00)
--- NOTE | 2017-01-02 22:03 | EKG ---
Date Performed: 01/02/2017 Time Performed: 01:38:32 PTAGE: 61 years EKG: Sinus rhythm NORMAL ECG PREVIOUS TRACING : 12/19/2016 19.52 Compared to prior tracing no significant change DOCTOR: Jennifer Escobar Interpretating Date/Time 01/02/2017 22:01:29
== END 2017-01-02 04:26 | disposition left against medical advice (07) ==
LOC: NEPC 01:13 → UNDOADMOB 03:32 → NEDA 03:32 → NEPC 04:26 → UNDODISOB 04:26
DX: R07.9 Chest pain, unspecified (principal); R06.02 Shortness of breath; Z79.899 Other long term (current) drug therapy
CPT/HCPCS: 71010; 80053; 80307; 82550; 82552; 83735; 84484; 85025; 85610; 85730; 93005; G0378

== ENCOUNTER 2017-01-02 05:59 | Observation (INO) | payer OTHER ==
[2017-01-02] VITALS (8 sets, daily range): BP systolic 113–171; BP diastolic 67–88; PULSE 63–103; RESP 18–20; TEMP 97.4–98; O2SAT 96–99
[~2017-01-02 05:59] MED LIST changes: +GABA600T PO; +OXYC30TA PO
--- NOTE | 2017-01-02 06:19 | PD ---
Physical Exam Date Seen by Provider: Jan 02, 2017 Time Seen by Provider: 06:00 Narrative Patient seen earlier and evaluated by me and admitted to chest pain center. However, patient did not want to get further blood draws, and decided that he wanted to leave AGAINST MEDICAL ADVICE. He returns to the ER stating that his significant other told him that he needed to be evaluated further. He now also tells me that he has been having frequent falls in the past few days, has hit his head although he is not sure whether he had loss consciousness. He denies any new issues since leaving AGAINST MEDICAL ADVICE about an hour ago. Patient denies any alcohol intake. He denies any drug use. GENERAL: Well-nourished, well-developed elderly white male patient who is tremulous, but awake, alert, oriented 3 and not in acute distress. SKIN: Warm and dry. HEAD: Normocephalic. EYES: No scleral icterus. No injection or drainage. NECK: Supple, trachea midline. CARDIOVASCULAR: Regular rate and rhythm without murmurs, gallops, or rubs. RESPIRATORY: Breath sounds equal bilaterally. No accessory muscle use. GASTROINTESTINAL: Abdomen soft, non-tender, nondistended. MUSCULOSKELETAL: No cyanosis, or edema. BACK: Nontender without obvious deformity. No CVA tenderness. NEUROLOGICAL: Awake and alert. Cranial nerves II through XII intact. Motor and sensory grossly within normal limits. Five out of 5 muscle strength in all muscle groups. Normal speech. Lab work had artery been done before he left and his CK-MB is slightly elevated. EKG did not show any signs of acute changes. At this point, my plan would be to admit the patient for further evaluation by cardiology. His CT was done to rule out acute intracranial processes. Case was discussed with Dr. Ashley for admission. Data Data Last Documented VS Vital Signs Date Time Temp Pulse Resp B/P Pulse Ox O2 Delivery O2 Flow Rate FiO2 01/02/17 06:22 81 20 Room Air 01/02/17 06:10 98.0 139/86 99 Orders Electrocardiogram (01/02/17 06:15) Ckmb (Isoenzyme) Profile (01/02/17 06:15) Troponin I (01/02/17 06:15) Ct Brain W/O Iv Contrast(Rout) (01/02/17 06:15) [facility] Medical Record Reviewed: Yes Supervised Visit with ZARI: No Diagnosis Primary Impression: Chest pain Admitting Information Admitting Physician Requests: it Sangeeta Sanderson MD Jan 02, 2017 06:19
--- NOTE | 2017-01-02 06:56 | RADRPT ---
EXAM DATE/TIME: 01/02/2017 06:40 [facility] COMPARISON: CT BRAIN W/O CONTRAST, December 11, 2016, 15:51. INDICATIONS : Unsteady gait along with chest pain and blurry vision. RADIATION DOSE: 36.67 CTDIvol (mGy) MEDICAL HISTORY : Cardiovascular disease. Hypertension. Chronic obstructive pulmonary disease. SURGICAL HISTORY : CABG Carotid stent. ENCOUNTER: Initial ACUITY: 1 day PAIN SCALE: 3/10 LOCATION: cranial TECHNIQUE: Multiple contiguous axial images were obtained of the head. Using automated exposure control and adj ustment of the mA and/or kV according to patient size, radiation dose was kept as low as reasonably a chievable to obtain optimal diagnostic quality images. FINDINGS: CEREBRUM: The ventricles are normal for age. No evidence of midline shift, mass lesion, hemorrhage or acute in farction. No extra-axial fluid collections are seen. POSTERIOR FOSSA: The cerebellum and brainstem are intact. The 4th ventricle is midline. The cerebellopontine angle i s unremarkable. EXTRACRANIAL: The visualized portion of the orbits is intact. SKULL: The calvaria is intact. No evidence of skull fracture. CONCLUSION: Normal examination. Cr Tay MD on January 02, 2017 at 6:54 Board Certified Radiologist. This report was verified electronically.
[2017-01-02] MEDS ORDERED: NALOXONE HCL 0.4 MG/ML AMP IV PRN (07:00)
[2017-01-02] MEDS ORDERED: SODIUM CHLORIDE 0.9% FLUSH 5 ML FLUSH FLUSH PRN (07:00)
[2017-01-02] MEDS ORDERED: ONDANSETRON HCL 4 MG/2 ML VIAL IVP PRN (07:00)
[2017-01-02] MEDS: SODIUM CHLOR 0.9% 1000 ML INJ 1,000 ML IV SCH ×2 (08:01→17:00)
[2017-01-02] MEDS: SODIUM CHLORIDE 0.9% FLUSH 5 ML FLUSH FLUSH SCH ×2 (08:01→21:00)
[2017-01-02 08:16] LABS: CREATINE KINASE 103 U/L (39-308)
[2017-01-02 08:28] LABS: CKMB 4.5 NG/ML (0.5-3.6)
[2017-01-02] MEDS ORDERED: NITROGLYCERIN 0.4 MG SL 25 TABS/BTL SL PRN (11:45)
[2017-01-02] MEDS ORDERED: ALBUTEROL SULFATE 90 MCG/ACT HFA 8 GM INHALER INH PRN (11:45)
[2017-01-02] MEDS ORDERED: MORPHINE SULFATE 4 MG/ML INJ IV PUSH PRN (11:45)
[2017-01-02] MEDS ORDERED: PILL SPLITTER OTHER PRN (12:15)
[2017-01-02] MEDS: ATORVASTATIN 80 MG TAB PO SCH (12:44)
[2017-01-02] MEDS: GABAPENTIN 300 MG CAP PO SCH ×2 (12:44→17:12)
[2017-01-02] MEDS: FUROSEMIDE 20 MG TAB PO SCH ×2 (12:44→21:06)
[2017-01-02] MEDS: ASPIRIN 81 MG CHEW TAB CHEW SCH (12:44)
[2017-01-02] MEDS: PRASUGREL 10 MG TAB PO SCH (13:00)
--- NOTE | 2017-01-02 13:28 | HHI.HP ---
HPI Service [facility] Hospitalists Primary Care Physician No Primary Care Physician Admission Diagnosis intermittent chest pains Diagnoses: Chief Complaint: Chest pain N/V s/p fall Travel History International Travel<30 Days: No Contact w/Intl Traveler <30 Da: No Traveled to Known Affected Are: No History of Present Illness 61 yo male with PMHX of HTN, CHF with echo done 11/2016 showing EF 45-50%, HLD, CAD s/p previous CABG in 2012 and history of NSTEMI with subsequent PCI/ stenting 11/13/[address] Ivey who has been out of his medications for the past 5 days and presents to [facility] ED with complaints of chest pain. Patient is very upset about being in the hospital and states he "hates needles and all this sh "and as a result is rather belligerent when giving his history which is limited by his furtive responses. He was apparently admitted earlier to the chest pain center but left AMA refusing any further blood draws, however he returned within an hour to the ED. He complains of sharp pain in the center of his chest that began occurring intermittently yesterday with associated nausea and single episode of vomiting. The pain has now become constant and radiates down into his left arm. He denies any recent illness or fever/chills. He also reports severe headache located behind his left eye and double vision. He was recently "shipped to the [facility] in [place]" and went without his medications for the past 5 days. He also reports recent falls over the last few days that resulted in him hitting is head and he is unsure whether or not he lose consciousness. CT brain obtained in the ED was normal. Lab work obtained in the ED prior to him leaving [facility] revealed slightly elevated troponin of 0.05 and the last blood draw revealed a level of 0.06. His EKG did not show any signs of acute changes. Review of Systems Constitutional: DENIES: Fever, Chills Endocrine: DENIES: Polydipsia, Polyuria Eyes: COMPLAINS OF: Double Vision, DENIES: Vision loss Ears, nose, mouth, throat: DENIES: Throat pain, Running Nose Respiratory: DENIES: Cough, Sputum production, Shortness of breath Cardiovascular: COMPLAINS OF: Chest pain (as stated in HPI), DENIES: Palpitations, Lower Extremity Edema Gastrointestinal: COMPLAINS OF: Nausea, Vomiting (one episode yesterday), DENIES: Abdominal pain, Constipation, Diarrhea Genitourinary: DENIES: Hematuria, Dysuria Hematologic/lymphatic: DENIES: Lymphadenopathy Neurologic: COMPLAINS OF: Headache (x 1 day, behind left eye), Poor Balance ( sustained a fall and hit his head), DENIES: Localized weakness, Paresthesias Psychiatric: COMPLAINS OF: Agitation (patient very upset/angry with medical condition "I'm tired of all these fing heart attacks"), DENIES: Confusion Past Family Social History Past Medical History CAD Recent NSTEMI with subsequent PCI/stenting by Dr. Ivey 11/13/16. Patient had bare metal stent of the ramus intermedius, distal left main, proximal LAD, and thrombectomy of the left main. Followed by another NSTEMI 11/23/16 treated with optimization of medical mgmt Hx of CABG 2012 HTN Hyperlipidemia Tobacco abuse Hx of CHF with echo done in Nov showing EF 45-50% Neuropathy Chronic pain from multiple disc injuries to the neck and back s/p fall Past Surgical History CABG 2012 Heart catheterizations with stenting Reported Medications Lortab (Hydrocodone-Acetaminophen) 10-325 Mg Tab 1 Tab PO Q8H PRN Lisinopril 5 Mg Tab 2.5 Mg PO DAILY Furosemide 20 Mg Tab 20 Mg PO BID Effient (Prasugrel) 10 Mg Tab 10 Mg PO DAILY Metoprolol Tartrate 25 Mg Tab 12.5 Mg PO Q12HR Neurontin (Gabapentin) 400 Mg Cap 400 Mg PO TID Fluticasone Nasal [place] 50 Mcg/Act Naspr 1 [place] NASAL BID Lipitor (Atorvastatin Calcium) 80 Mg Tab 80 Mg PO DAILY Ventolin Hfa 18 GM Inh (Albuterol Sulfate) 90 Mcg/Act Aer 2 Puff INH Q4-6H PRN Nitroglycerin SL (Nitroglycerin) 0.3 Mg Subl 0.3 Mg SL DIRECTED PRN ONE TABLET UNDER THE TONGUE NEEDED FOR CHEST PAIN, MAY REPEAT EVERY FIVE MINUTES FOR A TOTAL OF 3 DOSES OR CALL 911 IF NO RELIEF. Protonix (Pantoprazole Sodium) 40 Mg Tab 40 Mg PO DAILY Allergies: Coded Allergies: Penicillin (Verified Allergy, Unknown, Hives, 01/02/17) Toradol (Verified Allergy, Unknown, 01/02/17) Active Ordered Medications Current Medications Medications (Trade) Dose Ordered Sig/Libby Route Start Time Stop Time Status Last Admin (NS 1000 ml Inj) 1,000 ml @ 100 mls/hr Q10H IV 01/02/17 07:00 01/02/17 08:01 (NS Flush) 2 ml UNSCH PRN FLUSH 01/02/17 07:00 (NS Flush) 2 ml BID FLUSH 01/02/17 09:00 (Zofran Inj) 4 mg Q6H PRN IVP 01/02/17 07:00 (Narcan Inj) 0.4 mg UNSCH PRN IV 01/02/17 07:00 (Aspirin Chew) 81 mg DAILY CHEW 01/02/17 11:45 (Lipitor) 80 mg DAILY PO 01/02/17 11:45 (Flonase Philippe Spr) 1 spray BID NASAL 01/02/17 21:00 (Lasix) 20 mg BID PO 01/02/17 11:45 (Neurontin) 600 mg TID PO 01/02/17 13:00 (Prinivil) 2.5 mg DAILY PO 01/03/17 09:00 (Lopressor) 12.5 mg Q12HR PO 01/02/17 21:00 (Protonix) 40 mg DAILY PO 01/03/17 09:00 (Effient) 10 mg DAILY PO 01/02/17 13:00 (Morphine Inj) 2 mg Q3H PRN IV PUSH 01/02/17 11:45 (Nitrostat Sl) 0.4 mg Q5M PRN SL 01/02/17 11:45 (Pill Splitter) 1 ea UNSCH PRN OTHER 01/02/17 12:15 (Roxicodone) 30 mg Q8H PRN PO 01/02/17 12:15 Family History Father of an WI at age 42, mother of an WI at age 92. Social History Smokes "a couple of cigarettes" daily Denies any ETOH use since 1983 Uses marijuana Physical Exam Vital Signs Vital Signs Date Time Temp Pulse Resp B/P Pulse Ox O2 Delivery O2 Flow Rate FiO2 01/02/17 08:20 97.8 78 16 128/77 99 01/02/17 08:00 75 01/02/17 07:19 81 16 99 Room Air 01/02/17 07:19 97.8 81 18 130/72 99 Room Air 01/02/17 06:22 81 20 Room Air 01/02/17 06:10 98.0 88 18 139/86 99 01/02/17 06:01 103 20 171/88 97 Physical Exam GENERAL: This is a well-nourished, well-developed patient, in no apparent distress. SKIN: No rashes, ecchymoses or lesions. Cool and dry. HEAD: Atraumatic. Normocephalic. No temporal or scalp tenderness. EYES: Pupils equal round and reactive. Extraocular motions intact. No scleral icterus. No injection or drainage. ENT: Nose without bleeding, purulent drainage or septal hematoma. Throat without erythema, tonsillar hypertrophy or exudate. Uvula midline. Airway patent. NECK: Trachea midline. No lymphadenopathy. Supple, nontender, no meningeal signs. CARDIOVASCULAR: Regular rate and rhythm without murmurs, gallops, or rubs. RESPIRATORY: Clear to auscultation. Breath sounds equal bilaterally. No wheezes , rales, or rhonchi. GASTROINTESTINAL: Abdomen soft, non-tender, nondistended. No hepato-splenomegaly , or palpable masses. No guarding. MUSCULOSKELETAL: Extremities without clubbing, cyanosis, or edema. No joint tenderness, effusion, or edema noted. No calf tenderness. NEUROLOGICAL: Awake and alert. Cranial nerves II through XII intact. Motor and sensory grossly within normal limits. Five out of 5 muscle strength in all muscle groups. Normal speech. Laboratory Laboratory Tests Test 01/02/17 07:00 Total Creatine Kinase 103 Creatine Kinase MB 4.5 Troponin I 0.06 Imaging Last [address] 01/02/17 0615 Signed Impressions: Service Date/Time: Monday, January 02, 2017 06:40 - CONCLUSION: Normal examination. Cr Tay MD Assessment and Plan Assessment and Plan 61 yo male with PMHX of HTN, HLD, CAD s/p previous CABG in 2012 and history of NSTEMI with subsequent PCI/stenting 11/13/[address] Ivey as well as NSTEMI 11/27 who has been out of his medications for the past 5 days and is admitted with complaints of chest pain. Chest pain r/o ACS - Admit on telemetry - Consult Cardiology - Morphine and Nitro prn - ASA and high dose statin daily - Continue to trend cardiac enzymes - obtain TSH and fasting lipid panel - NPO CAD with h/o CABG 2012 and recent NSTEMI s/p PCI/stenting 11/13/16 and NSTEMI 11/27 with medication noncompliance x 5 days - as above Cardiology consulted - resume meds including Effient - ASA daily HTN - elevated at presentation to ED but good control presently - resume home meds - monitor BP and adjust tx as indicated CHF, systolic with EF 45-50% by echo 11/2016 - resume Lasix - monitor for evidence of fluid overload S/p fall with closed head injury - c/o headache - episode of vomiting x 1 yesterday - CT scan brain - normal examination - monitor for postconcussive sxs - Fioricet for headache Chronic neck and back pain with h/o DDD - resume home pain medication regimen Leukocytosis - possibly reactive with recent N/V - CXR negative - UA ordered - follow up with am labs DVT prophylaxis observed Written by Joelle Osorio, acting as scribe for Dr. Hurst on 01/02/17 at 10: 25. Attending Statement The documentation accurately reflects the work performed [id number] by me, Dr. Hurst on 01/02/17 at 10:25. Joelle Osorio PA-C Jan 02, 2017 13:28 Oscar Hurst MD Jan 02, 2017 22:42
[2017-01-02] MEDS: ACETAMIN 325 MG/BUTALBITAL 50 MG/CAFFEINE 40 MG TAB PO PRN ×2 (17:12→23:48)
[2017-01-02 18:24] LABS: BLOOD, URINE NEG (NEG); COMMENT (UR) CULT NOT INDICATED; CULTURE IF INDICATED CULT NOT INDICATED; GLUCOSE,URINE NEG (NEG); HYALINE CAST, URINE 1 /lpf (RARE); KETONE, URINE NEG (NEG); MUCUS URINE FEW /lpf (OCC); NITRITE,URINE NEG (NEG); PH, URINE 5.5 (5.0-8.5); URINE COLOR YELLOW (YELLW/STRAW)
[2017-01-02] MEDS ORDERED: PRASUGREL 10 MG TAB PO ONE (18:30)
[2017-01-02] MEDS ORDERED: METOPROLOL TARTRATE 25 MG TAB PO SCH (21:00)
[2017-01-02] MEDS: FLUTICASONE PROPIONATE 50 MCG/ACT 16 GM NASAL SPRAY NASAL SCH (21:00)
[2017-01-02] MEDS: METOPROLOL TARTRATE 25 MG TAB PO SCH (21:06)
--- NOTE | 2017-01-02 21:55 | EKG ---
Date Performed: 01/02/2017 Time Performed: 06:25:59 PTAGE: 61 years EKG: Sinus rhythm NORMAL ECG PREVIOUS TRACING : 01/02/2017 06.25 Compared to prior tracing no significant change DOCTOR: Jennifer Escobar Interpretating Date/Time 01/02/2017 21:54:39
[2017-01-03] VITALS (8 sets, daily range): BP systolic 81–112; BP diastolic 52–64; PULSE 58–86; RESP 20; TEMP 96.1–98.2; O2SAT 95–97
[2017-01-03] MEDS: SODIUM CHLOR 0.9% 1000 ML INJ 1,000 ML IV SCH ×3 (03:00→23:00)
[2017-01-03 04:49] LABS: AUTOMATED NEUTROPHIL # 4.7 TH/MM3 (1.8-7.7); BASOPHIL # 0.1 TH/MM3 (0-0.2); BASOPHIL % 0.8 % (0.0-2.0); EOSINOPHIL # 0.3 TH/MM3 (0-0.4); EOSINOPHIL % 3.1 % (0.0-4.0); HEMATOCRIT 39.7 % (39.0-51.0); HEMO FLAGS DIFF FINAL; LYMPH % 37.5 % (9.0-44.0); LYMPHOCYTE # 3.4 TH/MM3 (1.0-4.8); MEAN CORPUSCULAR HEMOGLOBIN 27.4 PG (27.0-34.0); MONO % 5.5 % (0.0-8.0); NEUT % 53.1 % (16.0-70.0); PLATELET COUNT 194 TH/MM3 (150-450); RED BLOOD COUNT 4.78 MIL/MM3 (4.50-5.90); RED CELL DISTRIBUTION WIDTH 16.7 % (11.6-17.2); WHITE BLOOD COUNT 8.9 TH/MM3 (4.0-11.0)
[2017-01-03 05:17] LABS: BICARBONATE 28.6 MEQ/L (21.0-32.0); MAGNESIUM 2.3 MG/DL (1.5-2.5); POTASSIUM 3.8 MEQ/L (3.5-5.1)
[2017-01-03 05:25] LABS: HDL CHOLESTEROL 44.4 MG/DL (40.0-60.0)
--- NOTE | 2017-01-03 05:34 | MB ---
cc: JENNIFER TRINH DATE OF CONSULTATION 01/02/2017 HISTORY OF PRESENT ILLNESS Mr. Zazueta is a 61-year-old white male with a history of coronary artery disease, coronary bypass in 2012, non-ST elevation myocardial infarction and coronary stenting in November of [address] Ivey. He has been out of his medications for the last five days and presented with sharp left-sided chest discomfort. This is different from the angina he had prior to his stents. He was recently hospitalized due to possible suicidal threats and he states he was not taking his cardiac medications for the past five days. 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 He had another fall at home. He complains of headache behind his left eye, double vision and shakes. He was evaluated for his fall and CT of the brain in the emergency room was done and unremarkable. His EKG at this time shows no acute changes and his troponin was borderline at 0.05 and 0.06. He still complains of intermittent chest discomfort. PAST MEDICAL HISTORY 1. Positive for bare metal stent of the ramus intermedius, distal left main, proximal LAD and thrombectomy of the left main on November 13. 2. He had non-STEMI on November 23 which was treated with medical management. 3. History of two-vessel bypass in [address] Elder. 4. History of hypertension. 5. Dyslipidemia. 6. Smoking. 7. Ischemic cardiopathy with ejection fraction of 45-50%. 8. Neuropathic chronic pain from disc injuries to the neck. 9. Multiple falls. CARDIAC CATHETERIZATION On 11/13/2016 showed under-deployed stent in the left main and LAD, stent thrombosis in the proximal LAD into a diagonal branch. Mid-LAD was occluded. The right coronary was diffusely diseased with 80% stenosis in the distal segment, 70% ostial stenosis of the circumflex, 75% stenosis of the ramus intermedius, widely patent [place] to LAD and patent vein graft to the right coronary artery with diffuse disease in the posterior descending and posterolateral branches. The patient was switched to Effient at that time after his interventions. MEDICATIONS 1. Lortab. 2. Lisinopril. 3. Furosemide. 4. Effient. 5. Metoprolol. 6. Neurontin. 7. Fluticasone. 8. Lipitor. 9. Ventolin. 10. Nitroglycerin. 11. Protonix. ALLERGIES PENICILLIN. TORADOL. SOCIAL HISTORY The patient is a smoker. He has not drank alcohol or used drugs since 1983. 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 FAMILY HISTORY Positive for heart disease in his parents. REVIEW OF SYSTEMS Otherwise negative. PHYSICAL EXAMINATION VITAL SIGNS: Blood pressure 133/76, pulse 68 and regular. HEENT: Negative. NECK: 2+ carotid upstrokes. No bruits. LUNGS: Clear. HEART: Regular. No murmur, gallop or rub. ABDOMEN: Soft. No bruits. EXTREMITIES: Without edema. 2+ distal pulses. NEUROLOGIC: Grossly nonfocal. The patient is exhibiting tremor. EKG Reviewed and showed normal sinus rhythm with normal axis and intervals, no acute changes. LABS CK 103, CKMB 4.5. Troponin 0.06. DIAGNOSIS 1. Unspecified angina. 2. History of coronary bypass and non-ST elevation myocardial infarction with coronary intervention of proximal left coronary system with both grafts patent on the recent cardiac catheterization. 3. Ischemic cardiomyopathy with mild left ventricular systolic dysfunction. 4. Hypertension. 5. Dyslipidemia. 6. Recent fall. 7. Smoking. DISPOSITION 1. Ms. Zazueta was started back on his medications including Effient, baby aspirin, metoprolol, lisinopril and furosemide. He will continue lipid lowering therapy with atorvastatin. 2. He will be scheduled for adenosine myocardial perfusion study tomorrow to evaluate his ischemic burden. 3. We will obtain serial enzymes and EKGs. 4. I will follow him for cardiology during his hospitalization. Jennifer Trinh MD OQ/SSB /6:01 PM /5:03 AM ANTOINETTE
[2017-01-03] MEDS: ISOSORBIDE MONONITRATE 30 MG TAB PO SCH (06:54)
--- NOTE | 2017-01-03 07:21 | RADRPT ---
EXAM DATE/TIME: 01/03/2017 06:58 [facility] COMPARISON: CT BRAIN W/O CONTRAST, January 02, 2017, 6:40. INDICATIONS : Trauma; fell and hit head. RADIATION DOSE: 56.35 CTDIvol (mGy) MEDICAL HISTORY : Cardiovascular disease. Hypertension. Chronic obstructive pulmonary disease. SURGICAL HISTORY : CABG Carotid stent. ENCOUNTER: Initial ACUITY: 1 day PAIN SCALE: 2/10 LOCATION: cranial TECHNIQUE: Multiple contiguous axial images were obtained of the head. Using automated exposure control and adj ustment of the mA and/or kV according to patient size, radiation dose was kept as low as reasonably a chievable to obtain optimal diagnostic quality images. FINDINGS: CEREBRUM: The ventricles are normal for age. No evidence of midline shift, mass lesion, hemorrhage or acute in farction. No extra-axial fluid collections are seen. POSTERIOR FOSSA: The cerebellum and brainstem are intact. The 4th ventricle is midline. The cerebellopontine angle i s unremarkable. EXTRACRANIAL: The visualized portion of the orbits is intact. Bilateral nasal fractures. SKULL: The calvaria is intact. No evidence of skull fracture. CONCLUSIO N: Bilateral nasal fractures of indeterminate age. No acute intracranial abnormality. Darren Mueller MD on January 03, 2017 at 7:18 Board Certified Radiologist. This report was verified electronically.
--- NOTE | 2017-01-03 08:59 | HHI.PR ---
Subjective Remarks Follow up on patient with chest pain. Continues to have intermittent chest pain overnight. No SOB. No N/V. Patient reports falling this morning, having some tenderness over right side of face. Xrays done. States he has fallen 12+ times in the past few months, some falls precipitated by dizziness but some occur suddenly with no warning. Patient occasionally has chest pain and SOB associated with falls but often times does not. Denies any LOC or postictal state. Denies any diaphoresis or N/V. 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 Reports uncontrollable shaking. Objective Vitals Vital Signs Date Time Temp Pulse Resp B/P Pulse Ox O2 Delivery O2 Flow Rate FiO2 01/03/17 04:07 97.6 58 20 111/64 97 01/03/17 02:22 62 01/02/17 23:59 97.4 63 20 113/67 97 01/02/17 20:04 98.0 81 20 128/71 96 01/02/17 17:48 68 20 133/76 98 I/O 01/02/17 01/02/17 01/02/17 01/03/17 01/03/17 01/03/17 07:00 15:00 23:00 07:00 15:00 23:00 Intake Total 600 ml Balance 600 ml Intake IV Total 600 ml # Voids 1 Result Diagram: 01/03/17 0413 01/03/17 0413 Imaging Last [address] 01/02/17 0615 Signed Impressions: Service Date/Time: Monday, January 02, 2017 06:40 - CONCLUSION: Normal examination. Cr Tay MD Objective Remarks GENERAL: This is a well-nourished, well-developed patient, in no apparent distress. SKIN: No rashes, ecchymoses or lesions. Cool and dry. HEAD: Atraumatic. Normocephalic. No temporal or scalp tenderness. EYES: Pupils equal round and reactive. Extraocular motions intact. No scleral icterus. No injection or drainage. ENT: Nose without bleeding, purulent drainage or septal hematoma. Throat without erythema, tonsillar hypertrophy or exudate. Uvula midline. Airway patent. NECK: Trachea midline. No lymphadenopathy. Supple, nontender, no meningeal signs. CARDIOVASCULAR: Regular rate and rhythm without murmurs, gallops, or rubs. RESPIRATORY: Clear to auscultation. Breath sounds equal bilaterally. No wheezes , rales, or rhonchi. GASTROINTESTINAL: Abdomen soft, non-tender, nondistended. No hepato-splenomegaly , or palpable masses. No guarding. MUSCULOSKELETAL: Extremities without clubbing, cyanosis, or edema. No joint tenderness, effusion, or edema noted. No calf tenderness. NEUROLOGICAL: Awake and alert. Cranial nerves II through XII intact. Motor and sensory grossly within normal limits. Five out of 5 muscle strength in all muscle groups. Normal speech. Medications and IVs Current Medications Medications (Trade) Dose Ordered Sig/Libby Route Start Time Stop Time Status Last Admin (NS 1000 ml Inj) 1,000 ml @ 100 mls/hr Q10H IV 01/02/17 07:00 01/02/17 08:01 (NS Flush) 2 ml UNSCH PRN FLUSH 01/02/17 07:00 (NS Flush) 2 ml BID FLUSH 01/02/17 09:00 01/02/17 21:00 (Zofran Inj) 4 mg Q6H PRN IVP 01/02/17 07:00 (Narcan Inj) 0.4 mg UNSCH PRN IV 01/02/17 07:00 (Aspirin Chew) 81 mg DAILY CHEW 01/02/17 11:45 01/02/17 12:44 (Lipitor) 80 mg DAILY PO 01/02/17 11:45 01/02/17 12:44 (Flonase Philippe Spr) 1 spray BID NASAL 01/02/17 21:00 (Lasix) 20 mg BID PO 01/02/17 11:45 01/02/17 21:06 (Neurontin) 600 mg TID PO 01/02/17 13:00 01/02/17 17:12 (Prinivil) 2.5 mg DAILY PO 01/03/17 09:00 (Protonix) 40 mg DAILY PO 01/03/17 09:00 (Effient) 10 mg DAILY PO 01/02/17 13:00 (Morphine Inj) 2 mg Q3H PRN IV PUSH 01/02/17 11:45 (Nitrostat Sl) 0.4 mg Q5M PRN SL 01/02/17 11:45 (Pill Splitter) 1 ea UNSCH PRN OTHER 01/02/17 12:15 (Roxicodone) 30 mg Q8H PRN PO 01/02/17 12:15 01/03/17 04:41 (Fioricet 325-50-40) 1 tab Q6H PRN PO 01/02/17 13:15 01/02/17 23:48 (Lopressor) 25 mg Q12HR PO 01/02/17 21:00 01/02/17 21:06 (Imdur) 30 mg DAILY@07 PO 01/03/17 07:00 01/03/17 06:54 (Xanax) 1 mg BID PRN PO 01/03/17 08:30 A/P Assessment and Plan 61 yo male with PMHX of HTN, HLD, CAD s/p previous CABG in 2012 and history of NSTEMI with subsequent PCI/stenting 11/13/[address] Ivey as well as NSTEMI 11/27 who has been out of his medications for the past 5 days and is admitted with complaints of chest pain. Chest pain r/o ACS - continue on telemetry - Cardiology following - appreciate their assistance. Discussed with Dr. Escobar - patient had negative stress test 2 weeks, no indication for stress testing at this time. Recommends Neurology consult for recurrent falls and headache. Discussed with patient importance of medication compliance. Patient stated understanding. - Morphine and Nitro prn - ASA and high dose statin daily - Troponins - 0.05 -> 0.06 -> 0.05 - TSH WNL - lipid panel TG 158, LDL 59, HDL 44.4, continue on high dose statin - heart healthy diet Recurrent falls, headaches and double vision, s/p fall with closed head injury - CT head neg in ED, repeat CT s/p fall this am shows bilateral nasal fractures of indeterminate age - Neurology consult requested - blood sugars 98-129 - heart rate 58-81 - fall precautions - obtain orthostatic BP measurements - Carotid US - plan for 24 Holter monitor at time of discharge - c/w Fioricet for headache - continue with PT CAD with h/o CABG 2012 and recent NSTEMI s/p PCI/stenting 11/13/16 and NSTEMI 11/27 with medication noncompliance x 5 days - as above Cardiology following - continue home medications - ASA daily HTN - hypotensive measurement today 80/60 - hold BP meds if systolic less than 110, encourage po intake - continue home meds, Imdur added and Lopressor increased by cardiology following admission - monitor BP and adjust tx as indicated CHF, systolic with EF 45-50% by echo 11/2016 - continue on Lasix - monitor for evidence of fluid overload Chronic neck and back pain with h/o DDD - continue with home pain medication regimen Anxiety - resume Xanax prn Leukocytosis - resolved - possibly reactive with recent N/V - CXR negative - UA negative DVT prophylaxis observed Discussed with Dr. Hurst Attending Statement The exam, history, and the medical decision-making described in the above note were completed with the assistance of the mid-level provider. I reviewed and agree with the findings presented. I attest that I had a [id number] encounter with the patient on the same day, and personally performed and documented my assessment and findings in the medical record. Joelle Osorio PA-C Jan 03, 2017 08:59 Oscar Hurst MD Jan 04, 2017 08:48
[2017-01-03] MEDS: SODIUM CHLORIDE 0.9% FLUSH 5 ML FLUSH FLUSH SCH ×2 (09:22→21:00)
[2017-01-03] MEDS: FLUTICASONE PROPIONATE 50 MCG/ACT 16 GM NASAL SPRAY NASAL SCH ×2 (09:22→21:00)
[2017-01-03] MEDS: PRASUGREL 10 MG TAB PO SCH (09:23)
[2017-01-03] MEDS: PANTOPRAZOLE SOD 40 MG DELAYED RELEASE TAB PO SCH (09:23)
[2017-01-03] MEDS: ATORVASTATIN 80 MG TAB PO SCH (09:23)
[2017-01-03] MEDS: ASPIRIN 81 MG CHEW TAB CHEW SCH (09:23)
[2017-01-03] MEDS: GABAPENTIN 300 MG CAP PO SCH ×3 (09:24→17:29)
[2017-01-03] MEDS: METOPROLOL TARTRATE 25 MG TAB PO SCH ×2 (09:24→21:00)
[2017-01-03] MEDS: FUROSEMIDE 20 MG TAB PO SCH ×2 (09:24→22:01)
[2017-01-03] MEDS: LISINOPRIL 5 MG TAB PO SCH (09:24)
[2017-01-03] MEDS: ACETAMIN 325 MG/BUTALBITAL 50 MG/CAFFEINE 40 MG TAB PO PRN ×2 (09:30→22:00)
[2017-01-03] MEDS: ALPRAZolam 1 MG TAB PO PRN ×2 (09:30→17:29)
--- NOTE | 2017-01-03 10:22 | PD.CARD.PN ---
Subjective Subjective Remarks Occ atypical CP, mild SOB, still has tremor, fell again this AM Objective Medications Current Medications Medications (Trade) Dose Ordered Sig/Libby Route Start Time Stop Time Status Last Admin (NS 1000 ml Inj) 1,000 ml @ 100 mls/hr Q10H IV 01/02/17 07:00 01/02/17 08:01 (NS Flush) 2 ml UNSCH PRN FLUSH 01/02/17 07:00 (NS Flush) 2 ml BID FLUSH 01/02/17 09:00 01/03/17 09:22 (Zofran Inj) 4 mg Q6H PRN IVP 01/02/17 07:00 (Narcan Inj) 0.4 mg UNSCH PRN IV 01/02/17 07:00 (Aspirin Chew) 81 mg DAILY CHEW 01/02/17 11:45 01/03/17 09:23 (Lipitor) 80 mg DAILY PO 01/02/17 11:45 01/03/17 09:23 (Flonase Philippe Spr) 1 spray BID NASAL 01/02/17 21:00 01/03/17 09:22 (Lasix) 20 mg BID PO 01/02/17 11:45 01/03/17 09:24 (Neurontin) 600 mg TID PO 01/02/17 13:00 01/03/17 09:24 (Prinivil) 2.5 mg DAILY PO 01/03/17 09:00 01/03/17 09:24 (Protonix) 40 mg DAILY PO 01/03/17 09:00 01/03/17 09:23 (Effient) 10 mg DAILY PO 01/02/17 13:00 01/03/17 09:23 (Morphine Inj) 2 mg Q3H PRN IV PUSH 01/02/17 11:45 (Nitrostat Sl) 0.4 mg Q5M PRN SL 01/02/17 11:45 (Pill Splitter) 1 ea UNSCH PRN OTHER 01/02/17 12:15 (Roxicodone) 30 mg Q8H PRN PO 01/02/17 12:15 01/03/17 04:41 (Fioricet 325-50-40) 1 tab Q6H PRN PO 01/02/17 13:15 01/03/17 09:30 (Lopressor) 25 mg Q12HR PO 01/02/17 21:00 01/03/17 09:24 (Imdur) 30 mg DAILY@07 PO 01/03/17 07:00 01/03/17 06:54 (Xanax) 1 mg BID PRN PO 01/03/17 08:30 01/03/17 09:30 Vital Signs / I&O Vital Signs Date Time Temp Pulse Resp B/P Pulse Ox O2 Delivery O2 Flow Rate FiO2 01/03/17 04:07 97.6 58 20 111/64 97 01/03/17 02:22 62 01/02/17 23:59 97.4 63 20 113/67 97 01/02/17 20:04 98.0 81 20 128/71 96 01/02/17 17:48 68 20 133/76 98 I/O 01/02/17 01/02/17 01/02/17 01/03/17 01/03/17 01/03/17 07:00 15:00 23:00 07:00 15:00 23:00 Intake Total 600 ml Balance 600 ml Intake IV Total 600 ml # Voids 1 Physical Exam GENERAL: Mildly agitated. SKIN: Warm and dry. HEAD: Normocephalic. EYES: No scleral icterus. No injection or drainage. NECK: Supple, trachea midline. No JVD or lymphadenopathy. CARDIOVASCULAR: Regular rate and rhythm without murmurs, gallops, or rubs. RESPIRATORY: Breath sounds equal bilaterally. No accessory muscle use. GASTROINTESTINAL: Abdomen soft, non-tender, nondistended. MUSCULOSKELETAL: No cyanosis, or edema. NEURO: tremor Laboratory Laboratory Tests Test 01/02/17 01/02/17 01/03/17 16:59 18:15 04:13 Total Creatine Kinase 105 U/L Troponin I 0.05 NG/ML Urine Color YELLOW Urine Turbidity CLEAR Urine pH 5.5 Urine Specific [place] 1.017 Urine Protein NEG mg/dL Urine Glucose (UA) NEG mg/dL Urine Ketones NEG mg/dL Urine Occult Blood NEG Urine Nitrite NEG Urine Bilirubin NEG Urine Urobilinogen LESS THAN 2.0 MG/DL Urine Leukocyte Esterase NEG Urine RBC LESS THAN 1 /hpf Urine WBC LESS THAN 1 /hpf Urine Hyaline Casts 1 /lpf Urine Mucus FEW /lpf Microscopic Urinalysis Comment CULT NOT INDICATED White Blood Count 8.9 TH/MM3 Red Blood Count 4.78 MIL/MM3 Hemoglobin 13.1 GM/DL Hematocrit 39.7 % Mean Corpuscular Volume 83.0 FL Mean Corpuscular Hemoglobin 27.4 PG Mean Corpuscular Hemoglobin 33.0 % Concent Red Cell Distribution Width 16.7 % Platelet Count 194 TH/MM3 Mean Platelet Volume 9.0 FL Neutrophils (%) (Auto) 53.1 % Lymphocytes (%) (Auto) 37.5 % Monocytes (%) (Auto) 5.5 % Eosinophils (%) (Auto) 3.1 % Basophils (%) (Auto) 0.8 % Neutrophils # (Auto) 4.7 TH/MM3 Lymphocytes # (Auto) 3.4 TH/MM3 Monocytes # (Auto) 0.5 TH/MM3 Eosinophils # (Auto) 0.3 TH/MM3 Basophils # (Auto) 0.1 TH/MM3 CBC Comment DIFF FINAL Differential Comment Sodium Level 141 MEQ/L Potassium Level 3.8 MEQ/L Chloride Level 105 MEQ/L Carbon Dioxide Level 28.6 MEQ/L Anion Gap 7 MEQ/L Blood Urea Nitrogen 26 MG/DL Creatinine 1.05 MG/DL Estimat Glomerular Filtration 72 ML/MIN Rate Random Glucose 98 MG/DL Calcium Level 8.7 MG/DL Magnesium Level 2.3 MG/DL Triglycerides Level 158 MG/DL Cholesterol Level 135 MG/DL LDL Cholesterol 59 MG/DL HDL Cholesterol 44.4 MG/DL Cholesterol/HDL Ratio 3.04 RATIO Thyroid Stimulating Hormone 1.230 uIU/ML 3rd Gen Imaging Last Impressions Head CT 01/02/17 0615 Signed Impressions: Service Date/Time: Monday, January 02, 2017 06:40 - CONCLUSION: Normal examination. Cr Tay MD Assessment and Plan Problem List: (1) Non-cardiac chest pain (2) CAD (coronary artery disease) (3) Ischemic cardiomyopathy (4) Hypertension (5) Hyperlipidemia (6) Adjustment disorder with mixed anxiety and depressed mood (7) Hx of CABG (8) H/O heart artery stent (9) Frequent falls Assessment and Plan Recent nuclear stress test c/w old lateral RI with small amount of periinfarction ischemia. CP atypical. H/o frequent falls. Continue Effient and baby ASA long-term due to recent complex coronary intervention. Continue aggressive risk factor modification. Counseled to quit smoking. Recommend neurology evaluation. Problem Qualifiers (1) CAD (coronary artery disease): Jennifer Escobar MD Jan 03, 2017 10:22
--- NOTE | 2017-01-03 14:21 | RADRPT ---
EXAM DATE/TIME: 01/03/2017 11:39 [facility] COMPARISON: No previous studies available for comparison. INDICATIONS : Syncope. MEDICAL HISTORY : Myocardial infarction. Hypercholesterolemia. Gastroesophageal reflux disease. CHF. Hyperlipidemia. Re nal calculi. Measles. SURGICAL HISTORY : Coronary artery stent. CABG. ENCOUNTER: Initial ACUITY: 1 day PAIN SCORE: 3/10 LOCATION: Bilateral neck PEAK SYSTOLIC VELOCITIES (cm/sec): ICA/CCA RATIO: Right: 0.9 Left: 0.9 ICA: Right: 58 Left: 58 CCA: Right: 65 Left: 64 ECA: Right: 111 Left: 95 VERTEBRAL: Right: 30 antegrade Left: 46 antegrade Elevated flow velocities and ICA/CCA ratios have been found to correlate with increased degrees of vessel stenosis, calculated as percentage of diameter relative to a normal segment of distal ICA/CCA FINDINGS: RIGHT CAROTID: No significant stenosis is visualized. The waveforms are within normal limits. LEFT CAROTID: No significant stenosis is visualized. The waveforms are within normal limits. VERTEBRAL ARTERIES: Antegrade flow is seen in both vertebral arteries. MISCELLANEOUS: None. CONCLUSION: No evidence of flow-limiting carotid stenosis. Cr Meza MD on January 03, 2017 at 14:16 Board Certified Radiologist. This report was verified electronically.
--- NOTE | 2017-01-03 16:42 | MB ---
cc: AUBRIE GO M.D. DATE OF CONSULTATION: 01/03/2017 REASON FOR CONSULTATION: The patient is a 61-year-old man who was admitted yesterday through the emergency room here worsening chest pain, stuttering course of chest pain 06/20. I am asked to him for falls. The patient was just over in [facility] about a week ago, had a massive work up for the same complaints which was all negative. He said he fell in the hospital, but it turned out that he was actually malingering and has no place to live. He was just staying there and extending his stay, would have a different complaint every day. He is actually found washing his clothes in the sink at one point, even though he said he could not walk. MEDICATIONS: 1. Oxycodone 2. Gabapentin 3. Alprazolam 4. 81 of aspirin 5. nitroglycerin 6. Lipitor 7. fluconazole 8. Metoprolol 9. Effient. 10. Lasix 11. Lisinopril ALLERGIES TORADOL PENICILLIN PAST MEDICAL HISTORY: 1. Depression. 2. Cardiac catheterization. 3. Stenting. 4. cholesterol 5. Chest pain. 6. Patient was recently at [facility], he was also at [facility], I think he is making the rounds of the Hospitals. 7. Kidney stones. 8. Neuropathy. 9. Migraines 10. Myocardial infarction according to the chart. PHYSICAL EXAMINATION: VITAL SIGNS: On examination he has been in sinus rhythm afebrile, 69, 20, 81/52 is his lowest blood pressure, that was lying down. He has had some low blood pressures in the past on 12/12/2016. NECK: There are no carotid bruits. HEART: Regular rhythm at that a murmur. HEAD, EYES, EARS, NOSE, AND THROAT: Pupils are equally esteves full. Extraocular intact without nystagmus. Face is symmetric. Tongue was midline with no drift. NEUROLOGIC: He had normal strength in all extremities bilaterally past after he is he would weakness on the right but as best as was normal strength. DTRs are trace throughout. Toes downgoing bilaterally. Pinprick was intact. He is not ataxic on [id number]. Gait is actually quite steady. Speech is fluent. He is not aphasic. LABORATORY DATA CBC was normal, sed rate was normal. Urine drug screen positive for benzos only. UA negative. Basic metabolic profile normal. LDL normal thyroid normal. B12 was low normal in 2011. Coags normal. RADIOLOGIC: CT scan of the brain here bilateral nasal fractures indeterminate age, otherwise negative. I reviewed his CT scan and it appears normal. IMPRESSION He has had a large neuro workup over at [facility] just recently. It was my impression last time he was in the hospital that he was malingering. PLAN: I have recommended that the med team get the workup in my notes from [facility] for him, done about a week or two ago. We will have physical therapy ambulate him the only thing that I would add here is that we can check some orthostatics on him. Otherwise neurologically khalil he can be discharged. MD AFSHAN Yost/vanita /4:07 PM /4:20 PM
[2017-01-04] VITALS (13 sets, daily range): BP systolic 92–117; BP diastolic 57–69; PULSE 62–87; RESP 16–19; TEMP 95.4–98.2; O2SAT 95–99
[2017-01-04] MEDS: ACETAMIN 325 MG/BUTALBITAL 50 MG/CAFFEINE 40 MG TAB PO PRN ×3 (04:32→20:57)
[2017-01-04] MEDS: ALPRAZolam 1 MG TAB PO PRN ×3 (04:55→16:59)
[2017-01-04] MEDS: ISOSORBIDE MONONITRATE 30 MG TAB PO SCH (06:35)
--- NOTE | 2017-01-04 08:01 | HHI.PR ---
Objective Vital Signs Date Time Temp Pulse Resp B/P Pulse Ox O2 Delivery O2 Flow Rate FiO2 01/04/17 03:52 62 01/04/17 00:43 98.0 77 19 103/57 95 01/03/17 21:51 100/61 01/03/17 20:28 98.2 68 20 94/53 95 01/03/17 16:00 96.1 67 20 96/60 95 01/03/17 12:30 112/62 01/03/17 12:00 96.5 69 20 81/52 95 I/O 01/03/17 01/03/17 01/03/17 01/04/17 01/04/17 01/04/17 07:00 15:00 23:00 07:00 15:00 23:00 Intake Total 742 ml Balance 742 ml Intake Oral 240 ml IV Total 502 ml # Voids 4 2 Result Diagram: 01/03/17 0413 01/03/17 0413 Objective Remarks up walking around brushing teeth Assessment and Plan Assessment and Plan imp his bp too low needs med adjusted o/w he can dc neurowise follow standing bps none done yet Jeremias Tate MD Jan 04, 2017 08:01
--- NOTE | 2017-01-04 08:11 | HHI.PR ---
Subjective Remarks Follow up for chest pain, frequent falls. The patient is upset about his discussion with the neurologist last night, says if he sees him again then he's packing up everything and leaving. The patient complains today of his entire right side of his body feeling numb. He asks for my pen then pokes his right arm and leg saying he can't feel anything. He reports chest pains last night after speaking with the neurologist, says they were just "stress pains". Otherwise, he has no other medical complaints. He says he is not homeless anymore. Objective Vitals Vital Signs Date Time Temp Pulse Resp B/P Pulse Ox O2 Delivery O2 Flow Rate FiO2 01/04/17 08:00 75 117/69 01/04/17 03:52 62 01/04/17 00:43 98.0 77 19 103/57 95 01/03/17 21:51 100/61 01/03/17 20:28 98.2 68 20 94/53 95 01/03/17 16:00 96.1 67 20 96/60 95 01/03/17 12:30 112/62 01/03/17 12:00 96.5 69 20 81/52 95 I/O 01/03/17 01/03/17 01/03/17 01/04/17 01/04/17 01/04/17 07:00 15:00 23:00 07:00 15:00 23:00 Intake Total 742 ml Balance 742 ml Intake Oral 240 ml IV Total 502 ml # Voids 4 2 Result Diagram: 01/03/17 0413 01/03/17 0413 Imaging Last Impressions Carotid Artery Ultrasound 01/03/17 0000 Signed Impressions: Service Date/Time: December 11:39 - CONCLUSION: No evidence of flow-limiting carotid stenosis. Cr Meza MD Head CT 01/02/17 0615 Signed Impressions: Service Date/Time: Monday, January 02, 2017 06:40 - CONCLUSION: Normal examination. Cr Tay MD Objective Remarks GENERAL: Well-nourished, well-developed male patient in NAD. SKIN: Warm and dry. No rash. HEAD: Normocephalic. Atraumatic. EYES: Pupils equal and round. No scleral icterus. No injection or drainage. ENT: No nasal bleeding or discharge. Mucous membranes pink and moist. NECK: Supple. Trachea midline. CARDIOVASCULAR: Regular rate and rhythm. S1, S2 noted. No murmur appreciated. RESPIRATORY: No accessory muscle use. Clear to auscultation. Breath sounds equal bilaterally. GASTROINTESTINAL: Abdomen soft, non-tender, nondistended. Normoactive bowel sounds x4. MUSCULOSKELETAL: No obvious deformities. Extremities without clubbing, cyanosis , or edema. NEUROLOGICAL: Awake and alert. No obvious cranial nerve deficits. Motor grossly within normal limits. 5/5 muscle strength in bilateral upper and lower extremities. Normal speech. Medications and IVs Current Medications Medications (Trade) Dose Ordered Sig/Libby Route Start Time Stop Time Status Last Admin (NS 1000 ml Inj) 1,000 ml @ 100 mls/hr Q10H IV 01/02/17 07:00 01/03/17 13:20 (NS Flush) 2 ml UNSCH PRN FLUSH 01/02/17 07:00 (NS Flush) 2 ml BID FLUSH 01/02/17 09:00 01/03/17 09:22 (Zofran Inj) 4 mg Q6H PRN IVP 01/02/17 07:00 (Narcan Inj) 0.4 mg UNSCH PRN IV 01/02/17 07:00 (Aspirin Chew) 81 mg DAILY CHEW 01/02/17 11:45 01/03/17 09:23 (Lipitor) 80 mg DAILY PO 01/02/17 11:45 01/03/17 09:23 (Flonase Philippe Spr) 1 spray BID NASAL 01/02/17 21:00 01/03/17 09:22 (Lasix) 20 mg BID PO 01/02/17 11:45 01/03/17 22:01 (Neurontin) 600 mg TID PO 01/02/17 13:00 01/03/17 17:29 (Prinivil) 2.5 mg DAILY PO 01/03/17 09:00 01/03/17 09:24 (Protonix) 40 mg DAILY PO 01/03/17 09:00 01/03/17 09:23 (Effient) 10 mg DAILY PO 01/02/17 13:00 01/03/17 09:23 (Morphine Inj) 2 mg Q3H PRN IV PUSH 01/02/17 11:45 (Nitrostat Sl) 0.4 mg Q5M PRN SL 01/02/17 11:45 (Pill Splitter) 1 ea UNSCH PRN OTHER 01/02/17 12:15 (Roxicodone) 30 mg Q8H PRN PO 01/02/17 12:15 01/04/17 06:35 (Fioricet 325-50-40) 1 tab Q6H PRN PO 01/02/17 13:15 01/04/17 04:32 (Lopressor) 25 mg Q12HR PO 01/02/17 21:00 01/03/17 09:24 (Imdur) 30 mg DAILY@07 PO 01/03/17 07:00 01/04/17 06:35 (Xanax) 1 mg BID PRN PO 01/03/17 08:30 01/04/17 04:55 Urinary Catheter: No Vascular Central Line Catheter: No A/P Assessment and Plan 61 yo male with PMHX of HTN, HLD, CAD s/p previous CABG in 2012 and history of NSTEMI with subsequent PCI/stenting 11/13/[address] Ivey as well as NSTEMI 11/27 who has been out of his medications for the past 5 days and is admitted with complaints of chest pain. Chest pain r/o ACS - Cardiology following - appreciate their assistance. Discussed with Dr. Escobar - patient had negative stress test 2 weeks ago, no indication for stress testing at this time. Recommends Neurology consult for recurrent falls and headache. - Discussed with patient importance of medication compliance. Patient verbalized understanding. - Morphine and Nitro prn - Continue ASA and high dose statin daily - Troponins - 0.05 -> 0.06 -> 0.05 - TSH wnl - lipid panel TG 158, LDL 59, HDL 44.4, continue on high dose statin - continue on telemetry - heart healthy diet Recurrent falls, headaches and double vision, s/p fall with closed head injury - CT head neg in ED, repeat CT s/p fall this am shows bilateral nasal fractures of indeterminate age - Neurology consult requested - blood sugars 98-129, heart rate 58-81 - fall precautions - obtain orthostatic BP measurements - Carotid US unremarkable - check holter monitor - c/w Fioricet for headache - continue with PT CAD with h/o CABG 2012 and recent NSTEMI s/p PCI/stenting 11/13/16 and NSTEMI 11/27 with medication noncompliance x 5 days - as above Cardiology following - continue home medications - ASA daily HTN - hypotensive measurement 80/60 - hold BP meds if systolic less than 110, encourage po intake - continue home meds, Imdur added and Lopressor increased by cardiology following admission - monitor BP and adjust tx as indicated CHF, systolic with EF 45-50% by echo 11/2016 - continue on Lasix - monitor for evidence of fluid overload Chronic neck and back pain with h/o DDD - continue with home pain medication regimen Anxiety - resume Xanax prn Leukocytosis - resolved - possibly reactive with recent N/V - CXR and UA negative DVT prophylaxis: SCDs/teds Discussed with Dr. Hurst Attending Statement The exam, history, and the medical decision-making described in the above note were completed with the assistance of the mid-level provider. I reviewed and agree with the findings presented. I attest that I had a [id number] encounter with the patient on the same day, and personally performed and documented my assessment and findings in the medical record. Mellissa Asif PA-C Jan 04, 2017 08:11 Oscar Hurst MD Jan 04, 2017 23:48
[2017-01-04] MEDS: FLUTICASONE PROPIONATE 50 MCG/ACT 16 GM NASAL SPRAY NASAL SCH ×2 (09:37→20:59)
[2017-01-04] MEDS: PRASUGREL 10 MG TAB PO SCH (09:38)
[2017-01-04] MEDS: ASPIRIN 81 MG CHEW TAB CHEW SCH (09:38)
[2017-01-04] MEDS: LISINOPRIL 5 MG TAB PO SCH (09:38)
[2017-01-04] MEDS: SODIUM CHLOR 0.9% 1000 ML INJ 1,000 ML IV SCH ×2 (09:38→19:00)
[2017-01-04] MEDS: PANTOPRAZOLE SOD 40 MG DELAYED RELEASE TAB PO SCH (09:38)
[2017-01-04] MEDS: ATORVASTATIN 80 MG TAB PO SCH (09:38)
[2017-01-04] MEDS: METOPROLOL TARTRATE 25 MG TAB PO SCH ×2 (09:38→20:59)
[2017-01-04] MEDS: GABAPENTIN 300 MG CAP PO SCH ×3 (09:39→16:58)
[2017-01-04] MEDS: FUROSEMIDE 20 MG TAB PO SCH ×2 (09:39→20:59)
[2017-01-04] MEDS: SODIUM CHLORIDE 0.9% FLUSH 5 ML FLUSH FLUSH SCH ×2 (09:39→20:57)
--- NOTE | 2017-01-04 15:57 | PD.CARD.PN ---
Subjective Subjective Remarks CP improving, atypical, no SOB, still c/o frequent falls and difficulty with his balance Objective Medications Current Medications Medications (Trade) Dose Ordered Sig/Libby Route Start Time Stop Time Status Last Admin (NS 1000 ml Inj) 1,000 ml @ 100 mls/hr Q10H IV 01/02/17 07:00 01/04/17 09:38 (NS Flush) 2 ml UNSCH PRN FLUSH 01/02/17 07:00 (NS Flush) 2 ml BID FLUSH 01/02/17 09:00 01/04/17 09:39 (Zofran Inj) 4 mg Q6H PRN IVP 01/02/17 07:00 01/04/17 15:03 (Narcan Inj) 0.4 mg UNSCH PRN IV 01/02/17 07:00 (Aspirin Chew) 81 mg DAILY CHEW 01/02/17 11:45 01/04/17 09:38 (Lipitor) 80 mg DAILY PO 01/02/17 11:45 01/04/17 09:38 (Flonase Philippe Spr) 1 spray BID NASAL 01/02/17 21:00 01/04/17 09:37 (Lasix) 20 mg BID PO 01/02/17 11:45 01/04/17 09:39 (Neurontin) 600 mg TID PO 01/02/17 13:00 01/04/17 13:47 (Prinivil) 2.5 mg DAILY PO 01/03/17 09:00 01/04/17 09:38 (Protonix) 40 mg DAILY PO 01/03/17 09:00 01/04/17 09:38 (Effient) 10 mg DAILY PO 01/02/17 13:00 01/04/17 09:38 (Morphine Inj) 2 mg Q3H PRN IV PUSH 01/02/17 11:45 (Nitrostat Sl) 0.4 mg Q5M PRN SL 01/02/17 11:45 (Pill Splitter) 1 ea UNSCH PRN OTHER 01/02/17 12:15 01/04/17 09:39 (Roxicodone) 30 mg Q8H PRN PO 01/02/17 12:15 01/04/17 13:48 (Fioricet 325-50-40) 1 tab Q6H PRN PO 01/02/17 13:15 01/04/17 15:13 (Lopressor) 25 mg Q12HR PO 01/02/17 21:00 01/04/17 09:38 (Xanax) 1 mg BID PRN PO 01/03/17 08:30 01/04/17 09:46 (Imdur) 15 mg DAILY@07 PO 01/05/17 07:00 Vital Signs / I&O Vital Signs Date Time Temp Pulse Resp B/P Pulse Ox O2 Delivery O2 Flow Rate FiO2 01/04/17 14:59 73 94/63 97 01/04/17 14:57 72 94/59 97 01/04/17 14:56 96.3 70 18 101/65 96 01/04/17 11:12 71 96/63 01/04/17 11:10 87 92/64 96 01/04/17 11:09 96.4 76 16 96/57 97 01/04/17 08:04 95.4 66 18 101/64 99 01/04/17 08:01 66 103/66 01/04/17 08:00 75 117/69 01/04/17 03:52 62 01/04/17 00:43 98.0 77 19 103/57 95 01/03/17 21:51 100/61 01/03/17 20:28 98.2 68 20 94/53 95 01/03/17 16:00 96.1 67 20 96/60 95 I/O 01/03/17 01/03/17 01/03/17 01/04/17 01/04/17 01/04/17 07:00 15:00 23:00 07:00 15:00 23:00 Intake Total 742 ml Balance 742 ml Intake Oral 240 ml IV Total 502 ml # Voids 4 2 Physical Exam GENERAL: Mildly agitated. SKIN: Warm and dry. HEAD: Normocephalic. EYES: No scleral icterus. No injection or drainage. NECK: Supple, trachea midline. No JVD or lymphadenopathy. CARDIOVASCULAR: Regular rate and rhythm without murmurs, gallops, or rubs. RESPIRATORY: Breath sounds equal bilaterally. No accessory muscle use. GASTROINTESTINAL: Abdomen soft, non-tender, nondistended. MUSCULOSKELETAL: No cyanosis, or edema. NEURO: tremor Laboratory Laboratory Tests Test 01/02/17 01/02/17 01/02/17 01/03/17 07:00 16:59 18:15 04:13 Creatine Kinase MB 4.5 NG/ML Total Creatine Kinase 105 U/L Troponin I 0.05 NG/ML Urine Color YELLOW Urine Turbidity CLEAR Urine pH 5.5 Urine Specific [place] 1.017 Urine Protein NEG mg/dL Urine Glucose (UA) NEG mg/dL Urine Ketones NEG mg/dL Urine Occult Blood NEG Urine Nitrite NEG Urine Bilirubin NEG Urine Urobilinogen LESS THAN 2.0 MG/DL Urine Leukocyte Esterase NEG Urine RBC LESS THAN 1 /hpf Urine WBC LESS THAN 1 /hpf Urine Hyaline Casts 1 /lpf Urine Mucus FEW /lpf Microscopic Urinalysis Comment CULT NOT INDICATED White Blood Count 8.9 TH/MM3 Red Blood Count 4.78 MIL/MM3 Hemoglobin 13.1 GM/DL Hematocrit 39.7 % Mean Corpuscular Volume 83.0 FL Mean Corpuscular Hemoglobin 27.4 PG Mean Corpuscular Hemoglobin 33.0 % Concent Red Cell Distribution Width 16.7 % Platelet Count 194 TH/MM3 Mean Platelet Volume 9.0 FL Neutrophils (%) (Auto) 53.1 % Lymphocytes (%) (Auto) 37.5 % Monocytes (%) (Auto) 5.5 % Eosinophils (%) (Auto) 3.1 % Basophils (%) (Auto) 0.8 % Neutrophils # (Auto) 4.7 TH/MM3 Lymphocytes # (Auto) 3.4 TH/MM3 Monocytes # (Auto) 0.5 TH/MM3 Eosinophils # (Auto) 0.3 TH/MM3 Basophils # (Auto) 0.1 TH/MM3 CBC Comment DIFF FINAL Differential Comment Sodium Level 141 MEQ/L Potassium Level 3.8 MEQ/L Chloride Level 105 MEQ/L Carbon Dioxide Level 28.6 MEQ/L Anion Gap 7 MEQ/L Blood Urea Nitrogen 26 MG/DL Creatinine 1.05 MG/DL Estimat Glomerular Filtration 72 ML/MIN Rate Random Glucose 98 MG/DL Calcium Level 8.7 MG/DL Magnesium Level 2.3 MG/DL Triglycerides Level 158 MG/DL Cholesterol Level 135 MG/DL LDL Cholesterol 59 MG/DL HDL Cholesterol 44.4 MG/DL Cholesterol/HDL Ratio 3.04 RATIO Thyroid Stimulating Hormone 1.230 uIU/ML 3rd Gen Imaging Last Impressions Carotid Artery Ultrasound 01/03/17 0000 Signed Impressions: Service Date/Time: Thursday, January 03, 2017 11:39 - CONCLUSION: No evidence of flow-limiting carotid stenosis. Cr Meza MD Head CT 01/02/17 0615 Signed Impressions: Service Date/Time: Monday, January 02, 2017 06:40 - CONCLUSION: Normal examination. Cr Tay MD Assessment and Plan Problem List: (1) Non-cardiac chest pain (2) CAD (coronary artery disease) (3) Ischemic cardiomyopathy (4) Hypertension (5) Hyperlipidemia (6) Adjustment disorder with mixed anxiety and depressed mood (7) Hx of CABG (8) H/O heart artery stent (9) Frequent falls Assessment and Plan Recent nuclear stress test c/w old lateral MS with small amount of periinfarction ischemia. CP atypical. H/o frequent falls, evaluated by neurology. Continue Effient and baby ASA long-term due to recent complex coronary intervention, risk of stent thrombosis and acute MS is very high off platelet inhibitors. Continue aggressive risk factor modification. Counseled to quit smoking. Problem Qualifiers (1) CAD (coronary artery disease): Jennifer Escobar MD Jan 04, 2017 15:57
--- NOTE | 2017-01-04 17:14 | HM ---
Date Performed: 01/03/2017 Time Performed: 12:21:00 HOOKUP DATE: 01/03/17 12:21:00 PM [facility] ANALYSIS START TIME: 01/03/2017 12:26:00 PM ANALYSIS END TIME: 01/04/2017 10:42:32 AM PATIENT AGE: 61 PATIENT HEIGHT PATIENT WEIGHT DRUG LIST PATIENT DIAGNOSIS: intermittent chest pain TEST NARRATIVE: The patient's average heart rate was 71 BPM. Heart rates greater than 120 B PM were noted < 1% of the time. No episodes of bradycardia were noted. No pauses exceeding 2.0 s econds were noted. 80 ventricular ectopics, which represented < 1% of the total beat count, were noted. The highest ventricular ectopic frequency occurred from 02:00 AM to 03:00 AM Fri. During thi s time 10 VE(s) occurred. Ventricular ectopics were observed as 80 isolated beat(s) only. No couple ts or runs were noted. 2 supraventricular ectopics, which represented < 1% of the total beat coun t, were noted. The highest supraventricular ectopic frequency occurred from 03:00 PM to 04:00 PM [facility] . During this time 1 SVE(s) occurred. No episodes of ST depression (defined as -1.0 mm or more) were noted in channel 1. No episodes of ST depression (defined as -1.0 mm or more) were noted in chyna nnel 2. No episodes of ST depression (defined as -1.0 mm or more) were noted in channel 3. TEST INTERPRETATION: *Patient is male, marked as female on cover sheet by error Conclusions The predominant of sinus. No diary entries provided. No atrial fibrillation, ventricular runs, or pauses were appreciated. Signed by : Ameya Perez
[2017-01-05 00:08] VITALS: BP 113/67; PULSE 74; RESP 19; TEMP 98.2; O2SAT 96
[2017-01-05 03:16] VITALS: BP 104/58; PULSE 74; RESP 21; TEMP 98.8; O2SAT 98
[2017-01-05] MEDS: ACETAMIN 325 MG/BUTALBITAL 50 MG/CAFFEINE 40 MG TAB PO PRN (03:42)
[2017-01-05] MEDS: SODIUM CHLOR 0.9% 1000 ML INJ 1,000 ML IV SCH (04:58)
[2017-01-05] MEDS ORDERED: ISOSORBIDE MONONITRATE 30 MG TAB PO SCH (07:00)
--- NOTE | 2017-01-05 08:01 | HHI.PR ---
Subjective Remarks Follow-up for chest pain, frequent falls. The patient is seen in relieving the hallways this morning. RN reports the patient has been up walking throughout the night, constantly coming up to the nurses station. The patient approached me and wanted to be discharged today. Upon further discussion, the patient complains that he is still having numbness of his right side of his body and nobody has done anything about it. He is requesting a brain MRI. Otherwise, the patient denies any chest pain or shortness of breath. BP improving. Objective Vitals Vital Signs Date Time Temp Pulse Resp B/P Pulse Ox O2 Delivery O2 Flow Rate FiO2 01/05/17 03:16 98.8 74 21 104/58 98 01/05/17 00:08 98.2 74 19 113/67 96 01/04/17 20:01 98.2 69 19 102/64 95 01/04/17 20:00 82 01/04/17 14:59 73 94/63 97 01/04/17 14:57 72 94/59 97 01/04/17 14:56 96.3 70 18 101/65 96 01/04/17 11:12 71 96/63 01/04/17 11:10 87 92/64 96 01/04/17 11:09 96.4 76 16 96/57 97 01/04/17 08:04 95.4 66 18 101/64 99 01/04/17 08:01 66 103/66 01/04/17 08:00 75 117/69 I/O 01/04/17 01/04/17 01/04/17 01/05/17 01/05/17 01/05/17 07:00 15:00 23:00 07:00 15:00 23:00 Intake Total 1750 ml 480 ml Output Total 1500 ml Balance 250 ml 480 ml Intake Oral 750 ml 480 ml IV Total 1000 ml Output Urine Total 1500 ml # Voids 3 Result Diagram: 01/03/17 0413 01/03/17 0413 Imaging Last Impressions Carotid Artery Ultrasound 01/03/17 0000 Signed Impressions: Service Date/Time: December 11:39 - CONCLUSION: No evidence of flow-limiting carotid stenosis. Cr Meza MD Head CT 01/02/17 0615 Signed Impressions: Service Date/Time: Monday, January 02, 2017 06:40 - CONCLUSION: Normal examination. Cr Tay MD Objective Remarks GENERAL: Well-nourished, well-developed male patient in NAD. SKIN: Warm and dry. No rash. HEAD: Normocephalic. Atraumatic. EYES: Pupils equal and round. No scleral icterus. No injection or drainage. ENT: No nasal bleeding or discharge. Mucous membranes pink and moist. NECK: Supple. Trachea midline. CARDIOVASCULAR: Regular rate and rhythm. S1, S2 noted. No murmur appreciated. RESPIRATORY: No accessory muscle use. Clear to auscultation. Breath sounds equal bilaterally. GASTROINTESTINAL: Abdomen soft, non-tender, nondistended. Normoactive bowel sounds x4. MUSCULOSKELETAL: No obvious deformities. Extremities without clubbing, cyanosis , or edema. NEUROLOGICAL: Awake and alert. No obvious cranial nerve deficits. Motor grossly within normal limits. 5/5 muscle strength in bilateral upper and lower extremities. Normal speech. Medications and IVs Current Medications Medications (Trade) Dose Ordered Sig/Libby Route Start Time Stop Time Status Last Admin (NS 1000 ml Inj) 1,000 ml @ 100 mls/hr Q10H IV 01/02/17 07:00 01/04/17 09:38 (NS Flush) 2 ml UNSCH PRN FLUSH 01/02/17 07:00 (NS Flush) 2 ml BID FLUSH 01/02/17 09:00 01/04/17 20:57 (Zofran Inj) 4 mg Q6H PRN IVP 01/02/17 07:00 01/04/17 15:03 (Narcan Inj) 0.4 mg UNSCH PRN IV 01/02/17 07:00 (Aspirin Chew) 81 mg DAILY CHEW 01/02/17 11:45 01/04/17 09:38 (Lipitor) 80 mg DAILY PO 01/02/17 11:45 01/04/17 09:38 (Flonase Philippe Spr) 1 spray BID NASAL 01/02/17 21:00 01/04/17 09:37 (Lasix) 20 mg BID PO 01/02/17 11:45 01/04/17 09:39 (Neurontin) 600 mg TID PO 01/02/17 13:00 01/04/17 16:58 (Prinivil) 2.5 mg DAILY PO 01/03/17 09:00 01/04/17 09:38 (Protonix) 40 mg DAILY PO 01/03/17 09:00 01/04/17 09:38 (Effient) 10 mg DAILY PO 01/02/17 13:00 01/04/17 09:38 (Morphine Inj) 2 mg Q3H PRN IV PUSH 01/02/17 11:45 01/05/17 01:10 (Nitrostat Sl) 0.4 mg Q5M PRN SL 01/02/17 11:45 (Pill Splitter) 1 ea UNSCH PRN OTHER 01/02/17 12:15 01/04/17 09:39 (Roxicodone) 30 mg Q8H PRN PO 01/02/17 12:15 01/05/17 04:59 (Fioricet 325-50-40) 1 tab Q6H PRN PO 01/02/17 13:15 01/05/17 03:42 (Lopressor) 25 mg Q12HR PO 01/02/17 21:00 01/04/17 09:38 (Xanax) 1 mg BID PRN PO 01/03/17 08:30 01/04/17 16:59 (Imdur) 15 mg DAILY@07 PO 01/05/17 07:00 A/P Assessment and Plan 61 yo male with PMHX of HTN, HLD, CAD s/p previous CABG in 2012 and history of NSTEMI with subsequent PCI/stenting 11/13/[address] Ivey as well as NSTEMI 11/27 who has been out of his medications for the past 5 days and is admitted with complaints of chest pain. Chest pain r/o ACS - Cardiology following - appreciate their assistance. Discussed with Dr. Escobar - patient had negative stress test 2 weeks ago, no indication for stress testing at this time. Recommends Neurology consult for recurrent falls and headache. - Discussed with patient importance of medication compliance. Patient verbalized understanding. - Morphine and Nitro prn - Continue ASA and high dose statin daily - Troponins - 0.05 -> 0.06 -> 0.05 - TSH wnl - lipid panel TG 158, LDL 59, HDL 44.4, continue on high dose statin - continue on telemetry - heart healthy diet - cleared from cardiac standpoint Recurrent falls, headaches and double vision, s/p fall with closed head injury - CT head neg in ED, repeat CT s/p fall this am shows bilateral nasal fractures of indeterminate age - Neurology consult requested - blood sugars 98-129, heart rate 58-81 - fall precautions - orthostatics negative - Carotid US unremarkable - Holter monitor unremarkable - c/w Fioricet for headache - continue with PT, recommends outpatient physical therapy after discharge. - cleared from neurology standpoint - Check repeat brain MRI, if negative, will discharge home. CAD with h/o CABG 2012 and recent NSTEMI s/p PCI/stenting 11/13/16 and NSTEMI 11/27 with medication noncompliance x 5 days - as above Cardiology following - continue home medications - ASA daily HTN - hypotensive measurement 80/60 - hold BP meds if systolic less than 110, encourage po intake - continue home meds, Imdur added and Lopressor increased by cardiology following admission - decrease Imdur to 15mg daily - monitor BP and adjust tx as indicated, improving CHF, systolic with EF 45-50% by echo 11/2016 - continue on Lasix - monitor for evidence of fluid overload Chronic neck and back pain with h/o DDD - continue with home pain medication regimen Anxiety - resume Xanax prn Leukocytosis - resolved - possibly reactive with recent N/V - CXR and UA negative DVT prophylaxis: SCDs/teds Discussed with Dr. Hurst Discharge Planning Discharge today if brain MRI negative. Attending Statement The exam, history, and the medical decision-making described in the above note were completed with the assistance of the mid-level provider. I reviewed and agree with the findings presented. I attest that I had a [id number] encounter with the patient on the same day, and personally performed and documented my assessment and findings in the medical record. Mellissa Asif PA-C Jan 05, 2017 08:01 Oscar Hurst MD Jan 07, 2017 02:53
[2017-01-05] MEDS ORDERED: ISOS30TA3 PO (08:04)
--- NOTE | 2017-01-05 08:05 | HHI.DCPOC ---
Discharge Care Plan Diagnosis: (1) Frequent falls (2) Chest pain in adult (3) CAD (coronary artery disease) Your Health Problems Are: Chest Pain Goals to Promote Your Health * To prevent worsening of your condition and complications * To maintain your health at the optimal level Directions to Meet Your Goals Take your medications as prescribed Follow your dietary instruction Follow activity as directed Keep your appointments as scheduled Take your immunizations and boosters as scheduled If your symptoms worsen call your PCP, if no PCP go to Urgent Care Center or Emergency Room Smoking is Dangerous to Your Health. Avoid second hand smoke Call the 24-hour hour crisis hotline for domestic abuse at Mellissa Asif PA-C Jan 05, 2017 08:05
[2017-01-05 08:10] VITALS: BP 128/81; PULSE 71; RESP 24; TEMP 97.8; O2SAT 98
[2017-01-05] MEDS: SODIUM CHLORIDE 0.9% FLUSH 5 ML FLUSH FLUSH SCH (09:00)
[2017-01-05] MEDS: FLUTICASONE PROPIONATE 50 MCG/ACT 16 GM NASAL SPRAY NASAL SCH (09:00)
[2017-01-05] MEDS: LISINOPRIL 5 MG TAB PO SCH (09:17)
[2017-01-05] MEDS: ATORVASTATIN 80 MG TAB PO SCH (09:18)
[2017-01-05] MEDS: METOPROLOL TARTRATE 25 MG TAB PO SCH (09:18)
[2017-01-05] MEDS: FUROSEMIDE 20 MG TAB PO SCH (09:18)
[2017-01-05] MEDS: PRASUGREL 10 MG TAB PO SCH (09:18)
[2017-01-05] MEDS: GABAPENTIN 300 MG CAP PO SCH (09:18)
[2017-01-05] MEDS: ASPIRIN 81 MG CHEW TAB CHEW SCH (09:18)
[2017-01-05] MEDS: PANTOPRAZOLE SOD 40 MG DELAYED RELEASE TAB PO SCH (09:18)
[2017-01-05] MEDS ORDERED: ALPRAZolam 1 MG TAB PO ONE (09:30)
[2017-01-05] MEDS: ALPRAZolam 1 MG TAB PO PRN (09:39)
--- NOTE | 2017-01-05 10:52 | RADRPT ---
EXAM DATE/TIME: 01/05/2017 09:57 [facility] COMPARISON: MRI BRAIN W/O CONTRAST, September 26, 2016, 12:17. INDICATIONS : CVA. Right side numbness. Diplopia. MEDICAL HISTORY : Chronic obstructive pulmonary disease. Congestive heart failure. Emphysema. SURGICAL HISTORY : CABG ENCOUNTER: Initial ACUITY: 3 day PAIN SCORE: 0/10 LOCATION: cranial TECHNIQUE: Multiplanar, multisequence MRI of the brain was performed without contrast. FINDINGS: CEREBRUM: The ventricles are normal for age. No evidence of midline shift, mass lesion, hemorrhage or acute in farction. No extraaxial fluid collections are seen. The pituitary gland and suprasellar cistern are normal in configuration. WHITE MATTER: Mild chronic ischemic change in the carly. POSTERIOR FOSSA: The cerebellum and brainstem are intact. The 4th ventricle is midline. The cerebellopontine angle is unremarkable. The cerebellar tonsils are normal in position. DIFFUSION IMAGING: No focal areas of restricted diffusion are seen. No evidence of acute infarction. EXTRACRANIAL: Moderate mucosal thickening left maxillary sinus. CONCLUSION: 1. Left maxillary sinus disease. 2. No acute intracranial findings. Juan Alberto Verdugo MD on January 05, 2017 at 10:48 Board Certified Radiologist. This report was verified electronically.
[2017-01-05] MEDS ORDERED: OXYC1TAB36 PO (10:59)
--- NOTE | 2017-01-28 21:25 | HHI.DS ---
Discharge Summary Admission Date Jan 02, 2017 at 06:50 Discharge Date: Jan 05, 2017 Admitting Diagnosis intermittent chest pains (1) Chest pain in adult ICD Code: R07.9 (2) Syncope ICD Code: R55 Procedures no invasive procedures Brief History - From Admission 61 yo male with PMHX of CAD s/p previous CABG in 2012 and history of NSTEMI with subsequent PCI/stenting 11/13/[address] Ivey who has been out of his medications for the past 5 days and presents to [facility] ED with complaints of chest pain. Patient is very upset about being in the hospital and states he "hates needles and all this sh "and as a result is rather belligerent when giving his history which is limited by his furtive responses. He was apparently admitted earlier to the chest pain center but left AMA refusing any further blood draws, however he returned within an hour to the ED. He complains of sharp pain in the center of his chest that began occurring intermittently yesterday with associated nausea and single episode of vomiting. The pain has now become constant and radiates down into his left arm. He denies any recent illness or fever/chills. He also reports severe headache located behind his left eye and double vision. He was recently "shipped to the [facility] in [place]" and went without his medications for the past 5 days. He also reports recent falls over the last few days that resulted in him hitting is head and he is unsure whether or not he lose consciousness. CT brain obtained in the ED was normal. Lab work obtained in the ED prior to him leaving [facility] revealed slightly elevated troponin of 0.05 and the last blood draw revealed a level of 0.06. His EKG did not show any signs of acute changes. Imaging Last Impressions Brain MRI 01/05/17 0000 Signed Impressions: Service Date/Time: Thursday, January 05, 2017 09:57 - CONCLUSION: 1. Left maxillary sinus disease. 2. No acute intracranial findings. Juan Alberto Verdugo MD Carotid Artery Ultrasound 01/03/17 0000 Signed Impressions: Service Date/Time: December 11:39 - CONCLUSION: No evidence of flow-limiting carotid stenosis. Cr Meza MD Head CT 01/02/17 0615 Signed Impressions: Service Date/Time: Monday, January 02, 2017 06:40 - CONCLUSION: Normal examination. Cr Tay MD PE at Discharge GENERAL: Well-nourished, well-developed male patient in NAD. SKIN: Warm and dry. No rash. HEAD: Normocephalic. Atraumatic. EYES: Pupils equal and round. No scleral icterus. No injection or drainage. ENT: No nasal bleeding or discharge. Mucous membranes pink and moist. NECK: Supple. Trachea midline. CARDIOVASCULAR: Regular rate and rhythm. S1, S2 noted. No murmur appreciated. RESPIRATORY: No accessory muscle use. Clear to auscultation. Breath sounds equal bilaterally. GASTROINTESTINAL: Abdomen soft, non-tender, nondistended. Normoactive bowel sounds x4. MUSCULOSKELETAL: No obvious deformities. Extremities without clubbing, cyanosis , or edema. NEUROLOGICAL: Awake and alert. No obvious cranial nerve deficits. Motor grossly within normal limits. 5/5 muscle strength in bilateral upper and lower extremities. Normal speech. Hospital Course 61 yo male with PMHX of HTN, HLD, CAD s/p previous CABG in 2012 and history of NSTEMI with subsequent PCI/stenting 11/13/[address] Ivey as well as NSTEMI 11/27 who has been out of his medications for the past 5 days and is admitted with complaints of chest pain. Troponin was mildly elevated at 0.06. No acute changes on EKG. Cardiology has evaluated the patient, recommends continuing antiplatelets. Extensive CT, and MRI brain imaging as above. Holter negative for any sustained arrhythmia. Patient's pain medication was decreased. He is walking around without difficulty. For problem-based summary from most recent progress note, please see below. Chest pain r/o ACS - Cardiology following - appreciate their assistance. Discussed with Dr. Escobar - patient had negative stress test 2 weeks ago, no indication for stress testing at this time. Recommends Neurology consult for recurrent falls and headache. - Discussed with patient importance of medication compliance. Patient verbalized understanding. - Morphine and Nitro prn - Continue ASA and high dose statin daily - Troponins - 0.05 -> 0.06 -> 0.05 - TSH wnl - lipid panel TG 158, LDL 59, HDL 44.4, continue on high dose statin - continue on telemetry - heart healthy diet - cleared from cardiac standpoint Recurrent falls, headaches and double vision, s/p fall with closed head injury - CT head neg in ED, repeat CT s/p fall this am shows bilateral nasal fractures of indeterminate age - Neurology consult requested - blood sugars 98-129, heart rate 58-81 - fall precautions - orthostatics negative - Carotid US unremarkable - Holter monitor unremarkable - c/w Fioricet for headache - continue with PT, recommends outpatient physical therapy after discharge. - cleared from neurology standpoint - Check repeat brain MRI, if negative, will discharge home. CAD with h/o CABG 2012 and recent NSTEMI s/p PCI/stenting 11/13/16 and NSTEMI 11/27 with medication noncompliance x 5 days - as above Cardiology following - continue home medications - ASA daily HTN - hypotensive measurement 80/60 - hold BP meds if systolic less than 110, encourage po intake - continue home meds, Imdur added and Lopressor increased by cardiology following admission - decrease Imdur to 15mg daily - monitor BP and adjust tx as indicated, improving CHF, systolic with EF 45-50% by echo 11/2016 - continue on Lasix - monitor for evidence of fluid overload Chronic neck and back pain with h/o DDD - continue with home pain medication regimen Anxiety - resume Xanax prn Leukocytosis - resolved - possibly reactive with recent N/V - CXR and UA negative DVT prophylaxis: SCDs/teds Discussed with Dr. Hurst Discharge Planning Discharge today if brain MRI negative. Pt Condition on Discharge: Stable Discharge Disposition: Discharge Home Discharge Time: <= 30 minutes Discharge Instructions DIET: Follow Instructions for: Heart Healthy Diet Activities you can perform: Regular-No Restrictions Follow up Referrals: Cardiology - 1 Week with Jennifer Escobar MD Neurology - 1 Week Ophthalmology - 1 Week PCP Follow-up - 1 Week New Orders: Physical Therapy - 2-3 Days New Medications: Oxycodone-Acetaminophen (Oxycodone-Acetaminophen) 10-325 mg Tab 1 TAB PO Q6H PRN PAIN #20 Ref 0 TAB Continued Medications: Albuterol 18 GM Inh (Ventolin Hfa 18 GM Inh) 90 Mcg/Act Aer 2 PUFF INH Q4-6H PRN SOB/WHEEZING #1 INHALER Alprazolam (Alprazolam) 1 Mg Tab 1 MG PO BID ANXIETY Ref 0 TAB Fluticasone Nasal [place] (Fluticasone Nasal [place]) 50 Mcg/Act Naspr 1 SPRAY NASAL BID nasal congestion #1 BOTTLE Gabapentin (Gabapentin) 600 Mg Tab 600 MG PO TID #90 Ref 0 TAB Nitroglycerin SL (Nitroglycerin SL) 0.3 Mg Subl 0.3 MG SL DIRECTED ONE TABLET UNDER THE TONGUE NEEDED FOR CHEST PAIN, MAY REPEAT EVERY FIVE MINUTES FOR A TOTAL OF 3 DOSES OR CALL 911 IF NO RELIEF. PRN CHEST PAIN #10 Ref 0 TAB.SL Pantoprazole (Protonix) 40 Mg Tab 40 MG PO DAILY Reflux #30 Ref 0 TAB Discontinued Medications: Oxycodone (Oxycodone) 30 Mg Tab 30 MG PO Q8H PRN PAIN Ref 0 TAB Oscar Hurst MD Jan 28, 2017 21:25
== END 2017-01-05 15:58 | disposition home or self-care (01) ==
LOC: NEPC 05:59 → NEDA 06:50 → NEPFCDU 08:32
PROVIDERS: ADMIT Internal Medicine; ATTEND Internal Medicine
DX: R07.9 Chest pain, unspecified (principal); R29.6 Repeated falls; R11.2 Nausea with vomiting, unspecified; I10 Essential (primary) hypertension; Z95.1 Presence of aortocoronary bypass graft; I50.22 Chronic systolic (congestive) heart failure; I25.119 Atherosclerotic heart disease of native coronary artery with unspecified angina pectoris; I25.2 Old myocardial infarction; E78.5 Hyperlipidemia, unspecified; H53.2 Diplopia; R51 Headache; R74.8 Abnormal levels of other serum enzymes; G62.9 Polyneuropathy, unspecified; G89.29 Other chronic pain; Z79.899 Other long term (current) drug therapy; F17.210 Nicotine dependence, cigarettes, uncomplicated; F12.90 Cannabis use, unspecified, uncomplicated; D72.829 Elevated white blood cell count, unspecified; Z95.5 Presence of coronary angioplasty implant and graft; R55 Syncope and collapse; I25.5 Ischemic cardiomyopathy; Z76.5 Malingerer [conscious simulation]; F32.9 Major depressive disorder, single episode, unspecified
CPT/HCPCS: 70450; 70551; 80048; 80061; 81001; 82550; 82552; 83735; 84443; 84484; 85025; 93005; 93225; 93226; 93880; 97162; 99285; G0378; G8987; G8988; J2270; J2405; J7030

== ENCOUNTER 2017-01-06 18:31 | Emergency (ER) | payer OTHER ==
[~2017-01-06] VITALS: Ht 167.6 cm; Wt 70.0 kg
[~2017-01-06 18:31] MED LIST changes: -HYDR-3535 PO; +ISOS30TA3 PO; -NEUR400C PO; +OXYC1TAB36 PO; -OXYC30TA PO
[2017-01-06 18:34] VITALS: PULSE 98; RESP 20; TEMP 98.5
[2017-01-06 18:45] VITALS: BP 118/82; PULSE 95; RESP 18; O2SAT 97
--- NOTE | 2017-01-06 19:25 | PD ---
HPI Chief Complaint: Chest Pain Time Seen by Provider: 18:45 Travel History International Travel<30 days: No Contact w/Intl Traveler<30days: No Traveled to known affect area: No History of Present Illness HPI 61-year-old male complains of syncope and chest pain. Patient was admitted to [facility] in the past several times for the same problem. Neurological workup has been negative for the cause of syncope. Patient has history of in November 27 status post coronary artery bypass surgery in 2012, non-ST elevation ND and coronary stenting in November 2016. Patient had cardiac catheter done on November 13, 2016 which shows coronary artery disease with both grafts patent. Patient was admitted 4 days ago and manufacturing quality inspector Dr. Escobar was consulted. Mental Retardation Nurse advised medical management for chest pain. Patient states that he was discharged however continued had chest pain since discharge. Patient states the pain did sharp pain and aching pain substernally without radiation. Patient denies palpitation nausea vomiting diaphoresis. Patient states that he had a syncope episode today was brought back to the ED by EMS. Patient states that he has aching headache. Patient denies any visual change. Patient denies any shortness of breath. Patient denies abdominal pain. Patient states that he has nausea but no vomiting or diarrhea. Patient denies any focal weakness or numbness of extremity. Patient denies any recent alcohol or illicit drug abuse. On a scale of 1-10 the chest pain is a 4. PFSH Past Medical History Hx Anticoagulant Therapy: Yes Arthritis: Yes Autoimmune Disease: No Blood Disorders: No Anxiety: Yes Depression: Yes Cancer: No Cardiac Catheterization: Yes Cardiovascular Problems: Yes High Cholesterol: Yes Cerebrovascular Accident: No Diabetes: No Diminished Hearing: No Endocrine: No Gastrointestinal Disorders: Yes GERD: Yes Hiatal Hernia: Yes Heparin Induced Thrombocytopen: No Hypertension: Yes Immune Disorder: No Implanted Vascular Access Dvce: Yes Kidney Stones: Yes Psychiatric: Yes Immunizations Current: Yes Migraines: Yes Myocardial Infarction: Yes Seizures: No Sickle Cell Disease: No Ulcer: No Past Surgical History Abdominal Surgery: No Body Medical Devices: STENTS Cardiac Surgery: Yes ( double cabg 2012 for stents) Coronary Artery Bypass Graft: Yes Ear Surgery: No Endocrine Surgery: No Eye Surgery: No Genitourinary Surgery: No Gynecologic Surgery: No Neurologic Surgery: No Oral Surgery: No Thoracic Surgery: Yes (HX of CABG x 2) Other Surgery: Yes (CABG, STENTING) Family History Family Myocardial Infarction: Yes Social History Alcohol Use: No (PT DENIES) Tobacco Use: Yes Substance Use: No (PT STATES HE USED EVERY DRUG 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 [employer]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[employer] ) Allergies-Medications (Allergen,Severity, Reaction): Coded Allergies: Penicillin (Verified Allergy, Unknown, Hives, 01/06/17) Toradol (Verified Allergy, Unknown, 01/06/17) Reported Meds & Prescriptions Reported Meds & Active Scripts Active Oxycodone-Acetaminophen 10-325 mg Tab 1 Tab PO Q6H PRN Isosorbide Mononitrate ER (Isosorbide Mononitrate) 30 Mg Ronny 15 Mg PO DAILY@07 Lisinopril 5 Mg Tab 2.5 Mg PO DAILY Furosemide 20 Mg Tab 20 Mg PO BID Effient (Prasugrel) 10 Mg Tab 10 Mg PO DAILY Metoprolol Tartrate 25 Mg Tab 12.5 Mg PO Q12HR Fluticasone Nasal [place] 50 Mcg/Act Naspr 1 [place] NASAL BID Lipitor (Atorvastatin Calcium) 80 Mg Tab 80 Mg PO DAILY Ventolin Hfa 18 GM Inh (Albuterol Sulfate) 90 Mcg/Act Aer 2 Puff INH Q4-6H PRN Nitroglycerin SL (Nitroglycerin) 0.3 Mg Subl 0.3 Mg SL DIRECTED PRN ONE TABLET UNDER THE TONGUE NEEDED FOR CHEST PAIN, MAY REPEAT EVERY FIVE MINUTES FOR A TOTAL OF 3 DOSES OR CALL 911 IF NO RELIEF. Protonix (Pantoprazole Sodium) 40 Mg Tab 40 Mg PO DAILY Reported Gabapentin 600 Mg Tab 600 Mg PO TID Alprazolam 1 Mg Tab 1 Mg PO BID Aspirin 81 Mg Chew 81 Mg CHEW DAILY Review of Systems General / Constitutional: No: Fever Eyes: No: Visual changes HENT: No: Headaches Cardiovascular: Positive: Chest Pain or Discomfort Respiratory: No: Shortness of Breath Gastrointestinal: No: Abdominal Pain Genitourinary: No: Dysuria Musculoskeletal: No: Pain Skin: No Rash Neurologic: Positive: Syncope, No: Weakness Psychiatric: No: Depression Endocrine: No: Polydipsia Hematologic/Lymphatic: No: Easy Bruising Physical Exam Narrative GENERAL: Well-nourished, well-developed patient. SKIN: Warm and dry. HEAD: Normocephalic. EYES: No scleral icterus. No injection or drainage. NECK: Supple, trachea midline. No JVD or lymphadenopathy. CARDIOVASCULAR: Regular rate and rhythm without murmurs, gallops, or rubs. RESPIRATORY: Breath sounds equal bilaterally. No accessory muscle use. GASTROINTESTINAL: Abdomen soft, non-tender, nondistended. MUSCULOSKELETAL: No cyanosis, or edema. BACK: Nontender without obvious deformity. No CVA tenderness. Neurologic exam normal. Data Data Last Documented VS Vital Signs Date Time Temp Pulse Resp B/P Pulse Ox O2 Delivery O2 Flow Rate FiO2 01/06/17 18:45 95 18 118/82 97 Room Air 01/06/17 18:34 98.5 Orders Consult Vascular Access Team (01/06/17 ) Vascular Poc Ultrasound (01/06/17 ) Electrocardiogram (01/06/17 19:15) Complete Blood Count With Diff (01/06/17 19:15) Comprehensive Metabolic Panel (01/06/17 19:15) Creatine Kinase (Cpk) (01/06/17 19:15) Troponin I (01/06/17 19:15) Prothrombin Time / Inr (Pt) (01/06/17 19:15) Act Partial Throm Time (Ptt) (01/06/17 19:15) Thyroid Stimulating Hormone (01/06/17 19:15) Chest, Single Ap (01/06/17 19:15) Iv Access Insert/Monitor (01/06/17 19:15) Ecg Monitoring (01/06/17 19:15) Oximetry (01/06/17 19:15) Psych Screen (01/06/17 19:58) Drug Screen, Random Urine (01/06/17 19:58) Labs Laboratory Tests Test 01/06/17 01/06/17 18:22 19:22 White Blood Count 9.1 TH/MM3 Red Blood Count 4.56 MIL/MM3 Hemoglobin 12.4 GM/DL Hematocrit 37.4 % Mean Corpuscular Volume 82.0 FL Mean Corpuscular Hemoglobin 27.2 PG Mean Corpuscular Hemoglobin 33.2 % Concent Red Cell Distribution Width 16.5 % Platelet Count 204 TH/MM3 Mean Platelet Volume 9.1 FL Neutrophils (%) (Auto) 75.9 % Lymphocytes (%) (Auto) 16.7 % Monocytes (%) (Auto) 5.4 % Eosinophils (%) (Auto) 1.6 % Basophils (%) (Auto) 0.4 % Neutrophils # (Auto) 6.9 TH/MM3 Lymphocytes # (Auto) 1.5 TH/MM3 Monocytes # (Auto) 0.5 TH/MM3 Eosinophils # (Auto) 0.1 TH/MM3 Basophils # (Auto) 0.0 TH/MM3 CBC Comment DIFF FINAL Differential Comment Sodium Level 140 MEQ/L Potassium Level 4.1 MEQ/L Chloride Level 103 MEQ/L Carbon Dioxide Level 25.9 MEQ/L Anion Gap 11 MEQ/L Blood Urea Nitrogen 20 MG/DL Creatinine 0.91 MG/DL Estimat Glomerular Filtration 85 ML/MIN Rate Random Glucose 122 MG/DL Calcium Level 8.7 MG/DL Total Bilirubin 0.4 MG/DL Aspartate Amino Transf 15 U/L (AST/SGOT) Alanine Aminotransferase 20 U/L (ALT/SGPT) Alkaline Phosphatase 72 U/L Total Creatine Kinase 160 U/L Troponin I 0.02 NG/ML Total Protein 7.3 GM/DL Albumin 3.8 GM/DL Thyroid Stimulating Hormone 0.330 uIU/ML 3rd Gen Prothrombin Time 10.4 SEC Prothromb Time International 0.9 RATIO Ratio Activated Partial 27.3 SEC Thromboplast Time MDM Medical Decision Making Medical Screen Exam Complete: Yes Emergency Medical Condition: Yes Interpretation(s) 2030 p.m. CBC within normal limit. CMP within normal limit. Cardiac enzymes are normal. BUN 20. TSH 0.330. Differential Diagnosis Differential diagnosis including vasovagal reaction, recurrent syncope, electrolyte abnormality, dehydration, angina, ND, PE, pneumothorax. Narrative Course 61-year-old male with recurrent syncope and chest pain. Patient had multiple workup for syncope and chest pain including her recent admission. 1957 PM. Patient states that he is suicidal now. Patient will be Araujo acted and psychiatric screening ordered. 2028 PM. Patient is medically cleared for psychiatric evaluation and disposition. eVrnon Weber MD Jan 06, 2017 19:25
[2017-01-06 19:40] LABS: AUTOMATED NEUTROPHIL # 6.9 TH/MM3 (1.8-7.7); BASOPHIL % 0.4 % (0.0-2.0); EOSINOPHIL # 0.1 TH/MM3 (0-0.4); EOSINOPHIL % 1.6 % (0.0-4.0); HEMATOCRIT 37.4 % (39.0-51.0); HEMO FLAGS DIFF FINAL; LYMPH % 16.7 % (9.0-44.0); LYMPHOCYTE # 1.5 TH/MM3 (1.0-4.8); MEAN CORPUSCULAR HEMOGLOBIN 27.2 PG (27.0-34.0); MEAN CORPUSCULAR HGB CONC 33.2 % (32.0-36.0); MONO % 5.4 % (0.0-8.0); NEUT % 75.9 % (16.0-70.0); PLATELET COUNT 204 TH/MM3 (150-450); RED BLOOD COUNT 4.56 MIL/MM3 (4.50-5.90); RED CELL DISTRIBUTION WIDTH 16.5 % (11.6-17.2); WHITE BLOOD COUNT 9.1 TH/MM3 (4.0-11.0)
[2017-01-06 19:48] LABS: APTT (PATIENT) 27.3 SEC (24.3-30.1); INTERNATIONAL NORMALIZED RATIO 0.9 RATIO; PROTHROMBIN TIME - PATIENT 10.4 SEC (9.8-11.6)
[2017-01-06 20:00] LABS: ANION GAP 11 MEQ/L (5-15); AST (GOT) 15 U/L (15-37); BICARBONATE 25.9 MEQ/L (21.0-32.0); BLOOD UREA NITROGEN 20 MG/DL (7-18); CHLORIDE 103 MEQ/L (98-107); GLOMERULAR FILTRATION RATE 85 ML/MIN (>89); POTASSIUM 4.1 MEQ/L (3.5-5.1); SODIUM (NA) 140 MEQ/L (136-145)
[2017-01-06 20:11] LABS: ALKALINE PHOSPHATASE 72 U/L (45-117); ALT (GPT) 20 U/L (12-78); CREATINE KINASE 160 U/L (39-308); TOTAL BILIRUBIN ADULT 0.4 MG/DL (0.2-1.0)
[2017-01-07 06:11] VITALS: BP 123/61; PULSE 68; RESP 18; TEMP 97.4; O2SAT 97
--- NOTE | 2017-01-07 09:50 | PD ---
History of Present Illness Chief Complaint: Chest Pain Time Seen by Provider: 09:30 Travel History International Travel<30 Days: No Contact w/Intl Traveler<30days: No Known affected area: No Legal Status Legal Status: Araujo Act Araujo Act Signed By: DR. CURRIE History of Present Illness: History of Present Illness HPI 61-year-old male with history of adjustment disorder who initially presented to ed for evaluation of of syncope and chest pain. Patient was admitted 4 days ago for evaluation of chest pain and discharged on the . After he was medically cleared he reported suicidal ideation in context of discussion about discharge from ED. he was placed under a BA by ED physician and was monitored in J pod. He was placed on [facility] wait list for possible admission due to lack of bed availability on [address]. The patient was monitored in J pod for nearly 24 hours and he did not present significant behavioral concerns and no suicidality. Review of EMR reveals he was last hosp at [facility] under the care of Dr. Baez in Oct 24 util Oct 25, 2016. Patient is seen . He is asleep but is easily awakened. He is irritable as he does not want to be bothered by " the same questions". he did not follow up with treatment recommendations after discharge and states " I just didn't want to go to [facility]". His complains are centered around not feeling well physically specifically issues with pain. He state he was tired of having medical issues and coming to [facility] . There is no indication that he is experiencing nay hallucinations, delusions or paranoia. he denies any of these. There is no raghu. He did not report suicidal ideation or plan until options for treatment were addressed. He threatened to take his medications if he was discharged and at the time he was informed that he would remain on [facility] list. He expressed his desire not to go to [facility] for unknown reasons and eluded to the fact that he didn't like it there. he requested to be discharged when he was told he could not receive narcotic pain medication at this time. I offered to provide him with Neurontin but he refused this and requested to be discharged and stated " I'm just bored here". He refused to take the cab voucher that was given to him to take him home and stated that he preferred to walk home. . PFSH Past Medical History Hx Anticoagulant Therapy: Yes Arthritis: Yes Autoimmune Disease: No Blood Disorders: No Anxiety: Yes Depression: Yes Cancer: No Cardiac Catheterization: Yes Cardiovascular Problems: Yes High Cholesterol: Yes Cerebrovascular Accident: No Diabetes: No Diminished Hearing: No Endocrine: No Gastrointestinal Disorders: Yes GERD: Yes Hiatal Hernia: Yes Heparin Induced Thrombocytopen: No Hypertension: Yes Immune Disorder: No Implanted Vascular Access Dvce: Yes Kidney Stones: Yes Psychiatric: Yes Immunizations Current: Yes Migraines: Yes Myocardial Infarction: Yes Seizures: No Sickle Cell Disease: No Ulcer: No Past Surgical History Abdominal Surgery: No Body Medical Devices: STENTS Cardiac Surgery: Yes ( double cabg 2012 for stents) Coronary Artery Bypass Graft: Yes Ear Surgery: No Endocrine Surgery: No Eye Surgery: No Genitourinary Surgery: No Gynecologic Surgery: No Neurologic Surgery: No Oral Surgery: No Thoracic Surgery: Yes (HX of CABG x 2) Other Surgery: Yes (CABG, STENTING) Psychiatric History Psychiatric History Hx Psychiatric Treatment: PATIENT WAS LAST ADMITTED TO [facility] FROM 10/24/16 TO 10/25/16 FOR DEPRESSION. History of Inpatient Treatment: Yes Guns or firearms in home: No Social History Single male. Lives by self. Unemployed. Hx Alcohol Use: No (PT DENIES) Hx Tobacco Use: Yes Hx Substance Use: No Substance Use Type: Nicotine/Cigarettes Other Substances Used: 5 A DAY Hx of Substance Use Treatment: No Family Psychiatric History None reported Allergies-Medications (Allergen,Severity, Reaction): Coded Allergies: Penicillin (Verified Allergy, Unknown, Hives, 01/06/17) Toradol (Verified Allergy, Unknown, 01/06/17) Reported Meds & Prescriptions Reported Meds & Active Scripts Active Oxycodone-Acetaminophen 10-325 mg Tab 1 Tab PO Q6H PRN Isosorbide Mononitrate ER (Isosorbide Mononitrate) 30 Mg Ronny 15 Mg PO DAILY@07 Lisinopril 5 Mg Tab 2.5 Mg PO DAILY Furosemide 20 Mg Tab 20 Mg PO BID Effient (Prasugrel) 10 Mg Tab 10 Mg PO DAILY Metoprolol Tartrate 25 Mg Tab 12.5 Mg PO Q12HR Fluticasone Nasal [place] 50 Mcg/Act Naspr 1 [place] NASAL BID Lipitor (Atorvastatin Calcium) 80 Mg Tab 80 Mg PO DAILY Ventolin Hfa 18 GM Inh (Albuterol Sulfate) 90 Mcg/Act Aer 2 Puff INH Q4-6H PRN Nitroglycerin SL (Nitroglycerin) 0.3 Mg Subl 0.3 Mg SL DIRECTED PRN ONE TABLET UNDER THE TONGUE NEEDED FOR CHEST PAIN, MAY REPEAT EVERY FIVE MINUTES FOR A TOTAL OF 3 DOSES OR CALL 911 IF NO RELIEF. Protonix (Pantoprazole Sodium) 40 Mg Tab 40 Mg PO DAILY Reported Gabapentin 600 Mg Tab 600 Mg PO TID Alprazolam 1 Mg Tab 1 Mg PO BID Aspirin 81 Mg Chew 81 Mg CHEW DAILY Review of Systems Constitutional: DENIES: Diaphoretic episodes, Fatigue, Fever, Weight gain, Weight loss, Chills, Dizziness, Change in appetite, Night Sweats Endocrine: DENIES: Heat/cold intolerance, Polydipsia, Polyuria, Polyphagia Eyes: DENIES: Blurred vision, Diplopia, Eye inflammation, Eye pain, Vision loss , Photosensitivity, Double Vision Ears, nose, mouth, throat: DENIES: Tinnitus, Hearing loss, Vertigo, Nasal discharge, Oral lesions, Throat pain, Hoarseness, Ear Pain, Running Nose, Epistaxis, Sinus Pain, Toothache, Odynophagia Respiratory: DENIES: Apneas, Cough, Snoring, Wheezing, Hemoptysis, Sputum production, Shortness of breath Cardiovascular: COMPLAINS OF: Chest pain Gastrointestinal: DENIES: Abdominal pain, Black stools, Bloody stools, Constipation, Diarrhea, Nausea, Vomiting, Difficulty Swallowing, Anorexia Genitourinary: DENIES: Sexual dysfunction, Urinary frequency, Urinary incontinence, Urgency, Hematuria, Dysuria, Nocturia, Penile Discharge, Testicular Pain, Testicular Swelling Musculoskeletal: COMPLAINS OF: Back pain Integumentary: DENIES: Abnormal pigmentation, Nail changes, Pruritus, Rash Hematologic/lymphatic: DENIES: Bruising, Lymphadenopathy Immunologic/allergic: DENIES: Eczema, Urticaria Neurologic: DENIES: Abnormal gait, Headache, Localized weakness, Paresthesias, Seizures, Speech Problems, Tremor, Poor Balance Psychiatric: COMPLAINS OF: Suicidal Ideation Exam Alert: Yes [place]: Person (ox4) Mood: Angry Affect: Euthymic Speech: Clear, Logical Eye Contact: Normal Memory Intact: Comment (no gross abnormality) Suicidal: Ideation (none reported at time of discharge) Homicidal: Ideation (negative) Insight/Judgement poor. not impaired. MDM Medical Decision Making Medical Record Reviewed: Yes Assessment/Plan 61 liliana old male who initially came to ED for evaluation of chest pain and syncopal episode who later reported suicidal ideation. Patient was monitored in Jpod and was determined that he did not present risk to self or others and the BA was lifted. He was allowed to remain in J POd for possible admission to [facility] but he refused to go to [facility]. He was demanding of narcotic pain medication and requested discharge when such were not provided. Orders Consult Vascular Access Team (01/06/17 ) Vascular Poc Ultrasound (01/06/17 ) Electrocardiogram (01/06/17 19:15) Complete Blood Count With Diff (01/06/17 19:15) Comprehensive Metabolic Panel (01/06/17 19:15) Creatine Kinase (Cpk) (01/06/17 19:15) Troponin I (01/06/17 19:15) Prothrombin Time / Inr (Pt) (01/06/17 19:15) Act Partial Throm Time (Ptt) (01/06/17 19:15) Thyroid Stimulating Hormone (01/06/17 19:15) Iv Access Insert/Monitor (01/06/17 19:15) Ecg Monitoring (01/06/17 19:15) Oximetry (01/06/17 19:15) Psych Screen (01/06/17 19:58) Drug Screen, Random Urine (01/06/17 19:58) Diet Regular Basic (01/07/17 Breakfast) Results Vital Signs Date Time Temp Pulse Resp B/P Pulse Ox O2 Delivery O2 Flow Rate FiO2 01/07/17 06:11 97.4 68 18 123/61 97 Room Air 01/06/17 18:45 95 18 118/82 97 Room Air 01/06/17 18:45 92 18 97 01/06/17 18:34 98.5 98 20 Laboratory Tests Test 01/06/17 01/06/17 18:22 19:22 White Blood Count 9.1 Red Blood Count 4.56 Hemoglobin 12.4 Hematocrit 37.4 Mean Corpuscular Volume 82.0 Mean Corpuscular Hemoglobin 27.2 Mean Corpuscular Hemoglobin 33.2 Concent Red Cell Distribution Width 16.5 Platelet Count 204 Mean Platelet Volume 9.1 Neutrophils (%) (Auto) 75.9 Lymphocytes (%) (Auto) 16.7 Monocytes (%) (Auto) 5.4 Eosinophils (%) (Auto) 1.6 Basophils (%) (Auto) 0.4 Neutrophils # (Auto) 6.9 Lymphocytes # (Auto) 1.5 Monocytes # (Auto) 0.5 Eosinophils # (Auto) 0.1 Basophils # (Auto) 0.0 CBC Comment DIFF FINAL Differential Comment Sodium Level 140 Potassium Level 4.1 Chloride Level 103 Carbon Dioxide Level 25.9 Anion Gap 11 Blood Urea Nitrogen 20 Creatinine 0.91 Estimat Glomerular Filtration 85 Rate Random Glucose 122 Calcium Level 8.7 Total Bilirubin 0.4 Aspartate Amino Transf 15 (AST/SGOT) Alanine Aminotransferase 20 (ALT/SGPT) Alkaline Phosphatase 72 Total Creatine Kinase 160 Troponin I 0.02 Total Protein 7.3 Albumin 3.8 Thyroid Stimulating Hormone 0.330 3rd Gen Prothrombin Time 10.4 Prothromb Time International 0.9 Ratio Activated Partial 27.3 Thromboplast Time Diagnosis Primary Impression: Adjustment disorder with mixed anxiety and depressed mood Psychiatrically Cleared: Yes Med/ Other Pt Specific Info: No Change to Meds Disposition: 01 DISCHARGE HOME Condition: Stable Sharron Hall Jan 07, 2017 09:50
[2017-01-07 12:15] VITALS: BP 124/65; PULSE 76; RESP 18; O2SAT 99
--- NOTE | 2017-01-07 13:39 | EKG ---
Date Performed: 01/06/2017 Time Performed: 18:34:22 PTAGE: 61 years EKG: SINUS TACHYCARDIA POSSIBLE LEFT ATRIAL ENLARGEMENT ABNORMAL RHYTHM ECG Compared to prior tr acing no significant change PREVIOUS TRACING : 01/02/2017 06.25 DOCTOR: Jeremias Rosado Interpretating Date/Time 01/07/2017 13:37:55
== END 2017-01-07 17:45 | disposition home or self-care (01) ==
LOC: NEPC 18:31 → NEPJ 01-07 17:45
DX: R55 Syncope and collapse (principal); R45.851 Suicidal ideations; I10 Essential (primary) hypertension; I25.2 Old myocardial infarction; F41.8 Other specified anxiety disorders; Z79.01 Long term (current) use of anticoagulants; E78.00 Pure hypercholesterolemia, unspecified; Z87.442 Personal history of urinary calculi
CPT/HCPCS: 80053; 82550; 84443; 84484; 85025; 85610; 85730; 93005

== ENCOUNTER 2017-01-21 20:29 | Observation (INO) | payer OTHER ==
[~2017-01-21] VITALS: Ht 167.6 cm; Wt 70.0 kg
[2017-01-21 20:33] VITALS: BP 179/87; PULSE 90; RESP 20; TEMP 97.5; O2SAT 100
[2017-01-21 20:44] VITALS: BP 130/90; PULSE 80; RESP 20; TEMP 98.9; O2SAT 99
[2017-01-21] MEDS ORDERED: ASPIRIN 81 MG CHEW TAB PO ONE (21:00)
[2017-01-21] MEDS ORDERED: SODIUM CHLORIDE 0.9% FLUSH 5 ML FLUSH IVF PRN (21:00)
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
[2017-01-21 21:11] VITALS: BP 130/81; PULSE 75; RESP 18; O2SAT 99
--- NOTE | 2017-01-21 21:20 | RADRPT ---
EXAM DATE/TIME: 01/21/2017 20:59 [facility] COMPARISON: CHEST SINGLE AP, January 02, 2017, 2:02. INDICATIONS : Syncope, chest pain MEDICAL HISTORY : Cardiovascular disease. SURGICAL HISTORY : CABG. Coronary artery stent. ENCOUNTER: Initial ACUITY: 3 days PAIN SCORE: 9/10 LOCATION: chest FINDINGS: A single view of the chest demonstrates the lungs to be symmetrically aerated without evidence of mas s, infiltrate or effusion. The cardiomediastinal contours are unremarkable and stable. Osseous stru ctures are intact and stable. CONCLUSION: No acute disease. No significant change has occurred. Carrington Monge MD on January 21, 2017 at 21:19 Board Certified Radiologist. This report was verified electronically.
[2017-01-21 21:33] LABS: AUTOMATED NEUTROPHIL # 5.3 TH/MM3 (1.8-7.7); BASOPHIL # 0.1 TH/MM3 (0-0.2); BASOPHIL % 0.6 % (0.0-2.0); EOSINOPHIL # 0.1 TH/MM3 (0-0.4); EOSINOPHIL % 1.2 % (0.0-4.0); HEMATOCRIT 39.9 % (39.0-51.0); HEMO FLAGS DIFF FINAL; LYMPH % 27.8 % (9.0-44.0); LYMPHOCYTE # 2.4 TH/MM3 (1.0-4.8); MEAN CELL VOLUME 82.4 FL (80.0-100.0); MEAN CORPUSCULAR HEMOGLOBIN 27.6 PG (27.0-34.0); MEAN CORPUSCULAR HGB CONC 33.4 % (32.0-36.0); MONO % 7.6 % (0.0-8.0); NEUT % 62.8 % (16.0-70.0); PLATELET COUNT 284 TH/MM3 (150-450); RED BLOOD COUNT 4.84 MIL/MM3 (4.50-5.90); RED CELL DISTRIBUTION WIDTH 16.3 % (11.6-17.2); WHITE BLOOD COUNT 8.5 TH/MM3 (4.0-11.0)
[2017-01-21 21:47] LABS: APTT (PATIENT) 27.8 SEC (24.3-30.1); PROTHROMBIN TIME - PATIENT 10.6 SEC (9.8-11.6)
[2017-01-21 21:55] LABS: ANION GAP 10 MEQ/L (5-15); AST (GOT) 20 U/L (15-37); BICARBONATE 25.4 MEQ/L (21.0-32.0); BLOOD UREA NITROGEN 20 MG/DL (7-18); CHLORIDE 103 MEQ/L (98-107); GLOMERULAR FILTRATION RATE 59 ML/MIN (>89); POTASSIUM 3.7 MEQ/L (3.5-5.1); SODIUM (NA) 138 MEQ/L (136-145)
--- NOTE | 2017-01-21 21:56 | RADRPT ---
EXAM DATE/TIME: 01/21/2017 21:44 [facility] COMPARISON: CT BRAIN W/O CONTRAST, January 03, 2017, 6:58. INDICATIONS : Trauma; fall. ETOH. RADIATION DOSE: 51.18 CTDIvol (mGy) MEDICAL HISTORY : Hypertension. Congestive heart failure. Chronic obstructive pulmonary disease.Asthma SURGICAL HISTORY : CABG ENCOUNTER: Initial ACUITY: 1 day PAIN SCALE: Non-responsive LOCATION: cranial TECHNIQUE: Multiple contiguous axial images were obtained of the head. Using automated exposure control and adj ustment of the mA and/or kV according to patient size, radiation dose was kept as low as reasonably a chievable to obtain optimal diagnostic quality images. FINDINGS: CEREBRUM: The ventricles are normal for age. No evidence of midline shift, mass lesion, hemorrhage or acute in farction. No extra-axial fluid collections are seen. POSTERIOR FOSSA: The cerebellum and brainstem are intact. The 4th ventricle is midline. The cerebellopontine angle i s unremarkable. EXTRACRANIAL: The visualized portion of the orbits is intact. There is mild mucosal thickening of the left maxillar y sinus. SKULL: The calvaria is intact. No evidence of skull fracture. CONCLUSION: 1. No acute hemorrhage or mass effect. 2. Mild mucosal thickening in the left maxillary sinus Billy Bradford MD on January 21, 2017 at 21:53 Board Certified Radiologist. This report was verified electronically.
[2017-01-21 22:00] LABS: ALKALINE PHOSPHATASE 81 U/L (45-117); ALT (GPT) 27 U/L (12-78); CREATINE KINASE 218 U/L (39-308); TOTAL BILIRUBIN ADULT 0.3 MG/DL (0.2-1.0)
[2017-01-21 22:12] LABS: CKMB 1.2 NG/ML (0.5-3.6)
[2017-01-21] MEDS ORDERED: MAGNESIUM HYDROXIDE SUSP 30 ML CUP PO PRN (22:30)
[2017-01-21] MEDS ORDERED: SODIUM CHLORIDE 0.9% FLUSH 5 ML FLUSH FLUSH PRN (22:30)
[2017-01-21] MEDS ORDERED: NALOXONE HCL 0.4 MG/ML AMP IV PRN (22:30)
[2017-01-21] MEDS ORDERED: ACETAMINOPHEN 325 MG TAB PO PRN (22:30)
[2017-01-21] MEDS ORDERED: oxyCODONE/ACETAMINOPHEN 5 MG/325 MG TAB PO PRN (23:45)
[2017-01-22] VITALS (11 sets, daily range): BP systolic 99–136; BP diastolic 63–83; PULSE 68–87; RESP 18–19; TEMP 95.5–97.9; O2SAT 93–96
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
[2017-01-22] MEDS: ALPRAZolam 1 MG TAB PO SCH ×4 (02:04→21:37)
[2017-01-22 04:20] LABS: BICARBONATE 26.3 MEQ/L (21.0-32.0); POTASSIUM 3.8 MEQ/L (3.5-5.1)
[2017-01-22 04:24] LABS: CREATINE KINASE 158 U/L (39-308)
[2017-01-22] MEDS ORDERED: ISOSORBIDE MONONITRATE 30 MG TAB PO SCH (07:00)
--- NOTE | 2017-01-22 07:45 | RADRPT ---
EXAM DATE/TIME: 01/22/2017 07:31 [facility] COMPARISON: CT BRAIN W/O CONTRAST, January 21, 2017, 21:44. INDICATIONS : Syncopal episode. Cephalgia. Blurry vision in left eye. RADIATION DOSE: 56.37 CTDIvol (mGy) MEDICAL HISTORY : Cardiovascular disease. Hypertension. SURGICAL HISTORY : CABG ENCOUNTER: Initial ACUITY: 1 day PAIN SCALE: 10/10 LOCATION: cranial TECHNIQUE: Multiple contiguous axial images were obtained of the head. Using automated exposure control and adj ustment of the mA and/or kV according to patient size, radiation dose was kept as low as reasonably a chievable to obtain optimal diagnostic quality images. FINDINGS: CEREBRUM: The ventricles are normal for age. No evidence of midline shift, mass lesion, hemorrhage or acute in farction. No extra-axial fluid collections are seen. POSTERIOR FOSSA: The cerebellum and brainstem are intact. The 4th ventricle is midline. The cerebellopontine angle i s unremarkable. EXTRACRANIAL: The visualized portion of the orbits is intact. Old nasal fractures. SKULL: The calvaria is intact. No evidence of skull fracture. CONCLUSION: 1. No acute intracranial abnormality. 2. Old nasal fractures. Darren Mueller MD on January 22, 2017 at 7:42 Board Certified Radiologist. This report was verified electronically.
[2017-01-22] MEDS: SODIUM CHLORIDE 0.9% FLUSH 5 ML FLUSH FLUSH SCH ×2 (08:28→21:00)
[2017-01-22] MEDS: SODIUM CHLOR 0.9% 1000 ML INJ 1,000 ML IV SCH ×2 (08:29→20:25)
[2017-01-22] MEDS: oxyCODONE/ACETAMINOPHEN 10 MG/325 MG TAB PO PRN ×3 (08:29→21:37)
[2017-01-22] MEDS: FUROSEMIDE 20 MG TAB PO SCH ×2 (09:00→21:38)
[2017-01-22] MEDS ORDERED: METOPROLOL TARTRATE 25 MG TAB PO SCH (09:00)
[2017-01-22] MEDS ORDERED: LISINOPRIL 5 MG TAB PO SCH (09:00)
[2017-01-22] MEDS: FLUTICASONE PROPIONATE 50 MCG/ACT 16 GM NASAL SPRAY NASAL SCH ×2 (09:29→21:37)
[2017-01-22] MEDS: PANTOPRAZOLE SOD 40 MG DELAYED RELEASE TAB PO SCH (09:30)
[2017-01-22] MEDS: ENOXAPARIN SODIUM 40 MG/0.4 ML SYRINGE SQ SCH (09:30)
[2017-01-22] MEDS: GABAPENTIN 300 MG CAP PO SCH ×3 (09:30→19:10)
[2017-01-22] MEDS: ASPIRIN 81 MG CHEW TAB CHEW SCH (09:30)
[2017-01-22] MEDS: ATORVASTATIN 80 MG TAB PO SCH (09:30)
[2017-01-22] MEDS: PRASUGREL 10 MG TAB PO SCH (09:32)
[2017-01-22 09:46] LABS: CREATINE KINASE 173 U/L (39-308)
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
--- NOTE | 2017-01-22 14:53 | EKG ---
Date Performed: 01/22/2017 Time Performed: 08:10:11 PTAGE: 61 years EKG: Sinus rhythm Compared to prior tracing no significant change NORMAL ECG PREVIOUS TRACING : 01/22/2017 02.08 DOCTOR: Mario Mendez Interpretating Date/Time 01/22/2017 14:49:59
--- NOTE | 2017-01-22 15:00 | EKG ---
Date Performed: 01/21/2017 Time Performed: 18:41:53 PTAGE: 61 years EKG: Sinus rhythm NORMAL ECG Compared to PREVIOUS TRACING , the sinus rate has slowed. PREVIOUS TRACIN01/06/2017 18.34 DOCTOR: Mario Mendez Interpretating Date/Time 01/22/2017 14:56:43
--- NOTE | 2017-01-22 15:00 | EKG ---
Date Performed: 01/22/2017 Time Performed: 02:08:50 PTAGE: 61 years EKG: Sinus rhythm NORMAL ECG Compared to prior tracing no significant change PREVIOUS TRACING : 01/21/2017 18.41 DOCTOR: Mario Mendez Interpretating Date/Time 01/22/2017 14:56:53
[2017-01-22] MEDS ORDERED: IOHEXOL 350 MG/ML 10 ML VIAL (for RAD DIAG) IV ONE (15:14)
--- NOTE | 2017-01-22 15:56 | RADRPT ---
EXAM DATE/TIME: 01/22/2017 15:04 [facility] COMPARISON: No previous studies available for comparison. INDICATIONS : Syncpoe episode today with chest pain. IV CONTRAST: 65 cc Omnipaque 350 (iohexol) IV RADIATION DOSE: 15.61 CTDIvol (mGy) MEDICAL HISTORY : Arthritis. Cardiovascular disease Hypertension. SURGICAL HISTORY : CABG Carotid stent. ENCOUNTER: Initial ACUITY: 1 day PAIN SCALE: 8/10 LOCATION: chest TECHNIQUE: Volumetric scanning of the chest was performed using a pulmonary embolism protocol MIP images were re constructed. Using automated exposure control and adjustment of the mA and/or kV according to patien t size, radiation dose was kept as low as reasonably achievable to obtain optimal diagnostic quality images. FINDINGS: PULMONARY ARTERIES: No filling defects are seen in the pulmonary arteries through the segmental level. LUNGS: There is no consolidation or pneumothorax . Moderate centrilobular emphysema. Minimal irregular dens ity right lower lobe laterally measuring 1.2 cm. No concerning pulmonary nodule is visualized. PLEURAE: There is no pleural thickening or pleural effusion. MEDIASTINUM: There is good visualization of the great vessels of the middle mediastinum. No evidence of mediastin al or hilar adenopathy/mass. Evidence of previous median sternotomy and CABG. MUSCULOSKELETAL: Within normal limits for patient age. MISCELLANEOUS: The visualized upper abdominal organs demonstrate no acute abnormality. CONCLUSION: 1. No evidence for pulmonary embolism. 2. Emphysema without infiltrate or mass. 3. Minimal nodular scarring right lower lobe measured 1.[address] chest in 6 months recommend ed for stability. 4. Status post CABG. Darren Mueller MD on January 22, 2017 at 15:50 Board Certified Radiologist. This report was verified electronically.
--- NOTE | 2017-01-22 16:16 | HHI.PR ---
Subjective Remarks Follow-up for recurrent syncope. The patient had a fall earlier in another syncopal episode this morning after ambulating back from the restroom. He states he feels dizzy before he falls. He states after his first fall, he developed left eye blurriness. He has a burning sensation in his left eye. He states these episodes seem to occur at random after he started then on his feet for some time, not with sitting and standing. He occasionally gets midsternal chest discomfort, describes ass short duration, sharp, and occurs at rest. He denies any alcohol or drug use. He states that back when he lived in [place] he believes he had an EGD done there, believes he was told it was abnormal, does not recall being placed on the medications. Objective Vitals Vital Signs Date Time Temp Pulse Resp B/P Pulse Ox O2 Delivery O2 Flow Rate FiO2 01/22/17 07:57 78 99/72 01/22/17 07:54 115/80 01/22/17 07:52 95.7 71 19 110/63 96 01/22/17 00:15 68 01/22/17 00:04 97.9 69 18 136/75 96 01/21/17 21:11 75 18 130/81 99 Room Air 01/21/17 20:44 98.9 80 20 130/90 99 01/21/17 20:33 97.5 90 20 179/87 100 Room Air I/O 01/21/17 01/21/17 01/21/17 01/22/17 01/22/17 01/22/17 06:59 14:59 22:59 06:59 14:59 22:59 Intake Total 120 ml Balance 120 ml Intake Oral 120 ml Result Diagram: 01/21/17205701/22/17 0339 Imaging Last Impressions Head CT 01/21/172052 Signed Impressions: Service Date/Time: Saturday, January 21, 2017 21:44 - CONCLUSION: 1. No acute hemorrhage or mass effect. 2. Mild mucosal thickening in the left maxillary sinus Billy Bradford MD Chest X-Ray 01/21/172052 Signed Impressions: Service Date/Time: Saturday, January 21, 2017 20:59 - CONCLUSION: No acute disease. No significant change has occurred. Carrington Monge MD Objective Remarks GENERAL: Well-developed well-nourished. In no acute distress. SKIN: Warm and dry. Ecchymosis left forehead. HEENT: Normocephalic. Pupils equal and round. Mucous membranes pink and moist. CARDIOVASCULAR: Regular rate and rhythm. No murmur appreciated. RESPIRATORY: No accessory muscle use. Clear to auscultation. Decreased breath sounds. GASTROINTESTINAL: Abdomen soft, non-tender, nondistended. Bowel sounds x4. MUSCULOSKELETAL: No obvious deformities. No clubbing or cyanosis. No edema. NEUROLOGICAL: Awake and alert. No focal neurological deficits. Moves upper and lower extremities spontaneously. Normal speech. PSYCHIATRIC: Anxious mood and affect; insight and judgment normal. A/P Problem List: (1) Syncope ICD Code: R55 Status: Acute (2) Chest pain ICD Code: R07.9 Status: Acute (3) COPD (chronic obstructive pulmonary disease) ICD Code: J44.9 Status: Chronic (4) Hypertension ICD Code: I10 Status: Acute Assessment and Plan 61 yo male with PMHX of HTN, HLD, CAD s/p previous CABG in 2012 and history of NSTEMI with stents 11/2016 who has been out of his medications for the past 5 days and is admitted with complaints of chest pain: Atypical Chest pain, r/o ACS Review: Troponin .02 4. EKG with NSR, no acute changes. D-dimer mildly elevated. -Monitor Tele -Consulted Cardiology, may need event monitor -Pulmonary angiogram shows emphysema, scarring, no PE, follow-up CT recommended in 6 months Syncope, recurrent Reviewed: Head CT negative. Echocardiogram 11/13 showed EF 4045 %. Brain MRI with no acute intracranial findings. Carotid ultrasound 01/03 with no evidence of stenosis. Orthostatic blood pressures are positive -EEG -Repeat 2-D echo ordered -Fall precautions Left eye pain and blurred vision, imaging as above -Consult ophthalmology CAD, chronic -Restarted home aspirin, Lipitor HTN with orthostatic hypotension -Holding home lisinopril, metoprolol -Give IVF -Monitor vitals Chronic pain medications -Pain management with Percocet po DVT prophylaxis: Lovenox Written by Aleksandr Warren, acting as scribe for Dr. Caban on 01/22/17 at 16:16. All or portions of this note were transcribed by scribe []. I, Dr. Stanton Caban personally performed the history, physical exam, and medical decision making; and confirmed the accuracy of the information in the transcribed note. Authenticated by Dr. Stanton Caban on 01/22/17 at 16:23. Problem Qualifiers (1) Syncope: Qualified Code: R55 - Syncope, unspecified syncope type (2) Chest pain: Qualified Code: R07.9 - Chest pain, unspecified type (3) COPD (chronic obstructive pulmonary disease): Qualified Code: J43.9 - Pulmonary emphysema, unspecified emphysema type (4) Hypertension: Qualified Code: I10 - Essential hypertension Aleksandr Warren Jan 22, 2017 16:16 Stanton Caban MD Jan 22, 2017 16:23
--- NOTE | 2017-01-22 18:42 | MG ---
cc: MARIBELL CARBAJAL M.D. Lab No: Date: 01/22/17 Age: 61 Sex: M Race: INDICATION An EEG was obtained on this 61-year-old patient being evaluated for syncope. DESCRIPTION OF RECORD The patient is described as awake during the study. The tracing shows 11-12 per second mid amplitude alpha rhythms in the central and posterior head regions. There are low amplitude beta rhythms frontally. The background is reactive. Photic stimulation showed a bilateral driving response. Hyperventilation showed no change. INTERPRETATION Normal predominantly awake EEG. MD YAMILA Mora/BJF /6:21 PM /6:37 PM
--- NOTE | 2017-01-22 20:09 | PD.CONS ---
History of Present Illness Service Ophthalmology Consult Requested By ED Reason for Consult left eye blurred vision Primary Care Physician No Primary Care Physician Diagnoses: History of Present Illness 61 y/o male with a history of CAD, CABG, HTN, CHF presented to the ED after having a syncopal episode/chest pain [place] [address] last night. Labs/CT head have all been normal. Pt states after he woke up he noticed his left eye was blurry. No significant ocular history. Past Family Social History Allergies: Coded Allergies: Penicillin (Verified Allergy, Unknown, Hives, 01/06/17) Toradol (Verified Allergy, Unknown, 01/06/17) Physical Exam Vital Signs Vital Signs Date Time Temp Pulse Resp B/P Pulse Ox O2 Delivery O2 Flow Rate FiO2 01/22/17 19:32 80 01/22/17 19:13 81 120/80 01/22/17 19:12 87 116/83 01/22/17 19:10 76 109/77 01/22/17 16:00 95.5 74 18 112/69 93 01/22/17 12:00 96.7 72 18 112/65 95 01/22/17 07:57 78 99/72 01/22/17 07:54 115/80 01/22/17 07:52 95.7 71 19 110/63 96 01/22/17 00:15 68 01/22/17 00:04 97.9 69 18 136/75 96 01/21/17 21:11 75 18 130/81 99 Room Air 01/21/17 20:44 98.9 80 20 130/90 99 01/21/17 20:33 97.5 90 20 179/87 100 Room Air Physical Exam Va cc at near OD 20/50, OS 20/100 EOM full OU, no diplopia CVF full OU Pupils 2-1 no APD OU IOP 13, 17 Anterior exam OD - normal eyelid, C/S W&Q, K clear, AC deep, pupil round, lens clear OS - normal eyelid, C/S W&Q, K clear, AC deep, pupil round, lens clear Laboratory Laboratory Tests Test 01/21/17 01/22/17 01/22/17 01/22/17 20:58 03:39 08:57 10:03 White Blood Count 8.5 Red Blood Count 4.84 Hemoglobin 13.3 Hematocrit 39.9 Mean Corpuscular Volume 82.4 Mean Corpuscular Hemoglobin 27.6 Mean Corpuscular Hemoglobin 33.4 Concent Red Cell Distribution Width 16.3 Platelet Count 284 Mean Platelet Volume 8.3 Neutrophils (%) (Auto) 62.8 Lymphocytes (%) (Auto) 27.8 Monocytes (%) (Auto) 7.6 Eosinophils (%) (Auto) 1.2 Basophils (%) (Auto) 0.6 Neutrophils # (Auto) 5.3 Lymphocytes # (Auto) 2.4 Monocytes # (Auto) 0.6 Eosinophils # (Auto) 0.1 Basophils # (Auto) 0.1 CBC Comment DIFF FINAL Differential Comment Prothrombin Time 10.6 Prothromb Time International 1.0 Ratio Activated Partial 27.8 Thromboplast Time Sodium Level 138 142 Potassium Level 3.7 3.8 Chloride Level 103 104 Carbon Dioxide Level 25.4 26.3 Anion Gap 10 12 Blood Urea Nitrogen 20 19 Creatinine 1.25 0.91 Estimat Glomerular Filtration 59 85 Rate Random Glucose 135 100 Calcium Level 8.8 8.7 Total Bilirubin 0.3 Aspartate Amino Transf 20 (AST/SGOT) Alanine Aminotransferase 27 (ALT/SGPT) Alkaline Phosphatase 81 Total Creatine Kinase 218 158 173 Creatine Kinase MB 1.2 Troponin I LESS THAN 0.02 LESS THAN 0.02 LESS THAN 0.02 Total Protein 7.7 Albumin 3.8 D-Dimer Quantitative (PE/DVT) 0.57 Test 01/22/17 13:54 Troponin I LESS THAN 0.02 Result Diagram: 01/21/17205701/22/17 0339 Assessment and Plan Problem List: (1) Blurred vision, left eye Status: Acute Plan: No acute eye injury. Recommend followup as outpatient for comprehensive eye exam. May need refraction for new glasses. Almaz Sarabia MD Jan 22, 2017 20:09
[2017-01-23] VITALS (7 sets, daily range): BP systolic 99–125; BP diastolic 62–79; PULSE 67–89; RESP 17–20; TEMP 95.7–98.5; O2SAT 95–98
[2017-01-23] MEDS: oxyCODONE/ACETAMINOPHEN 10 MG/325 MG TAB PO PRN ×4 (03:57→18:29)
[2017-01-23] MEDS: SODIUM CHLOR 0.9% 1000 ML INJ 1,000 ML IV SCH (08:20)
[2017-01-23] MEDS: ENOXAPARIN SODIUM 40 MG/0.4 ML SYRINGE SQ SCH (09:00)
[2017-01-23] MEDS: SODIUM CHLORIDE 0.9% FLUSH 5 ML FLUSH FLUSH SCH ×2 (09:08→20:29)
[2017-01-23] MEDS: ASPIRIN 81 MG CHEW TAB CHEW SCH (09:09)
[2017-01-23] MEDS: FUROSEMIDE 20 MG TAB PO SCH (09:09)
[2017-01-23] MEDS: ONDANSETRON HCL 4 MG/2 ML VIAL IVP PRN ×3 (09:09→23:25)
[2017-01-23] MEDS: ATORVASTATIN 80 MG TAB PO SCH (09:09)
[2017-01-23] MEDS: PRASUGREL 10 MG TAB PO SCH (09:09)
[2017-01-23] MEDS: PANTOPRAZOLE SOD 40 MG DELAYED RELEASE TAB PO SCH (09:09)
[2017-01-23] MEDS: ALPRAZolam 1 MG TAB PO SCH (09:10)
[2017-01-23] MEDS: GABAPENTIN 300 MG CAP PO SCH ×3 (09:10→18:28)
[2017-01-23] MEDS: FLUTICASONE PROPIONATE 50 MCG/ACT 16 GM NASAL SPRAY NASAL SCH ×2 (09:14→20:29)
[2017-01-23] MEDS ORDERED: PANTOPRAZOLE SOD 40 MG DELAYED RELEASE TAB PO SCH (10:15)
--- NOTE | 2017-01-23 10:56 | HHI.PR ---
Subjective Remarks Follow-up for syncope. The patient states that he had abdominal pain, vomiting , sweating overnight. Continues to have nausea. Objective Vitals Vital Signs Date Time Temp Pulse Resp B/P Pulse Ox O2 Delivery O2 Flow Rate FiO2 01/23/17 07:51 96.4 77 17 118/79 95 01/23/17 04:32 89 20 125/76 95 01/22/17 19:32 80 01/22/17 19:13 81 120/80 01/22/17 19:12 87 116/83 01/22/17 19:10 76 109/77 01/22/17 16:00 95.5 74 18 112/69 93 01/22/17 12:00 96.7 72 18 112/65 95 Result Diagram: 01/21/17205701/22/17338 Imaging Last Impressions Head CT 01/22/17 0000 Signed Impressions: Service Date/Time: Sunday, January 22, 2017 07:31 - CONCLUSION: 1. No acute intracranial abnormality. 2. Old nasal fractures. Darren Mueller MD CT Angiography 01/22/17 0000 Signed Impressions: Service Date/Time: Sunday, January 22, 2017 15:04 - CONCLUSION: 1. No evidence for pulmonary embolism. 2. Emphysema without infiltrate or mass. 3. Minimal nodular scarring right lower lobe measured 1.[address] chest in 6 months recommended for stability. 4. Status post CABG. Darren Mueller MD Chest X-Ray 01/21/172052 Signed Impressions: Service Date/Time: Saturday, January 21, 2017 20:59 - CONCLUSION: No acute disease. No significant change has occurred. Carrington Monge MD Objective Remarks GENERAL: Well-developed well-nourished. In no acute distress. SKIN: Warm and dry. Ecchymosis left forehead. HEENT: Normocephalic. Pupils equal and round. Mucous membranes pink and moist. CARDIOVASCULAR: Regular rate and rhythm. No murmur appreciated. RESPIRATORY: No accessory muscle use. Clear to auscultation. Decreased breath sounds. GASTROINTESTINAL: Abdomen soft, mild epigastric TTP, nondistended. Bowel sounds x4. MUSCULOSKELETAL: No obvious deformities. No clubbing or cyanosis. No edema. NEUROLOGICAL: Awake and alert. No focal neurological deficits. Moves upper and lower extremities spontaneously. Normal speech. PSYCHIATRIC: Anxious mood and affect; insight and judgment normal. A/P Problem List: (1) Syncope ICD Code: R55 Status: Acute (2) Chest pain ICD Code: R07.9 Status: Acute (3) COPD (chronic obstructive pulmonary disease) ICD Code: J44.9 Status: Chronic (4) Hypertension ICD Code: I10 Status: Acute Assessment and Plan 61 yo male with PMHX of HTN, HLD, CAD s/p previous CABG in 2012 and history of NSTEMI with stents 11/2016 who has been out of his medications for the past 5 days and is admitted with complaints of chest pain: Atypical Chest pain, r/o ACS Review: Troponin .02 4. EKG with NSR, no acute changes. D-dimer mildly elevated. -Monitor Tele -Consulted Cardiology, may need event monitor -Pulmonary angiogram shows emphysema, scarring, no PE, follow-up CT recommended in 6 months Syncope, recurrent Reviewed: Head CT negative. Echocardiogram 11/13 showed EF 4045 %. Brain MRI with no acute intracranial findings. Carotid ultrasound 01/03 with no evidence of stenosis. Orthostatic blood pressures are positive -EEG unremarkable -Fall precautions Left eye pain and blurred vision, imaging as above -Consulted ophthalmology, recommended outpatient follow-up CAD, chronic -Restarted home aspirin, Lipitor HTN with orthostatic hypotension BP improving -Holding home lisinopril, metoprolol -IVF, caution with CHF -Monitor vitals Chronic pain medications -Pain management with Percocet po Nausea, vomiting, abdominal pain -Start Protonix -Check lipase -Follow-up BMP -Hold Lasix DVT prophylaxis: Lovenox Written by Aleksandr Warren, acting as scribe for Dr. Caban on 01/23/17 at 10:54. All or portions of this note were transcribed by scribe []. I, Dr. Stanton Caban personally performed the history, physical exam, and medical decision making; and confirmed the accuracy of the information in the transcribed note. Authenticated by Dr. Stanton Caban on 01/23/17 at 16:19. Problem Qualifiers (1) Syncope: Qualified Code: R55 - Syncope, unspecified syncope type (2) Chest pain: Qualified Code: R07.9 - Chest pain, unspecified type (3) COPD (chronic obstructive pulmonary disease): Qualified Code: J43.9 - Pulmonary emphysema, unspecified emphysema type (4) Hypertension: Qualified Code: I10 - Essential hypertension Aleksandr Warren Jan 23, 2017 10:55 Stanton Caban MD Jan 23, 2017 16:19
[2017-01-23 12:00] LABS: BICARBONATE 27.4 MEQ/L (21.0-32.0); POTASSIUM 3.9 MEQ/L (3.5-5.1)
[2017-01-23] MEDS ORDERED: NS + KCL 20 MEQ INJ 1,000 ML IV PRN (12:00)
--- NOTE | 2017-01-23 15:34 | RADRPT ---
EXAM DATE/TIME: 01/23/2017 15:12 [facility] COMPARISON: No previous studies available for comparison. INDICATIONS : Abdominal pain and constipation for several days. MEDICAL HISTORY : Arthritis. Cardiovascular disease Hypertension. SURGICAL HISTORY : CABG. Carotid stent. ENCOUNTER: Initial ACUITY: 3 days PAIN SCORE: 5/10 LOCATION: Abdomen, all quadrants. FINDINGS: Supine view of the abdomen was performed. The abdominal bowel gas pattern is normal. No abnormal ma sses, calcifications, or organomegaly is seen. There is degenerative change in the lumbar spine. CONCLUSION: No acute disease. Cr Tay MD on January 23, 2017 at 15:32 Board Certified Radiologist. This report was verified electronically.
[2017-01-23] MEDS ORDERED: ALPRAZolam 1 MG TAB PO PRN (23:45)
[2017-01-24] MEDS: oxyCODONE/ACETAMINOPHEN 10 MG/325 MG TAB PO PRN ×2 (00:26→10:07)
[2017-01-24 02:18] VITALS: PULSE 76
[2017-01-24 05:56] VITALS: BP 115/60; PULSE 78; RESP 20; TEMP 97.9; O2SAT 95
[2017-01-24 07:27] VITALS: PULSE 68
[2017-01-24 07:40] VITALS: BP 103/60; PULSE 71; RESP 18; TEMP 98; O2SAT 99
[2017-01-24] MEDS: SODIUM CHLORIDE 0.9% FLUSH 5 ML FLUSH FLUSH SCH ×2 (09:00→21:35)
[2017-01-24] MEDS: FLUTICASONE PROPIONATE 50 MCG/ACT 16 GM NASAL SPRAY NASAL SCH ×2 (09:00→21:35)
--- NOTE | 2017-01-24 09:20 | HHI.PR ---
Subjective Remarks Follow up for recurrent syncope, chest pain, nausea/vomiting. The patient reports he was standing at bedside, became dizzy, and passed out this morning. He also reports continued nausea/vomiting today. Discussed with RN, none of this was witnessed overnight or today. Patient has bed alarm however continuously stands from bed and ambulates the hallways and to the bathroom. Of note, patient states "I would leave here if it wasn't so cold out". Objective Vitals Vital Signs Date Time Temp Pulse Resp B/P Pulse Ox O2 Delivery O2 Flow Rate FiO2 01/24/17 07:40 98.0 71 18 103/60 99 01/24/17 05:56 97.9 78 20 115/60 95 01/24/17 02:18 76 01/23/17 23:44 98.0 70 20 116/71 97 01/23/17 19:44 98.5 75 20 120/62 96 01/23/17 18:17 96.2 70 18 120/67 95 01/23/17 17:50 67 01/23/17 12:20 95.7 78 18 110/77 98 99/70 122/68 I/O 01/23/17 01/23/17 01/23/17 01/24/17 01/24/17 01/24/17 07:00 15:00 23:00 07:00 15:00 23:00 Output Total 300 ml 120 ml Balance -300 ml -120 ml Output Urine Total 300 ml Emesis 120 ml # Voids 2 Result Diagram: 01/21/17205701/23/177 Imaging Last Impressions Abdomen X-Ray 01/23/17 0000 Signed Impressions: Service Date/Time: Monday, January 23, 2017 15:12 - CONCLUSION: No acute disease. Cr Tay MD Head CT 01/22/17 0000 Signed Impressions: Service Date/Time: Sunday, January 22, 2017 07:31 - CONCLUSION: 1. No acute intracranial abnormality. 2. Old nasal fractures. Darren Mueller MD CT Angiography 01/22/17 0000 Signed Impressions: Service Date/Time: Sunday, January 22, 2017 15:04 - CONCLUSION: 1. No evidence for pulmonary embolism. 2. Emphysema without infiltrate or mass. 3. Minimal nodular scarring right lower lobe measured 1.[address] chest in 6 months recommended for stability. 4. Status post CABG. Darren Mueller MD Chest X-Ray 01/21/172052 Signed Impressions: Service Date/Time: Saturday, January 21, 2017 20:59 - CONCLUSION: No acute disease. No significant change has occurred. Carrington Monge MD Objective Remarks GENERAL: Well-nourished, well-developed male patient in NAD. Ambulatory. SKIN: Warm and dry. No rash. HEENT: Normocephalic. Minimal Ecchymosis left forehead.Pupils equal and round. No scleral icterus. No injection or drainage. Mucous membranes pink and moist. NECK: Supple. Trachea midline. CARDIOVASCULAR: Regular rate and rhythm. S1, S2 noted. No murmur appreciated. RESPIRATORY: No accessory muscle use. Clear to auscultation. Breath sounds equal bilaterally. GASTROINTESTINAL: Abdomen soft, non-tender, nondistended. Normoactive bowel sounds x4. MUSCULOSKELETAL: No obvious deformities. Extremities without clubbing, cyanosis , or edema. NEUROLOGICAL: Awake and alert. No obvious cranial nerve deficits. Motor grossly within normal limits. 5/5 muscle strength in bilateral upper and lower extremities. Normal speech. PSYCHIATRIC: Anxious mood; insight and judgment normal. Medications and IVs Current Medications Medications (Trade) Dose Ordered Sig/Libby Route Start Time Stop Time Status Last Admin (NS Flush) 2 ml UNSCH PRN FLUSH 01/21/17 22:30 (NS Flush) 2 ml BID FLUSH 01/22/17 09:00 01/23/17 09:08 (Tylenol) 650 mg Q4H PRN PO 01/21/17 22:30 (Zofran Inj) 4 mg Q6H PRN IVP 01/21/17 22:30 01/24/17 10:08 (Milk Of Magnesia Liq) 30 ml Q12H PRN PO 01/21/17 22:30 (Narcan Inj) 0.4 mg UNSCH PRN IV 01/21/17 22:30 (Percocet 5-325 Mg) 1 tab Q6H PRN PO 01/21/17 23:45 01/21/17 23:52 (Xanax) 1 mg BID PO 01/22/17 01:45 01/24/17 10:07 (Aspirin Chew) 81 mg DAILY CHEW 01/22/17 09:00 01/24/17 10:08 (Lipitor) 80 mg DAILY PO 01/22/17 09:00 01/24/17 10:09 (Flonase Philippe Spr) 1 spray BID NASAL 01/22/17 09:00 01/23/17 09:14 (Lasix) 20 mg BID PO 01/22/17 09:00 Hold 01/23/17 09:09 (Neurontin) 600 mg TID PO 01/22/17 09:00 01/24/17 10:08 (Imdur) 15 mg DAILY@07 PO 01/22/17 07:00 Hold (Prinivil) 2.5 mg DAILY PO 01/22/17 09:00 Hold (Lopressor) 12.5 mg Q12HR PO 01/22/17 09:00 Hold (Protonix) 40 mg DAILY PO 01/22/17 09:00 01/24/17 10:08 (Effient) 10 mg DAILY PO 01/22/17 09:00 01/24/17 10:08 (Percocet 10-325 Mg) 1 tab Q6H PRN PO 01/22/17 01:45 01/24/17 10:07 Enoxaparin Sodium 40 mg 40 mg Q24H SQ 01/22/17 09:00 01/24/17 10:06 (NS + KCl 20 Meq Inj) 1,000 ml @ 60 mls/hr [id number] PRN IV 01/23/17 12:00 01/23/17 14:58 A/P Problem List: (1) Syncope ICD Code: R55 Status: Acute (2) Chest pain ICD Code: R07.9 Status: Acute (3) COPD (chronic obstructive pulmonary disease) ICD Code: J44.9 Status: Chronic (4) Hypertension ICD Code: I10 Status: Acute Assessment and Plan 61 yo male with PMHX of HTN, HLD, CAD s/p previous CABG in 2012 and history of NSTEMI with stents 11/2016 who has been out of his medications for the past 5 days and is admitted with complaints of chest pain: Atypical Chest pain, r/o ACS Review: Troponin .02 4. EKG with NSR, no acute changes. D-dimer mildly minimally elevated at 0.57. -Recent nuclear stress test 12/20/16 unremarkable, has partially fixed lateral wall defect. -Monitor Tele, unremarkable -Consulted Cardiology, may need event monitor, however patient is noncompliant and will need to f/up as outpatient with cardiology. -Pulmonary angiogram shows emphysema, scarring, no PE, follow-up CT recommended in 6 months -Cleared for discharge by cardiology Syncope, recurrent Reviewed: Head CT negative. Echocardiogram 11/13 showed EF 4045 %. Brain MRI with no acute intracranial findings. Carotid ultrasound 01/03 with no evidence of stenosis. Also had extensive work up done by Neurology at [facility]. -Orthostatic blood pressures minimally positive -EEG unremarkable -Fall precautions Left eye pain and blurred vision, imaging as above -Consulted ophthalmology, recommended outpatient follow-up CAD, chronic -Restarted home aspirin, Lipitor HTN with orthostatic hypotension BP improving -Held home lisinopril, metoprolol -IVF, caution with CHF -Monitor vitals Chronic pain medications -Pain management with Percocet po -needs to f/up as outpatient for pain medications Nausea, vomiting, abdominal pain -Started Protonix -Lipase wnl -BMP completely normal -Held Lasix -Abdominal xray images reviewed by me, unremarkable Malingering: patient has been seen here 5x in the past month, also with extensive work ups done at [facility] in the past 2 months. Multiple providers previously documented suspected malingering, including prior evaluations by myself and neurology. Patient has repeated cycle of same complaints which include syncope, falls, chest pain, and nausea; although none of this is ever witnessed by staff. Discussed with RN, plan to discharge today if no witnessed vomiting or syncope. Of note, patient stated today, "I would just leave if it wasn't so cold out". DVT prophylaxis: Lovenox Written by Mellissa Asif, acting as scribe for Dr. aCban on 01/24/17 at 09: 19. All or portions of this note were transcribed by scribe []. I, Dr. Stanton Caban personally performed the history, physical exam, and medical decision making; and confirmed the accuracy of the information in the transcribed note. Authenticated by Dr. Stanton Caban on 01/24/17 at 14:07. Discharge Planning Discharge today if no witnessed vomiting. Discussed with RN. Problem Qualifiers (1) Syncope: Qualified Code: R55 - Syncope, unspecified syncope type (2) Chest pain: Qualified Code: R07.9 - Chest pain, unspecified type (3) COPD (chronic obstructive pulmonary disease): Qualified Code: J43.9 - Pulmonary emphysema, unspecified emphysema type (4) Hypertension: Qualified Code: I10 - Essential hypertension Mellissa Asif PA-C Jan 24, 2017 09:20 Stanton Caban MD Jan 24, 2017 14:07
[2017-01-24] MEDS: ENOXAPARIN SODIUM 40 MG/0.4 ML SYRINGE SQ SCH (10:06)
[2017-01-24] MEDS: ALPRAZolam 1 MG TAB PO SCH ×2 (10:07→21:35)
[2017-01-24] MEDS: PANTOPRAZOLE SOD 40 MG DELAYED RELEASE TAB PO SCH (10:08)
[2017-01-24] MEDS: GABAPENTIN 300 MG CAP PO SCH ×3 (10:08→17:58)
[2017-01-24] MEDS: ASPIRIN 81 MG CHEW TAB CHEW SCH (10:08)
[2017-01-24] MEDS: ONDANSETRON HCL 4 MG/2 ML VIAL IVP PRN ×2 (10:08→17:59)
[2017-01-24] MEDS: PRASUGREL 10 MG TAB PO SCH (10:08)
[2017-01-24] MEDS: ATORVASTATIN 80 MG TAB PO SCH (10:09)
--- NOTE | 2017-01-24 11:35 | HHI.DCPOC ---
Discharge Care Plan Goals to Promote Your Health * To prevent worsening of your condition and complications * To maintain your health at the optimal level Directions to Meet Your Goals Take your medications as prescribed Follow your dietary instruction Follow activity as directed Keep your appointments as scheduled Take your immunizations and boosters as scheduled If your symptoms worsen call your PCP, if no PCP go to Urgent Care Center or Emergency Room Smoking is Dangerous to Your Health. Avoid second hand smoke Call the 24-hour hour crisis hotline for domestic abuse at Mellissa Asif PA-C Jan 24, 2017 11:34 am
[2017-01-24 11:46] VITALS: BP 120/65; PULSE 77; RESP 16; TEMP 97.9; O2SAT 96
[2017-01-24 12:34] LABS: BICARBONATE 28.6 MEQ/L (21.0-32.0); MAGNESIUM 2.2 MG/DL (1.5-2.5); POTASSIUM 4.4 MEQ/L (3.5-5.1)
--- NOTE | 2017-01-24 18:26 | HHI.DS ---
Discharge Summary Admission Date Jan 21, 2017 at 22:24 Discharge Date: Jan 25, 2017 Admitting Diagnosis syncope, chest pain (1) Syncope ICD Code: R55 Diagnosis: Principal (2) Chest pain ICD Code: R07.9 Diagnosis: Principal (3) COPD (chronic obstructive pulmonary disease) ICD Code: J44.9 Diagnosis: Secondary (4) Hypertension ICD Code: I10 Diagnosis: Secondary (5) Nausea & vomiting ICD Code: R11.2 Diagnosis: Secondary (6) Malingering ICD Code: Z76.5 Diagnosis: Secondary Procedures None. Brief History - From Admission 61 y/o male with a history of CAD, CABG, HTN, CHF (EF 40-45%) presented to the ED after having a syncopal episode while playing a guitar on [employer]. He states 3 songs before he lost conscious he had chest pain and then passed out. He did hit his head, and complains of a throbbing headache. Patient states he has not taken any of his prescribed medications for 5 days because his back pack was stollen. He also complains of sharp intermittent mid chest pain that does not radiate. Associated symptoms include nausea. He is upset that he is here and that he keeps passing out. It is uncertain if he is compliant with all medications. He is asking for his pain medications and Xanax. Patient denies any sob, fever or chills. Patient was admitted in Jan 02, 2017 with the same symptoms and story. Stress test was negative, Carotid ultrasound was negative, neurology workup was negative. He was seen in [facility] a few weeks prior, and Dr. Tate did a complete workup there. Last Echo was done 11/2016 showed EF 40-45%. CBC/BMP: 01/21/178 01/24/17 1137 Significant Findings Laboratory Tests Test 01/21/17 01/22/17 01/22/17 01/22/17 20:58 03:39 08:57 10:03 Blood Urea Nitrogen 20 MG/DL (7-18) 19 MG/DL (7-18) Estimat Glomerular Filtration 59 ML/MIN (>89) 85 ML/MIN (>89) Rate Random Glucose 135 MG/DL (74-106) Troponin I LESS THAN 0.02 LESS THAN 0.02 LESS THAN 0.02 NG/ML NG/ML NG/ML (0.02-0.05) (0.02-0.05) (0.02-0.05) D-Dimer Quantitative (PE/DVT) 0.57 MG/L FEU (0.00-0.50) Test 01/22/17 01/23/17 01/24/17 13:54 11:07 11:37 Troponin I LESS THAN 0.02 NG/ML (0.02-0.05) Estimat Glomerular Filtration 75 ML/MIN (>89) 78 ML/MIN (>89) Rate Lipase 66 U/L (73-393) Random Glucose 117 MG/DL (74-106) Imaging Last Impressions Abdomen X-Ray 01/23/17 0000 Signed Impressions: Service Date/Time: Monday, January 23, 2017 15:12 - CONCLUSION: No acute disease. Cr Tay MD Head CT 01/22/17 0000 Signed Impressions: Service Date/Time: Sunday, January 22, 2017 07:31 - CONCLUSION: 1. No acute intracranial abnormality. 2. Old nasal fractures. Darren Mueller MD CT Angiography 01/22/17 0000 Signed Impressions: Service Date/Time: Sunday, January 22, 2017 15:04 - CONCLUSION: 1. No evidence for pulmonary embolism. 2. Emphysema without infiltrate or mass. 3. Minimal nodular scarring right lower lobe measured 1.[address] chest in 6 months recommended for stability. 4. Status post CABG. Darren Mueller MD Chest X-Ray 01/21/172052 Signed Impressions: Service Date/Time: Saturday, January 21, 2017 20:59 - CONCLUSION: No acute disease. No significant change has occurred. Carrington Monge MD PE at Discharge GENERAL: Well-nourished, well-developed male patient in [facility]. Patient ambulating around the unit. SKIN: Warm and dry. No rash. HEENT: Normocephalic. Minimal Ecchymosis left forehead. Pupils equal and round. No scleral icterus. No injection or drainage. Mucous membranes pink and moist. NECK: Supple. Trachea midline. CARDIOVASCULAR: Regular rate and rhythm. S1, S2 noted. No murmur appreciated. RESPIRATORY: No accessory muscle use. Clear to auscultation. Breath sounds equal bilaterally. GASTROINTESTINAL: Abdomen soft, non-tender, nondistended. Normoactive bowel sounds x4. MUSCULOSKELETAL: No obvious deformities. Extremities without clubbing, cyanosis , or edema. NEUROLOGICAL: Awake and alert. No obvious cranial nerve deficits. Motor grossly within normal limits. 5/5 muscle strength in bilateral upper and lower extremities. Normal speech. No gait abnormality, patient seen ambulating around the unit with no assistive device, no unsteadiness. PSYCHIATRIC: Anxious mood; insight and judgment normal. Hospital Course 61 yo male with PMHX of HTN, HLD, CAD s/p previous CABG in 2012 and history of NSTEMI with stents 11/2016 who has been out of his medications for the past 5 days and is admitted with complaints of chest pain: Atypical Chest pain, r/o ACS Reviewed: Troponin 0.02 4. EKG with NSR, no acute changes. D-dimer mildly minimally elevated at 0.57. -Recent nuclear stress test 12/20/16 unremarkable, has partially fixed lateral wall defect. -Monitor Tele, unremarkable -Consulted Cardiology, may need event monitor, however patient is noncompliant and will need to f/up as outpatient with cardiology. -Pulmonary angiogram shows emphysema, scarring, no PE, follow-up CT recommended in 6 months -Cleared for discharge by cardiology on home cardiac meds Syncope, recurrent Reviewed: Head CT negative. Echocardiogram 11/13 showed EF 4045 %. Brain MRI with no acute intracranial findings. Carotid ultrasound 01/03 with no evidence of stenosis. Also had extensive work up done by Neurology at [facility], discussed in depth with Dr. Tate on previous admission. -Holding patient's lisinopril 2.5mg and metoprolol 12.5, patient cannot tolerate these medications, BP much improved after holding these meds, possible repeat admissions secondary to hypotension while on these meds -Orthostatic blood pressures minimally positive -EEG unremarkable -Fall precautions Left eye pain and blurred vision, imaging as above -Consulted ophthalmology, no injury to the eye, recommended outpatient follow -up for comprehensive eye exam CAD, chronic -Restarted home aspirin, Lipitor HTN with orthostatic hypotension BP improving -Held home lisinopril, metoprolol -IVF, caution with CHF -Monitor vitals, much improved, patient ambulatory without difficulty Chronic pain medications -Pain management with Percocet po -needs to f/up as outpatient for pain medications Nausea, vomiting, abdominal pain -Started Protonix -Lipase wnl, BMP completely normal -Held Lasix -Abdominal xray images reviewed by me, unremarkable -Patient with episode of unwitnessed vomiting, patient would eat his meals however then RN would find liquid in a basin but never seen actively vomiting, ordered a sitter, and no further vomiting was witnessed Malingering: patient has been seen here 5x in the past month, also with extensive work ups done at [facility] within the past 2 months. Multiple providers previously documented suspected malingering, including prior evaluations by myself, neurology, and psychiatry. Patient has repeated cycle of same complaints which include headache, syncope, falls, chest pain, and nausea; although none of this is ever witnessed by staff. Discussed with RN, plan to discharge today if no witnessed vomiting or syncope. Of note, patient stated, " I would just leave if it wasn't so cold out". 01/25 Patient was kept again overnight because correctional case records supervisor deemed unsafe discharge as patient claiming he had no where to go last night however he does have somewhere to go today. clinical team manager has already given the patient 2 bus passes at discharge. DVT prophylaxis: Lovenox 0815hrs: After I had printed all of his prescriptions and the nurse handed these to him, he ripped them up and said "these aren't my right medications". He also threw all of his discharge paperwork in the trash. The patient was ambulating the hallways without any difficulty for at least twenty minutes prior to discharge, awaiting for bus passes. Mellissa Asif PA-C, MD Pt Condition on Discharge: Stable Discharge Disposition: Discharge Home Discharge Time: > 30 minutes Discharge Instructions DIET: Follow Instructions for: Heart Healthy Diet Activities you can perform: Regular-No Restrictions Follow up Referrals: Cardiology - 1 Week with Iza Perez MD Neurology - 1 Week Ophthalmology - 1 Week PCP Follow-up - 1 Week Changed Medications: Furosemide (Furosemide) 20 Mg Tab 20 MG PO DAILY CHF #30 TAB (Changed from: BID; 60) Continued Medications: Albuterol 18 GM Inh (Ventolin Hfa 18 GM Inh) 90 Mcg/Act Aer 2 PUFF INH Q4-6H PRN SOB/WHEEZING #1 INHALER Alprazolam (Alprazolam) 1 Mg Tab 1 MG PO BID ANXIETY Ref 0 TAB Aspirin (Aspirin) 81 Mg Chew 81 MG CHEW DAILY Blood Clot Prevention #30 Ref 0 TAB (This prescription has been renewed) Atorvastatin (Lipitor) 80 Mg Tab 80 MG PO DAILY cholesterol #30 TAB (This prescription has been renewed) Fluticasone Nasal [place] (Fluticasone Nasal [place]) 50 Mcg/Act Naspr 1 SPRAY NASAL BID nasal congestion #1 BOTTLE Gabapentin (Gabapentin) 600 Mg Tab 600 MG PO TID #90 Ref 0 TAB Isosorbide Mononitrate ER (Isosorbide Mononitrate ER) 30 Mg Ronny 15 MG PO DAILY@07 chest pain #30 TAB (This prescription has been renewed) Nitroglycerin SL (Nitroglycerin SL) 0.3 Mg Subl 0.3 MG SL DIRECTED ONE TABLET UNDER THE TONGUE NEEDED FOR CHEST PAIN, MAY REPEAT EVERY FIVE MINUTES FOR A TOTAL OF 3 DOSES OR CALL 911 IF NO RELIEF. PRN CHEST PAIN #10 Ref 0 TAB.SL Oxycodone-Acetaminophen (Oxycodone-Acetaminophen) 10-325 mg Tab 1 TAB PO Q6H PRN PAIN #20 Ref 0 TAB Pantoprazole (Protonix) 40 Mg Tab 40 MG PO DAILY Reflux #30 Ref 0 TAB Prasugrel (Effient) 10 Mg Tab 10 MG PO DAILY cad #30 TAB (This prescription has been renewed) Discontinued Medications: Lisinopril (Lisinopril) 5 Mg Tab 2.5 MG PO DAILY CHF #30 TAB Metoprolol Tartrate (Metoprolol Tartrate) 25 Mg Tab 12.5 MG PO Q12HR CAD #60 TAB Mellissa Asif PA-C Jan 24, 2017 18:26 Stanton Caban MD Jan 27, 2017 16:37
[2017-01-24 19:04] VITALS: BP 116/65; PULSE 73; RESP 18; TEMP 98; O2SAT 96
[2017-01-24] MEDS: oxyCODONE/ACETAMINOPHEN 5 MG/325 MG TAB PO PRN (19:21)
[2017-01-25] MEDS: oxyCODONE/ACETAMINOPHEN 5 MG/325 MG TAB PO PRN (04:44)
[2017-01-25 06:15] VITALS: RESP 18
--- NOTE | 2017-01-25 07:31 | HHI.PR ---
Subjective Remarks Follow-up for chest pain, syncope, nausea/vomiting. Patient has no medical complaints overnight. Denies any further nausea/vomiting. Tolerating oral intake. No falls overnight. Discussed with my RN and daytime RN, apparently the patient was not discharged last night because telehealth case manager deemed him an unsafe discharge. Patient states he has a place to go today, however did not have a place to go yesterday. He understands he'll be discharged today. He is requesting refills of all of his medications, however reiterated that the patient would not be receiving any pain medications at discharge. The patient then states "Oh I have plenty of pain medications." Objective Vitals Vital Signs Date Time Temp Pulse Resp B/P Pulse Ox O2 Delivery O2 Flow Rate FiO2 01/25/17 06:15 18 01/24/17 19:04 98.0 73 18 116/65 96 01/24/17 11:46 97.9 77 16 120/65 96 01/24/17 07:40 98.0 71 18 103/60 99 01/24/17 07:27 68 I/O 01/24/17 01/24/17 01/24/17 01/25/17 01/25/17 01/25/17 07:00 15:00 23:00 07:00 15:00 23:00 Output Total 120 ml Balance -120 ml Emesis 120 ml # Voids 2 1 1 Result Diagram: 01/21/17205701/24/17 113 Imaging Last Impressions Abdomen X-Ray 01/23/17 0000 Signed Impressions: Service Date/Time: Monday, January 23, 2017 15:12 - CONCLUSION: No acute disease. Cr Tay MD Head CT 01/22/17 0000 Signed Impressions: Service Date/Time: Sunday, January 22, 2017 07:31 - CONCLUSION: 1. No acute intracranial abnormality. 2. Old nasal fractures. Darren Mueller MD CT Angiography 01/22/17 0000 Signed Impressions: Service Date/Time: Sunday, January 22, 2017 15:04 - CONCLUSION: 1. No evidence for pulmonary embolism. 2. Emphysema without infiltrate or mass. 3. Minimal nodular scarring right lower lobe measured 1.[address] chest in 6 months recommended for stability. 4. Status post CABG. Darren Mueller MD Chest X-Ray 01/21/172052 Signed Impressions: Service Date/Time: Saturday, January 21, 2017 20:59 - CONCLUSION: No acute disease. No significant change has occurred. Carrington Monge MD Objective Remarks GENERAL: Well-nourished, well-developed male patient in [facility]. Patient ambulating around the unit. SKIN: Warm and dry. No rash. HEENT: Normocephalic. Minimal Ecchymosis left forehead. Pupils equal and round. No scleral icterus. No injection or drainage. Mucous membranes pink and moist. NECK: Supple. Trachea midline. CARDIOVASCULAR: Regular rate and rhythm. S1, S2 noted. No murmur appreciated. RESPIRATORY: No accessory muscle use. Clear to auscultation. Breath sounds equal bilaterally. GASTROINTESTINAL: Abdomen soft, non-tender, nondistended. Normoactive bowel sounds x4. MUSCULOSKELETAL: No obvious deformities. Extremities without clubbing, cyanosis , or edema. NEUROLOGICAL: Awake and alert. No obvious cranial nerve deficits. Motor grossly within normal limits. 5/5 muscle strength in bilateral upper and lower extremities. Normal speech. No gait abnormality, patient seen ambulating around the unit with no assistive device, no unsteadiness. PSYCHIATRIC: Anxious mood; insight and judgment normal. Procedures None. Medications and IVs Current Medications Medications (Trade) Dose Ordered Sig/Libby Route Start Time Stop Time Status Last Admin (NS Flush) 2 ml UNSCH PRN FLUSH 01/21/17 22:30 (NS Flush) 2 ml BID FLUSH 01/22/17 09:00 01/24/17 21:35 (Tylenol) 650 mg Q4H PRN PO 01/21/17 22:30 (Zofran Inj) 4 mg Q6H PRN IVP 01/21/17 22:30 01/24/17 17:59 (Milk Of Magnesia Liq) 30 ml Q12H PRN PO 01/21/17 22:30 (Narcan Inj) 0.4 mg UNSCH PRN IV 01/21/17 22:30 (Xanax) 1 mg BID PO 01/22/17 01:45 01/24/17 21:35 (Aspirin Chew) 81 mg DAILY CHEW 01/22/17 09:00 01/24/17 10:08 (Lipitor) 80 mg DAILY PO 01/22/17 09:00 01/24/17 10:09 (Flonase Philippe Spr) 1 spray BID NASAL 01/22/17 09:00 01/24/17 21:35 (Lasix) 20 mg BID PO 01/22/17 09:00 Hold 01/23/17 09:09 (Neurontin) 600 mg TID PO 01/22/17 09:00 01/24/17 17:58 (Imdur) 15 mg DAILY@07 PO 01/22/17 07:00 Hold (Prinivil) 2.5 mg DAILY PO 01/22/17 09:00 Hold (Lopressor) 12.5 mg Q12HR PO 01/22/17 09:00 Hold (Protonix) 40 mg DAILY PO 01/22/17 09:00 01/24/17 10:08 (Effient) 10 mg DAILY PO 01/22/17 09:00 01/24/17 10:08 Enoxaparin Sodium 40 mg 40 mg Q24H SQ 01/22/17 09:00 01/24/17 10:06 (NS + KCl 20 Meq Inj) 1,000 ml @ 60 mls/hr [id number] PRN IV 01/23/17 12:00 01/23/17 14:58 (Percocet 5-325 Mg) 1 tab Q8H PRN PO 01/24/17 19:00 01/25/17 04:44 Urinary Catheter: No Vascular Central Line Catheter: No A/P Problem List: (1) Syncope ICD Code: R55 Status: Acute (2) Chest pain ICD Code: R07.9 Status: Acute (3) COPD (chronic obstructive pulmonary disease) ICD Code: J44.9 Status: Chronic (4) Hypertension ICD Code: I10 Status: Acute (5) Nausea & vomiting ICD Code: R11.2 Status: Acute (6) Malingering ICD Code: Z76.5 Status: Acute Assessment and Plan 61 yo male with PMHX of HTN, HLD, CAD s/p previous CABG in 2012 and history of NSTEMI with stents 11/2016 who has been out of his medications for the past 5 days and is admitted with complaints of chest pain: Atypical Chest pain, r/o ACS Reviewed: Troponin 0.02 4. EKG with NSR, no acute changes. D-dimer mildly minimally elevated at 0.57. -Recent nuclear stress test 12/20/16 unremarkable, has partially fixed lateral wall defect. -Monitor Tele, unremarkable -Consulted Cardiology, may need event monitor, however patient is noncompliant and will need to f/up as outpatient with cardiology. -Pulmonary angiogram shows emphysema, scarring, no PE, follow-up CT recommended in 6 months -Cleared for discharge by cardiology on home cardiac meds Syncope, recurrent Reviewed: Head CT negative. Echocardiogram 11/13 showed EF 4045 %. Brain MRI with no acute intracranial findings. Carotid ultrasound 01/03 with no evidence of stenosis. Also had extensive work up done by Neurology at [facility], discussed in depth with Dr. Villavicencio on previous admission. -Holding patient's lisinopril 2.5mg and metoprolol 12.5, patient cannot tolerate these medications, BP much improved after holding these meds, possible repeat admissions secondary to hypotension while on these meds -Orthostatic blood pressures minimally positive -EEG unremarkable -Fall precautions Left eye pain and blurred vision, imaging as above -Consulted ophthalmology, no injury to the eye, recommended outpatient follow -up for comprehensive eye exam CAD, chronic -Restarted home aspirin, Lipitor HTN with orthostatic hypotension BP improving -Held home lisinopril, metoprolol -IVF, caution with CHF -Monitor vitals, much improved, patient ambulatory without difficulty Chronic pain medications -Pain management with Percocet po -needs to f/up as outpatient for pain medications Nausea, vomiting, abdominal pain -Started Protonix -Lipase wnl, BMP completely normal -Held Lasix -Abdominal xray images reviewed by me, unremarkable -Patient with episode of unwitnessed vomiting, patient would eat his meals however then RN would find liquid in a basin but never seen actively vomiting, ordered a sitter, and no further vomiting was witnessed Malingering: patient has been seen here 5x in the past month, also with extensive work ups done at [facility] within the past 2 months. Multiple providers previously documented suspected malingering, including prior evaluations by myself, neurology, and psychiatry. Patient has repeated cycle of same complaints which include headache, syncope, falls, chest pain, and nausea; although none of this is ever witnessed by staff. Discussed with RN, plan to discharge today if no witnessed vomiting or syncope. Of note, patient stated, " I would just leave if it wasn't so cold out". 01/25 Patient was kept again overnight because case management assistant deemed unsafe discharge as patient claiming he had no where to go last night however he does have somewhere to go today. senior manager has already given the patient 2 bus passes at discharge. DVT prophylaxis: Lovenox I spent 35 minutes [id number] with the patient or on the [place] discussing the patient's disposition, prognosis, and plan of care with his caregivers. Over half the time spent was devoted to counseling the patient regarding placement in coordinating care with caregivers and case management Discharge Planning Discharge after breakfast and morning medications. See discharge summary. 0815hrs: After I had printed all of his prescriptions and the nurse handed these to him, he ripped them up and said "these aren't my right medications". He also threw all of his discharge paperwork in the trash. The patient was ambulating the hallways without any difficulty for at least twenty minutes prior to discharge, awaiting for bus passes. Problem Qualifiers (1) Syncope: Qualified Code: R55 - Syncope, unspecified syncope type (2) Chest pain: Qualified Code: R07.9 - Chest pain, unspecified type (3) COPD (chronic obstructive pulmonary disease): Qualified Code: J43.9 - Pulmonary emphysema, unspecified emphysema type (4) Hypertension: Qualified Code: I10 - Essential hypertension Mellissa Asif PA-C Jan 25, 2017 7:31 am
[2017-01-25] MEDS ORDERED: ASPI81CH CHEW (07:35)
[2017-01-25] MEDS ORDERED: PRAS10TA PO (07:35)
[2017-01-25] MEDS ORDERED: ISOS30TA3 PO (07:35)
[2017-01-25] MEDS ORDERED: FURO20TA PO (07:35)
[2017-01-25] MEDS ORDERED: LIPI80TA PO (07:35)
[2017-01-25] MEDS: PRASUGREL 10 MG TAB PO SCH (07:46)
[2017-01-25] MEDS: GABAPENTIN 300 MG CAP PO SCH (07:46)
[2017-01-25] MEDS: ALPRAZolam 1 MG TAB PO SCH (07:47)
[2017-01-25] MEDS: ASPIRIN 81 MG CHEW TAB CHEW SCH (07:47)
[2017-01-25] MEDS: ATORVASTATIN 80 MG TAB PO SCH (07:47)
[2017-01-25] MEDS: PANTOPRAZOLE SOD 40 MG DELAYED RELEASE TAB PO SCH (07:47)
== END 2017-01-25 09:10 | disposition home or self-care (01) ==
LOC: NEPA 20:29 → NEDA 22:24 → NEPGCP 23:58
PROVIDERS: ADMIT Hospitalist; ATTEND Hospitalist
DX: R55 Syncope and collapse (principal); R07.9 Chest pain, unspecified; J44.9 Chronic obstructive pulmonary disease, unspecified; I10 Essential (primary) hypertension; R11.2 Nausea with vomiting, unspecified; Z76.5 Malingerer [conscious simulation]; I25.10 Atherosclerotic heart disease of native coronary artery without angina pectoris; I11.0 Hypertensive heart disease with heart failure; Z95.1 Presence of aortocoronary bypass graft; H53.8 Other visual disturbances; H57.12 Ocular pain, left eye; G89.29 Other chronic pain; Z79.51 Long term (current) use of inhaled steroids; I25.2 Old myocardial infarction; E78.5 Hyperlipidemia, unspecified; G62.9 Polyneuropathy, unspecified; Z79.01 Long term (current) use of anticoagulants; M19.90 Unspecified osteoarthritis, unspecified site; F32.9 Major depressive disorder, single episode, unspecified; F41.9 Anxiety disorder, unspecified; E78.00 Pure hypercholesterolemia, unspecified; K21.9 Gastro-esophageal reflux disease without esophagitis; K44.9 Diaphragmatic hernia without obstruction or gangrene; Z87.442 Personal history of urinary calculi; G43.909 Migraine, unspecified, not intractable, without status migrainosus; Z95.5 Presence of coronary angioplasty implant and graft; F17.210 Nicotine dependence, cigarettes, uncomplicated; Z88.0 Allergy status to penicillin; Z88.8 Allergy status to other drugs, medicaments and biological substances; Z79.82 Long term (current) use of aspirin; Z79.02 Long term (current) use of antithrombotics/antiplatelets
CPT/HCPCS: 70450; 71010; 71275; 74000; 80048; 80053; 82550; 82552; 83690; 83735; 84484; 85025; 85379; 85610; 85730; 93005; 95819; 97110; 97116; 97162; 97530; 99285; G0378; G8987; G8988; J1650; J2405; J3480; J7030; Q9967

== ENCOUNTER 2017-01-29 17:29 | Emergency (ER) | payer OTHER ==
[~2017-01-29] VITALS: Ht 167.6 cm; Wt 69.1 kg
[~2017-01-29 17:29] MED LIST changes: -LISI-519 PO; -METO25TA3 PO
[2017-01-29 18:07] VITALS: BP 140/82; PULSE 110; RESP 18; TEMP 98.4; O2SAT 96
[2017-01-29] MEDS ORDERED: ASPIRIN 81 MG CHEW TAB PO ONE (19:15)
[2017-01-29] MEDS ORDERED: SODIUM CHLORIDE 0.9% FLUSH 10 ML FLUSH IVF PRN (19:15)
[2017-01-29] MEDS ORDERED: NITROGLYCERIN 0.4 MG SL 25 TABS/BTL SL ONE (19:15)
--- NOTE | 2017-01-29 19:15 | PD ---
HPI Chief Complaint: Syncope/Near-Syncope Time Seen by Provider: 19:10 Travel History International Travel<30 days: No Contact w/Intl Traveler<30days: No Traveled to known affect area: No History of Present Illness HPI The patient is a 61-year-old male with a history of anxiety, depression, coronary artery disease and syncopal spells who states he had a syncopal spell on the way to Dr. Perez's office. He states he never made it to Dr. Perez's office in time and could not get his refills of his medication. His primary concern is his chest pain which is sharp and pleuritic and substernal and has been going on intermittently for 2 hours. The pain lasts for 30 seconds to 1 minute. He says he has diaphoresis, shortness of breath and nausea associated with chest pain. He states it radiates out his left arm. His syncopal spells been going on for 6 months. He states nobody is doing anything about them. He did hit his head today and describes a sudden blackout spell. He also has some neck pain without radiation of pain down his arms. He denies any fever. He denies any vomiting or diarrhea. The patient had a coronary artery bypass graft in 2012 and subsequent stenting this year by Dr. bettencourt. [facility] Past Medical History Hx Anticoagulant Therapy: Yes Arthritis: Yes Asthma: No Autoimmune Disease: No Blood Disorders: No Anxiety: Yes Depression: Yes Heart Rhythm Problems: No Cancer: No Cardiac Catheterization: Yes Cardiovascular Problems: Yes High Cholesterol: Yes Chest Pain: Yes Congestive Heart Failure: No COPD: No Cerebrovascular Accident: No Diabetes: No Diminished Hearing: No Endocrine: No Gastrointestinal Disorders: Yes GERD: Yes Genitourinary: No Hiatal Hernia: Yes Heparin Induced Thrombocytopen: No Hypertension: Yes Immune Disorder: No Implanted Vascular Access Dvce: Yes Kidney Stones: Yes Musculoskeletal: No Neurologic: Yes (SYNCOPE EPISODES) Psychiatric: Yes Reproductive: No Respiratory: No Immunizations Current: Yes Migraines: Yes Myocardial Infarction: Yes Seizures: No Sickle Cell Disease: No Sleep Apnea: No Thyroid Disease: No Ulcer: No Past Surgical History Abdominal Surgery: No Body Medical Devices: STENTS Cardiac Surgery: Yes ( double cabg 2012 for stents) Coronary Artery Bypass Graft: Yes Ear Surgery: No Endocrine Surgery: No Eye Surgery: No Genitourinary Surgery: No Gynecologic Surgery: No Neurologic Surgery: No Oral Surgery: No Thoracic Surgery: Yes (HX of CABG x 2) Other Surgery: Yes (CABG, STENTING) Family History Family Myocardial Infarction: Yes Social History Alcohol Use: No (PT DENIES) Tobacco Use: Yes (5 cigs per day) Substance Use: No (pt denies) Allergies-Medications (Allergen,Severity, Reaction): Coded Allergies: Penicillin (Verified Allergy, Unknown, Hives, 01/29/17) Toradol (Verified Allergy, Unknown, 01/29/17) Reported Meds & Prescriptions Reported Meds & Active Scripts Active Isosorbide Mononitrate ER (Isosorbide Mononitrate) 30 Mg Ronny 15 Mg PO DAILY@07 Furosemide 20 Mg Tab 20 Mg PO DAILY Effient (Prasugrel) 10 Mg Tab 10 Mg PO DAILY Lipitor (Atorvastatin Calcium) 80 Mg Tab 80 Mg PO DAILY Aspirin 81 Mg Chew 81 Mg CHEW DAILY Oxycodone-Acetaminophen 10-325 mg Tab 1 Tab PO Q6H PRN Fluticasone Nasal [place] 50 Mcg/Act Naspr 1 [place] NASAL BID Ventolin Hfa 18 GM Inh (Albuterol Sulfate) 90 Mcg/Act Aer 2 Puff INH Q4-6H PRN Nitroglycerin SL (Nitroglycerin) 0.3 Mg Subl 0.3 Mg SL DIRECTED PRN ONE TABLET UNDER THE TONGUE NEEDED FOR CHEST PAIN, MAY REPEAT EVERY FIVE MINUTES FOR A TOTAL OF 3 DOSES OR CALL 911 IF NO RELIEF. Protonix (Pantoprazole Sodium) 40 Mg Tab 40 Mg PO DAILY Reported Gabapentin 600 Mg Tab 600 Mg PO TID Alprazolam 1 Mg Tab 1 Mg PO BID Review of Systems Except as stated in HPI: all other systems reviewed are Neg Physical Exam Narrative GENERAL: The patient is alert, oriented 3, frequently cursing about his problems and slight apparent distress. His heart rate is 110. The rest of his vital signs are normal. SKIN: Warm and dry. HEAD: Atraumatic. Normocephalic. EYES: Pupils equal and round. No scleral icterus. No injection or drainage. ENT: No nasal bleeding or discharge. Mucous membranes pink and moist. NECK: Trachea midline. No JVD. CARDIOVASCULAR: Regular rate and rhythm. No murmur appreciated. RESPIRATORY: No accessory muscle use. Clear to auscultation. Breath sounds equal bilaterally. I can only partially reproduce the patient's pain by pressing on the chest wall. GASTROINTESTINAL: Abdomen soft, non-tender, nondistended. Hepatic and splenic margins not palpable. MUSCULOSKELETAL: No obvious deformities. No clubbing. No cyanosis. No edema. NEUROLOGICAL: Awake and alert. No obvious cranial nerve deficits. Motor grossly within normal limits. Normal speech. PSYCHIATRIC: Appropriate mood and affect; insight and judgment normal. Data Data Last Documented VS Vital Signs Date Time Temp Pulse Resp B/P Pulse Ox O2 Delivery O2 Flow Rate FiO2 01/29/17 20:34 83 16 117/77 96 Nasal Cannula 2 01/29/17 18:07 98.4 Orders Electrocardiogram (01/29/17 18:28) Ckmb (Isoenzyme) Profile (01/29/17 19:11) Complete Blood Count With Diff (01/29/17 19:11) Comprehensive Metabolic Panel (01/29/17 19:11) Magnesium (Mg) (01/29/17 19:11) Troponin I (01/29/17 19:11) Ecg Monitoring (01/29/17 19:11) Iv Access Insert/Monitor (01/29/17 19:11) Oximetry (01/29/17 19:11) Oxygen Administration (01/29/17 19:11) Aspirin Chew (Aspirin Chew) (01/29/17 19:15) Sodium Chloride 0.9% Flush (Ns Flush) (01/29/17 19:15) Nitroglycerin Sl (Nitrostat Sl) (01/29/17 19:15) Chest, Pa & Lat (01/29/17 19:11) Ct Brain W/O Iv Contrast(Rout) (01/29/17 19:11) Ct Cerv Spine W/O Contrast (01/29/17 19:11) CKMB (01/29/17 20:17) CKMB% (01/29/17 20:17) Labs Laboratory Tests Test 01/29/17 20:17 Sodium Level 138 MEQ/L Potassium Level 4.1 MEQ/L Chloride Level 103 MEQ/L Carbon Dioxide Level 24.1 MEQ/L Anion Gap 11 MEQ/L Blood Urea Nitrogen 28 MG/DL Creatinine 1.10 MG/DL Estimat Glomerular Filtration 68 ML/MIN Rate Random Glucose 106 MG/DL Calcium Level 8.6 MG/DL Magnesium Level 2.4 MG/DL Total Bilirubin 0.4 MG/DL Aspartate Amino Transf 20 U/L (AST/SGOT) Alanine Aminotransferase 20 U/L (ALT/SGPT) Alkaline Phosphatase 83 U/L Total Creatine Kinase 111 U/L Troponin I LESS THAN 0.02 NG/ML Total Protein 7.6 GM/DL Albumin 3.6 GM/DL MDM Medical Decision Making Medical Screen Exam Complete: Yes Emergency Medical Condition: Yes Medical Record Reviewed: Yes Interpretation(s) The EKG shows a sinus rhythm with a rate of [address] elevation or depression is present. There is no significant change from a previous EKG done on the of this month. The complete metabolic profile is normal. The troponin I is normal. The chest x-ray shows no acute cardiopulmonary disease. Differential Diagnosis Anxiety/hyperventilation, cardiac syncope, intracranial bleed, cervical spine fracture, forehead contusion, cervical strain, acute coronary syndrome, unstable angina, electrolyte disorder, substance abuse, malingering, adjustment disorder, atypical chest pain Narrative Course Shortly after I saw the patient the patient wanted to leave AGAINST MEDICAL ADVICE. He then changed his mind. He told the nurse that the doctor told him he could leave and that is absolutely incorrect. The patient appears to be attention seeking. Diagnosis Primary Impression: Atypical chest pain Additional Impression: Adjustment disorder with mixed anxiety and depressed mood Disposition: 01 DISCHARGE HOME Condition: Stable Miguel A Sanchez MD Jan 29, 2017 19:15
--- NOTE | 2017-01-29 19:59 | RADHPO ---
EXAM DATE/TIME: 01/29/2017 19:30 [facility] COMPARISON: CHEST SINGLE AP, January 21, 2017, 20:59. INDICATIONS : Chest pain and blacking out. MEDICAL HISTORY : Myocardial infarction. SURGICAL HISTORY : CABG. Cardiac stents ENCOUNTER: Initial ACUITY: 1 day PAIN SCORE: 8/10 LOCATION: Bilateral chest FINDINGS: The lungs are clear without infiltrate, nodule, or mass. There is no appreciable pleural effusion fo r technique. Heart and mediastinum are unremarkable. There is evidence for prior median sternotomy. CONCLUSION: No acute cardiopulmonary disease. Raquel Duron MD on January 29, 2017 at 19:58 Board Certified Radiologist. This report was verified electronically.
[2017-01-29 20:22] LABS: AUTOMATED NEUTROPHIL # 8.4 TH/MM3 (1.8-7.7); BASOPHIL # 0.3 TH/MM3 (0-0.2); BASOPHIL % 2.5 % (0.0-2.0); EOSINOPHIL # 0.1 TH/MM3 (0-0.4); EOSINOPHIL % 1.1 % (0.0-4.0); HEMATOCRIT 40.7 % (39.0-51.0); LYMPHOCYTE # 2.1 TH/MM3 (1.0-4.8); MEAN CELL VOLUME 83.3 FL (80.0-100.0); MEAN CORPUSCULAR HGB CONC 32.4 % (32.0-36.0); MONO % 6.8 % (0.0-8.0); NEUT % 71.6 % (16.0-70.0); PLATELET COUNT 223 TH/MM3 (150-450); RED BLOOD COUNT 4.88 MIL/MM3 (4.50-5.90); RED CELL DISTRIBUTION WIDTH 15.8 % (11.6-17.2); WHITE BLOOD COUNT 11.7 TH/MM3 (4.0-11.0)
[2017-01-29 20:32] LABS: CHLORIDE 103 MEQ/L (98-107); POTASSIUM 4.1 MEQ/L (3.5-5.1); SODIUM (NA) 138 MEQ/L (136-145)
[2017-01-29 20:34] VITALS: BP 117/77; PULSE 83; RESP 16; O2SAT 96
[2017-01-29 20:37] LABS: ANION GAP 11 MEQ/L (5-15); BICARBONATE 24.1 MEQ/L (21.0-32.0); BLOOD UREA NITROGEN 28 MG/DL (7-18); MAGNESIUM 2.4 MG/DL (1.5-2.5)
[2017-01-29 20:39] LABS: ALT (GPT) 20 U/L (12-78); AST (GOT) 20 U/L (15-37)
[2017-01-29 20:40] LABS: GLOMERULAR FILTRATION RATE 68 ML/MIN (>89)
[2017-01-29 20:41] LABS: CREATINE KINASE 111 U/L (39-308)
[2017-01-29 20:42] LABS: ALKALINE PHOSPHATASE 83 U/L (45-117)
[2017-01-29 20:43] LABS: TOTAL BILIRUBIN ADULT 0.4 MG/DL (0.2-1.0)
[2017-01-29 21:02] LABS: CKMB 2.1 NG/ML (0.5-3.6)
--- NOTE | 2017-01-29 21:30 | RADHPO ---
EXAM DATE/TIME: 01/29/2017 20:16 [facility] COMPARISON: No previous studies available for comparison. INDICATIONS : Trauma. Fall. Near Syncope. RADIATION DOSE: 26.50 CTDIvol (mGy) MEDICAL HISTORY : Cardiovascular disease. Chronic obstructive pulmonary disease. SURGICAL HISTORY : CABG ENCOUNTER: Initial ACUITY: 1 day PAIN SCALE: 8/10 LOCATION: Bilateral neck TECHNIQUE: Volumetric scanning of the cervical spine was performed. Multiplanar reconstructions in the sagittal, coronal and oblique axial planes were performed. Using automated exposure control and adjustment o f the mA and/or kV according to patient size, radiation dose was kept as low as reasonably achievable to obtain optimal diagnostic quality images. FINDINGS: No evidence of subluxation. No definite fracture is seen for technique. C2-C3: There is no evidence for any significant compromise to the thecal sac, or the exiting nerve roots. N o appreciable thecal sac stenosis is seen. The neural foramina and lateral recess appear patent bila terally. C3-C4: There is no evidence for any significant compromise to the thecal sac, or the exiting nerve roots. N o appreciable thecal sac stenosis is seen. The neural foramina and lateral recess appear patent bila terally. C4-C5: Slight degenerative changes are seen within the disc space and facets. There is slight neural foramin a compromise on the left due to asymmetrical bulging disc and hypertrophic changes. Slight bulging di sc and hypertrophic changes are seen with indentation on the thecal sac and no significant compromise to the thecal sac. C5-C6: Moderate degenerative changes are seen within the disc space and facets. Slight bulging disc and hype rtrophic changes are seen with indentation on the thecal sac and no significant compromise to the the theresa sac or the exiting nerve roots. C6-C7: Slight bulging disc and hypertrophic changes are seen with indentation on the thecal sac and no signi ficant compromise to the thecal sac or the exiting nerve roots. Slight degenerative changes are seen within the disc space and facets. C7-T1: Moderate degenerative changes are seen within the disc space and facets. Slight bulging disc and hype rtrophic changes are seen with indentation on the thecal sac and no significant compromise to the the theresa sac or the exiting nerve roots. CONCLUSION: Slight neural foramina compromise left C4-5. Raquel Duron MD on January 29, 2017 at 21:26 Board Certified Radiologist. This report was verified electronically.
--- NOTE | 2017-01-29 21:32 | RADHPO ---
EXAM DATE/TIME: 01/29/2017 20:16 [facility] COMPARISON: CT BRAIN W/O CONTRAST, January 22, 2017, 7:31. INDICATIONS : Trauma. Fall. Near Syncope. RADIATION DOSE: 62.55 CTDIvol (mGy) Dose Comments: MEDICAL HISTORY : Cardiovascular disease. Chronic obstructive pulmonary disease. SURGICAL HISTORY : CABG ENCOUNTER: Initial ACUITY: 1 day PAIN SCALE: 8/10 LOCATION: Right frontal TECHNIQUE: Multiple contiguous axial images were obtained of the head. Using automated exposure control and adj ustment of the mA and/or kV according to patient size, radiation dose was kept as low as reasonably a chievable to obtain optimal diagnostic quality images. FINDINGS: There is no evidence for intracranial hemorrhage, mass effect, mass lesions, edema, or extra-axial fl uid collections. The visualized bony structures appear intact. The ventricles are normal size for t he patient's age. There are no signs of acute infarction for technique. Old nasal fractures are agai n seen. CONCLUSION: Unremarkable study except for old nasal bone fractures. Raquel Duron MD on January 29, 2017 at 21:29 Board Certified Radiologist. This report was verified electronically.
[2017-01-29 21:33] LABS: HEMO FLAGS DIFF FINAL
[2017-01-29 22:04] VITALS: BP 114/68
--- NOTE | 2017-01-30 10:09 | EKG ---
Date Performed: 01/29/2017 Time Performed: 18:28:38 PTAGE: 61 years EKG: Sinus rhythm Septal T wave changes are nonspecific Borderline ECG PREVIOUS TRACING : 01/22/2017 08.10 DOCTOR: Calvin Ivey Interpretating Date/Time 01/30/2017 10:08:34
== END 2017-01-29 22:10 | disposition home or self-care (01) ==
LOC: PHED 17:29
DX: R07.89 Other chest pain (principal); F43.23 Adjustment disorder with mixed anxiety and depressed mood; I25.2 Old myocardial infarction; I10 Essential (primary) hypertension; E78.00 Pure hypercholesterolemia, unspecified; F41.8 Other specified anxiety disorders; Z79.01 Long term (current) use of anticoagulants; Z95.1 Presence of aortocoronary bypass graft; Z87.442 Personal history of urinary calculi; Z72.0 Tobacco use
CPT/HCPCS: 70450; 71020; 72125; 80053; 82550; 82552; 83735; 84484; 85025; 93005

== ENCOUNTER 2017-01-30 17:22 | Inpatient (IN) | payer OTHER ==
[~2017-01-30] VITALS: Ht 167.6 cm; Wt 69.1 kg
[2017-01-30 17:32] VITALS: BP 143/88; PULSE 98; RESP 23; TEMP 99.2
--- NOTE | 2017-01-30 17:43 | PD ---
HPI Chief Complaint: Fall Time Seen by Provider: 17:34 Travel History International Travel<30 days: No Contact w/Intl Traveler<30days: No Traveled to known affect area: No History of Present Illness HPI Patient is a 61-year-old male with history of coronary disease, CABG, CHF with an EF of 40-45%, hypertension, hyperlipidemia, presents to emergency room with EMS after syncopal episode. Patient reports that he did not remember the events of today, reports that he fell sometime today and ended up going to the Fire Station. As per EMS, patient showed up at the fire station today, reports that they told him that he fell today and had chest pain. EMS reports the patient appeared altered, patient unable to provide an history of present illness at this time. Patient is only alert to person, cannot provide history of present illness. Patient is confused and thinks that he has at the fire station at this time. I did review prior records as patient has been admitted to this hospital multiple times. Patient was seen in emergency room yesterday on 01/29/17 for a syncopal episode. As per records, patient had a syncopal episode on the way to his plastic tool maker's office, reports that his plastic tool maker is Dr. Perez. Patient did have intermittent chest pain yesterday, he did have history of coronary bypass graft [place] [address] Bill Ivey. After workup, patient was discharged home with diagnosis of atypical chest pain and adjustment disorder with mixed anxiety and depressed mood. PFSH Past Medical History Hx Anticoagulant Therapy: Yes Arthritis: Yes Asthma: No Autoimmune Disease: No Blood Disorders: No Anxiety: Yes Depression: Yes Heart Rhythm Problems: No Cancer: No Cardiac Catheterization: Yes Cardiovascular Problems: Yes High Cholesterol: Yes Chest Pain: Yes Congestive Heart Failure: No COPD: No Cerebrovascular Accident: No Diabetes: No Diminished Hearing: No Endocrine: No Gastrointestinal Disorders: Yes GERD: Yes Genitourinary: No Hiatal Hernia: Yes Heparin Induced Thrombocytopen: No Hypertension: Yes Immune Disorder: No Implanted Vascular Access Dvce: Yes Kidney Stones: Yes Musculoskeletal: No Neurologic: Yes (SYNCOPE EPISODES) Psychiatric: Yes Reproductive: No Respiratory: No Immunizations Current: Yes Migraines: Yes Myocardial Infarction: Yes Seizures: No Sickle Cell Disease: No Sleep Apnea: No Thyroid Disease: No Ulcer: No Past Surgical History Abdominal Surgery: No Body Medical Devices: STENTS Cardiac Surgery: Yes ( double cabg 2012 for stents) Coronary Artery Bypass Graft: Yes Ear Surgery: No Endocrine Surgery: No Eye Surgery: No Genitourinary Surgery: No Gynecologic Surgery: No Neurologic Surgery: No Oral Surgery: No Thoracic Surgery: Yes (HX of CABG x 2) Other Surgery: Yes (CABG, STENTING) Social History Alcohol Use: No (PT DENIES) Tobacco Use: Yes (5 cigs per day) Substance Use: No (pt denies) Allergies-Medications (Allergen,Severity, Reaction): Coded Allergies: Penicillin (Verified Allergy, Unknown, Hives, 01/29/17) Toradol (Verified Allergy, Unknown, 01/29/17) Reported Meds & Prescriptions Reported Meds & Active Scripts Active Isosorbide Mononitrate ER (Isosorbide Mononitrate) 30 Mg Ronny 15 Mg PO DAILY@07 Furosemide 20 Mg Tab 20 Mg PO DAILY Effient (Prasugrel) 10 Mg Tab 10 Mg PO DAILY Lipitor (Atorvastatin Calcium) 80 Mg Tab 80 Mg PO DAILY Aspirin 81 Mg Chew 81 Mg CHEW DAILY Oxycodone-Acetaminophen 10-325 mg Tab 1 Tab PO Q6H PRN Fluticasone Nasal [place] 50 Mcg/Act Naspr 1 [place] NASAL BID Ventolin Hfa 18 GM Inh (Albuterol Sulfate) 90 Mcg/Act Aer 2 Puff INH Q4-6H PRN Nitroglycerin SL (Nitroglycerin) 0.3 Mg Subl 0.3 Mg SL DIRECTED PRN ONE TABLET UNDER THE TONGUE NEEDED FOR CHEST PAIN, MAY REPEAT EVERY FIVE MINUTES FOR A TOTAL OF 3 DOSES OR CALL 911 IF NO RELIEF. Protonix (Pantoprazole Sodium) 40 Mg Tab 40 Mg PO DAILY Reported Gabapentin 600 Mg Tab 600 Mg PO TID Alprazolam 1 Mg Tab 1 Mg PO BID Review of Systems ROS Limitations: Altered Mental Status Cardiovascular: Positive: Chest Pain or Discomfort Physical Exam Exam Limitations: Altered Mental Status, Poor Historian Narrative GENERAL: Patient in moderate distress SKIN: Warm and dry. HEAD: Normocephalic. Patient with forehead scalp abrasion EYES: Pupils equal and round. No scleral icterus. No injection or drainage. ENT: No nasal bleeding or discharge. Mucous membranes pink and moist. NECK: Trachea midline. No JVD. CARDIOVASCULAR: Regular rate and rhythm. No murmur appreciated. RESPIRATORY: No accessory muscle use. Clear to auscultation. Breath sounds equal bilaterally. GASTROINTESTINAL: Abdomen soft, non-tender, nondistended. Hepatic and splenic margins not palpable. MUSCULOSKELETAL: No obvious deformities. No clubbing. No cyanosis. No edema. NEUROLOGICAL: Patient only alert to person, patient with no obvious cranial nerve deficits, patient has overall general weakness to all EXTREMITIES PSYCHIATRIC: Patient anxious on exam Data Data Last Documented VS Vital Signs Date Time Temp Pulse Resp B/P Pulse Ox O2 Delivery O2 Flow Rate FiO2 01/30/17 17:32 99.2 98 23 143/[address] Brain W/O Iv Contrast(Rout) (01/30/17 17:30) Ct Cerv Spine W/O Contrast (01/30/17 17:30) Prothrombin Time / Inr (Pt) (01/30/17:31) Act Partial Throm Time (Ptt) (01/30/17 17:31) Complete Blood Count With Diff (01/30/17 17:31) Comprehensive Metabolic Panel (01/30/17 17:31) Creatine Kinase (Cpk) (01/30/17 17:31) Drug Screen, Random Urine (01/30/17 17:31) Troponin I (01/30/17 17:31) Urinalysis - C+S If Indicated (01/30/17 17:31) Chest, Single Ap (01/30/17 17:31) Ecg Monitoring (01/30/17 17:31) Iv Access Insert/Monitor (01/30/17 17:31) Oximetry (01/30/17 17:31) Sodium Chloride 0.9% Flush (Ns Flush) (01/30/17 17:45) Alcohol (Ethanol) (01/30/17 17:31) Salicylates (Aspirin) (01/30/17 17:31) Tylenol (Acetaminophen) (01/30/17 17:31) Tetanus/Diphtheria Tox Adult (Tetanus/Di (01/30/17 17:45) Sodium Chlor 0.9% 1000 Ml Inj (Ns 1000 M (01/30/17 17:45) Lactic Acid Sepsis Protocol (01/30/17 17:44) Influenzae A/B Antigen (01/30/17 17:44) Blood Culture (01/30/17 17:44) Troponin I (01/30/17 20:20) Electrocardiogram (01/30/17 17:27) Psych Screen (01/30/17 22:50) Labs Laboratory Tests Test 01/30/17 01/30/17 18:20 21:28 White Blood Count 10.6 TH/MM3 Red Blood Count 5.09 MIL/MM3 Hemoglobin 13.9 GM/DL Hematocrit 41.9 % Mean Corpuscular Volume 82.3 FL Mean Corpuscular Hemoglobin 27.4 PG Mean Corpuscular Hemoglobin 33.2 % Concent Red Cell Distribution Width 16.3 % Platelet Count 284 TH/MM3 Mean Platelet Volume 8.8 FL Neutrophils (%) (Auto) 84.1 % Lymphocytes (%) (Auto) 11.9 % Monocytes (%) (Auto) 3.1 % Eosinophils (%) (Auto) 0.2 % Basophils (%) (Auto) 0.7 % Neutrophils # (Auto) 8.9 TH/MM3 Lymphocytes # (Auto) 1.3 TH/MM3 Monocytes # (Auto) 0.3 TH/MM3 Eosinophils # (Auto) 0.0 TH/MM3 Basophils # (Auto) 0.1 TH/MM3 CBC Comment DIFF FINAL Differential Comment Prothrombin Time 10.7 SEC Prothromb Time International 1.0 RATIO Ratio Activated Partial 26.4 SEC Thromboplast Time Sodium Level 137 MEQ/L Potassium Level 3.9 MEQ/L Chloride Level 102 MEQ/L Carbon Dioxide Level 26.2 MEQ/L Anion Gap 9 MEQ/L Blood Urea Nitrogen 28 MG/DL Creatinine 1.26 MG/DL Estimat Glomerular Filtration 58 ML/MIN Rate Random Glucose 129 MG/DL Calcium Level 9.0 MG/DL Total Bilirubin 0.7 MG/DL Aspartate Amino Transf 18 U/L (AST/SGOT) Alanine Aminotransferase 21 U/L (ALT/SGPT) Alkaline Phosphatase 91 U/L Total Creatine Kinase 134 U/L Troponin I LESS THAN 0.02 LESS THAN 0.02 NG/ML NG/ML Total Protein 8.9 GM/DL Albumin 4.3 GM/DL Salicylates Level 3.8 MG/DL Acetaminophen Level LESS THAN 2.0 MCG/ML Ethyl Alcohol Level LESS THAN 3 MG/DL Lactic Acid Level 0.8 mmol/L MDM Medical Decision Making Medical Screen Exam Complete: Yes Emergency Medical Condition: Yes Interpretation(s) EKG at 1727: Normal sinus rhythm at 99 bpm, QT/QTC 369/425, no acute ST or T- wave changes Vital Signs Date Time Temp Pulse Resp B/P Pulse Ox O2 Delivery O2 Flow Rate FiO2 01/30/17 17:32 99.2 98 23 143/88 Differential Diagnosis Intracranial hemorrhage, CVA, arrhythmia, ACS, electrolyte abnormality, pneumonia, CHF exacerbation Narrative Course Patient is a 61-year-old male who presents to emergency room by EMS for evaluation of altered mental status. As per EMS, patient arrived at the [facility] after he fell onto the floor. The patient was confused upon presentation to the emergency room. Blood sugar was evaluated, it was normal. Reports that patient did again complaining of chest pain. Reports that he could not remember the events of his fall, reports that he appeared altered overall. Patient does appear altered while in the emergency room, patient only was alert to person at this time. Patient with no chest pain at this time. Given his significant only complaints of chest pain, an EKG was obtained. Labs as well as CAT scan of the head and neck ordered as patient did have a fall today given his abrasions. Patient was placed on a quality assurance monitor, plan to monitor patient. Patient was given 162 mg of aspirin by EMS prior to arrival to ER as he did complain of chest pain. Tox screens ordered as well as blood cultures. CBC & BMP Diagram 01/30/17 18:20 Last Impressions Chest X-Ray 01/30/171730 Signed Impressions: Service Date/Time: Monday, January 30, 2017 18:00 - CONCLUSION: No acute cardiopulmonary disease. Raquel Duron MD Head CT [id number]/30/[id number] Signed Impressions: Service Date/Time: Monday, January 30, 2017 17:39 - CONCLUSION: Normal examination. Cr Meza MD Cervical Spine CT [id number]/30/[id number] Signed Impressions: Service Date/Time: Monday, January 30, 2017 17:39 - CONCLUSION: Degenerative changes. No evidence of acute bony injury in the cervical spine Cr Meza MD Patient was refusing further workup, I discussed with patient that if he refuses further workup, he will have to leave against medical advice. Patient now unable to obtain second set of troponin. Patient refusing repeat ekg, I did review all labs and all studies with patient in detail. I discussed the patient will be discharged home if all lab work is normal as you'll need to follow-up with his plastic tool maker as well as his neurologist and primary care doctor. Patient did get very angry with this and screamed "if you send me home, I'm going to walk in front of a car and kill myself." Will place boone act on patient - he will need to be seen by psych once I have medically cleared him. I have read patient's previous discharge summary, patient did appear to be malingering and he had similar complaints as well as refused to be discharged to home on last admission, I do believe that patient is malingering at this time. Given his statement, patient will need to be seen in cleared by psych before discharged Diagnosis Primary Impression: Syncope and collapse Additional Impressions: Chest pain Qualified Code: R07.9 - Chest pain, unspecified type Suicidal ideation Admitting Information Admitting Physician Requests: Observation Additional Instructions: Please follow-up with the primary care doctor as well as your plastic tool maker first thing in the morning Return to the emergency room as needed Return to emergency room if symptoms return Naida Pritchett DO Jan 30, 2017 17:43
[2017-01-30] MEDS ORDERED: SODIUM CHLOR 0.9% 1000 ML INJ 1,000 ML IV ONE (17:45)
[2017-01-30] MEDS ORDERED: TETANUS/DIPHTHERIA TOXOID ADULT 0.5 ML VIAL IM ONE (17:45)
[2017-01-30] MEDS ORDERED: SODIUM CHLORIDE 0.9% FLUSH 10 ML FLUSH IVF PRN (17:45)
--- NOTE | 2017-01-30 17:53 | RADRPT ---
EXAM DATE/TIME: 01/30/2017 17:39 [facility] COMPARISON: CT BRAIN W/O CONTRAST, January 29, 2017, 20:16. CT CERVICAL SPINE W/O CONTRAST, January 29, 2017, 20:16. INDICATIONS : Syncopal episodes. Laceration to forehead. RADIATION DOSE: 41..11 CTDIvol (mGy) MEDICAL HISTORY : Cardiovascular disease. Hypertension. SURGICAL HISTORY : None. ENCOUNTER: Initial ACUITY: 1 day PAIN SCALE: 0/10 LOCATION: cranial TECHNIQUE: Multiple contiguous axial images were obtained of the head. Using automated exposure control and adj ustment of the mA and/or kV according to patient size, radiation dose was kept as low as reasonably a chievable to obtain optimal diagnostic quality images. FINDINGS: CEREBRUM: The ventricles are normal for age. No evidence of midline shift, mass lesion, hemorrhage or acute in farction. No extra-axial fluid collections are seen. POSTERIOR FOSSA: The cerebellum and brainstem are intact. The 4th ventricle is midline. The cerebellopontine angle i s unremarkable. EXTRACRANIAL: The visualized portion of the orbits is intact. SKULL: The calvaria is intact. No evidence of skull fracture. CONCLUSION: Normal examination. Cr Meza MD on January 30, 2017 at 17:50 Board Certified Radiologist. This report was verified electronically.
--- NOTE | 2017-01-30 17:58 | RADRPT ---
EXAM DATE/TIME: 01/30/2017 17:39 [facility] COMPARISON: No previous studies available for comparison. INDICATIONS : Syncopal episodes with fall. RADIATION DOSE: 42.99 CTDIvol (mGy) MEDICAL HISTORY : Cardiovascular disease. Hypertension. SURGICAL HISTORY : None. ENCOUNTER: Initial ACUITY: 1 day PAIN SCALE: 0/10 LOCATION: neck TECHNIQUE: Volumetric scanning of the cervical spine was performed. Multiplanar reconstructions in the sagittal, coronal and oblique axial planes were performed. Using automated exposure control and adjustment o f the mA and/or kV according to patient size, radiation dose was kept as low as reasonably achievable to obtain optimal diagnostic quality images. FINDINGS: The cervical spine alignment is satisfactory. There is no evidence of fracture. Degenerative changes are present throughout with disc space narrowing most notably at the C5-6 and C7-T1 levels and small endplate osteophytes at multiple levels. Moderate posterior facet arthropathy is present at multiple levels. There is no significant bony canal or foraminal compromise. No paraspinal hematoma is present . CONCLUSION: Degenerative changes. No evidence of acute bony injury in the cervical spine Cr Meza MD on January 30, 2017 at 17:55 Board Certified Radiologist. This report was verified electronically.
--- NOTE | 2017-01-30 18:14 | RADRPT ---
EXAM DATE/TIME: 01/30/2017 18:00 [facility] COMPARISON: CHEST PA & LAT, January 29, 2017, 19:30. INDICATIONS : Chest pain and blacking out. MEDICAL HISTORY : Myocardial infarction. SURGICAL HISTORY : CABG. Cardiac stents ENCOUNTER: Initial ACUITY: 2 days PAIN SCORE: Non-responsive. LOCATION: Bilateral chest FINDINGS: The lungs are clear without infiltrate, nodule, or mass. There is no appreciable pleural effusion fo r technique. Heart and mediastinum are unremarkable. There is evidence for prior median sternotomy. CONCLUSION: No acute cardiopulmonary disease. Raquel Duron MD on January 30, 2017 at 18:12 Board Certified Radiologist. This report was verified electronically.
[2017-01-30 18:35] LABS: AUTOMATED NEUTROPHIL # 8.9 TH/MM3 (1.8-7.7); BASOPHIL # 0.1 TH/MM3 (0-0.2); BASOPHIL % 0.7 % (0.0-2.0); EOSINOPHIL % 0.2 % (0.0-4.0); HEMATOCRIT 41.9 % (39.0-51.0); HEMO FLAGS DIFF FINAL; LYMPH % 11.9 % (9.0-44.0); LYMPHOCYTE # 1.3 TH/MM3 (1.0-4.8); MEAN CELL VOLUME 82.3 FL (80.0-100.0); MEAN CORPUSCULAR HEMOGLOBIN 27.4 PG (27.0-34.0); MEAN CORPUSCULAR HGB CONC 33.2 % (32.0-36.0); MONO % 3.1 % (0.0-8.0); NEUT % 84.1 % (16.0-70.0); PLATELET COUNT 284 TH/MM3 (150-450); RED BLOOD COUNT 5.09 MIL/MM3 (4.50-5.90); RED CELL DISTRIBUTION WIDTH 16.3 % (11.6-17.2); WHITE BLOOD COUNT 10.6 TH/MM3 (4.0-11.0)
[2017-01-30 18:41] LABS: ANION GAP 9 MEQ/L (5-15); AST (GOT) 18 U/L (15-37); BICARBONATE 26.2 MEQ/L (21.0-32.0); BLOOD UREA NITROGEN 28 MG/DL (7-18); CHLORIDE 102 MEQ/L (98-107); GLOMERULAR FILTRATION RATE 58 ML/MIN (>89); POTASSIUM 3.9 MEQ/L (3.5-5.1); SODIUM (NA) 137 MEQ/L (136-145)
[2017-01-30 18:43] LABS: APTT (PATIENT) 26.4 SEC (24.3-30.1); PROTHROMBIN TIME - PATIENT 10.7 SEC (9.8-11.6)
[2017-01-30 18:46] LABS: ALKALINE PHOSPHATASE 91 U/L (45-117); ALT (GPT) 21 U/L (12-78); CREATINE KINASE 134 U/L (39-308); TOTAL BILIRUBIN ADULT 0.7 MG/DL (0.2-1.0)
[2017-01-30 18:48] LABS: ACETAMINOPHEN LESS THAN 2.0 MCG/ML (10.0-30.0)
[2017-01-31 02:01] VITALS: BP 139/55; PULSE 80; RESP 19; O2SAT 97
[2017-01-31 04:50] VITALS: O2SAT 97
[2017-01-31 06:35] VITALS: BP 135/71; PULSE 65; RESP 18; TEMP 97.5; O2SAT 97
[2017-01-31 11:23] VITALS: BP 138/71; PULSE 75; RESP 18; O2SAT 97
[2017-01-31 11:38] LABS: BLOOD, URINE NEG (NEG); COMMENT (UR) CATH-CULT NOT IND; CULTURE IF INDICATED CATH CULTURE NOT IND; GLUCOSE,URINE NEG (NEG); KETONE, URINE 10 mg/dL (NEG); MUCUS URINE FEW /lpf (OCC); NITRITE,URINE NEG (NEG); PH, URINE 6.5 (5.0-8.5); URINE COLOR YELLOW (YELLW/STRAW)
[2017-01-31 11:42] LABS: AMPHETAMINE, URINE NEG (NEG); BARBITURATES, URINE NEG (NEG); COCAINE, URINE NEG (NEG)
[2017-01-31] MEDS: ACETAMINOPHEN 500 MG CPLT PO PRN (11:52)
--- NOTE | 2017-01-31 12:56 | PD ---
History of Present Illness Chief Complaint: Fall Time Seen by Provider: 12:45 Travel History International Travel<30 Days: No Contact w/Intl Traveler<30days: No Known affected area: No Legal Status Legal Status: Araujo Act Araujo Act Signed By: JULIANE LEYVA DO 01/30/17 10:00 PM [employer]. [facility]. History of Present Illness: 61-year-old male with a documented history of congestive heart failure and repeated episodes of syncope with unknown etiology. Patient has been homeless for the last several weeks. He denies any alcohol or substance abuse. He has been Araujo acted by the emergency room physician for making suicidal threats. Upon interview, the patient maintains that he wants to because he is tired of living. PFSH Past Medical History Hx Anticoagulant Therapy: Yes Arthritis: Yes Asthma: No Autoimmune Disease: No Blood Disorders: No Anxiety: Yes Depression: Yes Heart Rhythm Problems: No Cancer: No Cardiac Catheterization: Yes Cardiovascular Problems: Yes High Cholesterol: Yes Chest Pain: Yes Congestive Heart Failure: No COPD: No Cerebrovascular Accident: No Diabetes: No Diminished Hearing: No Endocrine: No Gastrointestinal Disorders: Yes GERD: Yes Genitourinary: No Hiatal Hernia: Yes Heparin Induced Thrombocytopen: No Hypertension: Yes Immune Disorder: No Implanted Vascular Access Dvce: Yes Kidney Stones: Yes Musculoskeletal: No Neurologic: Yes (multiple episodes of syncope) Psychiatric: Yes Reproductive: No Respiratory: No Immunizations Current: Yes Migraines: Yes Myocardial Infarction: Yes Seizures: No Sickle Cell Disease: No Sleep Apnea: No Thyroid Disease: No Ulcer: No Past Surgical History Abdominal Surgery: No Body Medical Devices: STENTS Cardiac Surgery: Yes ( double cabg 2012 for stents) Coronary Artery Bypass Graft: Yes Ear Surgery: No Endocrine Surgery: No Eye Surgery: No Genitourinary Surgery: No Gynecologic Surgery: No Neurologic Surgery: No Oral Surgery: No Thoracic Surgery: Yes (HX of CABG x 2) Other Surgery: Yes (CABG, STENTING) Psychiatric History Psychiatric History Hx Psychiatric Treatment: PATIENT WAS LAST ADMITTED TO [facility] FROM 10/24/16 TO 10/25/16 FOR DEPRESSION. History of Inpatient Treatment: Yes Social History Hx Alcohol Use: No Hx Tobacco Use: Yes Hx Substance Use: No Substance Use Type: Nicotine/Cigarettes Other Substances Used: 5 A DAY Hx of Substance Use Treatment: No Allergies-Medications (Allergen,Severity, Reaction): Coded Allergies: Penicillin (Verified Allergy, Unknown, Hives, 01/29/17) Toradol (Verified Allergy, Unknown, 01/29/17) Reported Meds & Prescriptions Reported Meds & Active Scripts Active Isosorbide Mononitrate ER (Isosorbide Mononitrate) 30 Mg Ronny 15 Mg PO DAILY@07 Furosemide 20 Mg Tab 20 Mg PO DAILY Effient (Prasugrel) 10 Mg Tab 10 Mg PO DAILY Lipitor (Atorvastatin Calcium) 80 Mg Tab 80 Mg PO DAILY Aspirin 81 Mg Chew 81 Mg CHEW DAILY Oxycodone-Acetaminophen 10-325 mg Tab 1 Tab PO Q6H PRN Fluticasone Nasal [place] 50 Mcg/Act Naspr 1 [place] NASAL BID Ventolin Hfa 18 GM Inh (Albuterol Sulfate) 90 Mcg/Act Aer 2 Puff INH Q4-6H PRN Nitroglycerin SL (Nitroglycerin) 0.3 Mg Subl 0.3 Mg SL DIRECTED PRN ONE TABLET UNDER THE TONGUE NEEDED FOR CHEST PAIN, MAY REPEAT EVERY FIVE MINUTES FOR A TOTAL OF 3 DOSES OR CALL 911 IF NO RELIEF. Protonix (Pantoprazole Sodium) 40 Mg Tab 40 Mg PO DAILY Reported Gabapentin 600 Mg Tab 600 Mg PO TID Alprazolam 1 Mg Tab 1 Mg PO BID Review of Systems ROS Limitations: Clinical Condition Except as stated in HPI: all other systems reviewed are Neg Exam Exam Limitations: Clinical Condition Alert: Yes [place]: Person, Place, Date, Situation Mood: Calm, Depressed Affect: Restricted Speech: Clear, Logical Eye Contact: Indirect Memory Intact: Immediate, Recent, Remote Suicidal: Plan, Ideation Insight/Judgement Impaired insight and impaired judgment. [facility] Medical Decision Making Medical Record Reviewed: Yes Assessment/Plan Patient to be admitted to the inpatient psychiatric service due to ongoing suicidal threats, including walking into traffic. Patient is homeless but he is not abusing alcohol or drugs. He does have some degree of physical abnormality with his cardiac condition. This may be contributing to his suicidality. In either case, this physician believes the patient should be admitted, observed and evaluated for further treatment. Orders Ct Brain W/O Iv Contrast(Rout) (01/30/17 17:30) Ct Cerv Spine W/O Contrast (01/30/17 17:30) Prothrombin Time / Inr (Pt) (01/30/17 17:31) Act Partial Throm Time (Ptt) (01/30/17 17:31) Complete Blood Count With Diff (01/30/17 17:31) Comprehensive Metabolic Panel (01/30/17 17:31) Creatine Kinase (Cpk) (01/30/17 17:31) Drug Screen, Random Urine (01/30/17 17:31) Troponin I (01/30/17 17:31) Urinalysis - C+S If Indicated (01/30/17 17:31) Chest, Single Ap (01/30/17 17:31) Ecg Monitoring (01/30/17 17:31) Iv Access Insert/Monitor (01/30/17 17:31) Oximetry (01/30/17 17:31) Sodium Chloride 0.9% Flush (Ns Flush) (01/30/17 17:45) Alcohol (Ethanol) (01/30/17 17:31) Salicylates (Aspirin) (01/30/17 17:31) Tylenol (Acetaminophen) (01/30/17 17:31) Tetanus/Diphtheria Tox Adult (Tetanus/Di (01/30/17 17:45) Sodium Chlor 0.9% 1000 Ml Inj (Ns 1000 M (01/30/17 17:45) Lactic Acid Sepsis Protocol (01/30/17 17:44) Influenzae A/B Antigen (01/30/17 17:44) Blood Culture (01/30/17 17:44) Troponin I (01/30/17 20:20) Electrocardiogram (01/30/17 17:27) Psych Screen (01/30/17 22:50) Diet Regular Basic (01/31/17 Breakfast) Acetaminophen (Tylenol) (01/31/17 10:30) Diet Regular Basic (01/31/17 Lunch) Admit To Inpatient Psych (01/31/17 ) Vital Signs (Adult) PONCE.Q12H.E (01/31/17 12:51) Activity Oob Ad Jimena (01/31/17 12:51) Lorazepam (Ativan) (01/31/17 13:00) Lorazepam Inj (Ativan Inj) (01/31/17 13:00) Lorazepam (Ativan) (01/31/17 13:00) Lorazepam Inj (Ativan Inj) (01/31/17 13:00) Acetaminophen (Tylenol) (01/31/17 13:00) Magnesium Hydroxide Liq (Milk Of Magnesi (01/31/17 13:00) Al-Mag Hy-Si 40-40-4 Mg/Ml Liq (Mag-Al P (01/31/17 13:00) Nicotine 21 Mg Patch.24 Hr (Habitrol 21 (01/31/17 13:00) Basic Metabolic Panel (Bmp) (02/01/17 06:00) Lipid Profile (02/01/17 06:00) Hemoglobin (Hgb) A1c (02/01/17 06:00) Results Vital Signs Date Time Temp Pulse Resp B/P Pulse Ox O2 Delivery O2 Flow Rate FiO2 01/31/17 11:23 75 18 138/71 97 01/31/17 06:47 65 18 01/31/17 06:35 97.5 65 18 135/71 97 Room Air 01/31/17 04:50 97 01/31/17 02:01 80 19 139/55 97 Room Air 01/30/17 17:32 99.2 98 23 143/88 Laboratory Tests Test 01/30/17 01/30/17 01/31/17 18:20 21:28 10:55 White Blood Count 10.6 Red Blood Count 5.09 Hemoglobin 13.9 Hematocrit 41.9 Mean Corpuscular Volume 82.3 Mean Corpuscular Hemoglobin 27.4 Mean Corpuscular Hemoglobin 33.2 Concent Red Cell Distribution Width 16.3 Platelet Count 284 Mean Platelet Volume 8.8 Neutrophils (%) (Auto) 84.1 Lymphocytes (%) (Auto) 11.9 Monocytes (%) (Auto) 3.1 Eosinophils (%) (Auto) 0.2 Basophils (%) (Auto) 0.7 Neutrophils # (Auto) 8.9 Lymphocytes # (Auto) 1.3 Monocytes # (Auto) 0.3 Eosinophils # (Auto) 0.0 Basophils # (Auto) 0.1 CBC Comment DIFF FINAL Differential Comment Prothrombin Time 10.7 Prothromb Time International 1.0 Ratio Activated Partial 26.4 Thromboplast Time Sodium Level 137 Potassium Level 3.9 Chloride Level 102 Carbon Dioxide Level 26.2 Anion Gap 9 Blood Urea Nitrogen 28 Creatinine 1.26 Estimat Glomerular Filtration 58 Rate Random Glucose 129 Calcium Level 9.0 Total Bilirubin 0.7 Aspartate Amino Transf 18 (AST/SGOT) Alanine Aminotransferase 21 (ALT/SGPT) Alkaline Phosphatase 91 Total Creatine Kinase 134 Troponin I LESS THAN 0.02 LESS THAN 0.02 Total Protein 8.9 Albumin 4.3 Salicylates Level 3.8 Acetaminophen Level LESS THAN 2.0 Ethyl Alcohol Level LESS THAN 3 Lactic Acid Level 0.8 Urine Color YELLOW Urine Turbidity CLEAR Urine pH 6.5 Urine Specific [place] 1.024 Urine Protein TRACE Urine Glucose (UA) NEG Urine Ketones 10 Urine Occult Blood NEG Urine Nitrite NEG Urine Bilirubin NEG Urine Urobilinogen LESS THAN 2.0 Urine Leukocyte Esterase NEG Urine RBC 2 Urine WBC 1 Urine Amorphous Sediment RARE Urine Mucus FEW Microscopic Urinalysis Comment CATH-CULT NOT IND Urine Opiates Screen NEG Urine Barbiturates Screen NEG Urine Amphetamines Screen NEG Urine Benzodiazepines Screen POS Urine Cocaine Screen NEG Urine Cannabinoids Screen NEG Date/Time Procedure Status Source Growth 01/30/17 21:28 Aerobic Blood Culture - Preliminary Resulted Blood Peripheral NO GROWTH IN 1 DAY 01/30/17 21:28 Anaerobic Blood Culture - Preliminary Resulted Blood Peripheral NO GROWTH IN 1 DAY Diagnosis Primary Impression: Adjustment disorder with mixed disturbance of emotions and conduct Additional Instructions: Please follow-up with the primary care doctor as well as your nutrition partner first thing in the morning Return to the emergency room as needed Return to emergency room if symptoms return Arnaud Thompson MD Jan 31, 2017 12:56
[2017-01-31] MEDS ORDERED: MAGNESIUM HYDROXIDE SUSP 30 ML CUP PO PRN (13:00)
[2017-01-31] MEDS ORDERED: ALUMINUM/MAGNESIUM/SIMETH 30 ML CUP PO PRN (13:00)
[2017-01-31] MEDS ORDERED: LORazepam 2 MG/ML VIAL IM PRN ×2 (13:00)
[2017-01-31] MEDS ORDERED: LORazepam 0.5 MG TAB PO PRN (13:00)
--- NOTE | 2017-01-31 14:45 | EKG ---
Date Performed: 01/30/2017 Time Performed: 17:27:17 PTAGE: 61 years EKG: Sinus rhythm POSSIBLE LEFT ATRIAL ENLARGEMENT BORDERLINE ECG Compared to prior tracing no significant change PREVIOUS TRACING : 01/29/2017 18.28 DOCTOR: Mario Mendez Interpretating Date/Time 01/31/2017 14:41:05
[2017-01-31 15:30] VITALS: BP 113/69; PULSE 77; RESP 16; TEMP 98.2
[2017-01-31] MEDS: LORazepam 1 MG TAB PO PRN ×2 (16:34→23:28)
[2017-01-31] MEDS: NICOTINE 21 MG/24 HR PATCH T-DERMAL SCH (16:36)
[2017-01-31 19:00] VITALS: BP 126/69; PULSE 70; RESP 16; TEMP 98.2; O2SAT 98
[2017-01-31] MEDS: ACETAMINOPHEN 325 MG TAB PO PRN (20:19)
[2017-02-01 06:03] VITALS: BP 108/60; PULSE 70; RESP 18; TEMP 98.3; O2SAT 98
[2017-02-01] MEDS: LORazepam 1 MG TAB PO PRN ×3 (09:11→21:09)
[2017-02-01] MEDS: ACETAMINOPHEN 325 MG TAB PO PRN (09:12)
[2017-02-01] MEDS: NICOTINE 21 MG/24 HR PATCH T-DERMAL SCH (09:14)
--- NOTE | 2017-02-01 13:50 | HHI.HP ---
Provisional Diagnosis Admission Date Jan 31, 2017 at 13:00 [place]. Adjustment disorder with mixed disturbance of emotions and conduct. Certification of Person's Competence To Provide Express and Informed Consent I have personally examined Miguel A Zazueta , a person being served at [facility] on, Feb 01, 2017 13:44. Express and informed consent means consent voluntarily given in writing, by a competent person, after sufficient explanation and disclosure of the subject matter involved to enable the person to make a knowing and willful decision without any element of force, fraud, deceit, duress, or other form of constraint or coercion. This person is 18 years of age or older, is not now known to be incompetent to consent to treatment with a guardian advocate, and does not have a health care surrogate or proxy currently making medical treatment decisions. I have found this person to be one of the following: [x] Competent to provide express and informed consent, as defined above, for voluntary admission to this facility and is competent to provide express and informed consent for treatment. He/she has the consistent capacity to make well reasoned, willful, and knowing decisions concerning his or her medical or mental health treatment. The person fully and consistently understands the purpose of the admission for examination/placement and is fully capable of personally exercising all rights assured [place] [] Incompetent to provide express and informed consent to voluntary admission, and this is incompetent to provide express and informed consent to treatment. The person must be transferred to involuntary status and a petition for a guardian advocate filed with the Circuit Court. [] Refusing to provide express and informed consent to voluntary admission but is competent to provide express and informed consent for treatment. The person must be discharged or transferred to involuntary status. Form shall be completed within 24 hours of a person's arrival at the receiving facility and filed in the clinical record of each person: 1. Admitted on a voluntary basis 2. Permitted to provide express and informed consent to his/her own treatment 3. Allowed to transfer from involuntary to voluntary status 4. Prior to permitting a person to consent to his or her own treatment after having been previously found incompetent to consent to treatment. History of Present Illness Capacity: Has Capacity HPI This is a 61-year-old male who presents voluntarily for symptoms of depression with suicidal ideation. The patient has a long history of congestive heart failure and multiple syncopal episodes. He has multiple cuts on his forehead from falling this most recent occasion. Apparently the physical medicine doctors have had difficulty discerning any biological basis for his syncope. However, he is diagnosed as having congestive heart failure in the medical record. He describes multiple symptoms of depressed mood, anhedonia, low self- esteem, diminished energy, feelings of hopelessness and helplessness, difficulty sleeping, change in appetite, as well as suicidal ideation with plan to overdose. Additional stressors are financial and he has limited choices for living situations. He does not have significant family support. He denies any history of alcohol or drug abuse. Review of Systems ROS Limitations: Clinical Condition Except as stated in HPI: all other systems reviewed are Neg Past Psych History Psychological trauma history Denied Violence risk - others (6 mos) Minimal Violence risk - self (6 mos) Moderate. The patient is feeling desperate because he cannot find a solution to his syncopal episodes. Substance Abuse History Drugs/Alcohol past 12 months Denied. Past Family Social History Coded Allergies: Penicillin (Verified Allergy, Unknown, Hives, 01/29/17) Toradol (Verified Allergy, Unknown, 01/29/17) Active Scripts Isosorbide Mononitrate ER 30 Mg Taber15 Mg PO DAILY@07 #30 TAB Prov:Mellissa Asif PA-C 01/25/17 Furosemide 20 Mg Tab20 Mg PO DAILY #30 TAB Prov:Mellissa Asif PA-C 01/25/17 Prasugrel (Effient)10 Mg Tab10 Mg PO DAILY #30 TAB Prov:Mellissa Asif PA-C 01/25/17 Atorvastatin (Lipitor)80 Mg Tab80 Mg PO DAILY #30 TAB Prov:Mellissa Asif PA-C 01/25/17 Aspirin 81 Mg Chew81 Mg CHEW DAILY #30 TAB Ref 0 Prov:Mellissa Asif PA-C 01/25/17 Oxycodone-Acetaminophen 10-325 mg Tab1 Tab PO Q6H PRN (PAIN) #20 TAB Ref 0 Prov:Oscar Hurst MD 01/05/17 Fluticasone Nasal [place] 50 Mcg/Act Naspr1 [place] NASAL BID #1 BOTTLE Prov:Sofie Chisholm MD 12/11/16 Albuterol 18 GM Inh (Ventolin Hfa 18 GM Inh)90 Mcg/Act Aer2 Puff INH Q4-6H PRN ( SOB/WHEEZING) #1 INHALER Prov:Bev Milligan 10/12/16 Nitroglycerin SL 0.3 Mg Subl0.3 Mg SL DIRECTED PRN (CHEST PAIN) #10 TAB.SL Ref 0 ONE TABLET UNDER THE TONGUE NEEDED FOR CHEST PAIN, MAY REPEAT EVERY FIVE MINUTES FOR A TOTAL OF 3 DOSES OR CALL 911 IF NO RELIEF. Prov:Bev Milligan 10/12/16 Pantoprazole (Protonix)40 Mg Tab40 Mg PO DAILY #30 TAB Ref 0 Prov:Bev Milligan 10/12/16 Reported Medications Gabapentin 600 Mg [id number] Mg PO TID #90 TAB Ref 0 01/02/17 Alprazolam 1 Mg Tab1 Mg PO BID Ref 0 12/19/16 Discontinued Reported Medications Aspirin 81 Mg Chew81 Mg CHEW DAILY Ref 0 11/04/16 Discontinued Scripts Isosorbide Mononitrate ER 30 Mg Taber15 Mg PO DAILY@07 #30 TAB Prov:Mellissa Asif PA-C 01/05/17 Lisinopril 5 Mg Tab2.5 Mg PO DAILY #30 TAB Prov:Kathrine,Thendrex 12/14/16 Furosemide 20 Mg Tab20 Mg PO BID #60 TAB Prov:Kathrine,Thendrex 12/14/16 Prasugrel (Effient)10 Mg Tab10 Mg PO DAILY #30 TAB Prov:KathrineThendrex 12/14/16 Metoprolol Tartrate 25 Mg Tab12.5 Mg PO Q12HR #60 TAB Prov:Zaira Chisohlmex 12/14/16 Atorvastatin (Lipitor)80 Mg Tab80 Mg PO DAILY #30 TAB Prov:Sofie Chisholm MD 12/11/16 Current Medications Medications (Trade) Dose Ordered Sig/Libby Route Start Time Stop Time Status Last Admin (NS Flush) 2 ml UNSCH PRN IVF 01/30/17 17:45 (Tylenol) 500 mg Q6H PRN PO 01/31/17 10:30 01/31/17 11:52 (Ativan) 1 mg Q6H PRN PO 01/31/17 13:00 02/01/17 09:11 (Ativan Inj) 1 mg Q6H PRN IM 01/31/17 13:00 (Ativan) 0.5 mg Q12H PRN PO 01/31/17 13:00 (Ativan Inj) 0.5 mg Q12H PRN IM 01/31/17 13:00 (Tylenol) 650 mg Q4H PRN PO 01/31/17 13:00 02/01/17 09:12 (Milk Of Magnesia Liq) 30 ml DAILY PRN PO 01/31/17 13:00 (Mag-Al Plus Susp Liq) 30 ml Q6H PRN PO 01/31/17 13:00 (Habitrol 21 Mg Patch.24 Hr) 1 patch DAILY T-DERMAL 01/31/17 13:00 02/01/17 09:14 Family History Positive for depression and anxiety. Social History Patient reportedly receives some small income on a monthly basis he vehemently denies alcohol or drug abuse and the medical record supports his contention. He does not have close relationships with any biological family members however. Patient's Strengths (min. 2) Verbal and wants assistance. Physical Exam GENERAL: SKIN: Warm and dry. HEAD: Normocephalic. EYES: No scleral icterus. No injection or drainage. NECK: Supple, trachea midline. No JVD or lymphadenopathy. CARDIOVASCULAR: Regular rate and rhythm without murmurs, gallops, or rubs. RESPIRATORY: Breath sounds equal bilaterally. No accessory muscle use. GASTROINTESTINAL: Abdomen soft, non-tender, nondistended. MUSCULOSKELETAL: No cyanosis, or edema. BACK: Nontender without obvious deformity. No CVA tenderness. Vital Signs Vital Signs Date Time Temp Pulse Resp B/P Pulse Ox O2 Delivery O2 Flow Rate FiO2 02/01/17 06:03 98.3 70 18 108/60 98 01/31/17 06:35 Room Air I/O 01/31/17 01/31/17 02/01/17 08:00 16:00 00:00 Intake Total 240 ml Balance 240 ml Mental Status Examination Speech: Unremarkable Orientation: x3 Memory: Unremarkable Thought Process: Organized, Goal Directed Thought Content: Unremarkable Hallucination Type: None Attention and Concentration: Good Suicidal Ideation: Yes Previous Suicide Attempts: Yes Homicidal Ideation: No Previous Homicide Attempts: No Insight: Fair Judgement: WNL Affect: Anxious, Sad Affect if Inappropriate: Blunt Mood: Sad Motor Activity: Normal gait Assessment & Plan Problem List: (1) Adjustment disorder with mixed anxiety and depressed mood ICD Code: F43.23 Assessment & Plan Estimated LOS: 5 days will observe and evaluate for symptoms of depression and start him on Lexapro 5 mg by mouth daily. He will be asked to participate in individual and group therapies. We will also ask for a hospitalist consult to continue to evaluate his cardiac status. This physician feels the patient is at high risk for self-harm due to his frustration and hopelessness regarding his physical ailments. Arnaud Thompson MD Feb 01, 2017 13:50
[2017-02-01] MEDS ORDERED: PILL SPLITTER OTHER PRN (14:00)
[2017-02-01] MEDS: ACETAMINOPHEN 500 MG CPLT PO PRN (16:59)
[2017-02-01 19:55] VITALS: BP 122/73; PULSE 88; RESP 16; TEMP 96.8; O2SAT 99
[2017-02-01] MEDS: ESCITALOPRAM OXALATE 10 MG TAB PO SCH (21:00)
[2017-02-02] MEDS: LORazepam 1 MG TAB PO PRN ×4 (03:12→22:05)
[2017-02-02 07:47] LABS: ANION GAP 7 MEQ/L (5-15); BICARBONATE 24.6 MEQ/L (21.0-32.0); BLOOD UREA NITROGEN 14 MG/DL (7-18); CHLORIDE 112 MEQ/L (98-107); GLOMERULAR FILTRATION RATE 95 ML/MIN (>89); POTASSIUM 3.8 MEQ/L (3.5-5.1); SODIUM (NA) 144 MEQ/L (136-145)
[2017-02-02 07:50] LABS: HDL CHOLESTEROL 37.2 MG/DL (40.0-60.0); LDL CHOLESTEROL 104 MG/DL (0-99)
[2017-02-02] MEDS ORDERED: ALBUTEROL SULFATE 90 MCG/ACT HFA 8 GM INHALER INH PRN (08:00)
[2017-02-02] MEDS: ASPIRIN 81 MG CHEW TAB CHEW SCH (08:53)
[2017-02-02] MEDS: ATORVASTATIN 80 MG TAB PO SCH (08:53)
[2017-02-02] MEDS: PANTOPRAZOLE SOD 40 MG DELAYED RELEASE TAB PO SCH (08:54)
[2017-02-02] MEDS: NICOTINE 21 MG/24 HR PATCH T-DERMAL SCH (08:57)
[2017-02-02] MEDS: PRASUGREL 10 MG TAB PO SCH (09:00)
[2017-02-02] MEDS: FUROSEMIDE 20 MG TAB PO SCH (09:00)
[2017-02-02] MEDS: FLUTICASONE PROPIONATE 50 MCG/ACT 16 GM NASAL SPRAY NASAL SCH ×3 (09:00→22:06)
[2017-02-02] MEDS: GABAPENTIN 300 MG CAP PO SCH ×2 (12:28→17:39)
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
[2017-02-02 13:27] LABS: HEMOGLOBIN A1a 0.8 %; HEMOGLOBIN A1b 0.9 %; HEMOGLOBIN Ao 84.2 %; HEMOGLOBIN F 0.9 %; HEMOGLOBIN LA1C 2.3 %
--- NOTE | 2017-02-02 16:22 | HHI.PYPN ---
Subjective Remarks Patient was seen and case discussed with nursing. Patient is blunted and apathetic during the interview. Poor insight into his admission. Describes his mood is "good." Asking for opiates for pain. Patient was told that this prescriber does not prescribe opiate medications. Patient denies suicidal ideations thought content or plan. Objective Alert: Yes [place]: Person, Place, Date, Situation Mood: Depressed Affect: Blunted Memory Intact: Immediate, Recent, Remote Hallucinations: Other (denies) Delusions: No Delusion Type: Other (denies) Suicidal: Ideation (denies) Homicidal: Ideation (denies) Insight/Judgement Poor Labs Test 02/02/17 06:31 Sodium Level 144 MEQ/L Potassium Level 3.8 MEQ/L Chloride Level 112 MEQ/L Carbon Dioxide Level 24.6 MEQ/L Anion Gap 7 MEQ/L Blood Urea Nitrogen 14 MG/DL Creatinine 0.83 MG/DL Estimat Glomerular Filtration 95 ML/MIN Rate Random Glucose 116 MG/DL Hemoglobin A1c 6.1 % Calcium Level 8.9 MG/DL Triglycerides Level 144 MG/DL Cholesterol Level 170 MG/DL LDL Cholesterol 104 MG/DL HDL Cholesterol 37.2 MG/DL Cholesterol/HDL Ratio 4.56 RATIO Date/Time Procedure Status Source Growth 01/30/17 21:28 Aerobic Blood Culture - Preliminary Resulted Blood Peripheral NO GROWTH IN 3 DAYS 01/30/17 21:28 Anaerobic Blood Culture - Preliminary Resulted Blood Peripheral NO GROWTH IN 3 DAYS Vitals/IOs Vital Signs Date Time Temp Pulse Resp B/P Pulse Ox O2 Delivery O2 Flow Rate FiO2 02/01/17 19:55 96.8 88 16 122/73 99 01/31/17 06:35 Room Air Assessment & Plan Problem List: (1) Adjustment disorder with mixed anxiety and depressed mood ICD Code: F43.23 Assessment & Plan Continue current treatment plan Justification for Cont. Inpt. Patient will decompensate in a less restrictive setting Popeye Morales DO Feb 02, 2017 16:22
[2017-02-02] MEDS: traMADol HCL 50 MG TAB PO PRN (16:24)
--- NOTE | 2017-02-02 16:32 | HHI.PYPN ---
Subjective Remarks Patient was seen and case discussed with nursing. Patient is pleasant and cooperative with exam. We discussed patient's sign in voluntary and he has the capacity to do so.'s pleasant and cooperative with exam. Somewhat perseverative on pain medication. Medicine saw him and prescribed him Ultram. Describes his mood is "anxious." Denies auditory visual hallucinations. Fleeting suicidal thoughts with no plan Objective Alert: Yes [place]: Person, Place, Date, Situation Mood: Depressed Affect: Restricted Memory Intact: Immediate Hallucinations: Other (denies) Delusions: No Delusion Type: Other (denies) Suicidal: Ideation (fleeting) Homicidal: Ideation (denies) Insight/Judgement Poor Labs Test 02/02/17 06:31 Sodium Level 144 MEQ/L Potassium Level 3.8 MEQ/L Chloride Level 112 MEQ/L Carbon Dioxide Level 24.6 MEQ/L Anion Gap 7 MEQ/L Blood Urea Nitrogen 14 MG/DL Creatinine 0.83 MG/DL Estimat Glomerular Filtration 95 ML/MIN Rate Random Glucose 116 MG/DL Hemoglobin A1c 6.1 % Calcium Level 8.9 MG/DL Triglycerides Level 144 MG/DL Cholesterol Level 170 MG/DL LDL Cholesterol 104 MG/DL HDL Cholesterol 37.2 MG/DL Cholesterol/HDL Ratio 4.56 RATIO Date/Time Procedure Status Source Growth 01/30/17 21:28 Aerobic Blood Culture - Preliminary Resulted Blood Peripheral NO GROWTH IN 3 DAYS 01/30/17 21:28 Anaerobic Blood Culture - Preliminary Resulted Blood Peripheral NO GROWTH IN 3 DAYS Vitals/IOs Vital Signs Date Time Temp Pulse Resp B/P Pulse Ox O2 Delivery O2 Flow Rate FiO2 02/01/17 19:55 96.8 88 16 122/73 99 01/31/17 06:35 Room Air Assessment & Plan Problem List: (1) Adjustment disorder with mixed anxiety and depressed mood ICD Code: F43.23 Assessment & Plan May sign voluntary Justification for Cont. Inpt. Patient will decompensate in a less restrictive setting Popeye Morales DO Feb 02, 2017 16:32
[2017-02-02 17:45] VITALS: BP 121/74; PULSE 93; RESP 18; TEMP 98.1; O2SAT 97
[2017-02-02] MEDS: ESCITALOPRAM OXALATE 10 MG TAB PO SCH (21:00)
[2017-02-03] MEDS: traMADol HCL 50 MG TAB PO PRN ×4 (02:25→18:21)
[2017-02-03] MEDS: ISOSORBIDE MONONITRATE 30 MG TAB PO SCH (06:11)
[2017-02-03 06:23] VITALS: BP 117/72; PULSE 72; RESP 18; TEMP 97.8; O2SAT 99
[2017-02-03] MEDS: PRASUGREL 10 MG TAB PO SCH (08:53)
[2017-02-03] MEDS: PANTOPRAZOLE SOD 40 MG DELAYED RELEASE TAB PO SCH (08:53)
[2017-02-03] MEDS: FLUTICASONE PROPIONATE 50 MCG/ACT 16 GM NASAL SPRAY NASAL SCH ×2 (08:53→21:03)
[2017-02-03] MEDS: ATORVASTATIN 80 MG TAB PO SCH (08:54)
[2017-02-03] MEDS: ASPIRIN 81 MG CHEW TAB CHEW SCH (08:54)
[2017-02-03] MEDS: FUROSEMIDE 20 MG TAB PO SCH (08:54)
[2017-02-03] MEDS: GABAPENTIN 300 MG CAP PO SCH ×3 (08:54→17:06)
[2017-02-03] MEDS: NICOTINE 21 MG/24 HR PATCH T-DERMAL SCH (09:00)
[2017-02-03] MEDS: LORazepam 1 MG TAB PO PRN ×3 (10:08→21:56)
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
[2017-02-03 17:31] VITALS: BP 110/68; PULSE 75; RESP 18; TEMP 97.6; O2SAT 98
[2017-02-03] MEDS: MIRTAZAPINE 15 MG TAB PO SCH (21:03)
[2017-02-04 05:28] VITALS: BP 123/71; PULSE 80; RESP 16; TEMP 97.3; O2SAT 98
[2017-02-04] MEDS: ISOSORBIDE MONONITRATE 30 MG TAB PO SCH (06:23)
[2017-02-04] MEDS: LORazepam 1 MG TAB PO PRN (06:23)
[2017-02-04] MEDS: traMADol HCL 50 MG TAB PO PRN ×3 (06:23→22:38)
[2017-02-04] MEDS: PANTOPRAZOLE SOD 40 MG DELAYED RELEASE TAB PO SCH (09:37)
[2017-02-04] MEDS: ASPIRIN 81 MG CHEW TAB CHEW SCH (09:37)
[2017-02-04] MEDS: FUROSEMIDE 20 MG TAB PO SCH (09:37)
[2017-02-04] MEDS: GABAPENTIN 300 MG CAP PO SCH ×3 (09:37→17:47)
[2017-02-04] MEDS: FLUTICASONE PROPIONATE 50 MCG/ACT 16 GM NASAL SPRAY NASAL SCH ×2 (09:38→21:01)
[2017-02-04] MEDS: ATORVASTATIN 80 MG TAB PO SCH (09:38)
[2017-02-04] MEDS: PRASUGREL 10 MG TAB PO SCH (09:38)
[2017-02-04] MEDS: NICOTINE 21 MG/24 HR PATCH T-DERMAL SCH (09:42)
--- NOTE | 2017-02-04 10:37 | HHI.PYPN ---
Subjective Remarks Patient has been irritable and rude to nursing, seeking opiate pain medication, demanding and threatening. This physician will place him on Remeron as suggested in yesterday's progress note. Patient plan for discharge tomorrow. Patient continues to be concerned about reported syncopal episodes but this is not a reason for psychiatric admission. Review of Systems ROS Limitations: Clinical Condition Except as stated in HPI: all other systems reviewed are Neg Objective Alert: Yes Marydel: Person, Place, Date, Situation Mood: Anxious, Oppositional Affect: Blunted Memory Intact: Immediate (intact), Recent, Remote Hallucinations: Other (denies) Delusions: No Delusion Type: Other (denies) Suicidal: Ideation (fleeting, feeling hopeless) Homicidal: Ideation (denies) Insight/Judgement Adequate. Labs Date/Time Procedure Status Source Growth 01/30/17 21:28 Aerobic Blood Culture - Preliminary Resulted Blood Peripheral NO GROWTH IN 4 DAYS 01/30/17 21:28 Anaerobic Blood Culture - Preliminary Resulted Blood Peripheral NO GROWTH IN 4 DAYS Vitals/IOs Vital Signs Date Time Temp Pulse Resp B/P Pulse Ox O2 Delivery O2 Flow Rate FiO2 02/04/17 05:28 97.3 80 16 123/71 98 Intake and Output 02/03/17 02/03/17 02/04/17 08:00 16:00 00:00 Intake Total 240 ml 360 ml Balance 240 ml 360 ml Assessment & Plan Problem List: (1) Adjustment disorder with mixed anxiety and depressed mood ICD Code: F43.23 Assessment & Plan Estimated LOS: 1 days patient is felt to be manipulated by this physician and is rapidly reaching maximum benefit from this hospitalization. He will be started on Remeron if he was not started over the weekend. He will be discharged tomorrow. Justification for Cont. Inpt. Depressed with need for medication adjustment. Arnaud Thompson MD Feb 04, 2017 10:37
[2017-02-04] MEDS: ACETAMINOPHEN 500 MG CPLT PO PRN ×2 (15:55→22:38)
[2017-02-04] MEDS ORDERED: BENZOCAINE 7.5% ORAL GEL 9.4 GM TUBE OROPHARYNG PRN (20:30)
[2017-02-04] MEDS: MIRTAZAPINE 15 MG TAB PO SCH (21:02)
[2017-02-05 06:32] VITALS: BP 103/58; PULSE 78; RESP 18; TEMP 98; O2SAT 100
[2017-02-05] MEDS: ISOSORBIDE MONONITRATE 30 MG TAB PO SCH (06:44)
[2017-02-05] MEDS: ASPIRIN 81 MG CHEW TAB CHEW SCH (09:01)
[2017-02-05] MEDS: PRASUGREL 10 MG TAB PO SCH (09:01)
[2017-02-05] MEDS: GABAPENTIN 300 MG CAP PO SCH ×2 (09:01→13:04)
[2017-02-05] MEDS: FUROSEMIDE 20 MG TAB PO SCH (09:02)
[2017-02-05] MEDS: ATORVASTATIN 80 MG TAB PO SCH (09:02)
[2017-02-05] MEDS: PANTOPRAZOLE SOD 40 MG DELAYED RELEASE TAB PO SCH (09:02)
[2017-02-05] MEDS: NICOTINE 21 MG/24 HR PATCH T-DERMAL SCH (09:03)
[2017-02-05] MEDS: traMADol HCL 50 MG TAB PO PRN (09:03)
[2017-02-05] MEDS: FLUTICASONE PROPIONATE 50 MCG/ACT 16 GM NASAL SPRAY NASAL SCH (09:03)
--- NOTE | 2017-02-05 09:54 | HHI.DS ---
Psychiatry Discharge Summary Inpatient Psychiatric care?: Yes Advance Directive: No Mental Health AdvanceDirective: No Health Care Proxy: No Admission Admission Date Jan 31, 2017 at 13:00 Admission Diagnosis: (1) Adjustment disorder with mixed anxiety and depressed mood ICD Code: F43.23 Brief History This is a 61-year-old male who presents voluntarily for symptoms of depression with suicidal ideation. The patient has a long history of congestive heart failure and multiple syncopal episodes. He has multiple cuts on his forehead from falling this most recent occasion. Apparently the physical medicine doctors have had difficulty discerning any biological basis for his syncope. However, he is diagnosed as having congestive heart failure in the medical record. He describes multiple symptoms of depressed mood, anhedonia, low self- esteem, diminished energy, feelings of hopelessness and helplessness, difficulty sleeping, change in appetite, as well as suicidal ideation with plan to overdose. Additional stressors are financial and he has limited choices for living situations. He does not have significant family support. He denies any history of alcohol or drug abuse. Tobacco Use In Past 30 Days: No Tobacco Past 30 Days Alcohol Use: Never Hospital Course No procedures were performed. The patient did participate in individual and group therapies. He was evaluated by the hospitalist for his ongoing syncope complaints. He was noted not to have any syncope episodes during this hospitalization. Results Blood Pressure 103 / 58 Vital Signs Date Time Temp Pulse Resp B/P Pulse Ox O2 Delivery O2 Flow Rate FiO2 02/05/17 06:32 98.0 78 18 103/58 100 Laboratory Results Test 02/02/17 06:31 Hemoglobin A1c 6.1 % (4.3-6.0) Triglycerides Level 144 MG/DL (42-150) Cholesterol Level 170 MG/DL (120-200) LDL Cholesterol 104 MG/DL (0-99) HDL Cholesterol 37.2 MG/DL (40.0-60.0) Summary of Procedures None Imaging Last Impressions Chest X-Ray 01/30/171730 Signed Impressions: Service Date/Time: Monday, January 30, 2017 18:00 - CONCLUSION: No acute cardiopulmonary disease. Raquel Duron MD Head CT 01/30/171729 Signed Impressions: Service Date/Time: Monday, January 30, 2017 17:39 - CONCLUSION: Normal examination. Cr Meza MD Cervical Spine CT 3/22/17 1730 Signed Impressions: Service Date/Time: Monday, January 30, 2017 17:39 - CONCLUSION: Degenerative changes. No evidence of acute bony injury in the cervical spine Cr Meza MD Pending results at discharge: No Medications # of Antipsychotic meds at D/C: 0 Approp Antipsych med options 1 - Minimum of three failed multiple trials of monotherapy. 2 - Documented plan to taper to monotherapy due to previous use of multiple meds OR cross-taper in progress at D/C. 3 - Documentation of augmentation of Clozapine. 4 - Justification other than those listed in allowable values 1-3, document here : Discharge Discharge Date: Feb 05, 2017 Discharge Diagnosis: (1) Adjustment disorder with mixed disturbance of emotions and conduct Diagnosis: Principal ICD Code: F43.25 Mental Status Exam at Disch Calm and cooperative. No suicidal or homicidal ideation, plan or intent. No evidence of psychotic thinking. Cognition intact. Pt Condition on Discharge: Stable Discharge Disposition: Discharge Home Discharge Instructions Diet Instructions: As Tolerated, No Restrictions Activities you can perform: Regular-No Restrictions Scheduled Appointment: Derian Cruz Appointment Date: Feb 11, 2017 Appointment Time: 7:30am Discharge Time <= 30 minutes Discharge/Advance Care Plan Health Problems: (1) Adjustment disorder with mixed anxiety and depressed mood Goals to promote your health * To prevent worsening of your condition and complications * To maintain your health at the optimal level Directions to meet your goals Take your medications as prescribed Follow your dietary instruction Follow activity as directed Keep your appointments as scheduled Take your immunizations and boosters as scheduled If your symptoms worsen call your PCP, if no PCP go to Urgent Care Center or Emergency Room For 03/06 questions related to your inpatient stay or results of tests pending at discharge, please contact Dr. Arnaud Thompson at Smoking is Dangerous to Your Health. Avoid second hand smoking Arnaud Thompson MD Feb 05, 2017 09:54
[2017-02-05] MEDS ORDERED: FURO20TA PO (13:10)
[2017-02-05] MEDS ORDERED: PRAS10TA PO (13:10)
[2017-02-05] MEDS ORDERED: ISOS30TA3 PO (13:10)
[2017-02-05] MEDS ORDERED: ASPI81CH CHEW (13:10)
[2017-02-05] MEDS ORDERED: LIPI80TA PO (13:10)
[2017-02-05] MEDS ORDERED: GABA600T PO (13:11)
== END 2017-02-05 13:50 | disposition home or self-care (01) | DRG 882 ==
LOC: NEPA 17:22 → NEDA 01-31 13:00 → H260 01-31 13:30
PROVIDERS: ADMIT Psychiatry & Neurology Psychiatry; ATTEND Psychiatry & Neurology Psychiatry
DX: F43.25 Adjustment disorder with mixed disturbance of emotions and conduct (principal); I50.22 Chronic systolic (congestive) heart failure; G62.9 Polyneuropathy, unspecified; I10 Essential (primary) hypertension; I25.10 Atherosclerotic heart disease of native coronary artery without angina pectoris; Z95.1 Presence of aortocoronary bypass graft; Z95.5 Presence of coronary angioplasty implant and graft; E78.5 Hyperlipidemia, unspecified; F17.210 Nicotine dependence, cigarettes, uncomplicated; Z59.0 Homelessness; G89.4 Chronic pain syndrome; R55 Syncope and collapse; R29.6 Repeated falls
CPT/HCPCS: 70450; 71010; 71020; 72125; 80048; 80053; 80061; 80307; 81001; 82550; 82552; 83036; 83605; 83735; 84484; 85025; 85610; 85730; 87040; 90471; 90714; 93005; 96374; J2060; J7030

== ENCOUNTER 2017-02-14 16:53 | Observation (INO) | payer OTHER ==
[~2017-02-14] VITALS: Ht 167.6 cm; Wt 68.0 kg
[2017-02-14] VITALS (7 sets, daily range): BP systolic 97–139; BP diastolic 55–86; PULSE 80–95; RESP 16–20; TEMP 97.8–98.2; O2SAT 92–99
[~2017-02-14 16:53] MED LIST changes: -OXYC1TAB36 PO
[2017-02-14] MEDS ORDERED: SODIUM CHLORIDE 0.9% FLUSH 10 ML FLUSH IVF PRN (18:00)
--- NOTE | 2017-02-14 18:02 | PD ---
HPI Chief Complaint: Chest Pain Time Seen by Provider: 17:53 Travel History International Travel<30 days: No Contact w/Intl Traveler<30days: No Traveled to known affect area: No History of Present Illness HPI This is a 61-year-old gentleman with history of coronary artery disease, hypertension, hyperlipidemia, who presents today with complaints of chest pain. Patient states he's had several episodes of intermittent crushing-like chest pain. He states the pain feels as though it did when he had his last stent placed in November. The patient denies any shortness of breath. The patient does state that he's had multiple syncopal episodes as well. He states he's passed out earlier today and struck his head. He is concerned that the chest pain and the syncope may be related. He denies any neck pain but does report pain in his forehead. The patient is somewhat of a poor historian. It does sound like he is right now and not leaving in a safe environment and is worried that he is in a get his medications stolen as well. PFSH Past Medical History Hx Anticoagulant Therapy: Yes (EFFIENT) Arthritis: Yes Asthma: No Autoimmune Disease: No Blood Disorders: No Anxiety: Yes Depression: Yes Heart Rhythm Problems: No Cancer: No Cardiac Catheterization: Yes Cardiovascular Problems: Yes (STENTS / CABG) High Cholesterol: Yes Chest Pain: Yes Congestive Heart Failure: No COPD: No Cerebrovascular Accident: No Diabetes: No Diminished Hearing: No Endocrine: No Gastrointestinal Disorders: Yes GERD: Yes Genitourinary: No Headaches: No Hiatal Hernia: Yes Heparin Induced Thrombocytopen: No Hypertension: Yes Immune Disorder: No Implanted Vascular Access Dvce: Yes Kidney Stones: Yes Musculoskeletal: No Neurologic: Yes (multiple episodes of syncope) Psychiatric: No Reproductive: No Respiratory: Yes (COPD) Immunizations Current: Yes Migraines: Yes Myocardial Infarction: Yes Seizures: No Sickle Cell Disease: No Sleep Apnea: No Thyroid Disease: No Ulcer: No Tetanus Vaccination: < 5 Years Influenza Vaccination: Yes Past Surgical History Abdominal Surgery: No Body Medical Devices: STENTS Cardiac Surgery: Yes ( double cabg 2012 / 2015 for stents) Coronary Artery Bypass Graft: Yes Ear Surgery: No Endocrine Surgery: No Eye Surgery: No Genitourinary Surgery: No Gynecologic Surgery: No Neurologic Surgery: No Oral Surgery: No Thoracic Surgery: Yes (HX of CABG x 2) Other Surgery: Yes (CABG, STENTING) Social History Alcohol Use: No Tobacco Use: No Substance Use: No Allergies-Medications (Allergen,Severity, Reaction): Coded Allergies: Penicillin (Verified Allergy, Unknown, Hives, 02/14/17) Toradol (Verified Allergy, Unknown, 02/14/17) Reported Meds & Prescriptions Reported Meds & Active Scripts Active Gabapentin 600 Mg Tab 600 Mg PO TID Isosorbide Mononitrate ER (Isosorbide Mononitrate) 30 Mg Ronny 15 Mg PO DAILY@07 Furosemide 20 Mg Tab 20 Mg PO DAILY Effient (Prasugrel) 10 Mg Tab 10 Mg PO DAILY Lipitor (Atorvastatin Calcium) 80 Mg Tab 80 Mg PO DAILY Aspirin 81 Mg Chew 81 Mg CHEW DAILY Fluticasone Nasal [place] 50 Mcg/Act Naspr 1 [place] NASAL BID Ventolin Hfa 18 GM Inh (Albuterol Sulfate) 90 Mcg/Act Aer 2 Puff INH Q4-6H PRN Nitroglycerin SL (Nitroglycerin) 0.3 Mg Subl 0.3 Mg SL DIRECTED PRN ONE TABLET UNDER THE TONGUE NEEDED FOR CHEST PAIN, MAY REPEAT EVERY FIVE MINUTES FOR A TOTAL OF 3 DOSES OR CALL 911 IF NO RELIEF. Protonix (Pantoprazole Sodium) 40 Mg Tab 40 Mg PO DAILY Reported Oxycodone (Oxycodone HCl) 30 Mg Tab 30 Mg PO Q6H PRN Alprazolam 1 Mg Tab 1 Mg PO BID Review of Systems Except as stated in HPI: all other systems reviewed are Neg General / Constitutional: No: Fever, Chills HENT: Positive: Headaches, No: Lightheadedness, Neck Stiffness, Neck Pain ( rental) Cardiovascular: Positive: Chest Pain or Discomfort, Syncope, No: Palpitations , Irregular Rhythm Respiratory: No: Cough, Shortness of Breath Gastrointestinal: No: Nausea, Vomiting, Abdominal Pain Musculoskeletal: No: Myalgias, Arthralgias Neurologic: Positive: Syncope, Headache (bifrontal), No: Weakness, Dizziness, Change in Mentation, Slurred Speech Physical Exam Narrative GENERAL: Well-developed well-nourished gentleman in no obvious respiratory distress. SKIN: Focused skin assessment warm/dry. HEAD: The patient has an abrasion to the right mid forehead. Normocephalic. EYES: Pupils equal and round. No scleral icterus. No injection or drainage. ENT: Mucous membranes pink and moist. NECK: Trachea midline. No JVD. Supple CARDIOVASCULAR: Regular rate and rhythm. No murmur appreciated. RESPIRATORY: No accessory muscle use. Clear to auscultation. Breath sounds equal bilaterally. GASTROINTESTINAL: Abdomen soft, non-tender, nondistended. No palpable masses. MUSCULOSKELETAL: No obvious deformities. No clubbing. No cyanosis. No edema. NEUROLOGICAL: Awake and alert. No obvious cranial nerve deficits. Motor grossly within normal limits. Normal speech. Data Data Last Documented VS Vital Signs Date Time Temp Pulse Resp B/P Pulse Ox O2 Delivery O2 Flow Rate FiO2 02/14/17 18:05 80 128/71 02/14/17 18:05 Nasal Cannula 02/14/17 18:05 16 02/14/17 17:46 98 2 02/14/17 16:55 98.2 Orders Electrocardiogram (02/14/17 17:54) Basic Metabolic Panel (Bmp) (02/14/17 17:54) Ckmb (Isoenzyme) Profile (02/14/17 17:54) Complete Blood Count With Diff (02/14/17 17:54) Magnesium (Mg) (02/14/17 17:54) Prothrombin Time / Inr (Pt) (02/14/17 17:54) Act Partial Throm Time (Ptt) (02/14/17 17:54) Troponin I (02/14/17 17:54) Chest, Single Ap (02/14/17 17:54) Ecg Monitoring (02/14/17 17:54) Bilateral Bp Monitoring (02/14/17 17:54) Iv Access Insert/Monitor (02/14/17 17:54) Oximetry (02/14/17 17:54) Oxygen Administration (02/14/17 17:54) Sodium Chloride 0.9% Flush (Ns Flush) (02/14/17 18:00) Ct Brain W/O Iv Contrast(Rout) (02/14/17 17:54) CKMB (02/14/17 18:00) CKMB% (02/14/17 18:00) Labs Laboratory Tests Test 02/14/17 18:00 White Blood Count 7.1 TH/MM3 Red Blood Count 4.45 MIL/MM3 Hemoglobin 12.0 GM/DL Hematocrit 36.8 % Mean Corpuscular Volume 82.7 FL Mean Corpuscular Hemoglobin 27.0 PG Mean Corpuscular Hemoglobin 32.6 % Concent Red Cell Distribution Width 16.6 % Platelet Count 230 TH/MM3 Mean Platelet Volume 8.9 FL Neutrophils (%) (Auto) 76.6 % Lymphocytes (%) (Auto) 11.4 % Monocytes (%) (Auto) 9.3 % Eosinophils (%) (Auto) 2.1 % Basophils (%) (Auto) 0.6 % Neutrophils # (Auto) 5.5 TH/MM3 Lymphocytes # (Auto) 0.8 TH/MM3 Monocytes # (Auto) 0.7 TH/MM3 Eosinophils # (Auto) 0.1 TH/MM3 Basophils # (Auto) 0.0 TH/MM3 CBC Comment DIFF FINAL Differential Comment Prothrombin Time 10.5 SEC Prothromb Time International 1.0 RATIO Ratio Activated Partial 31.4 SEC Thromboplast Time Sodium Level 142 MEQ/L Potassium Level 4.3 MEQ/L Chloride Level 106 MEQ/L Carbon Dioxide Level 28.2 MEQ/L Anion Gap 8 MEQ/L Blood Urea Nitrogen 15 MG/DL Creatinine 0.85 MG/DL Estimat Glomerular Filtration 92 ML/MIN Rate Random Glucose 108 MG/DL Calcium Level 9.3 MG/DL Magnesium Level 2.5 MG/DL Total Creatine Kinase 136 U/L Creatine Kinase MB 2.7 NG/ML Troponin I LESS THAN 0.02 NG/ML MDM Medical Decision Making Medical Screen Exam Complete: Yes Emergency Medical Condition: Yes Differential Diagnosis ACS versus muscle skeletal pain versus peptic ulcer disease Cardiac syncope versus dehydration Narrative Course 61-year-old male with a history of coronary artery disease, hypertension, hyperlipidemia, who presents today with complaints of chest pain. Patient also reports syncopal episode. The patient has a extensive cardiac history with 1 two-vessel bypass in 2 episodes of catheter placed stents. EKG shows no evidence of acute ST elevation or depression. Cardiac enzymes are pending at this time. A CT scan of the brain was also ordered to rule out acute intracranial injury. The patient will be signed out to Dr. Calvin Taylor, physician replacing this physician, who will follow up on the labs and graphics studies and make the appropriate disposition. Diagnosis Primary Impression: Chest pain Additional Impressions: Syncope CAD (coronary artery disease) Hyperlipidemia Niels Castro MD Feb 14, 2017 18:02
[2017-02-14] MEDS ORDERED: OXYC30TA PO (18:12)
[2017-02-14 18:19] LABS: AUTOMATED NEUTROPHIL # 5.5 TH/MM3 (1.8-7.7); BASOPHIL % 0.6 % (0.0-2.0); EOSINOPHIL # 0.1 TH/MM3 (0-0.4); EOSINOPHIL % 2.1 % (0.0-4.0); HEMATOCRIT 36.8 % (39.0-51.0); HEMO FLAGS DIFF FINAL; LYMPH % 11.4 % (9.0-44.0); LYMPHOCYTE # 0.8 TH/MM3 (1.0-4.8); MEAN CELL VOLUME 82.7 FL (80.0-100.0); MEAN CORPUSCULAR HGB CONC 32.6 % (32.0-36.0); MONO % 9.3 % (0.0-8.0); NEUT % 76.6 % (16.0-70.0); PLATELET COUNT 230 TH/MM3 (150-450); RED BLOOD COUNT 4.45 MIL/MM3 (4.50-5.90); RED CELL DISTRIBUTION WIDTH 16.6 % (11.6-17.2); WHITE BLOOD COUNT 7.1 TH/MM3 (4.0-11.0)
[2017-02-14 18:34] LABS: CREATINE KINASE 136 U/L (39-308)
[2017-02-14 18:35] LABS: APTT (PATIENT) 31.4 SEC (24.3-30.1); PROTHROMBIN TIME - PATIENT 10.5 SEC (9.8-11.6)
[2017-02-14 18:37] LABS: ANION GAP 8 MEQ/L (5-15); BICARBONATE 28.2 MEQ/L (21.0-32.0); BLOOD UREA NITROGEN 15 MG/DL (7-18); CHLORIDE 106 MEQ/L (98-107); GLOMERULAR FILTRATION RATE 92 ML/MIN (>89); MAGNESIUM 2.5 MG/DL (1.5-2.5); POTASSIUM 4.3 MEQ/L (3.5-5.1); SODIUM (NA) 142 MEQ/L (136-145)
[2017-02-14 18:47] LABS: CKMB 2.7 NG/ML (0.5-3.6)
--- NOTE | 2017-02-14 18:54 | RADRPT ---
EXAM DATE/TIME: 02/14/2017 18:08 [facility] COMPARISON: CHEST SINGLE AP, January 30, 2017, 18:00. INDICATIONS : Patient has had chest pain since this morning and passed out and hit his head. MEDICAL HISTORY : Cardiovascular disease. Hypertension. SURGICAL HISTORY : None. ENCOUNTER: Initial ACUITY: 1 day PAIN SCORE: 10/10 LOCATION: Bilateral chest FINDINGS: The lungs are clear without infiltrate, nodule, or mass. There is no appreciable pleural effusion fo r technique. Heart and mediastinum are unremarkable. There is evidence for prior median sternotomy. CONCLUSION: No acute cardiopulmonary disease. Raquel Duron MD on February 14, 2017 at 18:52 Board Certified Radiologist. This report was verified electronically.
--- NOTE | 2017-02-14 19:06 | RADRPT ---
EXAM DATE/TIME: 02/14/2017 18:34 [facility] COMPARISON: CT BRAIN W/O CONTRAST, January 30, 2017, 17:39. INDICATIONS : Syncopal episode, laceration to forehead. RADIATION DOSE: 50.32 CTDIvol (mGy) MEDICAL HISTORY : Hypertension. SURGICAL HISTORY : None. ENCOUNTER: Initial ACUITY: 1 day PAIN SCALE: 1/10 LOCATION: cranial TECHNIQUE: Multiple contiguous axial images were obtained of the head. Using automated exposure control and adj ustment of the mA and/or kV according to patient size, radiation dose was kept as low as reasonably a chievable to obtain optimal diagnostic quality images. FINDINGS: There is no evidence for intracranial hemorrhage, mass effect, mass lesions, edema, or extra-axial fl uid collections. The visualized bony structures appear intact. The ventricles are normal size for t he patient's age. There are no signs of acute infarction for technique. CONCLUSION: Unremarkable study. Raquel Duron MD on February 14, 2017 at 19:03 Board Certified Radiologist. This report was verified electronically.
--- NOTE | 2017-02-14 19:55 | PD ---
Data Data Last Documented VS Vital Signs Date Time Temp Pulse Resp B/P Pulse Ox O2 Delivery O2 Flow Rate FiO2 02/14/17 18:05 80 128/71 02/14/17 18:05 Nasal Cannula 02/14/17 18:05 16 02/14/17 17:46 98 2 02/14/17 16:55 98.2 Orders Electrocardiogram (02/14/17 17:54) Basic Metabolic Panel (Bmp) (02/14/17 17:54) Ckmb (Isoenzyme) Profile (02/14/17 17:54) Complete Blood Count With Diff (02/14/17 17:54) Magnesium (Mg) (02/14/17 17:54) Prothrombin Time / Inr (Pt) (02/14/17 17:54) Act Partial Throm Time (Ptt) (02/14/17 17:54) Troponin I (02/14/17 17:54) Chest, Single Ap (02/14/17 17:54) Ecg Monitoring (02/14/17 17:54) Bilateral Bp Monitoring (02/14/17 17:54) Iv Access Insert/Monitor (02/14/17 17:54) Oximetry (02/14/17 17:54) Oxygen Administration (02/14/17 17:54) Sodium Chloride 0.9% Flush (Ns Flush) (02/14/17 18:00) Ct Brain W/O Iv Contrast(Rout) (02/14/17 17:54) CKMB (02/14/17 18:00) CKMB% (02/14/17 18:00) Admit Order (Ed Use Only) (02/14/17 ) Diet Heart Healthy (02/15/17 Breakfast) Vital Signs (Adult) PONCE.Q4H (02/14/17 19:50) Document Analyst / Telemetry PONCE.Q8H (02/14/17 19:50) Troponin I (02/15/17 00:00) Troponin I (02/15/17 06:00) Ondansetron Inj (Zofran Inj) (02/14/17 20:00) Albuterol Hfa Inh (Proair Hfa Inh) (02/14/17 20:00) Aspirin Chew (Aspirin Chew) (02/15/17 09:00) Atorvastatin (Lipitor) (02/15/17 09:00) Fluticasone Philippe Spr (Flonase Philippe Spr) (02/14/17 21:00) Furosemide (Lasix) (02/15/17 09:00) Gabapentin (Neurontin) (02/15/17 09:00) Isosorbide Mononitrate (Imdur) (02/15/17 07:00) Pantoprazole (Protonix) (02/15/17 09:00) Prasugrel (Effient) (02/15/17 09:00) Labs Laboratory Tests Test 02/14/17 18:00 White Blood Count 7.1 TH/MM3 Red Blood Count 4.45 MIL/MM3 Hemoglobin 12.0 GM/DL Hematocrit 36.8 % Mean Corpuscular Volume 82.7 FL Mean Corpuscular Hemoglobin 27.0 PG Mean Corpuscular Hemoglobin 32.6 % Concent Red Cell Distribution Width 16.6 % Platelet Count 230 TH/MM3 Mean Platelet Volume 8.9 FL Neutrophils (%) (Auto) 76.6 % Lymphocytes (%) (Auto) 11.4 % Monocytes (%) (Auto) 9.3 % Eosinophils (%) (Auto) 2.1 % Basophils (%) (Auto) 0.6 % Neutrophils # (Auto) 5.5 TH/MM3 Lymphocytes # (Auto) 0.8 TH/MM3 Monocytes # (Auto) 0.7 TH/MM3 Eosinophils # (Auto) 0.1 TH/MM3 Basophils # (Auto) 0.0 TH/MM3 CBC Comment DIFF FINAL Differential Comment Prothrombin Time 10.5 SEC Prothromb Time International 1.0 RATIO Ratio Activated Partial 31.4 SEC Thromboplast Time Sodium Level 142 MEQ/L Potassium Level 4.3 MEQ/L Chloride Level 106 MEQ/L Carbon Dioxide Level 28.2 MEQ/L Anion Gap 8 MEQ/L Blood Urea Nitrogen 15 MG/DL Creatinine 0.85 MG/DL Estimat Glomerular Filtration 92 ML/MIN Rate Random Glucose 108 MG/DL Calcium Level 9.3 MG/DL Magnesium Level 2.5 MG/DL Total Creatine Kinase 136 U/L Creatine Kinase MB 2.7 NG/ML Troponin I LESS THAN 0.02 NG/ML MDM Supervised Visit with ZARI: No Narrative Course Patient was initially seen by Dr. Castro, signed out to me to follow-up on results of CT had and admit. Patient with a history of CAD, recent interventions, history of noncompliance of medications, as well as frequent falls, chronic pain, and syncopal episodes. Patient endorses intermittent crushing chest pain similar to previous episodes with associated syncopal episodes. Patient's been evaluated for these in the past. Studies show: CBC is remarkable for mild anemia CMP is unremarkable Troponins negative Coags unremarkable Chest x-ray negative FINAL: Patient with a history of chest pain syncope falls and chronic pain, here with the same, we'll plan on admission for observation for serial cardiac enzymes and monitoring. Diagnosis Primary Impression: Chest pain Additional Impressions: CAD (coronary artery disease) Hyperlipidemia Syncope Calvin Taylor MD Feb 14, 2017 19:55
[2017-02-14] MEDS ORDERED: ALBUTEROL SULFATE 90 MCG/ACT HFA 8 GM INHALER INH PRN (20:00)
[2017-02-14] MEDS: FLUTICASONE PROPIONATE 50 MCG/ACT 16 GM NASAL SPRAY NASAL SCH (22:10)
[2017-02-15] VITALS (7 sets, daily range): BP systolic 111–137; BP diastolic 67–76; PULSE 76–89; RESP 18–20; TEMP 97.6–98; O2SAT 94–97
--- NOTE | 2017-02-15 03:40 | HHI.HP ---
HPI Service [facility] Primary Care Physician No Primary Care Physician Admission Diagnosis chest pain, syncope Diagnoses: (1) Chest pain (2) Syncope Chief Complaint: Syncope and chest pain Travel History International Travel<30 Days: No Contact w/Intl Traveler <30 Da: No Traveled to Known Affected Are: No History of Present Illness Mr. Zazueta is a 61 year-old male with multiple ER visits and admissions since August 2016 and a history of coronary artery disease requiring bypass surgery and 2 stents placed this year, hypertension, chronic neck and back pain, and hyperlipidemia who presented complaining of syncopal episode and chest pain. He follows with plant facilities technician Dr. Perez though he says he has not seen her lately. The patient is seen in the CDU. He states that he experienced syncope with collapse and has been having chest pain that he describes as sharp and located substernally. He denies shortness of breath or dizziness. He reports having a history of a stent placed November 13 and states he's had 5 stents total as well as a CABG with 2 vessel bypass. He says he has been having syncopal episodes for the past one and half months. He says he was unconscious for a few minutes and hit his head when he fell. He reports vomiting blood 02/13/17 that was black in color and has been having mid abdominal stomach pain for about a week. He states he had 3 episodes. He denies any history of ulcers or stomach problems and does not know if he's ever had an endoscopy. He does not know if his stool has been dark. He denies fever or cough. He is requesting pain medication and states he takes Roxicodone 30 mg for chronic pain. Review of Systems Except as stated in HPI: all other systems reviewed are Neg Past Family Social History Past Medical History Chronic pain from multiple disc injuries in his neck and back Hyperlipidemia Hypertension COPD CHF Neuropathy Coronary artery disease status post CABG 2 in 2011 and stent placement 11/13/16 . Past Surgical History CABG 2 in 2012 Stent placement . Reported Medications Current Medications Sodium Chloride (NS Flush) 2 ml UNSCH PRN IVF FLUSH AFTER USING IV ACCESS; Start 02/14/17 at 18:00 Ondansetron HCl (Zofran Inj) 4 mg Q8HR PRN IV PUSH NAUSEA; Start 02/14/17 at 20: 00 Albuterol Sulfate (Proair Hfa Inh) 2 puff Q6HR PRN INH SOB/WHEEZING; Start 02/14 at 20:00 Aspirin (Aspirin Chew) 81 mg DAILY CHEW ; Start 02/15/17 at 09:00 Atorvastatin Calcium (Lipitor) 80 mg DAILY PO ; Start 02/15/17 at 09:00 Fluticasone Propionate (Flonase Philippe Spr) 1 spray BID NASAL Last administered on 02/14/17t 22:10; Start 02/14/17 at 21:00 Furosemide (Lasix) 20 mg DAILY PO ; Start 02/15/17 at 09:00 Gabapentin (Neurontin) 600 mg TID PO ; Start 02/15/17 at 09:00 Isosorbide Mononitrate (Imdur) 15 mg DAILY@07 PO ; Start 02/15/17 at 07:00 Pantoprazole Sodium (Protonix) 40 mg DAILY PO ; Start 02/15/17 at 09:00; Status Future Hold Prasugrel (Effient) 10 mg DAILY PO ; Start 02/15/17 at 09:00; Status Future Hold Miscellaneous 1 ea 1 ea UNSCH PRN OTHER SEE LABEL COMMENTS; Start 02/15/17 at 07 :00 Sodium Chloride (NS 1000 ml Inj) 1,000 ml @ 100 mls/hr Q10H IV ; Start 02/15/17 at 03:45 Pantoprazole Sodium (Protonix Inj) 40 mg Q24H IV PUSH ; Start 02/15/17 at 04:00 . Allergies: Coded Allergies: Penicillin (Verified Allergy, Unknown, Hives, 02/14/17) Toradol (Verified Allergy, Unknown, 02/14/17) Active Ordered Medications Current Medications Sodium Chloride (NS Flush) 2 ml UNSCH PRN IVF FLUSH AFTER USING IV ACCESS; Start 02/14/17 at 18:00 Ondansetron HCl (Zofran Inj) 4 mg Q8HR PRN IV PUSH NAUSEA; Start 02/14/17 at 20: 00 Albuterol Sulfate (Proair Hfa Inh) 2 puff Q6HR PRN INH SOB/WHEEZING; Start 02/14 at 20:00 Aspirin (Aspirin Chew) 81 mg DAILY CHEW ; Start 02/15/17 at 09:00 Atorvastatin Calcium (Lipitor) 80 mg DAILY PO ; Start 02/15/17 at 09:00 Fluticasone Propionate (Flonase Philippe Spr) 1 spray BID NASAL Last administered on 02/14/17t 22:10; Start 02/14/17 at 21:00 Furosemide (Lasix) 20 mg DAILY PO ; Start 02/15/17 at 09:00 Gabapentin (Neurontin) 600 mg TID PO ; Start 02/15/17 at 09:00 Isosorbide Mononitrate (Imdur) 15 mg DAILY@07 PO ; Start 02/15/17 at 07:00 Pantoprazole Sodium (Protonix) 40 mg DAILY PO ; Start 02/15/17 at 09:00; Status Future Hold Prasugrel (Effient) 10 mg DAILY PO ; Start 02/15/17 at 09:00; Status Future Hold Miscellaneous 1 ea 1 ea UNSCH PRN OTHER SEE LABEL COMMENTS; Start 02/15/17 at 07 :00 Sodium Chloride (NS 1000 ml Inj) 1,000 ml @ 100 mls/hr Q10H IV ; Start 02/15/17 at 03:45 Pantoprazole Sodium (Protonix Inj) 40 mg Q24H IV PUSH ; Start 02/15/17 at 04:00 . Family History [place] 42 Mother [place] at [place] 92 . Social History Tobacco: quit smoking a month ago Alcohol: denies . Physical Exam Vital Signs Vital Signs Date Time Temp Pulse Resp B/P Pulse Ox O2 Delivery O2 Flow Rate FiO2 02/14/17 23:25 81 02/14/17 23:07 97.8 87 18 101/55 92 02/14/17 22:06 87 16 97/69 98 Room Air 02/14/17 20:10 95 16 122/62 96 Room Air 02/14/17 18:05 80 128/71 02/14/17 18:05 Nasal Cannula 02/14/17 18:05 80 16 124/75 02/14/17 17:46 84 20 130/75 98 Nasal Cannula 2 02/14/17 17:40 84 20 99 Nasal Cannula 2 02/14/17 16:55 98.2 85 16 139/86 99 Physical Exam GENERAL: This is a well-nourished, well-developed patient, in no apparent distress. SKIN: No rashes, ecchymoses or lesions. Cool and dry. HEAD: Atraumatic. Normocephalic. EYES: No scleral icterus. No injection or drainage. ENT: Nose without bleeding, purulent drainage. NECK: Trachea midline. No JVD or lymphadenopathy. CARDIOVASCULAR: Regular rate and rhythm without murmurs, gallops, or rubs. RESPIRATORY: Clear to auscultation. Breath sounds equal bilaterally. No wheezes , rales, or rhonchi. GASTROINTESTINAL: Abdomen soft, diffuse abdominal pain with palpation. Not distended. No guarding. MUSCULOSKELETAL: Extremities without clubbing, cyanosis, or edema. No calf tenderness. No chest wall pain. NEUROLOGICAL: Awake and alert and oriented. . Laboratory Laboratory Tests Test 02/14/17 02/15/17 18:00 00:14 White Blood Count 7.1 Red Blood Count 4.45 Hemoglobin 12.0 Hematocrit 36.8 Mean Corpuscular Volume 82.7 Mean Corpuscular Hemoglobin 27.0 Mean Corpuscular Hemoglobin 32.6 Concent Red Cell Distribution Width 16.6 Platelet Count 230 Mean Platelet Volume 8.9 Neutrophils (%) (Auto) 76.6 Lymphocytes (%) (Auto) 11.4 Monocytes (%) (Auto) 9.3 Eosinophils (%) (Auto) 2.1 Basophils (%) (Auto) 0.6 Neutrophils # (Auto) 5.5 Lymphocytes # (Auto) 0.8 Monocytes # (Auto) 0.7 Eosinophils # (Auto) 0.1 Basophils # (Auto) 0.0 CBC Comment DIFF FINAL Differential Comment Prothrombin Time 10.5 Prothromb Time International 1.0 Ratio Activated Partial 31.4 Thromboplast Time Sodium Level 142 Potassium Level 4.3 Chloride Level 106 Carbon Dioxide Level 28.2 Anion Gap 8 Blood Urea Nitrogen 15 Creatinine 0.85 Estimat Glomerular Filtration 92 Rate Random Glucose 108 Calcium Level 9.3 Magnesium Level 2.5 Total Creatine Kinase 136 Creatine Kinase MB 2.7 Troponin I LESS THAN 0.02 LESS THAN 0.02 Result Diagram: 02/14/17 1800 02/14/17 1800 Imaging Last Impressions Head CT 02/14/17 [id number] Signed Impressions: Service Date/Time: February 18:34 - CONCLUSION: Unremarkable study. KJohn Paul Duron MD Chest X-Ray 02/14/17 [id number] Signed Impressions: Service Date/Time: February 18:08 - CONCLUSION: No acute cardiopulmonary disease. Raquel Duron MD . Assessment and Plan Problem List: (1) Chest pain ICD Code: R07.9 Status: Acute (2) Syncope ICD Code: R55 Status: Acute Assessment and Plan Chest Pain Syncope, recurrent - Continuous cardiac telemetry to monitor for arrhythmia - Serial troponin I measurement - follow results - negative chest xray - head CT negative Hematemesis - Reports vomiting dark blood 3 on 02/13/2017 - Protonix 40 mg IV push every 4 hours - NPO - Consult gastroenterology - assistance appreciated - Hemoglobin was 13.9 on 01/30 and is 12.0 today - Check serial H&H and follow trends - Transfuse if needed DVT prophylaxis - SCDs Written by Pushpa Phelan, acting as scribe for Dr. Tello on 02/15/17 at 03:39. patient was seen and examined today. 61 y/o male with history of CAD and recurrent syncope who presented to ER with chest pain, syncope and hematemesis. continue to monitor on telemetry- check the serial cardiac enzymes. will monitor H/H- start on PPI and consult GI. Discussed Condition With ER physician and patient . Pushpa Phelan Feb 15, 2017 03:40 Sandrine Tello MD Feb 15, 2017 03:47
[2017-02-15] MEDS: PANTOPRAZOLE SODIUM 40 MG VIAL IV PUSH SCH (05:58)
[2017-02-15] MEDS: SODIUM CHLOR 0.9% 1000 ML INJ 1,000 ML IV SCH ×3 (05:59→23:28)
[2017-02-15] MEDS ORDERED: PILL SPLITTER OTHER PRN (07:00)
[2017-02-15] MEDS ORDERED: ISOSORBIDE MONONITRATE 30 MG TAB PO SCH (07:00)
[2017-02-15 07:02] LABS: HEMATOCRIT 37.1 % (39.0-51.0)
[2017-02-15] MEDS ORDERED: PRASUGREL 10 MG TAB PO SCH (09:00)
[2017-02-15] MEDS ORDERED: FUROSEMIDE 20 MG TAB PO SCH (09:00)
[2017-02-15] MEDS ORDERED: ASPIRIN 81 MG CHEW TAB CHEW SCH (09:00)
[2017-02-15] MEDS ORDERED: ATORVASTATIN 80 MG TAB PO SCH (09:00)
[2017-02-15] MEDS ORDERED: PANTOPRAZOLE SOD 40 MG DELAYED RELEASE TAB PO SCH (09:00)
[2017-02-15] MEDS: FLUTICASONE PROPIONATE 50 MCG/ACT 16 GM NASAL SPRAY NASAL SCH ×2 (09:00→21:00)
--- NOTE | 2017-02-15 09:42 | PD.CONS ---
HPI History of Present Illness This is a 61 year old male who came to the ER for evaluation of nausea/vomiting consisting of black emesis and atypical chest pain. He was evaluated with serial troponin's and EKGs and ACS was ruled out. GI has been consulted for nausea/vomiting with hematemesis. The patient reports he has a long hx of intermittent nausea/vomiting, reflux, and reports that he started having hematemesis 2 days ago. He reports that this consisted of a large amount of black coffee ground emesis and that he had 3 episodes. He has associated LUQ pain that he describes as a constant ache in his LUQ with no radiation. He denies any relation to food intake. He also has constant nausea. He has GERD and reports that he has daily symptoms if he does not take his Protonix, but as long as he takes this, that his reflux is controlled. He also reports decreased appetite with a 20 lb weight loss over the past few months. He denies any bowel changes- no melena or hematochezia. Denies PUD or NSAID use. EGD (11/29/16)---> LA Class A esophagitis noted, erythematous gastritis in the gastric antrum, duodenal inflammation was found in the bulb and second portion of the duodenum, retroflexed views revealed no abnormalities, circumferential colitis was found in the rectum, mucosa was erythematous, ulcerated and had granularity and superficial ulcers, retroflexed views revealed medium internal hemorrhoids, revealed external hemorrhoids. (Geovanna Villalobos) PFSH Past Medical History Chronic pain from multiple disc injuries in his neck and back Hyperlipidemia Hypertension COPD CHF Neuropathy Coronary artery disease status post CABG 2 in 2011 and stent placement 11/13/16 Gastritis Hx colitis Past Surgical History CABG 2 in 2011 Stent placement EGD/Colonoscopy (Geovanna Villalobos) Coded Allergies: Penicillin (Verified Allergy, Unknown, Hives, 02/14/17) Toradol (Verified Allergy, Unknown, 02/14/17) Medications Allergies Coded Allergies Type Severity Reaction Last Updated Verified Penicillin Allergy Unknown Hives 02/14/17 Yes Toradol Allergy Unknown 02/14/17 Yes Active Scripts Medications Dose Route/Sig Days Date Category Dose Instructions Oxycodone (Oxycodone HCl) 30 Mg Tab 30 Mg PO Q6H PRN 02/14/17 Reported Gabapentin 600 Mg Tab 600 Mg PO TID 02/05/17 Rx Isosorbide Mononitrate ER (Isosorbide Mononitrate) 30 Mg Ronny 15 Mg PO DAILY@07 02/05/17 Rx Furosemide 20 Mg Tab 20 Mg PO DAILY 02/05/17 Rx Effient (Prasugrel) 10 Mg Tab 10 Mg PO DAILY 02/05/17 Rx Lipitor (Atorvastatin Calcium) 80 Mg Tab 80 Mg PO DAILY 02/05/17 Rx Aspirin 81 Mg Chew 81 Mg CHEW DAILY 02/05/17 Rx Alprazolam 1 Mg Tab 1 Mg PO BID 12/19/16 Reported Fluticasone Nasal Colo 50 Mcg/Act Naspr 1 Colo NASAL BID 12/11/16 Rx Ventolin Hfa 18 GM Inh (Albuterol Sulfate) 90 Mcg/Act Aer 2 Puff INH Q4-6H PRN 10/12/16 Rx Nitroglycerin SL (Nitroglycerin) 0.3 Mg Subl 0.3 Mg SL DIRECTED PRN 10/12/16 Rx ONE TABLET UNDER THE TONGUE NEEDED FOR CHEST PAIN, MAY REPEAT EVERY FIVE MINUTES FOR A TOTAL OF 3 DOSES OR CALL 911 IF NO RELIEF. Protonix (Pantoprazole Sodium) 40 Mg Tab 40 Mg PO DAILY 10/12/16 Rx Family History Father from [place] at age 42 Mother from [place] at age 92 Social History Tobacco: quit smoking a month ago Alcohol: denies (Geovanna Villalobos) Review of Systems Gastrointestinal: COMPLAINS OF: Abdominal pain, Nausea, Vomiting, Heartburn, DENIES: Black stools, Bloody stools, Constipation, Diarrhea Musculoskeletal: DENIES: Joint pain Hematologic/lymphatic: DENIES: Bruising Psychiatric: COMPLAINS OF: Confusion (Geovanna Villalobos) GI Exam Vitals I&O Vital Signs Date Time Temp Pulse Resp B/P Pulse Ox O2 Delivery O2 Flow Rate FiO2 02/15/17 08:17 97.6 89 18 124/74 94 02/15/17 04:09 98.0 84 18 137/76 97 02/14/17 23:25 81 02/14/17 23:07 97.8 87 18 101/55 92 02/14/17 22:06 87 16 97/69 98 Room Air 02/14/17 20:10 95 16 122/62 96 Room Air 02/14/17 18:05 80 128/71 02/14/17 18:05 Nasal Cannula 4/6/17 18:05 80 16 124/75 02/14/17 17:46 84 20 130/75 98 Nasal Cannula 2 02/14/17 17:40 84 20 99 Nasal Cannula 2 02/14/17 16:55 98.2 85 16 139/86 99 Imaging Last Impressions Head CT [id number]/[id number] Signed Impressions: Service Date/Time: February 18:34 - CONCLUSION: Unremarkable study. Raquel Duron MD Chest X-Ray [id number] Signed Impressions: Service Date/Time: February 18:08 - CONCLUSION: No acute cardiopulmonary disease. Raquel Duron MD Laboratory Test 02/14/17 02/15/17 02/15/17 18:00 00:14 05:58 White Blood Count 7.1 TH/MM3 Red Blood Count 4.45 MIL/MM3 Hemoglobin 12.0 GM/DL 12.3 GM/DL Hematocrit 36.8 % 37.1 % Mean Corpuscular Volume 82.7 FL Mean Corpuscular Hemoglobin 27.0 PG Mean Corpuscular Hemoglobin 32.6 % Concent Red Cell Distribution Width 16.6 % Platelet Count 230 TH/MM3 Mean Platelet Volume 8.9 FL Neutrophils (%) (Auto) 76.6 % Lymphocytes (%) (Auto) 11.4 % Monocytes (%) (Auto) 9.3 % Eosinophils (%) (Auto) 2.1 % Basophils (%) (Auto) 0.6 % Neutrophils # (Auto) 5.5 TH/MM3 Lymphocytes # (Auto) 0.8 TH/MM3 Monocytes # (Auto) 0.7 TH/MM3 Eosinophils # (Auto) 0.1 TH/MM3 Basophils # (Auto) 0.0 TH/MM3 CBC Comment DIFF FINAL Differential Comment Prothrombin Time 10.5 SEC Prothromb Time International 1.0 RATIO Ratio Activated Partial 31.4 SEC Thromboplast Time Sodium Level 142 MEQ/L Potassium Level 4.3 MEQ/L Chloride Level 106 MEQ/L Carbon Dioxide Level 28.2 MEQ/L Anion Gap 8 MEQ/L Blood Urea Nitrogen 15 MG/DL Creatinine 0.85 MG/DL Estimat Glomerular Filtration 92 ML/MIN Rate Random Glucose 108 MG/DL Calcium Level 9.3 MG/DL Magnesium Level 2.5 MG/DL Total Creatine Kinase 136 U/L Creatine Kinase MB 2.7 NG/ML Troponin I LESS THAN 0.02 LESS THAN 0.02 LESS THAN 0.02 NG/ML NG/ML NG/ML Physical Examination HEENT: Normocephalic; atraumatic; no jaundice. CHEST: CTA. CARDIAC: RRR ABDOMEN: Soft, nondistended, mild LUQ tenderness; no hepatosplenomegaly; bowel sounds are present in all four quadrants. EXTREMITIES: No clubbing, cyanosis, or edema. SKIN: Normal; no rash; no jaundice. PASTORAL COUNSELOR: No focal deficits; alert and oriented times three. (Geovanna Villalobos) Assessment and Plan Plan ASSESSMENT: - Reported Hematemesis. Pt reports long hx of constant nausea with 2 day hx of LUQ pain, nausea, and vomiting consisting of coffee ground emesis. He had 3 episodes, none since this admission. No hx of PUD. No use of NSAIDs. EGD (11/29/16)---> LA Class A esophagitis noted, erythematous gastritis in the gastric antrum, duodenal inflammation was found in the bulb and second portion of the duodenum, retroflexed views revealed no abnormalities, circumferential colitis was found in the rectum, mucosa was erythematous, ulcerated and had granularity and superficial ulcers, retroflexed views revealed medium internal hemorrhoids, revealed external hemorrhoids. HH stable 12.3/ 37.1. NPO. PPI - LUQ Pain, N/V. PPI. - Atypical chest pain. SErial enzymes negative. PLAN: - Plan for egd today - Obtain consents - NPO after MN - PPI - Monitor HH - Supportive care - Further recommendations to follow based on results of above - Pt seen and examined by Dr. Bunch and myself and this note is written on his behalf This is a 61 year old male who came to the ER for evaluation of nausea/vomiting consisting of black emesis and atypical chest pain. He was evaluated with serial troponin's and EKGs and ACS was ruled out. GI has been consulted for nausea/vomiting with hematemesis. The patient reports he has a long hx of intermittent nausea/vomiting, reflux, and reports that he started having hematemesis 2 days ago. He reports that this consisted of a large amount of black coffee ground emesis and that he had 3 episodes. He has associated LUQ pain that he describes as a constant ache in his LUQ with no radiation. He denies any relation to food intake. He also has constant nausea. He has GERD and reports that he has daily symptoms if he does not take his Protonix, but as long as he takes this, that his reflux is controlled. He also reports decreased appetite with a 20 lb weight loss over the past few months. He denies any bowel changes- no melena or hematochezia. Denies PUD or NSAID use. (Geovanna Villalobos) Physician Comments Seen and examined with PARKING GARAGE MANAGER< egd planned for today. Further recs to follow. Thank you (Falguni Bunch MD) Geovanna Villalobos Feb 15, 2017 09:42 Falguni Bunch MD Feb 15, 2017 11:47
[2017-02-15] MEDS: GABAPENTIN 300 MG CAP PO SCH ×3 (10:06→18:07)
[2017-02-15] MEDS: ONDANSETRON HCL 4 MG/2 ML VIAL IV PUSH PRN ×2 (10:07→18:07)
[2017-02-15] MEDS ORDERED: PROPOFOL 200 MG/20 ML AMP IV ONE (11:59)
--- NOTE | 2017-02-15 12:07 | GIPROC ---
[facility] [address] [facility]. [facility], [address] EGD PROCEDURE REPORT EXAM DATE: 02/15/2017 PATIENT NAME: Miguel A Zazueta MR #: [id number] BIRTHDATE: 1955 ATTENDING: Falguni Bunch MD ORDER #: [id number] TUBE AND MANIFOLD BUILDER: Sesar Kiser and Samir Harp STATUS: inpatient INDICATIONS: The patient is a 61 yr old male here for an EGD due to chest pain, dyspepsia, and hematemesis PROCEDURE PERFORMED: EGD w/ biopsy MEDICATIONS: None and Per Anesthesia. TOPICAL ANESTHETIC: CONSENT: The patient understands the risks and benefits of the procedure and understands that these risks include, but are not limited to: sedation, allergic reaction, infection, perforation and/or bleeding. Alternative means of evaluation and treatment include, among others: physical exam, x-rays, and/or surgical intervention. The patient elects to proceed with this endoscopic procedure. medical equipment was checked for proper function. Hand hygiene and appropriate measures for infection prevention was taken. After the risks, benefits and alternatives of the procedure were thoroughly explained, Informed consent was verified, confirmed and timeout was successfully executed by the treatment team. The patient was anesthetized with topical anesthesia and the Pentax [id number] endoscope was introduced through the mouth and advanced to the second portion of the duodenum. Retroflexed views revealed no abnormalities The gastroscope was then slowly withdrawn and removed. ESOPHAGUS: There was LA Class A esophagitis noted. A biopsy was performed using cold forceps. Sample sent for histology. STOMACH: There was mild gastritis in the gastric antrum. DUODENUM: Mild duodenal inflammation was found in the bulb and second portion of the duodenum. ADVERSE EVENTS: There were no complications. IMPRESSIONS: 1. There was LA Class A esophagitis noted; biopsy was performed 2. There was mild gastritis in the gastric antrum 3. Duodenal inflammation was found in the bulb and second portion of the duodenum 4. Retroflexed views revealed no abnormalities RECOMMENDATIONS: 1. Await biopsy results. Biopsy results will not be ready for 7-10 days. If you don't hear from us in two weeks, call our office for biopsy results. 2. Anti-reflux regimen 3. Continue PPI 4. Avoid NSAIDS PATIENT CONDITION: stable DISPOSITION: Inpatient REPEAT EXAM: Return 1 year EGD pending biopsy results Falguni Bunch MD eSigned: Falguni Bunch MD 02/15/2017 12:07 PM cc: PATIENT NAME: Miguel A Zazueta MR#: [id number]
--- NOTE | 2017-02-15 13:44 | EKG ---
Date Performed: 02/14/2017 Time Performed: 17:04:20 PTAGE: 61 years EKG: Sinus rhythm POSSIBLE LEFT ATRIAL ENLARGEMENT BORDERLINE ECG Compared to prior tracing no significant change PREVIOUS TRACING 01/30/2017 17.27.17 DOCTOR: Gurpreet Sommers Interpretating Date/Time 02/15/2017 13:38:39
--- NOTE | 2017-02-15 13:45 | EKG ---
Date Performed: 02/15/2017 Time Performed: 06:48:38 PTAGE: 61 years EKG: Sinus rhythm NORMAL ECG Since PREVIOUS TRACING , no significant change noted PREVIOUS TRACING 02/15/2017 00.22.3 2 DOCTOR: Gurpreet Sommers Interpretating Date/Time 02/15/2017 13:39:44
--- NOTE | 2017-02-15 13:45 | EKG ---
Date Performed: 02/15/2017 Time Performed: 00:22:32 PTAGE: 61 years EKG: Sinus rhythm POSSIBLE LEFT ATRIAL ENLARGEMENT BORDERLINE ECG Compared to prior tracing no significant change PREVIOUS TRACING 02/14/2017 05.04.20 DOCTOR: Gurpreet Sommers Interpretating Date/Time 02/15/2017 13:39:07
[2017-02-16] MEDS: PANTOPRAZOLE SODIUM 40 MG VIAL IV PUSH SCH (04:00)
[2017-02-17] MEDS ORDERED: NAPR500T PO (18:24)
== END 2017-02-16 07:02 | disposition left against medical advice (07) ==
LOC: NEPC 16:53 → NEDA 19:50 → NEPGCP 22:26
PROVIDERS: ADMIT Hospitalist; ATTEND Hospitalist
DX: K29.70 Gastritis, unspecified, without bleeding (principal); K29.80 Duodenitis without bleeding; K21.0 Gastro-esophageal reflux disease with esophagitis; I25.10 Atherosclerotic heart disease of native coronary artery without angina pectoris; R07.89 Other chest pain; G89.29 Other chronic pain; M54.2 Cervicalgia; M54.9 Dorsalgia, unspecified; E78.5 Hyperlipidemia, unspecified; J44.9 Chronic obstructive pulmonary disease, unspecified; I11.0 Hypertensive heart disease with heart failure; I50.9 Heart failure, unspecified; G62.9 Polyneuropathy, unspecified; M19.90 Unspecified osteoarthritis, unspecified site; F41.9 Anxiety disorder, unspecified; F32.9 Major depressive disorder, single episode, unspecified; I25.2 Old myocardial infarction; E78.00 Pure hypercholesterolemia, unspecified; Z79.51 Long term (current) use of inhaled steroids; Z79.82 Long term (current) use of aspirin; Z88.0 Allergy status to penicillin; Z95.1 Presence of aortocoronary bypass graft; Z88.8 Allergy status to other drugs, medicaments and biological substances; Z87.891 Personal history of nicotine dependence; Z95.5 Presence of coronary angioplasty implant and graft
CPT/HCPCS: 00740; 43239; 70450; 71010; 80048; 82550; 82552; 83735; 84484; 85014; 85018; 85025; 85610; 85730; 88305; 93005; 99285; C9113; G0378; J2405; J7030

== ENCOUNTER 2017-02-16 07:06 | Emergency (ER) | payer OTHER ==
[~2017-02-16] VITALS: Ht 167.6 cm; Wt 68.0 kg
[~2017-02-16 07:06] MED LIST changes: +OXYC30TA PO
[2017-02-16 07:08] VITALS: BP 119/69; PULSE 85; RESP 20; TEMP 97.9; O2SAT 98
--- NOTE | 2017-02-16 07:46 | PD ---
HPI Chief Complaint: General Weakness Time Seen by Provider: 07:28 Travel History International Travel<30 days: No Contact w/Intl Traveler<30days: No Traveled to known affect area: No History of Present Illness HPI 61-year-old male complains of generalized malaise and weakness. Patient was admitted 2 days ago for chest pain or abdominal pain and nausea vomiting. Cardiac workup was negative. Patient had endoscopy yesterday and positive for esophagitis and gastritis. Patient was going to be discharged today. Patient left AMA early this morning and turnaround and request to be seen again. Patient denies any new problem. Patient states that he has generalized malaise and weakness. Patient denies any headache. Patient states that he has recurrent atypical chest pain and abdominal pain that is not new. Patient denies any fever chills. Patient denies any recent injury. PFSH Past Medical History Hx Anticoagulant Therapy: Yes (He does not know the name of the medication) Arthritis: Yes Asthma: No Autoimmune Disease: No Blood Disorders: No Anxiety: Yes Depression: Yes Heart Rhythm Problems: No Cancer: No Cardiac Catheterization: Yes Cardiovascular Problems: Yes High Cholesterol: Yes Chemotherapy: No Chest Pain: Yes Congestive Heart Failure: No COPD: No Cerebrovascular Accident: No Diabetes: No Diminished Hearing: No Endocrine: No Gastrointestinal Disorders: Yes GERD: Yes Genitourinary: No Headaches: No Hiatal Hernia: Yes Heparin Induced Thrombocytopen: No Hypertension: Yes Immune Disorder: No Implanted Vascular Access Dvce: Yes Kidney Stones: Yes Musculoskeletal: No Neurologic: Yes (multiple episodes of syncope) Psychiatric: No Reproductive: No Respiratory: Yes (COPD) Immunizations Current: Yes Migraines: Yes Myocardial Infarction: Yes Seizures: No Sickle Cell Disease: No Sleep Apnea: No Thyroid Disease: No Ulcer: No Past Surgical History Abdominal Surgery: No Body Medical Devices: STENTS Cardiac Surgery: Yes ( double cabg 2012 for stents) Coronary Artery Bypass Graft: Yes Ear Surgery: No Endocrine Surgery: No Eye Surgery: No Genitourinary Surgery: No Gynecologic Surgery: No Neurologic Surgery: No Oral Surgery: No Thoracic Surgery: Yes (HX of CABG x 2) Other Surgery: Yes (CABG, STENTING) Family History Family Myocardial Infarction: Yes Social History Alcohol Use: No Tobacco Use: No Substance Use: No Allergies-Medications (Allergen,Severity, Reaction): Coded Allergies: Penicillin (Verified Allergy, Unknown, Hives, 02/16/17) Toradol (Verified Allergy, Unknown, 02/16/17) Reported Meds & Prescriptions Reported Meds & Active Scripts Active Gabapentin 600 Mg Tab 600 Mg PO TID Isosorbide Mononitrate ER (Isosorbide Mononitrate) 30 Mg Ronny 15 Mg PO DAILY@07 Furosemide 20 Mg Tab 20 Mg PO DAILY Effient (Prasugrel) 10 Mg Tab 10 Mg PO DAILY Lipitor (Atorvastatin Calcium) 80 Mg Tab 80 Mg PO DAILY Aspirin 81 Mg Chew 81 Mg CHEW DAILY Fluticasone Nasal [place] 50 Mcg/Act Naspr 1 [place] NASAL BID Ventolin Hfa 18 GM Inh (Albuterol Sulfate) 90 Mcg/Act Aer 2 Puff INH Q4-6H PRN Nitroglycerin SL (Nitroglycerin) 0.3 Mg Subl 0.3 Mg SL DIRECTED PRN ONE TABLET UNDER THE TONGUE NEEDED FOR CHEST PAIN, MAY REPEAT EVERY FIVE MINUTES FOR A TOTAL OF 3 DOSES OR CALL 911 IF NO RELIEF. Protonix (Pantoprazole Sodium) 40 Mg Tab 40 Mg PO DAILY Reported Oxycodone (Oxycodone HCl) 30 Mg Tab 30 Mg PO Q6H PRN Alprazolam 1 Mg Tab 1 Mg PO BID Review of Systems General / Constitutional: No: Fever Eyes: No: Visual changes HENT: No: Headaches Cardiovascular: Positive: Chest Pain or Discomfort Respiratory: No: Shortness of Breath Gastrointestinal: Positive: Abdominal Pain Genitourinary: No: Dysuria Musculoskeletal: No: Pain Skin: No Rash Neurologic: No: Weakness Psychiatric: No: Depression Endocrine: No: Polydipsia Hematologic/Lymphatic: No: Easy Bruising Physical Exam Narrative GENERAL: Well-nourished, well-developed patient. SKIN: Focused skin assessment warm/dry. HEAD: Normocephalic. EYES: No scleral icterus. No injection or drainage. NECK: Supple, trachea midline. No JVD or lymphadenopathy. CARDIOVASCULAR: Regular rate and rhythm without murmurs, gallops, or rubs. RESPIRATORY: Breath sounds equal bilaterally. No accessory muscle use. GASTROINTESTINAL: Abdomen soft, non-tender, nondistended. MUSCULOSKELETAL: No cyanosis, or edema. BACK: Nontender without obvious deformity. No CVA tenderness. Neurologic exam normal. Data Data Last Documented VS Vital Signs Date Time Temp Pulse Resp B/P Pulse Ox O2 Delivery O2 Flow Rate FiO2 02/16/17 07:33 80 18 100 Room Air 02/16/17 07:08 97.9 119/69 [facility] Medical Decision Making Medical Screen Exam Complete: Yes Emergency Medical Condition: No Differential Diagnosis Differential diagnosis including recurrent atypical chest pain and abdominal pain, electrolyte imbalance, dehydration. Narrative Course 61-year-old male with generalized malaise and weakness. Patient was admitted 2 days ago and pending discharge this morning. Patient left AMA this morning and signed back in again and complained of generalized malaise and weakness. Patient has stable vital signs. Examination unchanged from inpatient examination. Patient's awake and alert oriented 3. No acute distress. Patient's ambulating without difficulty. Patient will be discharged home. Diagnosis Primary Impression: Atypical chest pain Additional Impressions: Recurrent abdominal pain Adjustment disorder Qualified Code: F43.20 - Adjustment disorder, unspecified type Patient Instructions: General Instructions Additional Instructions: Continue with medications as directed including Protonix. Follow-up with local physician. Return if worse. Med/Other Pt SpecificInfo: No Change to Meds Disposition: 01 DISCHARGE HOME Condition: Stable Vernon Weber MD Feb 16, 2017 07:45
[2017-02-17] MEDS ORDERED: NAPR500T PO (18:24)
== END 2017-02-16 07:55 | disposition home or self-care (01) ==
LOC: NEPC 07:06
DX: R07.89 Other chest pain (principal); R10.9 Unspecified abdominal pain; F43.20 Adjustment disorder, unspecified; E78.00 Pure hypercholesterolemia, unspecified; I10 Essential (primary) hypertension; K21.9 Gastro-esophageal reflux disease without esophagitis; J44.9 Chronic obstructive pulmonary disease, unspecified; I25.2 Old myocardial infarction; Z87.442 Personal history of urinary calculi; Z79.01 Long term (current) use of anticoagulants
CPT/HCPCS: 99284

== ENCOUNTER 2017-02-17 16:04 | Emergency (ER) | payer OTHER ==
[~2017-02-17] VITALS: Ht 167.6 cm; Wt 70.0 kg
[2017-02-17 16:16] VITALS: BP 172/92; PULSE 83; RESP 18; TEMP 97.9; O2SAT 98
--- NOTE | 2017-02-17 16:24 | PD ---
HPI Chief Complaint: Syncope/Near-Syncope Time Seen by Provider: 16:24 Travel History International Travel<30 days: No Contact w/Intl Traveler<30days: No Traveled to known affect area: No History of Present Illness HPI 61-year-old male with a history of CAD, hypertension, chronic neck and back pain , recurrent syncope presents to the emergency department by EMS for evaluation of syncope with fall. Per EMS report the patient was walking up the stairs to look at an apartment when he had a syncopal episode at the top of the stairs falling and rolling down the stairs approximately 10 feet. Reportedly hit his head and lost consciousness for a few seconds. The patient is complaining of headache, neck pain, back pain, bilateral feet pain and right wrist pain. States he has some tingling in his right hand. Complains of some mild dizziness. Denies nausea, vomiting, vision changes, chest pain, shortness of breath, abdominal pain, saddle anesthesia, bowel or bladder incontinence. States that he takes anticoagulation but is unsure the name of the medication. No other complaints. PFSH Past Medical History Hx Anticoagulant Therapy: Yes (He does not know the name of the medication) Arthritis: Yes Asthma: No Autoimmune Disease: No Blood Disorders: No Anxiety: Yes Depression: Yes Heart Rhythm Problems: No Cancer: No Cardiac Catheterization: Yes Cardiovascular Problems: Yes High Cholesterol: Yes Chemotherapy: No Chest Pain: Yes Congestive Heart Failure: No COPD: No Cerebrovascular Accident: No Diabetes: No Diminished Hearing: No Endocrine: No Gastrointestinal Disorders: Yes GERD: Yes Genitourinary: No Headaches: No Hiatal Hernia: Yes Heparin Induced Thrombocytopen: No Hypertension: Yes Immune Disorder: No Implanted Vascular Access Dvce: Yes Kidney Stones: Yes Musculoskeletal: No Neurologic: Yes (multiple episodes of syncope) Psychiatric: No Reproductive: No Respiratory: Yes (COPD) Immunizations Current: Yes Migraines: Yes Myocardial Infarction: Yes Seizures: No Sickle Cell Disease: No Sleep Apnea: No Thyroid Disease: No Ulcer: No Past Surgical History Abdominal Surgery: No Body Medical Devices: STENTS Cardiac Surgery: Yes ( double cabg 2012 / 2015 for stents) Coronary Artery Bypass Graft: Yes Ear Surgery: No Endocrine Surgery: No Eye Surgery: No Genitourinary Surgery: No Gynecologic Surgery: No Neurologic Surgery: No Oral Surgery: No Thoracic Surgery: Yes (HX of CABG x 2) Other Surgery: Yes (CABG, STENTING) Social History Alcohol Use: No Tobacco Use: No Substance Use: No Allergies-Medications (Allergen,Severity, Reaction): Coded Allergies: Penicillin (Verified Allergy, Unknown, Hives, 02/16/17) Toradol (Verified Allergy, Unknown, 02/16/17) Reported Meds & Prescriptions Reported Meds & Active Scripts Active Naproxen 500 Mg Tab 500 Mg PO BID 7 Days Gabapentin 600 Mg Tab 600 Mg PO TID Isosorbide Mononitrate ER (Isosorbide Mononitrate) 30 Mg Ronny 15 Mg PO DAILY@07 Furosemide 20 Mg Tab 20 Mg PO DAILY Effient (Prasugrel) 10 Mg Tab 10 Mg PO DAILY Lipitor (Atorvastatin Calcium) 80 Mg Tab 80 Mg PO DAILY Aspirin 81 Mg Chew 81 Mg CHEW DAILY Fluticasone Nasal [place] 50 Mcg/Act Naspr 1 [place] NASAL BID Ventolin Hfa 18 GM Inh (Albuterol Sulfate) 90 Mcg/Act Aer 2 Puff INH Q4-6H PRN Nitroglycerin SL (Nitroglycerin) 0.3 Mg Subl 0.3 Mg SL DIRECTED PRN ONE TABLET UNDER THE TONGUE NEEDED FOR CHEST PAIN, MAY REPEAT EVERY FIVE MINUTES FOR A TOTAL OF 3 DOSES OR CALL 911 IF NO RELIEF. Protonix (Pantoprazole Sodium) 40 Mg Tab 40 Mg PO DAILY Reported Oxycodone (Oxycodone HCl) 30 Mg Tab 30 Mg PO Q6H PRN Alprazolam 1 Mg Tab 1 Mg PO BID Review of Systems Except as stated in HPI: all other systems reviewed are Neg Physical Exam Narrative GENERAL: Well-nourished and well-developed male patient in no acute distress. Backboarded with cervical collar in place. SKIN: Forehead abrasion. No obvious lacerations. HEAD: Normocephalic and atraumatic. No bony point tenderness or crepitus noted throughout the scalp and facial bones. EYES: No scleral icterus, injection, or drainage. PERRLA. EOMI. No hyphema present. ENT: No septal hematoma or hemotympanum noted. Oropharynx is clear and the airway is patent. NECK: Supple and the trachea is midline. Midline cervical spine tenderness to palpation. No obvious deformities or crepitus. CARDIOVASCULAR: Regular rate and rhythm. RESPIRATORY: Breath sounds are equal bilaterally with no accessory muscle use, wheezing, rhonchi, or crackles. GASTROINTESTINAL: Abdomen is soft, non-tender, and nondistended. MUSCULOSKELETAL: No obvious deformities, swelling, cyanosis, or ecchymosis is present throughout the upper and lower extremities. Patient has full range of motion without any signs of neurovascular compromise. Strength 5/5 upper and lower extremities equal bilaterally. BACK: Upper thoracic and lower lumbar spine tenderness to palpation. No obvious deformities, bony point tenderness, or crepitus noted throughout the thoracic and lumbar vertebrae. NEUROLOGICAL: Awake, alert, and oriented. Normal speech and gait. Cranial nerves are grossly intact. Data Data Last Documented VS Vital Signs Date Time Temp Pulse Resp B/P Pulse Ox O2 Delivery O2 Flow Rate FiO2 02/17/17 18:21 85 16 161/84 98 Room Air 02/17/17 16[address] Brain W/O Iv Contrast(Rout) (02/17/17 16:19) Ct Cerv Spine W/O Contrast (02/17/17 16:19) Ct Thor Spine W/O Contrast (02/17/17 16:19) Ct Lumb Spine W/O Contrast (02/17/17 16:19) Electrocardiogram (02/17/17 16:19) Ecg Monitoring (02/17/17 16:19) Iv Access Insert/Monitor (02/17/17 16:19) Oximetry (02/17/17 16:19) Sodium Chloride 0.9% Flush (Ns Flush) (02/17/17 16:30) Chest, Pa & Lat (02/17/17 16:19) Knee, Complete (4vws) (02/17/17 16:19) Wrist, Complete (Pmg6psy) (02/17/17 16:19) Foot, Complete ([id number]) (02/17/17 16:22) Foot, Complete ([id number]) (02/17/17 16:22) MDM Medical Decision Making Medical Screen Exam Complete: Yes Emergency Medical Condition: Yes Differential Diagnosis Contusion versus minor head injury versus intracranial hemorrhage versus discogenic pain versus fracture Narrative Course 61-year-old male is brought to the emergency department by EMS for evaluation of syncope and fall down the stairs. Positive head trauma, positive loss of consciousness. Patient is afebrile, vital signs are stable. Patient is awake, alert and oriented with no focal neurologic deficits. Patient is placed on cardiac telemetry and pulse oximetry monitoring. X-ray and CT imaging has been ordered and is pending. Patient has been seen here in our emergency department multiple times over the past several weeks for recurrent syncope and frequent falls. He had labs performed just 3 days ago at our facility which were unremarkable, had recent troponins trended out just 2 days ago that were unremarkable. I think it would be low yield to repeat these labs at this time. EKG shows normal sinus rhythm with no acute ST elevations or depressions. X-ray of the left foot is negative for any acute abnormalities. X-ray of the right foot is negative for any acute abnormalities. Chest x-ray is negative for any acute abnormalities. X-ray of the left knee is negative for any acute abnormalities. X-ray of the right wrist is negative for any acute abnormalities. CT of cervical spine is negative for any acute abnormalities. Head CT is negative for any acute abnormalities. CT of the thoracic spine is negative for any acute abnormality. CT of the lumbar spine is negative for any acute abnormalities. All x-rays and CTs are unremarkable. Patient has remained stable and without complaint while here in the emergency department. The patient is stable for discharge to home. I discussed the case with my attending physician Dr. Melendez who is aware of the patients history, physical examination findings, and treatment plan. Diagnosis Primary Impression: Syncope Qualified Code: R55 - Syncope, unspecified syncope type Additional Impressions: Back pain Qualified Code: M54.9 - Bilateral back pain, unspecified back location, unspecified chronicity Neck pain Fall (on) (from) other stairs and steps, initial encounter Referrals: Primary Care Physician Patient Instructions: General Instructions, Muscle Strain (ED), Syncope (ED) Additional Instructions: Take medication as prescribed with food and a full glass of water. Follow-up with your Primary Care Physician. Return to the ED for any acute worsening of symptoms. Med/Other Pt SpecificInfo: Prescription(s) given Scripts Naproxen 500 Mg [id number] Mg PO BID 7 Days Ref 0 Prov:Lei Melendez MD 02/17/17 Disposition: 01 DISCHARGE HOME Condition: Stable Polly Nick Feb 17, 2017 16:24
[2017-02-17] MEDS ORDERED: SODIUM CHLORIDE 0.9% FLUSH 10 ML FLUSH IVF PRN (16:30)
--- NOTE | 2017-02-17 17:31 | RADRPT ---
EXAM DATE/TIME: 02/17/2017 16:52 [facility] COMPARISON: CT BRAIN W/O CONTRAST, February 14, 2017, 18:34. INDICATIONS : Fell downstairs after syncopal episode. RADIATION DOSE: 59.39 CTDIvol (mGy) MEDICAL HISTORY : Cardiovascular disease. Hypertension. SURGICAL HISTORY : CABG ENCOUNTER: Initial ACUITY: 1 day PAIN SCALE: 4/10 LOCATION: cranial TECHNIQUE: Multiple contiguous axial images were obtained of the head. Using automated exposure control and adj ustment of the mA and/or kV according to patient size, radiation dose was kept as low as reasonably a chievable to obtain optimal diagnostic quality images. FINDINGS: CEREBRUM: The ventricles are normal for age. No evidence of midline shift, mass lesion, hemorrhage or acute in farction. No extra-axial fluid collections are seen. POSTERIOR FOSSA: The cerebellum and brainstem are intact. The 4th ventricle is midline. The cerebellopontine angle i s unremarkable. EXTRACRANIAL: The visualized portion of the orbits is intact. SKULL: The calvaria is intact. No evidence of skull fracture. CONCLUSION: 1. No acute intracranial abnormalities. Mucosal thickening left maxillary sinus. Hank Snell MD on February 17, 2017 at 17:27 Board Certified Radiologist. This report was verified electronically.
--- NOTE | 2017-02-17 17:34 | RADRPT ---
EXAM DATE/TIME: 02/17/2017 16:29 [facility] COMPARISON: CHEST PA & LAT, January 29, 2017, 19:30. INDICATIONS : Evaluate chest for trauma, fell MEDICAL HISTORY : Cardiovascular disease. Hypertension. SURGICAL HISTORY : None. ENCOUNTER: Initial ACUITY: 1 day PAIN SCORE: 8/10 LOCATION: chest FINDINGS: PA and lateral views of the chest demonstrate the lungs to be symmetrically aerated without evidence of mass, infiltrate or effusion. The cardiomediastinal contours are unremarkable. Postoperative CABG . Osseous structures are intact. CONCLUSION: 1. No acute findings. Postoperative CABG. Hank Snell MD on February 17, 2017 at 17:31 Board Certified Radiologist. This report was verified electronically.
--- NOTE | 2017-02-17 17:35 | RADRPT ---
EXAM DATE/TIME: 02/17/2017 16:34 [facility] COMPARISON: No previous studies available for comparison. INDICATIONS : Left knee pain, fell MEDICAL HISTORY : Cardiovascular disease. Hypertension. SURGICAL HISTORY : None. ENCOUNTER: Initial ACUITY: 1 day PAIN SCORE: 8/10 LOCATION: Left Knee FINDINGS: Four view examination of the left knee demonstrates no evidence of fracture or dislocation. Bony min eralization is normal. The articular surfaces are intact. The suprapatellar soft tissues have a nor mal configuration. CONCLUSION: 1. No acute findings. Hank Snell MD on February 17, 2017 at 17:33 Board Certified Radiologist. This report was verified electronically.
--- NOTE | 2017-02-17 17:37 | RADRPT ---
EXAM DATE/TIME: 02/17/2017 16:38 [facility] COMPARISON: No previous studies available for comparison. INDICATIONS : Right wrist pain, fell MEDICAL HISTORY : Cardiovascular disease. Hypertension. SURGICAL HISTORY : None. ENCOUNTER: Initial ACUITY: 1 day PAIN SCORE: 8/10 LOCATION: Right Wrist FINDINGS: Three view examination of the right wrist demonstrates no soft tissue swelling, dislocation, or fract ure. The carpal bones are in normal alignment. The joint spaces are maintained. Bony mineralizatio n is normal. CONCLUSION: No acute disease. Hank Snell MD on February 17, 2017 at 17:34 Board Certified Radiologist. This report was verified electronically.
--- NOTE | 2017-02-17 17:41 | RADRPT ---
EXAM DATE/TIME: 02/17/2017 16:42 [facility] COMPARISON: No previous studies available for comparison. INDICATIONS : Left foot pain, fell MEDICAL HISTORY : Cardiovascular disease. Hypertension. SURGICAL HISTORY : None. ENCOUNTER: Initial ACUITY: 1 day PAIN SCORE: 6/10 LOCATION: Left Foot FINDINGS: Three view examination of the left foot demonstrates no soft tissue swelling, dislocation, or fractur e. The tarsal bones appear intact. The interphalangeal and metatarsophalangeal joints are intact. The calcaneus is intact. Bony mineralization is normal. CONCLUSION: Normal examination for a patient of this age. Hank Snell MD on February 17, 2017 at 17:39 Board Certified Radiologist. This report was verified electronically.
--- NOTE | 2017-02-17 17:41 | RADRPT ---
EXAM DATE/TIME: 02/17/2017 16:39 [facility] COMPARISON: No previous studies available for comparison. INDICATIONS : Right foot pain MEDICAL HISTORY : Cardiovascular disease. Hypertension. SURGICAL HISTORY : None. ENCOUNTER: Initial ACUITY: 1 day PAIN SCORE: 8/10 LOCATION: Right Foot FINDINGS: Three view examination of the right foot demonstrates no soft tissue swelling, dislocation, or fractu re. The tarsal bones appear intact. The interphalangeal and metatarsophalangeal joints are intact. The calcaneus is intact. Bony mineralization is normal. CONCLUSION: Normal examination for a patient of this age. Hank Snell MD on February 17, 2017 at 17:38 Board Certified Radiologist. This report was verified electronically.
[2017-02-17 17:48] VITALS: RESP 18
--- NOTE | 2017-02-17 17:49 | RADRPT ---
EXAM DATE/TIME: 02/17/2017 16:52 [facility] COMPARISON: CT CERVICAL SPINE W/O CONTRAST, January 30, 2017, 17:39. INDICATIONS : Fell downstairs after syncopal episode. Neck pain. RADIATION DOSE: 19.12 CTDIvol (mGy) MEDICAL HISTORY : Cardiovascular disease. Hypertension. SURGICAL HISTORY : CABG ENCOUNTER: Initial ACUITY: 1 day PAIN SCALE: 4/10 LOCATION: neck TECHNIQUE: Volumetric scanning of the cervical spine was performed. Multiplanar reconstructions in the sagittal, coronal and oblique axial planes were performed. Using automated exposure control and adjustment o f the mA and/or kV according to patient size, radiation dose was kept as low as reasonably achievable to obtain optimal diagnostic quality images. FINDINGS: There is moderate degenerative disc disease in the cervical spine moderate facet arthropathy. No sign ificant change from January 30. No significant central canal stenosis. No prevertebral soft tissue swel ling. CONCLUSION: 1. No acute findings. Moderate degenerative change. Hank Snell MD on February 17, 2017 at 17:44 Board Certified Radiologist. This report was verified electronically.
--- NOTE | 2017-02-17 17:52 | RADRPT ---
EXAM DATE/TIME: 02/17/2017 16:59 [facility] COMPARISON: No previous studies available for comparison. INDICATIONS : Fell downstairs after syncopal episode. Pain RADIATION DOSE: 34.48 CTDIvol (mGy) ; Combined studies - Thoracic Spine/Lumbar Spine MEDICAL HISTORY : Cardiovascular disease. Hypertension. SURGICAL HISTORY : CABG ENCOUNTER: Initial ACUITY: 1 day PAIN SCALE: 4/10 LOCATION: thoracic TECHNIQUE: Volumetric scanning of the thoracic spine was performed. Multiplanar reconstructions in the sagittal , coronal and oblique axial planes were performed. Using automated exposure control and adjustment o f the mA and/or kV according to patient size, radiation dose was kept as low as reasonably achievable to obtain optimal diagnostic quality images. FINDINGS: Comparison is October 2016. Again seen are stable Schmorl's nodes. There is moderate degenerative di sc disease. No acute fracture identified within the thoracic spine. Limbus vertebra anterior aspect o f L1. No significant canal stenosis. CONCLUSION: 1. No acute findings. Moderate degenerative disc disease. No significant canal stenosis. No significa nt change from October 2016. Hank Snell MD on February 17, 2017 at 17:48 Board Certified Radiologist. This report was verified electronically.
--- NOTE | 2017-02-17 17:55 | RADRPT ---
EXAM DATE/TIME: 02/17/2017 16:59 [facility] COMPARISON: CT LUMBAR SPINE W/O CONTRAST, November 06, 2016, 20:11. INDICATIONS : Fell downstairs after syncopal episode. Pain RADIATION DOSE: 34.48 CTDIvol (mGy) ; Combined studies - Thoracic Spine/Lumbar Spine MEDICAL HISTORY : Cardiovascular disease. Hypertension. SURGICAL HISTORY : CABG ENCOUNTER: Initial ACUITY: 1 day PAIN SCALE: 4/10 LOCATION: lumbar TECHNIQUE: Volumetric scanning of the lumbar spine was performed. Multiplanar reconstructions in the sagittal, coronal and oblique axial planes were performed. Using automated exposure control and adjustment of the mA and/or kV according to patient size, radiation dose was kept as low as reasonably achievable t o obtain optimal diagnostic quality images. FINDINGS: There is stable chronic deformity superior endplate L1 anteriorly with limbus vertebra. No acute frac ture or subluxation. Moderate degenerative disc disease and facet arthropathy. No significant canal s tenosis. CONCLUSION: 1. No acute findings. Chronic endplate deformity at L1 superiorly. Hank Snell MD on February 17, 2017 at 17:51 Board Certified Radiologist. This report was verified electronically.
[2017-02-17 18:21] VITALS: BP 161/84; PULSE 85; RESP 16; O2SAT 98
[2017-02-17] MEDS ORDERED: NAPR500T PO (18:24)
--- NOTE | 2017-02-18 14:14 | EKG ---
Date Performed: 02/17/2017 Time Performed: 17:46:06 PTAGE: 61 years EKG: Sinus rhythm POSSIBLE LEFT ATRIAL ENLARGEMENT Since previous tracing, no significant change noted BORDERLINE ECG PREVIOUS TRACING : 02/15/2017 06.48 DOCTOR: Fidelina Turcios Interpretating Date/Time 02/18/2017 14:12:46
== END 2017-02-17 18:37 | disposition home or self-care (01) ==
LOC: NEPC 16:04
DX: R55 Syncope and collapse (principal); R42 Dizziness and giddiness; M54.9 Dorsalgia, unspecified; M54.2 Cervicalgia; M79.672 Pain in left foot; M79.671 Pain in right foot; M25.531 Pain in right wrist; I10 Essential (primary) hypertension; J44.9 Chronic obstructive pulmonary disease, unspecified
CPT/HCPCS: 70450; 71020; 72125; 72128; 72131; 73110; 73564; 73630; 93005

== ENCOUNTER 2017-02-25 16:20 | Emergency (ER) | payer OTHER ==
[~2017-02-25 16:20] MED LIST changes: +NAPR500T PO
[2017-02-25 16:30] VITALS: BP 151/90; PULSE 80; RESP 18; TEMP 97.8; O2SAT 100
[2017-02-25] MEDS ORDERED: SODIUM CHLORID 0.9% 500 ML INJ 500 ML IV ONE (17:00)
[2017-02-25] MEDS ORDERED: SODIUM CHLORIDE 0.9% FLUSH 10 ML FLUSH IVF PRN (17:00)
[2017-02-25] MEDS ORDERED: NITROGLYCERIN 0.4 MG SL 25 TABS/BTL SL ONE (17:00)
--- NOTE | 2017-02-25 17:12 | PD ---
HPI Chief Complaint: Chest Pain Time Seen by Provider: 16:31 Travel History International Travel<30 days: No Contact w/Intl Traveler<30days: No Traveled to known affect area: No History of Present Illness HPI Patient's 61-year-old male with multiple presentations to this emergency Department this month presents with chest pain as well as blood in his stool and hematemesis ever since being in social security office approximately an hour ago. Patient states pain is sharp does radiate to his left shoulder. He does follow with leadite man Dr. Perez and has an appointment next week. Patient states she's not had a colonoscopy in several years but did have an endoscopy already this month this institution. Denies any easy bruising. Patient was admitted approximately a week ago had troponin trending and ultimately went underwent EGD showing gastritis. Patient states that he thinks that he blood my also been his urine because of it looked funny at the social security office. Patient took 2 aspirin 81 mg prior to arrival. Of note patient was admitted in November 2016 for an and STEMI with troponins maxing at 0.[address] Snell his consultation on November 22, 2016 the patient had had a catheter in October 2016 with PCI to the LMLAD. He did have a stent thrombosis on November 13, 2016 which was reopened by Dr. bettencourt. Dr. Snell recommendations in November were normal to treat medically and not to re- catheterize. Since November 22 patient has had 11 presentations to the emergency department at [place] resulting in one to one hospitalization and four observations. Many of the recommendations were for aggressive medical management and follow up outpatient. Patient's one full admission was on January 30 when he was seen by Dr. Pritchett who was planning for 2 troponins, the patient refused a second troponin and was Araujo acted. Dr. Pritchett had mentioned that the patient fits profile for malingering. PFSH Past Medical History Hx Anticoagulant Therapy: Yes (He does not know the name of the medication) Arthritis: Yes Anxiety: Yes Depression: Yes Cardiac Catheterization: Yes High Cholesterol: Yes Chest Pain: Yes COPD: Yes Coronary Artery Disease: Yes Diminished Hearing: No GERD: Yes Hiatal Hernia: Yes Hypertension: Yes Kidney Stones: Yes Medical other: Yes (STS PASSED OUT 4 DAYS AGO & ALL HIS MEDS WERE STOLEN) Neurologic: Yes (multiple episodes of syncope, EVAL BY NEURO WHO STATES "CARDIAC") Immunizations Current: Yes Migraines: Yes Myocardial Infarction: Yes Past Surgical History Cardiac Surgery: Yes Coronary Artery Bypass Graft: Yes Coronary Stent: Yes (X5) Family History Family Myocardial Infarction: Yes Social History Alcohol Use: No Tobacco Use: Yes ("TRYING TO QUIT") Substance Use: No Allergies-Medications (Allergen,Severity, Reaction): Coded Allergies: Toradol (Verified Allergy, Severe, RASH, 02/25/17) Penicillin (Verified Allergy, Unknown, Anaphylaxis, 02/25/17) Reported Meds & Prescriptions Reported Meds & Active Scripts Active Gabapentin 600 Mg Tab 600 Mg PO TID Isosorbide Mononitrate ER (Isosorbide Mononitrate) 30 Mg Ronny 15 Mg PO DAILY@07 Furosemide 20 Mg Tab 20 Mg PO DAILY Effient (Prasugrel) 10 Mg Tab 10 Mg PO DAILY Lipitor (Atorvastatin Calcium) 80 Mg Tab 80 Mg PO DAILY Aspirin 81 Mg Chew 81 Mg CHEW DAILY Fluticasone Nasal [place] 50 Mcg/Act Naspr 1 [place] NASAL BID Ventolin Hfa 18 GM Inh (Albuterol Sulfate) 90 Mcg/Act Aer 2 Puff INH Q4-6H PRN Nitroglycerin SL (Nitroglycerin) 0.3 Mg Subl 0.3 Mg SL DIRECTED PRN ONE TABLET UNDER THE TONGUE NEEDED FOR CHEST PAIN, MAY REPEAT EVERY FIVE MINUTES FOR A TOTAL OF 3 DOSES OR CALL 911 IF NO RELIEF. Protonix (Pantoprazole Sodium) 40 Mg Tab 40 Mg PO DAILY Reported Oxycodone (Oxycodone HCl) 30 Mg Tab 30 Mg PO Q6H PRN Alprazolam 1 Mg Tab 1 Mg PO BID Review of Systems Except as stated in HPI: all other systems reviewed are Neg Physical Exam Narrative GENERAL: Well-developed well-nourished no apparent distress. SKIN: Focused skin assessment warm/dry. HEAD: Atraumatic. Normocephalic. EYES: Pupils equal and round. No scleral icterus. No injection or drainage. ENT: No nasal bleeding or discharge. Mucous membranes pink and moist. NECK: Trachea midline. No JVD. CARDIOVASCULAR: Regular rate and rhythm. No murmur appreciated. Patient has reproducible left-sided chest pain. 2+ bilaterally equal pulses in all 4 extremity's. RESPIRATORY: No accessory muscle use. Clear to auscultation. Breath sounds equal bilaterally. GASTROINTESTINAL: Abdomen soft, non-tender, nondistended. Hepatic and splenic margins not palpable. Rectal exam shows no gross blood and no hemorrhoids no fissures no melena Hemoccult negative. MUSCULOSKELETAL: No obvious deformities. No clubbing. No cyanosis. No edema. NEUROLOGICAL: Awake and alert. No obvious cranial nerve deficits. Motor grossly within normal limits. Normal speech. PSYCHIATRIC: Appropriate mood and affect; insight and judgment normal. Data Data Last Documented VS Vital Signs Date Time Temp Pulse Resp B/P Pulse Ox O2 Delivery O2 Flow Rate FiO2 02/25/17 17:33 98 Room Air 02/25/17 16:30 97.8 80 18 151/90 Orders Ckmb (Isoenzyme) Profile (02/25/17 16:51) Complete Blood Count With Diff (02/25/17 16:51) Comprehensive Metabolic Panel (02/25/17 16:51) Prothrombin Time / Inr (Pt) (02/25/17 16:51) Act Partial Throm Time (Ptt) (02/25/17 16:51) Troponin I (02/25/17 16:51) Chest, Single Ap (02/25/17 16:51) Ecg Monitoring (02/25/17 16:51) Bilateral Bp Monitoring (02/25/17 16:51) Iv Access Insert/Monitor (02/25/17 16:51) Oximetry (02/25/17 16:51) Oxygen Administration (02/25/17 16:51) Sodium Chloride 0.9% Flush (Ns Flush) (02/25/17 17:00) Nitroglycerin Sl (Nitrostat Sl) (02/25/17 17:00) Sodium Chlorid 0.9% 500 Ml Inj (Ns 500 M (02/25/17 17:00) Urinalysis - C+S If Indicated (02/25/17 16:51) Labs Laboratory Tests Test 02/25/17 17:30 White Blood Count 10.0 TH/MM3 Red Blood Count 5.17 MIL/MM3 Hemoglobin 13.8 GM/DL Hematocrit 42.3 % Mean Corpuscular Volume 81.8 FL Mean Corpuscular Hemoglobin 26.6 PG Mean Corpuscular Hemoglobin 32.6 % Concent Red Cell Distribution Width 14.4 % Platelet Count 315 TH/MM3 Mean Platelet Volume 8.4 FL Neutrophils (%) (Auto) 74.9 % Lymphocytes (%) (Auto) 19.3 % Monocytes (%) (Auto) 4.3 % Eosinophils (%) (Auto) 0.8 % Basophils (%) (Auto) 0.7 % Neutrophils # (Auto) 7.5 TH/MM3 Lymphocytes # (Auto) 1.9 TH/MM3 Monocytes # (Auto) 0.4 TH/MM3 Eosinophils # (Auto) 0.1 TH/MM3 Basophils # (Auto) 0.1 TH/MM3 CBC Comment DIFF FINAL Differential Comment Prothrombin Time 11.2 SEC Prothromb Time International 1.0 RATIO Ratio Activated Partial 26.6 SEC Thromboplast Time Sodium Level 144 MEQ/L Potassium Level 3.5 MEQ/L Chloride Level 108 MEQ/L Carbon Dioxide Level 26.0 MEQ/L Anion Gap 10 MEQ/L Blood Urea Nitrogen 16 MG/DL Creatinine 0.95 MG/DL Estimat Glomerular Filtration 81 ML/MIN Rate Random Glucose 93 MG/DL Calcium Level 9.2 MG/DL Total Bilirubin 0.9 MG/DL Aspartate Amino Transf 11 U/L (AST/SGOT) Alanine Aminotransferase 18 U/L (ALT/SGPT) Alkaline Phosphatase 87 U/L Total Creatine Kinase 59 U/L Troponin I LESS THAN 0.02 NG/ML Total Protein 8.2 GM/DL Albumin 4.4 GM/DL MDM Medical Decision Making Medical Screen Exam Complete: Yes Emergency Medical Condition: Yes Interpretation(s) EKG shows normal sinus rhythm with normal axis and early R-wave transition. Nonspecific RSR prime pattern in 23 and aVF. There are isolated T-wave inversions in V1 and V2. No ST segment changes. This an abnormal EKG. Differential Diagnosis ACS, [place], GI bleeding, coronary disease, esophagitis, pancreatitis, urinary tract infection, poor social circumstance. Narrative Course 7-year-old male presents to the emergency department for multiple complaints: Epigastric pain, blood in his stool blood in his emesis as well as blood in his urine for the past hour. Patient with multiple presentations for the same. Does have notable history of coronary disease, CABG, esophagitis diagnosed by EGD earlier this month. Initial evaluation aspirin was held secondary to possibility of GI bleeding. His fecal occult was negative. There is no gross blood nor gross melena. His chest pain was reproducible pressing on the left side. However does have significant risk factors for ACS. Nursing was also unable to obtain IV axis. Patient told me he would give me 1 chance to try to start an IV and then he was given a sign out AMA. He requested that it be done in his neck. I told to start an IV in his right EJ this produced a flash of dark red blood however the site immediately infiltrated , the needle and catheter removed. Ultrasound-guided access was then obtained in the left antecubital fossa. Blood work was sent. Nitroglycerin was ordered which the patient refused stating it only gives him a headache and doesn't help with his pain. His initial lab work still pending the patient approached nursing stating he wanted to leave as we were treating his pain. I arrived at the bedside and found him in no apparent distress. He was offered additional pain medicine which she declined and stated he still wanted to leave. I discussed with him his risks of ACS as well as GI bleeding with his workup still pending at this time I cannot give many assurance this is not his heart and is not bleeding to . I discussed with him that this could result in as well as permanent disability as well as being bedbound for rest of his life. He verbalized understanding of wanted to go home. Patient also stated that he didn't want to appear in the first place his stephane made him because of the repeat syncopal episodes which been well documented in his chart. Formal AMA with signed. I stressed the importance for following up with his leadite man was primary care provider and he verbalized understanding. I informed him use welcome to return to the emergency department at any time. Shortly after he signed out AMA his labs reviewed and his troponin was negative his H&H was within normal limits. Diagnosis Primary Impression: Chest pain Additional Impressions: Emesis Dysuria Disposition: 07 AGAINST MEDICAL ADVICE Condition: Stable Abe Nguyen MD Feb 25, 2017 17:12
[2017-02-25 17:33] VITALS: O2SAT 98
[2017-02-25 17:39] LABS: AUTOMATED NEUTROPHIL # 7.5 TH/MM3 (1.8-7.7); BASOPHIL # 0.1 TH/MM3 (0-0.2); BASOPHIL % 0.7 % (0.0-2.0); EOSINOPHIL # 0.1 TH/MM3 (0-0.4); EOSINOPHIL % 0.8 % (0.0-4.0); HEMATOCRIT 42.3 % (39.0-51.0); HEMO FLAGS DIFF FINAL; LYMPH % 19.3 % (9.0-44.0); LYMPHOCYTE # 1.9 TH/MM3 (1.0-4.8); MEAN CELL VOLUME 81.8 FL (80.0-100.0); MEAN CORPUSCULAR HEMOGLOBIN 26.6 PG (27.0-34.0); MEAN CORPUSCULAR HGB CONC 32.6 % (32.0-36.0); MONO % 4.3 % (0.0-8.0); NEUT % 74.9 % (16.0-70.0); PLATELET COUNT 315 TH/MM3 (150-450); RED BLOOD COUNT 5.17 MIL/MM3 (4.50-5.90); RED CELL DISTRIBUTION WIDTH 14.4 % (11.6-17.2)
[2017-02-25 17:47] LABS: CHLORIDE 108 MEQ/L (98-107); POTASSIUM 3.5 MEQ/L (3.5-5.1); SODIUM (NA) 144 MEQ/L (136-145)
[2017-02-25 17:51] LABS: ANION GAP 10 MEQ/L (5-15); BLOOD UREA NITROGEN 16 MG/DL (7-18)
[2017-02-25 17:54] LABS: ALT (GPT) 18 U/L (12-78); AST (GOT) 11 U/L (15-37)
--- NOTE | 2017-02-25 17:54 | RADHPO ---
EXAM DATE/TIME: 02/25/2017 17:37 [facility] COMPARISON: CHEST SINGLE AP, February 14, 2017, 18:08. INDICATIONS : Chest pain. MEDICAL HISTORY : Hypertension. Myocardial infarction. SURGICAL HISTORY : Coronary artery stent. CABG. ENCOUNTER: Initial ACUITY: 3 days PAIN SCORE: 8/10 LOCATION: Left upper chest FINDINGS: A single view of the chest demonstrates the lungs to be symmetrically aerated with some atelectatic c hanges of the right hemidiaphragm and possible associated small right-sided effusion. Lungs are other khalil clear. Heart size is normal. Findings of prior CABG with intact median sternotomy wires and makayla nary ostial rings. Osseous structures are intact. CONCLUSION: 1. Minimal atelectatic changes above the right hemidiaphragm with possible associated small right-radha ed effusion. 2. Lungs are otherwise clear. 3. Stable postsurgical changes characteristic of prior CABG. Attila Farrar MD on February 25, 2017 at 17:51 Board Certified Radiologist. This report was verified electronically.
[2017-02-25 17:55] LABS: GLOMERULAR FILTRATION RATE 81 ML/MIN (>89)
[2017-02-25 17:56] LABS: TOTAL BILIRUBIN ADULT 0.9 MG/DL (0.2-1.0)
[2017-02-25 17:57] LABS: ALKALINE PHOSPHATASE 87 U/L (45-117)
[2017-02-25 17:58] LABS: CREATINE KINASE 59 U/L (39-308)
[2017-02-25 18:00] LABS: APTT (PATIENT) 26.6 SEC (24.3-30.1); PROTHROMBIN TIME - PATIENT 11.2 SEC (9.8-11.6)
--- NOTE | 2017-02-26 06:57 | EKG ---
Date Performed: 02/25/2017 Time Performed: 16:24:36 PTAGE: 61 years EKG: Sinus rhythm Septal T wave changes are nonspecific Borderline ECG NO SIGNIFICANT CHANGE FROM PRIOR ELECTROCARDIOG CARLA. PREVIOUS TRACING : 02/17/2017 17.46 DOCTOR: Vidal Clark Interpretating Date/Time 02/26/2017 06:56:26
== END 2017-02-25 18:05 | disposition left against medical advice (07) ==
LOC: PHED 16:20
DX: R07.9 Chest pain, unspecified (principal); R30.0 Dysuria; R11.10 Vomiting, unspecified; M19.90 Unspecified osteoarthritis, unspecified site; F41.8 Other specified anxiety disorders; E78.00 Pure hypercholesterolemia, unspecified; J44.9 Chronic obstructive pulmonary disease, unspecified; Z53.29 Procedure and treatment not carried out because of patient's decision for other reasons; R94.31 Abnormal electrocardiogram [ECG] [EKG]; I25.10 Atherosclerotic heart disease of native coronary artery without angina pectoris; Z87.442 Personal history of urinary calculi; Z95.5 Presence of coronary angioplasty implant and graft; Z79.01 Long term (current) use of anticoagulants; Z72.0 Tobacco use; I25.2 Old myocardial infarction
CPT/HCPCS: 71010; 80053; 82550; 84484; 85025; 85610; 85730; 93005; 99285; J7040

== ENCOUNTER 2017-03-13 19:43 | Observation (INO) | payer OTHER ==
[~2017-03-13 19:43] MED LIST changes: -NAPR500T PO
[2017-03-13 19:45] VITALS: BP 153/79; PULSE 91; RESP 16; TEMP 98.2; O2SAT 98
[2017-03-13 19:57] VITALS: BP 149/86; PULSE 83; RESP 18; O2SAT 99
[2017-03-13 20:08] VITALS: BP 138/79; PULSE 80; RESP 22; O2SAT 100
[2017-03-13] MEDS ORDERED: NITROGLYCERIN 2% OINT 1 GM PACKET TOP ONE (20:15)
[2017-03-13] MEDS ORDERED: SODIUM CHLORIDE 0.9% FLUSH 10 ML FLUSH IVF PRN (20:15)
[2017-03-13] MEDS ORDERED: ASPIRIN 81 MG CHEW TAB PO ONE (20:15)
[2017-03-13 20:28] LABS: AUTOMATED NEUTROPHIL # 5.7 TH/MM3 (1.8-7.7); BASOPHIL % 0.5 % (0.0-2.0); EOSINOPHIL % 0.5 % (0.0-4.0); HEMO FLAGS DIFF FINAL; LYMPH % 26.2 % (9.0-44.0); LYMPHOCYTE # 2.4 TH/MM3 (1.0-4.8); MEAN CELL VOLUME 81.7 FL (80.0-100.0); MEAN CORPUSCULAR HEMOGLOBIN 27.5 PG (27.0-34.0); MEAN CORPUSCULAR HGB CONC 33.6 % (32.0-36.0); MONO % 8.9 % (0.0-8.0); NEUT % 63.9 % (16.0-70.0); PLATELET COUNT 292 TH/MM3 (150-450); RED BLOOD COUNT 4.52 MIL/MM3 (4.50-5.90); RED CELL DISTRIBUTION WIDTH 16.3 % (11.6-17.2)
--- NOTE | 2017-03-13 20:29 | PD ---
HPI Chief Complaint: Chest Pain Time Seen by Provider: 20:00 Travel History International Travel<30 days: No Contact w/Intl Traveler<30days: No Traveled to known affect area: No History of Present Illness HPI Patient comes in for evaluation of left-sided chest pain that began this afternoon. Describes as a pressure-like pain. Patient states he took 2 baby aspirin and 3 nitros with no improvement of the symptoms. Patient reports associated shortness of breath, nausea, and left upper extremity numbness and tingling. Patient denies any trauma. Patient states he contacted his crayon grader Dr. Perez who told him to come to the emergency department. Patient reports pain progressively got worse, he started getting clammy, and decided to come to the emergency department. Patient denies any vomiting, headache except after taking nitroglycerin, dizziness, abdominal pain, or back pain. PFSH Past Medical History Hx Anticoagulant Therapy: Yes (He does not know the name of the medication) Arthritis: Yes Anxiety: Yes Depression: Yes Cardiac Catheterization: Yes Cardiovascular Problems: Yes High Cholesterol: Yes Chest Pain: Yes COPD: Yes Coronary Artery Disease: Yes Diminished Hearing: No Gastrointestinal Disorders: Yes GERD: Yes Hiatal Hernia: Yes Hypertension: Yes Implanted Vascular Access Dvce: Yes Kidney Stones: Yes Neurologic: Yes (multiple episodes of syncope, EVAL BY NEURO WHO STATES "CARDIAC") Immunizations Current: Yes Migraines: Yes Myocardial Infarction: Yes Past Surgical History Cardiac Surgery: Yes Coronary Artery Bypass Graft: Yes Coronary Stent: Yes (X5) Other Surgery: Yes (CABG, STENTING) Family History Family Myocardial Infarction: Yes Social History Alcohol Use: No Tobacco Use: No Substance Use: Yes (marijuana) Allergies-Medications (Allergen,Severity, Reaction): Coded Allergies: Toradol (Verified Allergy, Severe, RASH, 03/13/17) Penicillin (Verified Allergy, Unknown, Anaphylaxis, 03/13/17) Reported Meds & Prescriptions Reported Meds & Active Scripts Active Gabapentin 600 Mg Tab 600 Mg PO TID Furosemide 20 Mg Tab 20 Mg PO DAILY Effient (Prasugrel) 10 Mg Tab 10 Mg PO DAILY Lipitor (Atorvastatin Calcium) 80 Mg Tab 80 Mg PO DAILY Aspirin 81 Mg Chew 81 Mg CHEW DAILY Fluticasone Nasal [place] 50 Mcg/Act Naspr 1 [place] NASAL BID Ventolin Hfa 18 GM Inh (Albuterol Sulfate) 90 Mcg/Act Aer 2 Puff INH Q4-6H PRN Nitroglycerin SL (Nitroglycerin) 0.3 Mg Subl 0.3 Mg SL DIRECTED PRN ONE TABLET UNDER THE TONGUE NEEDED FOR CHEST PAIN, MAY REPEAT EVERY FIVE MINUTES FOR A TOTAL OF 3 DOSES OR CALL 911 IF NO RELIEF. Reported Oxycodone (Oxycodone HCl) 30 Mg Tab 30 Mg PO Q6H PRN Alprazolam 1 Mg Tab 1 Mg PO BID Review of Systems Except as stated in HPI: all other systems reviewed are Neg Physical Exam Narrative GENERAL: Well-developed, well nourished, in mild distress, and non-ill appearing. SKIN: Clamming with mild diaphoresis noted. HEAD: Atraumatic. Normocephalic. EYES: Pupils equal and round. EOMI. No scleral icterus. No injection or drainage. ENT: No nasal bleeding or discharge. Mucous membranes pink and moist. NECK: Trachea midline. Supple. No nuclear rigidity. CARDIOVASCULAR: Regular rate and rhythm. No murmur appreciated. RESPIRATORY: No accessory muscle use. No respiratory distress. Clear to auscultation. Breath sounds equal bilaterally. GASTROINTESTINAL: Abdomen soft, non-tender, nondistended. Hepatic and splenic margins not palpable. No pulsatile mass. MUSCULOSKELETAL: No obvious deformities. No clubbing. No cyanosis. No edema. Full range of motion. NEUROLOGICAL: Awake and alert. No obvious cranial nerve deficits. Motor grossly within normal limits. Normal speech. PSYCHIATRIC: Appropriate mood and affect; insight and judgment normal. Data Data Last Documented VS Vital Signs Date Time Temp Pulse Resp B/P Pulse Ox O2 Delivery O2 Flow Rate FiO2 03/13/17 20:09 100 Nasal Cannula 2 03/13/17 20:08 80 22 138/79 03/13/17 19:45 98.2 Orders Basic Metabolic Panel (Bmp) (03/13/17 20:01) Ckmb (Isoenzyme) Profile (03/13/17 20:01) Complete Blood Count With Diff (03/13/17 20:01) Magnesium (Mg) (03/13/17 20:01) Prothrombin Time / Inr (Pt) (03/13/17 20:01) Act Partial Throm Time (Ptt) (03/13/17 20:01) Troponin I (03/13/17 20:01) Chest, Single Ap (03/13/17 20:01) Ecg Monitoring (03/13/17 20:01) Bilateral Bp Monitoring (03/13/17 20:01) Iv Access Insert/Monitor (03/13/17 20:01) Oximetry (03/13/17 20:) Oxygen Administration (03/13/17 20:01) Aspirin Chew (Aspirin Chew) (03/13/17 20:15) Nitroglycerin 2% Oint (Nitroglycerin 2% (03/13/17 20:15) Sodium Chloride 0.9% Flush (Ns Flush) (03/13/17 20:15) Drug Screen, Random Urine (03/13/17 20:14) Electrocardiogram (03/13/17 19:53) CKMB (03/13/17 20:10) CKMB% (03/13/17 20:10) Acetaminophen (Tylenol) (03/13/17 21:15) Admit Order (Ed Use Only) (03/13/17 21:07) Activity Bed Rest With Brp (03/13/17 21:07) Vital Signs (Adult) Q4H (03/13/17 21:07) Cardiac Rhythm .As Directed (03/13/17 21:) Notify Dr: Other .PRN (03/13/17 21:) Notify DrJohn Paul Parameters (03/13/17 21:07) Resp Oxygen Nasal [place] (03/13/17 ) Ckmb (Isoenzyme) Profile (03/13/17 23:10) Ckmb (Isoenzyme) Profile (03/14/17 02:10) Troponin I (03/13/17 23:10) Troponin I (03/14/17 02:10) Electrocardiogram (03/13/17 23:10) Electrocardiogram (03/14/17 02:10) ^ Obtain (03/13/17 21:07) Sodium Chloride 0.9% Flush (Ns Flush) (03/13/17 21:15) Sodium Chloride 0.9% Flush (Ns Flush) (03/14/17 09:00) Global Account Manager / Telemetry PONCE.Q8H (03/13/17 21:07) Labs Laboratory Tests Test 03/13/17 20:10 White Blood Count 9.0 TH/MM3 Red Blood Count 4.52 MIL/MM3 Hemoglobin 12.4 GM/DL Hematocrit 37.0 % Mean Corpuscular Volume 81.7 FL Mean Corpuscular Hemoglobin 27.5 PG Mean Corpuscular Hemoglobin 33.6 % Concent Red Cell Distribution Width 16.3 % Platelet Count 292 TH/MM3 Mean Platelet Volume 9.1 FL Neutrophils (%) (Auto) 63.9 % Lymphocytes (%) (Auto) 26.2 % Monocytes (%) (Auto) 8.9 % Eosinophils (%) (Auto) 0.5 % Basophils (%) (Auto) 0.5 % Neutrophils # (Auto) 5.7 TH/MM3 Lymphocytes # (Auto) 2.4 TH/MM3 Monocytes # (Auto) 0.8 TH/MM3 Eosinophils # (Auto) 0.0 TH/MM3 Basophils # (Auto) 0.0 TH/MM3 CBC Comment DIFF FINAL Differential Comment Sodium Level 140 MEQ/L Potassium Level 3.9 MEQ/L Chloride Level 106 MEQ/L Carbon Dioxide Level 24.9 MEQ/L Anion Gap 9 MEQ/L Blood Urea Nitrogen 10 MG/DL Creatinine 1.11 MG/DL Estimat Glomerular Filtration 68 ML/MIN Rate Random Glucose 125 MG/DL Calcium Level 8.6 MG/DL Magnesium Level 1.9 MG/DL Total Creatine Kinase 137 U/L Troponin I LESS THAN 0.02 NG/ML MDM Medical Decision Making Medical Screen Exam Complete: Yes Emergency Medical Condition: Yes Interpretation(s) EKG reviewed by Dr. Leslie shows sinus rhythm with ventricular rate of 85. No STEMI. Differential Diagnosis Acute coronary syndrome, angina, pneumonia, electrolyte abnormality, other Narrative Course Patient was seen and examined. Initial lab for radiological studies were obtained and reviewed with exception of urine drug screen that is currently pending. Patient was given aspirin and Nitropaste was applied. Discussed patient with Dr. Leslie, who recommends placing patient in chest pain center for further treatment and evaluation. Discussed all findings and plan of care with patient, who is agreeable for admission and feels that he needs another stress test. All questions were answered. Patient remained stable throughout ED course. Diagnosis Primary Impression: Chest pain Qualified Code: R07.9 - Chest pain, unspecified type Admitting Information Admitting Physician Requests: Observation Condition: Stable Ethan Abarca March 13, 2017 20:29
--- NOTE | 2017-03-13 20:38 | RADRPT ---
EXAM DATE/TIME: 03/13/2017 20:17 [facility] COMPARISON: CHEST SINGLE AP, February 25, 2017, 17:37. INDICATIONS : Chest pain. MEDICAL HISTORY : Hypertension. Myocardial infarction. SURGICAL HISTORY : Coronary artery stent. CABG. ENCOUNTER: Initial ACUITY: 1 day PAIN SCORE: 8/10 LOCATION: chest FINDINGS: A single view of the chest demonstrates the lungs to be symmetrically aerated without evidence of mas s, infiltrate or effusion. The cardiomediastinal contours are unremarkable. Osseous structures are intact. The patient is again noted be status post median sternotomy. There are overlying electrocardi ogram leads. CONCLUSION: No acute disease. Billy Bradford MD on March 13, 2017 at 20:36 Board Certified Radiologist. This report was verified electronically.
[2017-03-13 20:59] LABS: ANION GAP 9 MEQ/L (5-15); BICARBONATE 24.9 MEQ/L (21.0-32.0); BLOOD UREA NITROGEN 10 MG/DL (7-18); CHLORIDE 106 MEQ/L (98-107); CREATINE KINASE 137 U/L (39-308); GLOMERULAR FILTRATION RATE 68 ML/MIN (>89); MAGNESIUM 1.9 MG/DL (1.5-2.5); SODIUM (NA) 140 MEQ/L (136-145)
[2017-03-13 21:00] LABS: POTASSIUM 3.9 MEQ/L (3.5-5.1)
[2017-03-13 21:13] LABS: CKMB 2.2 NG/ML (0.5-3.6)
[2017-03-13] MEDS ORDERED: SODIUM CHLORIDE 0.9% FLUSH 10 ML FLUSH IV FLUSH PRN (21:15)
[2017-03-13] MEDS ORDERED: ACETAMINOPHEN 325 MG TAB PO ONE (21:15)
[2017-03-13 21:21] LABS: AMPHETAMINE, URINE NEG (NEG); BARBITURATES, URINE NEG (NEG); COCAINE, URINE POS (NEG)
[2017-03-13 22:00] LABS: PROTHROMBIN TIME - PATIENT 10.9 SEC (9.8-11.6)
[2017-03-13 22:21] VITALS: BP 139/78; PULSE 82; RESP 18; TEMP 98.7; O2SAT 97
[2017-03-13 22:35] VITALS: PULSE 73
[2017-03-13 23:34] LABS: CREATINE KINASE 175 U/L (39-308)
[2017-03-13 23:51] LABS: CKMB 2.3 NG/ML (0.5-3.6)
[2017-03-14] MEDS ORDERED: MORPHINE SULFATE 4 MG/ML INJ IV ONE (03:00)
[2017-03-14 03:12] LABS: CREATINE KINASE 177 U/L (39-308)
[2017-03-14 03:27] LABS: CKMB 2.5 NG/ML (0.5-3.6)
[2017-03-14 04:05] VITALS: PULSE 71
[2017-03-14 07:25] VITALS: BP 118/61; PULSE 68; RESP 21; TEMP 98.4; O2SAT 98
[2017-03-14] MEDS ORDERED: SODIUM CHLORIDE 0.9% FLUSH 10 ML FLUSH IV FLUSH SCH (09:00)
[2017-03-14] MEDS ORDERED: FUROSEMIDE 20 MG TAB PO SCH (09:00)
[2017-03-14] MEDS ORDERED: PRASUGREL 10 MG TAB PO SCH (09:00)
[2017-03-14] MEDS ORDERED: ATORVASTATIN 80 MG TAB PO SCH (09:00)
[2017-03-14] MEDS ORDERED: ONDANSETRON HCL 4 MG/2 ML VIAL IV PUSH PRN (09:15)
[2017-03-14] MEDS ORDERED: ALPRAZolam 1 MG TAB PO PRN (09:15)
--- NOTE | 2017-03-14 10:01 | HHI.HP ---
[facility] Non-Staff Admission Diagnosis chest pain Diagnoses: (1) Chest pain Diagnosis: Principal Chief Complaint: chest pain Travel History International Travel<30 Days: No Contact w/Intl Traveler <30 Da: No Traveled to Known Affected Are: No History of Present Illness patient is a 61 y/o male with history of CAD- s/p CABG and stent placement presented to ER with chest pain. he says that the pain started yesterday. pain is on left side of the chest with some radiation to the left arm. the pain was associated with nausea, emesis and diaphoresis. he says that he took nitro with no significant relief but it caused some headache. he admit to using cocaine recently. Review of Systems Constitutional: COMPLAINS OF: Diaphoretic episodes, DENIES: Fever, Weight loss , Chills, Night Sweats Eyes: DENIES: Blurred vision, Diplopia, Vision loss, Double Vision Ears, nose, mouth, throat: DENIES: Tinnitus, Vertigo, Throat pain, Epistaxis Respiratory: DENIES: Apneas, Cough, Snoring, Wheezing, Hemoptysis, Sputum production, Shortness of breath Cardiovascular: COMPLAINS OF: Chest pain, DENIES: Palpitations, Syncope, Dyspnea on Exertion, PND, Lower Extremity Edema, Orthopnea, Claudication Gastrointestinal: COMPLAINS OF: Nausea, Vomiting, DENIES: Abdominal pain, Black stools, Bloody stools, Constipation, Diarrhea, Difficulty Swallowing, Anorexia Genitourinary: DENIES: Urinary frequency, Urgency, Hematuria, Dysuria Musculoskeletal: DENIES: Joint pain, Muscle aches, Stiffness, Joint Swelling Integumentary: DENIES: Rash Neurologic: DENIES: Abnormal gait, Headache, Localized weakness, Paresthesias, Seizures, Speech Problems, Tremor, Poor Balance Psychiatric: DENIES: Anxiety, Confusion, Mood changes, Depression, Hallucinations, Agitation, Suicidal Ideation, Homicidal Ideation, Delusions Past Family Social History Past Medical History CAD COPD Past Surgical History CABG Reported Medications Gabapentin 600 Mg Tab 600 Mg PO TID Furosemide 20 Mg Tab 20 Mg PO DAILY Effient (Prasugrel) 10 Mg Tab 10 Mg PO DAILY Lipitor (Atorvastatin Calcium) 80 Mg Tab 80 Mg PO DAILY Aspirin 81 Mg Chew 81 Mg CHEW DAILY Fluticasone Nasal [place] 50 Mcg/Act Naspr 1 [place] NASAL BID Ventolin Hfa 18 GM Inh (Albuterol Sulfate) 90 Mcg/Act Aer 2 Puff INH Q4-6H PRN Nitroglycerin SL (Nitroglycerin) 0.3 Mg Subl 0.3 Mg SL DIRECTED PRN ONE TABLET UNDER THE TONGUE NEEDED FOR CHEST PAIN, MAY REPEAT EVERY FIVE MINUTES FOR A TOTAL OF 3 DOSES OR CALL 911 IF NO RELIEF. Reported Oxycodone (Oxycodone HCl) 30 Mg Tab 30 Mg PO Q6H PRN Alprazolam 1 Mg Tab 1 Mg PO BID Allergies: Coded Allergies: Toradol (Verified Allergy, Severe, RASH, 03/13/17) Penicillin (Verified Allergy, Unknown, Anaphylaxis, 03/13/17) Active Ordered Medications Current Medications Aspirin (Aspirin Chew) 162 mg ONCE ONCE PO Last administered on 03/13/17 20:07 ; Start 03/13/17 at 20:15; Stop 03/13/17 at 20:16; Status DC Nitroglycerin (Nitroglycerin 2% Oint) 1 inch ONCE ONCE TOP Last administered on 03/13/17 20:08; Start 03/13/17 at 20:15; Stop 03/13/17 at 20:16; Status DC Sodium Chloride (NS Flush) 2 ml UNSCH PRN IVF FLUSH AFTER USING IV ACCESS Last administered on 03/13/17 20:08; Start 03/13/17 at 20:15 Acetaminophen (Tylenol) 650 mg ONCE ONCE PO Last administered on 03/13/17 21: 25; Start 03/13/17 at 21:15; Stop 03/13/17 at 21:16; Status DC Sodium Chloride (NS Flush) 2 ml UNSCH PRN IV FLUSH FLUSH AFTER USING IV ACCESS ; Start 03/13/17 at 21:15 Sodium Chloride (NS Flush) 2 ml BID IV FLUSH ; Start 03/14/17 at 09:00 Morphine Sulfate (Morphine Inj) 4 mg ONCE ONCE IV Last administered on 03:28; Start 03/14/17 at 03:00; Stop 03/14/17 at 03:01; Status DC Atorvastatin Calcium (Lipitor) 80 mg DAILY PO ; Start 03/14/17 at 09:00 Furosemide (Lasix) 20 mg DAILY PO ; Start 03/14/17 at 09:00 Gabapentin (Neurontin) 600 mg TID PO ; Start 03/14/17 at 09:00 Prasugrel (Effient) 10 mg DAILY PO ; Start 03/14/17 at 09:00 Ondansetron HCl (Zofran Inj) 4 mg Q6HR PRN IV PUSH NAUSEA; Start 03/14/17 at 09: 15 Alprazolam (Xanax) 1 mg BID PRN PO ANXIETY; Start 03/14/17 at 09:15 Oxycodone HCl (Roxicodone) 30 mg Q6H PRN PO PAIN SCALE 5-10; Start 03/14/17 at 09:30 Family History heart disease in all family members. Social History smokes a few cigarettes a day. Physical Exam Vital Signs Vital Signs Date Time Temp Pulse Resp B/P Pulse Ox O2 Delivery O2 Flow Rate FiO2 03/14/17 07:25 98.4 68 21 118/61 98 03/14/17 04:05 71 03/13/17 22:35 73 03/13/17 22:21 98.7 82 18 139/78 97 03/13/17 20:09 100 Nasal Cannula 2 03/13/17 20:08 80 22 138/79 100 Nasal Cannula 2 03/13/17 19:57 83 18 149/86 99 Nasal Cannula 2 03/13/17 19:45 98.2 91 16 153/79 98 Room Air Physical Exam GENERAL: This is a well-nourished, well-developed patient, in no apparent distress. SKIN: No rashes, ecchymoses or lesions. Cool and dry. HEAD: Atraumatic. Normocephalic. No temporal or scalp tenderness. EYES: Pupils equal round and reactive. Extraocular motions intact. No scleral icterus. No injection or drainage. ENT: Nose without bleeding, purulent drainage or septal hematoma. Throat without erythema, tonsillar hypertrophy or exudate. Uvula midline. Airway patent. NECK: Trachea midline. No JVD or lymphadenopathy. Supple, nontender, no meningeal signs. CARDIOVASCULAR: Regular rate and rhythm without murmurs, gallops, or rubs. RESPIRATORY: Clear to auscultation. Breath sounds equal bilaterally. No wheezes , rales, or rhonchi. GASTROINTESTINAL: Abdomen soft, non-tender, nondistended. No hepato-splenomegaly , or palpable masses. No guarding. MUSCULOSKELETAL: Extremities without clubbing, cyanosis, or edema. No joint tenderness, effusion, or edema noted. No calf tenderness. Negative Homans sign bilaterally. NEUROLOGICAL: Awake and alert. Cranial nerves II through XII intact. Motor and sensory grossly within normal limits. Five out of 5 muscle strength in all muscle groups. Normal speech. Laboratory Laboratory Tests Test 03/13/17 03/13/17 03/13/17 03/13/17 20:10 21:00 21:40 23:00 White Blood Count 9.0 Red Blood Count 4.52 Hemoglobin 12.4 Hematocrit 37.0 Mean Corpuscular Volume 81.7 Mean Corpuscular Hemoglobin 27.5 Mean Corpuscular Hemoglobin 33.6 Concent Red Cell Distribution Width 16.3 Platelet Count 292 Mean Platelet Volume 9.1 Neutrophils (%) (Auto) 63.9 Lymphocytes (%) (Auto) 26.2 Monocytes (%) (Auto) 8.9 Eosinophils (%) (Auto) 0.5 Basophils (%) (Auto) 0.5 Neutrophils # (Auto) 5.7 Lymphocytes # (Auto) 2.4 Monocytes # (Auto) 0.8 Eosinophils # (Auto) 0.0 Basophils # (Auto) 0.0 CBC Comment DIFF FINAL Differential Comment Sodium Level 140 Potassium Level 3.9 Chloride Level 106 Carbon Dioxide Level 24.9 Anion Gap 9 Blood Urea Nitrogen 10 Creatinine 1.11 Estimat Glomerular Filtration 68 Rate Random Glucose 125 Calcium Level 8.6 Magnesium Level 1.9 Total Creatine Kinase 137 175 Creatine Kinase MB 2.2 2.3 Troponin I LESS THAN 0.02 LESS THAN 0.02 Urine Opiates Screen POS Urine Barbiturates Screen NEG Urine Amphetamines Screen NEG Urine Benzodiazepines Screen NEG Urine Cocaine Screen POS Urine Cannabinoids Screen POS Prothrombin Time 10.9 Prothromb Time International 1.0 Ratio Activated Partial 27.0 Thromboplast Time Test 03/14/17 02:20 Total Creatine Kinase 177 Creatine Kinase MB 2.5 Troponin I LESS THAN 0.02 Result Diagram: 03/13/17200903/13/172009 Imaging Last Impressions Chest X-Ray 03/13/172000 Signed Impressions: Service Date/Time: Monday, March 13, 2017 20:17 - CONCLUSION: No acute disease. Billy Bradford MD EKG; NSR with no acute ST-T changes. Assessment and Plan Assessment and Plan A/P - chest pain with history of CAD- s/p CABG and stent placement cardiac enzymes negative- resumed effient- continue statin- cardiology consulted. -COPD with no exacerbation; albuterol as needed. -DVT prophylaxis with SCD's Discussed Condition With the patient. Problem Qualifiers (1) Chest pain: Qualified Code: R07.9 - Chest pain, unspecified type Sandrine Tello MD March 14, 2017 10:01
[2017-03-14] MEDS: GABAPENTIN 300 MG CAP PO SCH ×2 (10:03→12:53)
[2017-03-14] MEDS ORDERED: ISOSORBIDE MONONITRATE 60 MG TAB PO SCH (10:45)
--- NOTE | 2017-03-14 11:00 | EKG ---
Date Performed: 03/13/2017 Time Performed: 23:12:41 PTAGE: 61 years EKG: Sinus rhythm NORMAL ECG PREVIOUS TRACING : 03/13/2017 19.53 Since previous tracing, no significant change noted DOCTOR: Arnaud Jordan Interpretating Date/Time 03/14/2017 11:00:07
--- NOTE | 2017-03-14 11:00 | EKG ---
Date Performed: 03/14/2017 Time Performed: 02:08:27 PTAGE: 61 years EKG: Sinus rhythm MINIMAL ST DEPRESSION BORDERLINE ECG PREVIOUS TRACING : 03/13/2017 23.12 Since previous tracing, no significant change noted DOCTOR: Arnaud Jordan Interpretating Date/Time 03/14/2017 10:59:10
--- NOTE | 2017-03-14 11:03 | EKG ---
Date Performed: 03/13/2017 Time Performed: 19:53:37 PTAGE: 61 years EKG: Sinus rhythm NORMAL ECG PREVIOUS TRACING : 02/25/2017 16.24 Since previous tracing, no significant change noted DOCTOR: Arnaud Jordan Interpretating Date/Time 03/14/2017 11:01:28
--- NOTE | 2017-03-14 11:20 | MB ---
cc: LEONID LUNA DATE OF CONSULTATION: 03/14/2017 INDICATION Chest pain. HISTORY OF PRESENT ILLNESS This is a 61-year-old gentleman who I was consulted on for service call. The patient is not established patient in my practice. I had seen him in the past. Back in November he presented with acute coronary syndrome and ST depression. He has recently undergone intervention by another silk printer at [facility], at which time he had a stent placed in the ostial of the left anterior descending which seemed to inadvertently extend into the left main which was undersized. He has prior history of bypass surgery with the LAD grafted in the right coronary, both of which were widely patent. At that time he underwent a rather complex thrombectomy and intervention which involved stenting into the ramus intermedius branch and left main with a repeat balloon angioplasty of the ostial left anterior descending coronary stent. The final result was very good. He was continued on antiplatelet therapy. He now comes in with frequent hospitalizations for atypical symptoms, both chest pain and syncope. He seems to have some component of malingering and pain seeking medications. He also states that he used cocaine 3 days ago. His EKG and troponins are unremarkable and he looks comfortable, sleeping when I walk in the room. PAST MEDICAL HISTORY 1. Coronary artery disease with bypass surgery and percutaneous intervention. 2. COPD. MEDICATION Reported medications: 1. Gabapentin. 2. Furosemide. 3. Effient. 4. Lipitor. 5. Aspirin. 6. Ventolin. ALLERGIES TORADOL, PENICILLIN. FAMILY HISTORY Denies any family history of early coronary artery disease or sudden cardiac . SOCIAL HISTORY He does report continued tobacco abuse. Also states cocaine use 3 days ago. Denies any alcohol use. REVIEW OF SYSTEMS A 12-point review of systems was performed and negative unless otherwise noted is the history of present illness. PHYSICAL EXAMINATION VITAL SIGNS: Temperature 94, pulse 68, blood pressure was 118/61 mmHg. GENERAL: Alert and oriented x3, in no acute distress. HEENT: Exam shows pupils are reactive to light and accommodation. Extraocular movements are intact. No elevation in jugular venous distension. No thyromegaly or lymphadenopathy. No carotid bruits. LUNGS: Clear to auscultation bilaterally. CARDIOVASCULAR: Regular rate and rhythm without murmurs, rubs or gallops. ABDOMEN: Nontender, nondistended. Good bowel sounds. No hepatosplenomegaly. EXTREMITIES: No clubbing, cyanosis or edema. Good peripheral pulses. Cranial nerves intact. Motor and sensory grossly intact. LABORATORY DATA WBC 9.0, hemoglobin 12.4, platelet count 292. The INR is 1. Sodium 140, potassium 3.9, BUN is 10, creatinine 1.11, troponins negative x3. ASSESSMENT 1. Atypical chest pain. 2. History of coronary artery disease, prior bypass surgery with percutaneous intervention. 3. COPD. 4. Cocaine use. 5. History of noncompliance. PLAN The patient's symptoms are very atypical. He has had multiple hospitalizations for chest pain and prior negative stress test. His EKG is otherwise unremarkable. Troponins negative x3. I am going to add Isosorbide to his medical regimen, although I do not think he is having chest pain. I encouraged him to avoid cocaine use to exacerbate his issues with the heart. He is okay for discharge from a cardiac perspective. He needs to follow up with his primary care physician. MD EUGENE Umana/PROSPER /10:30 AM /10:37 AM ANTOINETTE
[2017-03-14] MEDS ORDERED: ISOS60TA PO (11:30)
[2017-03-14 11:42] VITALS: BP 164/78; PULSE 78; RESP 22; TEMP 98.4; O2SAT 100
[2017-03-14] MEDS ORDERED: PROT40TA PO (12:02)
== END 2017-03-14 15:09 | disposition home or self-care (01) ==
LOC: NEPC 19:43 → NEDA 21:12 → NEPHCDU 22:14
PROVIDERS: ADMIT Internal Medicine; ATTEND Internal Medicine
DX: R07.89 Other chest pain (principal); I25.10 Atherosclerotic heart disease of native coronary artery without angina pectoris; J44.9 Chronic obstructive pulmonary disease, unspecified; I10 Essential (primary) hypertension; I25.2 Old myocardial infarction; F17.210 Nicotine dependence, cigarettes, uncomplicated; M19.90 Unspecified osteoarthritis, unspecified site; K21.9 Gastro-esophageal reflux disease without esophagitis; E78.00 Pure hypercholesterolemia, unspecified; F41.9 Anxiety disorder, unspecified; F14.90 Cocaine use, unspecified, uncomplicated; F32.9 Major depressive disorder, single episode, unspecified; Z79.82 Long term (current) use of aspirin; Z95.1 Presence of aortocoronary bypass graft; Z79.51 Long term (current) use of inhaled steroids; Z88.0 Allergy status to penicillin; Z95.5 Presence of coronary angioplasty implant and graft; Z88.6 Allergy status to analgesic agent; Z91.19 Patient's noncompliance with other medical treatment and regimen
CPT/HCPCS: 71010; 80048; 80307; 82550; 82552; 83735; 84484; 85025; 85610; 85730; 93005; 99285; G0378; J2270; J2405

== ENCOUNTER 2017-03-25 20:22 | Emergency (ER) | payer OTHER ==
[~2017-03-25] VITALS: Ht 167.6 cm; Wt 67.0 kg
[~2017-03-25 20:22] MED LIST changes: -ISOS30TA3 PO; +ISOS60TA PO
[2017-03-25 20:23] VITALS: BP 154/79; PULSE 107; RESP 18; TEMP 98.7; O2SAT 97
--- NOTE | 2017-03-25 23:05 | PD ---
HPI Chief Complaint: Dizziness Time Seen by Provider: 22:59 Travel History International Travel<30 days: No Contact w/Intl Traveler<30days: No Traveled to known affect area: No History of Present Illness HPI 61-year-old male came to the emergency room with history of dizziness and not feeling well. He was also complaining of chest pain. Patient has history of coronary artery disease and has had stents in the past. However he was also admitted in [facility] for past almost 1 week as per him. He was discharged home earlier today. He says there was workup done there and he was discharged home with prescriptions. He says he filled the prescriptions. He also has primary care doctor but came here because of the ongoing symptoms. His vital signs are stable. [facility] Past Medical History Narrative Medical List of his past medical, surgical, social and family history was reviewed from the nursing note. Hx Anticoagulant Therapy: Yes (He does not know the name of the medication) Arthritis: Yes Anxiety: Yes Depression: Yes Cardiac Catheterization: Yes Cardiovascular Problems: Yes High Cholesterol: Yes Chest Pain: Yes COPD: Yes Coronary Artery Disease: Yes Diminished Hearing: No Gastrointestinal Disorders: Yes GERD: Yes Hiatal Hernia: Yes Hypertension: Yes Implanted Vascular Access Dvce: Yes Kidney Stones: Yes Neurologic: Yes (multiple episodes of syncope, EVAL BY NEURO WHO STATES "CARDIAC") Immunizations Current: Yes Migraines: Yes Myocardial Infarction: Yes Tetanus Vaccination: < 5 Years Influenza Vaccination: Yes Past Surgical History Cardiac Surgery: Yes Coronary Artery Bypass Graft: Yes Coronary Stent: Yes (X5) Other Surgery: Yes (CABG, STENTING) Family History Family Myocardial Infarction: Yes Social History Alcohol Use: No Tobacco Use: No Substance Use: Yes (marijuana) Allergies-Medications (Allergen,Severity, Reaction): Coded Allergies: Toradol (Verified Allergy, Severe, RASH, 03/26/17) Penicillin (Verified Allergy, Unknown, Anaphylaxis, 03/26/17) Comments List of his allergies reviewed from the nursing note. Reported Meds & Prescriptions Reported Meds & Active Scripts Active Protonix (Pantoprazole Sodium) 40 Mg Tab 40 Mg PO DAILY Isosorbide Mononitrate ER (Isosorbide Mononitrate) 60 Mg Tab 60 Mg PO BID 30 Days Gabapentin 600 Mg Tab 600 Mg PO TID Furosemide 20 Mg Tab 20 Mg PO DAILY Effient (Prasugrel) 10 Mg Tab 10 Mg PO DAILY Lipitor (Atorvastatin Calcium) 80 Mg Tab 80 Mg PO DAILY Aspirin 81 Mg Chew 81 Mg CHEW DAILY Fluticasone Nasal [place] 50 Mcg/Act Naspr 1 [place] NASAL BID Ventolin Hfa 18 GM Inh (Albuterol Sulfate) 90 Mcg/Act Aer 2 Puff INH Q4-6H PRN Nitroglycerin SL (Nitroglycerin) 0.3 Mg Subl 0.3 Mg SL DIRECTED PRN ONE TABLET UNDER THE TONGUE NEEDED FOR CHEST PAIN, MAY REPEAT EVERY FIVE MINUTES FOR A TOTAL OF 3 DOSES OR CALL 911 IF NO RELIEF. Reported Oxycodone (Oxycodone HCl) 30 Mg Tab 30 Mg PO Q6H PRN Alprazolam 1 Mg Tab 1 Mg PO BID Narrative Medication List of his home medications reviewed from the nursing note. Review of Systems Except as stated in HPI: all other systems reviewed are Neg Physical Exam Narrative GENERAL: Awake, alert, no obvious distress SKIN: Focused skin assessment warm/dry. HEAD: Atraumatic. Normocephalic. EYES: Pupils equal and round. No scleral icterus. No injection or drainage. ENT: No nasal bleeding or discharge. Mucous membranes pink and moist. NECK: Trachea midline. No JVD. CARDIOVASCULAR: Regular rate and rhythm. No murmur appreciated. RESPIRATORY: No accessory muscle use. Clear to auscultation. Breath sounds equal bilaterally. GASTROINTESTINAL: Abdomen soft, non-tender, nondistended. Hepatic and splenic margins not palpable. MUSCULOSKELETAL: No obvious deformities. No clubbing. No cyanosis. No edema. NEUROLOGICAL: Awake and alert. No obvious cranial nerve deficits. Motor grossly within normal limits. Normal speech. PSYCHIATRIC: Appropriate mood and affect; insight and judgment normal. Data Data Last Documented VS Vital Signs Date Time Temp Pulse Resp B/P Pulse Ox O2 Delivery O2 Flow Rate FiO2 03/25/17 20:45 16 03/25/17 20:23 98.7 107 154/79 97 Room Air Orders Electrocardiogram (03/25/17 ) MDM Medical Decision Making Medical Screen Exam Complete: Yes Emergency Medical Condition: Yes Medical Record Reviewed: Yes Interpretation(s) Twelve-lead EKG was reviewed by me. Normal sinus rhythm, normal axis, nonspecific ST-T wave changes. Heart rate of 61 bpm. Differential Diagnosis Chronic chest pain, dizziness Narrative Course 12:23 AM paperwork was just faxed from [facility]. Patient initially left against medical advise but then came back because he was dizzy. Then he started demanding morphine otherwise he would not go for any tests. This is as per the documentation in the paperwork by their staff. Eventually he had carotid ultrasound, blood work and 5 sets of troponin during his hospitalization. Those were all within normal limits. Given all this extensive workup I'm comfortable discharging this patient home without any further workup at this present time. Procedures EKG Prior to Arrival: No Diagnosis Primary Impression: Chronic chest pain Referrals: Primary Care Physician Additional Instructions: Please follow-up with your primary care. Med/Other Pt SpecificInfo: No Change to Meds Disposition: 01 DISCHARGE HOME Condition: Stable Lei Melendez MD March 25, 2017 23:05
--- NOTE | 2017-03-26 13:37 | EKG ---
Date Performed: 03/25/2017 Time Performed: 23:16:05 PTAGE: 61 years EKG: Sinus rhythm NORMAL ECG INTERPRETATION BASED ON A DEFAULT AGE OF 40 YEARS Compared to prior tracing no significan t change DOCTOR: Mario Mendez Interpretating Date/Time 03/26/2017 13:35:53
== END 2017-03-26 00:20 | disposition home or self-care (01) ==
LOC: NEPD 20:22
DX: R07.9 Chest pain, unspecified (principal); I25.10 Atherosclerotic heart disease of native coronary artery without angina pectoris; I10 Essential (primary) hypertension; F12.90 Cannabis use, unspecified, uncomplicated; Z95.1 Presence of aortocoronary bypass graft; Z88.0 Allergy status to penicillin; Z79.01 Long term (current) use of anticoagulants
CPT/HCPCS: 93005

== ENCOUNTER 2017-03-26 07:03 | Observation (INO) | payer OTHER ==
[~2017-03-26] VITALS: Ht 167.6 cm; Wt 69.0 kg
[2017-03-26 07:08] VITALS: BP 179/77; PULSE 68; RESP 20; O2SAT 98
--- NOTE | 2017-03-26 07:36 | PD ---
HPI Chief Complaint: Fall Time Seen by Provider: 07:17 Travel History International Travel<30 days: No Contact w/Intl Traveler<30days: No Traveled to known affect area: No History of Present Illness HPI 61-year-old male complains of headache, neck pain, shaking, syncope. Patient has history of recurrent extremity shaking and syncope. Patient has been seen by neurologist Dr. Tate. Patient states that he had a syncopal episode this morning and fell and hit the front of the head and the left-sided head. Patient denies any visual change. Patient denies any nausea vomiting. Patient complaining of left-sided neck pain. Patient denies any chest pain or shortness of breath. Patient denies abdominal pain. Patient denies any focal weakness or numbness of extremity. Patient has history of recurrent chest pain that has been seen at the emergency room at [facility] recently. Patient has history of CAD status post stent placement. Patient also status post CABG in the past. Patient is on aspirin 81 mg daily and Effient 10 mg daily. Patient denies any chest pain this morning. Patient denies any alcohol or drug abuse recently. 10:30 AM. Patient now complaining of left elbow pain. PFSH Past Medical History Hx Anticoagulant Therapy: Yes (He does not know the name of the medication) Arthritis: Yes Anxiety: Yes Depression: Yes Cardiac Catheterization: Yes Cardiovascular Problems: Yes High Cholesterol: Yes Chest Pain: Yes COPD: Yes Coronary Artery Disease: Yes Diminished Hearing: No Gastrointestinal Disorders: Yes GERD: Yes Hiatal Hernia: Yes Hypertension: Yes Implanted Vascular Access Dvce: Yes Kidney Stones: Yes Neurologic: Yes (multiple episodes of syncope, EVAL BY NEURO WHO STATES "CARDIAC") Immunizations Current: Yes Migraines: Yes Myocardial Infarction: Yes Past Surgical History Cardiac Surgery: Yes Coronary Artery Bypass Graft: Yes Coronary Stent: Yes (X5) Other Surgery: Yes (CABG, STENTING) Social History Alcohol Use: No Tobacco Use: No Substance Use: Yes (marijuana) Allergies-Medications (Allergen,Severity, Reaction): Coded Allergies: Toradol (Verified Allergy, Severe, RASH, 03/26/17) Penicillin (Verified Allergy, Unknown, Anaphylaxis, 03/26/17) Reported Meds & Prescriptions Reported Meds & Active Scripts Active Protonix (Pantoprazole Sodium) 40 Mg Tab 40 Mg PO DAILY Isosorbide Mononitrate ER (Isosorbide Mononitrate) 60 Mg Tab 60 Mg PO BID 30 Days Gabapentin 600 Mg Tab 600 Mg PO TID Furosemide 20 Mg Tab 20 Mg PO DAILY Effient (Prasugrel) 10 Mg Tab 10 Mg PO DAILY Lipitor (Atorvastatin Calcium) 80 Mg Tab 80 Mg PO DAILY Aspirin 81 Mg Chew 81 Mg CHEW DAILY Fluticasone Nasal [place] 50 Mcg/Act Naspr 1 [place] NASAL BID Ventolin Hfa 18 GM Inh (Albuterol Sulfate) 90 Mcg/Act Aer 2 Puff INH Q4-6H PRN Nitroglycerin SL (Nitroglycerin) 0.3 Mg Subl 0.3 Mg SL DIRECTED PRN ONE TABLET UNDER THE TONGUE NEEDED FOR CHEST PAIN, MAY REPEAT EVERY FIVE MINUTES FOR A TOTAL OF 3 DOSES OR CALL 911 IF NO RELIEF. Reported Oxycodone (Oxycodone HCl) 30 Mg Tab 30 Mg PO Q6H PRN Alprazolam 1 Mg Tab 1 Mg PO BID Review of Systems General / Constitutional: No: Fever Eyes: No: Visual changes HENT: Positive: Headaches, Neck Pain Cardiovascular: No: Chest Pain or Discomfort Respiratory: No: Shortness of Breath Gastrointestinal: No: Abdominal Pain Genitourinary: No: Dysuria Musculoskeletal: No: Pain Skin: No Rash Neurologic: Positive: Syncope, No: Weakness Psychiatric: No: Depression Endocrine: No: Polydipsia Hematologic/Lymphatic: No: Easy Bruising Physical Exam Narrative GENERAL: Well-nourished, well-developed patient. SKIN: Focused skin assessment warm/dry. HEAD: Normocephalic. EYES: No scleral icterus. No injection or drainage. Pupils 3 mm equal reactive. NECK: Supple, trachea midline. No JVD or lymphadenopathy. CARDIOVASCULAR: Regular rate and rhythm without murmurs, gallops, or rubs. RESPIRATORY: Breath sounds equal bilaterally. No accessory muscle use. GASTROINTESTINAL: Abdomen soft, non-tender, nondistended. MUSCULOSKELETAL: No cyanosis, or edema. Mild soft tissue swelling tenderness posterior aspect the left elbow joint. Full range of motion the left elbow. BACK: Nontender without obvious deformity. No CVA tenderness. Neurologic exam: Patient had trembling of the extremity. No obvious focal neurological deficit. Deep tendon reflexes 2+ and equal. Negative Babinski. Data Data Last Documented VS Vital Signs Date Time Temp Pulse Resp B/P Pulse Ox O2 Delivery O2 Flow Rate FiO2 03/26/17 10:44 70 16 156/74 98 Room Air Orders Complete Blood Count With Diff (03/26/17 07:29) Basic Metabolic Panel (Bmp) (03/26/17 07:29) Troponin I (03/26/17 07:29) Prothrombin Time / Inr (Pt) (03/26/17 07:29) Act Partial Throm Time (Ptt) (03/26/17 07:29) Iv Access Insert/Monitor (03/26/17 07:29) Ecg Monitoring (03/26/17 07:29) Oximetry (03/26/17 07:29) Ct Brain W/O Iv Contrast(Rout) (03/26/17 07:29) Ct Cerv Spine W/O Contrast (03/26/17 07:29) Elbow, Complete (4 Vws) (03/26/17 09:48) Labs Laboratory Tests Test 03/26/17 07:50 White Blood Count 15.2 TH/MM3 Red Blood Count 5.35 MIL/MM3 Hemoglobin 14.0 GM/DL Hematocrit 44.5 % Mean Corpuscular Volume 83.2 FL Mean Corpuscular Hemoglobin 26.2 PG Mean Corpuscular Hemoglobin 31.5 % Concent Red Cell Distribution Width 16.3 % Platelet Count 283 TH/MM3 Mean Platelet Volume 8.9 FL Neutrophils (%) (Auto) 68.7 % Lymphocytes (%) (Auto) 23.4 % Monocytes (%) (Auto) 7.0 % Eosinophils (%) (Auto) 0.8 % Basophils (%) (Auto) 0.1 % Neutrophils # (Auto) 10.4 TH/MM3 Lymphocytes # (Auto) 3.6 TH/MM3 Monocytes # (Auto) 1.1 TH/MM3 Eosinophils # (Auto) 0.1 TH/MM3 Basophils # (Auto) 0.0 TH/MM3 CBC Comment DIFF FINAL Differential Comment Prothrombin Time 10.6 SEC Prothromb Time International 1.0 RATIO Ratio Activated Partial 26.1 SEC Thromboplast Time Sodium Level 141 MEQ/L Potassium Level 4.2 MEQ/L Chloride Level 104 MEQ/L Carbon Dioxide Level 29.4 MEQ/L Anion Gap 8 MEQ/L Blood Urea Nitrogen 31 MG/DL Creatinine 1.11 MG/DL Estimat Glomerular Filtration 68 ML/MIN Rate Random Glucose 80 MG/DL Calcium Level 8.9 MG/DL Troponin I 0.02 NG/ML MDM Medical Decision Making Medical Screen Exam Complete: Yes Emergency Medical Condition: Yes Interpretation(s) Last Impressions Head CT 03/26/17728 Signed Impressions: Service Date/Time: Sunday, March 26, 2017 08:05 - CONCLUSION: Questionable minimal subarachnoid hemorrhage on the left. No midline shift or mass effect. Darren Mueller MD Cervical Spine CT 03/26/17728 Signed Impressions: Service Date/Time: Sunday, March 26, 2017 08:05 - CONCLUSION: No fracture or subluxation. Darren Mueller MD 9:31 AM. CBC WBC 15.2. Normal differential. BMP within normal limit. Troponin normal. Differential Diagnosis Differential diagnosis including contusion, concussion, intracranial hemorrhage , fracture. Narrative Course 61-year-old male with syncope and head and neck injury. Patient's on aspirin and Effient. Radiology report as possible subdural hemorrhage. I spoke with Dr. Avitia, neurosurgeon roll contour grinder. Advised that the CT scan is normal and patient can be discharged. Diagnosis Primary Impression: Closed head injury Qualified Code: S09.90XA - Closed head injury, initial encounter Additional Impression: Left elbow contusion Admitting Information Admitting Physician Requests: Admit Patient Instructions: General Instructions Additional Instructions: Head trauma instructions given. Follow-up with personal physician. Return as needed. Return if increasing headache, persistent vomiting, weakness or numbness. Disposition: 01 DISCHARGE HOME Condition: Stable Vernon Weber MD March 26, 2017 07:36
[2017-03-26 08:15] LABS: AUTOMATED NEUTROPHIL # 10.4 TH/MM3 (1.8-7.7); BASOPHIL % 0.1 % (0.0-2.0); EOSINOPHIL # 0.1 TH/MM3 (0-0.4); EOSINOPHIL % 0.8 % (0.0-4.0); HEMATOCRIT 44.5 % (39.0-51.0); HEMO FLAGS DIFF FINAL; LYMPH % 23.4 % (9.0-44.0); LYMPHOCYTE # 3.6 TH/MM3 (1.0-4.8); MEAN CELL VOLUME 83.2 FL (80.0-100.0); MEAN CORPUSCULAR HEMOGLOBIN 26.2 PG (27.0-34.0); MEAN CORPUSCULAR HGB CONC 31.5 % (32.0-36.0); NEUT % 68.7 % (16.0-70.0); PLATELET COUNT 283 TH/MM3 (150-450); RED BLOOD COUNT 5.35 MIL/MM3 (4.50-5.90); RED CELL DISTRIBUTION WIDTH 16.3 % (11.6-17.2); WHITE BLOOD COUNT 15.2 TH/MM3 (4.0-11.0)
[2017-03-26 08:20] LABS: APTT (PATIENT) 26.1 SEC (24.3-30.1); PROTHROMBIN TIME - PATIENT 10.6 SEC (9.8-11.6)
--- NOTE | 2017-03-26 08:21 | RADRPT ---
EXAM DATE/TIME: 03/26/2017 08:05 [facility] COMPARISON: CT BRAIN W/O CONTRAST, February 17, 2017, 16:52. INDICATIONS : Trauma. Fall. Hit head. Head and neck pain. RADIATION DOSE: 36.05 CTDIvol (mGy) MEDICAL HISTORY : Cardiovascular disease. Chronic obstructive pulmonary disease. Hypertension. SURGICAL HISTORY : CABG ENCOUNTER: Initial ACUITY: 1 day PAIN SCALE: 7/10 LOCATION: cranial TECHNIQUE: Multiple contiguous axial images were obtained of the head. Using automated exposure control and adj ustment of the mA and/or kV according to patient size, radiation dose was kept as low as reasonably a chievable to obtain optimal diagnostic quality images. FINDINGS: CEREBRUM: Questionable minimal subarachnoid hemorrhage along the posterior sylvian fissure on the left. The mariano tricles are normal for age. No evidence of midline shift, mass lesion, or acute infarction. No extr a-axial fluid collections are seen. POSTERIOR FOSSA: The cerebellum and brainstem are intact. The 4th ventricle is midline. The cerebellopontine angle i s unremarkable. EXTRACRANIAL: The visualized portion of the orbits is intact. SKULL: The calvaria is intact. No evidence of skull fracture. CONCLUSION: Questionable minimal subarachnoid hemorrhage on the left. No midline shift or mass effect. Darren Mueller MD on March 26, 2017 at 8:16 Board Certified Radiologist. This report was verified electronically.
--- NOTE | 2017-03-26 08:28 | RADRPT ---
EXAM DATE/TIME: 03/26/2017 08:05 [facility] COMPARISON: No previous studies available for comparison. INDICATIONS : Trauma. Fall. Hit head. Head and neck pain. RADIATION DOSE: 18.23 CTDIvol (mGy) MEDICAL HISTORY : Chronic obstructive pulmonary disease. Cardiovascular disease Hypertension. SURGICAL HISTORY : CABG ENCOUNTER: Initial ACUITY: 1 day PAIN SCALE: 7/10 LOCATION: neck TECHNIQUE: Volumetric scanning of the cervical spine was performed. Multiplanar reconstructions in the sagittal, coronal and oblique axial planes were performed. Using automated exposure control and adjustment o f the mA and/or kV according to patient size, radiation dose was kept as low as reasonably achievable to obtain optimal diagnostic quality images. FINDINGS: VERTEBRAE: Normal vertebral body height. Degenerative changes C5-C7. Multilevel posterior disc osteophyte comple xes at C3-4, C4-5,C5-6 and C6-7 levels without canal stenosis. No significant neural frontal narrowi ng. No canal stenosis. ALIGNMENT: No evidence of subluxation. CONCLUSION: No fracture or subluxation. Darren Mueller MD on March 26, 2017 at 8:24 Board Certified Radiologist. This report was verified electronically.
[2017-03-26 08:30] LABS: BICARBONATE 29.4 MEQ/L (21.0-32.0); POTASSIUM 4.2 MEQ/L (3.5-5.1)
[2017-03-26 10:44] VITALS: BP 156/74; PULSE 70; RESP 16; O2SAT 98
--- NOTE | 2017-03-26 10:46 | RADRPT ---
EXAM DATE/TIME: 03/26/2017 10:22 [facility] COMPARISON: No previous studies available for comparison. INDICATIONS : Syncope with multiple falls. MEDICAL HISTORY : None. SURGICAL HISTORY : None. ENCOUNTER: Initial ACUITY: 2 days PAIN SCORE: 4/10 LOCATION: Left posterior elbow FINDINGS: Multiple view examination of the left elbow demonstrates no soft tissue swelling, joint effusion, or fracture. The osseous structures are in normal alignment. Bony mineralization is normal. CONCLUSION: 1. There is no evidence of acute fracture. Jeremias Byers MD on March 26, 2017 at 10:43 Board Certified Radiologist. This report was verified electronically.
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
[2017-03-26] MEDS ORDERED: SODIUM CHLORIDE 0.9% FLUSH 10 ML FLUSH IV FLUSH PRN (12:45)
[2017-03-26] MEDS ORDERED: MAGNESIUM HYDROXIDE SUSP 30 ML CUP PO PRN (12:45)
[2017-03-26] MEDS ORDERED: ALBUTEROL SULFATE 90 MCG/ACT HFA 18 GM INHALER INH PRN (13:45)
[2017-03-26] MEDS: HEPARIN SODIUM - SQ 10,000 UNITS/ML VIAL SQ SCH (14:00)
[2017-03-26] MEDS: NICOTINE 14 MG/24 HR PATCH T-DERMAL SCH (14:00)
[2017-03-26 15:41] VITALS: BP 99/60; PULSE 68; RESP 18; TEMP 97.6; O2SAT 96
--- NOTE | 2017-03-26 16:59 | MB ---
cc: REJI GAVIN MD DATE OF CONSULTATION 03/26/17 REASON FOR CONSULTATION Syncope. HISTORY OF PRESENT ILLNESS Mr. Zazueta is a 61-year-old man who does have a history of previous CABG in 2013 and subsequent stenting [place] [address] Ivey. I saw him medical science liaison in January of this year at which time he presented with syncope after running out of his medications. Today he presents with three episodes of syncope in the last 24-48 hours. He reports he has passed out 12 to 15 times this year. He states that it is not related to his medications. He notes that he went to [place] last week and did not have any difficulties then. As well he has used marijuana and cocaine and not had any difficulties with syncope while using these other illicit drugs to assist with his pain control. PAST MEDICAL HISTORY Significant for hypertension, hyperlipidemia, smoking, ischemic cardiomyopathy with an EF of 45-50%, CAD, chronic pain from multiple neck injuries and multiple falls as well as syncope. ALLERGIES ALLERGY TO PENICILLIN AND TORADOL. SOCIAL HISTORY The patient does smoke. FAMILY HISTORY Positive for CAD. REVIEW OF SYSTEMS Except as mentioned in the HPI all 12 systems are negative. MEDICATIONS Outpatient medications reportedly include: 1. Protonix. 2. Imdur. 3. Gabapentin. 4. Furosemide. 5. Effient. 6. Lipitor. 7. Aspirin. 8. Fluticasone. 9. Ventolin. 10. Nitroglycerin p.r.n. PHYSICAL EXAMINATION VITAL SIGNS: On physical examination vital signs are 97.6, 68, 18, 99/60. GENERAL: In general he is a well-appearing man who is no apparent distress. NECK: The neck is free from JVD. LUNGS: Lungs are bilaterally clear to auscultation. CARDIOVASCULAR: On examination he has a normal S1-S2. I did not appreciate any murmurs, rubs or gallops. ABDOMEN: The abdomen is soft. EXTREMITIES: Free from edema. LABORATORY DATA Show a white count of 15.2 and serial troponins of less than 0.02. Telemetry shows normal sinus rhythm. IMPRESSION Recurrent syncopal episodes: The patient does have relative hypotension today. I do agree that the labile blood pressure is likely at least in part to blame and related to both his BP meds and his pain meds. I had an extensive discussion with the patient about both his narcotics and his gabapentin which causes syncope in 1%. He reports that it is absolutely unacceptable to decrease these secondary to his chronic pain and [id number]. He was rather emphatic that he did want the blood pressure pills cut back. I did point out that the beta blockers did have life saving effects. He was aware and still felt it was related to his blood pressure and wanted to cut back on these meds. Thus at this point my recommendation would be to stop the Lasix, metoprolol and gabapentin. CAD: The patient is status post stent. Consideration may be given to stopping the Effient secondary to the frequent falls. Though this obviously also would put him at higher risk for a cardiac event stopping his Plavix sooner than 6 months. I would continue this till the 6-month marked which would be an additional 2 months and then consider stopping the Effient. DISPOSITION I would continue to monitor the patient on telemetry overnight and is reasonable for discharge from a CV perspective if his telemetry is normal in the a.m. Also of note, I did offer the patient a loop recorder which he declined. Reji Gavin M.D. BOLA/JOSÉ /4:20 PM /4:39 PM
[2017-03-26 17:36] LABS: FREE T4 0.83 NG/DL (0.76-1.46)
[2017-03-26] MEDS ORDERED: GABAPENTIN 300 MG CAP PO SCH (18:00)
[2017-03-26 18:09] LABS: AMPHETAMINE, URINE NEG (NEG); BARBITURATES, URINE NEG (NEG); COCAINE, URINE NEG (NEG)
[2017-03-26 19:00] VITALS: BP 121/74; PULSE 74; RESP 18; TEMP 97.8; O2SAT 96
[2017-03-26] MEDS: REMOVE OLD PATCH T-DERMAL SCH (21:00)
[2017-03-26] MEDS ORDERED: METOPROLOL TARTRATE 25 MG TAB PO SCH (21:00)
[2017-03-26] MEDS: TEMAZEPAM 15 MG CAP PO PRN (21:24)
[2017-03-26] MEDS: ISOSORBIDE MONONITRATE 60 MG TAB PO SCH (21:24)
[2017-03-26] MEDS: levETIRAcetam 500 MG TAB PO SCH (21:24)
[2017-03-26] MEDS: ALPRAZolam 1 MG TAB PO SCH (21:24)
[2017-03-26] MEDS: SODIUM CHLORIDE 0.9% FLUSH 10 ML FLUSH IV FLUSH SCH (21:25)
[2017-03-26] MEDS: FLUTICASONE PROPIONATE 50 MCG/ACT 16 GM NASAL SPRAY NASAL SCH (21:25)
[2017-03-27] VITALS (12 sets, daily range): BP systolic 108–150; BP diastolic 60–74; PULSE 80–94; RESP 18–22; TEMP 96.9–98.8; O2SAT 94–99
[2017-03-27] MEDS: HEPARIN SODIUM - SQ 10,000 UNITS/ML VIAL SQ SCH ×2 (04:36→14:06)
[2017-03-27 05:37] LABS: AUTOMATED NEUTROPHIL # 11.5 TH/MM3 (1.8-7.7); BASOPHIL % 0.1 % (0.0-2.0); EOSINOPHIL % 0.1 % (0.0-4.0); HEMATOCRIT 39.2 % (39.0-51.0); HEMO FLAGS DIFF FINAL; LYMPH % 8.9 % (9.0-44.0); LYMPHOCYTE # 1.2 TH/MM3 (1.0-4.8); MEAN CELL VOLUME 82.3 FL (80.0-100.0); MEAN CORPUSCULAR HEMOGLOBIN 26.7 PG (27.0-34.0); MEAN CORPUSCULAR HGB CONC 32.5 % (32.0-36.0); NEUT % 84.9 % (16.0-70.0); PLATELET COUNT 249 TH/MM3 (150-450); RED BLOOD COUNT 4.77 MIL/MM3 (4.50-5.90); RED CELL DISTRIBUTION WIDTH 16.6 % (11.6-17.2); WHITE BLOOD COUNT 13.6 TH/MM3 (4.0-11.0)
[2017-03-27] MEDS: ISOSORBIDE MONONITRATE 60 MG TAB PO SCH ×2 (05:44→20:59)
[2017-03-27 06:09] LABS: ALKALINE PHOSPHATASE 74 U/L (45-117); ALT (GPT) 27 U/L (12-78); ANION GAP 9 MEQ/L (5-15); AST (GOT) 11 U/L (15-37); BICARBONATE 28.4 MEQ/L (21.0-32.0); BLOOD UREA NITROGEN 34 MG/DL (7-18); CHLORIDE 102 MEQ/L (98-107); GLOMERULAR FILTRATION RATE 60 ML/MIN (>89); POTASSIUM 4.2 MEQ/L (3.5-5.1); SODIUM (NA) 139 MEQ/L (136-145); TOTAL BILIRUBIN ADULT 0.3 MG/DL (0.2-1.0)
--- NOTE | 2017-03-27 07:51 | PD.PN.STU ---
Subjective Remarks Patient seen and examined this morning. BP ranges from 179/77-99/60. Patient thinks syncope is related to BP meds and not the pain medication or Xanax. Reports aches and pains from falls, blurry vision, shaking, baseline chest pain and shortness of breath. States he wants to walk around until he has another fall. Thinks he passed out in bed but isn't sure. Reports only a couple of hours of sleep. Declines loop recorder offered by cardiology. Objective Vitals Vital Signs Date Time Temp Pulse Resp B/P Pulse Ox O2 Delivery O2 Flow Rate FiO2 03/27/17 07:15 96.9 90 20 112/64 96 03/27/17 04:00 97.5 85 22 150/70 99 03/27/17 00:34 80 03/27/17 00:00 97.2 84 20 108/62 94 03/26/17 19:00 97.8 74 18 121/74 96 03/26/17 18:48 18 03/26/17 15:41 97.6 68 18 99/60 96 03/26/17 10:44 70 16 156/74 98 Room Air 03/26/17 07:54 97 Room Air I/O 03/26/17 03/26/17 03/26/17 03/27/17 03/27/17 03/27/17 07:00 15:00 23:00 07:00 15:00 23:00 Intake Total 360 ml Balance 360 ml Intake Oral 360 ml # Voids 3 # Bowel Movements 2 Result Diagram: 03/27/17 0433 03/27/17 0433 Imaging Last Impressions Elbow X-Ray 03/26/17 0948 Signed Impressions: Service Date/Time: Sunday, March 26, 2017 10:22 - CONCLUSION: 1. There is no evidence of acute fracture. Jeremias Byers MD Head CT 03/26/17728 Signed Impressions: Service Date/Time: Sunday, March 26, 2017 08:05 - CONCLUSION: Questionable minimal subarachnoid hemorrhage on the left. No midline shift or mass effect. Darren Mueller MD Cervical Spine CT 03/26/17728 Signed Impressions: Service Date/Time: Sunday, March 26, 2017 08:05 - CONCLUSION: No fracture or subluxation. Darren Mueller MD Objective Remarks GENERAL: This is a well-nourished, well-developed patient, in no apparent distress. SKIN: No rashes, multiple bruises on right medial forearm. Cool and dry. HEAD: bruising on right forehead EYES: Pupils equal round and reactive. Extraocular motions intact. No scleral icterus. No injection or drainage. ENT: Nose without bleeding, purulent drainage or septal hematoma. Throat without erythema, tonsillar hypertrophy or exudate. Uvula midline. Airway patent. NECK: Trachea midline. No JVD or lymphadenopathy. Supple, nontender, no meningeal signs. CARDIOVASCULAR: Regular rate and rhythm without murmurs, gallops, or rubs. RESPIRATORY: Clear to auscultation. Breath sounds equal bilaterally. No wheezes , rales, or rhonchi. GASTROINTESTINAL: Abdomen soft, non-tender, nondistended. No hepato-splenomegaly , or palpable masses. No guarding. MUSCULOSKELETAL: Extremities without clubbing, cyanosis, or edema. erythema of left elbow. No calf tenderness. Negative Homans sign bilaterally. NEUROLOGICAL: Awake and alert. Cranial nerves II through XII intact. Motor and sensory grossly within normal limits. Five out of 5 muscle strength in all muscle groups. Normal speech. Medications and IVs Current Medications Medications (Trade) Dose Ordered Sig/Libby Route Start Time Stop Time Status Last Admin (NS Flush) 2 ml UNSCH PRN IV FLUSH 03/26/17 12:45 (NS Flush) 2 ml BID IV FLUSH 03/26/17 21:00 03/26/17 21:25 (Zofran Inj) 4 mg Q6H PRN IVP 03/26/17 12:45 (Milk Of Magnesia Liq) 30 ml Q12H PRN PO 03/26/17 12:45 (Restoril) 15 mg HS PRN PO 03/26/17 12:45 03/26/17 21:24 (Heparin Inj) 5,000 units Q12H SQ 03/26/17 14:00 03/27/17 04:36 (Habitrol 14 Mg Patch.24 Hr) 1 patch DAILY T-DERMAL 03/26/17 14:00 03/26/17 14:00 Miscellaneous Information 1 HS T-DERMAL 03/26/17 21:00 03/26/17 21:00 (Ventolin Hfa Inh) 2 puff Q4HR PRN INH 03/26/17 13:45 (Xanax) 1 mg BID PO 03/26/17 21:00 03/26/17 21:24 (Aspirin Chew) 81 mg DAILY CHEW 03/27/17 09:00 (Lipitor) 80 mg DAILY PO 03/27/17 09:00 (Flonase Philippe Spr) 1 spray BID NASAL 03/26/17 21:00 03/26/17 21:25 (Imdur) 60 mg BID@07, PO 03/26/17 21:00 03/27/17 05:44 (Protonix) 40 mg DAILY PO 03/27/17 09:00 (Effient) 10 mg DAILY PO 03/27/17 09:00 (Roxicodone) 30 mg Q6H PRN PO 03/26/17 13:45 03/27/17 05:44 (Keppra) 500 mg Q12HR PO 03/26/17 21:00 03/26/17 21:24 A/P Assessment and Plan 61 year old man with history of [place] 11/13/16 with history of syncope, possibility of cardiogenic origin given history. Syncope: Cardiology consulted- recommended stop Lasix, metoprolol, gabapentin, loop recorder (declined by patient) Alcohol/ Drug screen- positive for benzos TSH 0.293 Free T4 0.83 Troponins x3 less than 0.02 Pt consult EEG Telemetry DVT PPX :Heparin 5000 units SQ Q12H SCD Bilateral Heart Healthy diet Patient seen and examined. Case reviewed and discussed with the resident team. Agree with plan of care as discussed with me and documented in the resident note. Larissa Hunt March 27, 2017 07:51 Gina Wu MD April 01, 2017 09:40
[2017-03-27] MEDS: FLUTICASONE PROPIONATE 50 MCG/ACT 16 GM NASAL SPRAY NASAL SCH ×2 (08:22→21:01)
[2017-03-27] MEDS: SODIUM CHLORIDE 0.9% FLUSH 10 ML FLUSH IV FLUSH SCH ×2 (08:22→21:00)
[2017-03-27] MEDS: levETIRAcetam 500 MG TAB PO SCH ×2 (08:24→21:00)
[2017-03-27] MEDS: ATORVASTATIN 80 MG TAB PO SCH (08:24)
[2017-03-27] MEDS: PRASUGREL 10 MG TAB PO SCH (08:24)
[2017-03-27] MEDS: NICOTINE 14 MG/24 HR PATCH T-DERMAL SCH (08:24)
[2017-03-27] MEDS: ALPRAZolam 1 MG TAB PO SCH ×2 (08:25→21:00)
[2017-03-27] MEDS: ASPIRIN 81 MG CHEW TAB CHEW SCH (08:25)
[2017-03-27] MEDS: PANTOPRAZOLE SOD 40 MG DELAYED RELEASE TAB PO SCH (08:25)
[2017-03-27] MEDS ORDERED: REMOVE OLD PATCH T-DERMAL SCH (09:00)
[2017-03-27] MEDS ORDERED: FUROSEMIDE 20 MG TAB PO SCH (09:00)
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
--- NOTE | 2017-03-27 12:37 | RADRPT ---
EXAM DATE/TIME: 03/27/2017 10:25 [facility] COMPARISON: No previous studies available for comparison. INDICATIONS : Abdomen pain. MEDICAL HISTORY : Myocardial infarction. Hypercholesterolemia. Chronic obstructive pulmonary disease. GERD. Syncope. CA D. Hypertension. Hiatal hernia. Kidney stones. SURGICAL HISTORY : CABG. Coronary artery stent. Cardiac cath. ENCOUNTER: Initial ACUITY: 1 day PAIN SCORE: 3/10 LOCATION: Midline abdomen. MEASUREMENTS: (AP x TRANSVERSE) PROXIMAL: 2.3 x 2.4 cm MID: 2.3 x 2.2 cm DISTAL: 2.8 x 2.2 cm RIGHT ILIAC: Not visualized. cm LEFT ILIAC: Not visualized. cm FINDINGS: AORTA: No significant atherosclerotic disease. Doppler evaluation within normal limits. IVC: Within normal limits. CONCLUSION: 1. No evidence of aneurysm Jeremias Byers MD on March 27, 2017 at 12:35 Board Certified Radiologist. This report was verified electronically.
[2017-03-27] MEDS: ONDANSETRON HCL 4 MG/2 ML VIAL IVP PRN (17:43)
[2017-03-27] MEDS: HYDROCORTISONE 1% OINT 30 GM TUBE TOPICAL PRN (18:44)
[2017-03-27] MEDS: REMOVE OLD PATCH T-DERMAL SCH (21:00)
[2017-03-28] VITALS (8 sets, daily range): BP systolic 91–142; BP diastolic 52–78; PULSE 77–96; RESP 18–22; TEMP 97.6–98.2; O2SAT 93–98
[2017-03-28] MEDS: TEMAZEPAM 15 MG CAP PO PRN ×2 (00:26→22:07)
[2017-03-28] MEDS: HEPARIN SODIUM - SQ 10,000 UNITS/ML VIAL SQ SCH ×2 (00:26→12:34)
--- NOTE | 2017-03-28 05:10 | MG ---
cc: JIMMIE HAMMOND MD Lab No: [id number] Date: 03/26/2017 Age: 61 Sex: M Race: EEG NUMBER [id number] DATE OF 1955 INDICATIONS A 61-year-old with history of syncope, shaking, chest pain, headache. FINDINGS 7-9 Hz activity, 10-30 microvolts. Fast frequency myogenic artifact in the frontal channels. Attenuation with slowing of background with transition into drowsy state followed by stage I sleep. Limited driving with photic stimulation. Single lead EKG showing sinus rhythm. INTERPRETATION Normal awake and sleep EEG. Clinical correlation. Jimmie Hammond MD MG/SSB /10:09 PM /5:02 AM
[2017-03-28 05:46] LABS: AUTOMATED NEUTROPHIL # 7.4 TH/MM3 (1.8-7.7); BASOPHIL % 0.1 % (0.0-2.0); EOSINOPHIL # 0.2 TH/MM3 (0-0.4); EOSINOPHIL % 1.9 % (0.0-4.0); HEMATOCRIT 33.9 % (39.0-51.0); HEMO FLAGS AUTO DIFF; LYMPH % 27.5 % (9.0-44.0); LYMPHOCYTE # 3.2 TH/MM3 (1.0-4.8); MEAN CELL VOLUME 83.2 FL (80.0-100.0); MEAN CORPUSCULAR HEMOGLOBIN 26.8 PG (27.0-34.0); MEAN CORPUSCULAR HGB CONC 32.2 % (32.0-36.0); MONO % 6.3 % (0.0-8.0); NEUT % 64.2 % (16.0-70.0); PLATELET COUNT 199 TH/MM3 (150-450); RED BLOOD COUNT 4.07 MIL/MM3 (4.50-5.90); RED CELL DISTRIBUTION WIDTH 16.2 % (11.6-17.2); WHITE BLOOD COUNT 11.5 TH/MM3 (4.0-11.0)
[2017-03-28 06:11] LABS: BICARBONATE 30.7 MEQ/L (21.0-32.0); POTASSIUM 4.1 MEQ/L (3.5-5.1)
[2017-03-28] MEDS: ISOSORBIDE MONONITRATE 60 MG TAB PO SCH ×2 (06:31→22:02)
[2017-03-28] MEDS: diphenhydrAMINE HCL 25 MG CAP PO PRN ×2 (06:47→18:00)
[2017-03-28 06:51] LABS: EOSINOPHILS 1 % (0-4); MYELOCYTES 1 % (0-0); NEUTROPHIL # MANUAL DIFF 6.7 TH/MM3 (1.8-7.7); PLATELET ESTIMATE SMEAR NORMAL (NORMAL); PLATELET MORPHOLOGY NORMAL (NORMAL); POLYS (SEG NEUTROPHILS) 57 % (16-70); SCAN/DIFF FINAL DIFF MANUAL; WBC DIFF SAMPLE 100
[2017-03-28] MEDS: ASPIRIN 81 MG CHEW TAB CHEW SCH (08:39)
[2017-03-28] MEDS: PANTOPRAZOLE SOD 40 MG DELAYED RELEASE TAB PO SCH (08:39)
[2017-03-28] MEDS: SODIUM CHLORIDE 0.9% FLUSH 10 ML FLUSH IV FLUSH SCH ×2 (08:39→22:03)
[2017-03-28] MEDS: PRASUGREL 10 MG TAB PO SCH (08:39)
[2017-03-28] MEDS: ATORVASTATIN 80 MG TAB PO SCH (08:39)
[2017-03-28] MEDS: levETIRAcetam 500 MG TAB PO SCH ×2 (08:39→22:02)
[2017-03-28] MEDS: ALPRAZolam 1 MG TAB PO SCH ×2 (08:39→22:02)
[2017-03-28] MEDS: NICOTINE 14 MG/24 HR PATCH T-DERMAL SCH (08:40)
[2017-03-28] MEDS: HYDROCORTISONE 1% OINT 30 GM TUBE TOPICAL PRN (08:45)
[2017-03-28] MEDS: FLUTICASONE PROPIONATE 50 MCG/ACT 16 GM NASAL SPRAY NASAL SCH ×2 (08:45→22:03)
--- NOTE | 2017-03-28 09:28 | PD.PN.STU ---
Subjective Remarks Patient seen and examined this morning. No episodes of syncope overnight. Reports new rash on forearms and buttocks that is itchy. Hydrocortisone cream is helping. Denies any suicidal ideation. Has many questions about going to . Objective Vitals Vital Signs Date Time Temp Pulse Resp B/P Pulse Ox O2 Delivery O2 Flow Rate FiO2 03/28/17 07:20 97.6 87 20 120/61 93 03/28/17 04:12 98.0 77 20 91/52 95 03/28/17 01:49 16 03/28/17 00:34 97.6 84 22 142/65 98 03/27/17 22:43 81 03/27/17 21:05 98.0 85 18 142/74 97 03/27/17 19:23 98.8 93 22 114/69 96 111/73 03/27/17 18:13 81 03/27/17 16:00 98.4 93 18 113/71 96 03/27/17 12:03 97.8 94 19 128/60 97 03/27/17 09:42 90 20 112/69 98 114/66 112/66 Result Diagram: 03/28/17 0459 03/28/17 0459 Imaging Last Impressions Aorta Ultrasound 03/27/17 0000 Signed Impressions: Service Date/Time: Monday, March 27, 2017 10:25 - CONCLUSION: 1. No evidence of aneurysm Jeremias Byers MD Elbow X-Ray 03/26/17 0948 Signed Impressions: Service Date/Time: Sunday, March 26, 2017 10:22 - CONCLUSION: 1. There is no evidence of acute fracture. Jeremias Byers MD Head CT 03/26/17 0729 Signed Impressions: Service Date/Time: Sunday, March 26, 2017 08:05 - CONCLUSION: Questionable minimal subarachnoid hemorrhage on the left. No midline shift or mass effect. Darren Mueller MD Cervical Spine CT 03/26/17728 Signed Impressions: Service Date/Time: Sunday, March 26, 2017 08:05 - CONCLUSION: No fracture or subluxation. Darren Mueller MD Objective Remarks GENERAL: This is a well-nourished, well-developed patient, in no apparent distress. SKIN: No rashes, multiple bruises on right medial forearm, petechial rash on lateral forearms. Cool and dry. HEAD: bruising on right forehead EYES: Pupils equal round and reactive. Extraocular motions intact. No scleral icterus. No injection or drainage. ENT: Nose without bleeding, purulent drainage or septal hematoma. Throat without erythema, tonsillar hypertrophy or exudate. Uvula midline. Airway patent. NECK: Trachea midline. No JVD or lymphadenopathy. Supple, nontender, no meningeal signs. CARDIOVASCULAR: Regular rate and rhythm without murmurs, gallops, or rubs. RESPIRATORY: Clear to auscultation. Breath sounds equal bilaterally. No wheezes , rales, or rhonchi. GASTROINTESTINAL: Abdomen soft, non-tender, nondistended. No hepato-splenomegaly , or palpable masses. No guarding. MUSCULOSKELETAL: Extremities without clubbing, cyanosis, or edema. erythema of left elbow. No calf tenderness. NEUROLOGICAL: Awake and alert. Motor and sensory grossly within normal limits. Normal speech. Medications and IVs Current Medications Medications (Trade) Dose Ordered Sig/Libby Route Start Time Stop Time Status Last Admin (NS Flush) 2 ml UNSCH PRN IV FLUSH 03/26/17 12:45 (NS Flush) 2 ml BID IV FLUSH 03/26/17 21:00 03/28/17 08:39 (Zofran Inj) 4 mg Q6H PRN IVP 03/26/17 12:45 03/27/17 17:43 (Milk Of Magnesia Liq) 30 ml Q12H PRN PO 03/26/17 12:45 03/27/17 14:15 (Restoril) 15 mg HS PRN PO 03/26/17 12:45 03/28/17 00:26 (Heparin Inj) 5,000 units Q12H SQ 03/26/17 14:00 03/28/17 00:26 (Habitrol 14 Mg Patch.24 Hr) 1 patch DAILY T-DERMAL 03/26/17 14:00 03/28/17 08:40 Miscellaneous Information 1 HS T-DERMAL 03/26/17 21:00 03/27/17 21:00 (Ventolin Hfa Inh) 2 puff Q4HR PRN INH 03/26/17 13:45 (Xanax) 1 mg BID PO 03/26/17 21:00 03/28/17 08:39 (Aspirin Chew) 81 mg DAILY CHEW 03/27/17 09:00 03/28/17 08:39 (Lipitor) 80 mg DAILY PO 03/27/17 09:00 03/28/17 08:39 (Flonase Philippe Spr) 1 spray BID NASAL 03/26/17 21:00 03/28/17 08:45 (Imdur) 60 mg BID@07,21 PO 03/26/17 21:00 03/28/17 06:31 (Protonix) 40 mg DAILY PO 03/27/17 09:00 03/28/17 08:39 (Effient) 10 mg DAILY PO 03/27/17 09:00 03/28/17 08:39 (Roxicodone) 30 mg Q6H PRN PO 03/26/17 13:45 03/28/17 06:31 (Keppra) 500 mg Q12HR PO 03/26/17 21:00 03/28/17 08:39 (Nutracort 1% Oint) 1 applic QID PRN TOPICAL 03/27/17 18:00 03/28/17 08:45 (Benadryl) 25 mg Q6H PRN PO 03/28/17 06:30 03/28/17 06:47 A/P Assessment and Plan 61 year old man with history of [place] 11/13/16 with history of syncope, possibility of cardiogenic origin given history. Syncope: Cardiology consulted- recommended stop Lasix, metoprolol, gabapentin, loop recorder (initially declined by patient) -Update 03/27: Patient wants loop recorder if going to SNF Alcohol/ Drug screen- positive for benzos TSH 0.293 Free T4 0.83 Troponins x3 less than 0.02 Pt consulted- fully independent EEG - normal awake and sleep EEG Telemetry DVT PPX :Heparin 5000 units SQ Q12H SCD Bilateral Heart Healthy diet Consult Case management to arrange SNF for discharge Discharge Planning Waiting for to process insurance information Patient seen and examined. Case reviewed and discussed with the resident team. Agree with plan of care as discussed with me and documented in the resident note. Larissa Hunt March 28, 2017 09:27 Gina Wu MD April 01, 2017 09:41
--- NOTE | 2017-03-28 10:01 | HHI.FPPN ---
Subjective Remarks Patient is doing well this morning. He has questions regarding custodial facility options. Patient states he may have had a episode of blacking out 1 hour ago but on further thought he states he likely did not. Denies chest pain , nausea, vomiting. No fever, chills. No suicidal thought or plan. (Richmond Whalen MD R2) Objective Vitals Vital Signs Date Time Temp Pulse Resp B/P Pulse Ox O2 Delivery O2 Flow Rate FiO2 03/28/17 09:39 78 03/28/17 07:20 97.6 87 20 120/61 93 03/28/17 04:12 98.0 77 20 91/52 95 03/28/17 01:49 16 03/28/17 00:34 97.6 84 22 142/65 98 03/27/17 22:43 81 03/27/17 21:05 98.0 85 18 142/74 97 03/27/17 19:23 98.8 93 22 114/69 96 111/73 03/27/17 18:13 81 03/27/17 16:00 98.4 93 18 113/71 96 03/27/17 12:03 97.8 94 19 128/60 97 (Richmond Whalen MD R2) Result Diagram: 03/28/17 0459 03/28/17 0459 Objective Remarks GENERAL: This is a well-nourished, well-developed patient, in no apparent distress walking in room and eating well. SKIN: No rashes, multiple bruises on right medial forearm. Cool and dry. HEAD: bruising on right forehead with small hematoma EYES: Pupils equal round and reactive. Extraocular motions intact. No scleral icterus. No injection or drainage. ENT: Nose without bleeding, purulent drainage or septal hematoma. Airway patent. NECK: Trachea midline. No JVD or lymphadenopathy. Supple, nontender, no meningeal signs. CARDIOVASCULAR: Regular rate and rhythm without murmurs, gallops, or rubs. RESPIRATORY: Clear to auscultation. Breath sounds equal bilaterally. No wheezes , rales, or rhonchi. GASTROINTESTINAL: Abdomen soft, non-tender, nondistended. No hepato-splenomegaly , or palpable masses. No guarding. MUSCULOSKELETAL: Extremities without clubbing, cyanosis, or edema. No joint tenderness, effusion, or edema noted. No calf tenderness. Negative Homans sign bilaterally. NEUROLOGICAL: Awake and alert. Cranial nerves II through XII intact. Motor and sensory grossly within normal limits. Five out of 5 muscle strength in all muscle groups. Normal speech. (Richmond Whalen MD R2) A/P Assessment and Plan 61 year old man with history of [place] 11/13/16 with history of syncope, possibility of cardiogenic origin given history. Plan as below. He agrees to retirement placement. He knows he needs help and for now is willing to go to a SNF. He is volatile and may easily change his mind. Discharge Planning Case management helping with discharge to custodial facility. [id number] signed. (Richmond Whalen MD R2) Attending Attestation Patient seen and examined. Case reviewed and discussed with the resident team. Agree with plan of care as discussed with me and documented in the resident note. (Gina Wu MD) Problem List: (1) Syncope and collapse Status: Acute Plan: History of IL, concerned for cardiac source for syncope. Extensive work up in the past. Cardiology consult: Okay to discharge if no events on telemetry. Patient refuses loop recorder, however he may agree to a loop recorder if going to a custodial facility. Pt consult done. he can ambulate Alcohol/ Drug screen done. he admits to occasional cocaine use EEG: Normal awake EEG. Telemetry: No events observed thus far TSH, Free T4: Within normal limits Troponins x2: Within normal limits (2) FEN/PPX Status: Acute Plan: DVT PPX Heparin 5000 units SQ Q12H SCD Bilateral Heart Healthy diet Chronic Medical Problems: Prior IL: continue aspirin 81mg daily, nitroglycerin 0.3mg sublingual PRN, isosorbide mononitrate 60mg twice daily Coronary artery disease status post CABG & stent placement: Effient 10mg tab daily Chronic pain: Oxycodone 30mg Q6H as needed Hyperlipidemia: atorvastatin 80mg daily Hypertension: metoprolol 25mg twice daily COPD: Albuterol inhaler 2 puffs Q4-6H as needed CHF: furosemide 20mg daily Neuropathy: Gabapentin 600mg three times a day Anxiety: Alprazolam 1mg twice daily History of seizure disorder: levetiracetam 500mg twice daily Gastritis: Protonix 40mg daily Seasonal Allergies: Fluticasone nasal spray 50 Mcg/Act 1 [place] each nostril twice daily Tobacco Use: Nicotine 14mg patch daily (3) Adjustment disorder with mixed anxiety and depressed mood Status: Chronic Plan: He has a history of depression and one reported suicide attempt in past. 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 He also states he just went to [place] and was performing there recently. It is unclear if he could be delusional. appreciate help of Dr Norris with any suggestions (Richmond Whalen MD R2) Richmond Whalen MD R2 March 28, 2017 10:01 Gina Wu MD April 01, 2017 09:41
--- NOTE | 2017-03-28 11:56 | HHI.DCPOC ---
Discharge Care Plan Diagnosis: (1) Syncope and collapse (2) Adjustment disorder with mixed anxiety and depressed mood Goals to Promote Your Health * To prevent worsening of your condition and complications * To maintain your health at the optimal level Directions to Meet Your Goals Take your medications as prescribed Follow your dietary instruction Follow activity as directed Keep your appointments as scheduled Take your immunizations and boosters as scheduled If your symptoms worsen call your PCP, if no PCP go to Urgent Care Center or Emergency Room Smoking is Dangerous to Your Health. Avoid second hand smoke Call the 24-hour hour crisis hotline for domestic abuse at Richmond Whalen MD R2 March 28, 2017 11:56
--- NOTE | 2017-03-28 15:47 | PD.CONS ---
Provisional Diagnosis Admission Date March 26, 2017 at 11:17 [place] I. Adjustment disorder with depressed mood, rule out malingering [place] II. 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 Patient reports "blacking out" 3 times in the last 2 days. He blacked out and fell down stairs (admission 09/29/16), blacking out with falls have been happening ever since, becoming more frequent. This episode: fell at bus stop, "fell like a tree", hit his head on concrete, was out for a few minutes and came to when still on the ground. Reports various aches, pains and bruising from falling repeatedly. He has had double vision since his original fall. Patient reports falls feels as if "light switch goes off", doesn't know when they are going to happen, no dizziness or lightheadedness before falling. He reports his extremities shaking for hours, unrelated to the falls. Patient recently reportedly went to [place] 2 1/2 weeks ago, for 6 days and had no episodes of blacking out. He goes to [place] once a month to get his prescriptions of Xanax 1mg twice a day and Roxicodone 30mg q6h. Patient reports thoughts about hurting himself after being told to leave the ER. He has had prior thoughts but no prior attempts of self harm recently with one suicide attempt in distant past reported in his record. Once patient was cleared medically, patient reports a suicidal intentions. He was consulted to psychiatry. On psychiatric evaluation patient was oppositional, irritable and furious. As stated that he is not here to see a psychiatrist. Patient claimed that he doesn 't want to speak with psychiatry. With redirection, he finally agreed to talk, but he was reticent and guarded. He says that the reason he stated yesterday that he was suicidal "was because they wanted to discharge into the street", but now he denies depression, he denies anxiety, he denies perceptual disturbances, he denies suicidal and homicidal ideation, he denies visual and auditory hallucinations. He says that he is not suicidal anymore "because now with we had an agreement". Review of Systems Constitutional: DENIES: Diaphoretic episodes, Fatigue, Fever, Weight gain, Weight loss, Chills, Dizziness, Change in appetite, Night Sweats Endocrine: DENIES: Heat/cold intolerance, Polydipsia, Polyuria, Polyphagia Eyes: DENIES: Blurred vision, Diplopia, Eye inflammation, Eye pain, Vision loss , Photosensitivity, Double Vision Ears, nose, mouth, throat: DENIES: Tinnitus, Hearing loss, Vertigo, Nasal discharge, Oral lesions, Throat pain, Hoarseness, Ear Pain, Running Nose, Epistaxis, Sinus Pain, Toothache, Odynophagia Cardiovascular: DENIES: Chest pain, Palpitations, Syncope, Dyspnea on Exertion , PND, Lower Extremity Edema, Orthopnea, Claudication Gastrointestinal: DENIES: Abdominal pain, Black stools, Bloody stools, Constipation, Diarrhea, Nausea, Vomiting, Difficulty Swallowing, Anorexia Genitourinary: DENIES: Sexual dysfunction, Urinary frequency, Urinary incontinence, Urgency, Hematuria, Dysuria, Nocturia, Penile Discharge, Testicular Pain, Testicular Swelling Musculoskeletal: DENIES: Joint pain, Muscle aches, Stiffness, Joint Swelling, Back pain, Neck pain Integumentary: DENIES: Abnormal pigmentation, Nail changes, Pruritus, Rash Hematologic/lymphatic: DENIES: Bruising, Lymphadenopathy Immunologic/allergic: DENIES: Eczema, Urticaria Neurologic: DENIES: Abnormal gait, Headache, Localized weakness, Paresthesias, Seizures, Speech Problems, Tremor, Poor Balance Past Family Social History Coded Allergies: Toradol (Verified Allergy, Severe, RASH, 03/26/17) Penicillin (Verified Allergy, Unknown, Anaphylaxis, 03/26/17) Active Scripts Pantoprazole (Protonix)40 Mg Tab40 Mg PO DAILY #14 TAB Ref 0 Prov:Sandrine Tello MD 03/14/17 Isosorbide Mononitrate ER 60 Mg Tab60 Mg PO BID 30 Days Ref 0 Prov:Sandrine Tello MD 03/14/17 Gabapentin 600 Mg Anh927 Mg PO TID #90 TAB Ref 0 Prov:Jake Kenyon MD 02/05/17 Furosemide 20 Mg Tab20 Mg PO DAILY #30 TAB Prov:Jake Kenyon MD 02/05/17 Prasugrel (Effient)10 Mg Tab10 Mg PO DAILY #30 TAB Prov:Jake Kenyon MD 02/05/17 Atorvastatin (Lipitor)80 Mg Tab80 Mg PO DAILY #30 TAB Prov:Jake Kenyon MD 02/05/17 Aspirin 81 Mg Chew81 Mg CHEW DAILY #30 TAB Ref 0 Prov:Jake Kenyon MD 02/05/17 Fluticasone Nasal [place] 50 Mcg/Act Naspr1 [place] NASAL BID #1 BOTTLE Prov:Sofie Chisholm MD 12/11/16 Albuterol 18 GM Inh (Ventolin Hfa 18 GM Inh)90 Mcg/Act Aer2 Puff INH Q4-6H PRN ( SOB/WHEEZING) #1 INHALER Prov:Bev Milligan 10/12/16 Nitroglycerin SL 0.3 Mg Subl0.3 Mg SL DIRECTED PRN (CHEST PAIN) #10 TAB.SL Ref 0 ONE TABLET UNDER THE TONGUE NEEDED FOR CHEST PAIN, MAY REPEAT EVERY FIVE MINUTES FOR A TOTAL OF 3 DOSES OR CALL 911 IF NO RELIEF. Prov:Bev Milligan 10/12/16 Reported Medications Oxycodone 30 Mg Tab30 Mg PO Q6H PRN (PAIN) Ref 0 02/14/17 Alprazolam 1 Mg Tab1 Mg PO BID Ref 0 12/19/16 Current Medications Medications (Trade) Dose Ordered Sig/Libby Route Start Time Stop Time Status Last Admin (NS Flush) 2 ml UNSCH PRN IV FLUSH 03/26/17 12:45 (NS Flush) 2 ml BID IV FLUSH 03/26/17 21:00 03/28/17 08:39 (Zofran Inj) 4 mg Q6H PRN IVP 03/26/17 12:45 03/27/17 17:43 (Milk Of Magnesia Liq) 30 ml Q12H PRN PO 03/26/17 12:45 03/27/17 14:15 (Restoril) 15 mg HS PRN PO 03/26/17 12:45 03/28/17 00:26 (Heparin Inj) 5,000 units Q12H SQ 03/26/17 14:00 03/28/17 12:34 (Habitrol 14 Mg Patch.24 Hr) 1 patch DAILY T-DERMAL 03/26/17 14:00 03/28/17 08:40 Miscellaneous Information 1 HS T-DERMAL 03/26/17 21:00 03/27/17 21:00 (Ventolin Hfa Inh) 2 puff Q4HR PRN INH 03/26/17 13:45 (Xanax) 1 mg BID PO 03/26/17 21:00 03/28/17 08:39 (Aspirin Chew) 81 mg DAILY CHEW 03/27/17 09:00 03/28/17 08:39 (Lipitor) 80 mg DAILY PO 03/27/17 09:00 03/28/17 08:39 (Flonase Philippe Spr) 1 spray BID NASAL 03/26/17 21:00 03/28/17 08:45 (Imdur) 60 mg BID@07,21 PO 03/26/17 21:00 03/28/17 06:31 (Protonix) 40 mg DAILY PO 03/27/17 09:00 03/28/17 08:39 (Effient) 10 mg DAILY PO 03/27/17 09:00 03/28/17 08:39 (Roxicodone) 30 mg Q6H PRN PO 03/26/17 13:45 03/28/17 12:33 (Keppra) 500 mg Q12HR PO 03/26/17 21:00 03/28/17 08:39 (Nutracort 1% Oint) 1 applic QID PRN TOPICAL 03/27/17 18:00 03/28/17 08:45 (Benadryl) 25 mg Q6H PRN PO 03/28/17 06:30 03/28/17 06:47 Physical Exam Vital Signs Vital Signs Date Time Temp Pulse Resp B/P Pulse Ox O2 Delivery O2 Flow Rate FiO2 03/28/17 11:41 85 116/62 113/60 03/28/17 11:36 97.7 18 97 03/26/17 10:44 Room Air Mental Status Examination Appearance man, multiple tattoos, [facility], fair hygiene, irritable, guarded and minimally cooperative Speech: Hesitant, Slow Orientation: x3 Memory: Unremarkable Thought Process: Logical Thought Content: Unremarkable Hallucination Type: None Suicidal Ideation: No Previous Suicide Attempts: Yes Homicidal Ideation: No Previous Homicide Attempts: No Judgment: WNL Affect: Irritable Mood: Irritable Motor Activity: Normal gait Assessment & Plan Problem List: (1) Adjustment disorder with mixed anxiety and depressed mood Assessment & Plan: At the moment of this evaluation the patient does not present any evidence of depression, anxiety, psychosis. Patient denies suicidal or homicidal ideation, he denies visual and auditory hallucinations. Recent suicidal statement was most probably just a way to manipulate and to use the system in his own personal benefits. Patient does not meet criteria for psychiatric admission. He now denies suicidal and homicidal ideation, he denies visual and auditory hallucinations. Patient actually admits that he endorsed SI because he did not want to be discharged. There are several elements described in the conduct and character of this patient does suggest an underlying/undiagnosed personality pathology, most probably antisocial personality disorder. Education, motivation, support provided. No psychotropics indicated. ICD Code: F43.23 Assessment & Plan Estimated LOS: Jose Britton MD March 28, 2017 15:47
[2017-03-28] MEDS: ONDANSETRON HCL 4 MG/2 ML VIAL IVP PRN (18:00)
[2017-03-28] MEDS: REMOVE OLD PATCH T-DERMAL SCH (21:00)
[2017-03-29 00:17] VITALS: BP 102/55; PULSE 81; RESP 19; TEMP 98; O2SAT 91
[2017-03-29 00:50] VITALS: PULSE 77
[2017-03-29] MEDS: HEPARIN SODIUM - SQ 10,000 UNITS/ML VIAL SQ SCH ×2 (02:44→14:00)
[2017-03-29 03:32] VITALS: BP 120/70; PULSE 88; RESP 19; TEMP 98.1; O2SAT 96
[2017-03-29] MEDS: ISOSORBIDE MONONITRATE 60 MG TAB PO SCH (06:05)
--- NOTE | 2017-03-29 07:16 | PD.PN.STU ---
Subjective Remarks Patient seen and examined this morning. No new complaints. Rash is improving and less itchy. Denies suicidal ideation, fever, cough. Reports constipation. Waiting for placement to half-way facility. Objective Vitals Vital Signs Date Time Temp Pulse Resp B/P Pulse Ox O2 Delivery O2 Flow Rate FiO2 03/29/17 03:32 98.1 88 19 120/70 96 03/29/17 00:50 77 03/29/17 00:17 98.0 81 19 102/55 91 03/28/17 19:35 98.2 96 19 134/78 96 03/28/17 16:00 98.0 89 18 115/65 96 03/28/17 11:41 85 116/62 113/60 03/28/17 11:36 97.7 83 18 112/64 97 03/28/17 09:39 78 03/28/17 07:20 97.6 87 20 120/61 93 Result Diagram: 03/28/17 0459 03/28/17 0459 Objective Remarks GENERAL: This is a well-nourished, well-developed patient, in no apparent distress. SKIN: No rashes, multiple bruises on right medial forearm, petechial rash on lateral forearms. Cool and dry. HEAD: bruising on right forehead EYES: Pupils equal round and reactive. Extraocular motions intact. No scleral icterus. No injection or drainage. ENT: Nose without bleeding, purulent drainage or septal hematoma. Throat without erythema, tonsillar hypertrophy or exudate. Uvula midline. Airway patent. NECK: Trachea midline. No JVD or lymphadenopathy. Supple, nontender, no meningeal signs. CARDIOVASCULAR: Regular rate and rhythm without murmurs, gallops, or rubs. RESPIRATORY: Clear to auscultation. Breath sounds equal bilaterally. No wheezes , rales, or rhonchi. GASTROINTESTINAL: Abdomen soft, non-tender, nondistended. No hepato-splenomegaly , or palpable masses. No guarding. MUSCULOSKELETAL: Extremities without clubbing, cyanosis, or edema. erythema of left elbow. No calf tenderness. NEUROLOGICAL: Awake and alert. Motor and sensory grossly within normal limits. Normal speech. Medications and IVs Current Medications Medications (Trade) Dose Ordered Sig/Libby Route Start Time Stop Time Status Last Admin (NS Flush) 2 ml UNSCH PRN IV FLUSH 03/26/17 12:45 (NS Flush) 2 ml BID IV FLUSH 03/26/17 21:00 03/28/17 22:03 (Zofran Inj) 4 mg Q6H PRN IVP 03/26/17 12:45 03/28/17 18:00 (Milk Of Magnesia Liq) 30 ml Q12H PRN PO 03/26/17 12:45 03/27/17 14:15 (Restoril) 15 mg HS PRN PO 03/26/17 12:45 03/28/17 22:07 (Heparin Inj) 5,000 units Q12H SQ 03/26/17 14:00 03/29/17 02:44 (Habitrol 14 Mg Patch.24 Hr) 1 patch DAILY T-DERMAL 03/26/17 14:00 03/28/17 08:40 Miscellaneous Information 1 HS T-DERMAL 03/26/17 21:00 03/28/17 21:00 (Ventolin Hfa Inh) 2 puff Q4HR PRN INH 03/26/17 13:45 (Xanax) 1 mg BID PO 03/26/17 21:00 03/28/17 22:02 (Aspirin Chew) 81 mg DAILY CHEW 03/27/17 09:00 03/28/17 08:39 (Lipitor) 80 mg DAILY PO 03/27/17 09:00 03/28/17 08:39 (Flonase Philippe Spr) 1 spray BID NASAL 03/26/17 21:00 03/28/17 22:03 (Imdur) 60 mg BID@07,21 PO 03/26/17 21:00 03/29/17 06:05 (Protonix) 40 mg DAILY PO 03/27/17 09:00 03/28/17 08:39 (Effient) 10 mg DAILY PO 03/27/17 09:00 03/28/17 08:39 (Roxicodone) 30 mg Q6H PRN PO 03/26/17 13:45 03/29/17 06:06 (Keppra) 500 mg Q12HR PO 03/26/17 21:00 03/28/17 22:02 (Nutracort 1% Oint) 1 applic QID PRN TOPICAL 03/27/17 18:00 03/28/17 08:45 (Benadryl) 25 mg Q6H PRN PO 03/28/17 06:30 03/28/17 18:00 A/P Assessment and Plan 61 year old man with history of CT 11/13/16 with history of syncope, possibility of cardiogenic origin given history. Syncope: Cardiology consulted- recommended stop Lasix, metoprolol, gabapentin, loop recorder (initially declined by patient) -Update 03/27: Patient wants loop recorder if going to SNF Alcohol/ Drug screen- positive for benzos TSH 0.293 Free T4 0.83 Troponins x3 less than 0.02 Pt consulted- fully independent EEG - normal awake and sleep EEG Telemetry DVT PPX :Heparin 5000 units SQ Q12H SCD Bilateral Heart Healthy diet Consult Case management to arrange SNF for discharge Discharge Planning Ready for discharge to half-way facility Larissa Hunt M3 March 29, 2017 07:16
[2017-03-29 07:35] VITALS: BP 102/64; PULSE 86; RESP 18; TEMP 97.9; O2SAT 94
[2017-03-29 08:30] VITALS: PULSE 63; PULSE 88
--- NOTE | 2017-03-29 08:59 | HHI.FPPN ---
Objective Vitals Vital Signs Date Time Temp Pulse Resp B/P Pulse Ox O2 Delivery O2 Flow Rate FiO2 03/29/17 07:35 97.9 86 18 102/64 94 03/29/17 03:32 98.1 88 19 120/70 96 03/29/17 00:50 77 03/29/17 00:17 98.0 81 19 102/55 91 03/28/17 19:35 98.2 96 19 134/78 96 03/28/17 16:00 98.0 89 18 115/65 96 03/28/17 11:41 85 116/62 113/60 03/28/17 11:36 97.7 83 18 112/64 97 03/28/17 09:39 78 Result Diagram: 03/28/17 0459 03/28/17 0459 Objective Remarks GENERAL: This is a well-nourished, well-developed patient, in no apparent distress walking in room and eating well. SKIN: No rashes, multiple bruises on right medial forearm. Cool and dry. HEAD: bruising on right forehead with small hematoma EYES: Pupils equal round and reactive. Extraocular motions intact. No scleral icterus. No injection or drainage. ENT: Nose without bleeding, purulent drainage or septal hematoma. Airway patent. NECK: Trachea midline. No JVD or lymphadenopathy. Supple, nontender, no meningeal signs. CARDIOVASCULAR: Regular rate and rhythm without murmurs, gallops, or rubs. RESPIRATORY: Clear to auscultation. Breath sounds equal bilaterally. No wheezes , rales, or rhonchi. GASTROINTESTINAL: Abdomen soft, non-tender, nondistended. No hepato-splenomegaly , or palpable masses. No guarding. MUSCULOSKELETAL: Extremities without clubbing, cyanosis, or edema. No joint tenderness, effusion, or edema noted. No calf tenderness. Negative Homans sign bilaterally. NEUROLOGICAL: Awake and alert. Cranial nerves II through XII intact. Motor and sensory grossly within normal limits. Five out of 5 muscle strength in all muscle groups. Normal speech. A/P Assessment and Plan 61 year old man with history of [place] 11/13/16 with history of syncope, possibility of cardiogenic origin given history. Plan as below. He agrees to long-term placement. He knows he needs help and for now is willing to go to a SNF. He is volatile and may easily change his mind. Discharge Planning Case management helping with discharge to assisted facility. [id number] signed. Problem List: (1) Syncope and collapse Status: Acute Plan: History of [place], concerned for cardiac source for syncope. Extensive work up in the past. Cardiology consult: Okay to discharge if no events on telemetry. Patient refuses loop recorder, however he may agree to a loop recorder if going to a assisted facility. Pt consult done. he can ambulate Alcohol/ Drug screen done. he admits to occasional cocaine use EEG: Normal awake EEG. Telemetry: No events observed thus far TSH, Free T4: Within normal limits Troponins x2: Within normal limits (2) FEN/PPX Status: Acute Plan: DVT PPX Heparin 5000 units SQ Q12H SCD Bilateral Heart Healthy diet Chronic Medical Problems: Prior [place]: continue aspirin 81mg daily, nitroglycerin 0.3mg sublingual PRN, isosorbide mononitrate 60mg twice daily Coronary artery disease status post CABG & stent placement: Effient 10mg tab daily Chronic pain: Oxycodone 30mg Q6H as needed Hyperlipidemia: atorvastatin 80mg daily Hypertension: metoprolol 25mg twice daily COPD: Albuterol inhaler 2 puffs Q4-6H as needed CHF: furosemide 20mg daily Neuropathy: Gabapentin 600mg three times a day Anxiety: Alprazolam 1mg twice daily History of seizure disorder: levetiracetam 500mg twice daily Gastritis: Protonix 40mg daily Seasonal Allergies: Fluticasone nasal spray 50 Mcg/Act 1 [place] each nostril twice daily Tobacco Use: Nicotine 14mg patch daily (3) Adjustment disorder with mixed anxiety and depressed mood Status: Chronic Plan: He has a history of depression and one reported suicide attempt in past. 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 He also states he just went to [place] and was performing there recently. It is unclear if he could be delusional. appreciate help of Dr Norris with any suggestions Kenny Shahid MD R1 March 29, 2017 08:59
[2017-03-29] MEDS: FLUTICASONE PROPIONATE 50 MCG/ACT 16 GM NASAL SPRAY NASAL SCH (09:00)
[2017-03-29] MEDS: ATORVASTATIN 80 MG TAB PO SCH (09:20)
[2017-03-29] MEDS: ALPRAZolam 1 MG TAB PO SCH (09:20)
[2017-03-29] MEDS: levETIRAcetam 500 MG TAB PO SCH (09:20)
[2017-03-29] MEDS: SODIUM CHLORIDE 0.9% FLUSH 10 ML FLUSH IV FLUSH SCH (09:20)
[2017-03-29] MEDS: PANTOPRAZOLE SOD 40 MG DELAYED RELEASE TAB PO SCH (09:20)
[2017-03-29] MEDS: NICOTINE 14 MG/24 HR PATCH T-DERMAL SCH (09:20)
[2017-03-29] MEDS: ASPIRIN 81 MG CHEW TAB CHEW SCH (09:20)
[2017-03-29] MEDS: PRASUGREL 10 MG TAB PO SCH (09:20)
[2017-03-29] MEDS: diphenhydrAMINE HCL 25 MG CAP PO PRN (09:32)
[2017-03-29 11:28] VITALS: BP_SYST 116; BP_SYST 118; BP_SYST 121; BP_DIAS 63; BP_DIAS 70; PULSE 88; RESP 18; TEMP 97.8; O2SAT 95
--- NOTE | 2017-03-29 13:53 | HHI.FPPN ---
Subjective Remarks Mr Zazueta is very happy to be going to [facility] today. He still complains of itching skin and requests different hydrocortisone cream. Benadryl is helping. His bruises are stable compared to yesterday. Objective Vitals Vital Signs Date Time Temp Pulse Resp B/P Pulse Ox O2 Delivery O2 Flow Rate FiO2 03/29/17 11:28 97.8 88 18 118/63 95 116/63 121/70 03/29/17 08:30 88 03/29/17 07:35 97.9 86 18 102/64 94 03/29/17 03:32 98.1 88 19 120/70 96 03/29/17 00:50 77 03/29/17 00:17 98.0 81 19 102/55 91 03/28/17 19:35 98.2 96 19 134/78 96 03/28/17 16:00 98.0 89 18 115/65 96 Result Diagram: 03/28/17 0459 03/28/17 0459 Objective Remarks GENERAL: This is a well-nourished, well-developed patient, in no apparent distress walking in room and eating well. SKIN: multiple bruises on right medial forearm front and back with some bruising on left forearm as well. Cool and dry. few scattered macular erythematous areas arms and shoulder HEAD: bruising on right forehead with small hematoma EYES: Pupils equal round and reactive. Extraocular motions intact. No scleral icterus. No injection or drainage. ENT: Nose without bleeding, purulent drainage or septal hematoma. Airway patent. NECK: Trachea midline. No JVD or lymphadenopathy. Supple, nontender, no meningeal signs. CARDIOVASCULAR: Regular rate and rhythm without murmurs, gallops, or rubs. RESPIRATORY: Clear to auscultation. Breath sounds equal bilaterally. No wheezes , rales, or rhonchi. GASTROINTESTINAL: Abdomen soft, non-tender, nondistended. No hepato-splenomegaly , or palpable masses. No guarding. MUSCULOSKELETAL: Extremities without clubbing, cyanosis, or edema. No joint tenderness, effusion, or edema noted. No calf tenderness. Negative Homans sign bilaterally. NEUROLOGICAL: Awake and alert. Cranial nerves II through XII intact. Motor and sensory grossly within normal limits. Five out of 5 muscle strength in all muscle groups. Normal speech. Urinary Catheter: No Vascular Central Line Catheter: No A/P Assessment and Plan 61 year old man with history of [place] 11/13/16 with history of syncope, possibility of cardiogenic origin given history. Plan as below. He agrees to jail placement. He knows he needs help and for now is willing to go to a SNF. Discharge Planning Case management helping with discharge to [facility] facility. [id number] signed. Problem List: (1) Syncope and collapse Status: Acute Plan: History of [place], concerned for cardiac source for syncope. Extensive work up in the past. Cardiology consult: Okay to discharge if no events on telemetry. Patient refused loop recorder, however he may agree to a loop recorder if going to a [facility] facility. He can follow up with Dr Perez as an outpt Pt consult done. he can ambulate Alcohol/ Drug screen done. he admits to occasional cocaine use, not recent. negative in blood test EEG: Normal awake EEG. Telemetry: No events observed thus far TSH, Free T4: Within normal limits Troponins x2: Within normal limits (2) FEN/PPX Status: Acute Plan: DVT PPX Heparin 5000 units SQ Q12H SCD Bilateral Heart Healthy diet Chronic Medical Problems: Prior [place]: continue aspirin 81mg daily, nitroglycerin 0.3mg sublingual PRN, isosorbide mononitrate 60mg twice daily Coronary artery disease status post CABG & stent placement: Effient 10mg tab daily Chronic pain: Oxycodone 30mg Q6H as needed Hyperlipidemia: atorvastatin 80mg daily Hypertension: metoprolol 25mg twice daily COPD: Albuterol inhaler 2 puffs Q4-6H as needed CHF: furosemide 20mg daily Neuropathy: Gabapentin 600mg three times a day Anxiety: Alprazolam 1mg twice daily History of seizure disorder: levetiracetam 500mg twice daily Gastritis: Protonix 40mg daily Seasonal Allergies: Fluticasone nasal spray 50 Mcg/Act 1 [place] each nostril twice daily Tobacco Use: Nicotine 14mg patch daily (3) Adjustment disorder with mixed anxiety and depressed mood Status: Chronic Plan: He has a history of depression and one reported suicide attempt in past. 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 He also states he just went to [place] and was performing there recently. appreciate help of Dr Norris with any suggestions Gina Wu MD March 29, 2017 13:53
[2017-03-29] MEDS ORDERED: OXYC-395 PO (13:59)
[2017-03-29] MEDS ORDERED: XANA1TAB2 PO (13:59)
--- NOTE | 2017-03-30 07:32 | HHI.DS ---
Discharge Summary Admission Date March 26, 2017 at 11:17 Discharge Date: March 29, 2017 Admitting Diagnosis syncope. Closed head injury. Multiple contusions (1) Syncope and collapse Diagnosis: Principal Plan: History of [place], concerned for cardiac source for syncope. Extensive work up in the past. Cardiology consult: Okay to discharge if no events on telemetry. Patient refused loop recorder, however he may agree to a loop recorder if going to a [place] [facility] facility. He can follow up with Dr Perez as an outpt Pt consult done. he can ambulate Alcohol/ Drug screen done. he admits to occasional cocaine use, not recent. negative in blood test EEG: Normal awake EEG. Telemetry: No events observed thus far TSH, Free T4: Within normal limits Troponins x2: Within normal limits (2) FEN/PPX Diagnosis: Secondary Plan: DVT PPX Heparin 5000 units SQ Q12H SCD Bilateral Heart Healthy diet Chronic Medical Problems: Prior [place]: continue aspirin 81mg daily, nitroglycerin 0.3mg sublingual PRN, isosorbide mononitrate 60mg twice daily Coronary artery disease status post CABG & stent placement: Effient 10mg tab daily Chronic pain: Oxycodone 30mg Q6H as needed Hyperlipidemia: atorvastatin 80mg daily Hypertension: metoprolol 25mg twice daily COPD: Albuterol inhaler 2 puffs Q4-6H as needed CHF: furosemide 20mg daily Neuropathy: Gabapentin 600mg three times a day Anxiety: Alprazolam 1mg twice daily History of seizure disorder: levetiracetam 500mg twice daily Gastritis: Protonix 40mg daily Seasonal Allergies: Fluticasone nasal spray 50 Mcg/Act 1 [place] each nostril twice daily Tobacco Use: Nicotine 14mg patch daily (3) Adjustment disorder with mixed anxiety and depressed mood Diagnosis: Secondary Plan: He has a history of depression and one reported suicide attempt in past. 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 He also states he just went to [place] and was performing there recently. Psychiatry consulted Consult[facility] Cardiology, psychiatry Brief History Mr Zazueta is a 61 year old white male with a history of [place] 11/13/2016 with stent placement and has made many frequent (16) visits in 2017 for various complaints. Patient reports "blacking out" 3 times in the last 2 days. He blacked out and fell down stairs (admission 09/29/16), blacking out with falls have been happening ever since, becoming more frequent. This episode: fell at bus stop, "fell like a tree", hit his head on concrete, was out for a few minutes and came to when still on the ground. Reports various aches, pains and bruising from falling repeatedly. He has had double vision since his original fall. Patient reports falls feels as if "light switch goes off", doesn't know when they are going to happen, no dizziness or lightheadedness before falling. He reports his extremities shaking for hours, unrelated to the falls. Patient recently reportedly went to [place] 2 1/2 weeks ago, for 6 days and had no episodes of blacking out. He goes to [place] once a month to get his prescriptions of Xanax 1mg twice a day and Roxicodone 30mg q6h. Patient reports thoughts about hurting himself after being told to leave the ER. He has had prior thoughts but no prior attempts of self harm recently with one suicide attempt in distant past reported in his record. Prior workup: 11/13/16 - Echo - Left ventricle size was upper limit of normal, wall thickness normal. Ejection fraction 40-45%, Diffuse hypokinesis. Mild mitral regurgitation , right atrium mildly dilated, mild tricuspid regurgitation 12/20/16 - Stress test - No EKG abnormalities present to suggest ischemia 01/03/17 - Carotid US - no evidence of flow-limiting carotid stenosis 01/03/17 - Holter Monitor - predominantly sinus, no atrial fibrillation, ventricular runs, or pauses were appreciated 01/05/17 - Brain MRI - Left maxillary sinus disease, no acute intracranial findings 01/22/17 - EEG - Normal predominantly awake EEG 03/26/17 - Head CT - Questionable minimal subarachnoid hemorrhage on the left. No midline shift or mass effect. These results were discussed with neurosurgeon Dr. Avitia, and there is no subarachnoid hemorrhage. No intervention or additional imaging to be done. Overnight, pt wanted to walk around the [facility] and "pass out" so he could be observed by the staff when this happened. Cardiology saw him and recommended a monitor to evaluate for arrhythmias however Mr Zazueta is refusing at this time for somewhat unclear reasons. He states he doesn't want to go out of the hospital with a monitor and questionably took off his tele last night as there is little on his telemetry on this hospitalization. Mr Zazueta does want long term care administrator placement if possible as he is doing poorly overall at home/hotel where he lives. He comes back to this hospital almost every week and per old records he goes to other hospitals as well. He is not complaining about chest pain. It has been explained to him multiple times that he could possibly be having an arrhythmia that is giving him syncope. The importance of determining this and the method of determining this are very important but he changes his mind repeatedly about what he wants to do. When discharge plans were brought up, he told his nurse that "he would hurt himself if he left the hospital". He did not want to commit suicide at this moment. Psychiatry was consulted to help with decisions on how serious he is and what meds or other follow up may help. He has refused to see any specialists as an outpatient as he reports he "passes out" on the way to his appointments. Otherwise today he is doing well. He's eating and drinking fluids and walking around in his room in no distress. CBC/BMP: 03/28/17 0459 03/28/17 0459 Significant Findings Laboratory Tests Test 03/28/17 04:59 White Blood Count 11.5 TH/MM3 (4.0-11.0) Red Blood Count 4.07 MIL/MM3 (4.50-5.90) Hemoglobin 10.9 GM/DL (13.0-17.0) Hematocrit 33.9 % (39.0-51.0) Mean Corpuscular Hemoglobin 26.8 PG (27.0-34.0) Monocytes % 11 % (0-8) Myelocytes 1 % (0-0) Blood Urea Nitrogen 26 MG/DL (7-18) Estimat Glomerular Filtration 70 ML/MIN (>89) Rate Random Glucose 124 MG/DL (74-106) Calcium Level 8.4 MG/DL (8.5-10.1) Imaging Head CT 03/26/2017: Questionable minimal subarachnoid hemorrhage on the left, no midline shift or mass effect C-spine CT 03/26/2017: No fracture or subluxation Elbow x-ray 03/26/2017: No evidence of acute fracture Aorta ultrasound 03/27/2017: No evidence of aneurysm PE at Discharge GENERAL: This is a well-nourished, well-developed patient, in no apparent distress walking in room and eating well. SKIN: multiple bruises on right medial forearm front and back with some bruising on left forearm as well. Cool and dry. few scattered macular erythematous areas arms and shoulder HEAD: bruising on right forehead with small hematoma EYES: Pupils equal round and reactive. Extraocular motions intact. No scleral icterus. No injection or drainage. ENT: Nose without bleeding, purulent drainage or septal hematoma. Airway patent. NECK: Trachea midline. No JVD or lymphadenopathy. Supple, nontender, no meningeal signs. CARDIOVASCULAR: Regular rate and rhythm without murmurs, gallops, or rubs. RESPIRATORY: Clear to auscultation. Breath sounds equal bilaterally. No wheezes , rales, or rhonchi. GASTROINTESTINAL: Abdomen soft, non-tender, nondistended. No hepato-splenomegaly , or palpable masses. No guarding. MUSCULOSKELETAL: Extremities without clubbing, cyanosis, or edema. No joint tenderness, effusion, or edema noted. No calf tenderness. Negative Homans sign bilaterally. NEUROLOGICAL: Awake and alert. Cranial nerves II through XII intact. Motor and sensory grossly within normal limits. Five out of 5 muscle strength in all muscle groups. Normal speech. Hospital Course Patient was kept on telemetry, with no events recorded during his hospitalization. EEG was obtained which showed normal awake and sleep EEG. Troponins were < 0.02 x3. Electrolytes were within normal limits. Urine drug screen was positive for benzodiazepines. ED physician had spoken with Dr. Avitia , neurosurgery, regarding the head CT radiology official report showing a questionable minimal subarachnoid hemorrhage on the left, per neurosurgery advised that the CT scan was normal and that the patient could be discharged. PT evaluated the patient, patient could ambulate independently walking a minimum of 150 feet without assistance. Carotid ultrasound was deferred as the patient had a recent ultrasound in December of this year. Cardiology was consulted for recommendations given concern for cardiogenic syncope. Recommended consideration to be given to stopping Effient secondary to his frequent falls, however this would increase his risk for a cardiac event, recommended continuing Effient until 6 months which would be an additional 2 months and then reconsider discontinuing Effient. Recommended keeping the patient on telemetry, offered the patient a loop recorder however the patient continued to decline this. Prior workup: 11/13/16 - Echo - Left ventricle size was upper limit of normal, wall thickness normal. Ejection fraction 40-45%, Diffuse hypokinesis. Mild mitral regurgitation , right atrium mildly dilated, mild tricuspid regurgitation 12/20/16 - Stress test - No EKG abnormalities present to suggest ischemia 01/03/17 - Carotid US - no evidence of flow-limiting carotid stenosis 01/03/17 - Holter Monitor - predominantly sinus, no atrial fibrillation, ventricular runs, or pauses were appreciated 01/05/17 - Brain MRI - Left maxillary sinus disease, no acute intracranial findings 01/22/17 - EEG - Normal predominantly awake EEG Pt Condition on Discharge: Stable Discharge Disposition: Discharge to SNF Discharge Instructions DIET: Follow Instructions for: Heart Healthy Diet Activities you can perform: See Additionl Instruction Other Activity Instructions: Per PT recs Follow up Referrals: Cardiology Patient may need a loop recorder PCP Follow-up - 1 Week New Medications: Alprazolam (Xanax) 1 Mg Tab 1 MG PO BID #28 TAB Oxycodone (Oxycodone) 10 Mg Tab 30 MG PO Q6H PRN PAIN 1-10 #28 TAB Continued Medications: Albuterol 18 GM Inh (Ventolin Hfa 18 GM Inh) 90 Mcg/Act Aer 2 PUFF INH Q4-6H PRN SOB/WHEEZING #1 INHALER Aspirin (Aspirin) 81 Mg Chew 81 MG CHEW DAILY Blood Clot Prevention #30 Ref 0 TAB Atorvastatin (Lipitor) 80 Mg Tab 80 MG PO DAILY cholesterol #30 TAB Fluticasone Nasal [place] (Fluticasone Nasal [place]) 50 Mcg/Act Naspr 1 SPRAY NASAL BID nasal congestion #1 BOTTLE Isosorbide Mononitrate ER (Isosorbide Mononitrate ER) 60 Mg Tab 60 MG PO BID cad Days 30 Ref 0 TAB Nitroglycerin SL (Nitroglycerin SL) 0.3 Mg Subl 0.3 MG SL DIRECTED ONE TABLET UNDER THE TONGUE NEEDED FOR CHEST PAIN, MAY REPEAT EVERY FIVE MINUTES FOR A TOTAL OF 3 DOSES OR CALL 911 IF NO RELIEF. PRN CHEST PAIN #10 Ref 0 TAB.SL Pantoprazole (Protonix) 40 Mg Tab 40 MG PO DAILY Reflux #14 Ref 0 TAB Prasugrel (Effient) 10 Mg Tab 10 MG PO DAILY cad #30 TAB Discontinued Medications: Alprazolam (Alprazolam) 1 Mg Tab 1 MG PO BID ANXIETY Ref 0 TAB Furosemide (Furosemide) 20 Mg Tab 20 MG PO DAILY CHF #30 TAB Gabapentin (Gabapentin) 600 Mg Tab 600 MG PO TID #90 Ref 0 TAB Oxycodone (Oxycodone) 30 Mg Tab 30 MG PO Q6H PRN PAIN Ref 0 TAB Kenny Shahid MD R1 March 30, 2017 07:32
[2017-04-01 19:32] VITALS: BP 146/65; PULSE 62; RESP 18; TEMP 100.5; O2SAT 97
== END 2017-03-29 16:11 ==
LOC: NEPC 07:03 → NEDA 11:17 → NEPGCP 15:34
PROVIDERS: ADMIT Family Medicine; ATTEND Family Medicine
DX: R55 Syncope and collapse (principal); W01.10XA Fall on same level from slipping, tripping and stumbling with subsequent striking against unspecified object, initial encounter; Z91.81 History of falling; M54.2 Cervicalgia; I25.10 Atherosclerotic heart disease of native coronary artery without angina pectoris; Z95.5 Presence of coronary angioplasty implant and graft; Z95.1 Presence of aortocoronary bypass graft; Z79.82 Long term (current) use of aspirin; M25.522 Pain in left elbow; Z79.01 Long term (current) use of anticoagulants; M19.90 Unspecified osteoarthritis, unspecified site; E78.00 Pure hypercholesterolemia, unspecified; R07.9 Chest pain, unspecified; J44.9 Chronic obstructive pulmonary disease, unspecified; K21.9 Gastro-esophageal reflux disease without esophagitis; K44.9 Diaphragmatic hernia without obstruction or gangrene; I11.0 Hypertensive heart disease with heart failure; I25.2 Old myocardial infarction; F12.10 Cannabis abuse, uncomplicated; Z79.899 Other long term (current) drug therapy; S09.90XA Unspecified injury of head, initial encounter; S50.02XA Contusion of left elbow, initial encounter; H53.2 Diplopia; I08.1 Rheumatic disorders of both mitral and tricuspid valves; G89.29 Other chronic pain; E78.5 Hyperlipidemia, unspecified; G62.9 Polyneuropathy, unspecified; K52.9 Noninfective gastroenteritis and colitis, unspecified; F14.90 Cocaine use, unspecified, uncomplicated; I25.5 Ischemic cardiomyopathy; I95.9 Hypotension, unspecified; F43.23 Adjustment disorder with mixed anxiety and depressed mood; R45.4 Irritability and anger
CPT/HCPCS: 70450; 72125; 73080; 76775; 80048; 80053; 80307; 84439; 84443; 84484; 85007; 85025; 85027; 85610; 85730; 95819; 97162; 99285; G0378; G8987; G8988; J1644; J2405

== ENCOUNTER 2017-08-26 17:45 | Observation (INO) | payer MEDICAID, OTHER ==
[~2017-08-26] VITALS: Ht 167.6 cm; Wt 72.0 kg
[~2017-08-26 17:45] MED LIST changes: -ALPR1TAB3 PO; -FURO20TA PO; -GABA600T PO; +OXYC-395 PO; -OXYC30TA PO; +XANA1TAB2 PO
[2017-08-26 18:18] VITALS: BP 148/78; PULSE 88; RESP 25; TEMP 99.3
--- NOTE | 2017-08-26 18:52 | PD ---
HPI Chief Complaint: Chest Pain Time Seen by Provider: 18:34 Travel History International Travel<30 days: No Contact w/Intl Traveler<30days: No Traveled to known affect area: No History of Present Illness HPI 62-year-old male brought in by EMS with [place] medical history of multiple stents and open heart surgery. Last stent was November of this year. Patient states he developed chest pain approximately 2 hours prior to arrival. Patient took 4 baby aspirin as well as 1 nitroglycerin of his own. Patient was given 2 more sublingual nitroglycerin in the right with some improvement. Pain is now 8 out of 10 and constant. He is concerned as is his typical chest pain for him. Patient denies nausea or vomiting. Patient's easter bunny was Dr. Ivey and is now he is allergic to ketorolac and penicillin. PFSH Past Medical History Hx Anticoagulant Therapy: Yes (He does not know the name of the medication) Arthritis: Yes Asthma: No Blood Disorders: No Anxiety: Yes Depression: Yes Heart Rhythm Problems: Yes Cancer: No Cardiac Catheterization: Yes Cardiovascular Problems: Yes High Cholesterol: Yes Chemotherapy: No Chest Pain: Yes Congestive Heart Failure: No COPD: Yes Coronary Artery Disease: Yes Diabetes: No Diminished Hearing: No Endocrine: No Gastrointestinal Disorders: Yes GERD: Yes Genitourinary: No Hiatal Hernia: Yes Hypertension: Yes Implanted Vascular Access Dvce: Yes Kidney Stones: Yes Musculoskeletal: No Neurologic: Yes (multiple episodes of syncope, EVAL BY NEURO WHO STATES "CARDIAC") Psychiatric: Yes Reproductive: No Respiratory: Yes Immunizations Current: Yes Migraines: Yes Myocardial Infarction: Yes Radiation Therapy: No Sleep Apnea: No Thyroid Disease: No Past Surgical History Body Medical Devices: STENTS Cardiac Surgery: Yes Coronary Artery Bypass Graft: Yes Coronary Stent: Yes (X5) Thoracic Surgery: Yes (HX of CABG x 2) Other Surgery: Yes (CABG, STENTING) Family History Family Myocardial Infarction: Yes Social History Alcohol Use: No Tobacco Use: Yes Substance Use: Yes Allergies-Medications (Allergen,Severity, Reaction): Coded Allergies: ketorolac (Verified Allergy, Severe, RASH, 08/26/17) penicillin G (Verified Allergy, Unknown, Anaphylaxis, 08/26/17) Reported Meds & Prescriptions Reported Meds & Active Scripts Active Oxycodone (Oxycodone HCl) 10 Mg Tab 30 Mg PO Q6H PRN Xanax (Alprazolam) 1 Mg Tab 1 Mg PO BID Protonix (Pantoprazole Sodium) 40 Mg Tab 40 Mg PO DAILY Isosorbide Mononitrate ER (Isosorbide Mononitrate) 60 Mg Tab 60 Mg PO BID 30 Days Effient (Prasugrel) 10 Mg Tab 10 Mg PO DAILY Lipitor (Atorvastatin Calcium) 80 Mg Tab 80 Mg PO DAILY Aspirin 81 Mg Chew 81 Mg CHEW DAILY Fluticasone Nasal [place] 50 Mcg/Act Naspr 1 [place] NASAL BID Ventolin Hfa 18 GM Inh (Albuterol Sulfate) 90 Mcg/Act Aer 2 Puff INH Q4-6H PRN Nitroglycerin SL (Nitroglycerin) 0.3 Mg Subl 0.3 Mg SL DIRECTED PRN ONE TABLET UNDER THE TONGUE NEEDED FOR CHEST PAIN, MAY REPEAT EVERY FIVE MINUTES FOR A TOTAL OF 3 DOSES OR CALL 911 IF NO RELIEF. Reported Potassium Chloride ER (Potassium Chloride) 20 Meq Tab 20 Meq PO DAILY Physical Exam Narrative GENERAL: Patient appears stable, although somewhat anxious. SKIN: Warm and dry. Normal color. Normal turgor. HEAD: Atraumatic. Normocephalic. EYES: Pupils equal and round. No scleral icterus. No injection or drainage. ENT: No nasal bleeding or discharge. Mucous membranes pink and moist. Pharynx is clear. Airway is patent NECK: Trachea midline. Supple nontender. CARDIOVASCULAR: Regular rate and rhythm. No murmurs gallops or rubs RESPIRATORY: No accessory muscle use. Clear to auscultation. Breath sounds equal bilaterally. GASTROINTESTINAL: Abdomen soft, non-tender, nondistended. Hepatic and splenic margins not palpable. MUSCULOSKELETAL: Extremities without clubbing, cyanosis, or edema. No obvious deformities. NEUROLOGICAL: Awake and alert. No obvious cranial nerve deficits. Motor grossly within normal limits. Five out of 5 muscle strength in the arms and legs. Normal speech. PSYCHIATRIC: Appropriate mood and affect; insight and judgment normal. Data Data Last Documented VS Vital Signs Date Time Temp Pulse Resp B/P (MAP) Pulse Ox O2 Delivery O2 Flow Rate FiO2 08/26/17 19:21 76 18 160/87 (111) 98 Nasal Cannula 2.00 151/85 (107) 08/26/17 18:18 99.3 Orders Orders Vascular Access Team Consult/P PRN (08/26/17 18:33) Vascular Poc Ultrasound (08/26/17 ) Electrocardiogram (08/26/17 18:48) Ckmb (Isoenzyme) Profile (08/26/17 18:48) Complete Blood Count With Diff (08/26/17 18:48) Comprehensive Metabolic Panel (08/26/17 18:48) Magnesium (Mg) (08/26/17 18:48) Prothrombin Time / Inr (Pt) (08/26/17 18:48) Act Partial Throm Time (Ptt) (08/26/17 18:48) Troponin I (08/26/17 18:48) Chest, Single Ap (08/26/17 18:48) Ecg Monitoring (08/26/17 18:48) Bilateral Bp Monitoring (08/26/17 18:48) Iv Access Insert/Monitor (08/26/17 18:48) Oximetry (08/26/17 18:48) Oxygen Administration (08/26/17 18:48) Morphine Inj (Morphine Inj) (08/26/17 19:00) Nitroglycerin 2% Oint (Nitroglycerin 2% (08/26/17 19:00) Sodium Chloride 0.9% Flush (Ns Flush) (08/26/17 19:00) Metoprolol Tartrate Inj (Lopressor Inj) (08/26/17 19:00) Sodium Chlorid 0.9% 500 Ml Inj (Ns 500 M (08/26/17 19:00) CKMB (08/26/17 18:59) CKMB% (08/26/17 18:59) Hydromorphone Pf Inj (Dilaudid Pf Inj) (08/26/17 19:45) Activity Bed Rest With Brp (08/26/17 20:04) Vital Signs (Adult) Q4H (08/26/17 20:04) Cardiac Rhythm .As Directed (08/26/17 20:04) Notify Dr: Other .PRN (08/26/17 20:04) Notify Dr. Parameters (08/26/17 20:04) Resp Oxygen Nasal Cannula (08/26/17 ) Ckmb (Isoenzyme) Profile (08/26/17 20:04) Ckmb (Isoenzyme) Profile (08/26/17 23:04) Troponin I (08/26/17 20:04) Troponin I (08/26/17 23:04) Magnesium (Mg) (08/26/17 20:04) Electrocardiogram (08/26/17 20:04) Electrocardiogram (08/26/17 23:04) ^ Obtain (08/26/17 20:04) Sodium Chloride 0.9% Flush (Ns Flush) (08/26/17 20:15) Sodium Chloride 0.9% Flush (Ns Flush) (08/26/17 21:00) Morphine Inj (Morphine Inj) (08/26/17 20:15) Ondansetron Inj (Zofran Inj) (08/26/17 20:15) Filing Machine Operator / Telemetry PONCE.Q8H (08/26/17 20:04) Admit Order (Ed Use Only) (08/26/17 20:04) Labs Laboratory Tests Test 08/26/17 18:59 White Blood Count 12.4 TH/MM3 Red Blood Count 5.50 MIL/MM3 Hemoglobin 15.8 GM/DL Hematocrit 47.4 % Mean Corpuscular Volume 86.1 FL Mean Corpuscular Hemoglobin 28.8 PG Mean Corpuscular Hemoglobin Concent 33.4 % Red Cell Distribution Width 17.5 % Platelet Count 237 TH/MM3 Mean Platelet Volume 8.7 FL Neutrophils (%) (Auto) 75.3 % Lymphocytes (%) (Auto) 18.3 % Monocytes (%) (Auto) 5.8 % Eosinophils (%) (Auto) 0.3 % Basophils (%) (Auto) 0.3 % Neutrophils # (Auto) 9.3 TH/MM3 Lymphocytes # (Auto) 2.3 TH/MM3 Monocytes # (Auto) 0.7 TH/MM3 Eosinophils # (Auto) 0.0 TH/MM3 Basophils # (Auto) 0.0 TH/MM3 CBC Comment DIFF FINAL Differential Comment Prothrombin Time 10.4 SEC Prothromb Time International Ratio 0.9 RATIO Activated Partial Thromboplast Time 22.4 SEC Blood Urea Nitrogen 13 MG/DL Creatinine 1.09 MG/DL Random Glucose 88 MG/DL Total Protein 7.6 GM/DL Albumin 4.2 GM/DL Calcium Level 9.4 MG/DL Magnesium Level 2.1 MG/DL Alkaline Phosphatase 73 U/L Aspartate Amino Transf (AST/SGOT) 14 U/L Alanine Aminotransferase (ALT/SGPT) 25 U/L Total Bilirubin 0.8 MG/DL Sodium Level 140 MEQ/L Potassium Level 3.7 MEQ/L Chloride Level 108 MEQ/L Carbon Dioxide Level 23.5 MEQ/L Anion Gap 9 MEQ/L Estimat Glomerular Filtration Rate 69 ML/MIN Total Creatine Kinase 114 U/L Creatine Kinase MB 2.3 NG/ML Troponin I LESS THAN 0.02 NG/ML [facility] Medical Decision Making Medical Screen Exam Complete: Yes Emergency Medical Condition: Yes Medical Record Reviewed: Yes Differential Diagnosis Atypical chest pain. Unstable angina. Cardiac syndrome. Non-STEMI. Narrative Course Patient's felt to be medically stable although in pain. EKG shows normal sinus rhythm without ST changes and review with Dr. Rao. CBC, CMP, cardiac panel, coagulation studies ordered. IV access was obtained patient was given 4 mg morphine IV as well as metoprolol 5 mg per protocol 3. 1 inch of nitroglycerin placed, was placed. CBC is unremarkable. Patient is reassessed and found to be improved with the pain from 8 down to 5 at 1940 hrs. Patient is given 1 mg hydromorphone IV. CBC is unremarkable. Slight leukocytosis of 12.4. Coagulation studies are normal. CMP is unremarkable. First troponin is less than 0.02. Patient is admitted to the chest pain center. Diagnosis Primary Impression: Chest pain Qualified Codes: R07.9 - Chest pain, unspecified Admitting Information Admitting Physician Requests: Observation Condition: Stable Ignacio Tubbs Aug 26, 2017 18:52
[2017-08-26] MEDS ORDERED: SODIUM CHLORID 0.9% 500 ML INJ 500 ML IV ONE (19:00)
[2017-08-26] MEDS ORDERED: NITROGLYCERIN 2% OINT 1 GM PACKET TOP ONE (19:00)
[2017-08-26] MEDS ORDERED: MORPHINE SULFATE 4 MG/ML INJ IV PUSH ONE (19:00)
[2017-08-26] MEDS: METOPROLOL TARTRATE 5 MG/5 ML VIAL IVS SCH ×3 (19:00→19:10)
[2017-08-26] MEDS ORDERED: SODIUM CHLORIDE 0.9% FLUSH 10 ML FLUSH IVF PRN (19:00)
--- NOTE | 2017-08-26 19:11 | RADRPT ---
EXAM DATE/TIME: 08/26/2017 19:10 [place] COMPARISON: CHEST SINGLE AP, March 13, 2017, 20:17. INDICATIONS : Chest pain. MEDICAL HISTORY : Hypertension. Myocardial infarction. SURGICAL HISTORY : Coronary artery stent. CABG. ENCOUNTER: Initial ACUITY: 1 day PAIN SCORE: 10/10 LOCATION: Bilateral chest FINDINGS: A single view of the chest demonstrates the lungs to be symmetrically aerated without evidence of mas s, infiltrate or effusion. The cardiomediastinal contours are unremarkable. Osseous structures are intact with again evidence of median sternotomy CABG. CONCLUSION: No acute disease. No significant change has occurred. Oren Caldwell MD on August 26, 2017 at 19:09 Board Certified Radiologist. This report was verified electronically.
[2017-08-26] MEDS ORDERED: POTA-163 PO ×2 (19:13)
[2017-08-26 19:14] VITALS: BP 139/77; PULSE 76; RESP 20; O2SAT 98
[2017-08-26 19:21] VITALS: BP_SYST 151; BP_SYST 160; BP_DIAS 85; BP_DIAS 87; PULSE 76; RESP 18; O2SAT 98
[2017-08-26 19:24] LABS: AUTOMATED NEUTROPHIL # 9.3 TH/MM3 (1.8-7.7); BASOPHIL % 0.3 % (0.0-2.0); EOSINOPHIL % 0.3 % (0.0-4.0); HEMATOCRIT 47.4 % (39.0-51.0); HEMO FLAGS DIFF FINAL; LYMPH % 18.3 % (9.0-44.0); LYMPHOCYTE # 2.3 TH/MM3 (1.0-4.8); MEAN CELL VOLUME 86.1 FL (80.0-100.0); MEAN CORPUSCULAR HEMOGLOBIN 28.8 PG (27.0-34.0); MEAN CORPUSCULAR HGB CONC 33.4 % (32.0-36.0); MONO % 5.8 % (0.0-8.0); NEUT % 75.3 % (16.0-70.0); PLATELET COUNT 237 TH/MM3 (150-450); RED CELL DISTRIBUTION WIDTH 17.5 % (11.6-17.2); WHITE BLOOD COUNT 12.4 TH/MM3 (4.0-11.0)
[2017-08-26 19:29] LABS: INTERNATIONAL NORMALIZED RATIO 0.9 RATIO; PROTHROMBIN TIME - PATIENT 10.4 SEC (9.8-11.6)
[2017-08-26 19:31] LABS: APTT (PATIENT) 22.4 SEC (24.3-30.1)
[2017-08-26 19:36] LABS: ANION GAP 9 MEQ/L (5-15); BICARBONATE 23.5 MEQ/L (21.0-32.0); BLOOD UREA NITROGEN 13 MG/DL (7-18); CHLORIDE 108 MEQ/L (98-107); GLOMERULAR FILTRATION RATE 69 ML/MIN (>89); MAGNESIUM 2.1 MG/DL (1.5-2.5); POTASSIUM 3.7 MEQ/L (3.5-5.1); SODIUM (NA) 140 MEQ/L (136-145)
[2017-08-26 19:37] LABS: AST (GOT) 14 U/L (15-37)
[2017-08-26 19:40] LABS: ALKALINE PHOSPHATASE 73 U/L (45-117); ALT (GPT) 25 U/L (12-78); CREATINE KINASE 114 U/L (39-308); TOTAL BILIRUBIN ADULT 0.8 MG/DL (0.2-1.0)
[2017-08-26] MEDS ORDERED: HYDROmorphone HCL PF 1 MG/ML VIAL IV PUSH ONE (19:45)
[2017-08-26 20:00] LABS: CKMB 2.3 NG/ML (0.5-3.6)
[2017-08-26] MEDS ORDERED: MORPHINE SULFATE 4 MG/ML INJ IV PUSH PRN (20:15)
[2017-08-26] MEDS ORDERED: SODIUM CHLORIDE 0.9% FLUSH 10 ML FLUSH IV FLUSH PRN (20:15)
[2017-08-26] MEDS: SODIUM CHLORIDE 0.9% FLUSH 10 ML FLUSH IV FLUSH SCH (20:27)
[2017-08-26 22:25] VITALS: BP 135/77; PULSE 67; RESP 18; TEMP 98.2; O2SAT 97
[2017-08-26] MEDS: ONDANSETRON HCL 4 MG/2 ML VIAL IV PUSH PRN (23:37)
[2017-08-27 00:22] VITALS: BP 120/70; PULSE 80; RESP 18; TEMP 98.2; O2SAT 97
[2017-08-27] MEDS ORDERED: MORPHINE SULFATE 4 MG/ML INJ IV PUSH PRN (03:00)
[2017-08-27] MEDS ORDERED: MORPHINE SULFATE 2 MG/ML INJ IV PUSH ONE (03:00)
[2017-08-27 04:19] VITALS: PULSE 69
[2017-08-27 08:00] VITALS: BP 157/88; PULSE 74; RESP 20; TEMP 98.5; O2SAT 98
[2017-08-27 08:32] VITALS: O2SAT 98
[2017-08-27] MEDS: ONDANSETRON HCL 4 MG/2 ML VIAL IV PUSH PRN (09:55)
[2017-08-27] MEDS: SODIUM CHLORIDE 0.9% FLUSH 10 ML FLUSH IV FLUSH SCH (09:56)
--- NOTE | 2017-08-27 09:59 | HHI.HP ---
HPI Primary Care Physician Unknown Chief Complaint Chest pain History of Present Illness This is a 62-year-old male with history of CAD CABG and stents since. History of ischemic cardiomyopathy, hypertension, hyperlipidemia, tobacco abuse. Presents with a complaint of intermittent chest discomfort that began yesterday. Describes it as a pressure in the center of his chest rating down his left arm. Found nothing to bring them on. Nothing seemed to worsen or improve them. Episodes lasting 30-45 minutes. He reports being nauseous, short of breath, and diaphoretic. He has been her multiple times with chest discomfort. At this facility had stenting in November. He has had cardiology consultation since then with one of them mentioning that he had had stenting of for the hospital since. Patient cannot recall if he did or did not have stenting at [facility] since stating "man I had so many of them I can't even remember." Currently denies chest discomfort. States he has been compliant with all his medications. Eats he is following with Dr. Story of cardiology. Patient continues to smoke cigarettes. Review of Systems General: Patient denies fevers, chills recent, and recent travel HEENT: Patient denies headache, sore throat, difficulty swallowing. Cardiovascular: Has the chest discomfort as mentioned above. Denies sensation of heart beating rapidly or irregularly. No syncope. He was diaphoretic. Respiratory: He was short of breath. Denies inspirational chest discomfort. Denies coughing wheezing or hemoptysis. GI: He was nauseous. Patient denies vomiting, diarrhea, abdominal pain, bloody stools. Musculoskeletal: Patient denies joint pain or edema. Denies calf pain or edema. Neurovascular: Patient denies numbness, tingling, weakness in extremities. Denies headache. Endocrine: Denies polyuria and polydipsia. Hematologic: Denies easy bruising. Skin: Denies rash or itching. Past Family Social History Allergies: Coded Allergies: ketorolac (Verified Allergy, Severe, RASH, 08/26/17) penicillin G (Verified Allergy, Unknown, Anaphylaxis, 08/26/17) Past Medical History CAD with CABG and stenting since then. Ischemic cardiomyopathy. Hypertension hyperlipidemia tobacco abuse. Denies diabetes. Past Surgical History CABG. Multiple cardiac catheterizations with stenting. Reported Medications Reported Meds & Active Scripts Active Oxycodone (Oxycodone HCl) 10 Mg Tab 30 Mg PO Q6H PRN Xanax (Alprazolam) 1 Mg Tab 1 Mg PO BID Protonix (Pantoprazole Sodium) 40 Mg Tab 40 Mg PO DAILY Isosorbide Mononitrate ER (Isosorbide Mononitrate) 60 Mg Tab 60 Mg PO BID 30 Days Effient (Prasugrel) 10 Mg Tab 10 Mg PO DAILY Lipitor (Atorvastatin Calcium) 80 Mg Tab 80 Mg PO DAILY Aspirin 81 Mg Chew 81 Mg CHEW DAILY Fluticasone Nasal [place] 50 Mcg/Act Naspr 1 [place] NASAL BID Ventolin Hfa 18 GM Inh (Albuterol Sulfate) 90 Mcg/Act Aer 2 Puff INH Q4-6H PRN Nitroglycerin SL (Nitroglycerin) 0.3 Mg Subl 0.3 Mg SL DIRECTED PRN ONE TABLET UNDER THE TONGUE NEEDED FOR CHEST PAIN, MAY REPEAT EVERY FIVE MINUTES FOR A TOTAL OF 3 DOSES OR CALL 911 IF NO RELIEF. Reported Potassium Chloride ER (Potassium Chloride) 20 Meq Tab 20 Meq PO DAILY Active Ordered Medications Current Medications Medications (Trade) Dose Ordered Sig/Libby Route Start Time Stop Time Status Last Admin (NS Flush) 2 ml UNSCH PRN IV FLUSH 08/26/17 20:15 (NS Flush) 2 ml BID IV FLUSH 08/26/17 21:00 (Zofran Inj) 4 mg Q6H PRN IV PUSH 08/26/17 20:15 08/26/17 23:37 (Morphine Inj) 4 mg Q4H PRN IV PUSH 08/27/17 03:00 (Xanax) 1 mg BID PO 08/27/17 10:00 UNV (Lipitor) 80 mg DAILY PO 08/27/17 10:00 UNV (Imdur) 60 mg BID PO 08/27/17 10:00 UNV (Roxicodone) 30 mg Q6H PRN PO 08/27/17 10:00 UNV (Protonix) 40 mg DAILY PO 08/27/17 10:00 UNV (KCl) 20 meq DAILY PO 08/27/17 10:00 UNV Family History There is family history of CAD. Social History Patient states he has been smoking one quarter pack of cigarettes daily for a year. Prior that he average about one half pack of cigarettes daily for 45 years. Denies alcohol. Smokes marijuana occasionally. No cocaine in over one year. Physical Exam Vital Signs Vital Signs Date Time Temp Pulse Resp B/P (MAP) Pulse Ox O2 Delivery O2 Flow Rate FiO2 08/27/17 08:32 98 08/27/17 08:00 98.5 74 20 157/88 (111) 98 08/27/17 05:28 21 08/27/17 04:19 69 08/27/17 00:22 98.2 80 18 120/70 (87) 97 08/26/17 22:25 98.2 67 18 135/77 (96) 97 08/26/17 21:51 08/26/17 19:21 76 18 160/87 (111) 98 Nasal Cannula 2.00 151/85 (107) 08/26/17 19:15 98 Nasal Cannula 2.00 08/26/17 19:14 76 20 139/77 (97) 98 Nasal Cannula 2.00 08/26/17 18:18 Room Air 08/26/17 18:18 99.3 88 25 148/78 (101) Physical Exam GENERAL: This is a well-nourished, well-developed patient, in no apparent distress. Patient speaks in clear complete sentences. Patient is pleasant. HEENT: Head is atraumatic and normocephalic. Neck is supple without lymphadenopathy and trachea is midline. No JVD or carotid bruits. CARDIOVASCULAR: Regular rate and rhythm without murmurs, gallops, or rubs. RESPIRATORY: Expiratory wheezes at the bases bilaterally. Breath sounds equal bilaterally. No rales, or rhonchi. Chest wall is nontender. No use of accessory muscles. GASTROINTESTINAL: Abdomen is nontender, nondistended. Abdomen soft. No obvious pulsatile mass or bruit. No CVA tenderness. Strong femoral pulses bilaterally. Normal bowel sounds in all quadrants. MUSCULOSKELETAL: Patient is moving upper and lower extremities freely. No calf tenderness or edema, no Homans sign. Strong pulses in upper and lower extremities. NEUROLOGICAL: Patient is alert and oriented. Cranial nerves 2-12 are grossly intact. No focal deficits and speech is clear. SKIN: No rash and turgor is normal. Laboratory Laboratory Tests Test 08/26/17 18:59 08/26/17 21:44 08/27/17 01:00 White Blood Count 12.4 Red Blood Count 5.50 Hemoglobin 15.8 Hematocrit 47.4 Mean Corpuscular Volume 86.1 Mean Corpuscular Hemoglobin 28.8 Mean Corpuscular Hemoglobin Concent 33.4 Red Cell Distribution Width 17.5 Platelet Count 237 Mean Platelet Volume 8.7 Neutrophils (%) (Auto) 75.3 Lymphocytes (%) (Auto) 18.3 Monocytes (%) (Auto) 5.8 Eosinophils (%) (Auto) 0.3 Basophils (%) (Auto) 0.3 Neutrophils # (Auto) 9.3 Lymphocytes # (Auto) 2.3 Monocytes # (Auto) 0.7 Eosinophils # (Auto) 0.0 Basophils # (Auto) 0.0 CBC Comment DIFF FINAL Differential Comment Prothrombin Time 10.4 Prothromb Time International Ratio 0.9 Activated Partial Thromboplast Time 22.4 Blood Urea Nitrogen 13 Creatinine 1.09 Random Glucose 88 Total Protein 7.6 Albumin 4.2 Calcium Level 9.4 Magnesium Level 2.1 2.0 Alkaline Phosphatase 73 Aspartate Amino Transf (AST/SGOT) 14 Alanine Aminotransferase (ALT/SGPT) 25 Total Bilirubin 0.8 Sodium Level 140 Potassium Level 3.7 Chloride Level 108 Carbon Dioxide Level 23.5 Anion Gap 9 Estimat Glomerular Filtration Rate 69 Total Creatine Kinase 114 88 89 Creatine Kinase MB 2.3 Troponin I LESS THAN 0.02 0.02 0.02 Result Diagram: 08/26/17185808/26/171858 Imaging Last 48 hours Impressions Chest X-Ray 08/26/171847 Signed Impressions: Service Date/Time: Saturday, August 26, 2017 19:10 - CONCLUSION: No acute disease. No significant change has occurred. Oren Caldwell MD Course EKGs are sinus rhythm with nonspecific lateral T-wave changes. Caprini VTE Risk Assessment Caprini VTE Risk Assessment: No/Low Risk (score <= 1) Caprini Risk Assessment Model Point Value = 1 Point Value = 2 Point Value = 3 Point Value = 5 Age 41-60 Minor surgery BMI > 25 kg/m2 Swollen legs Varicose veins or History of unexplained or recurrent spontaneous Oral contraceptives or hormone replacement Sepsis (< 1 month) Serious lung disease, including pneumonia (< 1 month) Abnormal pulmonary function Acute myocardial infarction Congestive heart failure (< 1 month) History of inflammatory bowel disease Medical patient at bed rest Age 61-74 Arthroscopic surgery Major open surgery (> 45 min) Laparoscopic surgery (> 45 min) Malignancy Confined to bed (> 72 hours) Immobilizing plaster cast Central venous access Age >= 75 History of VTE Family history of VTE Factor V Leiden Prothrombin [id number] Lupus anticoagulant Anticardiolipin antibodies Elevated serum homocysteine Heparin-induced thrombocytopenia Other congenital or acquired thrombophilia Stroke (< 1 month) Elective arthroplasty Hip, pelvis, or leg fracture Acute spinal cord injury (< 1 month) Prophylaxis Regimen Total Risk Factor Score Risk Level Prophylaxis Regimen 0-1 Low Early ambulation 2 Moderate Order ONE of the following: *Sequential Compression Device (SCD) *Heparin 5000 units SQ BID 3-4 Higher Order ONE of the following medications: *Heparin 5000 units SQ TID *Enoxaparin/Lovenox 40 mg SQ daily (WT < 150 kg, CrCl > 30 mL/min) *Enoxaparin/Lovenox 30 mg SQ daily (WT < 150 kg, CrCl > 10-29 mL/min) *Enoxaparin/Lovenox 30 mg SQ BID (WT < 150 kg, CrCl > 30 mL/min) AND/OR *Sequential Compression Device (SCD) 5 or more Highest Order ONE of the following medications: *Heparin 5000 units SQ TID (Preferred with Epidurals) *Enoxaparin/Lovenox 40 mg SQ daily (WT < 150 kg, CrCl > 30 mL/min) *Enoxaparin/Lovenox 30 mg SQ daily (WT < 150 kg, CrCl > 10-29 mL/min) *Enoxaparin/Lovenox 30 mg SQ BID (WT < 150 kg, CrCl > 30 mL/min) AND *Sequential Compression Device (SCD) Assessment and Plan Assessment and Plan * Chest pain: Patient has had serial cardiac enzymes and EKGs for ruling out purposes. Further plan will be decided after being evaluated by Dr. Jordan of cardiology in the chest pain center. He will need to follow-up with his dental director on an outpatient basis. * Hypertension: Continue current medication. * Hyperlipidemia: Continue current medication. * Tobacco abuse: Patient has been counseled on importance of smoking cessation. Patient is stable at this time. He is agreeable to this plan. Keven Cerda Aug 27, 2017 09:59
[2017-08-27] MEDS ORDERED: ALPRAZolam 1 MG TAB PO SCH (10:00)
[2017-08-27] MEDS ORDERED: RESP: ALBUTEROL 2.5 MG/IPRATROPIUM 0.5 MG NEB (PRN) INH (10:00)
[2017-08-27] MEDS ORDERED: RESP: ALBUTEROL 2.5 MG/IPRATROPIUM 0.5 MG NEB (SCH) INH ONE (10:00)
[2017-08-27 10:32] VITALS: O2SAT 98
[2017-08-27] MEDS ORDERED: ISOSORBIDE MONONITRATE 60 MG TAB PO SCH (11:00)
[2017-08-27] MEDS ORDERED: POTASSIUM CHLORIDE 20 MEQ CONTROLLED RELEASE TAB PO SCH (11:00)
[2017-08-27] MEDS ORDERED: PANTOPRAZOLE SOD 40 MG DELAYED RELEASE TAB PO SCH (11:00)
[2017-08-27] MEDS ORDERED: ATORVASTATIN 80 MG TAB PO SCH (11:00)
[2017-08-27 12:00] VITALS: BP 101/58; PULSE 74; RESP 20; TEMP 98.2; O2SAT 97
[2017-08-27] MEDS ORDERED: GABA600T PO ×2 (14:09)
--- NOTE | 2017-08-27 18:10 | EKG ---
Date Performed: 08/27/2017 Time Performed: 01:22:18 PTAGE: 62 years EKG: Sinus rhythm NONSPECIFIC T-WAVE ABNORMALITY BORDERLINE ECG PREVIOUS TRACING : 08/27/2017 01.21 Since previous tracing, no significant change noted DOCTOR: Arnaud Jordan Interpretating Date/Time 08/27/2017 18:09:56
--- NOTE | 2017-08-27 18:15 | EKG ---
Date Performed: 08/26/2017 Time Performed: 22:30:52 PTAGE: 62 years EKG: Sinus rhythm NONSPECIFIC T-WAVE ABNORMALITY BORDERLINE ECG PREVIOUS TRACING : 08/26/2017 18.24 Since previous tracing, no significant change noted DOCTOR: Arnaud Jordan Interpretating Date/Time 08/27/2017 18:14:51
--- NOTE | 2017-08-27 18:23 | EKG ---
Date Performed: 08/26/2017 Time Performed: 18:24:36 PTAGE: 62 years EKG: Sinus rhythm POSSIBLE LEFT ATRIAL ENLARGEMENT NONSPECIFIC T-WAVE ABNORMALITY BORDERLINE ECG PREVIOUS TRACING : 03/25/2017 23.16 Since previous tracing, no significant change noted DOCTOR: Arnaud Jordan Interpretating Date/Time 08/27/2017 18:21:25
== END 2017-08-27 14:50 | disposition home or self-care (01) ==
LOC: NEPE 17:45 → NEDA 20:08 → NEPGCP 21:48
PROVIDERS: ADMIT Internal Medicine Interventional Cardiology; ATTEND Internal Medicine Interventional Cardiology
DX: Z79.01 Long term (current) use of anticoagulants (principal); M19.90 Unspecified osteoarthritis, unspecified site; F41.9 Anxiety disorder, unspecified; F32.9 Major depressive disorder, single episode, unspecified; E78.00 Pure hypercholesterolemia, unspecified; J44.9 Chronic obstructive pulmonary disease, unspecified; I25.10 Atherosclerotic heart disease of native coronary artery without angina pectoris; K21.9 Gastro-esophageal reflux disease without esophagitis; K44.9 Diaphragmatic hernia without obstruction or gangrene; I10 Essential (primary) hypertension; I21.9 Acute myocardial infarction, unspecified; Z95.1 Presence of aortocoronary bypass graft; F17.210 Nicotine dependence, cigarettes, uncomplicated; Z79.899 Other long term (current) drug therapy; I25.5 Ischemic cardiomyopathy; R61 Generalized hyperhidrosis; R11.0 Nausea; F12.90 Cannabis use, unspecified, uncomplicated; R94.31 Abnormal electrocardiogram [ECG] [EKG]
CPT/HCPCS: 71010; 80053; 82550; 82552; 83735; 84484; 85025; 85610; 85730; 93005; 94664; 96361; 96374; 96375; 96376; 99285; G0378; J1170; J2270; J2405; J7040

== ENCOUNTER 2017-08-27 13:31 | Observation (INO) | payer MEDICAID ==
[2017-08-27] VITALS (13 sets, daily range): BP systolic 95–164; BP diastolic 55–87; PULSE 66–92; RESP 13–24; TEMP 98–98.5; O2SAT 97–100
[~2017-08-27] VITALS: Ht 167.6 cm; Wt 75.0 kg
[~2017-08-27 13:31] MED LIST changes: +POTA-163 PO
[2017-08-27] MEDS ORDERED: GABA600T PO ×2 (14:09)
--- NOTE | 2017-08-27 14:10 | HHI.DCPOC ---
Discharge Care Plan Diagnosis: (1) Chest pain (2) CAD (coronary artery disease) (3) Hx of CABG (4) H/O heart artery stent (5) Hypertension (6) Hyperlipidemia (7) Left against medical advice Goals to Promote Your Health * To prevent worsening of your condition and complications * To maintain your health at the optimal level Directions to Meet Your Goals Take your medications as prescribed Follow your dietary instruction Follow activity as directed Keep your appointments as scheduled Take your immunizations and boosters as scheduled If your symptoms worsen call your PCP, if no PCP go to Urgent Care Center or Emergency Room Smoking is Dangerous to Your Health. Avoid second hand smoke Call the 24-hour hour crisis hotline for domestic abuse at Keven Cerda Aug 27, 2017 14:10
[2017-08-27] MEDS ORDERED: SODIUM CHLORIDE 0.9% FLUSH 10 ML FLUSH IVF PRN (14:15)
--- NOTE | 2017-08-27 14:15 | PD ---
HPI Chief Complaint: Chest Pain Time Seen by Provider: 14:03 Travel History International Travel<30 days: No Contact w/Intl Traveler<30days: No Traveled to known affect area: No History of Present Illness HPI 62-year-old male patient with extensive cardiac history, syncopal history, was admitted to chest pain center yesterday and left AGAINST MEDICAL ADVICE, returns to the ER today for continued 8 out of 10 left-sided chest pains or radiation to the jaw and down the arm and states that he had a syncopal episode while he was out. He denies any injuries. She denies any other issues. Modifying Factors: None Associated Signs & Symptoms: Chest pains, syncope Risk Factors: Cardiac history, syncope PFSH Past Medical History Hx Anticoagulant Therapy: Yes (He does not know the name of the medication) Arthritis: Yes Asthma: No Blood Disorders: No Anxiety: Yes Depression: Yes Heart Rhythm Problems: Yes Cancer: No Cardiac Catheterization: Yes Cardiovascular Problems: Yes High Cholesterol: Yes Chemotherapy: No Chest Pain: Yes Congestive Heart Failure: No COPD: Yes Coronary Artery Disease: Yes Diabetes: No Diminished Hearing: No Endocrine: No Gastrointestinal Disorders: Yes GERD: Yes Genitourinary: No Hiatal Hernia: Yes Hypertension: Yes Implanted Vascular Access Dvce: Yes Kidney Stones: Yes Musculoskeletal: No Neurologic: Yes (multiple episodes of syncope, EVAL BY NEURO WHO STATES "CARDIAC") Psychiatric: Yes Reproductive: No Respiratory: Yes Immunizations Current: Yes Migraines: Yes Myocardial Infarction: Yes Radiation Therapy: No Sleep Apnea: No Thyroid Disease: No Past Surgical History Body Medical Devices: STENTS Cardiac Surgery: Yes Coronary Artery Bypass Graft: Yes (DOUBLE BYPASS) Coronary Stent: Yes (X 7) Thoracic Surgery: Yes (HX of CABG x 2) Other Surgery: Yes (CABG, STENTING) Family History Family Myocardial Infarction: Yes Social History Alcohol Use: No Tobacco Use: Yes Substance Use: Yes (MARIJUANA) Allergies-Medications (Allergen,Severity, Reaction): Coded Allergies: ketorolac (Verified Allergy, Severe, RASH, 08/27/17) penicillin G (Verified Allergy, Unknown, Anaphylaxis, 08/27/17) Reported Meds & Prescriptions Reported Meds & Active Scripts Active Oxycodone (Oxycodone HCl) 10 Mg Tab 30 Mg PO Q6H PRN Xanax (Alprazolam) 1 Mg Tab 1 Mg PO BID Protonix (Pantoprazole Sodium) 40 Mg Tab 40 Mg PO DAILY Isosorbide Mononitrate ER (Isosorbide Mononitrate) 60 Mg Tab 60 Mg PO BID 30 Days Effient (Prasugrel) 10 Mg Tab 10 Mg PO DAILY Lipitor (Atorvastatin Calcium) 80 Mg Tab 80 Mg PO DAILY Aspirin 81 Mg Chew 81 Mg CHEW DAILY Fluticasone Nasal [place] 50 Mcg/Act Naspr 1 [place] NASAL BID Ventolin Hfa 18 GM Inh (Albuterol Sulfate) 90 Mcg/Act Aer 2 Puff INH Q4-6H PRN Nitroglycerin SL (Nitroglycerin) 0.3 Mg Subl 0.3 Mg SL DIRECTED PRN ONE TABLET UNDER THE TONGUE NEEDED FOR CHEST PAIN, MAY REPEAT EVERY FIVE MINUTES FOR A TOTAL OF 3 DOSES OR CALL 911 IF NO RELIEF. Reported Gabapentin 600 Mg Tab 600 Mg PO BID Potassium Chloride ER (Potassium Chloride) 20 Meq Tab 20 Meq PO DAILY Review of Systems Except as stated in HPI: all other systems reviewed are Neg Physical Exam Narrative GENERAL: Well-developed elderly palpation currently in mom distress. Awake and oriented 3. SKIN: Focused skin assessment warm/dry. HEAD: Atraumatic. Normocephalic. EYES: Pupils equal and round. No scleral icterus. No injection or drainage. ENT: No nasal bleeding or discharge. Mucous membranes pink and moist. NECK: Trachea midline. No JVD. CARDIOVASCULAR: Regular rate and rhythm. No murmur appreciated. Pulses are present and equal bilaterally. RESPIRATORY: No accessory muscle use. Clear to auscultation. Breath sounds equal bilaterally. GASTROINTESTINAL: Abdomen soft, non-tender, nondistended. Hepatic and splenic margins not palpable. MUSCULOSKELETAL: No obvious deformities. No clubbing. No cyanosis. No edema. NEUROLOGICAL: Awake and alert. No obvious cranial nerve deficits. Motor grossly within normal limits. Normal speech. PSYCHIATRIC: Appropriate mood and affect; insight and judgment normal. Data Data Last Documented VS Vital Signs Date Time Temp Pulse Resp B/P (MAP) Pulse Ox O2 Delivery O2 Flow Rate FiO2 08/27/17 16:17 77 24 145/84 (104) 100 Nasal Cannula 2.00 08/27/17 13:33 98.5 Orders Orders [place] Discharge (08/27/17 ) Electrocardiogram (08/27/17 14:07) B-Type Natriuretic Peptide (08/27/17 14:07) Ckmb (Isoenzyme) Profile (08/27/17 14:07) Complete Blood Count With Diff (08/27/17 14:07) Comprehensive Metabolic Panel (08/27/17 14:07) Magnesium (Mg) (08/27/17 14:07) Prothrombin Time / Inr (Pt) (08/27/17 14:07) Act Partial Throm Time (Ptt) (08/27/17 14:07) Troponin I (08/27/17 14:07) Chest, Single Ap (08/27/17 14:07) Ecg Monitoring (08/27/17 14:07) Bilateral Bp Monitoring (08/27/17 14:07) Iv Access Insert/Monitor (08/27/17 14:07) Oximetry (08/27/17 14:07) Oxygen Administration (08/27/17 14:07) Sodium Chloride 0.9% Flush (Ns Flush) (08/27/17 14:15) CKMB (08/27/17 14:30) CKMB% (08/27/17 14:30) Aspirin (Aspirin) (08/27/17 16:45) Nitroglycerin 2% Oint (Nitroglycerin 2% (08/27/17 16:45) Admit Order (Ed Use Only) (08/27/17 16:43) Labs Laboratory Tests Test 08/27/17 14:30 White Blood Count 9.6 TH/MM3 Red Blood Count 5.22 MIL/MM3 Hemoglobin 15.0 GM/DL Hematocrit 44.1 % Mean Corpuscular Volume 84.5 FL Mean Corpuscular Hemoglobin 28.8 PG Mean Corpuscular Hemoglobin Concent 34.1 % Red Cell Distribution Width 18.2 % Platelet Count 241 TH/MM3 Mean Platelet Volume 8.2 FL Neutrophils (%) (Auto) 72.9 % Lymphocytes (%) (Auto) 19.6 % Monocytes (%) (Auto) 5.9 % Eosinophils (%) (Auto) 1.0 % Basophils (%) (Auto) 0.6 % Neutrophils # (Auto) 7.0 TH/MM3 Lymphocytes # (Auto) 1.9 TH/MM3 Monocytes # (Auto) 0.6 TH/MM3 Eosinophils # (Auto) 0.1 TH/MM3 Basophils # (Auto) 0.1 TH/MM3 CBC Comment DIFF FINAL Differential Comment Prothrombin Time 10.7 SEC Prothromb Time International Ratio 1.0 RATIO Activated Partial Thromboplast Time 28.0 SEC Blood Urea Nitrogen 12 MG/DL Creatinine 0.75 MG/DL Random Glucose 94 MG/DL Total Protein 7.0 GM/DL Albumin 3.8 GM/DL Calcium Level 8.9 MG/DL Magnesium Level 2.1 MG/DL Alkaline Phosphatase 66 U/L Aspartate Amino Transf (AST/SGOT) 15 U/L Alanine Aminotransferase (ALT/SGPT) 21 U/L Total Bilirubin 0.9 MG/DL Sodium Level 140 MEQ/L Potassium Level 4.2 MEQ/L Chloride Level 108 MEQ/L Carbon Dioxide Level 25.4 MEQ/L Anion Gap 7 MEQ/L Estimat Glomerular Filtration Rate 106 ML/MIN Total Creatine Kinase 113 U/L Creatine Kinase MB 2.8 NG/ML Troponin I LESS THAN 0.02 NG/ML B-Type Natriuretic Peptide 79 PG/ML MDM Medical Decision Making Medical Screen Exam Complete: Yes Emergency Medical Condition: Yes Medical Record Reviewed: Yes Interpretation(s) EKG shows NSR, no ST elevation or depression, and no arrhythmias. No significant T-wave inversions. Laboratory Tests Test 08/27/17 14:30 Red Cell Distribution Width 18.2 % (11.6-17.2) Neutrophils (%) (Auto) 72.9 % (16.0-70.0) Chloride Level 108 MEQ/L (98-107) Troponin I LESS THAN 0.02 NG/ML Last 24 hours Impressions Chest X-Ray 08/27/17 1407 Signed Impressions: Service Date/Time: Sunday, August 27, 2017 14:50 - CONCLUSION: No acute disease. COPD Aamir Vu MD Differential Diagnosis Chest pains, syncope: Dysrhythmias versus ACS versus orthostasis versus metabolic issues Narrative Course Chest x-ray, EKG, lab work was unremarkable. Vital signs are stable in the ER. At this point, considering the syncope, my plan would be to admit him for syncope and chest pain. He has been given aspirin and nitroglycerin in the ER. Case was discussed with Dr. Shafer for admission. Diagnosis Primary Impression: Syncope Additional Impression: Chest pain Admitting Information Admitting Physician Requests: Admit Sangeeta Sanderson MD Aug 27, 2017 14:15
[2017-08-27 14:49] LABS: BASOPHIL # 0.1 TH/MM3 (0-0.2); BASOPHIL % 0.6 % (0.0-2.0); EOSINOPHIL # 0.1 TH/MM3 (0-0.4); HEMATOCRIT 44.1 % (39.0-51.0); HEMO FLAGS DIFF FINAL; LYMPH % 19.6 % (9.0-44.0); LYMPHOCYTE # 1.9 TH/MM3 (1.0-4.8); MEAN CELL VOLUME 84.5 FL (80.0-100.0); MEAN CORPUSCULAR HEMOGLOBIN 28.8 PG (27.0-34.0); MEAN CORPUSCULAR HGB CONC 34.1 % (32.0-36.0); MONO % 5.9 % (0.0-8.0); NEUT % 72.9 % (16.0-70.0); PLATELET COUNT 241 TH/MM3 (150-450); RED BLOOD COUNT 5.22 MIL/MM3 (4.50-5.90); RED CELL DISTRIBUTION WIDTH 18.2 % (11.6-17.2); WHITE BLOOD COUNT 9.6 TH/MM3 (4.0-11.0)
[2017-08-27 14:57] LABS: PROTHROMBIN TIME - PATIENT 10.7 SEC (9.8-11.6)
--- NOTE | 2017-08-27 15:05 | RADRPT ---
EXAM DATE/TIME: 08/27/2017 14:50 [facility] COMPARISON: CHEST SINGLE AP, August 26, 2017, 19:10. INDICATIONS : Chest pain, short of breath. MEDICAL HISTORY : Chronic obstructive pulmonary disease. Congestive heart failure. Myocardial infarction. SURGICAL HISTORY : Coronary artery stent. CABG. ENCOUNTER: Initial ACUITY: 1 day PAIN SCORE: 9/10 LOCATION: Bilateral chest FINDINGS: Lungs are hyperinflated. There is no evidence of acute air space disease, congestion or pleural effus ion. Median sternotomy wires from previous open-heart surgery noted. Osseous structures are intact. CONCLUSION: No acute disease. COPD Aamir Vu MD on August 27, 2017 at 15:01 Board Certified Radiologist. This report was verified electronically.
[2017-08-27 16:20] LABS: ALKALINE PHOSPHATASE 66 U/L (45-117); ALT (GPT) 21 U/L (12-78); ANION GAP 7 MEQ/L (5-15); AST (GOT) 15 U/L (15-37); BICARBONATE 25.4 MEQ/L (21.0-32.0); BLOOD UREA NITROGEN 12 MG/DL (7-18); CHLORIDE 108 MEQ/L (98-107); CREATINE KINASE 113 U/L (39-308); GLOMERULAR FILTRATION RATE 106 ML/MIN (>89); MAGNESIUM 2.1 MG/DL (1.5-2.5); POTASSIUM 4.2 MEQ/L (3.5-5.1); SODIUM (NA) 140 MEQ/L (136-145); TOTAL BILIRUBIN ADULT 0.9 MG/DL (0.2-1.0)
[2017-08-27 16:26] LABS: CKMB 2.8 NG/ML (0.5-3.6)
[2017-08-27] MEDS ORDERED: NITROGLYCERIN 2% OINT 1 GM PACKET TOPICAL ONE (16:45)
[2017-08-27] MEDS ORDERED: ASPIRIN 325 MG TAB PO ONE (16:45)
[2017-08-27] MEDS ORDERED: NITROGLYCERIN 0.3 MG SL 100 TABS/BTL SL PRN (17:30)
[2017-08-27] MEDS: ATORVASTATIN 80 MG TAB PO SCH (17:30)
[2017-08-27] MEDS ORDERED: ACETAMINOPHEN 325 MG TAB PO PRN (17:30)
[2017-08-27] MEDS ORDERED: SODIUM CHLORIDE 0.9% FLUSH 10 ML FLUSH IV FLUSH PRN (17:30)
[2017-08-27] MEDS ORDERED: ALBUTEROL SULFATE 90 MCG/ACT HFA 8 GM INHALER INH PRN (17:30)
[2017-08-27] MEDS ORDERED: NALOXONE HCL 0.4 MG/ML AMP IV PUSH PRN (17:30)
[2017-08-27] MEDS ORDERED: ONDANSETRON HCL 4 MG/2 ML VIAL IVP PRN (17:30)
[2017-08-27] MEDS: PANTOPRAZOLE SOD 40 MG DELAYED RELEASE TAB PO SCH (18:24)
[2017-08-27] MEDS: SODIUM CHLOR 0.9% 1000 ML INJ 1,000 ML IV SCH ×2 (18:24→23:53)
[2017-08-27] MEDS: FLUTICASONE PROPIONATE 50 MCG/ACT 16 GM NASAL SPRAY NASAL SCH (21:00)
[2017-08-27] MEDS: SODIUM CHLORIDE 0.9% FLUSH 10 ML FLUSH IV FLUSH SCH (21:00)
[2017-08-27] MEDS: ALPRAZolam 1 MG TAB PO SCH (21:24)
[2017-08-27] MEDS: GABAPENTIN 300 MG CAP PO SCH (21:24)
[2017-08-27] MEDS: ISOSORBIDE MONONITRATE 60 MG TAB PO SCH (21:24)
[2017-08-27] MEDS: HEPARIN SODIUM - SQ 10,000 UNITS/ML VIAL SQ SCH (21:25)
[2017-08-28 00:03] VITALS: BP_SYST 107; BP_SYST 129; BP_SYST 135; BP_DIAS 65; BP_DIAS 66; BP_DIAS 74
[2017-08-28 04:04] VITALS: BP_SYST 109; BP_SYST 111; BP_DIAS 61; BP_DIAS 63; BP_DIAS 65; PULSE 71; RESP 17; TEMP 98.2; O2SAT 96
[2017-08-28] MEDS: HEPARIN SODIUM - SQ 10,000 UNITS/ML VIAL SQ SCH (06:26)
[2017-08-28] MEDS: ISOSORBIDE MONONITRATE 60 MG TAB PO SCH (06:29)
[2017-08-28 08:45] VITALS: BP_SYST 104; BP_SYST 117; BP_DIAS 58; BP_DIAS 62; BP_DIAS 66; PULSE 75; RESP 18; TEMP 98; O2SAT 96
[2017-08-28] MEDS: ATORVASTATIN 80 MG TAB PO SCH (08:55)
[2017-08-28] MEDS: FLUTICASONE PROPIONATE 50 MCG/ACT 16 GM NASAL SPRAY NASAL SCH (08:55)
[2017-08-28] MEDS: GABAPENTIN 300 MG CAP PO SCH (08:55)
[2017-08-28] MEDS: PANTOPRAZOLE SOD 40 MG DELAYED RELEASE TAB PO SCH (08:55)
[2017-08-28] MEDS: SODIUM CHLORIDE 0.9% FLUSH 10 ML FLUSH IV FLUSH SCH (08:55)
[2017-08-28] MEDS: ALPRAZolam 1 MG TAB PO SCH (08:55)
[2017-08-28] MEDS ORDERED: POTASSIUM CHLORIDE 20 MEQ CONTROLLED RELEASE TAB PO SCH (09:00)
[2017-08-28] MEDS ORDERED: PRASUGREL 10 MG TAB PO SCH (09:00)
[2017-08-28] MEDS ORDERED: ASPIRIN 81 MG CHEW TAB CHEW SCH (09:00)
--- NOTE | 2017-08-28 10:51 | HHI.HP ---
HPI [facility] Primary [facility] Physician Jaren Talamantes III, MD Admission Diagnosis chest pain/syncope Diagnoses: Chief Complaint: chest pains Travel History International Travel<30 Days: No Contact w/Intl Traveler <30 Da: No Traveled to Known Affected Are: No History of Present Illness Written by Mellissa Asif, acting as scribe for Dr. Hurst on 08/28/17 at 10: 51. 62-year-old male with history of CAD s/p CABG and stents, HTN, HLD, tobacco abuse, presents with recurrent chest pains and syncope. The patient reports over the past few days he just hasn't been feeling well. For 2 days now he has had intermittent left sided chest pressure with radiation down the left arm. He thought it was heartburn so he took some zantac. The pains didn't go away so he then took nitro and aspirin. He then presented to the ER 08/26, admitted to chest pain center, however left AMA. The patient states he was getting upset about the pain and then he passed out and hit his head which prompted him to come back to the ER on 08/27. Troponins have been negative x6 and EKGs have no changes compared to previous. His rug clipper is Dr. Story and he knows he is supposed to follow up with him soon. The patient explains he was staying at [facility] however he decided to leave there because he doesn't want to be in a mental institute. He says he moves around in [place], does not have a permanent residence, but he stays with a friend here in [facility]. Review of Systems Except as stated in HPI: all other systems reviewed are Neg Past Family Social History Past Medical History CAD s/p CABG and stenting Hypertension Hyperlipidemia Recurrent syncope Chronic pain Neuropathy Malingering Noncompliance Past Surgical History CABG Cardiac catheterization with stents Abdominal surgery from [facility] EGD/colonoscopy Reported Medications Oxycodone (Oxycodone HCl) 10 Mg Tab 30 Mg PO Q6H PRN Xanax (Alprazolam) 1 Mg Tab 1 Mg PO BID Protonix (Pantoprazole Sodium) 40 Mg Tab 40 Mg PO DAILY Isosorbide Mononitrate ER (Isosorbide Mononitrate) 60 Mg Tab 60 Mg PO BID 30 Days Effient (Prasugrel) 10 Mg Tab 10 Mg PO DAILY Lipitor (Atorvastatin Calcium) 80 Mg Tab 80 Mg PO DAILY Aspirin 81 Mg Chew 81 Mg CHEW DAILY Fluticasone Nasal [place] 50 Mcg/Act Naspr 1 [place] NASAL BID Ventolin Hfa 18 GM Inh (Albuterol Sulfate) 90 Mcg/Act Aer 2 Puff INH Q4-6H PRN Nitroglycerin SL (Nitroglycerin) 0.3 Mg Subl 0.3 Mg SL DIRECTED PRN ONE TABLET UNDER THE TONGUE NEEDED FOR CHEST PAIN, MAY REPEAT EVERY FIVE MINUTES FOR A TOTAL OF 3 DOSES OR CALL 911 IF NO RELIEF. Gabapentin 600 Mg Tab 600 Mg PO BID Potassium Chloride ER (Potassium Chloride) 20 Meq Tab 20 Meq PO DAILY Allergies: Coded Allergies: ketorolac (Verified Allergy, Severe, RASH, 08/27/17) penicillin G (Verified Allergy, Unknown, Anaphylaxis, 08/27/17) Active Ordered Medications Current Medications Medications (Trade) Dose Ordered Sig/Libby Route Start Time Stop Time Status Last Admin (NS Flush) 2 ml UNSCH PRN IVF 08/27/17 14:15 (Proair Hfa Inh) 2 puff Q4HR PRN INH 08/27/17 17:30 (Xanax) 1 mg BID PO 08/27/17 21:00 08/28/17 08:55 (Aspirin Chew) 81 mg DAILY CHEW 08/28/17 09:00 08/28/17 08:55 (Lipitor) 80 mg DAILY PO 08/27/17 17:30 08/28/17 08:55 (Flonase Philippe Spr) 1 spray BID NASAL 08/27/17 21:00 08/28/17 08:55 (Neurontin) 600 mg BID PO 08/27/17 21:00 08/28/17 08:55 (Imdur) 60 mg DAILY@0700,1900 PO 08/27/17 19:00 08/28/17 06:29 (Nitrostat Sl) 0.3 mg 5 TIMES A DAY PRN SL 08/27/17 17:30 (Protonix) 40 mg DAILY PO 08/27/17 17:30 08/28/17 08:55 (KCl) 20 meq DAILY PO 08/28/17 09:00 08/28/17 08:55 (Effient) 10 mg DAILY PO 08/28/17 09:00 08/28/17 08:54 Sodium Chloride 1,000 ml @ 50 mls/hr Q20H IV 08/27/17 17:30 08/27/17 23:53 (NS Flush) 2 ml UNSCH PRN IV FLUSH 08/27/17 17:30 (NS Flush) 2 ml BID IV FLUSH 08/27/17 21:00 08/27/17 21:00 (Tylenol) 650 mg Q4H PRN PO 08/27/17 17:30 (Zofran Inj) 4 mg Q6H PRN IVP 08/27/17 17:30 08/27/17 17:43 (Heparin Inj) 5,000 units Q8HR SQ 08/27/17 22:00 08/28/17 06:26 (Narcan Inj) 0.4 mg UNSCH PRN IV PUSH 08/27/17 17:30 Family History Father from [place] at age 42 Mother from [place] at age 92 Social History Smokes tobacco, 5 cigarettes daily Denies alcohol use Smokes marijuana regularly Admits to prior cocaine use 1 year ago, none recently Denies any other illicit drug use Physical Exam Vital Signs Vital Signs Date Time Temp Pulse Resp B/P (MAP) Pulse Ox O2 Delivery O2 Flow Rate FiO2 08/28/17 08:45 98.0 75 18 104/66 (79) 96 117/58 (77) 117/62 (80) 08/28/17 04:04 98.2 71 17 111/65 (80) 96 109/61 (77) 111/63 (79) 08/28/17 00:03 107/65 (79) 129/74 (92) 135/66 (89) 08/27/17 23:45 98.4 90 17 95/55 (68) 97 08/27/17 21:00 83 08/27/17 20:16 98.0 75 18 115/85 (95) 97 08/27/17 19:00 08/27/17 19:00 76 138/69 (92) 08/27/17 18:29 84 22 146/83 (104) 100 Room Air 08/27/17 17:42 75 22 164/87 (112) 100 Nasal Cannula 2.00 08/27/17 17:00 66 16 131/71 (91) 100 Nasal Cannula 2.00 08/27/17 16:17 77 24 145/84 (104) 100 Nasal Cannula 2.00 08/27/17 15:00 76 18 130/82 (98) 100 Nasal Cannula 2.00 08/27/17 14:11 83 13 130/85 (100) 99 Room Air 142/84 (103) 08/27/17 14:10 Nasal Cannula 2.00 08/27/17 14:10 99 Room Air 08/27/17 14:04 83 13 130/85 (100) 99 Room Air 08/27/17 13:33 98.5 92 20 130/83 (99) 100 Room Air Physical Exam GENERAL: Well-nourished, well-developed middle aged male patient in [facility]. SKIN: Warm and dry. No rash. HEAD: Normocephalic. Atraumatic. No abrasions/ecchymosis. EYES: Pupils equal and round. No scleral icterus. No injection or drainage. ENT: No nasal bleeding or discharge. Mucous membranes pink and moist. NECK: Supple. Trachea midline. CARDIOVASCULAR: Regular rate and rhythm. S1, S2 noted. No murmur appreciated. RESPIRATORY: No accessory muscle use. Clear to auscultation. Breath sounds equal bilaterally. GASTROINTESTINAL: Abdomen soft, non-tender, nondistended. Normoactive bowel sounds x4. MUSCULOSKELETAL: No obvious deformities. Extremities without clubbing, cyanosis , or edema. NEUROLOGICAL: Awake and alert. No obvious cranial nerve deficits. Motor grossly within normal limits. Moves all extremities spontaneously. Normal speech. PSYCHIATRIC: Appropriate mood and affect; insight and judgment normal. Laboratory Laboratory Tests Test 08/27/17 14:30 08/27/17 17:48 08/27/17 23:22 White Blood Count 9.6 Red Blood Count 5.22 Hemoglobin 15.0 Hematocrit 44.1 Mean Corpuscular Volume 84.5 Mean Corpuscular Hemoglobin 28.8 Mean Corpuscular Hemoglobin Concent 34.1 Red Cell Distribution Width 18.2 Platelet Count 241 Mean Platelet Volume 8.2 Neutrophils (%) (Auto) 72.9 Lymphocytes (%) (Auto) 19.6 Monocytes (%) (Auto) 5.9 Eosinophils (%) (Auto) 1.0 Basophils (%) (Auto) 0.6 Neutrophils # (Auto) 7.0 Lymphocytes # (Auto) 1.9 Monocytes # (Auto) 0.6 Eosinophils # (Auto) 0.1 Basophils # (Auto) 0.1 CBC Comment DIFF FINAL Differential Comment Prothrombin Time 10.7 Prothromb Time International Ratio 1.0 Activated Partial Thromboplast Time 28.0 Blood Urea Nitrogen 12 Creatinine 0.75 Random Glucose 94 Total Protein 7.0 Albumin 3.8 Calcium Level 8.9 Magnesium Level 2.1 Alkaline Phosphatase 66 Aspartate Amino Transf (AST/SGOT) 15 Alanine Aminotransferase (ALT/SGPT) 21 Total Bilirubin 0.9 Sodium Level 140 Potassium Level 4.2 Chloride Level 108 Carbon Dioxide Level 25.4 Anion Gap 7 Estimat Glomerular Filtration Rate 106 Total Creatine Kinase 113 Creatine Kinase MB 2.8 Troponin I LESS THAN 0.02 LESS THAN 0.02 LESS THAN 0.02 B-Type Natriuretic Peptide 79 Result Diagram: 08/27/17 1430 08/27/17 1430 Imaging Last Impressions Chest X-Ray 08/27/17 1407 Signed Impressions: Service Date/Time: Sunday, August 27, 2017 14:50 - CONCLUSION: No acute disease. COPD Aamir Vu MD [place] VTE Risk Assessment Caprini VTE Risk Assessment: Mod/High Risk (score >= 2) Caprini Risk Assessment Model Point Value = 1 Point Value = 2 Point Value = 3 Point Value = 5 Age 41-60 Minor surgery BMI > 25 kg/m2 Swollen legs Varicose veins or History of unexplained or recurrent spontaneous Oral contraceptives or hormone replacement Sepsis (< 1 month) Serious lung disease, including pneumonia (< 1 month) Abnormal pulmonary function Acute myocardial infarction Congestive heart failure (< 1 month) History of inflammatory bowel disease Medical patient at bed rest Age 61-74 Arthroscopic surgery Major open surgery (> 45 min) Laparoscopic surgery (> 45 min) Malignancy Confined to bed (> 72 hours) Immobilizing plaster cast Central venous access Age >= 75 History of VTE Family history of VTE Factor V Leiden Prothrombin [id number] Lupus anticoagulant Anticardiolipin antibodies Elevated serum homocysteine Heparin-induced thrombocytopenia Other congenital or acquired thrombophilia Stroke (< 1 month) Elective arthroplasty Hip, pelvis, or leg fracture Acute spinal cord injury (< 1 month) Prophylaxis Regimen Total Risk Factor Score Risk Level Prophylaxis Regimen 0-1 Low Early ambulation 2 Moderate Order ONE of the following: *Sequential Compression Device (SCD) *Heparin 5000 units SQ BID 3-4 Higher Order ONE of the following medications: *Heparin 5000 units SQ TID *Enoxaparin/Lovenox 40 mg SQ daily (WT < 150 kg, CrCl > 30 mL/min) *Enoxaparin/Lovenox 30 mg SQ daily (WT < 150 kg, CrCl > 10-29 mL/min) *Enoxaparin/Lovenox 30 mg SQ BID (WT < 150 kg, CrCl > 30 mL/min) AND/OR *Sequential Compression Device (SCD) 5 or more Highest Order ONE of the following medications: *Heparin 5000 units SQ TID (Preferred with Epidurals) *Enoxaparin/Lovenox 40 mg SQ daily (WT < 150 kg, CrCl > 30 mL/min) *Enoxaparin/Lovenox 30 mg SQ daily (WT < 150 kg, CrCl > 10-29 mL/min) *Enoxaparin/Lovenox 30 mg SQ BID (WT < 150 kg, CrCl > 30 mL/min) AND *Sequential Compression Device (SCD) Assessment and Plan Problem List: (1) Chest pain ICD Code: R07.9 - Chest pain, unspecified (2) Syncope ICD Code: R55 - Syncope and collapse Status: Acute Assessment and Plan 62-year-old male with history of CAD s/p CABG and stents, HTN, HLD, tobacco abuse, presents with recurrent chest pains and syncope. Chest Pain: with history of CAD. Patient has now had 6 serial cardiac enzymes that were all negative. EKG reviewed, no acute ischemic changes when compared to previous. CXR images reviewed, no acute findings. -Continue aspirin, statin, imdur, Effient -Unable to tolerate YOBANY/BB with hypotension and recurrent syncope -Recommend outpatient f/up with rug clipper Dr. Story -chest pains resolved Syncope: patient has had multiple admissions and work up for this including Holter Monitor, Echocardiogram, EEGs. Possibly secondary to hypotension from dehydration. -Given IVF, BP improved -monitor on telemetry, no acute findings -recommends outpatient f/up with rug clipper Dr. Story to consider event monitor/loop recorder Malingering/Homelessness: patient has a long history of multiple presentations for chest pain and syncope. Has been evaluated by psychiatry in the past who agree patient is malingering. Currently the patient left his HALF-WAY at [facility]. He claims he does have a friend he can stay with. -consult case management to assist with discharge planning. -avoid narcotics during hospitalization Tobacco Abuse: chronic, although extensively counseled on previous admission, patient continues to smoke -counseled on cessation again DVT Prophylaxis: heparin sq Discussed Condition With Patient Discharge Planning Discharge patient to home Condition on discharge: Improved Heart Healthy Diet as tolerated Ad Jimena activity Rx written: no new meds Follow-up with primary care physician and rug clipper Dr. Story Attending Statement This note was transcribed by jenni [Mellissa Asif]. I, Dr. Oscar Hurst personally performed the history, physical exam, and medical decision making; and confirmed the accuracy of the information in the transcribed note. Authenticated by Dr. Oscar Hurst on 08/28/17 at 17:05. Mellissa Asif PA-C Aug 28, 2017 10:51 Oscar Hurst MD Aug 28, 2017 17:05
[2017-08-28 12:15] VITALS: BP 110/68; PULSE 73; RESP 18; TEMP 97.4; O2SAT 98
[2017-08-28 12:31] LABS: BICARBONATE 27.4 MEQ/L (21.0-32.0); POTASSIUM 3.8 MEQ/L (3.5-5.1)
[2017-08-28 12:40] LABS: AUTOMATED NEUTROPHIL # 5.8 TH/MM3 (1.8-7.7); BASOPHIL # 0.1 TH/MM3 (0-0.2); BASOPHIL % 0.7 % (0.0-2.0); EOSINOPHIL # 0.3 TH/MM3 (0-0.4); HEMATOCRIT 42.2 % (39.0-51.0); HEMO FLAGS AUTO DIFF; LYMPH % 32.3 % (9.0-44.0); LYMPHOCYTE # 3.3 TH/MM3 (1.0-4.8); MEAN CELL VOLUME 85.2 FL (80.0-100.0); MEAN CORPUSCULAR HEMOGLOBIN 28.9 PG (27.0-34.0); MEAN CORPUSCULAR HGB CONC 33.9 % (32.0-36.0); MONO % 6.2 % (0.0-8.0); NEUT % 57.8 % (16.0-70.0); PLATELET COUNT 180 TH/MM3 (150-450); RED BLOOD COUNT 4.95 MIL/MM3 (4.50-5.90); RED CELL DISTRIBUTION WIDTH 17.6 % (11.6-17.2); WHITE BLOOD COUNT 10.1 TH/MM3 (4.0-11.0)
[2017-08-28 12:56] LABS: PLATELET ESTIMATE SMEAR NORMAL (NORMAL); PLATELET MORPHOLOGY ENLARGED (NORMAL); SCAN/DIFF AUTO DIFF CONFIRMED
[2017-08-28 13:27] VITALS: RESP 18
--- NOTE | 2017-08-28 14:19 | EKG ---
Date Performed: 08/27/2017 Time Performed: 14:08:55 PTAGE: 62 years EKG: Sinus rhythm NONSPECIFIC T-WAVE ABNORMALITY BORDERLINE ECG PREVIOUS TRACING : 08/27/2017 01.22 DOCTOR: Calvin Ivey Interpretating Date/Time 08/28/2017 14:16:12
== END 2017-08-28 14:02 | disposition home or self-care (01) ==
LOC: NEPC 13:31 → NEDA 16:45 → NEPGCP 19:07
PROVIDERS: ADMIT Internal Medicine; ATTEND Internal Medicine
DX: R07.89 Other chest pain (principal); R55 Syncope and collapse; I25.10 Atherosclerotic heart disease of native coronary artery without angina pectoris; I10 Essential (primary) hypertension; F41.9 Anxiety disorder, unspecified; M19.90 Unspecified osteoarthritis, unspecified site; F32.9 Major depressive disorder, single episode, unspecified; J44.9 Chronic obstructive pulmonary disease, unspecified; E78.00 Pure hypercholesterolemia, unspecified; K21.9 Gastro-esophageal reflux disease without esophagitis; I25.2 Old myocardial infarction; F17.210 Nicotine dependence, cigarettes, uncomplicated; F12.90 Cannabis use, unspecified, uncomplicated; Z59.0 Homelessness; Z79.899 Other long term (current) drug therapy; Z95.5 Presence of coronary angioplasty implant and graft; Z95.1 Presence of aortocoronary bypass graft; Z79.82 Long term (current) use of aspirin; Z76.5 Malingerer [conscious simulation]
CPT/HCPCS: 71010; 80048; 80053; 82550; 82552; 83735; 83880; 84484; 85025; 85610; 85730; 93005; 96361; 96372; 96374; 97162; 99285; G0378; G8987; G8988; J1644; J2405; J7030

== ENCOUNTER 2017-08-29 17:20 | Emergency (ER) | payer MEDICAID ==
[~2017-08-29] VITALS: Ht 167.6 cm; Wt 65.0 kg
[~2017-08-29 17:20] MED LIST changes: +GABA600T PO
[2017-08-29 17:24] VITALS: BP 162/81; PULSE 95; RESP 15; TEMP 98.4; O2SAT 98
--- NOTE | 2017-08-29 17:31 | PD ---
Physical Exam Date Seen by Provider: Aug 29, 2017 Time Seen by Provider: 17:29 Narrative 62-year-old male with extensive cardiac history and recent hospitalizations in the last week. Patient has had complaints of recurrent chest pain and reports 2 episodes of syncope yesterday and one today. He is complaining of an abrasion and contusion to the left lower abdomen and for arms. Today he states chest pain of 6/10. He is unsure if this is cardiac versus from the fall that he took yesterday and today. He denies current headache. Patient is taken directly to a medical bed. Data Data Last Documented VS Vital Signs Date Time Temp Pulse Resp B/P (MAP) Pulse Ox O2 Delivery O2 Flow Rate FiO2 08/29/17 17:24 98.4 95 15 162/81 (108) 98 MDM Medical Record Reviewed: Yes Supervised Visit with ZARI: Yes Ignacio Tubbs Aug 29, 2017 17:31
--- NOTE | 2017-08-29 18:18 | PD ---
HPI Chief Complaint: Syncope/Near-Syncope Time Seen by Provider: 18:17 Travel History International Travel<30 days: No Contact w/Intl Traveler<30days: No Traveled to known affect area: No History of Present Illness HPI 62-year-old male presents to the emergency department for evaluation of chest pain, syncope. Patient has had multiple admissions as well as workups for the same. He actually was discharged yesterday for the chest pain center for the same issue. His electronic prepress technician is Dr. Story. He states he has not followed up with him in the past 3 months. He also has a neurologist, Dr. Tate. Patient has history of CAD, status post CABG and stents, hypertension, H LD, tobacco use. The patient was discharged yesterday from the chest pain center. He had 6 total negative troponins after leaving [facility] the day before. Patient returns with the same complaint. He states he had 2 syncopal episodes since yesterday, once today. He also points of midsternal chest pain that has been unchanged. Patient apparently was at an [facility], but he states that he is no longer live there. When asked where he is living, he states with my "old lady". Patient denies any new complaints. These are chronic complaints. He states he has had them for the past year. PFSH Past Medical History Hx Anticoagulant Therapy: Yes (He does not know the name of the medication) Arthritis: Yes Asthma: No Blood Disorders: No Anxiety: Yes Depression: Yes Heart Rhythm Problems: Yes Cancer: No Cardiac Catheterization: Yes Cardiovascular Problems: Yes High Cholesterol: Yes Chemotherapy: No Chest Pain: Yes Congestive Heart Failure: No COPD: Yes Coronary Artery Disease: Yes Diabetes: No Diminished Hearing: No Endocrine: No Gastrointestinal Disorders: Yes GERD: Yes Genitourinary: No Hiatal Hernia: Yes Hypertension: Yes Immune Disorder: No Implanted Vascular Access Dvce: Yes Kidney Stones: Yes Musculoskeletal: No Neurologic: Yes (multiple episodes of syncope, EVAL BY NEURO WHO STATES "CARDIAC") Psychiatric: Yes Reproductive: No Respiratory: Yes Immunizations Current: Yes Migraines: Yes Myocardial Infarction: Yes Radiation Therapy: No Sleep Apnea: No Thyroid Disease: No Past Surgical History Body Medical Devices: STENTS Cardiac Surgery: Yes (CABG X2, STENTS) Coronary Artery Bypass Graft: Yes (DOUBLE BYPASS) Coronary Stent: Yes (X 7) Thoracic Surgery: Yes (HX of CABG x 2) Other Surgery: Yes (CABG, STENTING) Family History Family Myocardial Infarction: Yes Social History Alcohol Use: No Tobacco Use: Yes Substance Use: Yes (MARIJUANA) Allergies-Medications (Allergen,Severity, Reaction): Coded Allergies: ketorolac (Verified Allergy, Severe, RASH, 08/29/17) penicillin G (Verified Allergy, Unknown, Anaphylaxis, 08/29/17) Reported Meds & Prescriptions Reported Meds & Active Scripts Active Oxycodone (Oxycodone HCl) 10 Mg Tab 30 Mg PO Q6H PRN Xanax (Alprazolam) 1 Mg Tab 1 Mg PO BID Protonix (Pantoprazole Sodium) 40 Mg Tab 40 Mg PO DAILY Isosorbide Mononitrate ER (Isosorbide Mononitrate) 60 Mg Tab 60 Mg PO BID 30 Days Effient (Prasugrel) 10 Mg Tab 10 Mg PO DAILY Lipitor (Atorvastatin Calcium) 80 Mg Tab 80 Mg PO DAILY Aspirin 81 Mg Chew 81 Mg CHEW DAILY Fluticasone Nasal [place] 50 Mcg/Act Naspr 1 [place] NASAL BID Ventolin Hfa 18 GM Inh (Albuterol Sulfate) 90 Mcg/Act Aer 2 Puff INH Q4-6H PRN Nitroglycerin SL (Nitroglycerin) 0.3 Mg Subl 0.3 Mg SL DIRECTED PRN ONE TABLET UNDER THE TONGUE NEEDED FOR CHEST PAIN, MAY REPEAT EVERY FIVE MINUTES FOR A TOTAL OF 3 DOSES OR CALL 911 IF NO RELIEF. Reported Gabapentin 600 Mg Tab 600 Mg PO BID Potassium Chloride ER (Potassium Chloride) 20 Meq Tab 20 Meq PO DAILY Review of Systems Except as stated in HPI: all other systems reviewed are Neg Physical Exam Narrative GENERAL: Well-nourished, well-developed male patient, afebrile. SKIN: Focused skin assessment warm/dry. HEAD: Normocephalic. Atraumatic. EYES: No scleral icterus. No injection or drainage. PERRLA. EOM intact. NECK: Supple, trachea midline. No JVD or lymphadenopathy. CARDIOVASCULAR: Regular rate and rhythm without murmurs, gallops, or rubs. RESPIRATORY: Breath sounds equal bilaterally. No accessory muscle use. Lungs sounds are clear to auscultation. GASTROINTESTINAL: Abdomen soft, non-tender, nondistended. MUSCULOSKELETAL: No cyanosis, or edema. Bilateral upper and lower extremity strength 5/5. All extremities are neurovascularly intact. BACK: Nontender without obvious deformity. No CVA tenderness. Data Data Last Documented VS Vital Signs Date Time Temp Pulse Resp B/P (MAP) Pulse Ox O2 Delivery O2 Flow Rate FiO2 08/29/17 18:27 88 16 98 08/29/17 17:41 Nasal Cannula 2.00 08/29/17 17:24 98.4 Orders Orders Ed Discharge Order (08/29/17 18:18) MDM Medical Decision Making Medical Screen Exam Complete: Yes Emergency Medical Condition: Yes Medical Record Reviewed: Yes Differential Diagnosis Chronic chest pain versus chronic syncope versus malingering Narrative Course 62-year-old male presents to the emergency department for evaluation of chest pain and syncope. These have been ongoing for the past year. He was discharged yesterday from the chest pain center for the same. He had 6 negative troponins. I discussed the case with attending physician, Dr. Melendez , who examined the patient as well. Patient has multiple chronic complaints, recent negative workup. Patient is discharged to follow up with neurologist and electronic prepress technician. Diagnosis Primary Impression: Chronic chest pain Additional Impression: Syncope Qualified Codes: R55 - Syncope and collapse Referrals: Medical Attendant call for appointment Patient Instructions: Chest Pain (ED), General Instructions, Syncope (ED) Additional Instructions: Follow-up with electronic prepress technician. Follow-up with your primary care physician. Return to the emergency department for any acute worsening of symptoms. Med/Other Pt SpecificInfo: No Change to Meds Disposition: 01 DISCHARGE HOME Condition: Stable Rachel Seay GISELLE Aug 29, 2017 18:18
--- NOTE | 2017-08-29 18:21 | PD ---
Physical Exam Date Seen by Provider: Aug 29, 2017 Time Seen by Provider: 18:17 Narrative 62-year-old male came to the emergency room with history of syncopal episode. Patient has been here multiple times for syncope and chest pain. He was discharged from the chest pain center yesterday which is one of his many admissions in the past 6 months. He was seen by the pad machine offbearer and discharge. The patient keeps coming either for the chest pain or syncope and today he says that he has been passing out. This has been his previous complaints as well. He was incidentally seen by me in 3-4 months ago. He was seen by the nurse practitioner and I'm supervising her. His EKG was seen by me and looks to be nonspecific. I'm comfortable discharging him home at this point. I went to discuss this with him and he was extremely argumentative and insisted that he needs to stay. He has a follow-up with Dr. Story. He also has a neurologist Dr. Tate. He has a new primary care Dr. Jaren Talamantes who he hasn't seen yet. I'm comfortable discharging him and I have made this very clear to the patient and that he needs to follow up with all his consultants and primary care. Data Data Last Documented VS Orders Orders Ed Discharge Order (08/29/17 18:18) Electrocardiogram (08/29/17 17:53) [facility] Supervised Visit with ZARI: Yes Lei Melendez MD Aug 29, 2017 18:21
--- NOTE | 2017-08-30 22:02 | EKG ---
Date Performed: 08/29/2017 Time Performed: 17:53:37 PTAGE: 62 years EKG: Sinus rhythm NONSPECIFIC T-WAVE ABNORMALITY BORDERLINE ECG NO PREVIOUS TRACING DOCTOR: Luis Sanchez Interpretating Date/Time 08/30/2017 21:32:14
== END 2017-08-29 18:26 | disposition home or self-care (01) ==
LOC: NEPE 17:20
DX: R07.9 Chest pain, unspecified (principal); R55 Syncope and collapse; G89.29 Other chronic pain; Z72.0 Tobacco use
CPT/HCPCS: 93005; 99282

== ENCOUNTER 2017-09-07 17:29 | Observation (INO) | payer MEDICAID ==
[~2017-09-07] VITALS: Ht 167.6 cm; Wt 68.0 kg
[2017-09-07 17:34] VITALS: BP 139/85; PULSE 102; RESP 16; TEMP 98.3; O2SAT 98
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
[2017-09-07] MEDS: NITROGLYCERIN 0.4 MG SL 25 TABS/BTL SL SCH ×3 (18:00→18:10)
[2017-09-07] MEDS ORDERED: ASPIRIN 81 MG CHEW TAB PO ONE (18:00)
[2017-09-07] MEDS ORDERED: SODIUM CHLORIDE 0.9% FLUSH 10 ML FLUSH IVF PRN (18:00)
--- NOTE | 2017-09-07 18:07 | RADRPT ---
EXAM DATE/TIME: 09/07/2017 17:53 [facility] COMPARISON: CHEST SINGLE AP, August 27, 2017, 14:50. INDICATIONS : Chest pain. MEDICAL HISTORY : Chronic obstructive pulmonary disease. Myocardial infarction. Congestive heart failure. SURGICAL HISTORY : CABG. Coronary artery stent. ENCOUNTER: Initial ACUITY: 1 day PAIN SCORE: 8/10 LOCATION: Bilateral chest FINDINGS: A single view of the chest demonstrates the lungs to be symmetrically aerated without evidence of mas s, infiltrate or effusion. The cardiomediastinal contours are unremarkable. Osseous structures are intact status post median sternotomy for bypass grafting procedure. There overlying electrocardiogram leads. CONCLUSION: No acute disease. Billy Bradford MD on September 07, 2017 at 18:05 Board Certified Radiologist. This report was verified electronically.
[2017-09-07 18:08] LABS: APTT (PATIENT) 26.8 SEC (24.3-30.1); INTERNATIONAL NORMALIZED RATIO 0.9 RATIO; PROTHROMBIN TIME - PATIENT 10.3 SEC (9.8-11.6)
[2017-09-07 18:14] LABS: AUTOMATED NEUTROPHIL # 8.3 TH/MM3 (1.8-7.7); BASOPHIL # 0.1 TH/MM3 (0-0.2); BASOPHIL % 0.6 % (0.0-2.0); EOSINOPHIL # 0.1 TH/MM3 (0-0.4); EOSINOPHIL % 1.3 % (0.0-4.0); HEMATOCRIT 42.8 % (39.0-51.0); HEMO FLAGS DIFF FINAL; LYMPH % 17.8 % (9.0-44.0); MEAN CELL VOLUME 88.3 FL (80.0-100.0); MEAN CORPUSCULAR HEMOGLOBIN 30.1 PG (27.0-34.0); MEAN CORPUSCULAR HGB CONC 34.1 % (32.0-36.0); MONO % 6.4 % (0.0-8.0); NEUT % 73.9 % (16.0-70.0); PLATELET COUNT 227 TH/MM3 (150-450); RED BLOOD COUNT 4.85 MIL/MM3 (4.50-5.90); RED CELL DISTRIBUTION WIDTH 16.7 % (11.6-17.2); WHITE BLOOD COUNT 11.3 TH/MM3 (4.0-11.0)
[2017-09-07] MEDS ORDERED: ACETAMINOPHEN 325 MG TAB PO ONE (18:15)
[2017-09-07 18:24] LABS: ANION GAP 6 MEQ/L (5-15); BICARBONATE 21.7 MEQ/L (21.0-32.0); BLOOD UREA NITROGEN 13 MG/DL (7-18); CHLORIDE 109 MEQ/L (98-107); GLOMERULAR FILTRATION RATE 96 ML/MIN (>89); POTASSIUM 4.3 MEQ/L (3.5-5.1); SODIUM (NA) 137 MEQ/L (136-145)
[2017-09-07 18:26] LABS: CREATINE KINASE 105 U/L (39-308)
[2017-09-07] MEDS ORDERED: SODIUM CHLORIDE 0.9% FLUSH 10 ML FLUSH IV FLUSH PRN (18:45)
[2017-09-07] MEDS: SODIUM CHLORIDE 0.9% FLUSH 10 ML FLUSH IV FLUSH SCH (20:53)
[2017-09-07 21:59] LABS: CREATINE KINASE 102 U/L (39-308)
[2017-09-07] MEDS ORDERED: ALPRAZolam 0.25 MG TAB PO PRN (22:00)
[2017-09-07] MEDS ORDERED: ACETAMINOPHEN 500 MG CPLT PO PRN (22:00)
[2017-09-07 22:12] LABS: CKMB 2.7 NG/ML (0.5-3.6)
[2017-09-07 22:21] VITALS: BP 155/82; PULSE 77; RESP 18; TEMP 97.9; O2SAT 98
[2017-09-08] VITALS (8 sets, daily range): BP systolic 124–135; BP diastolic 61–89; PULSE 78–88; RESP 16–19; TEMP 98–98.4; O2SAT 96–98
[2017-09-08] MEDS: NITROGLYCERIN 0.4 MG SL 25 TABS/BTL SL PRN ×2 (00:28→01:35)
[2017-09-08 00:50] LABS: CREATINE KINASE 105 U/L (39-308)
[2017-09-08 01:24] LABS: CKMB 3.1 NG/ML (0.5-3.6)
[2017-09-08] MEDS: MORPHINE SULFATE 4 MG/ML INJ IV PRN ×3 (01:46→14:36)
[2017-09-08] MEDS ORDERED: ONDANSETRON HCL 4 MG/2 ML VIAL IV PUSH PRN (07:45)
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
[2017-09-08] MEDS ORDERED: PANTOPRAZOLE SOD 40 MG DELAYED RELEASE TAB PO SCH (09:00)
[2017-09-08] MEDS: SODIUM CHLORIDE 0.9% FLUSH 10 ML FLUSH IV FLUSH SCH (09:33)
[2017-09-08] MEDS ORDERED: REGADENOSON INJ 0.4 MG/5 ML SYR ONE (11:09)
--- NOTE | 2017-09-08 12:25 | RADRPT ---
EXAM DATE/TIME: 09/08/2017 10:41 [facility] COMPARISON: MYOCARDIAL PERF PHARM SPECT, GATED W/EF, December 20, 2016, 8:48. INDICATIONS : Chest pain for 1 day. Angina. Congestive heart failure. DOSE: 25.9 mCi Tc99m Myoview at stress. 8.7 mCi Tc99m Myoview at rest. 0.4 mg Lexiscan STRESS SYMPTOMS: Dyspnea and nausea. EJECTION FRACTION: 45% MEDICAL HISTORY : Cardiovascular disease. Chronic obstructive pulmonary disease. Hypertension. SURGICAL HISTORY : Coronary artery stent. CABG ENCOUNTER: Initial ACUITY: 1 day PAIN SCALE: 8/10 LOCATION: Bilateral chest TECHNIQUE: The patient underwent pharmacologic stress with infusion of prescribed dose. Continuous ECG tracing was monitored during stress. Gated SPECT imaging was performed after stress and conventional SPECT i maging was performed at rest. The examination was performed on a SPECT/CT scanner, both attenuation and non-corrected datasets were reviewed. FINDINGS: DISTRIBUTION: The maximum perfused segment at stress is in the anterior wall. PERFUSION STUDY: There is a moderate size predominantly fixed lateral wall defect again noted with no definite reversi bility. There is a summed stress score of 8. GATED STUDY: There is intact wall motion and thickening without hypokinetic or dyskinetic segments. CONCLUSION: 1. Moderate size predominantly fixed lateral wall defect again noted most consistent with an area of prior infarction. There is no definite reversibility to suggest ischemia. 2. Decreased calculated ejection fraction of 45% with no focal wall motion abnormality. RISK CATEGORY: Intermediate (1-3% Annual Mortality Rate) Billy Bradford MD on September 08, 2017 at 12:19 Board Certified Radiologist. This report was verified electronically.
--- NOTE | 2017-09-08 14:55 | EKG ---
Date Performed: 09/08/2017 Time Performed: 00:04:37 PTAGE: 62 years EKG: Sinus rhythm POSSIBLE LEFT ATRIAL ENLARGEMENT BORDERLINE ECG NO SIG CHANGES PREVIOUS TRACING : 09/07/2017 21.11 DOCTOR: Misha Mckinley Interpretating Date/Time 09/08/2017 14:53:07
--- NOTE | 2017-09-08 14:56 | EKG ---
Date Performed: 09/07/2017 Time Performed: 21:11:20 PTAGE: 62 years EKG: Sinus rhythm NORMAL ECG NO CHANGE PREVIOUS TRACING : 09/07/2017 17.44 DOCTOR: Misha Mckinley Interpretating Date/Time 09/08/2017 14:54:20
--- NOTE | 2017-09-08 15:09 | EKG ---
Date Performed: 09/07/2017 Time Performed: 17:44:09 PTAGE: 62 years EKG: SINUS TACHYCARDIA POSSIBLE LEFT ATRIAL ENLARGEMENT ABNORMAL RHYTHM ECG MINOR CHANGES V1 V2 PREVIOUS TRACING : 08/29/2017 17.53 DOCTOR: Misha Mckinley Interpretating Date/Time 09/08/2017 15:08:03
--- NOTE | 2017-09-08 15:11 | HHI.DCPOC ---
Discharge Care Plan Diagnosis: (1) Chronic pain (2) Chronic chest pain (3) Tobacco abuse (4) CAD (coronary artery disease) Goals to Promote Your Health * To prevent worsening of your condition and complications * To maintain your health at the optimal level Directions to Meet Your Goals Take your medications as prescribed Follow your dietary instruction Follow activity as directed Keep your appointments as scheduled Take your immunizations and boosters as scheduled If your symptoms worsen call your PCP, if no PCP go to Urgent Care Center or Emergency Room Smoking is Dangerous to Your Health. Avoid second hand smoke Call the 24-hour hour crisis hotline for domestic abuse at Mago Mcgee Sep 08, 2017 15:11
--- NOTE | 2017-09-08 15:13 | TR ---
Date Performed: 09/08/2017 Time Performed: 11:23:35 DOCTOR: Misha Mckinley DRUG LIST: CLINICAL HISTORY: CHEST PAIN REASON FOR TEST: CHEST PAIN REASON FOR ENDING: OBSERVATION: CONCLUSION: Lexiscan stress test was performed under standard four minute protocol. Radionuclide was injected one minute prior to ending the test. No electrocardiographic abormalities were present to suggest ischemia. Nuclear imaging and interpretation are pending. COMMENTS:
[2017-09-08 16:17] LABS: CREATINE KINASE 89 U/L (39-308)
== END 2017-09-08 16:21 | disposition home or self-care (01) ==
LOC: NEPE 17:29 → NEDA 18:37 → NEPHCDU 19:24
PROVIDERS: ADMIT Internal Medicine Interventional Cardiology; ATTEND Internal Medicine Interventional Cardiology
DX: R07.9 Chest pain, unspecified (principal); Z95.1 Presence of aortocoronary bypass graft; I25.10 Atherosclerotic heart disease of native coronary artery without angina pectoris; Z79.01 Long term (current) use of anticoagulants; F41.9 Anxiety disorder, unspecified; F32.9 Major depressive disorder, single episode, unspecified; E78.00 Pure hypercholesterolemia, unspecified; J44.9 Chronic obstructive pulmonary disease, unspecified; K21.9 Gastro-esophageal reflux disease without esophagitis; K44.9 Diaphragmatic hernia without obstruction or gangrene; I10 Essential (primary) hypertension; F17.210 Nicotine dependence, cigarettes, uncomplicated; F12.10 Cannabis abuse, uncomplicated; Z79.899 Other long term (current) drug therapy; M54.9 Dorsalgia, unspecified; G89.29 Other chronic pain; Z59.0 Homelessness; R61 Generalized hyperhidrosis; R11.0 Nausea; Z87.442 Personal history of urinary calculi; R94.31 Abnormal electrocardiogram [ECG] [EKG]
CPT/HCPCS: 71010; 78452; 80048; 82550; 82552; 84484; 85025; 85610; 85730; 93005; 93017; 96374; 96375; 96376; 99285; A9502; G0378; J2270; J2405; J2785

== ENCOUNTER 2017-11-20 20:13 | Emergency (ER) | payer MEDICAID ==
[~2017-11-20 20:13] MED LIST changes: +ASPI-516 CHEW; -ASPI81CH CHEW
[2017-11-20 20:14] VITALS: BP 176/81; PULSE 103; RESP 18; TEMP 97.9; O2SAT 98
[2017-11-20 21:04] VITALS: BP 148/76; PULSE 92; RESP 24; O2SAT 96
--- NOTE | 2017-11-20 21:12 | PD ---
HPI Chief Complaint: Chest Pain Time Seen by Provider: 21:01 Travel History International Travel<30 days: No Contact w/Intl Traveler<30days: No Traveled to known affect area: No History of Present Illness HPI 62-year-old male complains of chest pain. Patient states the chest pain started about half an hour prior to arrival. Patient states the pain is substernal pressure and sharp pain with radiation to left arm. Patient with numbness sensation the left hand. Patient denies any coughing congestion fever chills. Patient denies any palpitation diaphoresis. Patient has history of CAD status post CABG and stents placement. Patient has frequent recurrent chest pain. Patient has been seen in emergency room several times in the past with chest pain. Patient had a Lexiscan stress test done in August 2017 which was normal. On a scale from 1-10 the pain is an 8. PFSH Past Medical History Hx Anticoagulant Therapy: Yes (EFFIENT) Arthritis: Yes Asthma: No Blood Disorders: No Anxiety: Yes Depression: Yes Heart Rhythm Problems: Yes Cancer: No Cardiac Catheterization: Yes Cardiovascular Problems: Yes (MD, 7 STENTS) High Cholesterol: Yes Chemotherapy: No Chest Pain: Yes Congestive Heart Failure: No COPD: Yes Coronary Artery Disease: Yes Diabetes: No Diminished Hearing: No Endocrine: No Gastrointestinal Disorders: Yes GERD: Yes Genitourinary: No Hiatal Hernia: Yes Hypertension: Yes Immune Disorder: No Implanted Vascular Access Dvce: Yes Kidney Stones: Yes Musculoskeletal: No Neurologic: Yes Psychiatric: Yes Reproductive: No Respiratory: Yes Immunizations Current: Yes Migraines: Yes Myocardial Infarction: Yes Radiation Therapy: No Sleep Apnea: No Thyroid Disease: No Past Surgical History Body Medical Devices: STENTS Cardiac Surgery: Yes (CABG X2, STENTS) Coronary Artery Bypass Graft: Yes (DOUBLE BYPASS) Coronary Stent: Yes (X 7) Thoracic Surgery: Yes (HX of CABG x 2) Other Surgery: Yes (CABG, STENTING) Family History Family Myocardial Infarction: Yes Social History Alcohol Use: No Tobacco Use: Yes (3 CIG) Substance Use: Yes (MARIJUANA) Allergies-Medications (Allergen,Severity, Reaction): Coded Allergies: ketorolac (Verified Allergy, Severe, RASH, 09/07/17) penicillin G (Verified Allergy, Unknown, Anaphylaxis, 09/07/17) Reported Meds & Prescriptions Reported Meds & Active Scripts Active Oxycodone (Oxycodone HCl) 10 Mg Tab 30 Mg PO Q6H PRN Xanax (Alprazolam) 1 Mg Tab 1 Mg PO BID Isosorbide Mononitrate ER (Isosorbide Mononitrate) 60 Mg Tab 60 Mg PO BID 30 Days Effient (Prasugrel) 10 Mg Tab 10 Mg PO DAILY Lipitor (Atorvastatin Calcium) 80 Mg Tab 80 Mg PO DAILY Aspirin 81 Mg Chew 81 Mg CHEW DAILY Fluticasone Nasal [place] 50 Mcg/Act Naspr 1 [place] NASAL BID Ventolin Hfa 18 GM Inh (Albuterol Sulfate) 90 Mcg/Act Aer 2 Puff INH Q4-6H PRN Reported Gabapentin 600 Mg Tab 600 Mg PO BID Potassium Chloride ER (Potassium Chloride) 20 Meq Tab 20 Meq PO DAILY Review of Systems General / Constitutional: No: Fever Eyes: No: Visual changes HENT: No: Headaches Cardiovascular: Positive: Chest Pain or Discomfort Respiratory: No: Shortness of Breath Gastrointestinal: No: Abdominal Pain Genitourinary: No: Dysuria Musculoskeletal: No: Pain Skin: No Rash Neurologic: No: Weakness Psychiatric: No: Depression Endocrine: No: Polydipsia Hematologic/Lymphatic: No: Easy Bruising Physical Exam Narrative GENERAL: Well-nourished, well-developed patient. SKIN: Focused skin assessment warm/dry. HEAD: Normocephalic. EYES: No scleral icterus. No injection or drainage. NECK: Supple, trachea midline. No JVD or lymphadenopathy. CARDIOVASCULAR: Regular rate and rhythm without murmurs, gallops, or rubs. RESPIRATORY: Breath sounds equal bilaterally. No accessory muscle use. GASTROINTESTINAL: Abdomen soft, non-tender, nondistended. MUSCULOSKELETAL: No cyanosis, or edema. BACK: Nontender without obvious deformity. No CVA tenderness. Neurologic exam normal. Data Data Last Documented VS Vital Signs Date Time Temp Pulse Resp B/P (MAP) Pulse Ox O2 Delivery O2 Flow Rate FiO2 11/20/17 22:43 93 20 144/105 (118) 98 Room Air 11/20/17 21:04 2.00 11/20/17 20:14 97.9 Orders Orders Electrocardiogram (11/20/17 21:09) Complete Blood Count With Diff (11/20/17 21:09) Comprehensive Metabolic Panel (11/20/17 21:09) Creatine Kinase (Cpk) (11/20/17 21:09) Troponin I (11/20/17 21:09) Prothrombin Time / Inr (Pt) (11/20/17 21:09) Act Partial Throm Time (Ptt) (11/20/17 21:09) Chest, Single Ap (11/20/17 21:09) Iv Access Insert/Monitor (11/20/17 21:09) Ecg Monitoring (11/20/17 21:09) Oximetry (11/20/17 21:09) Aspirin Chew (Aspirin Chew) (11/20/17 21:15) Labs Laboratory Tests Test 11/20/17 21:40 White Blood Count 11.3 TH/MM3 Red Blood Count 5.12 MIL/MM3 Hemoglobin 15.3 GM/DL Hematocrit 45.6 % Mean Corpuscular Volume 89.0 FL Mean Corpuscular Hemoglobin 29.8 PG Mean Corpuscular Hemoglobin Concent 33.5 % Red Cell Distribution Width 13.9 % Platelet Count 252 TH/MM3 Mean Platelet Volume 8.4 FL Neutrophils (%) (Auto) 79.9 % Lymphocytes (%) (Auto) 12.2 % Monocytes (%) (Auto) 5.4 % Eosinophils (%) (Auto) 1.6 % Basophils (%) (Auto) 0.9 % Neutrophils # (Auto) 9.1 TH/MM3 Lymphocytes # (Auto) 1.4 TH/MM3 Monocytes # (Auto) 0.6 TH/MM3 Eosinophils # (Auto) 0.2 TH/MM3 Basophils # (Auto) 0.1 TH/MM3 CBC Comment DIFF FINAL Differential Comment Prothrombin Time 9.6 SEC Prothromb Time International Ratio 0.9 RATIO Activated Partial Thromboplast Time 26.8 SEC Blood Urea Nitrogen 18 MG/DL Creatinine 1.30 MG/DL Random Glucose 114 MG/DL Total Protein 7.8 GM/DL Albumin 4.2 GM/DL Calcium Level 9.0 MG/DL Alkaline Phosphatase 98 U/L Aspartate Amino Transf (AST/SGOT) 17 U/L Alanine Aminotransferase (ALT/SGPT) 23 U/L Total Bilirubin 0.3 MG/DL Sodium Level 138 MEQ/L Potassium Level 3.9 MEQ/L Chloride Level 98 MEQ/L Carbon Dioxide Level 33.4 MEQ/L Anion Gap 7 MEQ/L Estimat Glomerular Filtration Rate 56 ML/MIN Total Creatine Kinase 155 U/L Troponin I 0.02 NG/ML MDM Medical Decision Making Medical Screen Exam Complete: Yes Emergency Medical Condition: Yes Medical Record Reviewed: Yes Interpretation(s) EKG shows sinus rhythm nonspecific ST-T wave change. Last Impressions Chest X-Ray 11/20/172108 Signed Impressions: Service Date/Time: Monday, November 20, 2017 21:17 - CONCLUSION: Normal examination. Numerous intact sternal wires Calvin Delgado MD 23:29 PM. CBC within normal limit. CMP within normal limit. Cardiac enzymes are normal. Differential Diagnosis Differential diagnosis including musculoskeletal, angina, MD, PE, pneumothorax. Narrative Course 62-year-old male with chest pain. History of CAD status post CABG and stents placement. History of recurrent chest pain. Aspirin 162 mg by mouth given. Diagnosis Primary Impression: Atypical chest pain Patient Instructions: General Instructions Additional Instructions: Tylenol for pain. Continue with aspirin as directed. Follow-up with personal physician. Return if increasing chest pain shortness of breath. Med/Other Pt SpecificInfo: No Change to Meds Disposition: 01 DISCHARGE HOME Condition: Stable Vernon Weber MD Nov 20, 2017 21:12
[2017-11-20] MEDS ORDERED: ASPIRIN 81 MG CHEW TAB CHEW ONE (21:15)
[2017-11-20 21:48] LABS: AUTOMATED NEUTROPHIL # 9.1 TH/MM3 (1.8-7.7); BASOPHIL # 0.1 TH/MM3 (0-0.2); BASOPHIL % 0.9 % (0.0-2.0); EOSINOPHIL # 0.2 TH/MM3 (0-0.4); EOSINOPHIL % 1.6 % (0.0-4.0); HEMATOCRIT 45.6 % (39.0-51.0); HEMOGLOBIN 15.3 GM/DL (13.0-17.0); LYMPH % 12.2 % (9.0-44.0); LYMPHOCYTE # 1.4 TH/MM3 (1.0-4.8); MEAN CORPUSCULAR HEMOGLOBIN 29.8 PG (27.0-34.0); MEAN CORPUSCULAR HGB CONC 33.5 % (32.0-36.0); MEAN PLATELET VOLUME 8.4 FL (7.0-11.0); MONO % 5.4 % (0.0-8.0); MONOCYTE # 0.6 TH/MM3 (0-0.9); NEUT % 79.9 % (16.0-70.0); PLATELET COUNT 252 TH/MM3 (150-450); RED BLOOD COUNT 5.12 MIL/MM3 (4.50-5.90); RED CELL DISTRIBUTION WIDTH 13.9 % (11.6-17.2); WHITE BLOOD COUNT 11.3 TH/MM3 (4.0-11.0)
--- NOTE | 2017-11-20 21:53 | RADRPT ---
EXAM DATE/TIME: 11/20/2017 21:17 [facility] COMPARISON: CHEST SINGLE AP, September 07, 2017, 17:53. INDICATIONS : Chest pain. MEDICAL HISTORY : Chronic obstructive pulmonary disease. Myocardial infarction. Congestive heart failure. SURGICAL HISTORY : CABG. Coronary artery stent. ENCOUNTER: Initial ACUITY: 1 day PAIN SCORE: 5/10 LOCATION: Bilateral chest FINDINGS: A single view of the chest demonstrates the lungs to be symmetrically aerated without evidence of mas s, infiltrate or effusion. The cardiomediastinal contours are unremarkable. Osseous structures are intact. CONCLUSION: Normal examination. Numerous intact sternal wires Calvin Delgado MD on November 20, 2017 at 21:50 Board Certified Radiologist. This report was verified electronically.
[2017-11-20 22:03] LABS: INTERNATIONAL NORMALIZED RATIO 0.9 RATIO; PROTHROMBIN TIME - PATIENT 9.6 SEC (9.8-11.6)
[2017-11-20 22:04] LABS: ALBUMIN 4.2 GM/DL (3.4-5.0); AST (GOT) 17 U/L (15-37); BICARBONATE 33.4 MEQ/L (21.0-32.0); BLOOD UREA NITROGEN 18 MG/DL (7-18); CHLORIDE 98 MEQ/L (98-107); GLOMERULAR FILTRATION RATE 56 ML/MIN (>89); GLUCOSE,RANDOM 114 MG/DL (74-106); SODIUM (NA) 138 MEQ/L (136-145)
[2017-11-20 22:05] LABS: ALT (GPT) 23 U/L (12-78)
[2017-11-20 22:09] LABS: ALKALINE PHOSPHATASE 98 U/L (45-117); TOTAL BILIRUBIN ADULT 0.3 MG/DL (0.2-1.0); TOTAL PROTEIN 7.8 GM/DL (6.4-8.2); TROPONIN I 0.02 NG/ML (0.02-0.05)
[2017-11-20 22:43] VITALS: BP 144/105; PULSE 93; RESP 20; O2SAT 98
--- NOTE | 2017-11-21 20:57 | EKG ---
Date Performed: 11/20/2017 Time Performed: 20:56:07 PTAGE: 62 years EKG: Sinus rhythm POSSIBLE LEFT ATRIAL ENLARGEMENT NONSPECIFIC T-WAVE ABNORMALITY BORDERLINE ECG PREVIOUS TRACING 09/08/17 @ 0004 SINCE PRIOR TRACING NO SIGNIFICANT CHANGE NOTED DOCTOR: Fidelina Turcios Interpretating Date/Time 11/21/2017 20:55:06
== END 2017-11-20 23:45 | disposition home or self-care (01) ==
LOC: NEPE 20:13
DX: R07.89 Other chest pain (principal); R20.0 Anesthesia of skin; Z95.1 Presence of aortocoronary bypass graft; Z95.5 Presence of coronary angioplasty implant and graft; E78.00 Pure hypercholesterolemia, unspecified; J44.9 Chronic obstructive pulmonary disease, unspecified; I25.10 Atherosclerotic heart disease of native coronary artery without angina pectoris; K21.9 Gastro-esophageal reflux disease without esophagitis; I10 Essential (primary) hypertension; I25.2 Old myocardial infarction; F17.200 Nicotine dependence, unspecified, uncomplicated; F12.90 Cannabis use, unspecified, uncomplicated
CPT/HCPCS: 71045; 80053; 82550; 84484; 85025; 85610; 85730; 93005; 99285

== ENCOUNTER 2017-11-28 10:08 | Observation (INO) | payer MEDICAID ==
[~2017-11-28] VITALS: Ht 170.2 cm; Wt 70.0 kg
[~2017-11-28 10:08] MED LIST changes: -NITR1SUB2 SL; -PROT40TA PO
[2017-11-28 10:12] VITALS: BP 175/101; PULSE 90; RESP 26; TEMP 98.4; O2SAT 100
[2017-11-28] MEDS ORDERED: FURO20TA PO (10:19)
[2017-11-28] MEDS ORDERED: SODIUM CHLORIDE 0.9% FLUSH 10 ML FLUSH IVF PRN (10:30)
[2017-11-28] MEDS ORDERED: NITROGLYCERIN 2% OINT 1 GM PACKET TOP ONE (10:30)
--- NOTE | 2017-11-28 10:39 | PD ---
HPI Chief Complaint: Chest Pain Time Seen by Provider: 10:23 Travel History International Travel<30 days: No Contact w/Intl Traveler<30days: No Traveled to known affect area: No History of Present Illness HPI 62yo M presented to the ED with chest pain. He states that he was riding the bus home this morning from his girlfriend's house when he started having chest pain in the middle of his chest that radiates down his left arm and into his jaw. He describes the pain as a burning sensation and rates it a 9/10. Pt reports that he took 4 baby aspirin and a nitroglycerin dose with some relief. He does have an extensive cardiac history with a total of 7 cardiac stents, COPD , tobacco use, syncopal events of unknown origin and history of drug use which he claims was in the 1980s. He admits to nausea, headache behind his R eye, blurred vision and SOB. Pt denies any vomiting, dizziness, lightheadedness, or weakness. Patient later also tells me that he has had episodes of "falling out ", is unsure what happens, he states he fell yesterday down the stairs. Modifying Factors: None Associated Signs & Symptoms: Chest pain, syncope, fall downstairs Risk Factors: Cardiac history PFSH Past Medical History Hx Anticoagulant Therapy: Yes (EFFIENT) Arthritis: Yes Asthma: No Blood Disorders: No Anxiety: Yes Depression: Yes Heart Rhythm Problems: Yes Cancer: No Cardiac Catheterization: Yes Cardiovascular Problems: Yes High Cholesterol: Yes Chemotherapy: No Chest Pain: Yes Congestive Heart Failure: No COPD: Yes Coronary Artery Disease: Yes Diabetes: No Diminished Hearing: No Endocrine: No Gastrointestinal Disorders: Yes GERD: Yes Genitourinary: No Hiatal Hernia: Yes Hypertension: Yes Immune Disorder: No Implanted Vascular Access Dvce: Yes Kidney Stones: Yes Musculoskeletal: No Neurologic: Yes Psychiatric: Yes Reproductive: No Respiratory: Yes Immunizations Current: Yes Migraines: Yes Myocardial Infarction: Yes Radiation Therapy: No Sleep Apnea: No Thyroid Disease: No Past Surgical History Body Medical Devices: STENTS Cardiac Surgery: Yes (CABG X2, STENTS) Coronary Artery Bypass Graft: Yes (DOUBLE BYPASS) Coronary Stent: Yes (X 7) Thoracic Surgery: Yes (HX of CABG x 2) Other Surgery: Yes (CABG, STENTING) Family History Family Myocardial Infarction: Yes Social History Alcohol Use: No Tobacco Use: Yes (5 CIG) Substance Use: Yes (MARIJUANA) Allergies-Medications (Allergen,Severity, Reaction): Coded Allergies: ketorolac (Verified Allergy, Severe, RASH, 11/28/17) penicillin G (Verified Allergy, Unknown, Anaphylaxis, 11/28/17) Reported Meds & Prescriptions Reported Meds & Active Scripts Active Oxycodone (Oxycodone HCl) 10 Mg Tab 30 Mg PO Q6H PRN Xanax (Alprazolam) 1 Mg Tab 1 Mg PO BID Isosorbide Mononitrate ER (Isosorbide Mononitrate) 60 Mg Tab 60 Mg PO BID 30 Days Effient (Prasugrel) 10 Mg Tab 10 Mg PO DAILY Lipitor (Atorvastatin Calcium) 80 Mg Tab 80 Mg PO DAILY Aspirin 81 Mg Chew 81 Mg CHEW DAILY Ventolin Hfa 18 GM Inh (Albuterol Sulfate) 90 Mcg/Act Aer 2 Puff INH Q4-6H PRN Reported Furosemide 20 Mg Tab 20 Mg PO DAILY Gabapentin 600 Mg Tab 600 Mg PO BID Potassium Chloride ER (Potassium Chloride) 20 Meq Tab 20 Meq PO DAILY Review of Systems Except as stated in HPI: all other systems reviewed are Neg Physical Exam Narrative GENERAL: Pleasant 62yo M who is well-developed and well nourished in mild distress. Alert and oriented x3. SKIN: Warm and dry. Several ecchymosis of various ages in the R antecubital and L upper chest. HEAD: Atraumatic. Normocephalic. EYES: Pupils equal and round. No scleral icterus. No injection or drainage. NECK: Trachea midline. No JVD. Supple. CARDIOVASCULAR: Regular rate and rhythm. No murmurs or gallops. Open heart surgical scar noted over sternum. RESPIRATORY: No accessory muscle use. Clear to auscultation. Breath sounds equal bilaterally. GASTROINTESTINAL: Abdomen soft, non-tender, nondistended. Hepatic and splenic margins not palpable. MUSCULOSKELETAL: Extremities without clubbing, cyanosis, or edema. No obvious deformities. NEUROLOGICAL: Awake and alert. No obvious cranial nerve deficits. Motor grossly within normal limits. Normal speech. PSYCHIATRIC: Appropriate mood and affect; insight and judgment normal. Data Data Last Documented VS Vital Signs Date Time Temp Pulse Resp B/P (MAP) Pulse Ox O2 Delivery O2 Flow Rate FiO2 11/28/17 10:55 159/89 (112) 11/28/17 10:12 98.4 90 26 100 Room Air Orders Orders Electrocardiogram (11/28/17 10:23) Ckmb (Isoenzyme) Profile (11/28/17 10:23) Complete Blood Count With Diff (11/28/17 10:23) Comprehensive Metabolic Panel (11/28/17 10:23) Magnesium (Mg) (11/28/17 10:23) Prothrombin Time / Inr (Pt) (11/28/17 10:23) Act Partial Throm Time (Ptt) (11/28/17 10:23) Troponin I (11/28/17 10:23) Chest, Single Ap (11/28/17 10:23) Ecg Monitoring (11/28/17 10:23) Bilateral Bp Monitoring (11/28/17 10:23) Iv Access Insert/Monitor (11/28/17 10:23) Oximetry (11/28/17 10:23) Oxygen Administration (11/28/17 10:23) Nitroglycerin 2% Oint (Nitroglycerin 2% (11/28/17 10:30) Sodium Chloride 0.9% Flush (Ns Flush) (11/28/17 10:30) Ct Brain W/O Iv Contrast(Rout) (11/28/17 10:28) CKMB (11/28/17 10:35) CKMB% (11/28/17 10:35) Admit Order (Ed Use Only) (11/28/17 12:40) Labs Laboratory Tests Test 11/28/17 10:35 White Blood Count 11.0 TH/MM3 Red Blood Count 4.91 MIL/MM3 Hemoglobin 15.1 GM/DL Hematocrit 44.1 % Mean Corpuscular Volume 89.7 FL Mean Corpuscular Hemoglobin 30.7 PG Mean Corpuscular Hemoglobin Concent 34.2 % Red Cell Distribution Width 13.9 % Platelet Count 302 TH/MM3 Mean Platelet Volume 9.0 FL Neutrophils (%) (Auto) 79.1 % Lymphocytes (%) (Auto) 15.3 % Monocytes (%) (Auto) 4.9 % Eosinophils (%) (Auto) 0.3 % Basophils (%) (Auto) 0.4 % Neutrophils # (Auto) 8.7 TH/MM3 Lymphocytes # (Auto) 1.7 TH/MM3 Monocytes # (Auto) 0.5 TH/MM3 Eosinophils # (Auto) 0.0 TH/MM3 Basophils # (Auto) 0.0 TH/MM3 CBC Comment DIFF FINAL Differential Comment Prothrombin Time 10.5 SEC Prothromb Time International Ratio 1.0 RATIO Activated Partial Thromboplast Time 24.8 SEC Blood Urea Nitrogen 12 MG/DL Creatinine 1.00 MG/DL Random Glucose 109 MG/DL Total Protein 8.1 GM/DL Albumin 4.3 GM/DL Calcium Level 8.9 MG/DL Magnesium Level 2.2 MG/DL Alkaline Phosphatase 88 U/L Aspartate Amino Transf (AST/SGOT) 30 U/L Alanine Aminotransferase (ALT/SGPT) 24 U/L Total Bilirubin 0.8 MG/DL Sodium Level 139 MEQ/L Potassium Level 4.6 MEQ/L Chloride Level 107 MEQ/L Carbon Dioxide Level 22.5 MEQ/L Anion Gap 10 MEQ/L Estimat Glomerular Filtration Rate 76 ML/MIN Total Creatine Kinase 216 U/L Creatine Kinase MB 2.8 NG/ML Troponin I LESS THAN 0.02 NG/ML MDM Medical Decision Making Medical Screen Exam Complete: Yes Emergency Medical Condition: Yes Medical Record Reviewed: Yes Interpretation(s) EKG shows NSR, no ST elevation or depression, and no arrhythmias. No significant T-wave inversions. Laboratory Tests Test 11/28/17 10:35 Neutrophils (%) (Auto) 79.1 % (16.0-70.0) Neutrophils # (Auto) 8.7 TH/MM3 (1.8-7.7) Random Glucose 109 MG/DL (74-106) Estimat Glomerular Filtration Rate 76 ML/MIN (>89) Troponin I LESS THAN 0.02 NG/ML Last [address] 11/28/17 1028 Signed Impressions: Service Date/Time: November 10:41 - CONCLUSION: Normal examination. Calvin Delgado MD Chest X-Ray 11/28/17 1023 Signed Impressions: Service Date/Time: November 10:38 - CONCLUSION: Normal examination. 4 intact sternal wires and clips suggesting CABG Calvin Delgado MD Differential Diagnosis ACS versus pneumonia versus rib contusions versus dysrhythmias versus dehydration versus metabolic issues Narrative Course EKG did not show any significant dysrhythmias or ST changes. Cardiac enzymes are unremarkable. At about panel was otherwise unremarkable. CT did not show any signs of acute intracranial injuries or issues. At this point, considering that he is having the syncopal episodes, my plan would be to admit him for further evaluation. Case was discussed with Dr. Brand for admission. Diagnosis Primary Impression: Syncope Additional Impression: Chest pain Admitting Information Admitting Physician Requests: it Sangeeta Sanderson MD Nov 28, 2017 10:39
[2017-11-28 10:54] LABS: AUTOMATED NEUTROPHIL # 8.7 TH/MM3 (1.8-7.7); BASOPHIL % 0.4 % (0.0-2.0); EOSINOPHIL % 0.3 % (0.0-4.0); HEMATOCRIT 44.1 % (39.0-51.0); HEMOGLOBIN 15.1 GM/DL (13.0-17.0); LYMPH % 15.3 % (9.0-44.0); LYMPHOCYTE # 1.7 TH/MM3 (1.0-4.8); MEAN CELL VOLUME 89.7 FL (80.0-100.0); MEAN CORPUSCULAR HEMOGLOBIN 30.7 PG (27.0-34.0); MEAN CORPUSCULAR HGB CONC 34.2 % (32.0-36.0); MONO % 4.9 % (0.0-8.0); MONOCYTE # 0.5 TH/MM3 (0-0.9); NEUT % 79.1 % (16.0-70.0); PLATELET COUNT 302 TH/MM3 (150-450); RED BLOOD COUNT 4.91 MIL/MM3 (4.50-5.90); RED CELL DISTRIBUTION WIDTH 13.9 % (11.6-17.2)
[2017-11-28 10:55] VITALS: BP 159/89
[2017-11-28 11:05] LABS: PROTHROMBIN TIME - PATIENT 10.5 SEC (9.8-11.6)
--- NOTE | 2017-11-28 11:06 | RADRPT ---
EXAM DATE/TIME: 11/28/2017 10:38 [facility] COMPARISON: CHEST SINGLE AP, November 20, 2017, 21:17. INDICATIONS : Chest pains radiating into left jaw. MEDICAL HISTORY : Myocardial infarction. SURGICAL HISTORY : CABG. 7 cardiac stents. ENCOUNTER: Initial ACUITY: 1 day PAIN SCORE: 10/10 LOCATION: Left chest FINDINGS: A single view of the chest demonstrates the lungs to be symmetrically aerated without evidence of mas s, infiltrate or effusion. The cardiomediastinal contours are unremarkable. Osseous structures are intact. CONCLUSION: Normal examination. 4 intact sternal wires and clips suggesting CABG Calvin Delgado MD on November 28, 2017 at 11:04 Board Certified Radiologist. This report was verified electronically.
--- NOTE | 2017-11-28 11:13 | RADRPT ---
EXAM DATE/TIME: 11/28/2017 10:41 [facility] COMPARISON: CT BRAIN W/O CONTRAST, March 26, 2017, 8:05. INDICATIONS : Syncope last night. RADIATION DOSE: 56.35 CTDIvol (mGy) MEDICAL HISTORY : Cardiovascular disease. Hypertension. Chronic obstructive pulmonary disease. SURGICAL HISTORY : None. ENCOUNTER: Initial ACUITY: 1 day PAIN SCALE: 0/10 LOCATION: cranial TECHNIQUE: Multiple contiguous axial images were obtained of the head. Using automated exposure control and adj ustment of the mA and/or kV according to patient size, radiation dose was kept as low as reasonably a chievable to obtain optimal diagnostic quality images. DICOM format image data is available electro nically for review and comparison. FINDINGS: CEREBRUM: The ventricles are normal for age. No evidence of midline shift, mass lesion, hemorrhage or acute in farction. No extra-axial fluid collections are seen. POSTERIOR FOSSA: The cerebellum and brainstem are intact. The 4th ventricle is midline. The cerebellopontine angle i s unremarkable. EXTRACRANIAL: The visualized portion of the orbits is intact. SKULL: The calvaria is intact. No evidence of skull fracture. CONCLUSION: Normal examination. Calvin Delgado MD on November 28, 2017 at 11:10 Board Certified Radiologist. This report was verified electronically.
[2017-11-28 11:19] LABS: ALBUMIN 4.3 GM/DL (3.4-5.0); ALT (GPT) 24 U/L (12-78); AST (GOT) 30 U/L (15-37); BICARBONATE 22.5 MEQ/L (21.0-32.0); BLOOD UREA NITROGEN 12 MG/DL (7-18); CALCIUM 8.9 MG/DL (8.5-10.1); CHLORIDE 107 MEQ/L (98-107); GLOMERULAR FILTRATION RATE 76 ML/MIN (>89); GLUCOSE,RANDOM 109 MG/DL (74-106); MAGNESIUM 2.2 MG/DL (1.5-2.5); SODIUM (NA) 139 MEQ/L (136-145)
[2017-11-28 11:27] LABS: ALKALINE PHOSPHATASE 88 U/L (45-117); TOTAL BILIRUBIN ADULT 0.8 MG/DL (0.2-1.0); TOTAL PROTEIN 8.1 GM/DL (6.4-8.2); TROPONIN I LESS THAN 0.02 NG/ML (0.02-0.05)
--- NOTE | 2017-11-28 12:54 | HHI.HP ---
[facility] Primary Care Physician Unknown Admission Diagnosis chest pain/syncope Diagnoses: Chief Complaint: Chest pain Travel History International Travel<30 Days: No Contact w/Intl Traveler <30 Da: No Traveled to Known Affected Are: No History of Present Illness This is a 62-year-old male past medical history coronary disease status post CABG and stent placement with multiple visits and admission secondary to chest pain. Patient had a CABG 2 in 2012 with a catheter in November 2016 demonstrating patency of grafts and stent. He had a nuclear stress done August 2017 which showed no ischemia. Patient complaining of chest pain that started at 855 this morning. Chest pain described as burning radiating to his arm. Positive for nausea but no vomiting. Negative for any diaphoresis. He stated he to nitroglycerin without any relief. Patient continues to complain of chest pain but no EKG changes and troponin was negative. Patient had many visits with in the ED noted from prior providers with drug-seeking behavior. Patient continues to smoke 5 cigars per day. He stated that he sees Dr. Wu, yarn dyer a few months ago. I asked patient what did his yarn dyer say in regards to his chest pain since he continues to complain about chest pain throughout the year he stated that he wanted do more workup. When I asked him what type of workup he stated he didn' t know. Patient stated that he has a lot of issues in his life so he can keep track of anything. 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 Patient stated that he always have syncope and he's been in the hospital multiple times for this. He stated that he thinks is due to his heart. He did not have any chest pain, palpitation, shortness of breathing, lightheadedness or dizziness with these episodes. Patient stated that his friend witnessed it and told him to get up and he got up. Denies any incontinence. He did that he was twitching but during my interview was not twitching at all. He did a once but it was on purpose. All other review system reviewed and negative. Past Family Social History Past Medical History CAD CABG X 2 STENT HTN BACK PAIN HYPERLIPIDEMIA COPD GERD HH TOBACCO ABUSE RENAL STONES Past Surgical History CABG Multiple stent placement. Reported Medications Reported Meds & Active Scripts Active Oxycodone (Oxycodone HCl) 10 Mg Tab 30 Mg PO Q6H PRN Xanax (Alprazolam) 1 Mg Tab 1 Mg PO BID Isosorbide Mononitrate ER (Isosorbide Mononitrate) 60 Mg Tab 60 Mg PO BID 30 Days Effient (Prasugrel) 10 Mg Tab 10 Mg PO DAILY Lipitor (Atorvastatin Calcium) 80 Mg Tab 80 Mg PO DAILY Aspirin 81 Mg Chew 81 Mg CHEW DAILY Ventolin Hfa 18 GM Inh (Albuterol Sulfate) 90 Mcg/Act Aer 2 Puff INH Q4-6H PRN Reported Furosemide 20 Mg Tab 20 Mg PO DAILY Gabapentin 600 Mg Tab 600 Mg PO BID Potassium Chloride ER (Potassium Chloride) 20 Meq Tab 20 Meq PO DAILY Allergies: Coded Allergies: ketorolac (Verified Allergy, Severe, RASH, 11/28/17) penicillin G (Verified Allergy, Unknown, Anaphylaxis, 11/28/17) Active Ordered Medications Current Medications Nitroglycerin (Nitroglycerin 2% Oint) 1 inch ONCE ONCE TOP Last administered on 11/28/17at 10:57; Start 11/28/17 at 10:30; Stop 11/28/17 at 10:31; Status DC Sodium Chloride (NS Flush) 2 ml UNSCH PRN IVF FLUSH AFTER USING IV ACCESS; Start 11/28/17 at 10:30 Family History Multiple sisters, father, brothers, nephew had MIs. Social History Smokes 5 cigarettes per day at a very young age. Denies any alcohol or illicit drug use. Physical Exam Vital Signs Vital Signs Date Time Temp Pulse Resp B/P (MAP) Pulse Ox O2 Delivery O2 Flow Rate FiO2 11/28/17 10:55 159/89 (112) 11/28/17 10:12 98.4 90 26 175/101 (125) 100 Room Air Physical Exam GENERAL: This is a well-nourished, well-developed patient, in no apparent distress. SKIN: No rashes, ecchymoses or lesions. Cool and dry. HEAD: Atraumatic. Normocephalic. No temporal or scalp tenderness. EYES: Pupils equal round and reactive. Extraocular motions intact. No scleral icterus. No injection or drainage. ENT: Nose without bleeding, purulent drainage or septal hematoma. Throat without erythema, tonsillar hypertrophy or exudate. Uvula midline. Airway patent. NECK: Trachea midline. No JVD or lymphadenopathy. Supple, nontender, no meningeal signs. CARDIOVASCULAR: Regular rate and rhythm without murmurs, gallops, or rubs. RESPIRATORY: Clear to auscultation. Breath sounds equal bilaterally. No wheezes , rales, or rhonchi. GASTROINTESTINAL: Abdomen soft, non-tender, nondistended. No hepato-splenomegaly , or palpable masses. No guarding. MUSCULOSKELETAL: Extremities without clubbing, cyanosis, or edema. No joint tenderness, effusion, or edema noted. No calf tenderness. Negative Homans sign bilaterally. NEUROLOGICAL: Awake and alert. Cranial nerves II through XII intact. Motor and sensory grossly within normal limits. Five out of 5 muscle strength in all muscle groups. Normal speech. Laboratory Laboratory Tests Test 11/28/17 10:35 White Blood Count 11.0 Red Blood Count 4.91 Hemoglobin 15.1 Hematocrit 44.1 Mean Corpuscular Volume 89.7 Mean Corpuscular Hemoglobin 30.7 Mean Corpuscular Hemoglobin Concent 34.2 Red Cell Distribution Width 13.9 Platelet Count 302 Mean Platelet Volume 9.0 Neutrophils (%) (Auto) 79.1 Lymphocytes (%) (Auto) 15.3 Monocytes (%) (Auto) 4.9 Eosinophils (%) (Auto) 0.3 Basophils (%) (Auto) 0.4 Neutrophils # (Auto) 8.7 Lymphocytes # (Auto) 1.7 Monocytes # (Auto) 0.5 Eosinophils # (Auto) 0.0 Basophils # (Auto) 0.0 CBC Comment DIFF FINAL Differential Comment Prothrombin Time 10.5 Prothromb Time International Ratio 1.0 Activated Partial Thromboplast Time 24.8 Blood Urea Nitrogen 12 Creatinine 1.00 Random Glucose 109 Total Protein 8.1 Albumin 4.3 Calcium Level 8.9 Magnesium Level 2.2 Alkaline Phosphatase 88 Aspartate Amino Transf (AST/SGOT) 30 Alanine Aminotransferase (ALT/SGPT) 24 Total Bilirubin 0.8 Sodium Level 139 Potassium Level 4.6 Chloride Level 107 Carbon Dioxide Level 22.5 Anion Gap 10 Estimat Glomerular Filtration Rate 76 Total Creatine Kinase 216 Creatine Kinase MB 2.8 Troponin I LESS THAN 0.02 Result Diagram: 1/18/18 1035 11/28/17 1035 Imaging Last Impressions Head CT 11/28/17 1028 Signed Impressions: Service Date/Time: November 10:41 - CONCLUSION: Normal examination. Calvin Delgado MD Chest X-Ray 11/28/17 1023 Signed Impressions: Service Date/Time: November 10:38 - CONCLUSION: Normal examination. 4 intact sternal wires and clips suggesting CABG Calvin Delgado MD [place] VTE Risk Assessment Caprini VTE Risk Assessment: Mod/High Risk (score >= 2) Caprini Risk Assessment Model Point Value = 1 Point Value = 2 Point Value = 3 Point Value = 5 Age 41-60 Minor surgery BMI > 25 kg/m2 Swollen legs Varicose veins or History of unexplained or recurrent spontaneous Oral contraceptives or hormone replacement Sepsis (< 1 month) Serious lung disease, including pneumonia (< 1 month) Abnormal pulmonary function Acute myocardial infarction Congestive heart failure (< 1 month) History of inflammatory bowel disease Medical patient at bed rest Age 61-74 Arthroscopic surgery Major open surgery (> 45 min) Laparoscopic surgery (> 45 min) Malignancy Confined to bed (> 72 hours) Immobilizing plaster cast Central venous access Age >= 75 History of VTE Family history of VTE Factor V Leiden Prothrombin [id number] Lupus anticoagulant Anticardiolipin antibodies Elevated serum homocysteine Heparin-induced thrombocytopenia Other congenital or acquired thrombophilia Stroke (< 1 month) Elective arthroplasty Hip, pelvis, or leg fracture Acute spinal cord injury (< 1 month) Prophylaxis Regimen Total Risk Factor Score Risk Level Prophylaxis Regimen 0-1 Low Early ambulation 2 Moderate Order ONE of the following: *Sequential Compression Device (SCD) *Heparin 5000 units SQ BID 3-4 Higher Order ONE of the following medications: *Heparin 5000 units SQ TID *Enoxaparin/Lovenox 40 mg SQ daily (WT < 150 kg, CrCl > 30 mL/min) *Enoxaparin/Lovenox 30 mg SQ daily (WT < 150 kg, CrCl > 10-29 mL/min) *Enoxaparin/Lovenox 30 mg SQ BID (WT < 150 kg, CrCl > 30 mL/min) AND/OR *Sequential Compression Device (SCD) 5 or more Highest Order ONE of the following medications: *Heparin 5000 units SQ TID (Preferred with Epidurals) *Enoxaparin/Lovenox 40 mg SQ daily (WT < 150 kg, CrCl > 30 mL/min) *Enoxaparin/Lovenox 30 mg SQ daily (WT < 150 kg, CrCl > 10-29 mL/min) *Enoxaparin/Lovenox 30 mg SQ BID (WT < 150 kg, CrCl > 30 mL/min) AND *Sequential Compression Device (SCD) Assessment and Plan Assessment and Plan This is a 62-year-old male with extensive cardiac history who presents to the emergency department multiple times secondary to chest pain Chest pain -Atypical and multiple admissions due to chest pain. Lasting since this morning and continue to have chest pain despite patient looking very comfortably and no changes on EKG or troponin. -Patient stated that nitroglycerin does not help chest pain. We will resume his home medication when includes beta misty, aspirin, statin, effient, and isosorbide. Give morphine when necessary for chest pain. -Continue 2016 cardiac catheterization shows patency of vessels and nuclear stress test was negative in August 2017. -? Drug-seeking behavior. -Since patient is high risk will consult yarn dyer for further recommendation. Will monitor over telemetry, trend cardiac enzymes, trend EKGs. Will get echo. Syncope -Patient comes in multiple times due to syncope. -See treatment as above to rule out any cardiac etiology. Suspecting secondary gain. Chronic back pain -ordered placed for nurse to come from her pharmacist that patient is getting medication chronically. Coronary disease/COPD/hyperlipidemia/hypertension -Resume home medication. DVT prophylaxis -Lovenox Discussed Condition With patient and ED physician aJmila Brand MD Nov 28, 2017 12:54
[2017-11-28] MEDS ORDERED: SODIUM CHLORIDE 0.9% FLUSH 10 ML FLUSH IV FLUSH PRN (13:00)
[2017-11-28] MEDS ORDERED: ACETAMINOPHEN 500 MG CPLT PO PRN (13:00)
--- NOTE | 2017-11-28 14:19 | PD.CONS ---
HPI Consult Requested By Primary Care Physician Unknown History of Present Illness 62 YO MALE WITH KNOWN HX OF CAD, CABG, STENTS AND VERY FREQUENT VISITS TO ED. CABG X2 IN 2012 WITH A CATH 11/2016 DEMONSTRATING PATENCY OF GRAFTS AND STENTS, ASO HE HAS A LEXISCAN 08/2017 WITH NO CHANGES FROM PREVIOUS. HE HAS CHRONIC PAIN MANAGEMENT BUT IS THOUGHT TO BE MED SEEKING ON MANY VISITS HERE. CURRENTLY HE WAS ON A BUS AND DEVELOPED 8/10 MID CHEST PAIN WITH RADIATION WITH NAUSEA, DIAPHORESIS. HE CONTINUED TO CO PAIN IN ED WITH NO EKG CHANGES AND NEGATIVE TROPONIN X1. CARDIOLOGY CONSULTED FOR FURTHER EVALUATION AND MANAGEMENT. Review of Systems Consitutional: DENIES: Fatigue, Fever, Chills, Weight gain, Weight loss Eyes: DENIES: Amaurosis Fugax, Change in vision HEENT: DENIES: Lightheadedness, Change in hearing Respiratory: COMPLAINS OF: See HPI, Shortness of breath, DENIES: Cough, Snoring , Wheezing, Sputum production Cardiovascular: COMPLAINS OF: See HPI, Chest pain, DENIES: Palpitations, Syncope, Tachycardia Gastrointestinal: COMPLAINS OF: Nausea, DENIES: Vomiting, Change in bowel habits, Reflux, Bloody stools, Melena Genitourinary: DENIES: Urinary incontinence, Difficulty voiding Integumentary: DENIES: Rash Neurologic: DENIES: Tingling or numbness, Memory problems, Poor Balance, Stroke symptoms Musculoskeletal: DENIES: Joint pain, Muscle pain, Limited range of motion, Back pain Psychiatric: DENIES: Anxiety, Depression, Sleep disturbances Hematologic: DENIES: Bruising tendencies, Bleeding tendencies Endocrine: DENIES: Weight gain, Weight loss, Thyroid disease Past Family Social History Allergies: Coded Allergies: ketorolac (Verified Allergy, Severe, RASH, 11/28/17) penicillin G (Verified Allergy, Unknown, Anaphylaxis, 11/28/17) Past Medical History CAD CABG X 2 STENT HTN BACK PAIN HYPERLIPIDEMIA COPD GERD HH TOBACCO ABUSE RENAL STONES Past Surgical History CABG Reported Medications Reported Meds & Active Scripts Active Oxycodone (Oxycodone HCl) 10 Mg Tab 30 Mg PO Q6H PRN Xanax (Alprazolam) 1 Mg Tab 1 Mg PO BID Isosorbide Mononitrate ER (Isosorbide Mononitrate) 60 Mg Tab 60 Mg PO BID 30 Days Effient (Prasugrel) 10 Mg Tab 10 Mg PO DAILY Lipitor (Atorvastatin Calcium) 80 Mg Tab 80 Mg PO DAILY Aspirin 81 Mg Chew 81 Mg CHEW DAILY Ventolin Hfa 18 GM Inh (Albuterol Sulfate) 90 Mcg/Act Aer 2 Puff INH Q4-6H PRN Reported Furosemide 20 Mg Tab 20 Mg PO DAILY Gabapentin 600 Mg Tab 600 Mg PO BID Potassium Chloride ER (Potassium Chloride) 20 Meq Tab 20 Meq PO DAILY Active Ordered Medications Current Medications Medications (Trade) Dose Ordered Sig/Libby Route Start Time Stop Time Status Last Admin Potassium Chloride/Dextrose/ Sod Cl 1,000 ml @ 75 mls/hr [id number] IV 11/28/17 14:00 (NS Flush) 2 ml BID IV FLUSH 11/28/17 21:00 (NS Flush) 2 ml UNSCH PRN IV FLUSH 11/28/17 13:00 (Tylenol) 500 mg Q4H PRN PO 11/28/17 13:00 (Morphine Inj) 2 mg Q4H PRN IV PUSH 11/28/17 13:00 (Xanax) 1 mg BID PO 11/28/17 21:00 (Lipitor) 80 mg DAILY PO 11/29/17 09:00 (Lasix) 20 mg DAILY PO 11/29/17 09:00 (Imdur) 60 mg BID PO 11/28/17 21:00 (KCl) 20 meq DAILY PO 11/29/17 09:00 (Effient) 10 mg DAILY PO 11/29/17 09:00 (Ecotrin Ec) 81 mg DAILY PO 11/29/17 09:00 (Lovenox Inj) 40 mg Q24H SQ 11/28/17 15:00 Family History FATHER HAD HI Social History CIGARETTE 3/D MARIJUANA Physical Exam Vital Signs Vital Signs Date Time Temp Pulse Resp B/P (MAP) Pulse Ox O2 Delivery O2 Flow Rate FiO2 11/28/17 10:55 159/89 (112) 11/28/17 10:12 98.4 90 26 175/101 (125) 100 Room Air Physical Exam GENERAL: Well-nourished, well-developed patient. SKIN: Warm and dry. HEAD: Normocephalic. EYES: No scleral icterus. No injection or drainage. NECK: Supple, trachea midline. No JVD or lymphadenopathy. CARDIOVASCULAR: Regular rate and rhythm without murmurs, gallops, or rubs. RESPIRATORY: Breath sounds equal bilaterally. No accessory muscle use. GASTROINTESTINAL: Abdomen soft, non-tender, nondistended. EXTREMITIES: No cyanosis, or edema. NEUROLOGICAL: Awake, alert, and oriented x 3. Non-focal. Laboratory Laboratory Tests Test 11/28/17 10:35 White Blood Count 11.0 Red Blood Count 4.91 Hemoglobin 15.1 Hematocrit 44.1 Mean Corpuscular Volume 89.7 Mean Corpuscular Hemoglobin 30.7 Mean Corpuscular Hemoglobin Concent 34.2 Red Cell Distribution Width 13.9 Platelet Count 302 Mean Platelet Volume 9.0 Neutrophils (%) (Auto) 79.1 Lymphocytes (%) (Auto) 15.3 Monocytes (%) (Auto) 4.9 Eosinophils (%) (Auto) 0.3 Basophils (%) (Auto) 0.4 Neutrophils # (Auto) 8.7 Lymphocytes # (Auto) 1.7 Monocytes # (Auto) 0.5 Eosinophils # (Auto) 0.0 Basophils # (Auto) 0.0 CBC Comment DIFF FINAL Differential Comment Prothrombin Time 10.5 Prothromb Time International Ratio 1.0 Activated Partial Thromboplast Time 24.8 Blood Urea Nitrogen 12 Creatinine 1.00 Random Glucose 109 Total Protein 8.1 Albumin 4.3 Calcium Level 8.9 Magnesium Level 2.2 Alkaline Phosphatase 88 Aspartate Amino Transf (AST/SGOT) 30 Alanine Aminotransferase (ALT/SGPT) 24 Total Bilirubin 0.8 Sodium Level 139 Potassium Level 4.6 Chloride Level 107 Carbon Dioxide Level 22.5 Anion Gap 10 Estimat Glomerular Filtration Rate 76 Total Creatine Kinase 216 Creatine Kinase MB 2.8 Troponin I LESS THAN 0.02 Result Diagram: 11/28/17 1035 11/28/17 1035 Imaging Last [address] 11/28/17 1028 Signed Impressions: Service Date/Time: November 10:41 - CONCLUSION: Normal examination. Calvin Delgado MD Chest X-Ray 11/28/17 1023 Signed Impressions: Service Date/Time: November 10:38 - CONCLUSION: Normal examination. 4 intact sternal wires and clips suggesting CABG Calvin Delgado MD Assessment and Plan Problem List: (1) Chest pain ICD Codes: R07.9 - Chest pain, unspecified Plan: Known CAD with atypical chest pain, no EKG changes suggestive of ischemia , negative cardiac markers and recent negative cardiac work up for ischemia. Hx of noncompliance with medications. Uncontrolles BP. Not on GDT, start BB or ACEi. Recommendations: 1. Cardiac Enzymes x3. 2. Aggressive medical management for secondary prevention of CAD with ASA, Prasugrel, BB, ACEi, statin and nitrates 3. Telemetry 4. Smoking cessation If cardiac troponin unremarkable he can be d/c home with Cardiology f/u OPD. (2) Chronic pain ICD Codes: G89.29 - Other chronic pain Status: Chronic (3) Atypical chest pain ICD Codes: R07.89 - Other chest pain Status: Acute (4) Hypertension ICD Codes: I10 - Hypertension Status: Acute (5) Hyperlipidemia ICD Codes: E78.5 - Hyperlipidemia Status: Acute (6) COPD (chronic obstructive pulmonary disease) ICD Codes: J44.9 - Chronic obstructive pulmonary disease, unspecified Status: Chronic (7) CAD (coronary artery disease) ICD Codes: I25.10 - Atherosclerotic heart disease of solomon coronary artery without angina pectoris Status: Chronic (8) Tobacco abuse ICD Codes: Z72.0 - Tobacco use Status: Chronic Channing-Yair Dowd MD Nov 28, 2017 14:19
[2017-11-28] MEDS: MORPHINE SULFATE 2 MG/ML INJ IV PUSH PRN ×2 (14:31→16:48)
[2017-11-28] MEDS: D5-1/2 NS + KCL 20 MEQ INJ 1,000 ML IV SCH ×2 (14:32→18:24)
[2017-11-28] MEDS ORDERED: ENOXAPARIN SODIUM 40 MG/0.4 ML SYRINGE SQ SCH (15:00)
[2017-11-28 15:24] VITALS: BP 145/68; PULSE 86; RESP 17; O2SAT 97
[2017-11-28 19:41] VITALS: BP 126/81; PULSE 73; RESP 16; TEMP 98.1; O2SAT 96
[2017-11-28 20:30] VITALS: PULSE 72
--- NOTE | 2017-11-28 21:32 | EKG ---
Date Performed: 11/28/2017 Time Performed: 10:10:36 PTAGE: 62 years EKG: Sinus rhythm POSSIBLE LEFT ATRIAL ENLARGEMENT BORDERLINE ECG INTERPRETATION BASED ON A DEFAULT AGE OF 40 YEARS PREVIOUS TRACING : 11/20/2017 20.56 Since previous tracing, no significant change noted DOCTOR: Luis Sanchez Interpretating Date/Time 11/28/2017 21:30:27
[2017-11-28] MEDS: ALPRAZolam 1 MG TAB PO SCH (22:32)
[2017-11-28] MEDS: ISOSORBIDE MONONITRATE 60 MG TAB PO SCH (22:33)
[2017-11-28] MEDS: METOPROLOL TARTRATE 50 MG TAB PO SCH (22:33)
[2017-11-28] MEDS: SODIUM CHLORIDE 0.9% FLUSH 10 ML FLUSH IV FLUSH SCH (22:33)
[2017-11-29 00:30] VITALS: PULSE 76
[2017-11-29 00:45] LABS: TROPONIN I LESS THAN 0.02 NG/ML (0.02-0.05)
[2017-11-29 01:09] VITALS: BP 100/58; PULSE 74; RESP 17; TEMP 98.3; O2SAT 96
[2017-11-29 04:00] VITALS: PULSE 68
[2017-11-29 05:02] VITALS: BP 128/65; PULSE 83; RESP 16; TEMP 98.4; O2SAT 97
[2017-11-29 06:39] LABS: TRIGLYCERIDES 175 MG/DL (42-150)
[2017-11-29 06:43] LABS: CHOLESTEROL 160 MG/DL (120-200); CHOLESTEROL/ HDL RATIO 4.18 RATIO; HDL CHOLESTEROL 38.2 MG/DL (40.0-60.0); LDL CHOLESTEROL 87 MG/DL (0-99); TROPONIN I LESS THAN 0.02 NG/ML (0.02-0.05)
[2017-11-29] MEDS ORDERED: LISI10TA3 PO (07:38)
--- NOTE | 2017-11-29 07:39 | HHI.DCPOC ---
Discharge Care Plan Diagnosis: (1) CAD (coronary artery disease) (2) Hyperlipidemia (3) Tobacco abuse (4) Hypertension (5) Hyperlipidemia (6) COPD (chronic obstructive pulmonary disease) Goals to Promote Your Health * To prevent worsening of your condition and complications * To maintain your health at the optimal level Directions to Meet Your Goals Strongly advise you to please stop smoking Take your medications as prescribed Follow your dietary instruction Follow activity as directed Keep your appointments as scheduled Take your immunizations and boosters as scheduled If your symptoms worsen call your PCP, if no PCP go to Urgent Care Center or Emergency Room Smoking is Dangerous to Your Health. Avoid second hand smoke Call the 24-hour hour crisis hotline for domestic abuse at Joelle Osorio Nov 29, 2017 07:39 Lashell Kuhn MD Nov 29, 2017 19:55
[2017-11-29 07:57] VITALS: BP 119/77; PULSE 88; RESP 18; TEMP 98.7; O2SAT 97
[2017-11-29 08:00] VITALS: PULSE 74
--- NOTE | 2017-11-29 08:00 | EKG ---
Date Performed: 11/29/2017 Time Performed: 05:02:46 PTAGE: 62 years EKG: Sinus rhythm POSSIBLE INFERIOR MYOCARDIAL INFARCTION BORDERLINE ECG Compared to prior electrocardiogram, possible Inferior myocardial infarction is now present PREVIOUS TRACING : 11/28/2017 10.10 DOCTOR: Vidal Clark Interpretating Date/Time 11/29/2017 08:00:07
[2017-11-29] MEDS ORDERED: PRASUGREL 10 MG TAB PO SCH (09:00)
[2017-11-29] MEDS ORDERED: ATORVASTATIN 80 MG TAB PO SCH (09:00)
[2017-11-29] MEDS ORDERED: LISINOPRIL 10 MG TAB PO SCH (09:00)
[2017-11-29] MEDS ORDERED: FUROSEMIDE 20 MG TAB PO SCH (09:00)
[2017-11-29] MEDS ORDERED: POTASSIUM CHLORIDE 20 MEQ CONTROLLED RELEASE TAB PO SCH (09:00)
[2017-11-29] MEDS ORDERED: ASPIRIN EC 81 MG TABEC PO SCH (09:00)
--- NOTE | 2017-11-29 09:24 | HHI.PR ---
Subjective Remarks Patien tin na.d No chest pain overnight. Denies cp, sob n/v/d/c. No diaphoresis. Objective Vitals Vital Signs Date Time Temp Pulse Resp B/P (MAP) Pulse Ox O2 Delivery O2 Flow Rate FiO2 11/29/17 07:57 98.7 88 18 119/77 (91) 97 11/29/17 05:02 98.4 83 16 128/65 (86) 97 11/29/17 04:00 68 11/29/17 01:09 98.3 74 17 100/58 (72) 96 11/29/17 00:30 76 11/28/17 20:30 72 11/28/17 19:41 98.1 73 16 126/81 (96) 96 11/28/17 17:00 11/28/17 15:24 86 17 145/68 (93) 97 Room Air 11/28/17 10:55 159/89 (112) 11/28/17 10:12 98.4 90 26 175/101 (125) 100 Room Air Result Diagram: 11/28/17 1035 11/28/17 1035 Imaging Last Impressions Head CT 11/28/17 1028 Signed Impressions: Service Date/Time: November 10:41 - CONCLUSION: Normal examination. Calvin Delgado MD Chest X-Ray 11/28/17 1023 Signed Impressions: Service Date/Time: November 10:38 - CONCLUSION: Normal examination. 4 intact sternal wires and clips suggesting CABG Calvin Delgado MD Objective Remarks GENERAL: This is a well-nourished, well-developed patient, in no apparent distress. CARDIOVASCULAR: Regular rate and rhythm without murmurs, gallops, or rubs. RESPIRATORY: Clear to auscultation. Breath sounds equal bilaterally. No wheezes , rales, or rhonchi. GASTROINTESTINAL: Abdomen soft, non-tender, nondistended. No hepato-splenomegaly , or palpable masses. No guarding. MUSCULOSKELETAL: Extremities without clubbing, cyanosis, or edema. No joint tenderness, effusion, or edema noted. No calf tenderness. Negative Homans sign bilaterally. NEUROLOGICAL: Awake and alert. Cranial nerves II through XII intact. Motor and sensory grossly within normal limits. Five out of 5 muscle strength in all muscle groups. Normal speech. A/P Assessment and Plan This is a 62-year-old male with extensive cardiac history who presents to the emergency department multiple times secondary to chest pain Chest pain -Atypical and multiple admissions due to chest pain. Lasting since this morning and continue to have chest pain despite patient looking very comfortably and no changes on EKG or troponin. -Patient stated that nitroglycerin does not help chest pain. We will resume his home medication when includes beta misty, aspirin, statin, Effient, and isosorbide. Give morphine when necessary for chest pain. -Continue 2016 cardiac catheterization shows patency of vessels and nuclear stress test was negative in August 2017. -? Drug-seeking behavior. -Since patient is high risk will consult lacquer sizer for further recommendation. Will monitor over telemetry, trend cardiac enzymes, trend EKGs. Will get echo. Trops neg x 3 , seen by cardololgy Dr Snell recommends medical management. Cleared for DC to follow up as OP with cardiology Syncope -Patient comes in multiple times due to syncope. -See treatment as above to rule out any cardiac etiology. Suspecting secondary gain. Chronic back pain -ordered placed for nurse to come from her pharmacist that patient is getting medication chronically. Coronary disease/COPD/hyperlipidemia/hypertension -Resume home medication. DVT prophylaxis -Lovenox Discussed Condition With patient, nurse Discharge Planning DC home in stable condition to follow up as OP with PCP and consultants Diet healthy heart diet Meds per med reconciliations Activity ad bj as tolerated Discharge time > 30 min Lashell Kuhn MD Nov 29, 2017 09:24
[2017-11-29] MEDS: ISOSORBIDE MONONITRATE 60 MG TAB PO SCH (09:45)
[2017-11-29] MEDS: SODIUM CHLORIDE 0.9% FLUSH 10 ML FLUSH IV FLUSH SCH (09:45)
[2017-11-29] MEDS: ALPRAZolam 1 MG TAB PO SCH (09:46)
[2017-11-29] MEDS: METOPROLOL TARTRATE 50 MG TAB PO SCH (09:47)
== END 2017-11-29 14:57 | disposition home or self-care (01) ==
LOC: NEPE 10:08 → NEDA 12:42 → INTOOBSV 12:42 → NEPGCP 17:03
PROVIDERS: ADMIT Hospitalist; ATTEND Hospitalist
DX: I25.10 Atherosclerotic heart disease of native coronary artery without angina pectoris (principal); R55 Syncope and collapse; I10 Essential (primary) hypertension; E78.5 Hyperlipidemia, unspecified; J44.9 Chronic obstructive pulmonary disease, unspecified; K21.9 Gastro-esophageal reflux disease without esophagitis; M54.9 Dorsalgia, unspecified; G89.29 Other chronic pain; F17.210 Nicotine dependence, cigarettes, uncomplicated; I25.2 Old myocardial infarction; W19.XXXA Unspecified fall, initial encounter; Z95.1 Presence of aortocoronary bypass graft; Z95.5 Presence of coronary angioplasty implant and graft; Z87.442 Personal history of urinary calculi
CPT/HCPCS: 70450; 71045; 80053; 80061; 82550; 82552; 83735; 84484; 85025; 85610; 85730; 93005; 96361; 96372; 96374; 96376; 99285; G0378; J1650; J2270; J3480

== ENCOUNTER 2017-12-19 10:38 | Inpatient (IN) | payer MEDICAID ==
[~2017-12-19] VITALS: Ht 167.6 cm; Wt 66.3 kg
[~2017-12-19 10:38] MED LIST changes: -FLUT50SP NASAL; +FURO20TA PO; +LISI10TA3 PO
[2017-12-19] MEDS ORDERED: IOHEXOL 350 MG/ML 10 ML VIAL (for RAD DIAG) IVCONTRAST ONE (10:39)
[2017-12-19 11:01] VITALS: BP 137/81; PULSE 86; RESP 18; TEMP 97.9; O2SAT 98
[2017-12-19] MEDS ORDERED: ALUMINUM/MAGNESIUM/SIMETH 30 ML CUP PO ONE (11:15)
[2017-12-19] MEDS ORDERED: LIDOCAINE VISCOUS 2% SOLN 15 ML UDC PO ONE (11:15)
[2017-12-19] MEDS ORDERED: SODIUM CHLORIDE 0.9% FLUSH 10 ML FLUSH IVF PRN (11:15)
[2017-12-19] MEDS ORDERED: ONDANSETRON HCL 4 MG/2 ML VIAL IVP ONE (11:15)
[2017-12-19 11:18] VITALS: RESP 18; O2SAT 97
--- NOTE | 2017-12-19 11:33 | PD ---
HPI Chief Complaint: Chest Pain Time Seen by Provider: 11:01 Travel History International Travel<30 days: No Contact w/Intl Traveler<30days: No Traveled to known affect area: No History of Present Illness HPI Patient comes to the emergency department complaining of burning chest pain that began yesterday. Patient reports he passed out twice once yesterday and once today. Patient reports he was sitting when this occurred. Patient states that today when he passed out he fell forward hitting his head on the table. Patient complaining of a headache and neck soreness after the syncopal episode. Patient reports after the syncopal episode today that he took 2 aspirin and nitro for the chest pain with no improvement in symptoms. Patient thought this may be secondary to his heartburn reports taking his GERD medicine as prescribed. Patient reports he just flew back from [place] a couple of days ago. Patient reports pain radiates to his left upper extremity. Denies any shortness of breath, nausea, vomiting, abdominal pain, back pain, loss or change in bowel or bladder, numbness or tingling anywhere, or fevers. Reports his tetanus shot is up-to-date. PFSH Past Medical History Hx Anticoagulant Therapy: Yes (EFFIENT) Arthritis: Yes Asthma: No Autoimmune Disease: No Blood Disorders: No Anxiety: Yes Depression: Yes Heart Rhythm Problems: Yes Cancer: No Cardiac Catheterization: Yes Cardiovascular Problems: Yes High Cholesterol: Yes Chemotherapy: No Chest Pain: Yes Congestive Heart Failure: No COPD: Yes Cerebrovascular Accident: No Coronary Artery Disease: Yes Diabetes: No Diminished Hearing: No Endocrine: No Gastrointestinal Disorders: Yes GERD: Yes Genitourinary: No Headaches: No Hiatal Hernia: Yes Heparin Induced Thrombocytopen: No Hypertension: Yes Immune Disorder: No Implanted Vascular Access Dvce: Yes Kidney Stones: Yes Musculoskeletal: No Neurologic: Yes Psychiatric: Yes Reproductive: No Respiratory: Yes Immunizations Current: Yes Migraines: Yes Myocardial Infarction: Yes Radiation Therapy: No Seizures: No Sickle Cell Disease: No Sleep Apnea: No Thyroid Disease: No Ulcer: No ?: Not Past Surgical History Abdominal Surgery: No Body Medical Devices: STENTS Cardiac Surgery: Yes (CABG X2, STENTS) Coronary Artery Bypass Graft: Yes (DOUBLE BYPASS) Coronary Stent: Yes (X 7) Ear Surgery: No Endocrine Surgery: No Eye Surgery: No Genitourinary Surgery: No Gynecologic Surgery: No Neurologic Surgery: No Oral Surgery: No Thoracic Surgery: Yes (HX of CABG x 2) Other Surgery: Yes (CABG, STENTING) Family History Family Myocardial Infarction: Yes Social History Alcohol Use: No Tobacco Use: Yes (5 CIG) Substance Use: Yes (MARIJUANA) Allergies-Medications (Allergen,Severity, Reaction): Coded Allergies: ketorolac (Verified Allergy, Severe, RASH, 11/28/17) penicillin G (Verified Allergy, Unknown, Anaphylaxis, 11/28/17) Reported Meds & Prescriptions Reported Meds & Active Scripts Active Lisinopril 10 Mg Tab 10 Mg PO DAILY Oxycodone (Oxycodone HCl) 10 Mg Tab 30 Mg PO Q6H PRN Xanax (Alprazolam) 1 Mg Tab 1 Mg PO BID Isosorbide Mononitrate ER (Isosorbide Mononitrate) 60 Mg Tab 60 Mg PO BID 30 Days Effient (Prasugrel) 10 Mg Tab 10 Mg PO DAILY Lipitor (Atorvastatin Calcium) 80 Mg Tab 80 Mg PO DAILY Aspirin 81 Mg Chew 81 Mg CHEW DAILY Ventolin Hfa 18 GM Inh (Albuterol Sulfate) 90 Mcg/Act Aer 2 Puff INH Q4-6H PRN Reported Furosemide 20 Mg Tab 20 Mg PO DAILY Gabapentin 600 Mg Tab 600 Mg PO BID Potassium Chloride ER (Potassium Chloride) 20 Meq Tab 20 Meq PO DAILY Review of Systems Except as stated in HPI: all other systems reviewed are Neg Physical Exam Narrative GENERAL: Well-developed, well nourished, in no acute distress, and non-ill appearing. SKIN: Focused skin assessment warm and dry. Small hematoma right frontal lobe with small abrasion. Patient reports tenderness to palpation. No crepitus. HEAD: Atraumatic. Normocephalic. EYES: Pupils equal and round. EOMI. No scleral icterus. No injection or drainage. ENT: No nasal bleeding or discharge. Mucous membranes pink and moist. NECK: Trachea midline. No tenderness or crepitus or midline cervical spine.. Supple. No nuclear rigidity. CARDIOVASCULAR: Regular rate and rhythm. No murmur appreciated. RESPIRATORY: No accessory muscle use. No respiratory distress. Faint wheezing throughout. Breath sounds equal bilaterally. MUSCULOSKELETAL: No obvious deformities. No clubbing. No cyanosis. No edema. Full range of motion. NEUROLOGICAL: Awake and alert. No obvious cranial nerve deficits. Motor grossly within normal limits. Normal speech. PSYCHIATRIC: Appropriate mood and affect; insight and judgment normal. Data Data Last Documented VS Vital Signs Date Time Temp Pulse Resp B/P (MAP) Pulse Ox O2 Delivery O2 Flow Rate FiO2 12/19/17 12:41 78 18 127/78 (94) 99 Room Air 12/19/17 11:01 97.9 Orders Orders Electrocardiogram (12/19/17 11:11) Complete Blood Count With Diff (12/19/17 11:11) Comprehensive Metabolic Panel (12/19/17 11:11) Magnesium (Mg) (12/19/17 11:11) Ckmb (Isoenzyme) Profile (12/19/17 11:11) Troponin I (12/19/17 11:11) Act Partial Throm Time (Ptt) (12/19/17 11:11) Prothrombin Time / Inr (Pt) (12/19/17 11:11) Urinalysis - C+S If Indicated (12/19/17 11:11) Chest, Single Ap (12/19/17 11:11) Ct Brain W/O Iv Contrast(Rout) (12/19/17 11:11) Ct Cerv Spine W/O Contrast (12/19/17 11:11) Ecg Monitoring (12/19/17 11:11) Iv Access Insert/Monitor (12/19/17 11:11) Oximetry (12/19/17 11:11) Sodium Chloride 0.9% Flush (Ns Flush) (12/19/17 11:15) Orthostatic Vital Signs (12/19/17 11:11) Ct Pulmonary Angiogram (12/19/17 11:11) Drug Screen, Random Urine (12/19/17 11:11) Ondansetron Inj (Zofran Inj) (12/19/17 11:15) Al-Mag Hy-Si 40-40-4 Mg/Ml Liq (Mag-Al P (12/19/17 11:15) Lidocaine 2% Viscous (Xylocaine 2% Visco (12/19/17 11:15) CKMB (12/19/17 11:19) CKMB% (12/19/17 11:19) Sodium Chlor 0.9% 1000 Ml Inj (Ns 1000 M (12/19/17 12:45) Iohexol 350 Inj (Omnipaque 350 Inj) (12/19/17 10:39) Acetaminophen (Tylenol) (12/19/17 13:45) Morphine Inj (Morphine Inj) (12/19/17 13:45) Heparin Inj (Heparin Inj) (12/19/17 13:45) Heparin-D5w 25,000 U/250 Ml (Heparin-D5w (12/19/17 13:45) Act Partial Throm Time (Ptt) (12/19/17 13:41) Prothrombin Time / Inr (Pt) (12/19/17 13:41) Cbc No Diff, Includes Plts (12/19/17 13:41) Cbc No Diff, Includes Plts (12/22/17 06:00) Act Partial Throm Time (Ptt) (12/19/17 20:41) Occult Blood (Hemoccult) Stool (12/19/17 13:41) Admit Order (Ed Use Only) (12/19/17 ) Manager Insurance / Telemetry PONCE.Q8H (12/19/17 14:48) Vital Signs (Adult) Q4H (12/19/17 14:48) Activity Oob With Assistance (12/19/17 14:48) Notify Dr: Other (12/19/17 14:48) Labs Laboratory Tests Test 12/19/17 11:19 12/19/17 12:43 12/19/17 14:04 White Blood Count 11.4 TH/MM3 Red Blood Count 5.39 MIL/MM3 Hemoglobin 16.4 GM/DL Hematocrit 47.8 % Mean Corpuscular Volume 88.6 FL Mean Corpuscular Hemoglobin 30.4 PG Mean Corpuscular Hemoglobin Concent 34.3 % Red Cell Distribution Width 14.2 % Platelet Count 314 TH/MM3 Mean Platelet Volume 8.8 FL Neutrophils (%) (Auto) 78.7 % Lymphocytes (%) (Auto) 15.0 % Monocytes (%) (Auto) 5.2 % Eosinophils (%) (Auto) 0.6 % Basophils (%) (Auto) 0.5 % Neutrophils # (Auto) 9.0 TH/MM3 Lymphocytes # (Auto) 1.7 TH/MM3 Monocytes # (Auto) 0.6 TH/MM3 Eosinophils # (Auto) 0.1 TH/MM3 Basophils # (Auto) 0.1 TH/MM3 CBC Comment DIFF FINAL Differential Comment Prothrombin Time 10.0 SEC 10.4 SEC Prothromb Time International Ratio 1.0 RATIO 1.0 RATIO Activated Partial Thromboplast Time 25.9 SEC 26.8 SEC Blood Urea Nitrogen 23 MG/DL Creatinine 1.08 MG/DL Random Glucose 106 MG/DL Total Protein 8.0 GM/DL Albumin 4.3 GM/DL Calcium Level 9.4 MG/DL Magnesium Level 2.2 MG/DL Alkaline Phosphatase 96 U/L Aspartate Amino Transf (AST/SGOT) 12 U/L Alanine Aminotransferase (ALT/SGPT) 19 U/L Total Bilirubin 0.5 MG/DL Sodium Level 137 MEQ/L Potassium Level 4.1 MEQ/L Chloride Level 102 MEQ/L Carbon Dioxide Level 28.6 MEQ/L Anion Gap 6 MEQ/L Estimat Glomerular Filtration Rate 70 ML/MIN Total Creatine Kinase 105 U/L Creatine Kinase MB 2.6 NG/ML Troponin I LESS THAN 0.02 NG/ML Urine Color YELLOW Urine Turbidity CLEAR Urine pH 6.0 Urine Specific [place] 1.019 Urine Protein NEG mg/dL Urine Glucose (UA) NEG mg/dL Urine Ketones NEG mg/dL Urine Occult Blood TRACE Urine Nitrite NEG Urine Bilirubin NEG Urine Urobilinogen LESS THAN 2.0 MG/DL Urine Leukocyte Esterase NEG Urine RBC 1 /hpf Urine WBC 1 /hpf Urine Mucus FEW /lpf Microscopic Urinalysis Comment CULT NOT INDICATED Urine Opiates Screen NEG Urine Barbiturates Screen NEG Urine Amphetamines Screen NEG Urine Benzodiazepines Screen NEG Urine Cocaine Screen NEG Urine Cannabinoids Screen NEG MDM Medical Decision Making Medical Screen Exam Complete: Yes Emergency Medical Condition: Yes Interpretation(s) Last Impressions Head CT 12/19/17 1111 Signed Impressions: Service Date/Time: December 12:53 - CONCLUSION: No acute intracranial disease. Abe Maldonado MD Chest X-Ray 12/19/17 1111 Signed Impressions: Service Date/Time: December 11:20 - CONCLUSION: The lungs are clear. Boom Park MD Cervical Spine CT 12/19/17 1111 Signed Impressions: Service Date/Time: December 12:53 - CONCLUSION: 1. No acute fracture or prevertebral soft tissue swelling. 2. Diffuse cervical spondylosis. 3. Stable bilateral foraminal narrowing from C3 through T1. 4. Grade I anterolisthesis of C3 in relation to C4. 5. Scoliosis of the cervical spine. 6. Scattered emphysematous changes within the lung apices. 7. Air is noted within the marrow of the posterior medial right first rib. Abe Maldonado MD CT Angiography 12/19/17 1111 Signed Impressions: Service Date/Time: December 13:01 - CONCLUSION: 1. Small segmental emboli within the right upper and middle lobe pulmonary artery branches. 2. Stable centrilobular emphysema. 3. Focal scarring within the lateral aspect of the right lower lobe. 4. Coronary artery calcifications. Abe Maldonado MD Differential Diagnosis Acute coronary syndrome, pneumonia, pneumothorax, PE, metabolic disturbance, angina, unstable angina Narrative Course Patient was seen and examined. IV was established and patient was placed on continuous cardiac monitoring. Initial laboratory and radiological studies were ordered. Patient was given a dose of Tylenol and morphine for pain. Upon CT results patient was started on heparin drip. Discussed patient with Dr. Castro, who is in agreement with plan of care and disposition. Discussed all findings and plan of care with patient, who is agreeable for admission. All questions were answered. Discussed patient with hospitalist who is agreeable to admit the patient. Patient remained stable throughout ED course Physician Communication Physician Communication [phone] Baltazar, who is agreeable to admit the patient. Diagnosis Primary Impression: Pulmonary embolism Qualified Codes: I26.99 - Other pulmonary embolism without acute cor pulmonale Admitting Information Admitting Physician Requests: Admit Condition: Stable Ethan Abarca Dec 19, 2017 11:29
[2017-12-19 11:57] LABS: BASOPHIL # 0.1 TH/MM3 (0-0.2); BASOPHIL % 0.5 % (0.0-2.0); EOSINOPHIL # 0.1 TH/MM3 (0-0.4); EOSINOPHIL % 0.6 % (0.0-4.0); HEMATOCRIT 47.8 % (39.0-51.0); HEMOGLOBIN 16.4 GM/DL (13.0-17.0); LYMPHOCYTE # 1.7 TH/MM3 (1.0-4.8); MEAN CELL VOLUME 88.6 FL (80.0-100.0); MEAN CORPUSCULAR HEMOGLOBIN 30.4 PG (27.0-34.0); MEAN CORPUSCULAR HGB CONC 34.3 % (32.0-36.0); MEAN PLATELET VOLUME 8.8 FL (7.0-11.0); MONO % 5.2 % (0.0-8.0); MONOCYTE # 0.6 TH/MM3 (0-0.9); NEUT % 78.7 % (16.0-70.0); PLATELET COUNT 314 TH/MM3 (150-450); RED BLOOD COUNT 5.39 MIL/MM3 (4.50-5.90); RED CELL DISTRIBUTION WIDTH 14.2 % (11.6-17.2); WHITE BLOOD COUNT 11.4 TH/MM3 (4.0-11.0)
--- NOTE | 2017-12-19 12:06 | RADRPT ---
EXAM DATE/TIME: 12/19/2017 11:20 [facility] COMPARISON: CHEST SINGLE AP, November 28, 2017, 10:38. INDICATIONS : Chest pain. MEDICAL HISTORY : Myocardial infarction. Chronic obstructive pulmonary disease. Hypertension. SURGICAL HISTORY : CABG. Coronary artery stent. ENCOUNTER: Initial ACUITY: 3 days PAIN SCORE: 10/10 LOCATION: Left upper chest FINDINGS: A single view of the chest demonstrates the lungs to be symmetrically aerated without evidence of mas s, infiltrate or effusion. No evidence of pneumothorax. The cardiomediastinal contours are unremarka ble. Osseous structures are intact. Intact sternal wire sutures. CONCLUSION: The lungs are clear. Boom Park MD on December 19, 2017 at 12:00 Board Certified Radiologist. This report was verified electronically.
[2017-12-19 12:23] LABS: ALBUMIN 4.3 GM/DL (3.4-5.0); AST (GOT) 12 U/L (15-37); BICARBONATE 28.6 MEQ/L (21.0-32.0); BLOOD UREA NITROGEN 23 MG/DL (7-18); CALCIUM 9.4 MG/DL (8.5-10.1); CHLORIDE 102 MEQ/L (98-107); CREATININE 1.08 MG/DL (0.60-1.30); GLOMERULAR FILTRATION RATE 70 ML/MIN (>89); GLUCOSE,RANDOM 106 MG/DL (74-106); MAGNESIUM 2.2 MG/DL (1.5-2.5); SODIUM (NA) 137 MEQ/L (136-145)
[2017-12-19 12:25] LABS: ALT (GPT) 19 U/L (12-78)
[2017-12-19 12:29] LABS: ALKALINE PHOSPHATASE 96 U/L (45-117); TOTAL BILIRUBIN ADULT 0.5 MG/DL (0.2-1.0); TROPONIN I LESS THAN 0.02 NG/ML (0.02-0.05)
[2017-12-19 12:41] VITALS: BP_SYST 117; BP_SYST 127; BP_SYST 130; BP_DIAS 78; BP_DIAS 80; BP_DIAS 83; PULSE 78; RESP 18; RESP 20; RESP 22; RESP 26; O2SAT 99
[2017-12-19] MEDS ORDERED: SODIUM CHLOR 0.9% 1000 ML INJ 1,000 ML IV ONE (12:45)
[2017-12-19 13:08] LABS: BILIRUBIN, URINE NEG (NEG); BLOOD, URINE TRACE (NEG); GLUCOSE,URINE NEG (NEG); KETONE, URINE NEG (NEG); MUCUS URINE FEW /lpf (OCC); NITRITE,URINE NEG (NEG); URINE COLOR YELLOW (YELLW/STRAW); URINE LEUKOCYTE ESTERASE NEG (NEG)
--- NOTE | 2017-12-19 13:14 | RADRPT ---
EXAM DATE/TIME: 12/19/2017 12:53 [facility] COMPARISON: CT BRAIN W/O CONTRAST, November 28, 2017, 10:41. INDICATIONS : Syncope RADIATION DOSE: 51.21 CTDIvol (mGy) MEDICAL HISTORY : Cardiovascular disease. Chronic obstructive pulmonary disease. Hernia, hiatal. Hypertension SURGICAL HISTORY : CABG ENCOUNTER: Initial ACUITY: 1 day PAIN SCALE: 7/10 LOCATION: cranial TECHNIQUE: Multiple contiguous axial images were obtained of the head. Using automated exposure control and adj ustment of the mA and/or kV according to patient size, radiation dose was kept as low as reasonably a chievable to obtain optimal diagnostic quality images. DICOM format image data is available electro nically for review and comparison. FINDINGS: CEREBRUM: The ventricles are normal for age. No evidence of midline shift, mass lesion, hemorrhage or acute in farction. No extra-axial fluid collections are seen. POSTERIOR FOSSA: The cerebellum and brainstem are intact. The 4th ventricle is midline. The cerebellopontine angle i s unremarkable. EXTRACRANIAL: The visualized portion of the orbits is intact. Nasal bone fractures are again noted and stable. SKULL: The calvaria is intact. No evidence of skull fracture. CONCLUSION: No acute intracranial disease. Abe Maldonado MD on December 19, 2017 at 13:11 Board Certified Radiologist. This report was verified electronically.
--- NOTE | 2017-12-19 13:36 | RADRPT ---
EXAM DATE/TIME: 12/19/2017 13:01 This report includes an Addendum and supersedes previous reports for this exam. [facility] COMPARISON: CT PULMONARY ANGIOGRAM, January 22, 2017, 15:04. INDICATIONS : Chest pain, syncope IV CONTRAST: 60 cc Omnipaque 350 (iohexol) IV RADIATION DOSE: 9.85 CTDIvol (mGy) MEDICAL HISTORY : Chronic obstructive pulmonary disease. Hernia, hiatal. Cardiovascular disease. Hypertension SURGICAL HISTORY : CABG ENCOUNTER: Initial ACUITY: 1 day PAIN SCALE: 7/10 LOCATION: chest TECHNIQUE: Volumetric scanning of the chest was performed using a pulmonary embolism protocol MIP images were re constructed. Using automated exposure control and adjustment of the mA and/or kV according to patien t size, radiation dose was kept as low as reasonably achievable to obtain optimal diagnostic quality images. DICOM format image data is available electronically for review and comparison. Follow-up recommendations for detected pulmonary nodules are based at a minimum on nodule size and pa tient risk factors according to Fleischner Society Guidelines. FINDINGS: PULMONARY ARTERIES: Small segmental pulmonary emboli are noted within the right upper and middle lobes. No pulmonary line are identified within the left lung. LUNGS: Centrilobular emphysema is again noted bilaterally. Focal scarring is noted within the right lateral lung base. There is no consolidation or pneumothorax . No concerning pulmonary nodule is visualized. PLEURAE: There is no pleural thickening or pleural effusion. MEDIASTINUM: There is good visualization of the great vessels of the middle mediastinum. No evidence of mediastin al or hilar adenopathy/mass. Coronary artery calcifications are noted. MUSCULOSKELETAL: Within normal limits for patient age. MISCELLANEOUS: The visualized upper abdominal organs demonstrate no acute abnormality. CONCLUSION: 1. Small segmental emboli within the right upper and middle lobe pulmonary artery branches. 2. Stable centrilobular emphysema. 3. Focal scarring within the lateral aspect of the right lower lobe. 4. Coronary artery calcifications. Abe Maldonado MD on December 19, 2017 at 13:25 Board Certified Radiologist. This report was verified electronically. ADDENDUM: I reviewed the CT pulmonary angiogram on 12/19/[address] Ramsay. 2 small apparent filling defects are seen on series 4 images 50 and 51 associated with moderate artifact from bolus in the superior vena cava. Venous Doppler of enlarged images negative. Index of suspicion is low This may well be artifact. Ventilation/perfusion scan will be obtained tonight to ascertain whether this is artifact or clot. Bill San MD FACR on December 20, 2017 at 17:54 Board Certified Radiologist. This report was verified electronically.
[2017-12-19] MEDS ORDERED: MORPHINE SULFATE 2 MG/ML INJ IV PUSH ONE (13:45)
[2017-12-19] MEDS ORDERED: ACETAMINOPHEN 325 MG TAB PO ONE (13:45)
[2017-12-19] MEDS ORDERED: HEPARIN SODIUM - IV 10,000 UNITS/10 ML VIAL IV ONE (13:45)
[2017-12-19 14:51] LABS: PROTHROMBIN TIME - PATIENT 10.4 SEC (9.8-11.6)
[2017-12-19] MEDS: HEPARIN-D5W 25,000 U/250 ML 250 ML IV PRN (15:16)
[2017-12-19 16:00] VITALS: BP 136/85; PULSE 71; RESP 20; TEMP 98.7; O2SAT 99
--- NOTE | 2017-12-19 16:03 | RADRPT ---
EXAM DATE/TIME: 12/19/2017 12:53 [facility] COMPARISON: CT CERVICAL SPINE W/O CONTRAST, March 26, 2017, 8:05. INDICATIONS : Syncopal episode,hit head RADIATION DOSE: 18.85 CTDIvol (mGy) MEDICAL HISTORY : Cardiovascular disease. Hernia, hiatal. Chronic obstructive pulmonary disease.Hypertension SURGICAL HISTORY : CABG ENCOUNTER: Initial ACUITY: 1 day PAIN SCALE: 7/10 LOCATION: neck TECHNIQUE: Volumetric scanning of the cervical spine was performed. Multiplanar reconstructions in the sagittal, coronal and oblique axial planes were performed. Using automated exposure control and adjustment o f the mA and/or kV according to patient size, radiation dose was kept as low as reasonably achievable to obtain optimal diagnostic quality images. DICOM format image data is available electronically f or review and comparison. FINDINGS: There is grade I anterolisthesis of C3 in relation to C4. Diffuse cervical spondylosis is noted from C3-T1. No acute fracture or prevertebral soft tissue swelling is noted. The bony relationship and ali gnment between C1 and C2 is well maintained. Bilateral foraminal narrowing is noted from C3 through T 1 and is stable. No spinal stenosis is noted. Scoliosis of the cervical spine is noted. Air is noted within the marrow of the posterior medial aspect of the right first rib Scattered emphysematous arnold es are noted within the lung apices. CONCLUSION: 1. No acute fracture or prevertebral soft tissue swelling. 2. Diffuse cervical spondylosis. 3. Stable bilateral foraminal narrowing from C3 through T1. 4. Grade I anterolisthesis of C3 in relation to C4. 5. Scoliosis of the cervical spine. 6. Scattered emphysematous changes within the lung apices. 7. Air is noted within the marrow of the posterior medial right first rib. Abe Maldonado MD on December 19, 2017 at 15:54 Board Certified Radiologist. This report was verified electronically.
[2017-12-19] MEDS ORDERED: MAGNESIUM HYDROXIDE SUSP 30 ML CUP PO PRN (16:30)
[2017-12-19] MEDS ORDERED: ACETAMINOPHEN 325 MG TAB PO PRN (16:30)
[2017-12-19] MEDS ORDERED: BISACODYL 10 MG SUPP RECTAL PRN (16:30)
[2017-12-19] MEDS ORDERED: SODIUM CHLORIDE 0.9% FLUSH 10 ML FLUSH IV FLUSH PRN (16:30)
[2017-12-19] MEDS ORDERED: NALOXONE HCL 0.4 MG/ML AMP IV PUSH PRN (16:30)
[2017-12-19] MEDS ORDERED: LACTULOSE SYRUP 20 GM/30 ML CUP PO PRN (16:30)
[2017-12-19] MEDS ORDERED: SENNOSIDES 8.6 MG TAB PO PRN (16:30)
[2017-12-19 17:12] VITALS: PULSE 69
[2017-12-19] MEDS ORDERED: ALBUTEROL SULFATE 90 MCG/ACT HFA 8 GM INHALER INH PRN (17:45)
[2017-12-19 19:11] LABS: TROPONIN I LESS THAN 0.02 NG/ML (0.02-0.05)
[2017-12-19 19:19] LABS: HEMATOCRIT 46.5 % (39.0-51.0); HEMOGLOBIN 15.8 GM/DL (13.0-17.0); MEAN CELL VOLUME 87.9 FL (80.0-100.0); MEAN CORPUSCULAR HEMOGLOBIN 29.9 PG (27.0-34.0); MEAN CORPUSCULAR HGB CONC 34.1 % (32.0-36.0); MEAN PLATELET VOLUME 8.8 FL (7.0-11.0); PLATELET COUNT 296 TH/MM3 (150-450); RED BLOOD COUNT 5.29 MIL/MM3 (4.50-5.90); RED CELL DISTRIBUTION WIDTH 14.2 % (11.6-17.2); WHITE BLOOD COUNT 12.7 TH/MM3 (4.0-11.0)
--- NOTE | 2017-12-19 19:49 | HHI.HP ---
[facility] Jaren Talam[facility] III, MD Admission Diagnosis Pulmonary embolism Diagnoses: Chief Complaint: Chest pain Travel History International Travel<30 Days: No Contact w/Intl Traveler <30 Da: No Traveled to Known Affected Are: No History of Present Illness This is a 62-year-old male with past medical history significant for CAD status post CABG and stents currently on Effient and aspirin. The patient states that he ran out of his Effient and aspirin 5 days ago. He states that yesterday he started experiencing chest pain which initially was at the burning sensation which later turned into a dull pain, described as pleuritic, worse with movement and associated with shortness of breath, palpitations, diaphoresis and nausea today. The patient presented to the ED thinking that he might have been expressing a heart attack. Patient states that he passed out falling forward hitting his head on the table. As per ED documentation the patient was complaining of headache and neck soreness after a syncopal episode. Patient states he took 2 aspirin and nitro for chest pain with no improvement of symptoms. Patient states he attributed these burning pain to GERD however reports taking his medications for reflux as prescribed. The patient states that he just flew back from [place] couple days ago. Patient reports a pain which is nonradiating, ED documentation states that he was complaining of radiating chest pain to the left upper extremity. The patient complains of shortness of breath on exertion, nausea, denies vomiting, abdominal pain, back pain, dysuria. Review of Systems As per HPI, other systems reviewed by me negative. Past Family Social History Past Medical History CAD CABG X 2 STENT HTN BACK PAIN HYPERLIPIDEMIA COPD GERD HH TOBACCO ABUSE RENAL STONES Past Surgical History CABG Multiple stent placement. Reported Medications Reported Meds & Active Scripts Active Lisinopril 10 Mg Tab 10 Mg PO DAILY Oxycodone (Oxycodone HCl) 10 Mg Tab 30 Mg PO Q6H PRN Xanax (Alprazolam) 1 Mg Tab 1 Mg PO BID Isosorbide Mononitrate ER (Isosorbide Mononitrate) 60 Mg Tab 60 Mg PO BID 30 Days Effient (Prasugrel) 10 Mg Tab 10 Mg PO DAILY Lipitor (Atorvastatin Calcium) 80 Mg Tab 80 Mg PO DAILY Aspirin 81 Mg Chew 81 Mg CHEW DAILY Ventolin Hfa 18 GM Inh (Albuterol Sulfate) 90 Mcg/Act Aer 2 Puff INH Q4-6H PRN Reported Furosemide 20 Mg Tab 20 Mg PO DAILY Gabapentin 600 Mg Tab 600 Mg PO BID Potassium Chloride ER (Potassium Chloride) 20 Meq Tab 20 Meq PO DAILY Allergies: Coded Allergies: ketorolac (Verified Allergy, Severe, RASH, 11/28/17) penicillin G (Verified Allergy, Unknown, Anaphylaxis, 11/28/17) Active Ordered Medications Current Medications Medications (Trade) Dose Ordered Sig/Libby Route Start Time Stop Time Status Last Admin Heparin Sodium/ Dextrose 250 ml @ 12 mls/hr TITRATE PRN IV 12/19/17 13:45 12/19/17 15:16 (NS Flush) 2 ml UNSCH PRN IV FLUSH 12/19/17 16:30 (NS Flush) 2 ml BID IV FLUSH 12/19/17 21:00 (Tylenol) 650 mg Q4H PRN PO 12/19/17 16:30 (Zofran Inj) 4 mg Q6H PRN IVP 12/19/17 16:30 (Narcan Inj) 0.4 mg UNSCH PRN IV PUSH 12/19/17 16:30 (Melissa-Colace) 1 tab BID PO 12/19/17 21:00 (Milk Of Magnesia Liq) 30 ml Q12H PRN PO 12/19/17 16:30 (Senokot) 17.2 mg Q12H PRN PO 12/19/17 16:30 (Dulcolax Supp) 10 mg DAILY PRN RECTAL 12/19/17 16:30 (Lactulose Liq) 30 ml DAILY PRN PO 12/19/17 16:30 (Proair Hfa Inh) 2 puff Q4H PRN INH 12/19/17 17:45 (Xanax) 1 mg BID PO 12/19/17 21:00 (Lipitor) 80 mg DAILY PO 12/20/17 09:00 (Neurontin) 600 mg BID PO 12/19/17 21:00 (Imdur) 60 mg BID@0900,1800 PO 12/19/17 21:00 (Prinivil) 10 mg DAILY PO 12/20/17 09:00 (Roxicodone) 30 mg Q6H PRN PO 12/19/17 17:45 12/19/17 18:39 (Effient) 10 mg DAILY PO 12/20/17 09:00 Family History Multiple sisters, father, brothers, nephew had MIs. Social History Smokes 5 cigarettes per day at a very young age. Denies any alcohol or illicit drug use. Physical Exam Vital Signs Vital Signs Date Time Temp Pulse Resp B/P (MAP) Pulse Ox O2 Delivery O2 Flow Rate FiO2 12/19/17 17:12 69 12/19/17 16:00 98.7 71 20 136/85 (102) 99 12/19/17 12:41 78 18 127/78 (94) 99 Room Air 12/19/17 12:41 78 20 117/80 (92) 18 22 130/83 (99) 84 26 127/78 (94) 12/19/17 11:18 18 97 Room Air 12/19/17 11:02 88 18 98 Room Air 12/19/17 11:01 97.9 86 18 137/81 (99) 98 Room Air Physical Exam GENERAL: This is a well-nourished, well-developed patient, in no apparent distress. SKIN: No rashes, ecchymoses or lesions. Cool and dry. HEAD: Atraumatic. Normocephalic. No temporal or scalp tenderness. EYES: Pupils equal round and reactive. Extraocular motions intact. No scleral icterus. No injection or drainage. ENT: Nose without bleeding, purulent drainage or septal hematoma. Throat without erythema, tonsillar hypertrophy or exudate. Uvula midline. Airway patent. NECK: Trachea midline. No JVD or lymphadenopathy. Supple, nontender, no meningeal signs. CARDIOVASCULAR: Regular rate and rhythm without murmurs, gallops, or rubs. RESPIRATORY: Clear to auscultation. Breath sounds equal bilaterally. No wheezes , rales, or rhonchi. GASTROINTESTINAL: Abdomen soft, non-tender, nondistended. No hepato-splenomegaly , or palpable masses. No guarding. MUSCULOSKELETAL: Extremities without clubbing, cyanosis, or edema. No joint tenderness, effusion, or edema noted. No calf tenderness. Negative Homans sign bilaterally. NEUROLOGICAL: Awake and alert. Cranial nerves II through XII intact. Motor and sensory grossly within normal limits. Five out of 5 muscle strength in all muscle groups. Normal speech. Laboratory Laboratory Tests Test 12/19/17 11:19 12/19/17 12:43 12/19/17 14:04 12/19/17 18:36 White Blood Count 11.4 12.7 Red Blood Count 5.39 5.29 Hemoglobin 16.4 15.8 Hematocrit 47.8 46.5 Mean Corpuscular Volume 88.6 87.9 Mean Corpuscular Hemoglobin 30.4 29.9 Mean Corpuscular Hemoglobin Concent 34.3 34.1 Red Cell Distribution Width 14.2 14.2 Platelet Count 314 296 Mean Platelet Volume 8.8 8.8 Neutrophils (%) (Auto) 78.7 Lymphocytes (%) (Auto) 15.0 Monocytes (%) (Auto) 5.2 Eosinophils (%) (Auto) 0.6 Basophils (%) (Auto) 0.5 Neutrophils # (Auto) 9.0 Lymphocytes # (Auto) 1.7 Monocytes # (Auto) 0.6 Eosinophils # (Auto) 0.1 Basophils # (Auto) 0.1 CBC Comment DIFF FINAL Differential Comment Prothrombin Time 10.0 10.4 Prothromb Time International Ratio 1.0 1.0 Activated Partial Thromboplast Time 25.9 26.8 Blood Urea Nitrogen 23 Creatinine 1.08 Random Glucose 106 Total Protein 8.0 Albumin 4.3 Calcium Level 9.4 Magnesium Level 2.2 Alkaline Phosphatase 96 Aspartate Amino Transf (AST/SGOT) 12 Alanine Aminotransferase (ALT/SGPT) 19 Total Bilirubin 0.5 Sodium Level 137 Potassium Level 4.1 Chloride Level 102 Carbon Dioxide Level 28.6 Anion Gap 6 Estimat Glomerular Filtration Rate 70 Total Creatine Kinase 105 82 Creatine Kinase MB 2.6 Troponin I LESS THAN 0.02 LESS THAN 0.02 Urine Color YELLOW Urine Turbidity CLEAR Urine pH 6.0 Urine Specific [place] 1.019 Urine Protein NEG Urine Glucose (UA) NEG Urine Ketones NEG Urine Occult Blood TRACE Urine Nitrite NEG Urine Bilirubin NEG Urine Urobilinogen LESS THAN 2.0 Urine Leukocyte Esterase NEG Urine RBC 1 Urine WBC 1 Urine Mucus FEW Microscopic Urinalysis Comment CULT NOT INDICATED Urine Opiates Screen NEG Urine Barbiturates Screen NEG Urine Amphetamines Screen NEG Urine Benzodiazepines Screen NEG Urine Cocaine Screen NEG Urine Cannabinoids Screen NEG Result Diagram: 12/19/17 1836 12/19/17 1119 Caprini VTE Risk Assessment Caprini VTE Risk Assessment: Mod/High Risk (score >= 2) Caprini Risk Assessment Model Point Value = 1 Point Value = 2 Point Value = 3 Point Value = 5 Age 41-60 Minor surgery BMI > 25 kg/m2 Swollen legs Varicose veins or History of unexplained or recurrent spontaneous Oral contraceptives or hormone replacement Sepsis (< 1 month) Serious lung disease, including pneumonia (< 1 month) Abnormal pulmonary function Acute myocardial infarction Congestive heart failure (< 1 month) History of inflammatory bowel disease Medical patient at bed rest Age 61-74 Arthroscopic surgery Major open surgery (> 45 min) Laparoscopic surgery (> 45 min) Malignancy Confined to bed (> 72 hours) Immobilizing plaster cast Central venous access Age >= 75 History of VTE Family history of VTE Factor V Leiden Prothrombin [id number] Lupus anticoagulant Anticardiolipin antibodies Elevated serum homocysteine Heparin-induced thrombocytopenia Other congenital or acquired thrombophilia Stroke (< 1 month) Elective arthroplasty Hip, pelvis, or leg fracture Acute spinal cord injury (< 1 month) Prophylaxis Regimen Total Risk Factor Score Risk Level Prophylaxis Regimen 0-1 Low Early ambulation 2 Moderate Order ONE of the following: *Sequential Compression Device (SCD) *Heparin 5000 units SQ BID 3-4 Higher Order ONE of the following medications: *Heparin 5000 units SQ TID *Enoxaparin/Lovenox 40 mg SQ daily (WT < 150 kg, CrCl > 30 mL/min) *Enoxaparin/Lovenox 30 mg SQ daily (WT < 150 kg, CrCl > 10-29 mL/min) *Enoxaparin/Lovenox 30 mg SQ BID (WT < 150 kg, CrCl > 30 mL/min) AND/OR *Sequential Compression Device (SCD) 5 or more Highest Order ONE of the following medications: *Heparin 5000 units SQ TID (Preferred with Epidurals) *Enoxaparin/Lovenox 40 mg SQ daily (WT < 150 kg, CrCl > 30 mL/min) *Enoxaparin/Lovenox 30 mg SQ daily (WT < 150 kg, CrCl > 10-29 mL/min) *Enoxaparin/Lovenox 30 mg SQ BID (WT < 150 kg, CrCl > 30 mL/min) AND *Sequential Compression Device (SCD) Assessment and Plan Problem List: (1) Pulmonary embolism ICD Code: I26.99 - Other pulmonary embolism without acute cor pulmonale Plan: Admit the patient to the medical floor. CT pulmonary angiogram as described above showed a small segmental emboli within the right upper and middle lobe pulmonary artery branches. Stable centrilobular emphysema. Focal scarring within the lateral aspect of the right lower lobe. Coronary artery calcifications. Patient is on IV heparin drip in the emergency department I will continue. We will check a 2D echocardiogram. Consult hematology for recommendations on anticoagulation given the patient is also on Effient and aspirin. (2) Pleuritic chest pain ICD Code: R07.81 - Pleurodynia Plan: Pleuritic chest pain likely secondary to pulmonary emboli. Continue home pain medications. I will also order morphine as needed for chest pain. (3) CAD (coronary artery disease) ICD Code: I25.10 - Atherosclerotic heart disease of [place] coronary artery without angina pectoris Status: Chronic Plan: Patient complains of chest pain, however troponins have been negative 2. EKG reviewed by me shows sinus rhythm without any significant ST-T changes. We will consult cardiology to provide recommendations regarding Effient and aspirin in the setting were possibly another anticoagulant will be needed. (4) COPD (chronic obstructive pulmonary disease) ICD Code: J44.9 - Chronic obstructive pulmonary disease, unspecified Status: Chronic Plan: Not an exacerbation. Will place on DuoNeb's as needed. (5) Hyperlipidemia ICD Code: E78.5 - Hyperlipidemia, unspecified Status: Chronic Plan: Continue statin (6) Hypertension ICD Code: I10 - Hypertension Status: Acute (7) Syncope ICD Code: R55 - Syncope and collapse Status: Acute Plan: Patient has had multiple episodes of syncope. In this opportunity I believe the syncope is related to the pulmonary embolism. Cardiology consulted follow-up recommendations. Assessment and Plan GI prophylaxis: We will place on Protonix. DVT prophylaxis: SCDs, the patient on heparin drip, Effient and aspirin. Code Status Full code Discussed Condition With Patient, ED physician. Physician Certification 2 Midnight Certification Type: Admission for Inpatient Services Order for Inpatient Services The services are ordered in accordance with Medicare regulations or non- Medicare payer requirements, as applicable. In the case of services not specified as inpatient-only, they are appropriately provided as inpatient services in accordance with the 2-midnight benchmark. Estimated LOS (days): 2 days is the estimated time the patient will need to remain in the hospital, assuming treatment plan goals are met and no additional complications. Post-Hospital Plan: Home Problem Qualifiers (1) Pulmonary embolism: (2) CAD (coronary artery disease): Qualified Codes: I25.10 - Atherosclerotic heart disease of [place] coronary artery without angina pectoris (3) Hyperlipidemia: Qualified Codes: E78.5 - Hyperlipidemia, unspecified (4) Hypertension: Qualified Codes: I10 - Essential (primary) hypertension Praveen Matthews MD Dec 19, 2017 19:49
[2017-12-19 20:00] VITALS: BP 131/76; PULSE 75; RESP 19; TEMP 97.8; O2SAT 95
[2017-12-19] MEDS: DOCUSATE SODIUM 50 MG/SENNA 8.6 MG TAB PO SCH (21:00)
[2017-12-19] MEDS: SODIUM CHLORIDE 0.9% FLUSH 10 ML FLUSH IV FLUSH SCH (21:00)
[2017-12-19] MEDS: ISOSORBIDE MONONITRATE 60 MG TAB PO SCH (21:55)
[2017-12-19] MEDS: GABAPENTIN 300 MG CAP PO SCH (21:56)
[2017-12-19] MEDS: ALPRAZolam 1 MG TAB PO SCH (21:56)
[2017-12-20] VITALS (10 sets, daily range): BP systolic 107–138; BP diastolic 59–78; PULSE 68–92; RESP 14–18; TEMP 97.2–98; O2SAT 94–97
[2017-12-20 01:04] LABS: TROPONIN I LESS THAN 0.02 NG/ML (0.02-0.05)
[2017-12-20 04:24] LABS: ALBUMIN 3.4 GM/DL (3.4-5.0); ALKALINE PHOSPHATASE 78 U/L (45-117); ALT (GPT) 16 U/L (12-78); AST (GOT) 13 U/L (15-37); BICARBONATE 31.2 MEQ/L (21.0-32.0); BLOOD UREA NITROGEN 17 MG/DL (7-18); CALCIUM 8.5 MG/DL (8.5-10.1); CHLORIDE 105 MEQ/L (98-107); CREATININE 1.04 MG/DL (0.60-1.30); GLOMERULAR FILTRATION RATE 73 ML/MIN (>89); GLUCOSE,RANDOM 109 MG/DL (74-106); SODIUM (NA) 141 MEQ/L (136-145); TOTAL BILIRUBIN ADULT 0.3 MG/DL (0.2-1.0); TOTAL PROTEIN 6.5 GM/DL (6.4-8.2)
[2017-12-20] MEDS: ONDANSETRON HCL 4 MG/2 ML VIAL IVP PRN ×2 (05:51→16:29)
[2017-12-20] MEDS: SODIUM CHLORIDE 0.9% FLUSH 10 ML FLUSH IV FLUSH SCH ×2 (06:54→21:00)
--- NOTE | 2017-12-20 08:04 | PD.CONS ---
HPI Service cardiology Consult Requested By Reason for Consult chest pain, P.E, Primary Care Physician Jaren Talamantes III, MD History of Present Illness This is a 62 yo WM with history of CABG, CAD and multiple cardiac stenting ( followed by Dr. Story in the outpatient setting per patient), COPD, tobacco smoker, and HTN who presented yesterday with chest pain and syncopal episode. 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 He returned home 4 days ago and developed substernal burning felt to be GERD; PPI taken without much relief. He then had a syncopal episode yesterday; syncope appears to be recurrent over the past year; 24 hour holter worn which did not demonstrate arrhythmia. He also states he ran out of asa and Effient several days ago. In the ED he was found to have a right-sided pulmonary embolism; EKG did not show concerning ST changes and troponin appear normal. Currently he feeling sob and dyspneic at rest; no chest pain. (Abi Beckford) Review of Systems Consitutional: DENIES: Fever, Chills, Weight gain, Weight loss Respiratory: DENIES: Cough, Snoring, Wheezing, Sputum production Cardiovascular: DENIES: Palpitations, Tachycardia Gastrointestinal: DENIES: Nausea, Vomiting, Change in bowel habits, Reflux, Bloody stools, Melena (Abi Beckford) Past Family Social History Allergies: Coded Allergies: ketorolac (Verified Allergy, Severe, RASH, 11/28/17) penicillin G (Verified Allergy, Unknown, Anaphylaxis, 11/28/17) Past Medical History CAD CABG X 2 STENT HTN BACK PAIN HYPERLIPIDEMIA COPD GERD HH TOBACCO ABUSE RENAL STONES Past Surgical History CABG Multiple stent placement. Reported Medications Reported Meds & Active Scripts Active Lisinopril 10 Mg Tab 10 Mg PO DAILY Oxycodone (Oxycodone HCl) 10 Mg Tab 30 Mg PO Q6H PRN Xanax (Alprazolam) 1 Mg Tab 1 Mg PO BID Isosorbide Mononitrate ER (Isosorbide Mononitrate) 60 Mg Tab 60 Mg PO BID 30 Days Effient (Prasugrel) 10 Mg Tab 10 Mg PO DAILY Lipitor (Atorvastatin Calcium) 80 Mg Tab 80 Mg PO DAILY Aspirin 81 Mg Chew 81 Mg CHEW DAILY Ventolin Hfa 18 GM Inh (Albuterol Sulfate) 90 Mcg/Act Aer 2 Puff INH Q4-6H PRN Reported Furosemide 20 Mg Tab 20 Mg PO DAILY Gabapentin 600 Mg Tab 600 Mg PO BID Potassium Chloride ER (Potassium Chloride) 20 Meq Tab 20 Meq PO DAILY Active Ordered Medications Current Medications Medications (Trade) Dose Ordered Sig/Libby Route Start Time Stop Time Status Last Admin Heparin Sodium/ Dextrose 250 ml @ 12 mls/hr TITRATE PRN IV 12/19/17 13:45 12/19/17 15:16 (NS Flush) 2 ml UNSCH PRN IV FLUSH 12/19/17 16:30 (NS Flush) 2 ml BID IV FLUSH 12/19/17 21:00 12/20/17 06:54 (Tylenol) 650 mg Q4H PRN PO 12/19/17 16:30 (Zofran Inj) 4 mg Q6H PRN IVP 12/19/17 16:30 12/20/17 05:51 (Narcan Inj) 0.4 mg UNSCH PRN IV PUSH 12/19/17 16:30 (Melissa-Colace) 1 tab BID PO 12/19/17 21:00 (Milk Of Magnesia Liq) 30 ml Q12H PRN PO 12/19/17 16:30 (Senokot) 17.2 mg Q12H PRN PO 12/19/17 16:30 (Dulcolax Supp) 10 mg DAILY PRN RECTAL 12/19/17 16:30 (Lactulose Liq) 30 ml DAILY PRN PO 12/19/17 16:30 (Proair Hfa Inh) 2 puff Q4H PRN INH 12/19/17 17:45 (Xanax) 1 mg BID PO 12/19/17 21:00 12/19/17 21:56 (Lipitor) 80 mg DAILY PO 12/20/17 09:00 (Neurontin) 600 mg BID PO 12/19/17 21:00 12/19/17 21:56 (Imdur) 60 mg BID@0900,1800 PO 12/19/17 21:00 12/19/17 21:55 (Prinivil) 10 mg DAILY PO 12/20/17 09:00 (Roxicodone) 30 mg Q6H PRN PO 12/19/17 17:45 12/20/17 05:50 (Effient) 10 mg DAILY PO 12/20/17 09:00 (Aspirin Chew) 81 mg DAILY CHEW 12/20/17 09:00 Family History several family members have had NE Social History +smokes 5 cigarettes per day, denies etoh or illicit drug use (Abi Beckford) Physical Exam Vital Signs Vital Signs Date Time Temp Pulse Resp B/P (MAP) Pulse Ox O2 Delivery O2 Flow Rate FiO2 12/20/17 04:05 68 12/20/17 04:05 68 12/20/17 00:14 97.7 73 14 138/77 (97) 97 12/19/17 20:00 97.8 75 19 131/76 (94) 95 12/19/17 17:12 69 12/19/17 16:00 98.7 71 20 136/85 (102) 99 12/19/17 12:41 78 18 127/78 (94) 99 Room Air 12/19/17 12:41 78 20 117/80 (92) 18 22 130/83 (99) 84 26 127/78 (94) 12/19/17 11:18 18 97 Room Air 12/19/17 11:02 88 18 98 Room Air 12/19/17 11:01 97.9 86 18 137/81 (99) 98 Room Air Physical Exam GENERAL: SKIN: Warm and dry. HEAD: Atraumatic. Normocephalic. EYES: Pupils equal and round. No scleral icterus. No injection or drainage. ENT: No nasal bleeding or discharge. NECK: Trachea midline. No JVD. CARDIOVASCULAR: Regular rate and rhythm. no murmurs RESPIRATORY: No accessory muscle use. Clear to auscultation. Breath sounds equal bilaterally. GASTROINTESTINAL: Abdomen soft, non-tender, nondistended. . MUSCULOSKELETAL: Extremities without clubbing, cyanosis, or edema. No obvious deformities. NEUROLOGICAL: Awake and alert. No obvious cranial nerve deficits.. Normal speech. PSYCHIATRIC: Appropriate mood and affect; insight and judgment normal. Laboratory Laboratory Tests Test 12/19/17 11:19 12/19/17 12:43 12/19/17 14:04 12/19/17 18:36 White Blood Count 11.4 12.7 Red Blood Count 5.39 5.29 Hemoglobin 16.4 15.8 Hematocrit 47.8 46.5 Mean Corpuscular Volume 88.6 87.9 Mean Corpuscular Hemoglobin 30.4 29.9 Mean Corpuscular Hemoglobin Concent 34.3 34.1 Red Cell Distribution Width 14.2 14.2 Platelet Count 314 296 Mean Platelet Volume 8.8 8.8 Neutrophils (%) (Auto) 78.7 Lymphocytes (%) (Auto) 15.0 Monocytes (%) (Auto) 5.2 Eosinophils (%) (Auto) 0.6 Basophils (%) (Auto) 0.5 Neutrophils # (Auto) 9.0 Lymphocytes # (Auto) 1.7 Monocytes # (Auto) 0.6 Eosinophils # (Auto) 0.1 Basophils # (Auto) 0.1 CBC Comment DIFF FINAL Differential Comment Prothrombin Time 10.0 10.4 Prothromb Time International Ratio 1.0 1.0 Activated Partial Thromboplast Time 25.9 26.8 Blood Urea Nitrogen 23 Creatinine 1.08 Random Glucose 106 Total Protein 8.0 Albumin 4.3 Calcium Level 9.4 Magnesium Level 2.2 Alkaline Phosphatase 96 Aspartate Amino Transf (AST/SGOT) 12 Alanine Aminotransferase (ALT/SGPT) 19 Total Bilirubin 0.5 Sodium Level 137 Potassium Level 4.1 Chloride Level 102 Carbon Dioxide Level 28.6 Anion Gap 6 Estimat Glomerular Filtration Rate 70 Total Creatine Kinase 105 82 Creatine Kinase MB 2.6 Troponin I LESS THAN 0.02 LESS THAN 0.02 Urine Color YELLOW Urine Turbidity CLEAR Urine pH 6.0 Urine Specific [place] 1.019 Urine Protein NEG Urine Glucose (UA) NEG Urine Ketones NEG Urine Occult Blood TRACE Urine Nitrite NEG Urine Bilirubin NEG Urine Urobilinogen LESS THAN 2.0 Urine Leukocyte Esterase NEG Urine RBC 1 Urine WBC 1 Urine Mucus FEW Microscopic Urinalysis Comment CULT NOT INDICATED Urine Opiates Screen NEG Urine Barbiturates Screen NEG Urine Amphetamines Screen NEG Urine Benzodiazepines Screen NEG Urine Cocaine Screen NEG Urine Cannabinoids Screen NEG Test 12/19/17 20:36 12/20/17 00:22 12/20/17 02:58 Activated Partial Thromboplast Time 29.3 45.7 Total Creatine Kinase 79 Troponin I LESS THAN 0.02 Blood Urea Nitrogen 17 Creatinine 1.04 Random Glucose 109 Total Protein 6.5 Albumin 3.4 Calcium Level 8.5 Alkaline Phosphatase 78 Aspartate Amino Transf (AST/SGOT) 13 Alanine Aminotransferase (ALT/SGPT) 16 Total Bilirubin 0.3 Sodium Level 141 Potassium Level 4.0 Chloride Level 105 Carbon Dioxide Level 31.2 Anion Gap 5 Estimat Glomerular Filtration Rate 73 (Abi Beckford) Result Diagram: 12/19/17 1836 12/20/17 0258 Imaging Last [address] 12/19/17 1111 Signed Impressions: Service Date/Time: December 12:53 - CONCLUSION: No acute intracranial disease. Abe Maldonado MD Chest X-Ray 12/19/17 1111 Signed Impressions: Service Date/Time: December 11:20 - CONCLUSION: The lungs are clear. [place] MD Cervical Spine CT 12/19/17 1111 Signed Impressions: Service Date/Time: December 12:53 - CONCLUSION: 1. No acute fracture or prevertebral soft tissue swelling. 2. Diffuse cervical spondylosis. 3. Stable bilateral foraminal narrowing from C3 through T1. 4. Grade I anterolisthesis of C3 in relation to C4. 5. Scoliosis of the cervical spine. 6. Scattered emphysematous changes within the lung apices. 7. Air is noted within the marrow of the posterior medial right first rib. Abe Maldonado MD CT Angiography 12/19/17 1111 Signed Impressions: Service Date/Time: December 13:01 - CONCLUSION: 1. Small segmental emboli within the right upper and middle lobe pulmonary artery branches. 2. Stable centrilobular emphysema. 3. Focal scarring within the lateral aspect of the right lower lobe. 4. Coronary artery calcifications. Abe Maldonado MD (Abi Beckford) Assessment and Plan Problem List: (1) Atypical chest pain ICD Codes: R07.89 - Other chest pain Status: Acute (2) Pulmonary embolism ICD Codes: I26.99 - Other pulmonary embolism without acute cor pulmonale Status: Acute (3) Syncope ICD Codes: R55 - Syncope and collapse Status: Acute Assessment and Plan 62 yo WM with history of CABG, CAD and multiple cardiac stenting (followed by Dr. Story in the outpatient setting per patient), COPD, tobacco smoker, and HTN who presented yesterday with chest pain and syncopal episode. 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 He returned home 4 days ago and developed substernal burning felt to be GERD; PPI taken without much relief. He then had a syncopal episode yesterday; syncope appears to be recurrent over the past year CAD- prior CABG, (Nov 2016): PCI BMS LAD/ramus and PTCA of LAD, subacute thrombosis, patent grafts and complex anatomy and has been on Effient for several years with reported poor compliance at times. In light of new P.E will obtain bilateral venous ultrasounds and consider IVC filter, recommend hypercoagulable panel and cancer workup before initiating anticoagulant. would recommend stopping Effient and starting Xarelto along with plavix. consider P2Y12 assay to check for plavix resistance. (Abi Beckford) Assessment and Plan pulmonary embolism - anticoagulation. venous US negative. no IVC filter. hypercoag panel. cancer screening CAD - change effient to plavix. less bleeding risk with eliquis [place] planning FU dr story will sign off call with questions (Calvin Ivey MD) Problem Qualifiers (1) Pulmonary embolism: Qualified Codes: I26.99 - Other pulmonary embolism without acute cor pulmonale Abi Beckford Dec 20, 2017 08:04 Calvin Ivey MD Dec 20, 2017 17:15
[2017-12-20] MEDS: ATORVASTATIN 80 MG TAB PO SCH (08:33)
[2017-12-20] MEDS: DOCUSATE SODIUM 50 MG/SENNA 8.6 MG TAB PO SCH ×2 (08:33→21:46)
[2017-12-20] MEDS: ALPRAZolam 1 MG TAB PO SCH ×2 (08:33→21:46)
[2017-12-20] MEDS: GABAPENTIN 300 MG CAP PO SCH ×2 (08:33→21:46)
[2017-12-20] MEDS: ISOSORBIDE MONONITRATE 60 MG TAB PO SCH ×2 (08:34→17:05)
[2017-12-20] MEDS: LISINOPRIL 10 MG TAB PO SCH (08:34)
[2017-12-20] MEDS ORDERED: ASPIRIN 81 MG CHEW TAB CHEW SCH (09:00)
[2017-12-20] MEDS ORDERED: PRASUGREL 10 MG TAB PO SCH (09:00)
--- NOTE | 2017-12-20 11:00 | RADRPT ---
EXAM DATE/TIME: 12/20/2017 09:06 [facility] COMPARISON: No previous studies available for comparison. INDICATIONS : Bilateral leg swelling. Pulmonary embolism. MEDICAL HISTORY : Myocardial infarction. Hypercholesterolemia. Renal calculi. Head trauma. Migraine. Numbness. Coronary artery disease. Hyperlipidemia. Chest pain. HTN. COPD. Dyspnea. Hiatal hernia. Arthritis. PTSD. Anxi ety. Substance use. Anticoagulant therapy, Effient. SURGICAL HISTORY : Coronary artery stent.CABG Cardiac cath. Club foot surgery. ENCOUNTER: Initial ACUITY: 1 day PAIN SCORE: 2/10 LOCATION: Bilateral leg. TECHNIQUE: Venous ultrasound of the left and right leg was performed from the inguinal ligament to the proximal calf. Real-time, color Doppler and spectral tracing, compression and augmentation techniques were us ed. FINDINGS: RIGHT LEG: There is normal compressibility of the deep venous system from the inguinal region to the proximal ca lf. No echogenic clot is seen in the lumen of the common femoral, femoral, popliteal, and posterior tibial veins. There is a normal response of the venous system to proximal and distal augmentation an d respiration. LEFT LEG: There is normal compressibility of the deep venous system from the inguinal region to the proximal ca lf. No echogenic clot is seen in the lumen of the common femoral, femoral, popliteal, and posterior tibial veins. There is a normal response of the venous system to proximal and distal augmentation an d respiration. CONCLUSION: Negative for deep venous thrombosis. Bill San MD FACR on December 20, 2017 at 10:58 Board Certified Radiologist. This report was verified electronically.
[2017-12-20] MEDS: HEPARIN-D5W 25,000 U/250 ML 250 ML IV PRN (14:43)
--- NOTE | 2017-12-20 14:56 | EKG ---
Date Performed: 12/19/2017 Time Performed: 10:46:45 PTAGE: 62 years EKG: Sinus rhythm NONSPECIFIC T-WAVE ABNORMALITY Since previous tracing, no significant change noted BORDERLINE ECG PREVIOUS TRACING : 11/29/2017 05.02 DOCTOR: Fidelina Turcios Interpretating Date/Time 12/20/2017 14:54:44
--- NOTE | 2017-12-20 15:41 | HHI.PR ---
Subjective Remarks The patient complains of epigastric burning. Denies any chest pain. Denies shortness of breath. Objective Vitals Vital Signs Date Time Temp Pulse Resp B/P (MAP) Pulse Ox O2 Delivery O2 Flow Rate FiO2 12/20/17 12:00 97.9 74 18 122/78 (93) 97 12/20/17 08:00 97.2 73 18 107/69 (82) 94 12/20/17 07:24 72 12/20/17 04:05 68 12/20/17 04:05 68 12/20/17 00:14 97.7 73 14 138/77 (97) 97 12/19/17 20:00 97.8 75 19 131/76 (94) 95 12/19/17 17:12 69 12/19/17 16:00 98.7 71 20 136/85 (102) 99 I/O 12/19/17 12/19/17 12/19/17 12/20/17 12/20/17 12/20/17 07:00 15:00 23:00 07:00 15:00 23:00 Intake Total 560 ml Output Total 950 ml Balance -390 ml Intake Oral 560 ml Output Urine Total 950 ml Result Diagram: 12/19/17 1836 12/20/17 0258 Imaging Last Impressions Lower Extremity Ultrasound 12/20/17 0000 Signed Impressions: Service Date/Time: Wednesday, December 20, 2017 09:06 - CONCLUSION: Negative for deep venous thrombosis. Bill San MD FACR Head CT 12/19/17 1111 Signed Impressions: Service Date/Time: December 12:53 - CONCLUSION: No acute intracranial disease. Abe Maldonado MD Chest X-Ray 12/19/17 1111 Signed Impressions: Service Date/Time: December 11:20 - CONCLUSION: The lungs are clear. [place] MD Cervical Spine CT 12/19/17 1111 Signed Impressions: Service Date/Time: December 12:53 - CONCLUSION: 1. No acute fracture or prevertebral soft tissue swelling. 2. Diffuse cervical spondylosis. 3. Stable bilateral foraminal narrowing from C3 through T1. 4. Grade I anterolisthesis of C3 in relation to C4. 5. Scoliosis of the cervical spine. 6. Scattered emphysematous changes within the lung apices. 7. Air is noted within the marrow of the posterior medial right first rib. Abe Maldonado MD CT Angiography 12/19/17 1111 Signed Impressions: Service Date/Time: December 13:01 - CONCLUSION: 1. Small segmental emboli within the right upper and middle lobe pulmonary artery branches. 2. Stable centrilobular emphysema. 3. Focal scarring within the lateral aspect of the right lower lobe. 4. Coronary artery calcifications. Abe Maldonado MD Objective Remarks GENERAL: This is a well-nourished, well-developed patient, in no apparent distress. SKIN: No rashes, ecchymoses or lesions. Cool and dry. HEAD: Atraumatic. Normocephalic. No temporal or scalp tenderness. EYES: Pupils equal round and reactive. Extraocular motions intact. No scleral icterus. No injection or drainage. ENT: Nose without bleeding, purulent drainage or septal hematoma. Throat without erythema, tonsillar hypertrophy or exudate. Uvula midline. Airway patent. NECK: Trachea midline. No JVD or lymphadenopathy. Supple, nontender, no meningeal signs. CARDIOVASCULAR: Regular rate and rhythm without murmurs, gallops, or rubs. RESPIRATORY: Clear to auscultation. Breath sounds equal bilaterally. No wheezes , rales, or rhonchi. GASTROINTESTINAL: Abdomen soft, non-tender, nondistended. No hepato-splenomegaly , or palpable masses. No guarding. MUSCULOSKELETAL: Extremities without clubbing, cyanosis, or edema. No joint tenderness, effusion, or edema noted. No calf tenderness. Negative Homans sign bilaterally. NEUROLOGICAL: Awake and alert. Cranial nerves II through XII intact. Motor and sensory grossly within normal limits. Five out of 5 muscle strength in all muscle groups. Normal speech. Medications and IVs Current Medications Medications (Trade) Dose Ordered Sig/Libby Route Start Time Stop Time Status Last Admin Heparin Sodium/ Dextrose 250 ml @ 12 mls/hr TITRATE PRN IV 12/19/17 13:45 12/20/17 14:43 (NS Flush) 2 ml UNSCH PRN IV FLUSH 12/19/17 16:30 (NS Flush) 2 ml BID IV FLUSH 12/19/17 21:00 12/20/17 06:54 (Tylenol) 650 mg Q4H PRN PO 12/19/17 16:30 (Zofran Inj) 4 mg Q6H PRN IVP 12/19/17 16:30 12/20/17 05:51 (Narcan Inj) 0.4 mg UNSCH PRN IV PUSH 12/19/17 16:30 (Melissa-Colace) 1 tab BID PO 12/19/17 21:00 12/20/17 08:33 (Milk Of Magnesia Liq) 30 ml Q12H PRN PO 12/19/17 16:30 (Senokot) 17.2 mg Q12H PRN PO 12/19/17 16:30 (Dulcolax Supp) 10 mg DAILY PRN RECTAL 12/19/17 16:30 (Lactulose Liq) 30 ml DAILY PRN PO 12/19/17 16:30 (Proair Hfa Inh) 2 puff Q4H PRN INH 12/19/17 17:45 (Xanax) 1 mg BID PO 12/19/17 21:00 12/20/17 08:33 (Lipitor) 80 mg DAILY PO 12/20/17 09:00 12/20/17 08:33 (Neurontin) 600 mg BID PO 12/19/17 21:00 12/20/17 08:33 (Imdur) 60 mg BID@0900,1800 PO 12/19/17 21:00 12/19/17 21:55 (Prinivil) 10 mg DAILY PO 12/20/17 09:00 (Roxicodone) 30 mg Q6H PRN PO 12/19/17 17:45 12/20/17 11:53 (Effient) 10 mg DAILY PO 12/20/17 09:00 12/20/17 08:33 (Aspirin Chew) 81 mg DAILY CHEW 12/20/17 09:00 12/20/17 08:33 Urinary Catheter: No Vascular Central Line Catheter: No A/P Problem List: (1) Pulmonary embolism ICD Code: I26.99 - Other pulmonary embolism without acute cor pulmonale Plan: Admit the patient to the medical floor. CT pulmonary angiogram as described above showed a small segmental emboli within the right upper and middle lobe pulmonary artery branches. Stable centrilobular emphysema. Focal scarring within the lateral aspect of the right lower lobe. Coronary artery calcifications. The patient has been started on heparin drip the emergency department which was continued. Effient and aspirin also continued. We will check a 2D echocardiogram. 12/20 hematology consulted and case discussed with Dr. Ramsay. He states that we will see the patient later but he stated that the combination of heparin or any other anticoagulant with Effient has a major risk of increased bleeding. He suggested cardiology consultation which was ordered. Cardiology recommended switching Effient to Plavix and starting one of the novel anticoagulation available in the market. Hematology suggested Eliquis. I will start the patient on Eliquis to be started tonight, DC IV heparin drip before Eliquis is started and will DC Effient and start the patient on Plavix. (2) Pleuritic chest pain ICD Code: R07.81 - Pleurodynia Plan: Pleuritic chest pain likely secondary to pulmonary emboli. Continue home pain medications. Continue morphine as needed for chest pain. (3) CAD (coronary artery disease) ICD Code: I25.10 - Atherosclerotic heart disease of [place] coronary artery without angina pectoris Status: Chronic Plan: Patient complains of chest pain, however troponins have been negative 2. EKG reviewed by me shows sinus rhythm without any significant ST-T changes. Appreciate cardiology recommendations. Cardiology recommended bilateral extremity venous Doppler and consideration of IVC filter. Venous Dopplers negative for DVT, at this point I do not see a clear indication for an IVC filter placement as the patient has not failed oral anticoagulation and there is no DVT present at this time. (4) COPD (chronic obstructive pulmonary disease) ICD Code: J44.9 - Chronic obstructive pulmonary disease, unspecified Status: Chronic Plan: Not an exacerbation. Continue duo nebs as needed. (5) Hyperlipidemia ICD Code: E78.5 - Hyperlipidemia, unspecified Status: Chronic Plan: Continue statin (6) Hypertension ICD Code: I10 - Hypertension Status: Acute Plan: Blood pressure seems to be stable. Continue lisinopril. (7) Syncope ICD Code: R55 - Syncope and collapse Status: Acute Plan: Patient has had multiple episodes of syncope. In this opportunity I believe the syncope is related to the pulmonary embolism. Cardiology consulted follow-up recommendations. Continue to monitor on telemetry, no arrhythmias reported. (8) Epigastric abdominal pain ICD Code: R10.13 - Epigastric pain Plan: The patient is complaining of epigastric burning pain. Upon review of records the patient had a recent EGD with colonoscopy on February 15, 2017. At that time he was found to the patient had esophagitis, mild gastritis in the gastric antrum, duodenal inflammation was found in the bulb and second portion of the duodenum. Patient was started on PPI and instructed to avoid NSAIDs at the time. Pathology report of the esophagus biopsy reported such as esophageal mucosa with moderate chronic inflammation. Negative for intestinal metaplasia, dysplasia or malignancy. On patient current home medication reconciliation form, Protonix is not 1 of the medications listed. I will start the patient on Protonix 40 mg p.o. daily and Maalox as needed for epigastric pain. Assessment and Plan GI prophylaxis: Start PPI. DVT prophylaxis: Patient on heparin drip, this will be discontinued the patient will be started on Eliquis. Discharge Planning Discharge pending clinical improvement of epigastric pain and successful transition of IV to oral anticoagulation. Problem Qualifiers (1) Pulmonary embolism: (2) CAD (coronary artery disease): Qualified Codes: I25.10 - Atherosclerotic heart disease of [place] coronary artery without angina pectoris (3) Hyperlipidemia: Qualified Codes: E78.5 - Hyperlipidemia, unspecified (4) Hypertension: Qualified Codes: I10 - Essential (primary) hypertension Praveen Matthews MD Dec 20, 2017 15:41
[2017-12-20] MEDS ORDERED: ALUMINUM/MAGNESIUM/SIMETH 30 ML CUP PO PRN (15:45)
[2017-12-20] MEDS ORDERED: ALUMINUM/MAGNESIUM/SIMETH 30 ML CUP PO ONE (15:45)
[2017-12-20] MEDS: PANTOPRAZOLE SOD 40 MG DELAYED RELEASE TAB PO SCH (16:29)
[2017-12-20] MEDS ORDERED: APIXABAN 5 MG TABLET PO SCH (21:00)
--- NOTE | 2017-12-20 22:24 | MB ---
cc: BROCK ZHENG MD DATE OF CONSULTATION: 12/20/2017. REASON FOR CONSULTATION: Suspected pulmonary emboli involving the right lung (subsegmental branches). TIME OF CONSULTATION: 5:30 p.m. CHIEF COMPLAINT: The patient reports chronic chest pain. HISTORY OF PRESENT ILLNESS: Mr. Zazueta is a 62-year-old male, he is a chronic smoker, has had a history of myocardial infarctions and has been on antiplatelet therapy with Effient and aspirin. 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 He went to a local ER [id number] and was given antibiotics. The patient's symptoms improved transiently but he developed cough which worsened and chest pain involving the right and left chest associated with difficulty breathing about a week ago. He came into the emergency department for further workup and management. He underwent CT angiogram which revealed findings concerning for pulmonary embolus involving the right upper lobe and right middle lobe pulmonary artery branches (these were assessed to be small). He was noted to have stable central lobar emphysema. The hematology service has been asked to see him to make recommendations with regards to specific therapeutic anticoagulation. PAST MEDICAL HISTORY: 1. Coronary artery disease. 2. COPD. 3. Tobaccoism. 4. Hypertension. 5. Hyperlipidemia. 6. Gastroesophageal reflux disease (GERD). 7. Hypertension. 8. History of renal stones. PAST SURGICAL HISTORY: 1. Stents (x7). 2. CABG x2. 3. No other surgeries noted. ALLERGIES: 1. KETOROLAC. 2. PENICILLIN G. FAMILY HISTORY: He reports strong family history of heart attacks including his parents and siblings. SOCIAL HISTORY: The patient reports smoking up to about half a pack a day, he also smokes marijuana regularly. He denies alcohol or illicit drug use. He tells me he served in [place]. CURRENT INPATIENT MEDICATIONS: 1. Heparin infusion per protocol. 2. Tylenol 650 milligrams p.o. q. 4 hours. 3. Milk of magnesia as needed for epigastric pain. 4. ProAir HFA two puffs q. 4 hours. 5. Xanax 1 milligram p.o. twice a day. 6. Atorvastatin 80 milligrams once daily. 7. Dulcolax 10 milligrams per rectal as needed for severe constipation. 8. Plavix 75 milligrams p.o. daily. 9. Gabapentin 600 milligrams p.o. twice a day. 10. Isosorbide mononitrate 50 milligrams p.o. twice a day. 11. Lactulose 30 mL p.o. daily. 12. Lisinopril 10 milligrams p.o. daily. 13. Zofran 4 milligrams IV q. 6 hours as needed for nausea. 14. Oxycodone 30 milligrams p.o. q. 6 hours as needed for pain. 15. Pantoprazole 40 milligrams p.o. daily. 16. Senokot. REVIEW OF SYSTEMS: CONSTITUTIONAL: The patient reports chronic pain, fatigue, cough, exertional dyspnea. He denies fevers, chills or night sweats, he reports appetite been fair, he denies headaches, blurry vision or difficulty swallowing. GI: Denies nausea, vomiting, diarrhea, hematochezia, melena. : No complaints of dysuria, hematuria, urinary incontinence. 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 No other complaints reported. PHYSICAL EXAMINATION: VITAL SIGNS: Temperature 97.7 degrees Fahrenheit, heart rate 75 beats a minute, respiratory rate 18, blood pressure 128/76, O2 sats are 96% on room air. GENERAL PHYSICAL APPEARANCE: Mr. Zazueta is a middle aged male. He is short and of moderate build. He appears to be in no acute distress and has a pleasant disposition. HEAD, EYES, EARS, NOSE, THROAT: Head is atraumatic and normocephalic. Conjunctivae are non-pale. The sclerae are anicteric. Extraocular muscles intact. Pupils equal, round and reactive to light and accommodation. ORAL EXAM: No pharyngeal erythema. NECK EXAM: No palpable cervical or supraclavicular lymphadenopathy. RESPIRATORY EXAM: Good air movement bilaterally with prolonged expiratory phase and scattered rhonchi. CARDIOVASCULAR EXAM: Regular rate and rhythm. S1, S2. No obvious murmurs, rubs or gallops. ABDOMINAL EXAM: Protuberant. Soft, nontender and nondistended. No palpable organ enlargement. LOWER EXTREMITIES: No pretibial edema. No calf tenderness. 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 SKIN: Within normal limits. LABORATORY FINDINGS: Blood work dated 12/20/2017: Sodium 141, potassium 4, chloride 105, bicarb 31, BUN 17, creatinine 1, EGFR 73 mL/minute, glucose 109, calcium 8.5, total bilirubin 0.3, AST 13, ALT 16, alkaline phosphatase 78, albumin is 3.4. CBC dated 12/19/2017: WBC count 14.4, hemoglobin 16.4 gm/dL, hematocrit 47.8%, platelet count 314,000, absolute neutrophil count is 9. IMAGING STUDIES: CT angiogram dated 12/19/2017 indicates small segmental pulmonary emboli within the right upper and middle lobe pulmonary artery branches. Stable central lobar emphysema. Coronary artery calcifications. Ultrasound Doppler studies of bilateral lower extremities indicates no evidence of deep venous thromboses. ASSESSMENT: Mr. Zazueta is a 62-year-old male who presents to the hospital with complaints of chest pain which has been acute on chronic. He reports difficulty breathing and cough. He has known COPD, active tobaccoism and a history of coronary artery disease with recurrent myocardial infarctions requiring stenting as well as CABG. He had he had been on oral antiplatelet therapy with aspirin and Effient. DISCUSSION: I did review personally the patient's CT angiogram, both axial and sagittal sections. I had difficulty identifying a definitive pulmonary embolus. I did request a second review of the CT angiogram by the on-call radiologist. The on-call radiologist suspects possible artifact contributing to the aberrancy in the blood flow in the pulmonary arteries. I personally suspect this may be related to his COPD and emphysematous changes, which can affect the flow of blood through the pulmonary arterial system in individuals such as this man. RECOMMENDATIONS: 1. Suspected pulmonary embolus: I am not convinced that there was a definite pulmonary embolus. I have therefore requested a VQ scan to be done. If the VQ scan indicates high and moderate probability of pulmonary embolus, I would recommend continuation of anticoagulation in transitioning him to an oral agent such as Xarelto which can be combined with either aspirin or Plavix. If the VQ scan is low probability for pulmonary embolus, I would recommend discontinuing heparin and continuing antiplatelet therapy as per cardiology recommendations. Extensive smoking cessation advice was provided to the patient. The hematology service follow along with you. MD CAMILLE Jay/[place] /6:15 PM /9:54 PM
[2017-12-21] VITALS (10 sets, daily range): BP systolic 102–130; BP diastolic 57–70; PULSE 79–92; RESP 16–20; TEMP 97.4–97.9; O2SAT 92–94
--- NOTE | 2017-12-21 02:34 | RADRPT ---
EXAM DATE/TIME: 12/21/2017 02:12 [facility] COMPARISON: No previous studies available for comparison. INDICATIONS : Low abdomen pain. ORAL CONTRAST: No oral contrast ingested. RADIATION DOSE: 13.53 CTDIvol (mGy) MEDICAL HISTORY : Cardiovascular disease. Renal calculi. PE, Femoral aneurysm. SURGICAL HISTORY : None. ENCOUNTER: Initial ACUITY: 1 day PAIN SCALE: 8/10 LOCATION: Bilateral abdomen. TECHNIQUE: Volumetric scanning of the abdomen and pelvis was performed. Using automated exposure control and ad justment of the mA and/or kV according to patient size, radiation dose was kept as low as reasonably achievable to obtain optimal diagnostic quality images. DICOM format image data is available electro nically for review and comparison. FINDINGS: Comparison is August 2016. Compared to previous exam bilateral inguinal hernias have developed conta ining a loop of bowel. No definite evidence for obstruction. No free air or free fluid. Lung bases demonstrate some dependent atelectasis and scarring on the right. No effusion. No acute findings in the liver, spleen, adrenals, kidneys or pancreas. No calcified gallstones or leonie iary ductal dilatation. CONCLUSION: 1. Bilateral inguinal hernias containing a loop of bowel but without evidence for obstruction. No amy e fluid or free air. Hank Snell MD on December 21, 2017 at 2:24 Board Certified Radiologist. This report was verified electronically.
[2017-12-21] MEDS ORDERED: MORPHINE SULFATE 2 MG/ML INJ IV PUSH ONE ×2 (05:00)
[2017-12-21] MEDS: SODIUM CHLORIDE 0.9% FLUSH 10 ML FLUSH IV FLUSH SCH ×2 (09:00→22:57)
[2017-12-21] MEDS: ATORVASTATIN 80 MG TAB PO SCH (09:00)
[2017-12-21] MEDS: LISINOPRIL 10 MG TAB PO SCH (09:00)
[2017-12-21] MEDS: ALPRAZolam 1 MG TAB PO SCH ×2 (09:00→21:00)
[2017-12-21] MEDS: CLOPIDOGREL 75 MG TAB PO SCH (09:00)
[2017-12-21] MEDS: ISOSORBIDE MONONITRATE 60 MG TAB PO SCH ×2 (09:00→18:00)
[2017-12-21] MEDS ORDERED: PRASUGREL 10 MG TAB PO SCH (09:00)
[2017-12-21] MEDS: GABAPENTIN 300 MG CAP PO SCH ×2 (09:00→22:56)
[2017-12-21] MEDS: DOCUSATE SODIUM 50 MG/SENNA 8.6 MG TAB PO SCH ×2 (09:00→22:56)
[2017-12-21] MEDS: PANTOPRAZOLE SOD 40 MG DELAYED RELEASE TAB PO SCH (09:00)
[2017-12-21 10:30] LABS: HEMATOCRIT 42.1 % (39.0-51.0); HEMOGLOBIN 14.4 GM/DL (13.0-17.0); MEAN CELL VOLUME 89.5 FL (80.0-100.0); MEAN CORPUSCULAR HEMOGLOBIN 30.6 PG (27.0-34.0); MEAN CORPUSCULAR HGB CONC 34.2 % (32.0-36.0); MEAN PLATELET VOLUME 8.3 FL (7.0-11.0); PLATELET COUNT 243 TH/MM3 (150-450); RED CELL DISTRIBUTION WIDTH 14.1 % (11.6-17.2); WHITE BLOOD COUNT 10.4 TH/MM3 (4.0-11.0)
[2017-12-21 10:49] LABS: CALCIUM 8.9 MG/DL (8.5-10.1); CREATININE 1.21 MG/DL (0.60-1.30)
--- NOTE | 2017-12-21 11:52 | RADRPT ---
EXAM DATE/TIME: 12/21/2017 11:31 [facility] COMPARISON: CHEST SINGLE AP, December 19, 2017, 11:20. INDICATIONS : Pulmonary disease. Chest pain. MEDICAL HISTORY : Myocardial infarction. Chronic obstructive pulmonary disease. Hypertension. SURGICAL HISTORY : CABG. Coronary artery stent. ENCOUNTER: Subsequent ACUITY: 4 - 6 days PAIN SCORE: 10/10 LOCATION: Bilateral chest FINDINGS: A single view of the chest demonstrates the lungs to be symmetrically aerated without evidence of mas s, infiltrate or effusion. Heart size is normal. Multiple intact median sternotomy wires. Osseous str uctures are intact. CONCLUSION: No acute disease. Ronna Silverio MD on December 21, 2017 at 11:49 Board Certified Radiologist. This report was verified electronically.
[2017-12-21] MEDS: HEPARIN-D5W 25,000 U/250 ML 250 ML IV PRN (12:17)
--- NOTE | 2017-12-21 14:03 | RADRPT ---
EXAM DATE/TIME: 12/21/2017 13:00 [facility] COMPARISON: CT PULMONARY ANGIOGRAM, December 19, 2017, 13:01. CHEST SINGLE AP, December 21, 2017, 11:31. INDICATIONS : Patient passed out DOSE: 1.1 mCi Tc99m DTPA 8.4 mCi Tc99m MAA MEDICAL HISTORY : Chronic obstructive pulmonary disease. Hypertension. Myocardial infarction. SURGICAL HISTORY : CABG Coronary artery stent. ENCOUNTER: Initial ACUITY: 1 day PAIN SCALE: 3/10 LOCATION: Bilateral chest TECHNIQUE: Following five minutes of tidal breathing of DTPA aerosol, planar images of the lungs were performed in eight projections. The patient was then injected with MAA, and eight-view perfusion scan was perf ormed. FINDINGS: Ventilation and perfusion scans reveal diffuse inhomogeneous ventilation with accompanying symmetrica l diffuse inhomogeneous perfusion. There is no evidence of lobar or segmental defects. Findings are c onsistent with emphysematous disease chronic lung disease CONCLUSION: Findings consistent with COPD and emphysema. No lobar or segmental defects appreciated and no evidenc e of mismatch. Oren Caldwell MD on December 21, 2017 at 13:57 Board Certified Radiologist. This report was verified electronically.
--- NOTE | 2017-12-21 14:34 | PD.ONC.PN ---
Subjective Subjective Remarks Afebrile Patient reports generalized pain States his shortness of breath is about the same Objective Data Date Time Temp Pulse Resp B/P (MAP) Pulse Ox O2 Delivery O2 Flow Rate FiO2 12/21/17 12:00 97.4 87 17 108/59 (75) 92 12/21/17 08:00 81 12/21/17 08:00 97.7 83 19 128/66 (86) 93 12/21/17 04:00 97.9 81 16 122/61 (81) 93 12/21/17 03:57 80 12/21/17 00:11 80 12/21/17 00:00 97.6 84 16 130/70 (90) 94 12/20/17 20:08 90 12/20/17 20:00 98.0 84 16 112/59 (76) 94 12/20/17 16:00 97.7 75 18 128/76 (93) 96 12/20/17 15:54 92 12/21/17 12/21/17 12/21/17 07:00 15:00 23:00 Intake Total 240 ml Balance 240 ml Result Diagram: 12/21/1793512/21/17935 Laboratory Results Laboratory Tests Test 12/21/17 09:36 White Blood Count 10.4 TH/MM3 Red Blood Count 4.70 MIL/MM3 Hemoglobin 14.4 GM/DL Hematocrit 42.1 % Mean Corpuscular Volume 89.5 FL Mean Corpuscular Hemoglobin 30.6 PG Mean Corpuscular Hemoglobin Concent 34.2 % Red Cell Distribution Width 14.1 % Platelet Count 243 TH/MM3 Mean Platelet Volume 8.3 FL Activated Partial Thromboplast Time 37.5 SEC Blood Urea Nitrogen 17 MG/DL Creatinine 1.21 MG/DL Random Glucose 102 MG/DL Calcium Level 8.9 MG/DL Sodium Level 138 MEQ/L Potassium Level 4.5 MEQ/L Chloride Level 100 MEQ/L Carbon Dioxide Level 34.0 MEQ/L Anion Gap 4 MEQ/L Estimat Glomerular Filtration Rate 61 ML/MIN Imaging Studies Last 24 hours Impressions Chest X-Ray 12/21/17 0000 Signed Impressions: Service Date/Time: Thursday, December 21, 2017 11:31 - CONCLUSION: No acute disease. Ronna Silverio MD Abdomen/Pelvis CT 12/21/17 0000 Signed Impressions: Service Date/Time: Thursday, December 21, 2017 02:12 - CONCLUSION: 1. Bilateral inguinal hernias containing a loop of bowel but without evidence for obstruction. No free fluid or free air. Hank Snell MD Administered Medications Medications (Trade) Dose Ordered Sig/Libby Route PRN Reason Start Time Stop Time Status Last Admin Dose Admin Heparin Sodium/ Dextrose 250 ml @ 12 mls/hr TITRATE PRN IV Coagulation Management 12/19/17 13:45 12/23/17 20:00 12/21/17 12:17 Sodium Chloride (NS Flush) 2 ml BID IV FLUSH 12/19/17 21:00 12/21/17 09:00 Ondansetron HCl (Zofran Inj) 4 mg Q6H PRN IVP NAUSEA OR VOMITING 12/19/17 16:30 12/20/17 16:29 Senna/Docusate Sodium (Melissa-Colace) 1 tab BID PO 12/19/17 21:00 12/21/17 09:00 Alprazolam (Xanax) 1 mg BID PO 12/19/17 21:00 12/21/17 09:00 Atorvastatin Calcium (Lipitor) 80 mg DAILY PO 12/20/17 09:00 12/21/17 09:00 Gabapentin (Neurontin) 600 mg BID PO 12/19/17 21:00 12/21/17 09:00 Isosorbide Mononitrate (Imdur) 60 mg BID@0900,1800 PO 12/19/17 21:00 12/21/17 09:00 Lisinopril (Prinivil) 10 mg DAILY PO 12/20/17 09:00 12/21/17 09:00 Oxycodone HCl (Roxicodone) 30 mg Q6H PRN PO PAIN 1-10 12/19/17 17:45 12/21/17 06:54 Pantoprazole Sodium (Protonix) 40 mg DAILY PO 12/20/17 15:45 12/21/17 09:00 Clopidogrel Bisulfate (Plavix) 75 mg DAILY PO 12/21/17 09:00 12/21/17 09:00 Prasugrel (Effient) 10 mg DAILY PO 12/21/17 09:00 12/21/17 09:00 Objective Remarks GENERAL: Older male asleep in bed on approach. Awakens easily to verbal stimuli SKIN: Warm and dry. HEAD: Normocephalic. EYES: No injection or drainage. NECK: Supple, trachea midline. CARDIOVASCULAR: Regular rate and rhythm without murmurs. RESPIRATORY: Clear anteriorly. Patient has wet cough GASTROINTESTINAL: Abdomen soft, non-tender, nondistended. EXTREMITIES: No cyanosis, or edema. MUSCULOSKELETAL: Adequate muscle tone. NEUROLOGICAL: No obvious focal deficit. Awake, alert, and oriented x3. Assessment/Plan Problem List: (1) Pulmonary embolism ICD Codes: I26.99 - Other pulmonary embolism without acute cor pulmonale Plan: -- CTA showed possible pulmonary embolus -- VQ scan showed findings consistent with COPD and emphysema Assessment Patient admitted after a syncopal episode and CTA showed possible pulmonary embolism Plan 1. Continue heparin gtt for now 2. Monitor CBC Attending Statement The exam, history, and the medical decision-making described in the above note were completed with the assistance of the mid-level provider. I reviewed and agree with the findings presented. I attest that I had a [id number] encounter with the patient on the same day, and personally performed and documented my assessment and findings in the medical record. SOB the same. Reviewed VQ scan with radiologist, although the VQ scan did not show any perfusion mismatch, he felt that CTA is a more sensitive test and the CTA reading should stand. Given pt still has SOB, will keep him on anticoagulation for now. May have to review CTA with he reading radiologist on Saturday to get his opinion. Problem Qualifiers (1) Pulmonary embolism: Sharonda Sanches Dec 21, 2017 14:34 Ozzy Van MD Dec 21, 2017 14:41
--- NOTE | 2017-12-21 15:27 | HHI.PR ---
Subjective Remarks c/o intermittent chest pain. C/o inguinal pain BL making it difficult for him to ambulate. Objective Vitals Vital Signs Date Time Temp Pulse Resp B/P (MAP) Pulse Ox O2 Delivery O2 Flow Rate FiO2 12/21/17 12:00 97.4 87 17 108/59 (75) 92 12/21/17 08:00 81 12/21/17 08:00 97.7 83 19 128/66 (86) 93 12/21/17 04:00 97.9 81 16 122/61 (81) 93 12/21/17 03:57 80 12/21/17 00:11 80 12/21/17 00:00 97.6 84 16 130/70 (90) 94 12/20/17 20:08 90 12/20/17 20:00 98.0 84 16 112/59 (76) 94 12/20/17 16:00 97.7 75 18 128/76 (93) 96 12/20/17 15:54 92 I/O 12/20/17 12/20/17 12/20/17 12/21/17 12/21/17 12/21/17 07:00 15:00 23:00 07:00 15:00 23:00 Intake Total 560 ml 1200 ml 240 ml Output Total 950 ml Balance -390 ml 1200 ml 240 ml Intake Oral 560 ml 1200 ml 240 ml Output Urine Total 950 ml # Voids 10 4 # Bowel Movements 0 Result Diagram: 12/21/17 0936 12/21/17 0936 Imaging Last Impressions Chest X-Ray 12/21/17 0000 Signed Impressions: Service Date/Time: Thursday, December 21, 2017 11:31 - CONCLUSION: No acute disease. Ronna Silverio MD Abdomen/Pelvis CT 12/21/17 0000 Signed Impressions: Service Date/Time: Thursday, December 21, 2017 02:12 - CONCLUSION: 1. Bilateral inguinal hernias containing a loop of bowel but without evidence for obstruction. No free fluid or free air. Hank Snell MD Lung Scan- Nuclear Medicine 12/20/17 0000 Signed Impressions: Service Date/Time: Thursday, December 21, 2017 13:00 - CONCLUSION: Findings consistent with COPD and emphysema. No lobar or segmental defects appreciated and no evidence of mismatch. Oren Caldwell MD Lower Extremity Ultrasound 12/20/17 0000 Signed Impressions: Service Date/Time: Wednesday, December 20, 2017 09:06 - CONCLUSION: Negative for deep venous thrombosis. Bill San MD FACR Head CT 12/19/17 1111 Signed Impressions: Service Date/Time: December 12:53 - CONCLUSION: No acute intracranial disease. Abe Maldonado MD Cervical Spine CT 12/19/17 1111 Signed Impressions: Service Date/Time: December 12:53 - CONCLUSION: 1. No acute fracture or prevertebral soft tissue swelling. 2. Diffuse cervical spondylosis. 3. Stable bilateral foraminal narrowing from C3 through T1. 4. Grade I anterolisthesis of C3 in relation to C4. 5. Scoliosis of the cervical spine. 6. Scattered emphysematous changes within the lung apices. 7. Air is noted within the marrow of the posterior medial right first rib. Abe Maldonado MD CT Angiography 12/19/17 1111 Signed Impressions: Service Date/Time: December 13:01 - CONCLUSION: 1. Small segmental emboli within the right upper and middle lobe pulmonary artery branches. 2. Stable centrilobular emphysema. 3. Focal scarring within the lateral aspect of the right lower lobe. 4. Coronary artery calcifications. Abe Maldonado MD ADDENDUM: I reviewed the CT pulmonary angiogram on 12/19/[address] Ramsay. 2 small apparent filling defects are seen on series 4 images 50 and 51 associated with moderate artifact from bolus in the superior vena cava. Venous Doppler of enlarged images negative. Index of suspicion is low This may well be artifact. Ventilation/perfusion scan will be obtained tonight to ascertain whether this is artifact or clot. Bill San MD FACR Objective Remarks GENERAL: This is a well-nourished, well-developed patient, in no apparent distress. SKIN: No rashes, ecchymoses or lesions. Cool and dry. HEAD: Atraumatic. Normocephalic. No temporal or scalp tenderness. EYES: Pupils equal round and reactive. Extraocular motions intact. No scleral icterus. No injection or drainage. ENT: Nose without bleeding, purulent drainage or septal hematoma. Throat without erythema, tonsillar hypertrophy or exudate. Uvula midline. Airway patent. NECK: Trachea midline. No JVD or lymphadenopathy. Supple, nontender, no meningeal signs. CARDIOVASCULAR: Regular rate and rhythm without murmurs, gallops, or rubs. RESPIRATORY: Clear to auscultation. Breath sounds equal bilaterally. No wheezes , rales, or rhonchi. GASTROINTESTINAL: Abdomen soft, non-tender, nondistended. No hepato-splenomegaly , or palpable masses. No guarding. MUSCULOSKELETAL: Extremities without clubbing, cyanosis, or edema. No joint tenderness, effusion, or edema noted. No calf tenderness. Negative Homans sign bilaterally. NEUROLOGICAL: Awake and alert. Cranial nerves II through XII intact. Motor and sensory grossly within normal limits. Five out of 5 muscle strength in all muscle groups. Normal speech. Medications and IVs Current Medications Medications (Trade) Dose Ordered Sig/Libby Route Start Time Stop Time Status Last Admin Heparin Sodium/ Dextrose 250 ml @ 12 mls/hr TITRATE PRN IV 12/19/17 13:45 12/23/17 20:00 12/21/17 12:17 (NS Flush) 2 ml UNSCH PRN IV FLUSH 12/19/17 16:30 (NS Flush) 2 ml BID IV FLUSH 12/19/17 21:00 12/21/17 09:00 (Tylenol) 650 mg Q4H PRN PO 12/19/17 16:30 (Zofran Inj) 4 mg Q6H PRN IVP 12/19/17 16:30 12/20/17 16:29 (Narcan Inj) 0.4 mg UNSCH PRN IV PUSH 12/19/17 16:30 (Melissa-Colace) 1 tab BID PO 12/19/17 21:00 12/21/17 09:00 (Milk Of Magnesia Liq) 30 ml Q12H PRN PO 12/19/17 16:30 (Senokot) 17.2 mg Q12H PRN PO 12/19/17 16:30 (Dulcolax Supp) 10 mg DAILY PRN RECTAL 12/19/17 16:30 (Lactulose Liq) 30 ml DAILY PRN PO 12/19/17 16:30 (Proair Hfa Inh) 2 puff Q4H PRN INH 12/19/17 17:45 (Xanax) 1 mg BID PO 12/19/17 21:00 12/21/17 09:00 (Lipitor) 80 mg DAILY PO 12/20/17 09:00 12/21/17 09:00 (Neurontin) 600 mg BID PO 12/19/17 21:00 12/21/17 09:00 (Imdur) 60 mg BID@0900,1800 PO 12/19/17 21:00 12/21/17 09:00 (Prinivil) 10 mg DAILY PO 12/20/17 09:00 12/21/17 09:00 (Roxicodone) 30 mg Q6H PRN PO 12/19/17 17:45 12/21/17 14:28 (Protonix) 40 mg DAILY PO 12/20/17 15:45 12/21/17 09:00 (Mag-Al Plus Susp Liq) 30 ml Q6H PRN PO 12/20/17 15:45 (Plavix) 75 mg DAILY PO 12/21/17 09:00 12/21/17 09:00 (Effient) 10 mg DAILY PO 12/21/17 09:00 12/21/17 09:00 A/P Problem List: (1) Pulmonary embolism ICD Code: I26.99 - Other pulmonary embolism without acute cor pulmonale Plan: Admit the patient to the medical floor. CT pulmonary angiogram as described above showed a small segmental emboli within the right upper and middle lobe pulmonary artery branches. Stable centrilobular emphysema. Focal scarring within the lateral aspect of the right lower lobe. Coronary artery calcifications. The patient has been started on heparin drip the emergency department which was continued. Effient and aspirin also continued. We will check a 2D echocardiogram. 12/20 hematology consulted and case discussed with Dr. Ramsay. He states that we will see the patient later but he stated that the combination of heparin or any other anticoagulant with Effient has a major risk of increased bleeding. He suggested cardiology consultation which was ordered. Cardiology recommended switching Effient to Plavix and starting one of the novel anticoagulation available in the market. Hematology suggested Eliquis. 12/21 no changes were made last night, since after discussing the case with Dr. Whyte he indicated that a VQ scan will be ordered and decision on further treatment will be taken after the CT scan. VQ scan is low probability for PE, more consistent with COPD and emphysema. Case discussed with Dr. Moss from hematology who states that he discussed the case with radiology to have the reading reviewed and diagnosis of PE taken away. However Dr. Van does not feel comfortable discontinuing antic regulation since patient had symptoms concordant with PE. The patient oxygen saturation is in the lower 90s, chest x- ray ordered today shows no acute disease. As per hematology recommendations I will transition the patient from heparin IV drip to Eliquis tonight and start the patient on Plavix in a.m. Admit the patient to the medical floor. CT pulmonary angiogram as described above showed a small segmental emboli within the right upper and middle lobe pulmonary artery branches. Stable centrilobular emphysema. Focal scarring within the lateral aspect of the right lower lobe. Coronary artery calcifications. The patient has been started on heparin drip the emergency department which was continued. Effient and aspirin also continued. We will check a 2D echocardiogram. 12/20 hematology consulted and case discussed with Dr. Ramsay. He states that we will see the patient later but he stated that the combination of heparin or any other anticoagulant with Effient has a major risk of increased bleeding. He suggested cardiology consultation which was ordered. Cardiology recommended switching Effient to Plavix and starting one of the novel anticoagulation available in the market. Hematology suggested Eliquis. I will start the patient on Eliquis to be started tonight, DC IV heparin drip before Eliquis is started and will DC Effient and start patient on Plavix. (2) Pleuritic chest pain ICD Code: R07.81 - Pleurodynia Plan: Pleuritic chest pain likely secondary to pulmonary emboli. Continue home pain medications. (3) CAD (coronary artery disease) ICD Code: I25.10 - Atherosclerotic heart disease of [place] coronary artery without angina pectoris Status: Chronic Plan: Patient complains of chest pain, however troponins have been negative 2. EKG reviewed by me shows sinus rhythm without any significant ST-T changes. Appreciate cardiology recommendations. Cardiology recommended bilateral extremity venous Doppler and consideration of IVC filter. Venous Dopplers negative for DVT, at this point I do not see a clear indication for an IVC filter placement as the patient has not failed oral anticoagulation and there is no DVT present at this time. (4) COPD (chronic obstructive pulmonary disease) ICD Code: J44.9 - Chronic obstructive pulmonary disease, unspecified Status: Chronic Plan: Not an exacerbation. Continue duo nebs as needed. (5) Hyperlipidemia ICD Code: E78.5 - Hyperlipidemia, unspecified Status: Chronic Plan: Continue statin (6) Hypertension ICD Code: I10 - Hypertension Status: Acute Plan: Blood pressure seems to be stable. Continue lisinopril. (7) Syncope ICD Code: R55 - Syncope and collapse Status: Acute Plan: Patient has had multiple episodes of syncope. In this opportunity I believe the syncope is related to the pulmonary embolism. Cardiology consulted follow-up recommendations. Continue to monitor on telemetry, no arrhythmias reported. (8) Epigastric abdominal pain ICD Code: R10.13 - Epigastric pain Plan: The patient is complaining of epigastric burning pain. Upon review of records the patient had a recent EGD with colonoscopy on February 15, 2017. At that time he was found to the patient had esophagitis, mild gastritis in the gastric antrum, duodenal inflammation was found in the bulb and second portion of the duodenum. Patient was started on PPI and instructed to avoid NSAIDs at the time. Pathology report of the esophagus biopsy reported such as esophageal mucosa with moderate chronic inflammation. Negative for intestinal metaplasia, dysplasia or malignancy. On patient current home medication reconciliation form, Protonix is not 1 of the medications listed. I will start the patient on Protonix 40 mg p.o. daily and Maalox as needed for epigastric pain. 2/10 epigastric pain improved. continue PPI and Maalox. Patient to follow up with GI as an outpatient. Assessment and Plan GI prophylaxis: Start PPI. DVT prophylaxis: Patient on heparin drip, this will be discontinued the patient will be started on Eliquis. Discharge Planning Discharge pending clinical improvement of epigastric pain and successful transition of IV to oral anticoagulation. Problem Qualifiers (1) Pulmonary embolism: (2) CAD (coronary artery disease): Qualified Codes: I25.10 - Atherosclerotic heart disease of [place] coronary artery without angina pectoris (3) Hyperlipidemia: Qualified Codes: E78.5 - Hyperlipidemia, unspecified (4) Hypertension: Qualified Codes: I10 - Essential (primary) hypertension (5) Syncope: Praveen Matthews MD Dec 21, 2017 15:27
--- NOTE | 2017-12-21 17:36 | MB ---
cc: ESTHERMARIA RAMADOU DATE OF CONSULTATION: 12/21/2017. REASON FOR CONSULTATION: Bilateral inguinal hernias. PHYSICIAN REQUESTING THE CONSULTATION: Giovanny Vázquez MD. HISTORY OF PRESENT ILLNESS: The patient is a 62-year-old male who presented to [facility] with shortness of breath. The patient was admitted and underwent workup and it was concerning that possibly developed a pulmonary embolism. The patient does have a significant past medical history of cardiac disease as well as antiplatelet therapy for multiple cardiac stents. During the patient's acute admission, he did complain of worsening inguinal pain bilaterally. The patient has a known history of inguinal hernia and has never had a history of incarceration or previous repair. The patient denies any obstructive symptoms, but states they are "more painful than usual". This prompted general surgery consultation and evaluation acutely for possible complication of the patient's hernia. REVIEW OF SYSTEMS: A twelve-point review of systems was gone over with the patient and is negative except for the pertinent positives mentioned above in the history of present illness. PAST MEDICAL HISTORY: 1. Coronary artery disease. 2. COPD. 3. Hypertension. 4. Hyperlipidemia. 5. Gastroesophageal reflux disease (GERD). PAST SURGICAL HISTORY: 1. Cardiac stents. 2. CABG. 3. No previous attempt at hernia repair. ALLERGIES: 1. TORADOL. 2. PENICILLIN. FAMILY HISTORY: Strong family history of heart disease. SOCIAL HISTORY: Tobacco user. Marijuana user. Denies illicit drug use or alcohol use. CURRENT INPATIENT MEDICATIONS: 1. Plavix. 2. Lisinopril. 3. Oxycodone. 4. Xanax. 5. Heparin drip. PHYSICAL EXAMINATION: VITAL SIGNS: Temperature 97.7 degrees, blood pressure 128/68, heart rate 83, O2 saturations 93% on room air. GENERAL: The patient is a chronically ill-appearing male appearing older than his stated age. He is in no acute distress. He is awake and alert. HEAD, EYES, EARS, NOSE, THROAT: Head is normocephalic and atraumatic. Pupils equal, round and reactive to light. The sclerae are nonicteric. The oral cavity is clear. The airway is patent. NECK: The neck is supple. No jugular venous distention. RESPIRATORY: Breath sounds present bilaterally. Nonlabored breathing pattern. HEART: Regular rate and rhythm. No murmurs. ABDOMEN: Abdomen soft. There are surgical scars. Normal bowel sounds. No organomegaly. No ascites. Bilateral inguinal hernias are noted and these seems to be indirect and reducible with minimal effort and without significant discomfort. BACK: No costovertebral angle tenderness. EXTREMITIES: No cyanosis, clubbing or edema. NEUROLOGIC: The patient is alert and oriented times three with a nonfocal peripheral exam. Cranial nerves II through XII are grossly intact. ASSESSMENT AND PLAN: The patient is a 62-year-old male with bilateral inguinal hernias symptomatic. The patient has no acute complication of the hernia such as obstruction or strangulation and it is readily reducible. It would be repaired electively due to the patient's symptoms. I discussed this with him. However the patient currently with his acute medical condition needs anticoagulation and he is at high risk for bleeding and I do not recommend any operative repair at this time or in the immediate future. The patient should be cleared by his medical doctors including a buildings and grounds coordinator for a possible window to repair these hernias electively as an outpatient. My contact information was provided to the patient so he can follow up for elective repair. I answered all the questions to his satisfaction. Thank you very much for this consultation. There is no acute surgical intervention required and will sign off the case. MD CORDELIA Burger/[place] /5:03 PM /5:21 PM
[2017-12-21] MEDS: APIXABAN 5 MG TABLET PO SCH (22:56)
[2017-12-22] VITALS (8 sets, daily range): BP systolic 82–133; BP diastolic 52–80; PULSE 81–100; RESP 18–20; TEMP 98.1–99.2; O2SAT 88–97
[2017-12-22] MEDS ORDERED: SODIUM CHLORID 0.9% 500 ML INJ 500 ML IV ONE ×2 (00:30→09:45)
[2017-12-22 01:40] LABS: HEMOGLOBIN 12.3 GM/DL (13.0-17.0)
[2017-12-22 02:27] LABS: TROPONIN I 0.02 NG/ML (0.02-0.05)
[2017-12-22] MEDS: ALPRAZolam 1 MG TAB PO SCH ×3 (02:41→21:23)
--- NOTE | 2017-12-22 07:16 | HHI.PR ---
Addendum to Inpatient Note Addendum Reason: Additional Documentation Additional Information S: Silvina called at 0030 for acute change in patient status per nursing report. Patient endorsing 10/10 crushing chest pain that radiates down his arm and up his neck. He states that he has extensive cardiovascular history with multiple stents and CABG. Patient endorses diaphoresis, shortness of breath, and nausea at this time. He denies any fevers, chills, V/D, or calf tenderness. O: GENERAL: Well-nourished, well-developed male lying in bed in no acute distress. SKIN: Warm and dry. No rash. HEENT: Atraumatic, normocephalic with extraocular motions intact. No rhinorrhea. No visible lymphadenopathy or jugulovenous distension appreciated. CARDIOVASCULAR: Regular rate and rhythm without obvious murmurs, gallops, or rubs. 2+ pulses in all four extremities. RESPIRATORY: Clear to auscultation bilaterally with no crackles, wheezes, or rhonchi. No increased work of breathing. GASTROINTESTINAL: Abdomen soft, non-tender, nondistended with positive bowel sounds. No masses appreciated. MUSCULOSKELETAL: No cyanosis or edema. No calf tenderness. NEURO/PSYCH: Afocal. Awake, alert, and oriented x3. Patient appears anxious with multiple repetitive movements. A/P: 1. Chest pain -Due to patient's extensive cardiac history with current chest pain, ACS workup recommended with serial EKGs/troponin -Patient also appears anxious at this time concerning for possible anxiety attack versus possible withdrawal, previous UDS negative without ethanol level -Per nursing report primary care team has ordered 250 mL bolus, troponin, and stat EKG -At this time primary care team to resume management Kenji Barrett MD R2 Dec 22, 2017 07:16
[2017-12-22] MEDS: ISOSORBIDE MONONITRATE 60 MG TAB PO SCH ×2 (08:00→16:14)
--- NOTE | 2017-12-22 09:04 | PD.ONC.PN ---
Subjective Subjective Remarks Afebrile No bleeding C/o all over body aches "I feel like I'm getting the flu" Crushing chest pain that he had last night has subsided Shortness of breath unchanged Objective Data Date Time Temp Pulse Resp B/P (MAP) Pulse Ox O2 Delivery O2 Flow Rate FiO2 12/22/17 04:00 98.9 82 20 94/56 (69) 96 12/22/17 03:48 83 12/22/17 00:20 81 18 100/60 (73) 97 12/22/17 00:05 98.9 81 20 89/52 (64) 94 82/52 (62) 12/21/17 23:42 79 12/21/17 20:00 97.5 86 20 102/57 (72) 94 12/21/17 19:44 82 12/21/17 12:00 97.4 87 17 108/59 (75) 92 12/21/17 11:56 92 12/22/17 12/22/17 12/22/17 07:00 15:00 23:00 Intake Total 325 ml Output Total 600 ml Balance -275 ml Result Diagram: 12/22/17 0049 12/21/17 0936 Laboratory Results Laboratory Tests Test 12/21/17 09:36 12/21/17 16:32 12/22/17 00:49 White Blood Count 10.4 TH/MM3 Red Blood Count 4.70 MIL/MM3 Hemoglobin 14.4 GM/DL 12.3 GM/DL Hematocrit 42.1 % 36.0 % Mean Corpuscular Volume 89.5 FL Mean Corpuscular Hemoglobin 30.6 PG Mean Corpuscular Hemoglobin Concent 34.2 % Red Cell Distribution Width 14.1 % Platelet Count 243 TH/MM3 Mean Platelet Volume 8.3 FL Activated Partial Thromboplast Time 37.5 SEC 31.5 SEC Blood Urea Nitrogen 17 MG/DL Creatinine 1.21 MG/DL Random Glucose 102 MG/DL Calcium Level 8.9 MG/DL Sodium Level 138 MEQ/L Potassium Level 4.5 MEQ/L Chloride Level 100 MEQ/L Carbon Dioxide Level 34.0 MEQ/L Anion Gap 4 MEQ/L Estimat Glomerular Filtration Rate 61 ML/MIN Total Creatine Kinase 114 U/L Troponin I 0.02 NG/ML Administered Medications Medications (Trade) Dose Ordered Sig/Libby Route PRN Reason Start Time Stop Time Status Last Admin Dose Admin Sodium Chloride (NS Flush) 2 ml BID IV FLUSH 12/19/17 21:00 12/21/17 22:57 Ondansetron HCl (Zofran Inj) 4 mg Q6H PRN IVP NAUSEA OR VOMITING 12/19/17 16:30 12/20/17 16:29 Senna/Docusate Sodium (Melissa-Colace) 1 tab BID PO 12/19/17 21:00 12/21/17 22:56 Alprazolam (Xanax) 1 mg BID PO 12/19/17 21:00 12/22/17 02:41 Atorvastatin Calcium (Lipitor) 80 mg DAILY PO 12/20/17 09:00 12/21/17 09:00 Gabapentin (Neurontin) 600 mg BID PO 12/19/17 21:00 12/21/17 22:56 Isosorbide Mononitrate (Imdur) 60 mg BID@0900,1800 PO 12/19/17 21:00 12/21/17 09:00 Lisinopril (Prinivil) 10 mg DAILY PO 12/20/17 09:00 12/21/17 09:00 Oxycodone HCl (Roxicodone) 30 mg Q6H PRN PO PAIN 1-10 12/19/17 17:45 12/21/17 23:01 Pantoprazole Sodium (Protonix) 40 mg DAILY PO 12/20/17 15:45 12/21/17 09:00 Clopidogrel Bisulfate (Plavix) 75 mg DAILY PO 12/21/17 09:00 12/21/17 09:00 Apixaban (Eliquis) 5 mg BID PO 12/21/17 21:00 12/21/17 22:56 Objective Remarks GENERAL: Older male asleep in bed on approach. Awakens easily to verbal stimuli SKIN: Warm and dry. HEAD: Normocephalic. EYES: No injection or drainage. NECK: Supple, trachea midline. CARDIOVASCULAR: Regular rate and rhythm without murmurs. RESPIRATORY: Clear anteriorly. GASTROINTESTINAL: Abdomen protuberant but soft. EXTREMITIES: No cyanosis, or edema. MUSCULOSKELETAL: Adequate muscle tone. NEUROLOGICAL: No obvious focal deficit. Awake, alert, and oriented x3. Assessment/Plan Problem List: (1) Pulmonary embolism ICD Codes: I26.99 - Other pulmonary embolism without acute cor pulmonale Plan: -- CTA showed possible pulmonary embolus -- VQ scan showed findings consistent with COPD and emphysema Assessment Patient admitted after a syncopal episode and CTA showed possible pulmonary embolism Plan 1. Pt was bridged from heparin to Eliquis per primary. 2. Also now on Plavix for cardiac history. 3. Monitor CBC. Monitor for bleeding. Attending Statement The exam, history, and the medical decision-making described in the above note were completed with the assistance of the mid-level provider. I reviewed and agree with the findings presented. I attest that I had a [id number] encounter with the patient on the same day, and personally performed and documented my assessment and findings in the medical record. Events noted. Has chest pain last night but better. c/o weakness. SOB stable. No bleeding. Continue Eliquis. Discussed with 12/21. Problem Qualifiers (1) Pulmonary embolism: Sharonda Sanches Dec 22, 2017 09:04 Ozzy Van MD Dec 22, 2017 12:19
[2017-12-22] MEDS: GABAPENTIN 300 MG CAP PO SCH ×2 (09:19→21:24)
[2017-12-22] MEDS: PANTOPRAZOLE SOD 40 MG DELAYED RELEASE TAB PO SCH (09:19)
[2017-12-22] MEDS: DOCUSATE SODIUM 50 MG/SENNA 8.6 MG TAB PO SCH ×2 (09:19→21:24)
[2017-12-22] MEDS: SODIUM CHLORIDE 0.9% FLUSH 10 ML FLUSH IV FLUSH SCH ×2 (09:20→21:27)
[2017-12-22] MEDS: LISINOPRIL 10 MG TAB PO SCH (09:20)
[2017-12-22] MEDS: ATORVASTATIN 80 MG TAB PO SCH (09:20)
[2017-12-22] MEDS: CLOPIDOGREL 75 MG TAB PO SCH (11:31)
[2017-12-22] MEDS: APIXABAN 5 MG TABLET PO SCH ×2 (11:31→21:23)
--- NOTE | 2017-12-22 15:15 | HHI.PR ---
Subjective Remarks PAtient states he does not feel well. Patient hypotensive overnight down to a bp of 89/52 - sp 500 ml normal saline bolus. BP improving this am but still hypotensive with sbp in the 90's. Bp better after IVF bolus. Denies cp/sob but states that he has generalized pain and does not feel well. Patient states he cannot explain well how he feels. hemoglobin dropped down to 12.3. Objective Vitals Vital Signs Date Time Temp Pulse Resp B/P (MAP) Pulse Ox O2 Delivery O2 Flow Rate FiO2 12/22/17 08:00 98.9 87 20 110/64 (79) 88 12/22/17 04:00 98.9 82 20 94/56 (69) 96 12/22/17 03:48 83 12/22/17 00:20 81 18 100/60 (73) 97 12/22/17 00:05 98.9 81 20 89/52 (64) 94 82/52 (62) 12/21/17 23:42 79 12/21/17 20:00 97.5 86 20 102/57 (72) 94 12/21/17 19:44 82 I/O 12/21/17 12/21/17 12/21/17 12/22/17 12/22/17 12/22/17 07:00 15:00 23:00 07:00 15:00 23:00 Intake Total 240 ml 960 ml 325 ml Output Total 1100 ml 600 ml Balance 240 ml -140 ml -275 ml Intake Oral 240 ml 960 ml 325 ml Output Urine Total 1100 ml 600 ml # Voids 4 # Bowel Movements 0 2 0 Result Diagram: 12/22/17 0049 12/21/17 0936 Imaging Last Impressions Chest X-Ray 12/21/17 0000 Signed Impressions: Service Date/Time: Thursday, December 21, 2017 11:31 - CONCLUSION: No acute disease. Ronna Silverio MD Abdomen/Pelvis CT 12/21/17 0000 Signed Impressions: Service Date/Time: Thursday, December 21, 2017 02:12 - CONCLUSION: 1. Bilateral inguinal hernias containing a loop of bowel but without evidence for obstruction. No free fluid or free air. Hank Snell MD Lung Scan- Nuclear Medicine 12/20/17 0000 Signed Impressions: Service Date/Time: Thursday, December 21, 2017 13:00 - CONCLUSION: Findings consistent with COPD and emphysema. No lobar or segmental defects appreciated and no evidence of mismatch. Oren Caldwell MD Lower Extremity Ultrasound 12/20/17 0000 Signed Impressions: Service Date/Time: Wednesday, December 20, 2017 09:06 - CONCLUSION: Negative for deep venous thrombosis. Bill San MD FACR Head CT 12/19/17 1111 Signed Impressions: Service Date/Time: December 12:53 - CONCLUSION: No acute intracranial disease. Abe Maldonado MD Cervical Spine CT 12/19/17 1111 Signed Impressions: Service Date/Time: December 12:53 - CONCLUSION: 1. No acute fracture or prevertebral soft tissue swelling. 2. Diffuse cervical spondylosis. 3. Stable bilateral foraminal narrowing from C3 through T1. 4. Grade I anterolisthesis of C3 in relation to C4. 5. Scoliosis of the cervical spine. 6. Scattered emphysematous changes within the lung apices. 7. Air is noted within the marrow of the posterior medial right first rib. Abe Maldonado MD CT Angiography 12/19/17 1111 Signed Impressions: Service Date/Time: December 13:01 - CONCLUSION: 1. Small segmental emboli within the right upper and middle lobe pulmonary artery branches. 2. Stable centrilobular emphysema. 3. Focal scarring within the lateral aspect of the right lower lobe. 4. Coronary artery calcifications. Abe Maldonado MD ADDENDUM: I reviewed the CT pulmonary angiogram on 12/19/[address] Ramsay. 2 small apparent filling defects are seen on series 4 images 50 and 51 associated with moderate artifact from bolus in the superior vena cava. Venous Doppler of enlarged images negative. Index of suspicion is low This may well be artifact. Ventilation/perfusion scan will be obtained tonight to ascertain whether this is artifact or clot. Bill San MD FACR Objective Remarks GENERAL: This is a well-nourished, well-developed patient, in no apparent distress, sleepy. SKIN: No rashes, ecchymoses or lesions. Cool and dry. HEAD: Atraumatic. Normocephalic. No temporal or scalp tenderness. EYES: Pupils equal round and reactive. Extraocular motions intact. No scleral icterus. No injection or drainage. ENT: Nose without bleeding, purulent drainage or septal hematoma. Throat without erythema, tonsillar hypertrophy or exudate. Uvula midline. Airway patent. NECK: Trachea midline. No JVD or lymphadenopathy. Supple, nontender, no meningeal signs. CARDIOVASCULAR: Regular rate and rhythm without murmurs, gallops, or rubs. RESPIRATORY: Clear to auscultation. Breath sounds equal bilaterally. No wheezes , rales, or rhonchi. GASTROINTESTINAL: Abdomen soft, non-tender, nondistended. No hepato-splenomegaly , or palpable masses. No guarding. MUSCULOSKELETAL: Extremities without clubbing, cyanosis, or edema. No joint tenderness, effusion, or edema noted. No calf tenderness. Negative Homans sign bilaterally. NEUROLOGICAL: Awake and alert. Cranial nerves II through XII intact. Motor and sensory grossly within normal limits. Five out of 5 muscle strength in all muscle groups. Normal speech. Procedures none Medications and IVs Current Medications Medications (Trade) Dose Ordered Sig/Libby Route Start Time Stop Time Status Last Admin (NS Flush) 2 ml UNSCH PRN IV FLUSH 12/19/17 16:30 (NS Flush) 2 ml BID IV FLUSH 12/19/17 21:00 12/22/17 09:20 (Tylenol) 650 mg Q4H PRN PO 12/19/17 16:30 (Zofran Inj) 4 mg Q6H PRN IVP 12/19/17 16:30 12/20/17 16:29 (Narcan Inj) 0.4 mg UNSCH PRN IV PUSH 12/19/17 16:30 (Melissa-Colace) 1 tab BID PO 12/19/17 21:00 12/22/17 09:19 (Milk Of Magnesia Liq) 30 ml Q12H PRN PO 12/19/17 16:30 (Senokot) 17.2 mg Q12H PRN PO 12/19/17 16:30 (Dulcolax Supp) 10 mg DAILY PRN RECTAL 12/19/17 16:30 (Lactulose Liq) 30 ml DAILY PRN PO 12/19/17 16:30 (Proair Hfa Inh) 2 puff Q4H PRN INH 12/19/17 17:45 (Xanax) 1 mg BID PO 12/19/17 21:00 2/11/18 09:19 (Lipitor) 80 mg DAILY PO 12/20/17 09:00 12/22/17 09:20 (Neurontin) 600 mg BID PO 12/19/17 21:00 12/22/17 09:19 (Imdur) 60 mg BID@0900,1800 PO 12/19/17 21:00 12/21/17 09:00 (Prinivil) 10 mg DAILY PO 12/20/17 09:00 12/22/17 09:20 (Roxicodone) 30 mg Q6H PRN PO 12/19/17 17:45 12/22/17 10:38 (Protonix) 40 mg DAILY PO 12/20/17 15:45 12/22/17 09:19 (Mag-Al Plus Susp Liq) 30 ml Q6H PRN PO 12/20/17 15:45 (Plavix) 75 mg DAILY PO 12/21/17 09:00 12/22/17 11:31 (Eliquis) 5 mg BID PO 12/21/17 21:00 12/22/17 11:31 A/P Problem List: (1) Pulmonary embolism ICD Code: I26.99 - Other pulmonary embolism without acute cor pulmonale (2) Pleuritic chest pain ICD Code: R07.81 - Pleurodynia (3) CAD (coronary artery disease) ICD Code: I25.10 - Atherosclerotic heart disease of [place] coronary artery without angina pectoris Status: Chronic (4) COPD (chronic obstructive pulmonary disease) ICD Code: J44.9 - Chronic obstructive pulmonary disease, unspecified Status: Chronic (5) Hyperlipidemia ICD Code: E78.5 - Hyperlipidemia, unspecified Status: Chronic (6) Hypertension ICD Code: I10 - Hypertension Status: Acute (7) Syncope ICD Code: R55 - Syncope and collapse Status: Acute (8) Epigastric abdominal pain ICD Code: R10.13 - Epigastric pain (9) Anemia ICD Code: D64.9 - Anemia, unspecified Plan: Patient's hemoglobin noted to be trending down from 14.4-12.3, today's a.m. labs are still pending. Will check stool guaiac. Continue to monitor hemoglobin and transfuse as needed for hemoglobin of less than 8 if active bleeding, less than 7 or symptomatic anemia. (10) Hypotension ICD Code: I95.9 - Hypotension, unspecified Plan: Hold Imdur and antihypertensive medications for now. Continue to monitor vital signs. Assessment and Plan (1) Pulmonary embolism The patient was admitted to the medical floor, monitor on telemetry. CT pulmonary angiogram as described above showed a small segmental emboli within the right upper and middle lobe pulmonary artery branches. Stable centrilobular emphysema. Focal scarring within the lateral aspect of the right lower lobe. Coronary artery calcifications. The patient was started on IV heparin drip in the emergency department and this was continued during hospitalization. Effient and aspirin also continued since patient had coronary stents. Hematology consulted and case discussed with Dr. Ramsay. He stated that we will see the patient later but he stated that the combination of heparin or any other anticoagulant with Effient has a major risk of increased bleeding. He suggested cardiology consultation which was ordered. Cardiology recommended switching Effient to Plavix and starting one of the novel anticoagulation available in the market. Hematology suggested Eliquis. VQ scan was ordered as per Dr. Ramsay's recommendation. VQ scan was low probability for PE, consistent with COPD and emphysema. Case discussed with Dr. Moss from hematology who states that he discussed the case with radiology to have the reading reviewed and diagnosis of PE taken away. However Dr. Van does not feel comfortable discontinuing antic regulation since patient had symptoms concordant with PE. The patient oxygen saturation is in the lower 90s on 12/21, chest x-ray ordered today shows no acute disease. 12/22 DC IV heparin and transition to Eliquis. Dc Aspirin and effient, will start on Plavix as per study coordinator recommendations. Admit the patient to the medical floor. CT pulmonary angiogram as described above showed a small segmental emboli within the right upper and middle lobe pulmonary artery branches. Stable centrilobular emphysema. Focal scarring within the lateral aspect of the right lower lobe. Coronary artery calcifications. The patient has been started on heparin drip the emergency department which was continued. Effient and aspirin also continued. We will check a 2D echocardiogram. 12/20 hematology consulted and case discussed with Dr. Ramsay. He states that we will see the patient later but he stated that the combination of heparin or any other anticoagulant with Effient has a major risk of increased bleeding. He suggested cardiology consultation which was ordered. Cardiology recommended switching Effient to Plavix and starting one of the novel anticoagulation available in the market. Hematology suggested Eliquis. I will start the patient on Eliquis to be started tonight, DC IV heparin drip before Eliquis is started and will DC Effient and start patient on Plavix. The patient has been hypotensive last night, status post IV bolus with IV normal saline by night team. Blood pressure still low this morning, ordered second IV fluid bolus with 500 mL's normal saline after which blood pressure improved. Noted the patient is hypoxemic into the high 80s. Provide supplemental oxygen to keep an oxygen saturation more than 92%. Chest x-ray obtained on December shows no acute disease. The patient continued to desat then I will repeat chest x-ray. (2) Pleuritic chest pain Continue home pain medications. (3) CAD (coronary artery disease) Plan: Patient complains of chest pain, however troponins have been negative 2. EKG reviewed by me shows sinus rhythm without any significant ST-T changes. Appreciate cardiology recommendations. Cardiology recommended bilateral extremity venous Doppler and consideration of IVC filter. Venous Dopplers negative for DVT, at this point I do not see a clear indication for an IVC filter placement as the patient has not failed oral anticoagulation and there is no DVT present at this time. (4) COPD (chronic obstructive pulmonary disease) Plan: Not an exacerbation. Continue duo nebs as needed. (5) Hyperlipidemia Plan: Continue statin (6) Hypertension Plan: Blood pressure seems to be stable. Continue lisinopril. (7) Syncope Plan: Patient has had multiple episodes of syncope. In this opportunity I believe the syncope is related to the pulmonary embolism. Cardiology consulted follow-up recommendations. Continue to monitor on telemetry, no arrhythmias reported. (8) Epigastric abdominal pain ICD Code: R10.13 - Epigastric pain Plan: The patient is complaining of epigastric burning pain. Upon review of records the patient had a recent EGD with colonoscopy on February 15, 2017. At that time he was found to the patient had esophagitis, mild gastritis in the gastric antrum, duodenal inflammation was found in the bulb and second portion of the duodenum. Patient was started on PPI and instructed to avoid NSAIDs at the time. Pathology report of the esophagus biopsy reported such as esophageal mucosa with moderate chronic inflammation. Negative for intestinal metaplasia, dysplasia or malignancy. On patient current home medication reconciliation form, Protonix is not 1 of the medications listed. I will start the patient on Protonix 40 mg p.o. daily and Maalox as needed for epigastric pain. 2/10 epigastric pain improved. continue PPI and Maalox. Patient to follow up with GI as an outpatient. GI prophylaxis: Start PPI. DVT prophylaxis: Patient on heparin drip, this will be discontinued the patient will be started on Eliquis. Discharge Planning Discharge pending clinical improvement of epigastric pain and successful transition of IV to oral anticoagulation. Problem Qualifiers (1) Pulmonary embolism: (2) CAD (coronary artery disease): Qualified Codes: I25.10 - Atherosclerotic heart disease of [place] coronary artery without angina pectoris (3) Hyperlipidemia: Qualified Codes: E78.5 - Hyperlipidemia, unspecified (4) Hypertension: Qualified Codes: I10 - Essential (primary) hypertension (5) Syncope: Praveen Matthews MD Dec 22, 2017 15:15
--- NOTE | 2017-12-22 16:59 | EKG ---
Date Performed: 12/22/2017 Time Performed: 00:24:42 PTAGE: 62 years EKG: Sinus rhythm . Septal T wave changes are nonspecific Borderline ECG PREVIOUS TRACING : 12/19/2017 10.46 Since the prior tracing, there has been no significant gutierrez DOCTOR: José Miguel Umanzor Interpretating Date/Time 12/22/2017 16:59:06
[2017-12-22 21:34] LABS: HEMATOCRIT 38.7 % (39.0-51.0); MEAN CELL VOLUME 89.5 FL (80.0-100.0); MEAN CORPUSCULAR HEMOGLOBIN 30.1 PG (27.0-34.0); MEAN CORPUSCULAR HGB CONC 33.6 % (32.0-36.0); MEAN PLATELET VOLUME 8.5 FL (7.0-11.0); PLATELET COUNT 197 TH/MM3 (150-450); RED BLOOD COUNT 4.32 MIL/MM3 (4.50-5.90); RED CELL DISTRIBUTION WIDTH 14.3 % (11.6-17.2); WHITE BLOOD COUNT 11.9 TH/MM3 (4.0-11.0)
[2017-12-23] VITALS: BP 96/68; PULSE 80; RESP 16; TEMP 98.9; O2SAT 93
[2017-12-23 04:55] VITALS: BP 110/91; PULSE 91; RESP 18; TEMP 98.6; O2SAT 99
[2017-12-23 08:04] VITALS: BP 100/57; PULSE 89; RESP 16; TEMP 98.4; O2SAT 93
[2017-12-23] MEDS: APIXABAN 5 MG TABLET PO SCH (08:14)
[2017-12-23] MEDS: LISINOPRIL 10 MG TAB PO SCH ×2 (08:14→08:26)
[2017-12-23] MEDS: ATORVASTATIN 80 MG TAB PO SCH (08:15)
[2017-12-23] MEDS: CLOPIDOGREL 75 MG TAB PO SCH (08:15)
[2017-12-23] MEDS: DOCUSATE SODIUM 50 MG/SENNA 8.6 MG TAB PO SCH (08:15)
[2017-12-23] MEDS: ALPRAZolam 1 MG TAB PO SCH (08:15)
[2017-12-23] MEDS: GABAPENTIN 300 MG CAP PO SCH (08:15)
[2017-12-23] MEDS: PANTOPRAZOLE SOD 40 MG DELAYED RELEASE TAB PO SCH (08:16)
[2017-12-23] MEDS: SODIUM CHLORIDE 0.9% FLUSH 10 ML FLUSH IV FLUSH SCH (08:16)
[2017-12-23] MEDS: ISOSORBIDE MONONITRATE 60 MG TAB PO SCH (08:24)
--- NOTE | 2017-12-23 11:36 | HHI.PR ---
Subjective Remarks Patient still has borderline hypotension although blood pressure is improved. Patient is very sleepy and somewhat lethargic. Denies cp/sob. States does not feel good. Objective Vitals Vital Signs Date Time Temp Pulse Resp B/P (MAP) Pulse Ox O2 Delivery O2 Flow Rate FiO2 12/23/17 08:04 98.4 89 16 100/57 (71) 93 12/23/17 04:55 98.6 91 18 110/91 (97) 99 12/23/17 00:00 98.9 80 16 96/68 (77) 93 12/22/17 20:00 98.8 100 20 119/70 (86) 95 12/22/17 18:00 99.2 90 20 99/53 (68) 91 12/22/17 12:00 98.1 92 20 133/80 (97) 90 I/O 12/22/17 12/22/17 12/22/17 12/23/17 12/23/17 12/23/17 07:00 15:00 23:00 07:00 15:00 23:00 Intake Total 325 ml 500 ml 240 ml 480 ml Output Total 600 ml Balance -275 ml 500 ml 240 ml 480 ml Intake Oral 325 ml 240 ml 480 ml IV Total 500 ml Output Urine Total 600 ml # Voids 2 3 # Bowel Movements 0 0 0 Result Diagram: 12/22/17205612/21/17935 Imaging Last Impressions Chest X-Ray 12/21/17 0000 Signed Impressions: Service Date/Time: Thursday, December 21, 2017 11:31 - CONCLUSION: No acute disease. Ronna Silverio MD Abdomen/Pelvis CT 12/21/17 0000 Signed Impressions: Service Date/Time: Thursday, December 21, 2017 02:12 - CONCLUSION: 1. Bilateral inguinal hernias containing a loop of bowel but without evidence for obstruction. No free fluid or free air. Hank Snell MD Lung Scan- Nuclear Medicine 12/20/17 0000 Signed Impressions: Service Date/Time: Thursday, December 21, 2017 13:00 - CONCLUSION: Findings consistent with COPD and emphysema. No lobar or segmental defects appreciated and no evidence of mismatch. Oren Caldwell MD Lower Extremity Ultrasound 12/20/17 0000 Signed Impressions: Service Date/Time: Wednesday, December 20, 2017 09:06 - CONCLUSION: Negative for deep venous thrombosis. Bill San MD FACR Head CT 12/19/17 1111 Signed Impressions: Service Date/Time: December 12:53 - CONCLUSION: No acute intracranial disease. Abe Maldonado MD Cervical Spine CT 12/19/17 1111 Signed Impressions: Service Date/Time: December 12:53 - CONCLUSION: 1. No acute fracture or prevertebral soft tissue swelling. 2. Diffuse cervical spondylosis. 3. Stable bilateral foraminal narrowing from C3 through T1. 4. Grade I anterolisthesis of C3 in relation to C4. 5. Scoliosis of the cervical spine. 6. Scattered emphysematous changes within the lung apices. 7. Air is noted within the marrow of the posterior medial right first rib. Abe Maldonado MD CT Angiography 12/19/17 1111 Signed Impressions: Service Date/Time: December 13:01 - CONCLUSION: 1. Small segmental emboli within the right upper and middle lobe pulmonary artery branches. 2. Stable centrilobular emphysema. 3. Focal scarring within the lateral aspect of the right lower lobe. 4. Coronary artery calcifications. Abe Maldonado MD ADDENDUM: I reviewed the CT pulmonary angiogram on 12/19/[address] Ramsay. 2 small apparent filling defects are seen on series 4 images 50 and 51 associated with moderate artifact from bolus in the superior vena cava. Venous Doppler of enlarged images negative. Index of suspicion is low This may well be artifact. Ventilation/perfusion scan will be obtained tonight to ascertain whether this is artifact or clot. Bill San MD FACR Objective Remarks GENERAL: This is a well-nourished, well-developed patient, in no apparent distress, Lethargic. SKIN: No rashes, ecchymoses or lesions. Cool and dry. HEAD: Atraumatic. Normocephalic. No temporal or scalp tenderness. EYES: Pupils equal round and reactive. Extraocular motions intact. No scleral icterus. No injection or drainage. ENT: Nose without bleeding, purulent drainage or septal hematoma. Throat without erythema, tonsillar hypertrophy or exudate. Uvula midline. Airway patent. NECK: Trachea midline. No JVD or lymphadenopathy. Supple, nontender, no meningeal signs. CARDIOVASCULAR: Regular rate and rhythm without murmurs, gallops, or rubs. RESPIRATORY: Clear to auscultation. Breath sounds equal bilaterally. No wheezes , rales, or rhonchi. GASTROINTESTINAL: Abdomen soft, non-tender, nondistended. No hepato-splenomegaly , or palpable masses. No guarding. MUSCULOSKELETAL: Extremities without clubbing, cyanosis, or edema. No joint tenderness, effusion, or edema noted. No calf tenderness. Negative Homans sign bilaterally. NEUROLOGICAL: Awake and alert. Cranial nerves II through XII intact. Motor and sensory grossly within normal limits. Five out of 5 muscle strength in all muscle groups. Normal speech. Procedures none Medications and IVs Current Medications Medications (Trade) Dose Ordered Sig/Libby Route Start Time Stop Time Status Last Admin (NS Flush) 2 ml UNSCH PRN IV FLUSH 12/19/17 16:30 (NS Flush) 2 ml BID IV FLUSH 12/19/17 21:00 12/23/17 08:16 (Tylenol) 650 mg Q4H PRN PO 12/19/17 16:30 (Zofran Inj) 4 mg Q6H PRN IVP 12/19/17 16:30 12/20/17 16:29 (Narcan Inj) 0.4 mg UNSCH PRN IV PUSH 12/19/17 16:30 (Melissa-Colace) 1 tab BID PO 12/19/17 21:00 12/23/17 08:15 (Milk Of Magnesia Liq) 30 ml Q12H PRN PO 12/19/17 16:30 (Senokot) 17.2 mg Q12H PRN PO 12/19/17 16:30 (Dulcolax Supp) 10 mg DAILY PRN RECTAL 12/19/17 16:30 (Lactulose Liq) 30 ml DAILY PRN PO 12/19/17 16:30 (Proair Hfa Inh) 2 puff Q4H PRN INH 12/19/17 17:45 (Xanax) 1 mg BID PO 12/19/17 21:00 12/23/17 08:15 (Lipitor) 80 mg DAILY PO 12/20/17 09:00 12/23/17 08:15 (Neurontin) 600 mg BID PO 12/19/17 21:00 12/23/17 08:15 (Imdur) 60 mg BID@0900,1800 PO 12/19/17 21:00 12/23/17 08:24 (Prinivil) 10 mg DAILY PO 12/20/17 09:00 12/22/17 09:20 (Roxicodone) 30 mg Q6H PRN PO 12/19/17 17:45 12/23/17 05:04 (Protonix) 40 mg DAILY PO 12/20/17 15:45 12/23/17 08:16 (Mag-Al Plus Susp Liq) 30 ml Q6H PRN PO 12/20/17 15:45 (Plavix) 75 mg DAILY PO 12/21/17 09:00 12/23/17 08:15 (Eliquis) 5 mg BID PO 12/21/17 21:00 12/23/17 08:14 Urinary Catheter: No Vascular Central Line Catheter: No A/P Problem List: (1) Pulmonary embolism ICD Code: I26.99 - Other pulmonary embolism without acute cor pulmonale (2) Pleuritic chest pain ICD Code: R07.81 - Pleurodynia (3) CAD (coronary artery disease) ICD Code: I25.10 - Atherosclerotic heart disease of [place] coronary artery without angina pectoris Status: Chronic (4) COPD (chronic obstructive pulmonary disease) ICD Code: J44.9 - Chronic obstructive pulmonary disease, unspecified Status: Chronic (5) Hyperlipidemia ICD Code: E78.5 - Hyperlipidemia, unspecified Status: Chronic (6) Hypertension ICD Code: I10 - Hypertension Status: Acute (7) Syncope ICD Code: R55 - Syncope and collapse Status: Acute (8) Epigastric abdominal pain ICD Code: R10.13 - Epigastric pain (9) Anemia ICD Code: D64.9 - Anemia, unspecified Plan: Patient's hemoglobin noted to be trending down from 14.4-12.3, today's a.m. labs are still pending. Will check stool guaiac. Continue to monitor hemoglobin and transfuse as needed for hemoglobin of less than 8 if active bleeding, less than 7 or symptomatic anemia. 12/23 hemoglobin is a stable 12.2. Continue to monitor hemoglobin. (10) Hypotension ICD Code: I95.9 - Hypotension, unspecified Plan: Patient still with borderline hypotension. Suspect etiology is secondary to multiple causes. The patient is on high-dose of opiates, benzodiazepines, Imdur above the recommended dose and YOBANY inhibitor. I will decrease the dose of Imdur from 30 mg p.o. every 12 hours to 10 mg p.o. twice daily, decreased the dose of lisinopril from 10 mg p.o. daily to 2.5 mg p.o. daily. Aside from that I will hold benzodiazepines and opiates for now. (11) Encephalopathy acute ICD Code: G93.40 - Encephalopathy, unspecified Plan: Pathient is very lethargic. SPECT encephalopathies toxic secondary to opioid use as well as benzodiazepine use. I will discontinue benzodiazepines and opiates. The patient is taking a very elevated dose of 30 mg p.o. every 6 hours as needed and Lorazepam 1 mg p.o. twice daily. I believe the patient probably does not need such an elevated dose of benzodiazepines and opiates. I will discontinue them with the patient's more alert I will start the patient on Xanax which should be tapered off as an outpatient. Also if patient's a complaint of pain I will start the patient on oxycodone 5 mg as needed. Assessment and Plan (1) Pulmonary embolism The patient was admitted to the medical floor, monitor on telemetry. CT pulmonary angiogram as described above showed a small segmental emboli within the right upper and middle lobe pulmonary artery branches. Stable centrilobular emphysema. Focal scarring within the lateral aspect of the right lower lobe. Coronary artery calcifications. The patient was started on IV heparin drip in the emergency department and this was continued during hospitalization. Effient and aspirin also continued since patient had coronary stents. Hematology consulted and case discussed with Dr. Ramsay. He stated that we will see the patient later but he stated that the combination of heparin or any other anticoagulant with Effient has a major risk of increased bleeding. He suggested cardiology consultation which was ordered. Cardiology recommended switching Effient to Plavix and starting one of the novel anticoagulation available in the market. Hematology suggested Eliquis. VQ scan was ordered as per Dr. Ramsay's recommendation. VQ scan was low probability for PE, consistent with COPD and emphysema. Case discussed with Dr. Moss from hematology who states that he discussed the case with radiology to have the reading reviewed and diagnosis of PE taken away. However Dr. Van does not feel comfortable discontinuing antic regulation since patient had symptoms concordant with PE. The patient oxygen saturation is in the lower 90s on 12/21, chest x-ray ordered today shows no acute disease. 12/22 DC IV heparin and transition to Eliquis. Dc Aspirin and effient, will start on Plavix as per vp packaging recommendations. Admit the patient to the medical floor. CT pulmonary angiogram as described above showed a small segmental emboli within the right upper and middle lobe pulmonary artery branches. Stable centrilobular emphysema. Focal scarring within the lateral aspect of the right lower lobe. Coronary artery calcifications. The patient has been started on heparin drip the emergency department which was continued. Effient and aspirin also continued. We will check a 2D echocardiogram. 12/20 hematology consulted and case discussed with Dr. Ramsay. He states that we will see the patient later but he stated that the combination of heparin or any other anticoagulant with Effient has a major risk of increased bleeding. He suggested cardiology consultation which was ordered. Cardiology recommended switching Effient to Plavix and starting one of the novel anticoagulation available in the market. Hematology suggested Eliquis. 211 Continue eliquis and Plavix. No signs of bleeding. (2) Pleuritic chest pain Continue home pain medications. (3) CAD (coronary artery disease) Plan: Patient complains of chest pain, however troponins have been negative 2. EKG reviewed by me shows sinus rhythm without any significant ST-T changes. Appreciate cardiology recommendations. Cardiology recommended bilateral extremity venous Doppler and consideration of IVC filter. Venous Dopplers negative for DVT, at this point I do not see a clear indication for an IVC filter placement as the patient has not failed oral anticoagulation and there is no DVT present at this time. (4) COPD (chronic obstructive pulmonary disease) Plan: Not an exacerbation. Continue duo nebs as needed. (5) Hyperlipidemia Plan: Continue statin (6) Hypertension Plan: Blood pressure seems to be stable. Continue lisinopril. (7) Syncope Plan: Patient has had multiple episodes of syncope. In this opportunity I believe the syncope is related to the pulmonary embolism. Cardiology consulted follow-up recommendations. Continue to monitor on telemetry, no arrhythmias reported. (8) Epigastric abdominal pain ICD Code: R10.13 - Epigastric pain Plan: The patient is complaining of epigastric burning pain. Upon review of records the patient had a recent EGD with colonoscopy on February 15, 2017. At that time he was found to the patient had esophagitis, mild gastritis in the gastric antrum, duodenal inflammation was found in the bulb and second portion of the duodenum. Patient was started on PPI and instructed to avoid NSAIDs at the time. Pathology report of the esophagus biopsy reported such as esophageal mucosa with moderate chronic inflammation. Negative for intestinal metaplasia, dysplasia or malignancy. On patient current home medication reconciliation form, Protonix is not 1 of the medications listed. I will start the patient on Protonix 40 mg p.o. daily and Maalox as needed for epigastric pain. 2/10 epigastric pain improved. continue PPI and Maalox. Patient to follow up with GI as an outpatient. GI prophylaxis: PPI DVT prophylaxis: Patient on heparin drip, this will be discontinued the patient will be started on Eliquis. Discharge Planning Discharge pending clinical improvement of epigastric pain and successful transition of IV to oral anticoagulation. Problem Qualifiers (1) Pulmonary embolism: (2) CAD (coronary artery disease): Qualified Codes: I25.10 - Atherosclerotic heart disease of [place] coronary artery without angina pectoris (3) Hyperlipidemia: Qualified Codes: E78.5 - Hyperlipidemia, unspecified (4) Hypertension: Qualified Codes: I10 - Essential (primary) hypertension (5) Syncope: Praveen Matthews MD Dec 23, 2017 11:36
[2017-12-23 12:04] VITALS: BP 99/51; PULSE 79; RESP 16; TEMP 98.7; O2SAT 90
[2017-12-23 12:19] LABS: HEMATOCRIT 36.2 % (39.0-51.0); HEMOGLOBIN 12.2 GM/DL (13.0-17.0); MEAN CELL VOLUME 89.4 FL (80.0-100.0); MEAN CORPUSCULAR HEMOGLOBIN 30.2 PG (27.0-34.0); MEAN CORPUSCULAR HGB CONC 33.7 % (32.0-36.0); MEAN PLATELET VOLUME 8.7 FL (7.0-11.0); PLATELET COUNT 175 TH/MM3 (150-450); RED BLOOD COUNT 4.05 MIL/MM3 (4.50-5.90); RED CELL DISTRIBUTION WIDTH 14.2 % (11.6-17.2); WHITE BLOOD COUNT 7.9 TH/MM3 (4.0-11.0)
[2017-12-23] MEDS ORDERED: PILL SPLITTER OTHER PRN (12:30)
[2017-12-23 12:39] LABS: BICARBONATE 32.6 MEQ/L (21.0-32.0); CALCIUM 8.7 MG/DL (8.5-10.1); CREATININE 0.94 MG/DL (0.60-1.30)
--- NOTE | 2017-12-23 13:44 | PD.ONC.PN ---
Subjective Subjective Remarks Afebrile overnight. patient resting in bed. Tired of being in the hospital. Tolerating Eliquis and Plavix. Objective Data Date Time Temp Pulse Resp B/P (MAP) Pulse Ox O2 Delivery O2 Flow Rate FiO2 12/23/17 12:04 98.7 79 16 99/51 (67) 90 12/23/17 08:04 98.4 89 16 100/57 (71) 93 12/23/17 04:55 98.6 91 18 110/91 (97) 99 12/23/17 00:00 98.9 80 16 96/68 (77) 93 12/22/17 20:00 98.8 100 20 119/70 (86) 95 12/22/17 18:00 99.2 90 20 99/53 (68) 91 12/23/17 12/23/17 12/23/17 07:00 15:00 23:00 Intake Total 480 ml Balance 480 ml Result Diagram: 12/23/17 1130 12/23/17 1130 Laboratory Results Laboratory Tests Test 12/22/17 20:57 12/23/17 11:30 White Blood Count 11.9 TH/MM3 7.9 TH/MM3 Red Blood Count 4.32 MIL/MM3 4.05 MIL/MM3 Hemoglobin 13.0 GM/DL 12.2 GM/DL Hematocrit 38.7 % 36.2 % Mean Corpuscular Volume 89.5 FL 89.4 FL Mean Corpuscular Hemoglobin 30.1 PG 30.2 PG Mean Corpuscular Hemoglobin Concent 33.6 % 33.7 % Red Cell Distribution Width 14.3 % 14.2 % Platelet Count 197 TH/MM3 175 TH/MM3 Mean Platelet Volume 8.5 FL 8.7 FL Blood Urea Nitrogen 15 MG/DL Creatinine 0.94 MG/DL Random Glucose 108 MG/DL Calcium Level 8.7 MG/DL Sodium Level 139 MEQ/L Potassium Level 3.8 MEQ/L Chloride Level 101 MEQ/L Carbon Dioxide Level 32.6 MEQ/L Anion Gap 5 MEQ/L Estimat Glomerular Filtration Rate 82 ML/MIN Administered Medications Medications (Trade) Dose Ordered Sig/Libby Route PRN Reason Start Time Stop Time Status Last Admin Dose Admin Sodium Chloride (NS Flush) 2 ml BID IV FLUSH 12/19/17 21:00 12/23/17 08:16 Ondansetron HCl (Zofran Inj) 4 mg Q6H PRN IVP NAUSEA OR VOMITING 12/19/17 16:30 12/20/17 16:29 Senna/Docusate Sodium (Melissa-Colace) 1 tab BID PO 12/19/17 21:00 12/23/17 08:15 Atorvastatin Calcium (Lipitor) 80 mg DAILY PO 12/20/17 09:00 12/23/17 08:15 Gabapentin (Neurontin) 600 mg BID PO 12/19/17 21:00 Future Hold 12/23/17 08:15 Pantoprazole Sodium (Protonix) 40 mg DAILY PO 12/20/17 15:45 12/23/17 08:16 Clopidogrel Bisulfate (Plavix) 75 mg DAILY PO 12/21/17 09:00 12/23/17 08:15 Apixaban (Eliquis) 5 mg BID PO 12/21/17 21:00 12/23/17 08:14 Objective Remarks GENERAL: Middle aged male, lying in bed in nad. SKIN: Warm and dry. HEAD: Normocephalic. EYES: No injection or drainage. NECK: Supple, trachea midline. CARDIOVASCULAR: Regular rate and rhythm RESPIRATORY: Breath sounds equal bilaterally. No accessory muscle use. GASTROINTESTINAL: Abdomen soft, non-tender, nondistended. EXTREMITIES: No cyanosis NEUROLOGICAL: No obvious focal deficit. Awake, alert, and oriented to self, place and date. Assessment/Plan Problem List: (1) Pulmonary embolism ICD Codes: I26.99 - Other pulmonary embolism without acute cor pulmonale Plan: -- CTA showed possible pulmonary embolus -- VQ scan showed findings consistent with COPD and emphysema Assessment Patient admitted after a syncopal episode and CTA showed possible pulmonary embolism Plan 1. continue Eliquis + Plavix 2. monitor CBC 3. follow up with cardiology upon discharge. Problem Qualifiers (1) Pulmonary embolism: Qualified Codes: I26.99 - Other pulmonary embolism without acute cor pulmonale Shira Soria Dec 23, 2017 13:44
[2017-12-23] MEDS ORDERED: ISOSORBIDE MONONITRATE 20 MG TAB PO SCH (18:00)
--- NOTE | 2017-12-23 19:08 | ECHRPT ---
Indication: PULMONARY EMBOLISM WITH HYPOTENSION CONCLUSIONS Normal left ventricular size. Wall thickness is normal. The left ventricular systolic function is hyperdynamic with an estimated ejection fraction in the ra nge of 65- 70%. Trace mitral valve regurgitation. BP: 133 / 80 HR: 110 Rhythm: Sinus MEASUREMENTS (Male / Female) Normal Values Technical Quality:Fair 2D ECHO LV Diastolic Diameter PLAX 4.9 cm 4.2 - 5.9 / 3.9 - 5.3 cm LV Systolic Diameter PLAX 3.4 cm IVS Diastolic Thickness 0.8 cm 0.6 - 1.0 / 0.6 - 0.9 cm LVPW Diastolic Thickness 0.8 cm 0.6 - 1.0 / 0.6 - 0.9 cm LV Relative Wall Thickness 0.3 RV Internal Dim ED PLAX 2.4 cm LVOT Diameter 1.8 cm Aortic Root Diameter 3.2 cm LA Systolic Diameter LX 3.6 cm 3.0 - 4.0 / 2.7 - 3.8 cm M-MODE AV Cusp Separation MM 2.1 cm DOPPLER AV Peak Velocity 134.0 cm/s AV Peak Gradient 7.2 mmHg AV Mean Gradient 4.0 mmHg AV Velocity Time Integral 24.6 cm LVOT Peak Velocity 60.2 cm/s LVOT Peak Gradient 1.4 mmHg LVOT Velocity Time Integral 10.6 cm AV Area Cont Eq vti 1.1 cm AV Area Cont Eq pk 1.1 cm Mitral E Point Velocity 72.6 cm/s Mitral A Point Velocity 71.1 cm/s Mitral E to A Ratio 1.0 LV E' Lateral Velocity 11.6 cm/s Mitral E to LV E' Lateral Ratio 6.3 LV E' Septal Velocity 7.5 cm/s Mitral E to LV E' Septal Ratio 9.7 PV Peak Velocity 88.0 cm/s PV Peak Gradient 3.1 mmHg FINDINGS LEFT VENTRICLE Normal left ventricular size. Wall thickness is normal. The left ventricular systolic function is hyperdynamic with an estimated ejection fraction in the ra nge of 65- 70%. RIGHT VENTRICLE Normal right ventricular size and systolic function. LEFT ATRIUM The left atrial size is normal. RIGHT ATRIUM The right atrial size is normal. ATRIAL SEPTUM Normal atrial septal thickness without atrial level shunting by limited color doppler interrogation. AORTA The aortic root and proximal ascending aorta are normal in size on limited imaging. MITRAL VALVE Trace mitral valve regurgitation. AORTIC VALVE Trileaflet aortic valve. No aortic valve stenosis or regurgitation. TRICUSPID VALVE Structurally normal tricuspid valve. No tricuspid valve stenosis or regurgitation. PULMONARY VALVE No pulmonary valve regurgitation or stenosis. VESSELS The inferior vena cava is normal in size. PERICARDIUM No pericardial effusion. Jennifer Escobar MD, FACC (Electronically Signed) Final Date:23 December 2017 19:07
[2017-12-24] MEDS ORDERED: LISINOPRIL 5 MG TAB PO SCH (09:00)
== END 2017-12-23 15:55 | disposition left against medical advice (07) | DRG 175 ==
LOC: NEPC 10:38 → NEDA 14:50 → N04B 15:50
PROVIDERS: ADMIT Hospitalist; ATTEND Hospitalist
DX: I26.99 Other pulmonary embolism without acute cor pulmonale (principal); G93.40 Encephalopathy, unspecified; J43.2 Centrilobular emphysema; I95.9 Hypotension, unspecified; I10 Essential (primary) hypertension; R55 Syncope and collapse; F17.210 Nicotine dependence, cigarettes, uncomplicated; I25.10 Atherosclerotic heart disease of native coronary artery without angina pectoris; K21.9 Gastro-esophageal reflux disease without esophagitis; E78.5 Hyperlipidemia, unspecified; K40.90 Unilateral inguinal hernia, without obstruction or gangrene, not specified as recurrent; D64.9 Anemia, unspecified; F32.9 Major depressive disorder, single episode, unspecified; F41.9 Anxiety disorder, unspecified; M19.90 Unspecified osteoarthritis, unspecified site; Z79.891 Long term (current) use of opiate analgesic; I25.2 Old myocardial infarction; Z79.82 Long term (current) use of aspirin; Z95.1 Presence of aortocoronary bypass graft; Z79.01 Long term (current) use of anticoagulants; Z95.5 Presence of coronary angioplasty implant and graft
CPT/HCPCS: 70450; 71045; 71275; 72125; 74176; 76937; 78582; 80048; 80053; 80307; 81001; 82550; 82552; 83735; 84484; 85014; 85018; 85025; 85027; 85610; 85730; 93005; 93306; 93970; 96361; 96374; 96375; A9540; A9567; J1644; J2270; J2405; J7030; J7040; Q9967

== ENCOUNTER 2018-01-03 14:50 | Emergency (ER) | payer MEDICAID ==
[~2018-01-03] VITALS: Ht 167.6 cm; Wt 66.5 kg
[2018-01-03 15:00] VITALS: BP 153/78; PULSE 92; RESP 18; TEMP 99.1; O2SAT 99
== END 2018-01-03 15:12 | disposition left against medical advice (07) ==
LOC: NEDAMB 14:50
DX: R07.9 Chest pain, unspecified (principal); Z53.21 Procedure and treatment not carried out due to patient leaving prior to being seen by health care provider
CPT/HCPCS: 99281

== ENCOUNTER 2018-01-03 15:52 | Emergency (ER) | payer MEDICAID ==
[~2018-01-03] VITALS: Ht 160 cm; Wt 66.5 kg
[2018-01-03 15:53] VITALS: BP 159/85; PULSE 97; RESP 20; TEMP 99.1; O2SAT 98
--- NOTE | 2018-01-03 16:44 | RADRPT ---
EXAM DATE/TIME: 01/03/2018 16:30 [facility] COMPARISON: CHEST SINGLE AP, December 21, 2017, 11:31. INDICATIONS : Chest pain starting today MEDICAL HISTORY : Myocardial infarction. Chronic obstructive pulmonary disease. Hypertension SURGICAL HISTORY : CABG. Coronary artery stent. ENCOUNTER: Initial ACUITY: 1 day PAIN SCORE: 10/10 LOCATION: Bilateral chest FINDINGS: PA and lateral views of the chest demonstrate the lungs to be symmetrically aerated without evidence of mass, infiltrate or effusion. The cardiomediastinal contours are unremarkable. Sternotomy wires.. CONCLUSION: No acute disease Cr Meza MD on January 03, 2018 at 16:41 Board Certified Radiologist. This report was verified electronically.
[2018-01-03 17:25] LABS: AUTOMATED NEUTROPHIL # 11.7 TH/MM3 (1.8-7.7); BASOPHIL # 0.1 TH/MM3 (0-0.2); BASOPHIL % 0.4 % (0.0-2.0); EOSINOPHIL # 0.2 TH/MM3 (0-0.4); EOSINOPHIL % 1.4 % (0.0-4.0); LYMPH % 16.2 % (9.0-44.0); LYMPHOCYTE # 2.5 TH/MM3 (1.0-4.8); MEAN CELL VOLUME 88.3 FL (80.0-100.0); MEAN CORPUSCULAR HEMOGLOBIN 30.9 PG (27.0-34.0); MEAN CORPUSCULAR HGB CONC 34.9 % (32.0-36.0); MONOCYTE # 0.8 TH/MM3 (0-0.9); PLATELET COUNT 378 TH/MM3 (150-450); RED BLOOD COUNT 4.87 MIL/MM3 (4.50-5.90); WHITE BLOOD COUNT 15.2 TH/MM3 (4.0-11.0)
[2018-01-03 17:40] LABS: BICARBONATE 28.2 MEQ/L (21.0-32.0); BLOOD UREA NITROGEN 25 MG/DL (7-18); CALCIUM 9.1 MG/DL (8.5-10.1); CHLORIDE 105 MEQ/L (98-107); CREATININE 1.13 MG/DL (0.60-1.30); GLOMERULAR FILTRATION RATE 66 ML/MIN (>89); GLUCOSE,RANDOM 79 MG/DL (74-106); SODIUM (NA) 139 MEQ/L (136-145)
[2018-01-03 17:42] LABS: TROPONIN I LESS THAN 0.02 NG/ML (0.02-0.05)
--- NOTE | 2018-01-03 18:49 | PD ---
HPI Chief Complaint: Chest Pain Time Seen by Provider: 18:10 Travel History International Travel<30 days: No Contact w/Intl Traveler<30days: No Traveled to known affect area: No History of Present Illness HPI 62-year-old male presents to the emergency department for evaluation of left- sided "lung pain" and chest pressure. Patient was just recently discharged on December 23, 2017. He was originally diagnosed with pulmonary embolism, however , it appears it was artifact on the CT scan and VQ scan did not show PE. However, the patient was still discharged with anticoagulants. Patient has been here multiple times for chest pain, syncope. He states he has had multiple syncopal episodes over the past 2 weeks. However, he does have history of syncope. Patient was admitted on November 28, 2017 for chest pain/ syncope. He had workup and was instructed to follow-up palpation. Patient was also admitted 3 times in August for chest pain as well. Patient states that he has hit his head during the syncopal episodes. Patient has not followed up outpatient with any providers. 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 Moderate severity. Current pain is 7/10 left chest without radiation, aching. PFSH Past Medical History Hx Anticoagulant Therapy: Yes Arthritis: Yes Asthma: No Autoimmune Disease: No Blood Disorders: No Anxiety: Yes Depression: Yes Heart Rhythm Problems: Yes Cancer: No Cardiac Catheterization: Yes Cardiovascular Problems: Yes High Cholesterol: Yes Chemotherapy: No Chest Pain: Yes Congestive Heart Failure: No COPD: Yes Cerebrovascular Accident: No Coronary Artery Disease: Yes Diabetes: No Diminished Hearing: No Endocrine: No Gastrointestinal Disorders: Yes GERD: Yes Genitourinary: No Headaches: No Hiatal Hernia: Yes Heparin Induced Thrombocytopen: No Hypertension: Yes Immune Disorder: No Implanted Vascular Access Dvce: Yes Kidney Stones: Yes Musculoskeletal: No Neurologic: Yes Psychiatric: Yes Reproductive: No Respiratory: Yes Immunizations Current: Yes Migraines: Yes Myocardial Infarction: Yes Radiation Therapy: No Seizures: No Sickle Cell Disease: No Sleep Apnea: No Thyroid Disease: No Ulcer: No Past Surgical History Abdominal Surgery: No Body Medical Devices: STENTS Cardiac Surgery: Yes (CABG X2, STENTS) Coronary Artery Bypass Graft: Yes (DOUBLE BYPASS) Coronary Stent: Yes (X 7) Ear Surgery: No Endocrine Surgery: No Eye Surgery: No Genitourinary Surgery: No Gynecologic Surgery: No Neurologic Surgery: No Oral Surgery: No Thoracic Surgery: Yes (HX of CABG x 2) Other Surgery: Yes (CABG, STENTING) Social History Alcohol Use: No Tobacco Use: Yes (5 CIG) Substance Use: Yes (MARIJUANA) Allergies-Medications (Allergen,Severity, Reaction): Coded Allergies: ketorolac (Verified Allergy, Severe, RASH, 11/28/17) penicillin G (Verified Allergy, Unknown, Anaphylaxis, 11/28/17) Reported Meds & Prescriptions Reported Meds & Active Scripts Active Lisinopril 10 Mg Tab 10 Mg PO DAILY Oxycodone (Oxycodone HCl) 10 Mg Tab 30 Mg PO Q6H PRN Xanax (Alprazolam) 1 Mg Tab 1 Mg PO BID Isosorbide Mononitrate ER (Isosorbide Mononitrate) 60 Mg Tab 60 Mg PO BID 30 Days Effient (Prasugrel) 10 Mg Tab 10 Mg PO DAILY Lipitor (Atorvastatin Calcium) 80 Mg Tab 80 Mg PO DAILY Aspirin 81 Mg Chew 81 Mg CHEW DAILY Ventolin Hfa 18 GM Inh (Albuterol Sulfate) 90 Mcg/Act Aer 2 Puff INH Q4-6H PRN Reported Furosemide 20 Mg Tab 20 Mg PO DAILY Gabapentin 600 Mg Tab 600 Mg PO BID Potassium Chloride ER (Potassium Chloride) 20 Meq Tab 20 Meq PO DAILY Review of Systems Except as stated in HPI: all other systems reviewed are Neg Physical Exam Narrative GENERAL: Well-nourished, well-developed male patient, afebrile. SKIN: Focused skin assessment warm/dry. HEAD: Normocephalic. Atraumatic. EYES: No scleral icterus. No injection or drainage. NECK: Supple, trachea midline. No JVD or lymphadenopathy. CARDIOVASCULAR: Regular rate and rhythm without murmurs, gallops, or rubs. RESPIRATORY: Breath sounds equal bilaterally. No accessory muscle use. Lungs sounds are clear to auscultation GASTROINTESTINAL: Abdomen soft, non-tender, nondistended. MUSCULOSKELETAL: No cyanosis, or edema. Bilateral upper and lower extremity strength 5/5. All extremities are neurovascularly intact. BACK: Nontender without obvious deformity. No CVA tenderness. NEUROLOGICAL: Awake and alert. Cranial nerves II through XII intact. Motor and sensory grossly within normal limits. Five out of 5 muscle strength in all muscle groups. Normal speech. Finger to nose is normal bilaterally. Heel-to- turner is normal bilaterally. Data Data Last Documented VS Vital Signs Date Time Temp Pulse Resp B/P (MAP) Pulse Ox O2 Delivery O2 Flow Rate FiO2 01/03/18 15:53 99.1 97 20 159/85 (109) 98 Room Air Orders Orders Electrocardiogram (01/03/18 16:19) Complete Blood Count With Diff (01/03/18 16:19) Basic Metabolic Panel (Bmp) (01/03/18 16:19) Ckmb (Isoenzyme) Profile (01/03/18 16:19) Troponin I (01/03/18 16:19) Iv Access Insert/Monitor (01/03/18 16:19) Ecg Monitoring (01/03/18 16:19) Oxygen Administration (01/03/18 16:19) Oximetry (01/03/18 16:19) Chest, Pa & Lat (01/03/18 16:19) Labs Laboratory Tests Test 01/03/18 17:00 White Blood Count 15.2 TH/MM3 Red Blood Count 4.87 MIL/MM3 Hemoglobin 15.0 GM/DL Hematocrit 43.0 % Mean Corpuscular Volume 88.3 FL Mean Corpuscular Hemoglobin 30.9 PG Mean Corpuscular Hemoglobin Concent 34.9 % Red Cell Distribution Width 14.0 % Platelet Count 378 TH/MM3 Mean Platelet Volume 8.0 FL Neutrophils (%) (Auto) 77.0 % Lymphocytes (%) (Auto) 16.2 % Monocytes (%) (Auto) 5.0 % Eosinophils (%) (Auto) 1.4 % Basophils (%) (Auto) 0.4 % Neutrophils # (Auto) 11.7 TH/MM3 Lymphocytes # (Auto) 2.5 TH/MM3 Monocytes # (Auto) 0.8 TH/MM3 Eosinophils # (Auto) 0.2 TH/MM3 Basophils # (Auto) 0.1 TH/MM3 CBC Comment DIFF FINAL Differential Comment Blood Urea Nitrogen 25 MG/DL Creatinine 1.13 MG/DL Random Glucose 79 MG/DL Calcium Level 9.1 MG/DL Sodium Level 139 MEQ/L Potassium Level 3.7 MEQ/L Chloride Level 105 MEQ/L Carbon Dioxide Level 28.2 MEQ/L Anion Gap 6 MEQ/L Estimat Glomerular Filtration Rate 66 ML/MIN Total Creatine Kinase 99 U/L Troponin I LESS THAN 0.02 NG/ML MDM Medical Decision Making Medical Screen Exam Complete: Yes Emergency Medical Condition: Yes Medical Record Reviewed: Yes Differential Diagnosis ACS versus chronic chest pain versus COPD exacerbation versus pneumonia Narrative Course 62 year old male presents to the emergency department for evaluation of syncope , chest pain. Patient has been seen on multiple occasions for the same. EKG shows sinus rhythm, heart, no acute ST changes, stable from previous EKG. CBC shows leukocytosis of 15.2. However, patient recently finished a steroid pack. BMP shows no acute abnormality. CK is 99. Troponin is less than 0.02. Chest x-ray shows no acute disease. CT of the brain is ordered and pending. Before CT of the brain could be completed, the patient left AGAINST MEDICAL ADVICE. He stated he Bus and Did Not Want Any Further Workup Done. AMA: The risks of leaving against medical advice without further evaluation treatment were discussed with the patient. These risks include cardiac dysfunction, cardiac dysrhythmia, possible heart attack, possible stroke or . The patient indicated understanding of these risks and appeared to have the capacity to make this decision. Diagnosis Primary Impression: Left against medical advice Disposition: 07 AGAINST MEDICAL ADVICE Rachel Seay Jan 03, 2018 18:49
--- NOTE | 2018-01-03 23:06 | EKG ---
Date Performed: 01/03/2018 Time Performed: 17:11:53 PTAGE: 62 years EKG: Sinus rhythm NONSPECIFIC T-WAVE ABNORMALITY BORDERLINE ECG PREVIOUS TRACING : 12/22/2017 00.24 No significant change from previous tracing noted. DOCTOR: Carlos Pool Interpretating Date/Time 01/03/2018 23:05:25
== END 2018-01-03 19:05 | disposition left against medical advice (07) ==
LOC: NEPC 15:52
DX: R55 Syncope and collapse (principal); R07.9 Chest pain, unspecified; D72.829 Elevated white blood cell count, unspecified; R94.31 Abnormal electrocardiogram [ECG] [EKG]; M19.90 Unspecified osteoarthritis, unspecified site; J44.9 Chronic obstructive pulmonary disease, unspecified; I25.10 Atherosclerotic heart disease of native coronary artery without angina pectoris; I10 Essential (primary) hypertension; F17.210 Nicotine dependence, cigarettes, uncomplicated
CPT/HCPCS: 71046; 80048; 82550; 84484; 85025; 93005

== ENCOUNTER 2018-01-16 08:46 | Observation (INO) | payer MEDICAID ==
[~2018-01-16] VITALS: Ht 170.2 cm; Wt 62.0 kg
[2018-01-16 08:50] VITALS: BP 155/78; PULSE 85; RESP 20; TEMP 98.7; O2SAT 98
[2018-01-16] MEDS ORDERED: oxyCODONE/ACETAMINOPHEN 5 MG/325 MG TAB PO ONE (09:15)
[2018-01-16] MEDS ORDERED: SODIUM CHLORIDE 0.9% FLUSH 10 ML FLUSH IVF PRN (09:15)
--- NOTE | 2018-01-16 09:38 | RADRPT ---
EXAM DATE/TIME: 01/16/2018 09:18 [facility] COMPARISON: CHEST SINGLE AP, December 21, 2017, 11:31. INDICATIONS : Chest pain and shortness of breath. MEDICAL HISTORY : Chronic obstructive pulmonary disease. Congestive heart failure. SURGICAL HISTORY : CABG. ENCOUNTER: Initial ACUITY: 1 day PAIN SCORE: 10/10 LOCATION: Bilateral chest FINDINGS: A single view of the chest demonstrates the lungs to be symmetrically aerated without evidence of mas s, infiltrate or effusion. The cardiomediastinal contours are unremarkable. Evidence of previous car diothoracic surgery. Osseous structures are intact. No significant changes. CONCLUSION: No acute disease. No significant change has occurred. Carrington Monge MD on January 16, 2018 at 9:36 Board Certified Radiologist. This report was verified electronically.
[2018-01-16 09:42] LABS: AUTOMATED NEUTROPHIL # 11.8 TH/MM3 (1.8-7.7); BASOPHIL # 0.1 TH/MM3 (0-0.2); BASOPHIL % 0.5 % (0.0-2.0); EOSINOPHIL # 0.1 TH/MM3 (0-0.4); HEMATOCRIT 45.4 % (39.0-51.0); HEMOGLOBIN 15.5 GM/DL (13.0-17.0); LYMPH % 13.3 % (9.0-44.0); LYMPHOCYTE # 1.9 TH/MM3 (1.0-4.8); MEAN CELL VOLUME 87.4 FL (80.0-100.0); MEAN CORPUSCULAR HEMOGLOBIN 29.7 PG (27.0-34.0); MEAN PLATELET VOLUME 8.7 FL (7.0-11.0); MONO % 4.5 % (0.0-8.0); MONOCYTE # 0.7 TH/MM3 (0-0.9); NEUT % 80.7 % (16.0-70.0); PLATELET COUNT 304 TH/MM3 (150-450); RED CELL DISTRIBUTION WIDTH 13.7 % (11.6-17.2); WHITE BLOOD COUNT 14.6 TH/MM3 (4.0-11.0)
[2018-01-16 09:48] VITALS: O2SAT 98
[2018-01-16 10:17] LABS: ALBUMIN 4.2 GM/DL (3.4-5.0); ALKALINE PHOSPHATASE 90 U/L (45-117); ALT (GPT) 24 U/L (12-78); AST (GOT) 13 U/L (15-37); BICARBONATE 21.1 MEQ/L (21.0-32.0); BLOOD UREA NITROGEN 8 MG/DL (7-18); CALCIUM 9.3 MG/DL (8.5-10.1); CHLORIDE 108 MEQ/L (98-107); CREATININE 1.25 MG/DL (0.60-1.30); GLOMERULAR FILTRATION RATE 59 ML/MIN (>89); GLUCOSE,RANDOM 132 MG/DL (74-106); SODIUM (NA) 142 MEQ/L (136-145); TOTAL BILIRUBIN ADULT 0.4 MG/DL (0.2-1.0); TOTAL PROTEIN 7.9 GM/DL (6.4-8.2); TROPONIN I LESS THAN 0.02 NG/ML (0.02-0.05)
[2018-01-16 10:32] LABS: PROTHROMBIN TIME - PATIENT 10.6 SEC (9.8-11.6)
--- NOTE | 2018-01-16 10:43 | PD ---
HPI Chief Complaint: Chest Pain Time Seen by Provider: 08:54 Travel History International Travel<30 days: No Contact w/Intl Traveler<30days: No Traveled to known affect area: No History of Present Illness HPI Patient is a 62 year old male with history of cardiac stents, who comes in complaining of chest pain radiating down his left arm. He says it started this morning when he woke up. He says he has been out of all of his medications for 10 days. He did take some nitro at home and received nitro by EMS, which provided little improvement to his pain. He says "I just don't feel well." He denies nausea or vomiting. He does report some SOB. He has been here multiple times for similar complaints. Severity is mild to moderate. PFSH Past Medical History Hx Anticoagulant Therapy: Yes Arthritis: Yes Asthma: No Autoimmune Disease: No Blood Disorders: No Anxiety: Yes Depression: Yes Heart Rhythm Problems: Yes Cancer: No Cardiac Catheterization: Yes Cardiovascular Problems: Yes High Cholesterol: Yes Chemotherapy: No Chest Pain: Yes Congestive Heart Failure: No COPD: Yes Cerebrovascular Accident: No Coronary Artery Disease: Yes Diabetes: No Diminished Hearing: No Endocrine: No Gastrointestinal Disorders: Yes GERD: Yes Genitourinary: No Headaches: No Hiatal Hernia: Yes Heparin Induced Thrombocytopen: No Hypertension: Yes Immune Disorder: No Implanted Vascular Access Dvce: Yes Kidney Stones: Yes Musculoskeletal: No Neurologic: Yes Psychiatric: Yes Reproductive: No Respiratory: Yes Immunizations Current: Yes Migraines: Yes Myocardial Infarction: Yes Radiation Therapy: No Seizures: No Sickle Cell Disease: No Sleep Apnea: No Thyroid Disease: No Ulcer: No Tetanus Vaccination: < 5 Years Influenza Vaccination: Yes Past Surgical History Abdominal Surgery: No Body Medical Devices: STENTS Cardiac Surgery: Yes (CABG X2, STENTS) Coronary Artery Bypass Graft: Yes (DOUBLE BYPASS) Coronary Stent: Yes (X 7) Ear Surgery: No Endocrine Surgery: No Eye Surgery: No Genitourinary Surgery: No Gynecologic Surgery: No Neurologic Surgery: No Oral Surgery: No Thoracic Surgery: Yes (HX of CABG x 2) Other Surgery: Yes (CABG, STENTING) Social History Alcohol Use: No Tobacco Use: Yes (5 CIG) Substance Use: Yes (MARIJUANA) Allergies-Medications (Allergen,Severity, Reaction): Coded Allergies: ketorolac (Verified Allergy, Severe, RASH, 11/28/17) penicillin G (Verified Allergy, Unknown, Anaphylaxis, 11/28/17) Reported Meds & Prescriptions Reported Meds & Active Scripts Active Lisinopril 10 Mg Tab 10 Mg PO DAILY Furosemide 20 Mg Tab 20 Mg PO DAILY Gabapentin 600 Mg Tab 600 Mg PO BID Potassium Chloride ER (Potassium Chloride) 20 Meq Tab 20 Meq PO DAILY Isosorbide Mononitrate ER (Isosorbide Mononitrate) 60 Mg Tab 60 Mg PO BID 30 Days Effient (Prasugrel) 10 Mg Tab 10 Mg PO DAILY Lipitor (Atorvastatin Calcium) 80 Mg Tab 80 Mg PO DAILY Aspirin 81 Mg Chew 81 Mg CHEW DAILY Ventolin Hfa 18 GM Inh (Albuterol Sulfate) 90 Mcg/Act Aer 2 Puff INH Q4-6H PRN Oxycodone (Oxycodone HCl) 10 Mg Tab 30 Mg PO Q6H PRN Xanax (Alprazolam) 1 Mg Tab 1 Mg PO BID Review of Systems Except as stated in HPI: all other systems reviewed are Neg General / Constitutional: No: Fever, Chills HENT: No: Headaches, Lightheadedness Cardiovascular: Positive: Chest Pain or Discomfort Respiratory: No: Shortness of Breath Gastrointestinal: No: Vomiting Musculoskeletal: No: Myalgias, Edema Skin: No Rash, No Change in Pigmentation Neurologic: No: Weakness, Dizziness Physical Exam Narrative GENERAL: Awake and alert, in no acute distress. SKIN: Focused skin assessment warm/dry. No wounds or signs of infection. HEAD: Atraumatic. Normocephalic. EYES: Pupils equal and round. No scleral icterus. EOMI. ENT: Mucous membranes pink and moist. NECK: Trachea midline. No JVD. CARDIOVASCULAR: Regular rate and rhythm. No murmur appreciated. RESPIRATORY: No accessory muscle use. Clear to auscultation. Breath sounds equal bilaterally. GASTROINTESTINAL: Abdomen soft, non-tender, nondistended. MUSCULOSKELETAL: No obvious deformities. No clubbing. No cyanosis. No edema. NEUROLOGICAL: Awake and alert. No obvious cranial nerve deficits. Motor grossly within normal limits. Normal speech. PSYCHIATRIC: Appropriate mood and affect; insight and judgment normal. Data Data Last Documented VS Vital Signs Date Time Temp Pulse Resp B/P (MAP) Pulse Ox O2 Delivery O2 Flow Rate FiO2 01/16/18 09:48 98 01/16/18 08:55 20 Room Air 01/16/18 08:50 98.7 85 155/78 (103) Orders Orders Ckmb (Isoenzyme) Profile (01/16/18 09:08) Complete Blood Count With Diff (01/16/18 09:08) Comprehensive Metabolic Panel (01/16/18 09:08) Prothrombin Time / Inr (Pt) (01/16/18 09:08) Act Partial Throm Time (Ptt) (01/16/18 09:08) Troponin I (01/16/18 09:08) Chest, Single Ap (01/16/18 09:08) Ecg Monitoring (01/16/18 09:08) Bilateral Bp Monitoring (01/16/18 09:08) Iv Access Insert/Monitor (01/16/18 09:08) Oximetry (01/16/18 09:08) Oxygen Administration (01/16/18 09:08) Sodium Chloride 0.9% Flush (Ns Flush) (01/16/18 09:15) Oxycodone-Acetamin 5-325 Mg (Percocet (01/16/18 09:15) Potassium Chloride (Kcl) (01/16/18 10:45) Admit Order (Ed Use Only) (01/16/18 ) Labs Laboratory Tests Test 01/16/18 09:00 01/16/18 10:00 White Blood Count 14.6 TH/MM3 Red Blood Count 5.20 MIL/MM3 Hemoglobin 15.5 GM/DL Hematocrit 45.4 % Mean Corpuscular Volume 87.4 FL Mean Corpuscular Hemoglobin 29.7 PG Mean Corpuscular Hemoglobin Concent 34.0 % Red Cell Distribution Width 13.7 % Platelet Count 304 TH/MM3 Mean Platelet Volume 8.7 FL Neutrophils (%) (Auto) 80.7 % Lymphocytes (%) (Auto) 13.3 % Monocytes (%) (Auto) 4.5 % Eosinophils (%) (Auto) 1.0 % Basophils (%) (Auto) 0.5 % Neutrophils # (Auto) 11.8 TH/MM3 Lymphocytes # (Auto) 1.9 TH/MM3 Monocytes # (Auto) 0.7 TH/MM3 Eosinophils # (Auto) 0.1 TH/MM3 Basophils # (Auto) 0.1 TH/MM3 CBC Comment DIFF FINAL Differential Comment Blood Urea Nitrogen 8 MG/DL Creatinine 1.25 MG/DL Random Glucose 132 MG/DL Total Protein 7.9 GM/DL Albumin 4.2 GM/DL Calcium Level 9.3 MG/DL Alkaline Phosphatase 90 U/L Aspartate Amino Transf (AST/SGOT) 13 U/L Alanine Aminotransferase (ALT/SGPT) 24 U/L Total Bilirubin 0.4 MG/DL Sodium Level 142 MEQ/L Potassium Level 2.8 MEQ/L Chloride Level 108 MEQ/L Carbon Dioxide Level 21.1 MEQ/L Anion Gap 13 MEQ/L Estimat Glomerular Filtration Rate 59 ML/MIN Total Creatine Kinase 86 U/L Troponin I LESS THAN 0.02 NG/ML Prothrombin Time 10.6 SEC Prothromb Time International Ratio 1.0 RATIO Activated Partial Thromboplast Time 25.5 SEC MDM Medical Decision Making Medical Screen Exam Complete: Yes Emergency Medical Condition: Yes Medical Record Reviewed: Yes Interpretation(s) ECG shows normal sinus rhythm at 78, no ST elevation or depression, normal intervals Differential Diagnosis ACS vs NSTEMI vs STEMI Narrative Course Patient is a 62-year-old male who comes in complaining of chest pain and not feeling well. Exam shows no acute abnormalities. Patient did receive aspirin by EMS. IV established, labs sent. Patient connected to the cardiac monitor technician. Labs show a negative troponin. Potassium is 2.8, this was replaced. Patient given pain medicine. He will be placed in the chest pain center for further management. Diagnosis Primary Impression: Atypical chest pain Admitting Information Admitting Physician Requests: Observation Scripts Lisinopril (Lisinopril) 10 Mg Tab 10 MG PO DAILY for Blood Pressure Management, #30 TAB 0 Refills Prov: Jennifer Purcell 01/16/18 Furosemide (Furosemide) 20 Mg Tab 20 MG PO DAILY for Prevent Heart Failure, #30 TAB 0 Refills Prov: Jennifer Purcell 01/16/18 Gabapentin (Gabapentin) 600 Mg Tab 600 MG PO BID for Pain, #60 TAB 0 Refills Prov: Jennifer Purcell 01/16/18 Potassium Chloride ER (Potassium Chloride ER) 20 Meq Tab 20 MEQ PO DAILY for Electrolyte Replacement, #30 TAB 0 Refills Prov: Jennifer Purcell 01/16/18 Isosorbide Mononitrate ER (Isosorbide Mononitrate ER) 60 Mg Tab 60 MG PO BID for cad for 30 Days, TAB Prov: Jennifer Purcell 01/16/18 Prasugrel (Effient) 10 Mg Tab 10 MG PO DAILY for cad, #30 TAB 0 Refills Prov: Jennifer Purcell 01/16/18 Atorvastatin (Lipitor) 80 Mg Tab 80 MG PO DAILY for cholesterol, #30 TAB 0 Refills Prov: Jennifer Purcell 01/16/18 Aspirin (Aspirin) 81 Mg Chew 81 MG CHEW DAILY for Blood Clot Prevention, #30 TAB 0 Refills Prov: Jennifer Purcell 01/16/18 Albuterol 18 GM Inh (Ventolin Hfa 18 GM Inh) 90 Mcg/Act Aer 2 PUFF INH Q4-6H Y for SOB/WHEEZING, #1 INHALER 0 Refills Prov: Jennifer Purcell 01/16/18 Crystal Rao MD Jan 16, 2018 10:43
[2018-01-16] MEDS ORDERED: POTASSIUM CHLORIDE 10 MEQ CONTROLLED RELEASE TAB PO ONE (10:45)
[2018-01-16] MEDS ORDERED: ONDANSETRON HCL 4 MG/2 ML VIAL IV PUSH PRN (11:15)
[2018-01-16] MEDS ORDERED: NITROGLYCERIN 0.4 MG SL 25 TABS/BTL SL PRN (11:15)
[2018-01-16] MEDS ORDERED: ACETAMINOPHEN 500 MG CPLT PO PRN (11:15)
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
[2018-01-16 13:56] LABS: TROPONIN I LESS THAN 0.02 NG/ML (0.02-0.05)
[2018-01-16] MEDS ORDERED: POTA-163 PO (14:39)
[2018-01-16] MEDS ORDERED: ASPI-516 CHEW (14:39)
[2018-01-16] MEDS ORDERED: LISI10TA3 PO (14:39)
[2018-01-16] MEDS ORDERED: LIPI80TA PO (14:39)
[2018-01-16] MEDS ORDERED: FURO20TA PO (14:39)
[2018-01-16] MEDS ORDERED: PRAS10TA PO (14:39)
[2018-01-16] MEDS ORDERED: ISOS60TA PO (14:39)
[2018-01-16] MEDS ORDERED: VENTAER INH (14:39)
[2018-01-16] MEDS ORDERED: GABA600T PO (14:39)
--- NOTE | 2018-01-16 14:40 | HHI.DCPOC ---
Discharge Care Plan Diagnosis: (1) Hx of CABG (2) H/O heart artery stent (3) Atypical chest pain Goals to Promote Your Health * To prevent worsening of your condition and complications * To maintain your health at the optimal level Directions to Meet Your Goals Take your medications as prescribed Follow your dietary instruction Follow activity as directed Keep your appointments as scheduled Take your immunizations and boosters as scheduled If your symptoms worsen call your PCP, if no PCP go to Urgent Care Center or Emergency Room Smoking is Dangerous to Your Health. Avoid second hand smoke Call the 24-hour hour crisis hotline for domestic abuse at Jennifer Purcell Jan 16, 2018 14:40
[2018-01-16] MEDS ORDERED: SODIUM CHLORIDE 0.9% FLUSH 10 ML FLUSH IV FLUSH SCH (21:00)
--- NOTE | 2018-01-17 08:44 | EKG ---
Date Performed: 01/16/2018 Time Performed: 13:32:08 PTAGE: 62 years EKG: Sinus rhythm NORMAL ECG PREVIOUS TRACING : 01/16/2018 08.53 Since previous tracing, no significant change noted DOCTOR: Jeremias Rosado Interpretating Date/Time 01/17/2018 08:42:54
--- NOTE | 2018-01-17 08:45 | EKG ---
Date Performed: 01/16/2018 Time Performed: 08:53:15 PTAGE: 62 years EKG: Sinus rhythm POSSIBLE LEFT ATRIAL ENLARGEMENT BORDERLINE ECG INTERPRETATION BASED ON A DEFAULT AGE OF 40 YEARS PREVIOUS TRACING : 01/03/2018 17.11 Since previous tracing, no significant change noted DOCTOR: Jeremias Rosado Interpretating Date/Time 01/17/2018 08:43:52
== END 2018-01-16 17:40 | disposition home or self-care (01) ==
LOC: NEPE 08:46 → NEDA 10:41 → NEPFCDU 13:47
PROVIDERS: ADMIT Internal Medicine Cardiovascular Disease; ATTEND Internal Medicine Cardiovascular Disease
DX: R07.89 Other chest pain (principal); R06.02 Shortness of breath; R11.2 Nausea with vomiting, unspecified; R61 Generalized hyperhidrosis; M79.602 Pain in left arm; I25.10 Atherosclerotic heart disease of native coronary artery without angina pectoris; I11.0 Hypertensive heart disease with heart failure; I50.9 Heart failure, unspecified; I25.2 Old myocardial infarction; E78.00 Pure hypercholesterolemia, unspecified; J44.9 Chronic obstructive pulmonary disease, unspecified; K21.9 Gastro-esophageal reflux disease without esophagitis; F41.9 Anxiety disorder, unspecified; F32.9 Major depressive disorder, single episode, unspecified; M19.90 Unspecified osteoarthritis, unspecified site; F12.90 Cannabis use, unspecified, uncomplicated; F17.210 Nicotine dependence, cigarettes, uncomplicated; Z95.1 Presence of aortocoronary bypass graft; Z95.5 Presence of coronary angioplasty implant and graft; Z79.899 Other long term (current) drug therapy; Z79.82 Long term (current) use of aspirin
CPT/HCPCS: 71045; 80053; 82550; 84484; 85025; 85610; 85730; 93005; 99285; G0378

== ENCOUNTER 2018-01-25 22:18 | Emergency (ER) | payer MEDICAID ==
[~2018-01-25] VITALS: Ht 170.2 cm; Wt 58.0 kg
[2018-01-25 22:25] VITALS: BP 140/86; PULSE 99; RESP 18; TEMP 98.6
--- NOTE | 2018-01-25 23:07 | PD ---
HPI Chief Complaint: Abdominal Pain Time Seen by Provider: 22:52 Travel History International Travel<30 days: No Contact w/Intl Traveler<30days: No Traveled to known affect area: No History of Present Illness HPI Patient is a 62-year-old male presenting to emergency Department via EMS for evaluation of right groin pain after he lifted his guitar this evening. Patient states that he has a history of inguinal hernias, after he lifted his guitar this exacerbated his pain. He states that he was unable to walk and had to be carried out to the truck to meet the ambulance. He denies any nausea, vomiting, change in bowel habits, dysuria area and he states his pain is a 6 out of 10 and states it's sore and aching. He reported that when it first started and felt burning in nature. Symptom onset was gradual, symptom severity is mild, there are no alleviating factors. Pain is exacerbated to touch. Patient denies any pain in his testicles. PFSH Past Medical History Hx Anticoagulant Therapy: Yes Arthritis: Yes Anxiety: Yes Depression: Yes Cardiac Catheterization: Yes High Cholesterol: Yes Chest Pain: Yes COPD: Yes Coronary Artery Disease: Yes Gastrointestinal Disorders: Yes GERD: Yes Hiatal Hernia: Yes Hypertension: Yes Kidney Stones: Yes Immunizations Current: Yes Migraines: Yes Myocardial Infarction: Yes Past Surgical History Abdominal Surgery: No Body Medical Devices: STENTS Cardiac Surgery: Yes (CABG X2, STENTS) Coronary Artery Bypass Graft: Yes (DOUBLE BYPASS) Coronary Stent: Yes (X 7) Ear Surgery: No Endocrine Surgery: No Eye Surgery: No Genitourinary Surgery: No Gynecologic Surgery: No Neurologic Surgery: No Oral Surgery: No Thoracic Surgery: Yes (HX of CABG x 2) Other Surgery: Yes (CABG, STENTING) Social History Alcohol Use: No Tobacco Use: No Substance Use: No Allergies-Medications (Allergen,Severity, Reaction): Coded Allergies: ketorolac (Verified Allergy, Severe, RASH, 01/25/18) penicillin G (Verified Allergy, Unknown, Anaphylaxis, 01/25/18) Reported Meds & Prescriptions Reported Meds & Active Scripts Active No Active Prescriptions or Reported Medications Review of Systems Except as stated in HPI: all other systems reviewed are Neg Musculoskeletal: Positive: Myalgias, Pain Physical Exam Narrative GENERAL: Well-developed, well-nourished, well-appearing male. Presenting in no acute distress. SKIN: Warm and dry. No redness, warmth noted to groin. HEAD: Atraumatic. Normocephalic. EYES: Pupils equal and round. No scleral icterus. No injection or drainage. ENT: No nasal bleeding or discharge. Mucous membranes pink and moist. NECK: Trachea midline. No JVD. CARDIOVASCULAR: Regular rate and rhythm. RESPIRATORY: No accessory muscle use. Clear to auscultation. Breath sounds equal bilaterally. GASTROINTESTINAL: Abdomen soft, non-tender, nondistended. Hepatic and splenic margins not palpable. Bilateral inguinal hernia, easily reducible. GENITOURINARY: Circumcised. Testes descended bilaterally without evidence of rotation. No lesions or erythema. No urethral discharge. MUSCULOSKELETAL: Extremities without clubbing, cyanosis, or edema. No obvious deformities. NEUROLOGICAL: Awake and alert. No obvious cranial nerve deficits. Motor grossly within normal limits. Five out of 5 muscle strength in the arms and legs. Normal speech. PSYCHIATRIC: Appropriate mood and affect; insight and judgment normal. Data Data Last Documented VS Vital Signs Date Time Temp Pulse Resp B/P (MAP) Pulse Ox O2 Delivery O2 Flow Rate FiO2 01/25/18 22:25 98.6 99 18 140/86 (104) Orders Orders Orphenadrine Inj (Norflex Inj) (01/25/18 23:15) Acetaminophen (Tylenol) (01/25/18 23:15) MDM Medical Decision Making Medical Screen Exam Complete: Yes Emergency Medical Condition: Yes Medical Record Reviewed: Yes Interpretation(s) Vital Signs Date Time Temp Pulse Resp B/P (MAP) Pulse Ox O2 Delivery O2 Flow Rate FiO2 01/25/18 22:25 98.6 99 18 140/86 (104) Differential Diagnosis Incarcerated hernia versus muscle strain versus reducible hernia versus other Narrative Course Patient is well-appearing 62-year-old male presenting for evaluation of groin pain secondary to his hernias. Patient's hernias are easily reducible, his vital signs are stable. He was encouraged to follow-up with his primary doctor for referral to a general surgeon if hernias continue to cause pain. He was encouraged to obtain a supportive garment and avoid lifting heavy objects. He was encouraged to return to emergency department for any new or worsening symptoms. Patient verbalized understanding of instructions. Patient stable for discharge. Medical records reviewed. Patient had a CT scan of the abdomen and pelvis on December 21 that showed bilateral inguinal hernias containing loop of small bowel without obstruction. Again patient's hernia is easily reducible. Diagnosis Primary Impression: Inguinal hernia Qualified Codes: K40.20 - Bilateral inguinal hernia, without obstruction or gangrene, not specified as recurrent Referrals: Primary Care Physician Patient Instructions: General Instructions, Inguinal Hernia (DC) Additional Instructions: Follow-up with her primary doctor Follow-up with a general surgeon Obtain a compression garment to help with pain Return to emergency department for any new or worsening symptoms Take [id number] Tylenol as needed and as directed for pain Med/Other Pt SpecificInfo: No Change to Meds Scripts No Active Prescriptions or Reported Meds Disposition: 01 DISCHARGE HOME Condition: Stable Reba Subramanian Jan 25, 2018 23:07
[2018-01-25] MEDS: ACETAMINOPHEN 325 MG TAB PO ONE (23:36)
[2018-01-25] MEDS: ORPHENADRINE INJ 60 MG/2 ML AMP IM ONE (23:37)
== END 2018-01-25 23:44 | disposition home or self-care (01) ==
LOC: NEPC 22:18
DX: K40.20 Bilateral inguinal hernia, without obstruction or gangrene, not specified as recurrent (principal); M19.90 Unspecified osteoarthritis, unspecified site; F41.9 Anxiety disorder, unspecified; F32.9 Major depressive disorder, single episode, unspecified; E78.00 Pure hypercholesterolemia, unspecified; J44.9 Chronic obstructive pulmonary disease, unspecified; I25.10 Atherosclerotic heart disease of native coronary artery without angina pectoris; K21.9 Gastro-esophageal reflux disease without esophagitis; I10 Essential (primary) hypertension
CPT/HCPCS: 96372; 99283; J2360

== ENCOUNTER 2018-03-26 19:31 | Observation (INO) | payer MEDICAID ==
[~2018-03-26] VITALS: Ht 170.2 cm; Wt 70.0 kg
[2018-03-26 19:54] VITALS: BP 151/84; PULSE 87; RESP 20; TEMP 98.6; O2SAT 98
[2018-03-26] MEDS ORDERED: ASPI81CH7 CHEW (20:08)
[2018-03-26] MEDS ORDERED: ISOS20TA PO (20:08)
[2018-03-26] MEDS ORDERED: PRAS10TA PO (20:08)
[2018-03-26] MEDS ORDERED: XANA1TAB2 PO (20:08)
[2018-03-26] MEDS ORDERED: OXYC30TA PO (20:08)
[2018-03-26] MEDS ORDERED: GABA600T PO (20:08)
--- NOTE | 2018-03-26 20:15 | PD ---
HPI Chief Complaint: Chest Pain Time Seen by Provider: 20:01 Travel History International Travel<30 days: No Contact w/Intl Traveler<30days: No Traveled to known affect area: No History of Present Illness HPI 62yo M with PMH of CAD s/p CABG and multiple stents, chronic pain on oxycodone and follows with pain management here with c/o chest pain since last night. Said last night was more midsternal and burning. Today, it is more left sided and sharp, radiating to left arm. Said he was walking when pain started. Pain is intermittent and relieve some from sublingual nitro and rest. Took aspirin as well. Denies any fever, cough, vomiting, abdominal pain, focal weakness or numbness. 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 Does not remember last cardiac cath, thinks it is about a year ago. Also about a year ago was the last time he thinks he saw his protection engineer. He is a poor historian. +Cig smoker. PFSH Past Medical History Hx Anticoagulant Therapy: Yes Arthritis: Yes Anxiety: Yes Depression: Yes Heart Rhythm Problems: Yes Cardiac Catheterization: Yes Cardiovascular Problems: Yes High Cholesterol: Yes Chest Pain: Yes COPD: Yes Coronary Artery Disease: Yes Diminished Hearing: No Gastrointestinal Disorders: Yes GERD: Yes Hiatal Hernia: Yes Hypertension: Yes Kidney Stones: Yes Immunizations Current: Yes Migraines: Yes Myocardial Infarction: Yes Tetanus Vaccination: Unknown Past Surgical History Abdominal Surgery: No Body Medical Devices: STENTS Cardiac Surgery: Yes (7 stents, 2 bypass) Coronary Artery Bypass Graft: Yes Coronary Stent: Yes (X 7) Ear Surgery: No Endocrine Surgery: No Eye Surgery: No Genitourinary Surgery: No Gynecologic Surgery: No Neurologic Surgery: No Oral Surgery: No Thoracic Surgery: Yes (HX of CABG x 2) Other Surgery: Yes (CABG, STENTING) Social History Alcohol Use: No Tobacco Use: Yes (5 per day) Substance Use: No Allergies-Medications (Allergen,Severity, Reaction): Coded Allergies: ketorolac (Verified Allergy, Severe, RASH, 03/26/18) penicillin G (Verified Allergy, Unknown, Anaphylaxis, 03/26/18) Reported Meds & Prescriptions Reported Meds & Active Scripts Active Reported Effient (Prasugrel) 10 Mg Tab 10 Mg PO DAILY Isosorbide Mononitrate 20 Mg Tab 40 Mg PO DAILY Take 2 doses 7 hours apart. Aspirin Children's (Aspirin) 81 Mg Chew 81 Mg CHEW DAILY Gabapentin 600 Mg Tab 600 Mg PO TID Xanax (Alprazolam) 1 Mg Tab 1 Mg PO Q8H PRN Oxycodone (Oxycodone HCl) 30 Mg Tab 30 Mg PO Q6HR Review of Systems Except as stated in HPI: all other systems reviewed are Neg Physical Exam Narrative GENERAL: 62yo M in mild distress. SKIN: Focused skin assessment warm/dry. HEAD: Atraumatic. Normocephalic. EYES: Pupils equal and round. No scleral icterus. No injection or drainage. ENT: No nasal bleeding or discharge. Mucous membranes pink and moist. NECK: Trachea midline. No JVD. CARDIOVASCULAR: Regular rate and rhythm. No murmur appreciated. RESPIRATORY: No accessory muscle use. Clear to auscultation. Breath sounds equal bilaterally. GASTROINTESTINAL: Abdomen soft, non-tender, nondistended. MUSCULOSKELETAL: No obvious deformities. No clubbing. No cyanosis. No edema. NEUROLOGICAL: Awake and alert. No obvious cranial nerve deficits. Motor grossly within normal limits in all extremities. Sensation intact. Normal speech. PSYCHIATRIC: Appropriate mood and affect; insight and judgment normal. Data Data Last Documented VS Vital Signs Date Time Temp Pulse Resp B/P (MAP) Pulse Ox O2 Delivery O2 Flow Rate FiO2 03/26/18 21:19 76 16 164/89 (114) 99 Nasal Cannula 2.00 03/26/18 19:54 98.6 Orders Orders Basic Metabolic Panel (Bmp) (03/26/18 20:08) Complete Blood Count With Diff (03/26/18 20:08) Prothrombin Time / Inr (Pt) (03/26/18 20:08) Act Partial Throm Time (Ptt) (03/26/18 20:08) Troponin I (03/26/18 20:08) Nitroglycerin Sl (Nitrostat Sl) (03/26/18 20:30) Chest, Single Ap (03/26/18 ) Electrocardiogram (03/26/18 19:39) Pantoprazole (Protonix) (03/26/18 22:00) Admit Order (Ed Use Only) (03/26/18 21:58) Labs Laboratory Tests Test 03/26/18 20:00 White Blood Count 11.5 TH/MM3 Red Blood Count 4.72 MIL/MM3 Hemoglobin 13.6 GM/DL Hematocrit 41.6 % Mean Corpuscular Volume 88.0 FL Mean Corpuscular Hemoglobin 28.7 PG Mean Corpuscular Hemoglobin Concent 32.7 % Red Cell Distribution Width 14.0 % Platelet Count 259 TH/MM3 Mean Platelet Volume 8.2 FL Neutrophils (%) (Auto) 69.2 % Lymphocytes (%) (Auto) 22.8 % Monocytes (%) (Auto) 6.1 % Eosinophils (%) (Auto) 1.3 % Basophils (%) (Auto) 0.6 % Neutrophils # (Auto) 7.9 TH/MM3 Lymphocytes # (Auto) 2.6 TH/MM3 Monocytes # (Auto) 0.7 TH/MM3 Eosinophils # (Auto) 0.2 TH/MM3 Basophils # (Auto) 0.1 TH/MM3 CBC Comment DIFF FINAL Differential Comment Prothrombin Time 10.1 SEC Prothromb Time International Ratio 1.0 RATIO Activated Partial Thromboplast Time 26.8 SEC Blood Urea Nitrogen 17 MG/DL Creatinine 1.12 MG/DL Random Glucose 93 MG/DL Calcium Level 8.5 MG/DL Sodium Level 142 MEQ/L Potassium Level 3.8 MEQ/L Chloride Level 108 MEQ/L Carbon Dioxide Level 26.2 MEQ/L Anion Gap 8 MEQ/L Estimat Glomerular Filtration Rate 67 ML/MIN Troponin I LESS THAN 0.02 NG/ML MDM Medical Decision Making Medical Screen Exam Complete: Yes Emergency Medical Condition: Yes Interpretation(s) EKG: NSR 94bpm. Normal axis. No ST segment elevation. Mild ST depression II, III, aVF. Differential Diagnosis ACS vs. GERD vs. musculoskeletal pain Narrative Course 62yo M with CAD s/p CABG and cardiac stent here with typical chest pain. Labs reviewed, WBC 11.5. H/H normal. BMP unremarkable. Troponin negative. CXR showed no acute disease. Pt was just here in January 2018 in chest pain center. However, pt has significant cardiac history and does not have good outpatient follow up. So will do serial EKG and cardiac enzymes in chest pain center. Diagnosis Primary Impression: Chest pain Qualified Codes: R07.9 - Chest pain, unspecified Admitting Information Admitting Physician Requests: Leyda Ivan DO March 26, 2018 20:15
[2018-03-26 20:31] LABS: AUTOMATED NEUTROPHIL # 7.9 TH/MM3 (1.8-7.7); BASOPHIL # 0.1 TH/MM3 (0-0.2); BASOPHIL % 0.6 % (0.0-2.0); EOSINOPHIL # 0.2 TH/MM3 (0-0.4); EOSINOPHIL % 1.3 % (0.0-4.0); HEMATOCRIT 41.6 % (39.0-51.0); HEMOGLOBIN 13.6 GM/DL (13.0-17.0); LYMPH % 22.8 % (9.0-44.0); LYMPHOCYTE # 2.6 TH/MM3 (1.0-4.8); MEAN CORPUSCULAR HEMOGLOBIN 28.7 PG (27.0-34.0); MEAN CORPUSCULAR HGB CONC 32.7 % (32.0-36.0); MEAN PLATELET VOLUME 8.2 FL (7.0-11.0); MONO % 6.1 % (0.0-8.0); MONOCYTE # 0.7 TH/MM3 (0-0.9); NEUT % 69.2 % (16.0-70.0); PLATELET COUNT 259 TH/MM3 (150-450); RED BLOOD COUNT 4.72 MIL/MM3 (4.50-5.90); WHITE BLOOD COUNT 11.5 TH/MM3 (4.0-11.0)
[2018-03-26] MEDS: NITROGLYCERIN 0.4 MG SL 25 TABS/BTL SL PRN ×3 (20:41→21:18)
[2018-03-26 20:44] VITALS: BP 148/79; PULSE 79; RESP 20; O2SAT 100
[2018-03-26 20:45] LABS: BICARBONATE 26.2 MEQ/L (21.0-32.0); BLOOD UREA NITROGEN 17 MG/DL (7-18); CALCIUM 8.5 MG/DL (8.5-10.1); CHLORIDE 108 MEQ/L (98-107); CREATININE 1.12 MG/DL (0.60-1.30); GLOMERULAR FILTRATION RATE 67 ML/MIN (>89); GLUCOSE,RANDOM 93 MG/DL (74-106); SODIUM (NA) 142 MEQ/L (136-145)
[2018-03-26 20:47] LABS: PROTHROMBIN TIME - PATIENT 10.1 SEC (9.8-11.6)
[2018-03-26 20:48] LABS: TROPONIN I LESS THAN 0.02 NG/ML (0.02-0.05)
[2018-03-26 20:51] VITALS: BP 156/78; PULSE 79; RESP 20; O2SAT 97
[2018-03-26 21:19] VITALS: BP 164/89; PULSE 76; RESP 16; O2SAT 99
--- NOTE | 2018-03-26 21:50 | RADRPT ---
EXAM DATE/TIME: 03/26/2018 21:13 [facility] COMPARISON: CHEST SINGLE AP, January 16, 2018, 9:18. INDICATIONS : Patient complains of chest pain and shortness of breath. MEDICAL HISTORY : Chronic obstructive pulmonary disease. Congestive heart failure. SURGICAL HISTORY : CABG. ENCOUNTER: Initial ACUITY: 1 day PAIN SCORE: 7/10 LOCATION: chest FINDINGS: The patient is status post sternotomy. The heart size is normal. The lungs are clear. CONCLUSION: No acute disease. Cr Tay MD on March 26, 2018 at 21:46 Board Certified Radiologist. This report was verified electronically.
[2018-03-26] MEDS ORDERED: PANTOPRAZOLE SOD 40 MG DELAYED RELEASE TAB PO ONE (22:00)
[2018-03-26] MEDS ORDERED: SODIUM CHLORIDE 0.9% FLUSH 10 ML FLUSH IV FLUSH PRN (22:00)
[2018-03-26 23:27] LABS: TROPONIN I 0.02 NG/ML (0.02-0.05)
[2018-03-27 00:05] VITALS: BP 133/74; PULSE 76; RESP 17; TEMP 98.5; O2SAT 93
[2018-03-27 01:17] VITALS: PULSE 72
[2018-03-27 03:27] LABS: TROPONIN I LESS THAN 0.02 NG/ML (0.02-0.05)
[2018-03-27 03:28] VITALS: BP 147/77; PULSE 71; RESP 16; TEMP 98.5; O2SAT 97
[2018-03-27 04:01] VITALS: PULSE 74
--- NOTE | 2018-03-27 07:22 | EKG ---
Date Performed: 03/26/2018 Time Performed: 22:52:12 PTAGE: 62 years EKG: Sinus rhythm NORMAL ECG Since PREVIOUS TRACING , no significant change noted DOCTOR: Iza Perez Interpretating Date/Time 03/27/2018 07:20:39
[2018-03-27] MEDS ORDERED: RESP: ALBUTEROL 2.5 MG/IPRATROPIUM 0.5 MG NEB (PRN) INH (08:00)
[2018-03-27] MEDS ORDERED: RESP: ALBUTEROL 2.5 MG/IPRATROPIUM 0.5 MG NEB (SCH) INH ONE (08:00)
[2018-03-27 08:44] LABS: DIRECT BILIRUBIN ADULT 0.1 MG/DL (0.0-0.2); HDL CHOLESTEROL 54.3 MG/DL (40.0-60.0); INDIRECT BILIRUBIN 0.5 MG/DL (0.0-0.8); TOTAL BILIRUBIN ADULT 0.6 MG/DL (0.2-1.0); TOTAL PROTEIN 6.7 GM/DL (6.4-8.2)
[2018-03-27 08:55] LABS: ALBUMIN 3.6 GM/DL (3.4-5.0); CHOLESTEROL/ HDL RATIO 3.37 RATIO
[2018-03-27] MEDS ORDERED: SODIUM CHLORIDE 0.9% FLUSH 10 ML FLUSH IV FLUSH SCH (09:00)
[2018-03-27] MEDS ORDERED: REGADENOSON INJ 0.4 MG/5 ML SYR ONE (09:25)
--- NOTE | 2018-03-27 10:33 | HHI.HP ---
HPI Primary Care Physician No Primary Care Physician Chief Complaint Chest pain History of Present Illness This is a 62-year-old male with history of CAD history of CABG as well as stents most recently November 2016 the presents to the ED to be evaluated for chest discomfort. Patient states that he developed a burning sensation in his chest while he was walking last evening. There is also sharp pain. At times it radiated to his left arm. States last a couple hours. Is not currently following a employment law specialist. Was taking meds medications as prescribed but states he ran out of them 4 days ago. Symptoms do not feel similar to when eating stents or bypass. May felt a little short of breath. There is no nausea or diaphoresis. Currently denies chest discomfort. Upon reviewing records, patient had a nonischemic Lexiscan September 08, 2017. Last cardiac catheterization was performed November 13, 2016. Bare-metal stent to the ramus intermedius, distal left main and percutaneous transluminal angioplasty of a thrombosed proximal LAD stent. Also thrombectomy of left main and LAD.` Review of Systems General: Patient denies fevers, chills, and recent travel. HEENT: Patient denies headache, sore throat, difficulty swallowing. Cardiovascular: Has the chest discomfort as mentioned above. Denies sensation of heart beating rapidly or irregularly. No syncope. Denies diaphoresis. Respiratory: He was a little short of breath. Denies inspirational chest discomfort. Denies coughing wheezing or hemoptysis. GI: Patient denies nausea, vomiting, diarrhea, abdominal pain, bloody stools. Musculoskeletal: Patient denies joint pain or edema. Denies calf pain or edema. Neurovascular: Patient denies numbness, tingling, weakness in extremities. Denies headache. Endocrine: Denies polyuria and polydipsia. Hematologic: Denies easy bruising. Skin: Denies rash or itching. Past Family Social History Allergies: Coded Allergies: ketorolac (Verified Allergy, Severe, RASH, 03/26/18) penicillin G (Verified Allergy, Unknown, Anaphylaxis, 03/26/18) Past Medical History CAD with CABG as well as stents. Hypertension, hyperlipidemia, chronic pain, continued tobacco abuse. Denies diabetes. Past Surgical History Bypass. Cardiac catheterization with stents. Reported Medications Reported Meds & Active Scripts Active Reported Effient (Prasugrel) 10 Mg Tab 10 Mg PO DAILY Isosorbide Mononitrate 20 Mg Tab 40 Mg PO DAILY Take 2 doses 7 hours apart. Aspirin Children's (Aspirin) 81 Mg Chew 81 Mg CHEW DAILY Gabapentin 600 Mg Tab 600 Mg PO TID Xanax (Alprazolam) 1 Mg Tab 1 Mg PO Q8H PRN Oxycodone (Oxycodone HCl) 30 Mg Tab 30 Mg PO Q6HR Active Ordered Medications Current Medications Medications (Trade) Dose Ordered Sig/Libby Route Start Time Stop Time Status Last Admin (Nitrostat Sl) 0.4 mg Q5M PRN SL 03/26/18 20:30 03/26/18 21:18 (NS Flush) 2 ml UNSCH PRN IV FLUSH 03/26/18 22:00 (NS Flush) 2 ml BID IV FLUSH 03/27/18 09:00 03/26/18 22:32 (Duoneb Neb) 1 ampule Q4HR NEB PRN INH 03/27/18 08:00 Family History There is family history of CAD. Social History Continues to smoke cigarettes. States been smoking a few cigarettes a day for the last few months denies alcohol use. Denies illicit drug use. Physical Exam Vital Signs Vital Signs Date Time Temp Pulse Resp B/P (MAP) Pulse Ox O2 Delivery O2 Flow Rate FiO2 03/27/18 04:24 Nasal Cannula 2.00 03/27/18 03:28 98.5 71 16 147/77 (100) 97 03/27/18 00:05 98.5 76 17 133/74 (93) 93 03/26/18 22:32 20 03/26/18 21:19 76 16 164/89 (114) 99 Nasal Cannula 2.00 03/26/18 20:51 79 20 156/78 (104) 97 Nasal Cannula 03/26/18 20:44 79 20 148/79 (102) 100 Nasal Cannula 2.00 03/26/18 19:54 98.6 87 20 151/84 (106) 98 Physical Exam GENERAL: This is a well-nourished, well-developed patient, in no apparent distress. Patient speaks in clear complete sentences. Patient is pleasant. HEENT: Head is atraumatic and normocephalic. Neck is supple without lymphadenopathy and trachea is midline. No JVD or carotid bruits. CARDIOVASCULAR: Regular rate and rhythm without murmurs, gallops, or rubs. RESPIRATORY: Bilateral expiratory wheezing. Breath sounds equal bilaterally. No rales, or rhonchi. Chest wall is nontender. No use of accessory muscles. GASTROINTESTINAL: Abdomen is nontender, nondistended. Abdomen soft. No obvious pulsatile mass or bruit. No CVA tenderness. Strong femoral pulses bilaterally. Normal bowel sounds in all quadrants. MUSCULOSKELETAL: Patient is moving upper and lower extremities freely. No calf tenderness or edema, no Homans sign. Strong pulses in upper and lower extremities. NEUROLOGICAL: Patient is alert and oriented. Cranial nerves 2-12 are grossly intact. No focal deficits and speech is clear. SKIN: No rash and turgor is normal. Laboratory Laboratory Tests Test 03/26/18 20:00 03/26/18 22:45 03/27/18 02:20 03/27/18 08:00 White Blood Count 11.5 Red Blood Count 4.72 Hemoglobin 13.6 Hematocrit 41.6 Mean Corpuscular Volume 88.0 Mean Corpuscular Hemoglobin 28.7 Mean Corpuscular Hemoglobin Concent 32.7 Red Cell Distribution Width 14.0 Platelet Count 259 Mean Platelet Volume 8.2 Neutrophils (%) (Auto) 69.2 Lymphocytes (%) (Auto) 22.8 Monocytes (%) (Auto) 6.1 Eosinophils (%) (Auto) 1.3 Basophils (%) (Auto) 0.6 Neutrophils # (Auto) 7.9 Lymphocytes # (Auto) 2.6 Monocytes # (Auto) 0.7 Eosinophils # (Auto) 0.2 Basophils # (Auto) 0.1 CBC Comment DIFF FINAL Differential Comment Prothrombin Time 10.1 Prothromb Time International Ratio 1.0 Activated Partial Thromboplast Time 26.8 Blood Urea Nitrogen 17 Creatinine 1.12 Random Glucose 93 Calcium Level 8.5 Sodium Level 142 Potassium Level 3.8 Chloride Level 108 Carbon Dioxide Level 26.2 Anion Gap 8 Estimat Glomerular Filtration Rate 67 Troponin I LESS THAN 0.02 0.02 LESS THAN 0.02 Total Creatine Kinase 145 179 Creatine Kinase MB 4.6 4.7 Total Bilirubin 0.6 Direct Bilirubin 0.1 Indirect Bilirubin 0.5 Aspartate Amino Transf (AST/SGOT) 19 Alanine Aminotransferase (ALT/SGPT) 23 Alkaline Phosphatase 76 Total Protein 6.7 Albumin 3.6 Triglycerides Level 152 Cholesterol Level 183 LDL Cholesterol 98 HDL Cholesterol 54.3 Cholesterol/HDL Ratio 3.37 Result Diagram: 03/26/18199903/26/181999 Imaging Last 48 hours Impressions Chest X-Ray 03/26/18 0000 Signed Impressions: Service Date/Time: Monday, March 26, 2018 21:13 - CONCLUSION: No acute disease. Cr Tay MD Course EKGs are sinus rhythm without significant ST segment depressions or elevations. Caprini VTE Risk Assessment Caprini VTE Risk Assessment: Mod/High Risk (score >= 2) Caprini Risk Assessment Model Point Value = 1 Point Value = 2 Point Value = 3 Point Value = 5 Age 41-60 Minor surgery BMI > 25 kg/m2 Swollen legs Varicose veins or History of unexplained or recurrent spontaneous Oral contraceptives or hormone replacement Sepsis (< 1 month) Serious lung disease, including pneumonia (< 1 month) Abnormal pulmonary function Acute myocardial infarction Congestive heart failure (< 1 month) History of inflammatory bowel disease Medical patient at bed rest Age 61-74 Arthroscopic surgery Major open surgery (> 45 min) Laparoscopic surgery (> 45 min) Malignancy Confined to bed (> 72 hours) Immobilizing plaster cast Central venous access Age >= 75 History of VTE Family history of VTE Factor V Leiden Prothrombin [id number] Lupus anticoagulant Anticardiolipin antibodies Elevated serum homocysteine Heparin-induced thrombocytopenia Other congenital or acquired thrombophilia Stroke (< 1 month) Elective arthroplasty Hip, pelvis, or leg fracture Acute spinal cord injury (< 1 month) Prophylaxis Regimen Total Risk Factor Score Risk Level Prophylaxis Regimen 0-1 Low Early ambulation 2 Moderate Order ONE of the following: *Sequential Compression Device (SCD) *Heparin 5000 units SQ BID 3-4 Higher Order ONE of the following medications: *Heparin 5000 units SQ TID *Enoxaparin/Lovenox 40 mg SQ daily (WT < 150 kg, CrCl > 30 mL/min) *Enoxaparin/Lovenox 30 mg SQ daily (WT < 150 kg, CrCl > 10-29 mL/min) *Enoxaparin/Lovenox 30 mg SQ BID (WT < 150 kg, CrCl > 30 mL/min) AND/OR *Sequential Compression Device (SCD) 5 or more Highest Order ONE of the following medications: *Heparin 5000 units SQ TID (Preferred with Epidurals) *Enoxaparin/Lovenox 40 mg SQ daily (WT < 150 kg, CrCl > 30 mL/min) *Enoxaparin/Lovenox 30 mg SQ daily (WT < 150 kg, CrCl > 10-29 mL/min) *Enoxaparin/Lovenox 30 mg SQ BID (WT < 150 kg, CrCl > 30 mL/min) AND *Sequential Compression Device (SCD) Assessment and Plan Assessment and Plan * Chest pain: Patient will continue to have serial cardiac enzymes and EKGs for ruling out purposes. Patient was seen by Dr. Perez of cardiology in the chest pain center. He will undergo a Lexiscan and likely be discharged home if the stress test is nonischemic with instructions to follow-up with local cardiology and PCP. * CAD: Patient has had CABG. He has also had stents. This was discussed with Dr. Perez. Last had stents November 2016 and no longer needs the Effient. Otherwise we will continue his medications. * Hypertension: Continue medication. * Hyperlipidemia: Continue medication. * Tobacco abuse: Patient has been counseled on the importance of smoking cessation. Patient is stable at this time. He is agreeable to this plan. Keven Cerda March 27, 2018 10:33
--- NOTE | 2018-03-27 10:39 | HHI.DCPOC ---
Discharge Care Plan Diagnosis: (1) Chest pain (2) CAD (coronary artery disease) (3) Hx of CABG (4) H/O heart artery stent (5) Tobacco abuse (6) Hyperlipidemia (7) Hypertension Goals to Promote Your Health YOU WILL NEED TO HAVE LIVER FUNCTION LAB TESTS AND LIPID PANEL CHECKED WITH YOUR PRIMARY CARE DOCTOR IN 1 MONTH. * To prevent worsening of your condition and complications * To maintain your health at the optimal level Directions to Meet Your Goals Take your medications as prescribed Follow your dietary instruction Follow activity as directed Keep your appointments as scheduled Take your immunizations and boosters as scheduled If your symptoms worsen call your PCP, if no PCP go to Urgent Care Center or Emergency Room Smoking is Dangerous to Your Health. Avoid second hand smoke Call the 24-hour hour crisis hotline for domestic abuse at Keven Cerda March 27, 2018 10:39
[2018-03-27] MEDS ORDERED: ASPIRIN 81 MG CHEW TAB CHEW SCH (10:45)
[2018-03-27] MEDS ORDERED: ALPRAZolam 1 MG TAB PO PRN (10:45)
[2018-03-27] MEDS ORDERED: ISOSORBIDE MONONITRATE 30 MG CR TAB (IMDUR) PO SCH (10:45)
--- NOTE | 2018-03-27 10:58 | RADRPT ---
EXAM DATE/TIME: 03/27/2018 09:15 [facility] COMPARISON: MYOCARDIAL PERF PHARM SPECT, GATED W/EF, September 08, 2017, 10:41. INDICATIONS : Midsternal and left chest pain radiating to the left arm. Angina. DOSE: 25.6 mCi Tc99m Myoview at stress. 8.7 mCi Tc99m Myoview at rest. 0.4 mg Lexiscan STRESS SYMPTOMS: Dyspnea. EJECTION FRACTION: 44% MEDICAL HISTORY : Myocardial infarction. Chronic obstructive pulmonary disease. Hypercholesterolemia. Hypertension. HAMLET D. Hiatal hernia. Smoker. SURGICAL HISTORY : CABG Coronary artery stent. ENCOUNTER: Initial ACUITY: 1 day PAIN SCALE: 6/10 LOCATION: Midsternal chest TECHNIQUE: The patient underwent pharmacologic stress with infusion of prescribed dose. Continuous ECG tracing was monitored during stress. Gated SPECT imaging was performed after stress and conventional SPECT i maging was performed at rest. The examination was performed on a SPECT/CT scanner, both attenuation and non-corrected datasets were reviewed. FINDINGS: DISTRIBUTION: The maximum perfused segment at stress is in the inferior wall. PERFUSION STUDY: The pattern of perfusion at stress is within normal limits. GATED STUDY: Global hypokinesis. CONCLUSION: 1. No evidence to suggest ischemic myocardial changes. 2. There is global hypokinesis with decreased cardiac ejection fraction of 44%. RISK CATEGORY: Low Carrington Monge MD on March 27, 2018 at 10:54 Board Certified Radiologist. This report was verified electronically.
--- NOTE | 2018-03-27 11:06 | HHI.DCPOC ---
Discharge Care Plan Diagnosis: (1) Chest pain (2) CAD (coronary artery disease) (3) Hx of CABG (4) H/O heart artery stent (5) Tobacco abuse (6) Hyperlipidemia (7) Hypertension Goals to Promote Your Health NEED TO HAVE LIVER FUNCTION LAB TESTS AND LIPID PANEL RECHECKED BY YOUR PRIMARY CARE DOCTOR IN 1 MONTH. * To prevent worsening of your condition and complications * To maintain your health at the optimal level Directions to Meet Your Goals Take your medications as prescribed Follow your dietary instruction Follow activity as directed Keep your appointments as scheduled Take your immunizations and boosters as scheduled If your symptoms worsen call your PCP, if no PCP go to Urgent Care Center or Emergency Room Smoking is Dangerous to Your Health. Avoid second hand smoke Call the 24-hour hour crisis hotline for domestic abuse at Keven Cerda March 27, 2018 11:06
[2018-03-27] MEDS ORDERED: ISOS30TA3 PO (11:09)
[2018-03-27] MEDS ORDERED: NITR0.4S SL (11:09)
[2018-03-27] MEDS ORDERED: ATOR40TA16 PO (11:09)
[2018-03-27] MEDS ORDERED: NON-FORMULARY DRUG (Oxycodone 30 MG) PO SCH (12:00)
[2018-03-27] MEDS ORDERED: GABAPENTIN 300 MG CAP PO SCH (13:00)
--- NOTE | 2018-03-27 22:11 | TR ---
Date Performed: 03/27/2018 Time Performed: 09:34:00 DOCTOR: Iza Perez DRUG LIST: CLINICAL HISTORY: CHEST PAIN REASON FOR TEST: REASON FOR ENDING: OBSERVATION: CONCLUSION: Lexiscan stress test was performed under standard four minute protocol. Radionuclid e was injected one minute prior to ending the test. No electrocardiographic abormalities were present to suggest ischemia. Nuclear imaging and interpretation are pending. COMMENTS: no ischemia
--- NOTE | 2018-03-28 11:58 | EKG ---
Date Performed: 03/26/2018 Time Performed: 19:39:48 PTAGE: 62 years EKG: Sinus rhythm POSSIBLE LEFT ATRIAL ENLARGEMENT BORDERLINE ECG INTERPRETATION BASED ON A DEFAULT AGE OF 40 YEARS PREVIOUS TRACING : 01/16/2018 13.32 DOCTOR: Kinza Hawkins Interpretating Date/Time 03/28/2018 11:51:46
== END 2018-03-27 14:22 | disposition home or self-care (01) ==
LOC: NEPC 19:31 → NEDA 22:00 → NEPFCDU 23:32
PROVIDERS: ADMIT Internal Medicine Cardiovascular Disease; ATTEND Internal Medicine Cardiovascular Disease
DX: R07.9 Chest pain, unspecified (principal); I25.10 Atherosclerotic heart disease of native coronary artery without angina pectoris; G89.29 Other chronic pain; I10 Essential (primary) hypertension; E78.5 Hyperlipidemia, unspecified; I25.2 Old myocardial infarction; F17.210 Nicotine dependence, cigarettes, uncomplicated; K21.9 Gastro-esophageal reflux disease without esophagitis; E78.00 Pure hypercholesterolemia, unspecified; J44.9 Chronic obstructive pulmonary disease, unspecified; F41.9 Anxiety disorder, unspecified; F32.9 Major depressive disorder, single episode, unspecified; K44.9 Diaphragmatic hernia without obstruction or gangrene; G43.909 Migraine, unspecified, not intractable, without status migrainosus; Z79.01 Long term (current) use of anticoagulants; Z95.1 Presence of aortocoronary bypass graft; Z95.5 Presence of coronary angioplasty implant and graft; Z79.891 Long term (current) use of opiate analgesic
CPT/HCPCS: 71045; 78452; 80048; 80061; 80076; 82550; 82552; 84484; 85025; 85610; 85730; 93005; 93017; 94664; 99285; A9502; G0378; J2785

== ENCOUNTER 2018-04-01 20:59 | Emergency (ER) | payer MEDICAID ==
[~2018-04-01] VITALS: Ht 162.6 cm; Wt 68.0 kg
[~2018-04-01 20:59] MED LIST changes: -ASPI-516 CHEW; +ASPI81CH7 CHEW; +ATOR40TA16 PO; -FURO20TA PO; +ISOS30TA3 PO; -ISOS60TA PO; -LIPI80TA PO; -LISI10TA3 PO; +NITR0.4S SL; -OXYC-395 PO; +OXYC30TA PO; -POTA-163 PO; -PRAS10TA PO; -VENTAER INH
[2018-04-01 22:00] VITALS: BP 121/71; PULSE 86; RESP 20; O2SAT 98
[2018-04-01 22:09] VITALS: TEMP 97.1
[2018-04-01] MEDS ORDERED: SODIUM CHLOR 0.9% 1000 ML INJ 1,000 ML IV SCH (22:09)
--- NOTE | 2018-04-01 22:12 | PD ---
HPI Chief Complaint: Abdominal Pain Time Seen by Provider: 21:58 Travel History International Travel<30 days: No Contact w/Intl Traveler<30days: No Traveled to known affect area: No History of Present Illness HPI 62-year-old male presents via EMS for evaluation of lower abdominal pain and lower back pain. He reports that he has had lower abdominal pain for the past few days. Today he developed lower back pain. The pain is sharp and constant, associated with nausea. He reports that he had hematuria this morning as well. Reports that he has had kidney stones twice in the past, approximately 30 years ago, each requiring treatment with lithotripsy. He reports that this pain is similar and that is what prompted evaluation. He reports that he has bilateral small inguinal hernias which are causing him pain as well. He has had these for several months. Denies any dysuria, urethral discharge, fevers or chills. No other complaints at this time. PFSH Past Medical History Hx Anticoagulant Therapy: Yes Arthritis: Yes Anxiety: Yes Depression: Yes Heart Rhythm Problems: Yes Cancer: No Cardiac Catheterization: Yes Cardiovascular Problems: Yes High Cholesterol: Yes Chest Pain: Yes Congestive Heart Failure: No COPD: Yes Coronary Artery Disease: Yes Diabetes: No Diminished Hearing: No Gastrointestinal Disorders: Yes GERD: Yes Headaches: No Hiatal Hernia: Yes Hypertension: Yes Implanted Vascular Access Dvce: Yes Kidney Stones: Yes Neurologic: Yes Psychiatric: Yes Respiratory: Yes (COPD) Immunizations Current: Yes Migraines: Yes Myocardial Infarction: Yes Radiation Therapy: No Past Surgical History Abdominal Surgery: No Body Medical Devices: STENTS Cardiac Surgery: Yes (7 stents, 2 bypass) Coronary Artery Bypass Graft: Yes Coronary Stent: Yes (X 7) Ear Surgery: No Endocrine Surgery: No Eye Surgery: No Genitourinary Surgery: No Gynecologic Surgery: No Neurologic Surgery: No Oral Surgery: No Thoracic Surgery: Yes (HX of CABG x 2) Other Surgery: Yes (CABG, STENTING) Family History Family Myocardial Infarction: Yes Social History Alcohol Use: No Tobacco Use: Yes (5 per day) Substance Use: No Allergies-Medications (Allergen,Severity, Reaction): Coded Allergies: ketorolac (Verified Allergy, Severe, RASH, 03/26/18) penicillin G (Verified Allergy, Unknown, Anaphylaxis, 03/26/18) Reported Meds & Prescriptions Reported Meds & Active Scripts Active Zofran Odt (Ondansetron Odt) 4 Mg Tab 4 Mg SL Q6HR PRN Nitrostat SL (Nitroglycerin) 0.4 Mg Subl 0.4 Mg SL DIRECTED PRN 1 tablet under the tongue as needed for chest pain. Repeat every 5 minutes for a total of 3 DOSES or call 911 if NO relief. Atorvastatin (Atorvastatin Calcium) 40 Mg Tab 40 Mg PO HS Reported Aspirin Children's (Aspirin) 81 Mg Chew 81 Mg CHEW DAILY Gabapentin 600 Mg Tab 600 Mg PO TID Xanax (Alprazolam) 1 Mg Tab 1 Mg PO Q8H PRN Oxycodone (Oxycodone HCl) 30 Mg Tab 30 Mg PO Q6HR Review of Systems Except as stated in HPI: all other systems reviewed are Neg Physical Exam Narrative GENERAL: Well-developed well-nourished male no acute distress SKIN: Warm and dry. HEAD: Atraumatic. Normocephalic. EYES: Pupils equal and round. No scleral icterus. No injection or drainage. ENT: No nasal bleeding or discharge. Mucous membranes pink and moist. NECK: Trachea midline. No JVD. CARDIOVASCULAR: Regular rate and rhythm. No murmur appreciated. RESPIRATORY: No accessory muscle use. Clear to auscultation. Breath sounds equal bilaterally. GASTROINTESTINAL: Abdomen soft, tender to palpation left lower quadrant without guarding. examination reveals bilateral small inguinal hernias which reduce with palpation. Descended testicles which are nontender. No urethral discharge. MUSCULOSKELETAL: No obvious deformities. No clubbing. No cyanosis. No edema. No CVA tenderness NEUROLOGICAL: Awake and alert. No obvious cranial nerve deficits. Motor grossly within normal limits. Normal speech. Data Data Last Documented VS Vital Signs Date Time Temp Pulse Resp B/P (MAP) Pulse Ox O2 Delivery O2 Flow Rate FiO2 04/01/18 22:09 97.1 04/01/18 22:00 86 20 121/71 (88) 98 Orders Orders Complete Blood Count With Diff (04/01/18 22:09) Comprehensive Metabolic Panel (04/01/18 22:09) Lipase (04/01/18 22:09) Lactic Acid (04/01/18 22:09) Urinalysis - C+S If Indicated (04/01/18 22:09) Ct Abd/Pel W/O Iv Contrast (04/01/18 22:09) Iv Access Insert/Monitor (04/01/18 22:09) Morphine Inj (Morphine Inj) (04/01/18 22:15) Sodium Chlor 0.9% 1000 Ml Inj (Ns 1000 M (04/01/18 22:09) Ondansetron Odt (Zofran Odt) (04/01/18 22:15) Prochlorperazine Inj (Compazine Inj) (04/02/18 00:30) Ed Discharge Order (04/02/18 02:28) Labs Laboratory Tests Test 04/01/18 22:30 04/01/18 23:50 White Blood Count 12.0 TH/MM3 Red Blood Count 4.69 MIL/MM3 Hemoglobin 13.3 GM/DL Hematocrit 41.3 % Mean Corpuscular Volume 88.0 FL Mean Corpuscular Hemoglobin 28.4 PG Mean Corpuscular Hemoglobin Concent 32.3 % Red Cell Distribution Width 14.2 % Platelet Count 291 TH/MM3 Mean Platelet Volume 8.4 FL Neutrophils (%) (Auto) 63.5 % Lymphocytes (%) (Auto) 26.2 % Monocytes (%) (Auto) 5.8 % Eosinophils (%) (Auto) 3.8 % Basophils (%) (Auto) 0.7 % Neutrophils # (Auto) 7.6 TH/MM3 Lymphocytes # (Auto) 3.1 TH/MM3 Monocytes # (Auto) 0.7 TH/MM3 Eosinophils # (Auto) 0.5 TH/MM3 Basophils # (Auto) 0.1 TH/MM3 CBC Comment DIFF FINAL Differential Comment Blood Urea Nitrogen 21 MG/DL Creatinine 1.00 MG/DL Random Glucose 101 MG/DL Total Protein 6.9 GM/DL Albumin 3.9 GM/DL Calcium Level 8.7 MG/DL Alkaline Phosphatase 84 U/L Aspartate Amino Transf (AST/SGOT) 15 U/L Alanine Aminotransferase (ALT/SGPT) 35 U/L Total Bilirubin 0.2 MG/DL Sodium Level 142 MEQ/L Potassium Level 4.1 MEQ/L Chloride Level 105 MEQ/L Carbon Dioxide Level 30.2 MEQ/L Anion Gap 7 MEQ/L Estimat Glomerular Filtration Rate 76 ML/MIN Lactic Acid Level 0.9 mmol/L Lipase 93 U/L Urine Color YELLOW Urine Turbidity HAZY Urine pH 7.0 Urine Specific [place] 1.016 Urine Protein NEG mg/dL Urine Glucose (UA) NEG mg/dL Urine Ketones NEG mg/dL Urine Occult Blood MOD Urine Nitrite NEG Urine Bilirubin NEG Urine Urobilinogen LESS THAN 2.0 MG/DL Urine Leukocyte Esterase NEG Urine RBC 89 /hpf Urine WBC LESS THAN 1 /hpf Urine Squamous Epithelial Cells <1 /hpf Urine Amorphous Sediment RARE Microscopic Urinalysis Comment CULT NOT INDICATED MDM Medical Decision Making Medical Screen Exam Complete: Yes Emergency Medical Condition: Yes Medical Record Reviewed: Yes Differential Diagnosis Ureteral stone, hydronephrosis, diverticulitis, incarcerated hernia, strangulated hernia, testicular torsion, colitis Narrative Course The patient was placed on ECG monitoring pulse oximetry. Lab work, urinalysis, CT abdomen pelvis ordered. The patient will be given morphine and Zofran, IV fluids. At the end of my shift the patient was signed out to Dr. Lopez pending lab work and CT imaging. Scripts Ondansetron Odt (Zofran Odt) 4 Mg Tab 4 MG SL Q6HR Y for Nausea/Vomiting, #7 TAB 0 Refills Prov: Nilsa Lopez MD 04/02/18 [place] April 01, 2018 22:12
[2018-04-01] MEDS ORDERED: ONDANSETRON ODT 4 MG TAB PO ONE (22:15)
[2018-04-01] MEDS ORDERED: MORPHINE SULFATE 4 MG/ML INJ IV PUSH ONE (22:15)
[2018-04-01 22:48] LABS: AUTOMATED NEUTROPHIL # 7.6 TH/MM3 (1.8-7.7); BASOPHIL # 0.1 TH/MM3 (0-0.2); BASOPHIL % 0.7 % (0.0-2.0); EOSINOPHIL # 0.5 TH/MM3 (0-0.4); EOSINOPHIL % 3.8 % (0.0-4.0); HEMATOCRIT 41.3 % (39.0-51.0); HEMOGLOBIN 13.3 GM/DL (13.0-17.0); LYMPH % 26.2 % (9.0-44.0); LYMPHOCYTE # 3.1 TH/MM3 (1.0-4.8); MEAN CORPUSCULAR HEMOGLOBIN 28.4 PG (27.0-34.0); MEAN CORPUSCULAR HGB CONC 32.3 % (32.0-36.0); MEAN PLATELET VOLUME 8.4 FL (7.0-11.0); MONO % 5.8 % (0.0-8.0); MONOCYTE # 0.7 TH/MM3 (0-0.9); NEUT % 63.5 % (16.0-70.0); PLATELET COUNT 291 TH/MM3 (150-450); RED BLOOD COUNT 4.69 MIL/MM3 (4.50-5.90); RED CELL DISTRIBUTION WIDTH 14.2 % (11.6-17.2)
[2018-04-01 22:58] LABS: ALBUMIN 3.9 GM/DL (3.4-5.0); ALT (GPT) 35 U/L (12-78); AST (GOT) 15 U/L (15-37); BICARBONATE 30.2 MEQ/L (21.0-32.0); BLOOD UREA NITROGEN 21 MG/DL (7-18); CALCIUM 8.7 MG/DL (8.5-10.1); CHLORIDE 105 MEQ/L (98-107); GLOMERULAR FILTRATION RATE 76 ML/MIN (>89); GLUCOSE,RANDOM 101 MG/DL (74-106); SODIUM (NA) 142 MEQ/L (136-145)
[2018-04-01 23:01] LABS: ALKALINE PHOSPHATASE 84 U/L (45-117); TOTAL BILIRUBIN ADULT 0.2 MG/DL (0.2-1.0); TOTAL PROTEIN 6.9 GM/DL (6.4-8.2)
--- NOTE | 2018-04-02 00:07 | RADRPT ---
EXAM DATE: 04/01/2018 11:49 PM EDT AGE/SEX: 62 years / Male INDICATIONS: Bilateral flank pain. CLINICAL DATA: This is the patient's initial encounter. Patient reports that signs and symptoms have been present for 1 day and indicates a pain score of 7/10. MEDICAL/SURGICAL HISTORY: Cardiovascular disease. Renal calculi. Chronic obstructive pulmonar y disease. GERD. Hiatal hernia. Coronary artery stent. CABG. RADIATION DOSE: 10.81 CTDI (mGy) COMPARISON: [facility] [place] ABDOMEN & PELVIS W/O CONTRAST, 12/21/2017. . TECHNIQUE: Multiple contiguous axial images were obtained through the abdomen. Images were obtained using multiple row detector helical technique. Using dose reduction techniques, radiation dose was ke pt as low as reasonably achievable to obtain optimal diagnostic quality images. FINDINGS: Lower Lungs: The visualized lower lungs are clear. Liver: The liver has a homogeneous density without space-occupying lesion. There is no dilation of th e biliary tree. Spleen: Homogeneous density without enlargement. Pancreas: Unremarkable without mass or calcification. Kidneys: Normal in size and shape. No evidence of mass or hydronephrosis. Adrenal Glands: Unremarkable. Aorta: The aorta and proximal iliac vessels are grossly unremarkable without aneurysmal dilation. Bowel/Mesentery: No oral contrast was given limiting the sensitivity of the exam. The bowel loops are grossly unremarkable. The cecum and sigmoid colon have a normal configuration. Abdominal Wall: Intact. Retroperitoneum: No evidence of adenopathy in the retrocrural, para-aortic, or deep pelvic regions. Bladder: Contours are smooth. Reproductive Organs: No abnormal masses or calcifications seen. Inguinal: No evidence of adenopathy. Bilateral hernias are present containing fat. Small portion of the right anterior bladder extends into the right proximal hernia. Bony Structures: Unremarkable. CONCLUSION: 1. The kidneys are unremarkable in appearance with no renal calculi or obstruction. 2. Bilateral inguinal hernias again noted. 3. Unremarkable gallbladder. Electronically signed by: Billy Bradford MD 04/02/2018 12:05 AM EDT
[2018-04-02] MEDS ORDERED: PROCHLORPERAZINE INJ 10 MG/2 ML VIAL IV PUSH ONE (00:30)
[2018-04-02 01:15] LABS: AMORPHOUS SEDIMENT, URINE RARE; BILIRUBIN, URINE NEG (NEG); BLOOD, URINE MOD (NEG); GLUCOSE,URINE NEG (NEG); KETONE, URINE NEG (NEG); NITRITE,URINE NEG (NEG); SQUAMOUS EPITHELIAL CELL URINE <1 /hpf (0-5); URINE COLOR YELLOW (YELLW/STRAW); URINE LEUKOCYTE ESTERASE NEG (NEG)
[2018-04-02] MEDS ORDERED: ZOFR4TAB3 SL (01:51)
--- NOTE | 2018-04-02 01:52 | PD ---
Data Data Last Documented VS Vital Signs Date Time Temp Pulse Resp B/P (MAP) Pulse Ox O2 Delivery O2 Flow Rate FiO2 04/01/18 22:09 97.1 04/01/18 22:00 86 20 121/71 (88) 98 Orders Orders Complete Blood Count With Diff (04/01/18 22:09) Comprehensive Metabolic Panel (04/01/18 22:09) Lipase (04/01/18 22:09) Lactic Acid (04/01/18 22:09) Urinalysis - C+S If Indicated (04/01/18 22:09) Ct Abd/Pel W/O Iv Contrast (04/01/18 22:09) Iv Access Insert/Monitor (04/01/18 22:09) Morphine Inj (Morphine Inj) (04/01/18 22:15) Sodium Chlor 0.9% 1000 Ml Inj (Ns 1000 M (04/01/18 22:09) Ondansetron Odt (Zofran Odt) (04/01/18 22:15) Prochlorperazine Inj (Compazine Inj) (04/02/18 00:30) Labs Laboratory Tests Test 04/01/18 22:30 04/01/18 23:50 White Blood Count 12.0 TH/MM3 Red Blood Count 4.69 MIL/MM3 Hemoglobin 13.3 GM/DL Hematocrit 41.3 % Mean Corpuscular Volume 88.0 FL Mean Corpuscular Hemoglobin 28.4 PG Mean Corpuscular Hemoglobin Concent 32.3 % Red Cell Distribution Width 14.2 % Platelet Count 291 TH/MM3 Mean Platelet Volume 8.4 FL Neutrophils (%) (Auto) 63.5 % Lymphocytes (%) (Auto) 26.2 % Monocytes (%) (Auto) 5.8 % Eosinophils (%) (Auto) 3.8 % Basophils (%) (Auto) 0.7 % Neutrophils # (Auto) 7.6 TH/MM3 Lymphocytes # (Auto) 3.1 TH/MM3 Monocytes # (Auto) 0.7 TH/MM3 Eosinophils # (Auto) 0.5 TH/MM3 Basophils # (Auto) 0.1 TH/MM3 CBC Comment DIFF FINAL Differential Comment Blood Urea Nitrogen 21 MG/DL Creatinine 1.00 MG/DL Random Glucose 101 MG/DL Total Protein 6.9 GM/DL Albumin 3.9 GM/DL Calcium Level 8.7 MG/DL Alkaline Phosphatase 84 U/L Aspartate Amino Transf (AST/SGOT) 15 U/L Alanine Aminotransferase (ALT/SGPT) 35 U/L Total Bilirubin 0.2 MG/DL Sodium Level 142 MEQ/L Potassium Level 4.1 MEQ/L Chloride Level 105 MEQ/L Carbon Dioxide Level 30.2 MEQ/L Anion Gap 7 MEQ/L Estimat Glomerular Filtration Rate 76 ML/MIN Lactic Acid Level 0.9 mmol/L Lipase 93 U/L Urine Color YELLOW Urine Turbidity HAZY Urine pH 7.0 Urine Specific [place] 1.016 Urine Protein NEG mg/dL Urine Glucose (UA) NEG mg/dL Urine Ketones NEG mg/dL Urine Occult Blood MOD Urine Nitrite NEG Urine Bilirubin NEG Urine Urobilinogen LESS THAN 2.0 MG/DL Urine Leukocyte Esterase NEG Urine RBC 89 /hpf Urine WBC LESS THAN 1 /hpf Urine Squamous Epithelial Cells <1 /hpf Urine Amorphous Sediment RARE Microscopic Urinalysis Comment CULT NOT INDICATED MDM Medical Record Reviewed: Yes Supervised Visit with ZARI: No Narrative Course During the course of the patient's emergency department visit, the patient's history, examination, and differential diagnosis were reviewed with the patient. The patient was placed on a cardiac care unit nurse with oximetry and frequent blood pressure monitoring. The patient had IV access obtained and blood work sent for analysis. The patient's case was checked out to me by Seven, the physician optometry assistant. Please see his complete history and physical. The patient 's case was checked out to me at the conclusion of his shift pending CT scan and urinalysis results. The patient presented with back pain and reported episode of hematuria earlier today. The patient reports that he does have a history of kidney stones. He denies having any urologist currently. The patient was initially provided normal saline 1 L IV fluid bolus, morphine for pain, Zofran for nausea. The patient had persistent nausea and was given Compazine 5 mg IV. The patient's laboratory studies were reviewed and remarkable for a white count of 12, hemoglobin 13.3, platelets 291 with a normal differential, CMP is remarkable for a BUN of 21, GFR 76, lipase 93, lactic acid 0.9. Urinalysis shows moderate occult blood 89 RBCs, otherwise unremarkable. Radiology studies were reviewed and remarkable for 1. The kidneys are unremarkable in appearance with no renal calculi or obstruction. 2. Bilateral inguinal hernias again noted. 3. Unremarkable gallbladder The patient was instructed regarding his findings. The patient was instructed that he will need to follow-up with a urologist for consideration of cystoscopy and additional testing given his hematuria. The patient will be discharged home with information regarding the urologist transmissions systems operator for follow-up, Dr. Stokes. He is instructed to call in the morning for a follow-up appointment. Regarding the patient's chronic inguinal hernias, the patient is given the name of the general surgeon transmissions systems operator for follow-up regarding this. The patient in the meantime is instructed to continue on his usual pain management regimen. The patient will be discharged home with a prescription for nausea. The patient is resting comfortably and feels better, is alert and in no distress. The patient's results and examination findings were discussed with the patient. The repeat examination is unremarkable and benign. The history, exam, diagnostic testing, and current condition do not suggest any significant pathology to warrant further testing, continued ED treatment, admission, or surgical evaluation at this point. The vital signs have been stable. The patient does not have uncontrollable pain, intractable vomiting, or other significant symptoms. The patient's condition is stable and appropriate for discharge. The patient will pursue further outpatient evaluation with a primary care physician or other designated or consulting physician as indicated in the discharge instructions. The patient is instructed to report back to the emergency department immediately for reexamination in the mean time if he/ she develops any new or worsening signs or symptoms. The patient expressed understanding and was agreeable with this plan. Diagnosis Primary Impression: Hematuria Qualified Codes: R31.0 - Gross hematuria Additional Impressions: Back pain Qualified Codes: M54.5 - Low back pain; G89.29 - Other chronic pain Bilateral inguinal hernia Qualified Codes: K40.20 - Bilateral inguinal hernia, without obstruction or gangrene, not specified as recurrent Referrals: Billy Ba MD call for appointment Abdiel Stokes MD 2 days Med/Other Pt SpecificInfo: Prescription(s) given Scripts Ondansetron Odt (Zofran Odt) 4 Mg Tab 4 MG SL Q6HR Y for Nausea/Vomiting, #7 TAB 0 Refills Prov: Nilsa Lopez MD 04/02/18 Disposition: 01 DISCHARGE HOME Condition: Stable Nilsa Lopez MD April 02, 2018 01:51
== END 2018-04-02 02:38 | disposition home or self-care (01) ==
LOC: NEPE 20:59
DX: R31.0 Gross hematuria (principal); G89.29 Other chronic pain; M54.5 Low back pain; K40.20 Bilateral inguinal hernia, without obstruction or gangrene, not specified as recurrent; E78.00 Pure hypercholesterolemia, unspecified; F17.200 Nicotine dependence, unspecified, uncomplicated
CPT/HCPCS: 74176; 80053; 81001; 83605; 83690; 85025; 96374; 96375; 99284; J0780; J2270; J7030

== ENCOUNTER 2018-04-03 14:09 | Emergency (ER) | payer MEDICAID ==
[~2018-04-03] VITALS: Ht 167.6 cm; Wt 60.0 kg
[~2018-04-03 14:09] MED LIST changes: -ISOS30TA3 PO; +ZOFR4TAB3 SL
[2018-04-03] MEDS ORDERED: IOHEXOL 350 MG/ML 10 ML VIAL (for RAD DIAG) IVCONTRAST ONE (14:10)
[2018-04-03 14:21] VITALS: BP 146/87; PULSE 89; RESP 16; TEMP 98.4; O2SAT 98
[2018-04-03] MEDS ORDERED: SODIUM CHLORIDE 0.9% FLUSH 10 ML FLUSH IVF PRN (14:30)
[2018-04-03] MEDS ORDERED: SODIUM CHLOR 0.9% 1000 ML INJ 1,000 ML IV ONE (14:30)
--- NOTE | 2018-04-03 15:19 | PD ---
HPI Chief Complaint: Syncope/Near-Syncope Time Seen by Provider: 14:26 Travel History International Travel<30 days: No Contact w/Intl Traveler<30days: No Traveled to known affect area: No History of Present Illness HPI Patient is a 62-year-old male presents emergency department after 2 syncopal episodes today. Patient has had syncopal episodes on and off for as long as he can remember. 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 He does endorse minimal shortness of breath yesterday but none today. Denies any chest pain. When I ask him with Sridevi the remember for blacking out he says nothing , he does have some psychiatric overtones to his history. Denies any palpitations denies any abdominal pain nausea vomiting. He does endorse a right -sided headache. States he thinks he might have hit his head. 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 Denies a history of blood clots. States he has been seen by the neurologist and his primary care physician for the syncopal episodes and nothing is yet been established. He states is never had a stress test before. States symptoms are moderate, so she was some shortness of breath, duration is today, context as above per PFSH Past Medical History Hx Anticoagulant Therapy: Yes Arthritis: Yes Anxiety: Yes Depression: Yes Heart Rhythm Problems: Yes Cancer: No Cardiac Catheterization: Yes Cardiovascular Problems: Yes High Cholesterol: Yes Chest Pain: Yes Congestive Heart Failure: No COPD: Yes Coronary Artery Disease: Yes Diabetes: No Diminished Hearing: No Gastrointestinal Disorders: Yes GERD: Yes Headaches: No Hiatal Hernia: Yes Hypertension: Yes Implanted Vascular Access Dvce: Yes Kidney Stones: Yes Neurologic: Yes Psychiatric: Yes Respiratory: Yes (COPD) Immunizations Current: Yes Migraines: Yes Myocardial Infarction: Yes Radiation Therapy: No Tetanus Vaccination: < 5 Years Influenza Vaccination: Yes Past Surgical History Abdominal Surgery: No Body Medical Devices: STENTS Cardiac Surgery: Yes (7 stents, 2 bypass) Coronary Artery Bypass Graft: Yes Coronary Stent: Yes (X 7) Ear Surgery: No Endocrine Surgery: No Eye Surgery: No Genitourinary Surgery: No Gynecologic Surgery: No Neurologic Surgery: No Oral Surgery: No Thoracic Surgery: Yes (HX of CABG x 2) Other Surgery: Yes (CABG, STENTING) Family History Family Myocardial Infarction: Yes Social History Alcohol Use: No Tobacco Use: Yes (5 per day) Substance Use: No Allergies-Medications (Allergen,Severity, Reaction): Coded Allergies: ketorolac (Verified Allergy, Severe, RASH, 04/03/18) penicillin G (Verified Allergy, Unknown, Anaphylaxis, 04/03/18) Reported Meds & Prescriptions Reported Meds & Active Scripts Active Zofran Odt (Ondansetron Odt) 4 Mg Tab 4 Mg SL Q6HR PRN Nitrostat SL (Nitroglycerin) 0.4 Mg Subl 0.4 Mg SL DIRECTED PRN 1 tablet under the tongue as needed for chest pain. Repeat every 5 minutes for a total of 3 DOSES or call 911 if NO relief. Atorvastatin (Atorvastatin Calcium) 40 Mg Tab 40 Mg PO HS Reported Aspirin Children's (Aspirin) 81 Mg Chew 81 Mg CHEW DAILY Gabapentin 600 Mg Tab 600 Mg PO TID Xanax (Alprazolam) 1 Mg Tab 1 Mg PO Q8H PRN Oxycodone (Oxycodone HCl) 30 Mg Tab 30 Mg PO Q6HR Review of Systems Except as stated in HPI: all other systems reviewed are Neg Physical Exam Narrative GENERAL: Well-developed well-nourished anxious male nontoxic appearance. SKIN: Focused skin assessment warm/dry. HEAD: Atraumatic. Normocephalic. EYES: Pupils equal and round. No scleral icterus. No injection or drainage. ENT: No nasal bleeding or discharge. Mucous membranes pink and moist. NECK: Trachea midline. No JVD. CARDIOVASCULAR: Regular rate and rhythm. No murmur appreciated. RESPIRATORY: No accessory muscle use. Clear to auscultation. Breath sounds equal bilaterally. GASTROINTESTINAL: Abdomen soft, non-tender, nondistended. Hepatic and splenic margins not palpable. MUSCULOSKELETAL: No obvious deformities. No clubbing. No cyanosis. No edema. NEUROLOGICAL: Awake and alert. Cranial nerves II through XII grossly intact and nonfocal, 5 out of 5 strength in all 4 extremities PSYCHIATRIC: Anxious affect, normal mood. Almost flight of ideas thought content. Data Data Last Documented VS Vital Signs Date Time Temp Pulse Resp B/P (MAP) Pulse Ox O2 Delivery O2 Flow Rate FiO2 04/03/18 17:45 04/03/18 17:44 70 16 98 Room Air 04/03/18 14:21 98.4 Orders Orders Electrocardiogram (04/03/18 14:30) Complete Blood Count With Diff (04/03/18 14:30) Comprehensive Metabolic Panel (04/03/18 14:30) Troponin I (04/03/18 14:30) Chest, Single Ap (04/03/18 14:30) Ecg Monitoring (04/03/18 14:30) Iv Access Insert/Monitor (04/03/18 14:30) Oximetry (04/03/18 14:30) Sodium Chloride 0.9% Flush (Ns Flush) (04/03/18 14:30) Sodium Chlor 0.9% 1000 Ml Inj (Ns 1000 M (04/03/18 14:30) D-Dimer (04/03/18 14:30) Ct Pulmonary Angiogram (04/03/18 ) Ct Brain W/O Iv Contrast(Rout) (04/03/18 ) Iohexol 350 Inj (Omnipaque 350 Inj) (04/03/18 14:10) Ed Discharge Order (04/03/18 17:33) Labs Laboratory Tests Test 04/03/18 14:55 White Blood Count 9.8 TH/MM3 Red Blood Count 4.84 MIL/MM3 Hemoglobin 14.0 GM/DL Hematocrit 42.8 % Mean Corpuscular Volume 88.4 FL Mean Corpuscular Hemoglobin 28.9 PG Mean Corpuscular Hemoglobin Concent 32.7 % Red Cell Distribution Width 14.4 % Platelet Count 259 TH/MM3 Mean Platelet Volume 8.7 FL Neutrophils (%) (Auto) 76.7 % Lymphocytes (%) (Auto) 16.4 % Monocytes (%) (Auto) 4.7 % Eosinophils (%) (Auto) 1.6 % Basophils (%) (Auto) 0.6 % Neutrophils # (Auto) 7.5 TH/MM3 Lymphocytes # (Auto) 1.6 TH/MM3 Monocytes # (Auto) 0.5 TH/MM3 Eosinophils # (Auto) 0.2 TH/MM3 Basophils # (Auto) 0.1 TH/MM3 CBC Comment DIFF FINAL Differential Comment D-Dimer Quantitative (PE/DVT) 1.17 MG/L FEU Blood Urea Nitrogen 10 MG/DL Creatinine 0.84 MG/DL Random Glucose 101 MG/DL Total Protein 6.5 GM/DL Albumin 3.5 GM/DL Calcium Level 8.6 MG/DL Alkaline Phosphatase 73 U/L Aspartate Amino Transf (AST/SGOT) 16 U/L Alanine Aminotransferase (ALT/SGPT) 26 U/L Total Bilirubin 0.5 MG/DL Sodium Level 143 MEQ/L Potassium Level 4.0 MEQ/L Chloride Level 109 MEQ/L Carbon Dioxide Level 25.5 MEQ/L Anion Gap 9 MEQ/L Estimat Glomerular Filtration Rate 93 ML/MIN Troponin I LESS THAN 0.02 NG/ML MDM Medical Decision Making Medical Screen Exam Complete: Yes Emergency Medical Condition: Yes Differential Diagnosis Syncope, ACS unlikely, TX unlikely, PE,. Narrative Course Patient room to the emergency department, shortly after initial discussion the patient is also stating that he has been having some intermittent flank pain which she is not having now has a history of kidney stones, he states he has also been having some right-sided headache, does not feeling himself. He also endorses a cough and thinks he might of developing pneumonia. Patient's workup was only significant for a minimally elevated d-dimer, CT PE protocol was negative, EKG negative, troponin negative, electrolytes creatinine within normal limits. The patient is certainly in his thought content but certainly is not a threat to himself or others. Discussed that his workup is essentially been negative here in the emergency department there is no indication further workup or inpatient management as patient had a stress test earlier this month, of note he did have a diagnosis of pulmonary embolism in the past but was told by his primary care physician to stop taking his anticoagulants. He is stable for discharge for further outpatient management Diagnosis Primary Impression: Syncopal episodes Disposition: 01 DISCHARGE HOME Condition: Stable Abe Nguyen MD April 03, 2018 15:19
--- NOTE | 2018-04-03 15:28 | RADRPT ---
EXAM DATE: 04/03/2018 3:19 PM EDT AGE/SEX: 62 years / Male INDICATIONS: Syncopal episode today. CLINICAL DATA: This is the patient's initial encounter. Patient reports that signs and symptoms have been present for 1 day and indicates a pain score of 0/10. MEDICAL/SURGICAL HISTORY: Chronic obstructive pulmonary disease. Congestive heart failure. Ca rdiovascular disease. Coronary artery stent. CABG. [place] [facility] [place] . FINDINGS: Stable median sternotomy wires. No new focal pleural or parenchymal opacities. Cardiomediastinal cont ours are within normal limits. Bony thorax is intact. CONCLUSION: 1. No acute cardiopulmonary disease. Electronically signed by: Wilfred Sotelo MD 04/03/2018 3:27 PM EDT
[2018-04-03 15:39] LABS: AUTOMATED NEUTROPHIL # 7.5 TH/MM3 (1.8-7.7); BASOPHIL # 0.1 TH/MM3 (0-0.2); BASOPHIL % 0.6 % (0.0-2.0); EOSINOPHIL # 0.2 TH/MM3 (0-0.4); EOSINOPHIL % 1.6 % (0.0-4.0); HEMATOCRIT 42.8 % (39.0-51.0); LYMPH % 16.4 % (9.0-44.0); LYMPHOCYTE # 1.6 TH/MM3 (1.0-4.8); MEAN CELL VOLUME 88.4 FL (80.0-100.0); MEAN CORPUSCULAR HEMOGLOBIN 28.9 PG (27.0-34.0); MEAN CORPUSCULAR HGB CONC 32.7 % (32.0-36.0); MEAN PLATELET VOLUME 8.7 FL (7.0-11.0); MONO % 4.7 % (0.0-8.0); MONOCYTE # 0.5 TH/MM3 (0-0.9); NEUT % 76.7 % (16.0-70.0); PLATELET COUNT 259 TH/MM3 (150-450); RED BLOOD COUNT 4.84 MIL/MM3 (4.50-5.90); RED CELL DISTRIBUTION WIDTH 14.4 % (11.6-17.2); WHITE BLOOD COUNT 9.8 TH/MM3 (4.0-11.0)
[2018-04-03 16:04] LABS: ALBUMIN 3.5 GM/DL (3.4-5.0); ALKALINE PHOSPHATASE 73 U/L (45-117); ALT (GPT) 26 U/L (12-78); AST (GOT) 16 U/L (15-37); BICARBONATE 25.5 MEQ/L (21.0-32.0); BLOOD UREA NITROGEN 10 MG/DL (7-18); CALCIUM 8.6 MG/DL (8.5-10.1); CHLORIDE 109 MEQ/L (98-107); CREATININE 0.84 MG/DL (0.60-1.30); GLOMERULAR FILTRATION RATE 93 ML/MIN (>89); GLUCOSE,RANDOM 101 MG/DL (74-106); SODIUM (NA) 143 MEQ/L (136-145); TOTAL BILIRUBIN ADULT 0.5 MG/DL (0.2-1.0); TOTAL PROTEIN 6.5 GM/DL (6.4-8.2); TROPONIN I LESS THAN 0.02 NG/ML (0.02-0.05)
--- NOTE | 2018-04-03 17:19 | RADRPT ---
EXAM DATE: 04/03/2018 5:13 PM EDT AGE/SEX: 62 years / Male INDICATIONS: Syncope episode. CLINICAL DATA: This is the patient's initial encounter. Patient reports that signs and symptoms have been present for 1 day and indicates a pain score of 0/10. MEDICAL/SURGICAL HISTORY: Hypertension. Cardiovascular disease. Chronic obstructive pulmonary dis ease. pulmonary embolus. CABG. RADIATION DOSE: 56.35 CTDI (mGy) COMPARISON: [facility] [place]/O [place], 12/19/2017. . TECHNIQUE: CT of the head without contrast. Using automated exposure control and adjustment of the mA and/or kV according to patient size, radiation dose was kept as low as reasonably achievable to ob tain optimal diagnostic quality images. FINDINGS: Cerebrum: The ventricles are normal for age. No evidence of midline shift, mass lesion, hemorrhage or acute infarction. No extraaxial fluid collections are seen. Posterior Fossa: The cerebellum and brainstem are intact. The 4th ventricle is midline. The cerebe llopontine angle is unremarkable. Extracranial: The visualized portion of the orbits is intact. Skull: The calvaria is intact. No evidence of skull fracture. CONCLUSION: 1. No acute intracranial abnormalities. Remote right nasal bone fracture. Electronically signed by: Hank Snell MD 04/03/2018 5:17 PM EDT
--- NOTE | 2018-04-03 17:31 | RADRPT ---
EXAM DATE: 04/03/2018 5:22 PM EDT AGE/SEX: 62 years / Male INDICATIONS: Short of breath, with syncope episode. CLINICAL DATA: This is the patient's initial encounter. Patient reports that signs and symptoms have been present for 1 day and indicates a pain score of 0/10. MEDICAL/SURGICAL HISTORY: Cardiovascular disease. Hypertension. Chronic obstructive pulmonary dis ease. pulmonary embolus. CABG. RADIATION DOSE: 6.80 CTDI (mGy) COMPARISON: [facility] – [place], CT PULMONARY ANGIOGRAM, 12/19/2017. . TECHNIQUE: Volumetric scanning was performed using a multi-row detector CT scanner during bolus infu antoinette of 71 ml Omnipaque 350 (iohexol) nonionic water-soluble contrast as a single exam dose. The patti a was post processed with a variety of visualization algorithms including full volume maximum intensi ty projection and sliding thin slab reformation. Using automated exposure control and adjustment of the mA and/or kV according to patient size, radiation dose was kept as low as reasonably achievable t o obtain optimal diagnostic quality images. FINDINGS: No filling defects identified to suggest pulmonary embolic disease. There is mild emphysema. No pleur al or pericardial effusion. No hilar, mediastinal or axillary adenopathy. No consolidation. Dense cor onary calcifications. CONCLUSION: 1. Negative for pulmonary embolic disease. Dense coronary artery calcifications. Mild centrilobular emphysema. Electronically signed by: Hank Snell MD 04/03/2018 5:30 PM EDT
[2018-04-03 17:44] VITALS: BP 163/85; PULSE 70; RESP 16; O2SAT 98
--- NOTE | 2018-04-04 18:24 | EKG ---
Date Performed: 04/03/2018 Time Performed: 14:50:47 PTAGE: 62 years EKG: Sinus rhythm POSSIBLE LEFT ATRIAL ENLARGEMENT Since previous tracing, no significant change noted BORDERLINE ECG PREVIOUS TRACING : 03/26/2018 22.52 DOCTOR: Iza Perez Interpretating Date/Time 04/04/2018 18:23:54
== END 2018-04-03 18:01 | disposition home or self-care (01) ==
LOC: NEPD 14:09
DX: R55 Syncope and collapse (principal); R94.31 Abnormal electrocardiogram [ECG] [EKG]; R06.02 Shortness of breath; I10 Essential (primary) hypertension; F41.8 Other specified anxiety disorders; E78.00 Pure hypercholesterolemia, unspecified; J44.9 Chronic obstructive pulmonary disease, unspecified; I25.10 Atherosclerotic heart disease of native coronary artery without angina pectoris; K21.9 Gastro-esophageal reflux disease without esophagitis; I25.2 Old myocardial infarction; Z95.1 Presence of aortocoronary bypass graft; Z95.5 Presence of coronary angioplasty implant and graft; Z72.0 Tobacco use; Z79.01 Long term (current) use of anticoagulants; Z88.0 Allergy status to penicillin; Z87.442 Personal history of urinary calculi; Z86.711 Personal history of pulmonary embolism
CPT/HCPCS: 70450; 71045; 71275; 80053; 84484; 85025; 85379; 93005; 96360; 99285; J7030; Q9967

== ENCOUNTER 2018-04-03 18:19 | Emergency (ER) | payer MEDICAID ==
[~2018-04-03] VITALS: Ht 168.9 cm; Wt 60.0 kg
[2018-04-03 18:23] VITALS: BP 158/83; PULSE 103; RESP 28; TEMP 98.3; O2SAT 97
[2018-04-03 19:14] VITALS: BP_SYST 127; BP_SYST 145; BP_DIAS 81; BP_DIAS 85; BP_DIAS 89; RESP 16
--- NOTE | 2018-04-03 19:28 | PD ---
HPI . syncope recurrent Chief Complaint: Syncope/Near-Syncope Time Seen by Provider: 19:16 Travel History International Travel<30 days: Yes Contact w/Intl Traveler<30days: Yes Name of Country Traveled to: [place] Traveled to known affect area: Yes History of Present Illness HPI pt 62yo M with PMH of CAD s/p CABG and multiple stents, chronic pain on oxycodone and follows with pain management here with c/o chest pain since last night. He was admitted to CP center Dr Arthur did nuclear stress no signs of ischemia and now pt returns feeling dizziness then 2 syncopal episodes 30 minutes apart, then called 911 transported to ER pt awake alert and reports head traum forehead . from AM fall he had full work up and CT at 8 AM in our ER . " whats happening to me doctor" he asks. pt slightly strange affect . denies CP no SOB no vertigo at this time, he reports head injury forehead local frontal pain from ealier fall in AM , alos right hand localized numbness PFSH Past Medical History Hx Anticoagulant Therapy: Yes Arthritis: Yes Anxiety: Yes Depression: Yes Heart Rhythm Problems: Yes Cancer: No Cardiac Catheterization: Yes Cardiovascular Problems: Yes High Cholesterol: Yes Chest Pain: Yes Congestive Heart Failure: No COPD: Yes Coronary Artery Disease: Yes Diabetes: No Diminished Hearing: No Gastrointestinal Disorders: Yes GERD: Yes Headaches: No Hiatal Hernia: Yes Hypertension: Yes Implanted Vascular Access Dvce: Yes Kidney Stones: Yes Neurologic: Yes Psychiatric: Yes Respiratory: Yes (COPD) Immunizations Current: Yes Migraines: Yes Myocardial Infarction: Yes Radiation Therapy: No Past Surgical History Abdominal Surgery: No Body Medical Devices: STENTS Cardiac Surgery: Yes (7 stents, 2 bypass) Coronary Artery Bypass Graft: Yes Coronary Stent: Yes (X 7) Ear Surgery: No Endocrine Surgery: No Eye Surgery: No Genitourinary Surgery: No Gynecologic Surgery: No Neurologic Surgery: No Oral Surgery: No Thoracic Surgery: Yes (HX of CABG x 2) Other Surgery: Yes (CABG, STENTING) Family History Family Myocardial Infarction: Yes Social History Alcohol Use: No Tobacco Use: Yes (5 per day) Substance Use: Yes (WEED) Allergies-Medications (Allergen,Severity, Reaction): Coded Allergies: ketorolac (Verified Allergy, Severe, RASH, 04/03/18) penicillin G (Verified Allergy, Unknown, Anaphylaxis, 04/03/18) Reported Meds & Prescriptions Reported Meds & Active Scripts Active Zofran Odt (Ondansetron Odt) 4 Mg Tab 4 Mg SL Q6HR PRN Nitrostat SL (Nitroglycerin) 0.4 Mg Subl 0.4 Mg SL DIRECTED PRN 1 tablet under the tongue as needed for chest pain. Repeat every 5 minutes for a total of 3 DOSES or call 911 if NO relief. Atorvastatin (Atorvastatin Calcium) 40 Mg Tab 40 Mg PO HS Reported Aspirin Children's (Aspirin) 81 Mg Chew 81 Mg CHEW DAILY Gabapentin 600 Mg Tab 600 Mg PO TID Xanax (Alprazolam) 1 Mg Tab 1 Mg PO Q8H PRN Oxycodone (Oxycodone HCl) 30 Mg Tab 30 Mg PO Q6HR Review of Systems Except as stated in HPI: all other systems reviewed are Neg Neurologic: Positive: Dizziness, Syncope Physical Exam Narrative GENERAL: alert awake non toxic appearance SKIN: Warm and dry. HEAD: Atraumatic. Normocephalic. EYES: Pupils equal and round. No scleral icterus. No injection or drainage. ENT: No nasal bleeding or discharge. Mucous membranes pink and moist. NECK: Trachea midline. No JVD. CARDIOVASCULAR: Regular rate and rhythm. RESPIRATORY: No accessory muscle use. Clear to auscultation. Breath sounds equal bilaterally. GASTROINTESTINAL: Abdomen soft, non-tender, nondistended. Hepatic and splenic margins not palpable. MUSCULOSKELETAL: Extremities without clubbing, cyanosis, or edema. No obvious deformities. NEUROLOGICAL: Awake and alert. No obvious cranial nerve deficits. Motor grossly within normal limits. Five out of 5 muscle strength in the arms and legs. Normal speech. PSYCHIATRIC: Appropriate mood and affect; insight and judgment normal. Data Data Last Documented VS Vital Signs Date Time Temp Pulse Resp B/P (MAP) Pulse Ox O2 Delivery O2 Flow Rate FiO2 04/03/18 20:45 04/03/18 19:14 83 16 87 16 95 16 04/03/18 18:23 98.3 97 Orders Orders Electrocardiogram (04/03/18 20:30) Complete Blood Count With Diff (04/03/18 20:30) Comprehensive Metabolic Panel (04/03/18 20:30) Troponin I (04/03/18 20:30) Sodium Chlor 0.9% 1000 Ml Inj (Ns 1000 M (04/03/18 20:30) MDM Medical Decision Making Medical Screen Exam Complete: Yes Emergency Medical Condition: Yes Medical Record Reviewed: Yes Differential Diagnosis pt could have cardiac arrhythmia vs neurologic event vs vasovagal vs trauma head bleed vs etoh intox vs malingering , other Narrative Course pt left after my interview and HPI and Physical exam and he kept wanting to leave before EKG labs and final analysis , His orthostatic vitals where normal and he walked witout any ataxia or syncopal symptoms Diagnosis Primary Impression: Syncope Disposition: 07 AGAINST MEDICAL ADVICE Kg Lyles MD April 03, 2018 19:28
[2018-04-03] MEDS ORDERED: SODIUM CHLOR 0.9% 1000 ML INJ 1,000 ML IV ONE (20:30)
--- NOTE | 2018-04-04 18:24 | EKG ---
Date Performed: 04/03/2018 Time Performed: 20:37:45 PTAGE: 62 years EKG: Sinus rhythm POSSIBLE LEFT ATRIAL ENLARGEMENT NONSPECIFIC T-WAVE ABNORMALITY Since previous tracing, no significa nt change noted BORDERLINE ECG PREVIOUS TRACING : 04/03/2018 14.50 DOCTOR: Iza Perez Interpretating Date/Time 04/04/2018 18:24:04
== END 2018-04-03 20:45 | disposition left against medical advice (07) ==
LOC: NEPE 18:19
DX: R55 Syncope and collapse (principal); R94.31 Abnormal electrocardiogram [ECG] [EKG]; F12.90 Cannabis use, unspecified, uncomplicated; Z72.0 Tobacco use; Z88.0 Allergy status to penicillin
CPT/HCPCS: 93005; 96360

== ENCOUNTER 2018-04-03 21:56 | Emergency (ER) | payer MEDICAID ==
[~2018-04-03] VITALS: Ht 167.6 cm; Wt 64.0 kg
[2018-04-03 22:25] VITALS: BP 155/91; PULSE 79; RESP 18; TEMP 99.7; O2SAT 98
== END 2018-04-04 00:20 | disposition left against medical advice (07) ==
LOC: NED 23:59
DX: R55 Syncope and collapse (principal)
CPT/HCPCS: 99281

== ENCOUNTER 2018-04-23 18:49 | Emergency (ER) | payer MEDICAID ==
[~2018-04-23] VITALS: Ht 170.2 cm; Wt 60.0 kg
[2018-04-23 18:52] VITALS: BP 148/77; PULSE 98; RESP 19; TEMP 97.9; O2SAT 99
[2018-04-23 19:00] VITALS: BP 145/87; PULSE 94; RESP 22; O2SAT 98
--- NOTE | 2018-04-23 19:13 | PD ---
HPI Chief Complaint: Chest Pain Time Seen by Provider: 18:57 Travel History International Travel<30 days: No Contact w/Intl Traveler<30days: No Traveled to known affect area: No History of Present Illness HPI 62-year-old male smoker with history of coronary disease, hypertension, hyperlipidemia, presents for evaluation. Reports a 20 minutes prior to arrival he was walking to the bus stop when he had chest pain with associated syncopal event. He reports that he hit his forehead on the ground. He is complaining of headache, neck pain and chest pain. Chest pain is tight, substernal, radiating to left arm. He reports that the headache is frontal, aching and he reports mild neck pain. Denies cough, congestion, diaphoresis, abdominal pain, nausea or vomiting. Per chart review the patient has been seen here numerous times complaining of similar symptoms of chest pain and syncope. He has been admitted here several times for evaluation of the symptoms. Frequently the patient leaves AMA prior to his workup being completed. Most recently the patient was admitted to the [facility] on March 26 where he had a low risk myocardial perfusion scan. He had a CT pulmonary angiogram on April 03 for evaluation of syncope and was normal. He was admitted to the [facility] on January 16. He was admitted on December 19 for possible pulmonary embolism however it appears that on reread of the CT pulmonary angiogram it was felt that the index of suspicion for pulmonary embolism is low and therefore ventilation perfusion scan was obtained and there is no evidence of mismatch on that. He had ultrasounds of the lower extremities which were negative for DVT. He reports that he took his baby aspirin as prescribed this morning. No other complaints. PFSH Past Medical History Hx Anticoagulant Therapy: Yes Arthritis: Yes Asthma: No Autoimmune Disease: No Blood Disorders: No Anxiety: Yes Depression: Yes Heart Rhythm Problems: Yes Cancer: No Cardiac Catheterization: Yes Cardiovascular Problems: Yes High Cholesterol: Yes Chemotherapy: No Chest Pain: Yes Congestive Heart Failure: No COPD: Yes Cerebrovascular Accident: No Coronary Artery Disease: Yes Diabetes: No Diminished Hearing: No Endocrine: No Gastrointestinal Disorders: Yes GERD: Yes Genitourinary: No Headaches: No Hiatal Hernia: Yes Heparin Induced Thrombocytopen: No Hypertension: Yes Immune Disorder: No Implanted Vascular Access Dvce: Yes Kidney Stones: Yes Musculoskeletal: No Neurologic: Yes Psychiatric: Yes Reproductive: No Respiratory: Yes (COPD) Immunizations Current: Yes Migraines: Yes Myocardial Infarction: Yes Radiation Therapy: No Seizures: No Sickle Cell Disease: No Sleep Apnea: No Thyroid Disease: No Ulcer: No Past Surgical History Abdominal Surgery: No Body Medical Devices: STENTS Cardiac Surgery: Yes (7 stents, 2 bypass) Coronary Artery Bypass Graft: Yes Coronary Stent: Yes (X 7) Ear Surgery: No Endocrine Surgery: No Eye Surgery: No Genitourinary Surgery: No Gynecologic Surgery: No Neurologic Surgery: No Oral Surgery: No Thoracic Surgery: Yes (HX of CABG x 2) Other Surgery: Yes (CABG, STENTING) Family History Family Myocardial Infarction: Yes Social History Alcohol Use: No Tobacco Use: Yes (5 per day) Substance Use: Yes (WEED) Allergies-Medications (Allergen,Severity, Reaction): Coded Allergies: ketorolac (Verified Allergy, Severe, RASH, 04/23/18) penicillin G (Verified Allergy, Unknown, Anaphylaxis, 04/23/18) Reported Meds & Prescriptions Reported Meds & Active Scripts Active Zofran Odt (Ondansetron Odt) 4 Mg Tab 4 Mg SL Q6HR PRN Nitrostat SL (Nitroglycerin) 0.4 Mg Subl 0.4 Mg SL DIRECTED PRN 1 tablet under the tongue as needed for chest pain. Repeat every 5 minutes for a total of 3 DOSES or call 911 if NO relief. Atorvastatin (Atorvastatin Calcium) 40 Mg Tab 40 Mg PO HS Reported Aspirin Children's (Aspirin) 81 Mg Chew 81 Mg CHEW DAILY Gabapentin 600 Mg Tab 600 Mg PO TID Xanax (Alprazolam) 1 Mg Tab 1 Mg PO Q8H PRN Oxycodone (Oxycodone HCl) 30 Mg Tab 30 Mg PO Q6HR Review of Systems Except as stated in HPI: all other systems reviewed are Neg Physical Exam Narrative GENERAL: Well-developed well-nourished male in no acute distress SKIN: Warm and dry. Forehead hematoma noted. HEAD: Skin as noted above. Normocephalic. EYES: Pupils equal and round. No scleral icterus. No injection or drainage. ENT: No nasal bleeding or discharge. Mucous membranes pink and moist. NECK: Trachea midline. No JVD. CARDIOVASCULAR: Regular rate and rhythm. No murmur appreciated. RESPIRATORY: No accessory muscle use. Clear to auscultation. Breath sounds equal bilaterally. GASTROINTESTINAL: Abdomen soft, non-tender, nondistended. Hepatic and splenic margins not palpable. MUSCULOSKELETAL: No obvious deformities. No clubbing. No cyanosis. No edema. NEUROLOGICAL: Awake and alert. No obvious cranial nerve deficits. Motor grossly within normal limits. Normal speech. PSYCHIATRIC: Appropriate mood and affect; insight and judgment normal. Data Data Last Documented VS Vital Signs Date Time Temp Pulse Resp B/P (MAP) Pulse Ox O2 Delivery O2 Flow Rate FiO2 04/23/18 21:35 04/23/18 20:29 79 04/23/18 19:15 100 Room Air 2.00 04/23/18 19:00 22 04/23/18 18:52 97.9 Orders Orders Electrocardiogram (04/23/18 19:06) Basic Metabolic Panel (Bmp) (04/23/18 19:06) Ckmb (Isoenzyme) Profile (04/23/18 19:06) Complete Blood Count With Diff (04/23/18 19:06) Magnesium (Mg) (04/23/18 19:06) Prothrombin Time / Inr (Pt) (04/23/18 19:) Act Partial Throm Time (Ptt) (04/23/18 19:06) Troponin I (04/23/18 19:06) Chest, Single Ap (04/23/18 19:06) Ecg Monitoring (04/23/18 19:06) Bilateral Bp Monitoring (04/23/18 19:06) Iv Access Insert/Monitor (04/23/18 19:06) Oximetry (04/23/18 19:06) Oxygen Administration (04/23/18 19:06) Sodium Chloride 0.9% Flush (Ns Flush) (04/23/18 19:15) Nitroglycerin Sl (Nitrostat Sl) (04/23/18 19:15) Ct Cerv Spine W/O Contrast (04/23/18 ) Ct Brain W/O Iv Contrast(Rout) (04/23/18 ) Drug Screen, Random Urine (04/23/18 19:18) Alcohol (Ethanol) (04/23/18 19:18) Morphine Inj (Morphine Inj) (04/23/18 20:00) CKMB (04/23/18 19:20) CKMB% (04/23/18 19:20) Troponin I (04/23/18 22:20) Labs Laboratory Tests Test 6/13/18 19:20 White Blood Count 8.3 TH/MM3 Red Blood Count 5.06 MIL/MM3 Hemoglobin 14.8 GM/DL Hematocrit 44.4 % Mean Corpuscular Volume 87.7 FL Mean Corpuscular Hemoglobin 29.2 PG Mean Corpuscular Hemoglobin Concent 33.3 % Red Cell Distribution Width 15.0 % Platelet Count 210 TH/MM3 Mean Platelet Volume 8.6 FL Neutrophils (%) (Auto) 79.9 % Lymphocytes (%) (Auto) 12.6 % Monocytes (%) (Auto) 5.5 % Eosinophils (%) (Auto) 1.4 % Basophils (%) (Auto) 0.6 % Neutrophils # (Auto) 6.6 TH/MM3 Lymphocytes # (Auto) 1.0 TH/MM3 Monocytes # (Auto) 0.5 TH/MM3 Eosinophils # (Auto) 0.1 TH/MM3 Basophils # (Auto) 0.0 TH/MM3 CBC Comment DIFF FINAL Differential Comment Prothrombin Time 10.2 SEC Prothromb Time International Ratio 1.0 RATIO Activated Partial Thromboplast Time 26.6 SEC Blood Urea Nitrogen 19 MG/DL Creatinine 1.02 MG/DL Random Glucose 99 MG/DL Calcium Level 9.1 MG/DL Magnesium Level 2.1 MG/DL Sodium Level 143 MEQ/L Potassium Level 3.9 MEQ/L Chloride Level 109 MEQ/L Carbon Dioxide Level 22.7 MEQ/L Anion Gap 11 MEQ/L Estimat Glomerular Filtration Rate 74 ML/MIN Total Creatine Kinase 139 U/L Creatine Kinase MB 3.8 NG/ML Troponin I LESS THAN 0.02 NG/ML Ethyl Alcohol Level LESS THAN 3 MG/DL [facility] Medical Decision Making Medical Screen Exam Complete: Yes Emergency Medical Condition: Yes Medical Record Reviewed: Yes Differential Diagnosis Syncope, seizure, arrhythmia, electrolyte abnormality, closed head injury, acute coronary syndrome, pulmonary embolism, aortic dissection Narrative Course Patient was placed on ECG monitoring pulse oximetry. A 12 EKG was obtained. Lab work, chest x-ray, CT the brain and cervical spine ordered. A cervical collar was ordered however the patient refused it. Initially 3 sublingual nitroglycerin ordered however after after the administration of tube nitroglycerin he informed the nurse that he took 2 nitroglycerin prior to arrival so the third was held. Morphine was ordered. The patient's initial lab work and imaging studies have been reviewed and found to be reassuring. He does have significant cardiac disease. He also has multiple instances of syncope of unknown etiology. Initially there is discussion with the hospitalist for potentially admitting him for observation, cardiology evaluation however it was felt that the patient can follow-up as an outpatient with cardiology for loop recorder placement. I did discuss with the telephonic nurse case manager who went pass information on the morning telephonic nurse case manager team in order to try to obtain the patient an appointment with cardiology as an outpatient. Repeat troponin and EKG were ordered for 1020. When I discussed the plan and recommendation with the patient became very upset, his primary concern does not appear to be as syncope or his chest pain, he reports multiple times that he wants to live in an assisted living facility and this is his primary concern. During the conversation the patient continued to be interrupting and eventually ripped off all of his ECG monitoring equipment and decided to leave ama. He understands that repeat cardiac testing was ordered at 1020. I attempted to explain the risks of leaving ama with him. AMA: The risks of leaving against medical advice without further evaluation treatment were discussed with the patient. These risks include cardiac dysfunction, cardiac dysrhythmia, possible heart attack, possible stroke or . The patient indicated understanding of these risks and appeared to have the capacity to make this decision. Diagnosis Primary Impression: Syncope Additional Impression: Left against medical advice Med/Other Pt SpecificInfo: No Change to Meds Disposition: 07 AGAINST MEDICAL ADVICE Condition: Stable Seven Kate Apr 23, 2018 19:13
[2018-04-23 19:15] VITALS: O2SAT 100
[2018-04-23] MEDS ORDERED: SODIUM CHLORIDE 0.9% FLUSH 10 ML FLUSH IVF PRN (19:15)
[2018-04-23] MEDS: NITROGLYCERIN 0.4 MG SL 25 TABS/BTL SL SCH ×3 (19:25→19:39)
[2018-04-23 19:32] VITALS: BP 138/66; PULSE 94
--- NOTE | 2018-04-23 19:34 | RADRPT ---
EXAM DATE: 04/23/2018 7:28 PM EDT AGE/SEX: 62 years / Male INDICATIONS: Chest pain. CLINICAL DATA: This is the patient's initial encounter. Patient reports that signs and symptoms have been present for 3 days and indicates a pain score of 8/10. MEDICAL/SURGICAL HISTORY: Chronic obstructive pulmonary disease. Myocardial infarction. CABG. Coronary artery stent. COMPARISON: [facility] – [place], CHEST SINGLE AP, 04/03/2018. . FINDINGS: A single AP view of the chest demonstrates the lungs to be symmetrically aerated without evidence of mass, infiltrate or effusion. The cardiomediastinal contours are unremarkable. Sternotomy wires. CONCLUSION: No acute disease Electronically signed by: Cr Meza MD 04/23/2018 7:32 PM EDT
[2018-04-23 19:36] VITALS: BP 136/68; PULSE 96
[2018-04-23 19:48] LABS: AUTOMATED NEUTROPHIL # 6.6 TH/MM3 (1.8-7.7); BASOPHIL % 0.6 % (0.0-2.0); EOSINOPHIL # 0.1 TH/MM3 (0-0.4); EOSINOPHIL % 1.4 % (0.0-4.0); HEMATOCRIT 44.4 % (39.0-51.0); HEMOGLOBIN 14.8 GM/DL (13.0-17.0); LYMPH % 12.6 % (9.0-44.0); MEAN CELL VOLUME 87.7 FL (80.0-100.0); MEAN CORPUSCULAR HEMOGLOBIN 29.2 PG (27.0-34.0); MEAN CORPUSCULAR HGB CONC 33.3 % (32.0-36.0); MEAN PLATELET VOLUME 8.6 FL (7.0-11.0); MONO % 5.5 % (0.0-8.0); MONOCYTE # 0.5 TH/MM3 (0-0.9); NEUT % 79.9 % (16.0-70.0); PLATELET COUNT 210 TH/MM3 (150-450); RED BLOOD COUNT 5.06 MIL/MM3 (4.50-5.90); WHITE BLOOD COUNT 8.3 TH/MM3 (4.0-11.0)
[2018-04-23] MEDS ORDERED: MORPHINE SULFATE 4 MG/ML INJ IV PUSH ONE (20:00)
[2018-04-23 20:01] LABS: PROTHROMBIN TIME - PATIENT 10.2 SEC (9.8-11.6)
[2018-04-23 20:13] LABS: BICARBONATE 22.7 MEQ/L (21.0-32.0); BLOOD UREA NITROGEN 19 MG/DL (7-18); CALCIUM 9.1 MG/DL (8.5-10.1); CHLORIDE 109 MEQ/L (98-107); CREATININE 1.02 MG/DL (0.60-1.30); GLOMERULAR FILTRATION RATE 74 ML/MIN (>89); GLUCOSE,RANDOM 99 MG/DL (74-106); MAGNESIUM 2.1 MG/DL (1.5-2.5); SODIUM (NA) 143 MEQ/L (136-145)
[2018-04-23 20:17] LABS: TROPONIN I LESS THAN 0.02 NG/ML (0.02-0.05)
--- NOTE | 2018-04-23 20:18 | RADRPT ---
EXAM DATE: 04/23/2018 8:02 PM EDT AGE/SEX: 62 years / Male INDICATIONS: Cephalgia. CLINICAL DATA: This is the patient's initial encounter. Patient reports that signs and symptoms have been present for 1 day and indicates a pain score of 5/10. MEDICAL/SURGICAL HISTORY: Cardiovascular disease. Hypertension. None. RADIATION DOSE: 32.62 CTDI (mGy) COMPARISON: [facility] [place] BRAIN W/O CONTRAST, 04/03/2018. . TECHNIQUE: CT of the head without contrast. Using automated exposure control and adjustment of the mA and/or kV according to patient size, radiation dose was kept as low as reasonably achievable to ob tain optimal diagnostic quality images. FINDINGS: Cerebrum: The ventricles are normal for age. No evidence of midline shift, mass lesion, hemorrhage or acute infarction. No extraaxial fluid collections are seen. Posterior Fossa: The cerebellum and brainstem are intact. The 4th ventricle is midline. The cerebe llopontine angle is unremarkable. Extracranial: The visualized portion of the orbits is intact. Skull: The calvaria is intact. No evidence of skull fracture. CONCLUSION: 1. Negative CT Head non contrast. Electronically signed by: Cr Meza MD 04/23/2018 8:17 PM EDT
--- NOTE | 2018-04-23 20:21 | RADRPT ---
EXAM DATE: 04/23/2018 8:06 PM EDT AGE/SEX: 62 years / Male INDICATIONS: Neck pain. CLINICAL DATA: This is the patient's initial encounter. Patient reports that signs and symptoms have been present for 1 day and indicates a pain score of 5/10. MEDICAL/SURGICAL HISTORY: Cardiovascular disease. Hypertension. None. RADIATION DOSE: 18.59 CTDI (mGy) COMPARISON: [facility] – [place], CT CERVICAL SPINE W/O CONTRAST, 12/19/2017. . TECHNIQUE: Contiguous axial images were obtained using helical multirow detector technique. The vol umetric data was post-processed with multiplanar reconstruction in oblique axial, sagittal, and coron al planes. Using automated exposure control and adjustment of the mA and/or kV according to patient s ize, radiation dose was kept as low as reasonably achievable to obtain optimal diagnostic quality norbert ges. FINDINGS: Cervical spine alignment is stable. There is no evidence of spondylolisthesis. There is no evidence o f fracture or destructive change. Degenerative changes are present with disc space narrowing most sig nificantly at C5-6 and C7-T1. Posterior facet arthropathy is present at multiple levels. There is no evidence of bony canal compromise. Foramina appear adequate. There is no evidence of paraspinal mass or hematoma. CONCLUSION: Stable degenerative changes. No acute findings. Electronically signed by: Cr Meza MD 04/23/2018 8:20 PM EDT
[2018-04-23 20:29] VITALS: BP 130/74; PULSE 79
--- NOTE | 2018-04-24 18:30 | EKG ---
Date Performed: 04/23/2018 Time Performed: 22:05:49 PTAGE: 62 years EKG: Sinus rhythm POSSIBLE LEFT ATRIAL ENLARGEMENT NONSPECIFIC T-WAVE ABNORMALITY BORDERLINE ECG PREVIOUS TRACING : 04/23/2018 19.04 Since the previous tracing, no significant change noted DOCTOR: Iza Perez Interpretating Date/Time 04/24/2018 18:29:02
--- NOTE | 2018-04-24 18:30 | EKG ---
Date Performed: 04/23/2018 Time Performed: 19:04:41 PTAGE: 62 years EKG: Sinus rhythm POSSIBLE LEFT ATRIAL ENLARGEMENT BORDERLINE ECG PREVIOUS TRACING 04/03/18 @ 20.37 Since the previous tracing, no significant change noted DOCTOR: Iza Perez Interpretating Date/Time 04/24/2018 18:28:50
== END 2018-04-23 21:58 | disposition left against medical advice (07) ==
LOC: NEPC 18:49
DX: R55 Syncope and collapse (principal); R07.9 Chest pain, unspecified; R51 Headache; M54.2 Cervicalgia; R94.31 Abnormal electrocardiogram [ECG] [EKG]; Z53.29 Procedure and treatment not carried out because of patient's decision for other reasons; I10 Essential (primary) hypertension; K21.9 Gastro-esophageal reflux disease without esophagitis; E78.00 Pure hypercholesterolemia, unspecified; F41.8 Other specified anxiety disorders; I25.2 Old myocardial infarction; Z72.0 Tobacco use; Z79.82 Long term (current) use of aspirin; Z87.39 Personal history of other diseases of the musculoskeletal system and connective tissue; Z86.79 Personal history of other diseases of the circulatory system; Z87.09 Personal history of other diseases of the respiratory system; Z87.19 Personal history of other diseases of the digestive system; Z86.69 Personal history of other diseases of the nervous system and sense organs
CPT/HCPCS: 70450; 71045; 72125; 80048; 80307; 82550; 82552; 83735; 84484; 85025; 85610; 85730; 93005; 96374; 99285; J2270

== ENCOUNTER 2018-04-25 19:53 | Emergency (ER) | payer MEDICAID ==
[~2018-04-25] VITALS: Ht 167.6 cm; Wt 75.0 kg
[~2018-04-25 19:53] MED LIST changes: -OXYC30TA PO; -XANA1TAB2 PO
[2018-04-25 20:02] VITALS: BP 135/78; PULSE 95; RESP 18; TEMP 98.2; O2SAT 97
--- NOTE | 2018-04-25 20:21 | PD ---
Data Data Last Documented VS Vital Signs Date Time Temp Pulse Resp B/P (MAP) Pulse Ox O2 Delivery O2 Flow Rate FiO2 04/25/18 20:04 94 04/25/18 20:02 98.2 18 135/78 (97) 97 Orders Orders Apply Cervical Collar (04/25/18 20:20) Electrocardiogram (04/25/18 19:05) MDM Supervised Visit with ZARI: Yes Narrative Course I, Dr. Nguyen, have reviewed the advance practice practitioner's documentation and am in agreement, met with the patient face to face, made the diagnosis, and the medical decision making was done by me. *My assessment and Findings: Patient seen and examined by me in addition to Bryan, this is a 62-year-old male multiple admissions in the past for syncopal episode both in the ER and inpatient, he has had chest pain workup as well including stress testing within the last month. He presents emergency department today for a syncopal episode, he states he does not remember anything leading up to or following the episode. He was just released from the hospital this morning to follow-up with cardiology regarding his loop recorder. The patient states he just feels kind of "foggy" and states he has some numbness tingling his right hand. Neurologically for me he is nonfocal, cranial nerves are all intact, he is 5 out of 5 strength in all 4 extremities and ambulates evenly with a narrow-base gait. He does have a small contusion to the right side of his forehead. He is not excludable by Dixon CT head rules nor Nexus criteria and I highly recommended to him having a CT of his head and C-spine. He was also offered basic labs as part of a workup for his syncope. He states that he would like to go home. I discussed that if we have missed a subtle fracture of the C- spine or an intracranial injury that he could end up disabled permanently or could even . He verbalized understanding and accepted the risks. He is therefore appropriate to sign out AGAINST MEDICAL ADVICE and is done so. Discussed that he is entitled to return to the emergency department any time he should feel a reevaluation is indicated Diagnosis Primary Impression: Syncope Additional Impression: Closed head injury Disposition: 07 AGAINST MEDICAL ADVICE Abe Nguyen MD Apr 25, 2018 20:21
--- NOTE | 2018-04-25 20:42 | PD ---
HPI Chief Complaint: Syncope/Near-Syncope Time Seen by Provider: 20:06 Travel History International Travel<30 days: No Contact w/Intl Traveler<30days: No Traveled to known affect area: No History of Present Illness HPI Patient comes emergency department complaining of syncopal episode occurred shortly prior to arrival. Patient reports he was talking to a friend and the next thing he knew he was here. Patient's been seen in the ER multiple times for similar and had a loop recorder placed today. Patient states that he does not want to be here and did not want to come. Patient only complaint is neck pain and some tingling in his bilateral upper extremities. Denies loss change in bowel or bladder, chest pain, shortness of breath, or change in vision. Denies anything making symptoms better or worse. Denies any radiation of pain. PFSH Past Medical History Hx Anticoagulant Therapy: Yes Arthritis: Yes Asthma: No Autoimmune Disease: No Blood Disorders: No Anxiety: Yes Depression: Yes Heart Rhythm Problems: Yes Cancer: No Cardiac Catheterization: Yes Cardiovascular Problems: Yes High Cholesterol: Yes Chemotherapy: No Chest Pain: Yes Congestive Heart Failure: No COPD: Yes Cerebrovascular Accident: No Coronary Artery Disease: Yes Diabetes: No Diminished Hearing: No Endocrine: No Gastrointestinal Disorders: Yes GERD: Yes Genitourinary: No Headaches: No Hiatal Hernia: Yes Heparin Induced Thrombocytopen: No Hypertension: Yes Immune Disorder: No Implanted Vascular Access Dvce: Yes Kidney Stones: Yes Musculoskeletal: No Neurologic: Yes Psychiatric: Yes Reproductive: No Respiratory: Yes (COPD) Immunizations Current: Yes Migraines: Yes Myocardial Infarction: Yes Radiation Therapy: No Seizures: No Sickle Cell Disease: No Sleep Apnea: No Thyroid Disease: No Ulcer: No Tetanus Vaccination: < 5 Years Influenza Vaccination: Yes Past Surgical History Abdominal Surgery: No Body Medical Devices: STENTS Cardiac Surgery: Yes (7 stents, 2 bypass) Coronary Artery Bypass Graft: Yes Coronary Stent: Yes (X 7) Ear Surgery: No Endocrine Surgery: No Eye Surgery: No Genitourinary Surgery: No Gynecologic Surgery: No Neurologic Surgery: No Oral Surgery: No Thoracic Surgery: Yes (HX of CABG x 2) Other Surgery: Yes (CABG, STENTING) Family History Family Myocardial Infarction: Yes Social History Alcohol Use: No Tobacco Use: Yes (5 per day) Substance Use: Yes (WEED) Allergies-Medications (Allergen,Severity, Reaction): Coded Allergies: ketorolac (Verified Allergy, Severe, RASH, 04/25/18) vancomycin (Verified Allergy, Severe, RASH, 04/25/18) penicillin G (Verified Allergy, Unknown, Anaphylaxis, 04/25/18) Reported Meds & Prescriptions Reported Meds & Active Scripts Active Zofran Odt (Ondansetron Odt) 4 Mg Tab 4 Mg SL Q6HR PRN Nitrostat SL (Nitroglycerin) 0.4 Mg Subl 0.4 Mg SL DIRECTED PRN 1 tablet under the tongue as needed for chest pain. Repeat every 5 minutes for a total of 3 DOSES or call 911 if NO relief. Atorvastatin (Atorvastatin Calcium) 40 Mg Tab 40 Mg PO HS Reported Aspirin Children's (Aspirin) 81 Mg Chew 81 Mg CHEW DAILY Gabapentin 600 Mg Tab 600 Mg PO TID Review of Systems Except as stated in HPI: all other systems reviewed are Neg Physical Exam Narrative GENERAL: Well-developed, well nourished, in no acute distress, and non-ill appearing. SKIN: Focused skin assessment warm and dry. Dressing noted over anterior chest wall is dry clean and intact. HEAD: Atraumatic. Normocephalic. EYES: Pupils equal and round. EOMI. No scleral icterus. No injection or drainage. ENT: No nasal bleeding or discharge. Mucous membranes pink and moist. NECK: Trachea midline. No JVD. Supple. No nuclear rigidity. Patient reports tenderness palpation over midline cervical spine. No crepitus. CARDIOVASCULAR: Regular rate and rhythm. No murmur appreciated. RESPIRATORY: No accessory muscle use. No respiratory distress. Clear to auscultation. Breath sounds equal bilaterally. MUSCULOSKELETAL: No obvious deformities. No clubbing. No cyanosis. No edema. Full range of motion. Shoulder:FROM equal BL with passive flexion, extension, Abduction, Adduction, internal/external rotation, and pronation/supination. Sensation equal BL deltoid muscles. Pulses equal BL distal to injury. Capillary refill less than 2 seconds distal to injury and equal BL. FROM distal to injury and equal BL. Strength distal to injury equal BL. NV intact distal to injury equal BL. Flexion and extension of thumb equal BL. Equal strength and movement with abduction/adductions of BL fingers. 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 NEUROLOGICAL: Awake and alert. No obvious cranial nerve deficits. Motor grossly within normal limits. Normal speech. PSYCHIATRIC: Appropriate mood and affect; insight and judgment normal. Data Data Last Documented VS Vital Signs Date Time Temp Pulse Resp B/P (MAP) Pulse Ox O2 Delivery O2 Flow Rate FiO2 04/25/18 20:04 94 04/25/18 20:02 98.2 18 135/78 (97) 97 Orders Orders Apply Cervical Collar (04/25/18 20:20) Electrocardiogram (04/25/18 19:05) MDM Medical Decision Making Medical Screen Exam Complete: Yes Emergency Medical Condition: Yes Interpretation(s) EKG reviewed by Dr. Nguyen shows sinus rhythm ventricular rate of 94. No STEMI. Differential Diagnosis Fracture, strain, contusion, closed head injury, intracranial hemorrhage Narrative Course Patient was seen and examined. Initially patient was refusing any type of workup however after speaking with Dr. Nguyen patient is agreeable for CAT scan of the head and neck. However after short time patient decided to sign out AMA anyway. I discussed the risks of leaving against medical advice without further evaluation treatment were discussed with the patient. These risks include cardiac dysfunction, cardiac dysrhythmia, possible heart attack, possible stroke or . The patient indicated understanding of these risks and appeared to have the capacity to make this decision. Patient ambulated out of the emergency department without difficulty AGAINST MEDICAL ADVICE. Ethan Abarca Apr 25, 2018 20:42
--- NOTE | 2018-04-26 12:54 | EKG ---
Date Performed: 04/25/2018 Time Performed: 19:05:32 PTAGE: 62 years EKG: Sinus rhythm POSSIBLE LEFT ATRIAL ENLARGEMENT BORDERLINE ECG PREVIOUS TRACING : 04/23/2018 22.05 Since the previous tracing, no significant change noted DOCTOR: Misha Mckinley Interpretating Date/Time 04/26/2018 12:51:20
== END 2018-04-25 21:20 | disposition left against medical advice (07) ==
LOC: NEPE 19:53
DX: R55 Syncope and collapse (principal); M54.2 Cervicalgia; R20.0 Anesthesia of skin; E78.00 Pure hypercholesterolemia, unspecified
CPT/HCPCS: 93005; 99282

== ENCOUNTER 2018-04-25 21:54 | Observation (INO) | payer MEDICAID ==
[~2018-04-25 21:54] MED LIST changes: +OXYC30TA PO; +XANA1TAB2 PO
[2018-04-25 21:57] VITALS: BP 121/80; PULSE 89; RESP 16; TEMP 98.8; O2SAT 100
[2018-04-25] MEDS ORDERED: oxyCODONE/ACETAMINOPHEN 5 MG/325 MG TAB PO ONE (23:00)
[2018-04-26 00:30] LABS: BILIRUBIN, URINE NEG (NEG); BLOOD, URINE NEG (NEG); CALCIUM OXALATE CRYSTALS,URINE MOD /hpf; GLUCOSE,URINE NEG (NEG); HYALINE CAST, URINE 43 /lpf (RARE); KETONE, URINE NEG (NEG); MUCUS URINE FEW /lpf (OCC); NITRITE,URINE NEG (NEG); URINE COLOR Amber (YELLW/STRAW); URINE LEUKOCYTE ESTERASE TRACE (NEG)
--- NOTE | 2018-04-26 01:02 | RADRPT ---
EXAM DATE: 04/26/2018 12:43 AM EDT AGE/SEX: 62 years / Male INDICATIONS: Altered mental status. Possible fall. CLINICAL DATA: This is the patient's initial encounter. Patient reports that signs and symptoms have been present for 1 day and indicates a pain score of 5/10. MEDICAL/SURGICAL HISTORY: Hypertension. . RADIATION DOSE: 56.35 CTDI (mGy) COMPARISON: [facility] – [place], CT BRAIN W/O CONTRAST, 04/23/2018. . TECHNIQUE: CT of the head without contrast. Using automated exposure control and adjustment of the mA and/or kV according to patient size, radiation dose was kept as low as reasonably achievable to ob tain optimal diagnostic quality images. FINDINGS: Cerebrum: The ventricles are normal for age. No evidence of midline shift, mass lesion, hemorrhage or acute infarction. No extraaxial fluid collections are seen. Posterior Fossa: The cerebellum and brainstem are intact. The 4th ventricle is midline. The cerebe llopontine angle is unremarkable. Extracranial: The visualized portion of the orbits is intact. Skull: The calvaria is intact. No evidence of skull fracture. CONCLUSION: 1. No acute intracranial abnormality Electronically signed by: Darren Mueller MD 04/26/2018 1:01 AM EDT
[2018-04-26] MEDS ORDERED: SODIUM CHLOR 0.9% 1000 ML INJ 1,000 ML IV SCH (03:22)
--- NOTE | 2018-04-26 03:25 | PD ---
HPI Chief Complaint: Altered Mental Status Time Seen by Provider: 22:27 Travel History International Travel<30 days: No Contact w/Intl Traveler<30days: No Traveled to known affect area: No History of Present Illness HPI 62-year-old male presents the emergency department with chief complaint of syncope. Patient has had multiple episodes of syncope and has been evaluated he was most recently seen 1 day ago. He follows with bus starter and a loop recorder device was recommended and installed earlier today before his arrival. He was subsequently discharged and attempted to leave the hospital grounds. He had another episode of syncope in the [facility] and was found by security. He left AMA. [facility] he had another episode of syncope and was brought to the ER by EVAC. FORMERLY [facility], [facility] Past Medical History Hx Anticoagulant Therapy: Yes Arthritis: Yes Asthma: No Autoimmune Disease: No Blood Disorders: No Anxiety: Yes Depression: Yes Heart Rhythm Problems: Yes Cancer: No Cardiac Catheterization: Yes Cardiovascular Problems: Yes High Cholesterol: Yes Chemotherapy: No Chest Pain: Yes Congestive Heart Failure: No COPD: Yes Cerebrovascular Accident: No Coronary Artery Disease: Yes Diabetes: No Diminished Hearing: No Endocrine: No Gastrointestinal Disorders: Yes GERD: Yes Genitourinary: No Headaches: No Hiatal Hernia: Yes Heparin Induced Thrombocytopen: No Hypertension: Yes Immune Disorder: No Implanted Vascular Access Dvce: Yes Kidney Stones: Yes Musculoskeletal: No Neurologic: Yes Psychiatric: Yes Reproductive: No Respiratory: Yes (COPD) Immunizations Current: Yes Migraines: Yes Myocardial Infarction: Yes Radiation Therapy: No Seizures: No Sickle Cell Disease: No Sleep Apnea: No Thyroid Disease: No Ulcer: No Past Surgical History Abdominal Surgery: No Body Medical Devices: STENTS Cardiac Surgery: Yes (7 stents, 2 bypass) Coronary Artery Bypass Graft: Yes Coronary Stent: Yes (X 7) Ear Surgery: No Endocrine Surgery: No Eye Surgery: No Genitourinary Surgery: No Gynecologic Surgery: No Neurologic Surgery: No Oral Surgery: No Thoracic Surgery: Yes (HX of CABG x 2) Other Surgery: Yes (CABG, STENTING) Family History Family Myocardial Infarction: Yes Social History Alcohol Use: No Tobacco Use: Yes (5 per day) Substance Use: Yes (WEED) Allergies-Medications (Allergen,Severity, Reaction): Coded Allergies: ketorolac (Verified Allergy, Severe, RASH, 04/25/18) vancomycin (Verified Allergy, Severe, RASH, 04/25/18) penicillin G (Verified Allergy, Unknown, Anaphylaxis, 04/25/18) Reported Meds & Prescriptions Reported Meds & Active Scripts Active Nitrostat SL (Nitroglycerin) 0.4 Mg Subl 0.4 Mg SL DIRECTED PRN 1 tablet under the tongue as needed for chest pain. Repeat every 5 minutes for a total of 3 DOSES or call 911 if NO relief. Atorvastatin (Atorvastatin Calcium) 40 Mg Tab 40 Mg PO HS Reported Aspirin Children's (Aspirin) 81 Mg Chew 81 Mg CHEW DAILY Gabapentin 600 Mg Tab 600 Mg PO TID Review of Systems Except as stated in HPI: all other systems reviewed are Neg Cardiovascular: Positive: Syncope Physical Exam Narrative GENERAL: 62-year-old male in no distress SKIN: Focused skin assessment warm/dry. HEAD: Hematoma left forehead, older healing hematoma left forehead. EYES: Pupils equal and round. No scleral icterus. No injection or drainage. ENT: No nasal bleeding or discharge. Mucous membranes pink and moist. NECK: Trachea midline. No JVD. CARDIOVASCULAR: Regular rate and rhythm. No murmur appreciated. RESPIRATORY: No accessory muscle use. Clear to auscultation. Breath sounds equal bilaterally. GASTROINTESTINAL: Abdomen soft, non-tender, nondistended. Hepatic and splenic margins not palpable. MUSCULOSKELETAL: No obvious deformities. No clubbing. No cyanosis. No edema. NEUROLOGICAL: Awake and alert. No obvious cranial nerve deficits. Motor grossly within normal limits. Normal speech. Data Data Last Documented VS Vital Signs Date Time Temp Pulse Resp B/P (MAP) Pulse Ox O2 Delivery O2 Flow Rate FiO2 04/25/18 21:57 98.8 89 16 121/80 (94) 100 Orders Orders Electrocardiogram (04/25/18 ) Urinalysis - C+S If Indicated (04/25/18 22:48) Drug Screen, Random Urine (04/25/18 22:48) Oxycodone-Acetamin 5-325 Mg (Percocet (04/25/18 23:00) Ct Brain W/O Iv Contrast(Rout) (04/26/18 ) ^ Aicd (04/26/18 03:22) Place In Observation (04/26/18 ) Vital Signs (Adult) Q4H (04/26/18 03:22) Activity Oob With Assistance (04/26/18 03:22) Paving And Surfacing Labourer / Telemetry .CONTINUOUS (04/26/18 03:22) Intake + Output PONCE.QSHIFT (04/26/18 03:22) Diet Heart Healthy (04/26/18 Breakfast) Sodium Chlor 0.9% 1000 Ml Inj (Ns 1000 M (04/26/18 03:22) Sodium Chloride 0.9% Flush (Ns Flush) (04/26/18 03:30) Sodium Chloride 0.9% Flush (Ns Flush) (04/26/18 09:00) Comprehensive Metabolic Panel (04/26/18 06:00) Complete Blood Count With Diff (04/26/18 06:00) Troponin I (04/26/18 06:00) Troponin I (04/26/18 12:00) Pt Request For Service (04/26/18 03:22) Scd Bilateral/Knee High PONCE.BID (04/26/18 03:22) Manas Bilateral/Knee High PONCE.QSHIFT (04/26/18 03:25) Acetaminophen (Tylenol) (04/26/18 03:30) Docusate Sodium-Senna (Melisas-Colace) (04/26/18 09:00) Magnesium Hydroxide Liq (Milk Of Magnesi (04/26/18 03:30) Sennosides (Senokot) (04/26/18 03:30) Bisacodyl Supp (Dulcolax Supp) (04/26/18 03:30) Lactulose Liq (Lactulose Liq) (04/26/18 03:30) Atorvastatin (Lipitor) (04/26/18 21:00) Consult Cardiology (04/26/18 ) Admit Order (Ed Use Only) (04/26/18 ) Labs Laboratory Tests Test 04/25/18 23:50 Urine Color Vita Urine Turbidity CLOUDY Urine pH 5.0 Urine Specific [place] 1.029 Urine Protein NEG mg/dL Urine Glucose (UA) NEG mg/dL Urine Ketones NEG mg/dL Urine Occult Blood NEG Urine Nitrite NEG Urine Bilirubin NEG Urine Urobilinogen 2.0 mg/dL Urine Leukocyte Esterase TRACE Urine WBC 1 /hpf Urine Calcium Oxalate Crystals MOD /hpf Urine Hyaline Casts 43 /lpf Urine Granular Casts 13 /lpf Urine Mucus FEW /lpf Microscopic Urinalysis Comment CULT NOT INDICATED Urine Opiates Screen NEG Urine Barbiturates Screen NEG Urine Amphetamines Screen NEG Urine Benzodiazepines Screen POS Urine Cocaine Screen NEG Urine Cannabinoids Screen NEG MDM Medical Decision Making Medical Screen Exam Complete: Yes Emergency Medical Condition: Yes Differential Diagnosis Syncope Narrative Course Patient was seen and evaluated in the emergency department. Head CT was negative. He is placed in observation so that he can be watched and his loop recorder can be interrogated. Patient has agreed to stay and not sign out AMA Diagnosis Primary Impression: Syncope Qualified Codes: R55 - Syncope and collapse Admitting Information Admitting Physician Requests: Observation Canelo Rooney DO Apr 26, 2018 03:25
[2018-04-26] MEDS ORDERED: SENNOSIDES 8.6 MG TAB PO PRN (03:30)
[2018-04-26] MEDS ORDERED: SODIUM CHLORIDE 0.9% FLUSH 10 ML FLUSH IV FLUSH PRN (03:30)
[2018-04-26] MEDS ORDERED: ACETAMINOPHEN 325 MG TAB PO PRN (03:30)
[2018-04-26] MEDS ORDERED: BISACODYL 10 MG SUPP RECTAL PRN (03:30)
[2018-04-26] MEDS ORDERED: MAGNESIUM HYDROXIDE SUSP 30 ML CUP PO PRN (03:30)
[2018-04-26] MEDS ORDERED: LACTULOSE SYRUP 20 GM/30 ML CUP PO PRN (03:30)
[2018-04-26] MEDS ORDERED: ACETAMINOPHEN/HYDROcodone 325 MG/5 MG TAB PO PRN (03:45)
[2018-04-26] MEDS ORDERED: ALPRAZolam 0.25 MG TAB PO PRN (03:45)
[2018-04-26] MEDS ORDERED: ACETAMINOPHEN/HYDROcodone 325 MG/10 MG TAB PO PRN (03:45)
--- NOTE | 2018-04-26 03:49 | HHI.HP ---
[facility]Staff Admission Diagnosis Syncope Diagnoses: (1) Syncope Diagnosis: Principal Travel History International Travel<30 Days: No Contact w/Intl Traveler <30 Da: No Traveled to Known Affected Are: No History of Present Illness This is a 62-year-old male with a PMH of Anxiety, Chronic Pain, COPD and Recurrent Syncope who was brought to the ER after Security found him outside after syncopal event. Recent admit 04/24/18 for syncope, s/p eval by Dr. Umanzor w/ recommendation for Loop Recorder which was placed by Dr. Hawkins on , pt then LEFT AMA. Shortly afterwards was with a friend when he had sudden syncopal event and EMS was called, had eval in the ER last night on , however LEFT AMA, found by Security and brought back in. Initially noted to be confused, however now AA&Ox4. Notes no chest pain or SOB prior to syncope , however states he usually gets palpitations and diaphoresis prior to syncopal events. No seizure activity. Pt states he is willing to stay for further work up. BP 121/80, HR 89, O2 sat 100% on RA, Afebrile. CT Head with no acute findings. Review of Systems Except as stated in HPI: all other systems reviewed are Neg ROS: 14 point review of systems otherwise negative. Past Family Social History Past Medical History PMH: Anxiety, Chronic Pain, COPD and Recurrent Syncope Past Surgical History PAST SURGICAL HISTORY: Cardiac Stent, CABG, Loop Recorder Allergies: Coded Allergies: ketorolac (Verified Allergy, Severe, RASH, 04/25/18) vancomycin (Verified Allergy, Severe, RASH, 04/25/18) penicillin G (Verified Allergy, Unknown, Anaphylaxis, 04/25/18) Family History PAST FAMILY HISTORY: Reviewed, positive for CAD. Social History PAST SOCIAL HISTORY: Negative for alcohol. Positive for tobacco. +Marijuana. Physical Exam Vital Signs Vital Signs Date Time Temp Pulse Resp B/P (MAP) Pulse Ox O2 Delivery O2 Flow Rate FiO2 04/25/18 21:57 98.8 89 16 121/80 (94) 100 Physical Exam PE: GENERAL: Pleasant middle-aged white male in no acute distress. Left forehead hematoma, previous right forehead hematoma. HEENT: PERRLA, EOMI. No scleral icterus or conjunctival pallor. No lid lag or facial droop. CARDIOVASCULAR: Regular rate and rhythm. No obvious murmurs to auscultation. No chest tenderness to palpation. RESPIRATORY: No obvious rhonchi or wheezing. Clear to auscultation. Breath sounds equal bilaterally. GASTROINTESTINAL: Abdomen soft, non-tender, nondistended. BS normal. MUSCULOSKELETAL: Extremities without clubbing, cyanosis, or edema. No obvious deformities. NEUROLOGICAL: Awake, alert and oriented x4. No focal neurologic deficits. Moving both upper and lower extremities spontaneously. Laboratory Laboratory Tests Test 04/25/18 23:50 Urine Color Vita Urine Turbidity CLOUDY Urine pH 5.0 Urine Specific [place] 1.029 Urine Protein NEG Urine Glucose (UA) NEG Urine Ketones NEG Urine Occult Blood NEG Urine Nitrite NEG Urine Bilirubin NEG Urine Urobilinogen 2.0 Urine Leukocyte Esterase TRACE Urine WBC 1 Urine Calcium Oxalate Crystals MOD Urine Hyaline Casts 43 Urine Granular Casts 13 Urine Mucus FEW Microscopic Urinalysis Comment CULT NOT INDICATED Urine Opiates Screen NEG Urine Barbiturates Screen NEG Urine Amphetamines Screen NEG Urine Benzodiazepines Screen POS Urine Cocaine Screen NEG Urine Cannabinoids Screen NEG Caprini VTE Risk Assessment Caprini VTE Risk Assessment: No/Low Risk (score <= 1) Caprini Risk Assessment Model Point Value = 1 Point Value = 2 Point Value = 3 Point Value = 5 Age 41-60 Minor surgery BMI > 25 kg/m2 Swollen legs Varicose veins or History of unexplained or recurrent spontaneous Oral contraceptives or hormone replacement Sepsis (< 1 month) Serious lung disease, including pneumonia (< 1 month) Abnormal pulmonary function Acute myocardial infarction Congestive heart failure (< 1 month) History of inflammatory bowel disease Medical patient at bed rest Age 61-74 Arthroscopic surgery Major open surgery (> 45 min) Laparoscopic surgery (> 45 min) Malignancy Confined to bed (> 72 hours) Immobilizing plaster cast Central venous access Age >= 75 History of VTE Family history of VTE Factor V Leiden Prothrombin [id number] Lupus anticoagulant Anticardiolipin antibodies Elevated serum homocysteine Heparin-induced thrombocytopenia Other congenital or acquired thrombophilia Stroke (< 1 month) Elective arthroplasty Hip, pelvis, or leg fracture Acute spinal cord injury (< 1 month) Prophylaxis Regimen Total Risk Factor Score Risk Level Prophylaxis Regimen 0-1 Low Early ambulation 2 Moderate Order ONE of the following: *Sequential Compression Device (SCD) *Heparin 5000 units SQ BID 3-4 Higher Order ONE of the following medications: *Heparin 5000 units SQ TID *Enoxaparin/Lovenox 40 mg SQ daily (WT < 150 kg, CrCl > 30 mL/min) *Enoxaparin/Lovenox 30 mg SQ daily (WT < 150 kg, CrCl > 10-29 mL/min) *Enoxaparin/Lovenox 30 mg SQ BID (WT < 150 kg, CrCl > 30 mL/min) AND/OR *Sequential Compression Device (SCD) 5 or more Highest Order ONE of the following medications: *Heparin 5000 units SQ TID (Preferred with Epidurals) *Enoxaparin/Lovenox 40 mg SQ daily (WT < 150 kg, CrCl > 30 mL/min) *Enoxaparin/Lovenox 30 mg SQ daily (WT < 150 kg, CrCl > 10-29 mL/min) *Enoxaparin/Lovenox 30 mg SQ BID (WT < 150 kg, CrCl > 30 mL/min) AND *Sequential Compression Device (SCD) Assessment and Plan Problem List: (1) Syncope ICD Code: R55 - Syncope and collapse Status: Acute Assessment and Plan A/P: 1. Syncope: Recurrent. Multiple ER presentations after being brought in for syncopal events, recent admit 04/24/18 for same, s/p eval by Dr. Umanzor and Loop Recorder implantation by Dr. Hawkins on 04/25/18. Notes episodes of palpitations and diaphoresis prior to syncope. Admit for Observation, telemetry , interrogate device ([employer]), Check cardiac enzymes, repeat labs, Consult Cardiology for further evaluation/intervention as needed. 2. DVT Prophylaxis: SCD/Teds 3. Social work for d/c planning as needed. 4. Case discussed w/ ER physician at length, labs/records/imaging reviewed by me. Problem Qualifiers (1) Syncope: Qualified Codes: R55 - Syncope and collapse Supriya Lopez MD Apr 26, 2018 03:49
[2018-04-26 05:00] VITALS: PULSE 72
[2018-04-26 05:18] VITALS: BP 126/70; PULSE 73; RESP 15; TEMP 97.9; O2SAT 96
[2018-04-26 07:10] LABS: AUTOMATED NEUTROPHIL # 5.3 TH/MM3 (1.8-7.7); BASOPHIL % 0.4 % (0.0-2.0); EOSINOPHIL # 0.3 TH/MM3 (0-0.4); EOSINOPHIL % 3.4 % (0.0-4.0); HEMATOCRIT 41.3 % (39.0-51.0); HEMOGLOBIN 13.9 GM/DL (13.0-17.0); LYMPH % 16.7 % (9.0-44.0); LYMPHOCYTE # 1.2 TH/MM3 (1.0-4.8); MEAN CORPUSCULAR HEMOGLOBIN 29.3 PG (27.0-34.0); MEAN CORPUSCULAR HGB CONC 33.7 % (32.0-36.0); MEAN PLATELET VOLUME 8.5 FL (7.0-11.0); MONO % 7.7 % (0.0-8.0); MONOCYTE # 0.6 TH/MM3 (0-0.9); NEUT % 71.8 % (16.0-70.0); PLATELET COUNT 198 TH/MM3 (150-450); RED BLOOD COUNT 4.75 MIL/MM3 (4.50-5.90); RED CELL DISTRIBUTION WIDTH 14.6 % (11.6-17.2); WHITE BLOOD COUNT 7.4 TH/MM3 (4.0-11.0)
[2018-04-26 07:34] LABS: ALBUMIN 3.4 GM/DL (3.4-5.0); AST (GOT) 15 U/L (15-37); BICARBONATE 25.4 MEQ/L (21.0-32.0); BLOOD UREA NITROGEN 20 MG/DL (7-18); CALCIUM 8.5 MG/DL (8.5-10.1); CHLORIDE 108 MEQ/L (98-107); GLOMERULAR FILTRATION RATE 68 ML/MIN (>89); GLUCOSE,RANDOM 96 MG/DL (74-106); SODIUM (NA) 142 MEQ/L (136-145)
[2018-04-26 07:36] LABS: ALT (GPT) 29 U/L (12-78)
[2018-04-26 07:40] LABS: ALKALINE PHOSPHATASE 69 U/L (45-117); TOTAL BILIRUBIN ADULT 0.4 MG/DL (0.2-1.0); TOTAL PROTEIN 6.4 GM/DL (6.4-8.2); TROPONIN I LESS THAN 0.02 NG/ML (0.02-0.05)
[2018-04-26 08:00] VITALS: BP 139/77; PULSE 77; RESP 21; TEMP 97.4; O2SAT 97
--- NOTE | 2018-04-26 08:56 | PD.CONS ---
HPI Consult Requested By Dr Lopez Reason for Consult Recurrent syncope Primary Care Physician Non-Staff Orthopedic Shoe Fitter: Dr. Story History of Present Illness Patient is a 62-year-old gentleman with a history of dyslipidemia, CAD s/p 2vCABG 2011, multiple PCI's with last in 11/2016 with distal LM stent, recurrent syncope, COPD, chronic pain who was admitted yesterday to the ER again with recurrent syncope. He underwent loop recorder placement by Dr. Hawkins and then was discharged. He had another syncopal event, left AMA, had another syncopal event and is here now for reevaluation. He has multiple bruises including on his forehead and left arm. He complains of diffuse musculoskeletal pains but denied any cardiopulmonary symptoms of palpitations, lightheadedness, chest pain or dyspnea. He cannot recall the events surrounding the syncope. Last he recalls, he was talking to a woman while standing up and next thing he remembered he was here in the ER again. He has no complaints currently other than diffuse pains. I am told that the [employer] congressional representative was contacted to perform device interrogation which is yet to be done. EKG reveals sinus rhythm at 94 bpm possible left atrial enlargement and nonspecific T-wave inversion in aVL and V2. Basic laboratories are normal including negative troponin. CT of the head is negative for acute pathology. Review of Systems 10 point review of systems is negative other than noted in the HPI. Past Family Social History Allergies: Coded Allergies: ketorolac (Verified Allergy, Severe, RASH, 04/25/18) vancomycin (Verified Allergy, Severe, RASH, 04/25/18) penicillin G (Verified Allergy, Unknown, Anaphylaxis, 04/25/18) Past Medical History Recurrent syncope CAD 2v CABG 2011 Multiple coronary stents placed, last November 2016 distal left main Dyslipidemia COPD Chronic pain Past Surgical History CABG 2012 Coronary stent placement Reported Medications Reported Meds & Active Scripts Active Zofran Odt (Ondansetron Odt) 4 Mg Tab 4 Mg SL Q6HR PRN Nitrostat SL (Nitroglycerin) 0.4 Mg Subl 0.4 Mg SL DIRECTED PRN 1 tablet under the tongue as needed for chest pain. Repeat every 5 minutes for a total of 3 DOSES or call 911 if NO relief. Atorvastatin (Atorvastatin Calcium) 40 Mg Tab 40 Mg PO HS Reported Aspirin Children's (Aspirin) 81 Mg Chew 81 Mg CHEW DAILY Gabapentin 600 Mg Tab 600 Mg PO TID Active Ordered Medications Current Medications Medications (Trade) Dose Ordered Sig/Libby Route Start Time Stop Time Status Last Admin Sodium Chloride 1,000 ml @ 100 mls/hr Q10H IV 04/26/18 03:22 04/26/18 06:05 (NS Flush) 2 ml UNSCH PRN IV FLUSH 04/26/18 03:30 (NS Flush) 2 ml BID IV FLUSH 04/26/18 09:00 (Tylenol) 650 mg Q6H PRN PO 04/26/18 03:30 (Melissa-Colace) 1 tab BID PO 04/26/18 09:00 (Milk Of Magnesia Liq) 30 ml Q12H PRN PO 04/26/18 03:30 (Senokot) 17.2 mg Q12H PRN PO 04/26/18 03:30 (Dulcolax Supp) 10 mg DAILY PRN RECTAL 04/26/18 03:30 (Lactulose Liq) 30 ml DAILY PRN PO 04/26/18 03:30 (Lipitor) 40 mg HS PO 04/26/18 21:00 (Xanax) 0.25 mg Q8H PRN PO 04/26/18 03:45 04/26/18 05:33 ([place] 5-325 Mg) 1 tab Q4H PRN PO 04/26/18 03:45 04/26/18 05:33 ([place] 10-325 Mg) 1 tab Q4H PRN PO 04/26/18 03:45 (Neurontin) 600 mg TID PO 04/26/18 09:00 Family History Noncontributory No sudden cardiac Social History 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 In no acute distress. NECK: No carotid bruits. No JVD. CARDIOVASCULAR: Regular rate and rhythm. No murmur appreciated. RESPIRATORY: No accessory muscle use. Clear to auscultation. Breath sounds equal bilaterally. MUSCULOSKELETAL: No clubbing or cyanosis. No edema. NEUROLOGICAL: Awake and alert. Normal speech. Integument: Bruise overlying the RIGHTforehead and left elbow Laboratory Laboratory Tests Test 04/25/18 23:50 04/26/18 06:50 Urine Color Vita Urine Turbidity CLOUDY Urine pH 5.0 Urine Specific [place] 1.029 Urine Protein NEG Urine Glucose (UA) NEG Urine Ketones NEG Urine Occult Blood NEG Urine Nitrite NEG Urine Bilirubin NEG Urine Urobilinogen 2.0 Urine Leukocyte Esterase TRACE Urine WBC 1 Urine Calcium Oxalate Crystals MOD Urine Hyaline Casts 43 Urine Granular Casts 13 Urine Mucus FEW Microscopic Urinalysis Comment CULT NOT INDICATED Urine Opiates Screen NEG Urine Barbiturates Screen NEG Urine Amphetamines Screen NEG Urine Benzodiazepines Screen POS Urine Cocaine Screen NEG Urine Cannabinoids Screen NEG White Blood Count 7.4 Red Blood Count 4.75 Hemoglobin 13.9 Hematocrit 41.3 Mean Corpuscular Volume 87.0 Mean Corpuscular Hemoglobin 29.3 Mean Corpuscular Hemoglobin Concent 33.7 Red Cell Distribution Width 14.6 Platelet Count 198 Mean Platelet Volume 8.5 Neutrophils (%) (Auto) 71.8 Lymphocytes (%) (Auto) 16.7 Monocytes (%) (Auto) 7.7 Eosinophils (%) (Auto) 3.4 Basophils (%) (Auto) 0.4 Neutrophils # (Auto) 5.3 Lymphocytes # (Auto) 1.2 Monocytes # (Auto) 0.6 Eosinophils # (Auto) 0.3 Basophils # (Auto) 0.0 CBC Comment DIFF FINAL Differential Comment Blood Urea Nitrogen 20 Creatinine 1.10 Random Glucose 96 Total Protein 6.4 Albumin 3.4 Calcium Level 8.5 Alkaline Phosphatase 69 Aspartate Amino Transf (AST/SGOT) 15 Alanine Aminotransferase (ALT/SGPT) 29 Total Bilirubin 0.4 Sodium Level 142 Potassium Level 3.7 Chloride Level 108 Carbon Dioxide Level 25.4 Anion Gap 9 Estimat Glomerular Filtration Rate 68 Troponin I LESS THAN 0.02 Result Diagram: 04/26/18 0650 04/26/18 0650 Imaging Last Impressions Head CT 04/26/18 0000 Signed Impressions: CONCLUSION: 1. No acute intracranial abnormality Assessment and Plan Assessment and Plan 62-year-old gentleman with COPD, active tobacco use, CAD and recurrent syncope presents again for another syncopal episode. He underwent cardiac loop recorder placement yesterday with a LINQ. He has not had any arrhythmia on telemetry as of yet. EKG is nonischemic and cardiac biomarkers are negative. Doubt related to obstructive coronary artery disease. Arrhythmogenic etiology of syncope will be determined once his device is interrogated. If this is identified then he will need to be scheduled for permanent pacemaker placement. Further recommendations following device interrogation. Continue current home medications including aspirin 81 mg daily, atorvastatin 40 mg daily. Kenji Kang DO Apr 26, 2018 08:56
[2018-04-26] MEDS ORDERED: GABAPENTIN 300 MG CAP PO SCH (09:00)
[2018-04-26] MEDS ORDERED: DOCUSATE SODIUM 50 MG/SENNA 8.6 MG TAB PO SCH (09:00)
[2018-04-26] MEDS ORDERED: SODIUM CHLORIDE 0.9% FLUSH 10 ML FLUSH IV FLUSH SCH (09:00)
[2018-04-26 11:00] VITALS: BP 158/72; PULSE 76; RESP 18; O2SAT 99
--- NOTE | 2018-04-26 11:01 | HHI.PR ---
Subjective Remarks Follow-up for syncope. The patient has been threatening to leave AMA throughout the morning. Paperwork was printed and the patient got dressed, removed his telemetry, and was about to leave however then a fall alert was called to his room. The patient is seen immediately after fall alert called. Per RN, the patient was found sitting on the floor claiming that he fell. Patient initially unwilling to speak with me and did not have any complaints, however then later stated he had neck pain. Offered neck x-ray, however the patient then rubs his neck, performs full active ROM of neck, and states "no its fine". The patient still adamantly wanting to leave AMA. Vitals were checked and stable. He is AAO 4. Of note, patient was seen by me ambulating to the bathroom earlier today without any difficulty. His loop recorder was interrogated with no findings. RN discussed with cardiology Dr. Kang who cleared for discharge. Objective Vitals Vital Signs Date Time Temp Pulse Resp B/P (MAP) Pulse Ox O2 Delivery O2 Flow Rate FiO2 04/26/18 08:00 97.4 77 21 139/77 (97) 97 04/26/18 05:18 97.9 73 15 126/70 (88) 96 04/26/18 05:00 72 04/25/18 21:57 98.8 89 16 121/80 (94) 100 Result Diagram: 04/26/18 0650 04/26/18 0650 Imaging Last Impressions Head CT 04/26/18 0000 Signed Impressions: CONCLUSION: 1. No acute intracranial abnormality Objective Remarks GENERAL: Well-nourished, well-developed middle-aged male patient in [facility]. SKIN: Warm and dry. No rash. HEENT: Normocephalic. Left forehead hematoma, with healing abrasions on right forehead. Pupils equal and round. Mucous membranes pink and moist. NECK: Supple. Trachea midline. Cervical spine nontender to palpation. CARDIOVASCULAR: Regular rate and rhythm. No murmur appreciated. RESPIRATORY: No accessory muscle use. Clear to auscultation. Breath sounds equal bilaterally. GASTROINTESTINAL: Abdomen soft, non-tender, nondistended. Normoactive bowel sounds x4. MUSCULOSKELETAL: No obvious deformities. Extremities without clubbing, cyanosis , or edema. NEUROLOGICAL: Awake and alert. No obvious cranial nerve deficits. Motor grossly within normal limits. Moving all extremities spontaneously. Normal speech. Medications and IVs Current Medications Medications (Trade) Dose Ordered Sig/Libby Route Start Time Stop Time Status Last Admin Sodium Chloride 1,000 ml @ 100 mls/hr Q10H IV 04/26/18 03:22 04/26/18 06:05 (NS Flush) 2 ml UNSCH PRN IV FLUSH 04/26/18 03:30 (NS Flush) 2 ml BID IV FLUSH 04/26/18 09:00 04/26/18 11:16 (Tylenol) 650 mg Q6H PRN PO 04/26/18 03:30 (Melissa-Colace) 1 tab BID PO 04/26/18 09:00 04/26/18 11:15 (Milk Of Magnesia Liq) 30 ml Q12H PRN PO 04/26/18 03:30 (Senokot) 17.2 mg Q12H PRN PO 04/26/18 03:30 (Dulcolax Supp) 10 mg DAILY PRN RECTAL 04/26/18 03:30 (Lactulose Liq) 30 ml DAILY PRN PO 04/26/18 03:30 (Lipitor) 40 mg HS PO 04/26/18 21:00 (Neurontin) 600 mg TID PO 04/26/18 09:00 04/26/18 11:15 A/P Problem List: (1) Syncope ICD Code: R55 - Syncope and collapse Status: Acute Assessment and Plan 62-year-old male with history of CAD s/p CABG and stents, recurrent syncope, COPD, hyperlipidemia, malingering, presents after another reported syncopal episode. Syncope: Recurrent. Multiple ER presentations after being brought in for syncopal events. -recent admit 04/24/18 for same, s/p eval by Dr. Umanzor and Loop Recorder implantation by Dr. Hawkins on 04/25/18. -returned to ER 04/25 after discharged, then left AMA from ER -returned again to ER 04/25, admitted to observation -monitor on telemetry, no acute findings -Interrogated device (Hotelementstronic), no arrhythmias identified -Cardiology consulted, cleared for discharge Fall: unwitnessed. Occurred after patient signed to leave AMA and removed his telemetry. -Patient evaluated immediately after fall alert called, Vital signs stable -Patient initially complained of neck pain, then later stated "no it's fine" , nontender on exam, full active ROM, no evidence of trauma; patient declined imaging studies and signed out AMA DVT Prophylaxis: SCD/Teds Discharge Planning 1100hrs: Advised by RN, patient requesting to sign out AMA. 1200hrs: Patient did not leave the hospital after signing out AMA, now agrees to stay and is resting in bed. The patient has been cleared by cardiology. EMR reviewed, patient has had an extensive work up for these syncopal episodes. Discussed with the patient that he may benefit from evaluation at tertiary care center such as [facility]. Also advised patient that he is not allowed to drive, he states he does not drive anyway. Will check cervical spine xray, and if negative , the patient will be discharged. Again, strongly suspect malingering and/or drug seeking behavior in this patient. Patient tells me during exam, "I'm just going to go to the other hospital, you all aren't doing anything for my pain" but then he declines to further elaborate on where his pain is located and becomes upset. 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 Discharge patient to home Condition on discharge: Stable Heart Healthy Diet as tolerated Ad Jimena activity Rx written: no new meds Follow-up with primary care physician an cardiology Problem Qualifiers (1) Syncope: Qualified Codes: R55 - Syncope and collapse Mellissa Asif PA-C Apr 26, 2018 11:01
[2018-04-26 12:00] VITALS: BP 125/66; PULSE 74; RESP 22; TEMP 98; O2SAT 100
--- NOTE | 2018-04-26 12:12 | HHI.DCPOC ---
Discharge Care Plan Diagnosis: (1) Recurrent syncope Goals to Promote Your Health * To prevent worsening of your condition and complications * To maintain your health at the optimal level Directions to Meet Your Goals Take your medications as prescribed Follow your dietary instruction Follow activity as directed Keep your appointments as scheduled Take your immunizations and boosters as scheduled If your symptoms worsen call your PCP, if no PCP go to Urgent Care Center or Emergency Room Smoking is Dangerous to Your Health. Avoid second hand smoke Call the 24-hour hour crisis hotline for domestic abuse at Mellissa Asif PA-C Apr 26, 2018 12:12 pm
--- NOTE | 2018-04-26 12:53 | EKG ---
Date Performed: 04/25/2018 Time Performed: 22:14:24 PTAGE: 62 years EKG: Sinus rhythm POSSIBLE LEFT ATRIAL ENLARGEMENT NONSPECIFIC T-WAVE ABNORMALITY BORDERLINE ECG PREVIOUS TRACING : 04/25/2018 19.05 Since the previous tracing, no significant change noted DOCTOR: Misha Mckinley Interpretating Date/Time 04/26/2018 12:51:08
[2018-04-26 13:00] VITALS: BP 144/82; PULSE 70; RESP 22; TEMP 97.9; O2SAT 100
--- NOTE | 2018-04-26 13:16 | RADRPT ---
EXAM DATE: 04/26/2018 1:08 PM EDT AGE/SEX: 62 years / Male INDICATIONS: Pain. Fall. CLINICAL DATA: This is the patient's initial encounter. Patient reports that signs and symptoms have been present for 1 day and indicates a pain score of 7/10. MEDICAL/SURGICAL HISTORY: . Chronic obstructive pulmonary disease. Myocardial infarction . CAB G. Coronary artery stent. COMPARISON: [facility] 11/24/2010. . FINDINGS: There is moderate degenerative disc disease. No acute fracture or spondylolisthesis. No prevertebral soft tissue swelling. Previous sternotomy. CONCLUSION: Moderate degenerative disc disease. No acute findings. Electronically signed by: Hank Snell MD 04/26/2018 1:14 PM EDT
[2018-04-26] MEDS ORDERED: ATORVASTATIN 40 MG TAB PO SCH (21:00)
== END 2018-04-26 14:56 | disposition home or self-care (01) ==
LOC: NEPC 21:54 → NEDA 04-26 03:27 → NEPFCDU 04-26 04:47
PROVIDERS: ADMIT Hospitalist; ATTEND Hospitalist
DX: R55 Syncope and collapse (principal); I10 Essential (primary) hypertension; I25.10 Atherosclerotic heart disease of native coronary artery without angina pectoris; E78.5 Hyperlipidemia, unspecified; J44.9 Chronic obstructive pulmonary disease, unspecified; K21.9 Gastro-esophageal reflux disease without esophagitis; I25.2 Old myocardial infarction; Z72.0 Tobacco use; Z79.82 Long term (current) use of aspirin; Z79.899 Other long term (current) drug therapy; Z95.1 Presence of aortocoronary bypass graft; Z95.5 Presence of coronary angioplasty implant and graft; Z76.5 Malingerer [conscious simulation]; Z87.442 Personal history of urinary calculi
CPT/HCPCS: 70450; 72040; 80053; 80307; 81001; 84484; 85025; 93005; 96360; 97162; 99285; G0378; G8987; G8988; J7030

== ENCOUNTER 2018-04-26 19:33 | Emergency (ER) | payer MEDICAID ==
[~2018-04-26] VITALS: Ht 167.6 cm; Wt 65.0 kg
[~2018-04-26 19:33] MED LIST changes: -OXYC30TA PO; -XANA1TAB2 PO
[2018-04-26 19:52] VITALS: BP 154/90; PULSE 80; RESP 16; TEMP 98.8; O2SAT 99
--- NOTE | 2018-04-26 21:50 | PD ---
HPI Chief Complaint: Alcohol/Drug Intoxication Time Seen by Provider: 21:49 Travel History International Travel<30 days: No Contact w/Intl Traveler<30days: No Traveled to known affect area: No History of Present Illness HPI Patient 62-year-old male known to me from visit to the ER yesterday presents emergency department today under [place] act. Apparently the patient was fishing today had a syncopal episode and then was staggering about seen by police thought to be intoxicated was placed in a [place] act and brought into the emergency department. Patient is very honorary on my examination Vazquez's taking any alcohol the day, states he had several syncopal episodes again today and does not want to be evaluated again. He denies any chest pain shortness breath abdominal pain nausea vomiting diarrhea. PFSH Past Medical History Hx Anticoagulant Therapy: Yes Arthritis: Yes Asthma: No Autoimmune Disease: No Blood Disorders: No Anxiety: Yes Depression: No Heart Rhythm Problems: No Cancer: No Cardiac Catheterization: Yes Cardiovascular Problems: Yes High Cholesterol: Yes Chemotherapy: No Chest Pain: Yes Congestive Heart Failure: Yes COPD: Yes Cerebrovascular Accident: No Coronary Artery Disease: Yes Diabetes: No Diminished Hearing: No Endocrine: No Gastrointestinal Disorders: Yes GERD: Yes Genitourinary: No Headaches: No Hiatal Hernia: Yes Heparin Induced Thrombocytopen: No Hypertension: Yes Immune Disorder: No Implanted Vascular Access Dvce: Yes Kidney Stones: Yes Musculoskeletal: No Psychiatric: Yes Reproductive: No Respiratory: Yes Immunizations Current: Yes Migraines: Yes Myocardial Infarction: Yes Radiation Therapy: No Seizures: No Sickle Cell Disease: No Sleep Apnea: No Thyroid Disease: No Ulcer: No Past Surgical History Abdominal Surgery: No Body Medical Devices: STENTS, LOOP RECORDER Cardiac Surgery: Yes (7 stents, 2 bypass) Coronary Artery Bypass Graft: Yes Coronary Stent: Yes (X 7) Ear Surgery: No Endocrine Surgery: No Eye Surgery: No Genitourinary Surgery: No Gynecologic Surgery: No Neurologic Surgery: No Oral Surgery: No Thoracic Surgery: Yes (HX of CABG x 2) Other Surgery: Yes (CABG x 2, 7 STENTS) Family History Family Myocardial Infarction: Yes Social History Alcohol Use: No Tobacco Use: Yes (5 per day) Substance Use: Yes (MARIJUANA ) Allergies-Medications (Allergen,Severity, Reaction): Coded Allergies: ketorolac (Verified Allergy, Severe, RASH, 04/26/18) vancomycin (Verified Allergy, Severe, RASH, 04/26/18) penicillin G (Verified Allergy, Unknown, Anaphylaxis, 04/26/18) Reported Meds & Prescriptions Reported Meds & Active Scripts Active Nitrostat SL (Nitroglycerin) 0.4 Mg Subl 0.4 Mg SL DIRECTED PRN 1 tablet under the tongue as needed for chest pain. Repeat every 5 minutes for a total of 3 DOSES or call 911 if NO relief. Atorvastatin (Atorvastatin Calcium) 40 Mg Tab 40 Mg PO HS Reported Aspirin Children's (Aspirin) 81 Mg Chew 81 Mg CHEW DAILY Gabapentin 600 Mg Tab 600 Mg PO TID Review of Systems Except as stated in HPI: all other systems reviewed are Neg Physical Exam Narrative GENERAL: Well-developed well-nourished, aggravated but easily redirectable. SKIN: Focused skin assessment warm/dry. HEAD: No kennedy signs no raccoons eyes, new midline contusion of his forehead which is new since yesterday. Normocephalic. EYES: Pupils equal and round. No scleral icterus. No injection or drainage. ENT: No nasal bleeding or discharge. Mucous membranes pink and moist. NECK: Trachea midline. No JVD. No midline cervical tenderness. CARDIOVASCULAR: Regular rate and rhythm. No murmur appreciated. RESPIRATORY: No accessory muscle use. Clear to auscultation. Breath sounds equal bilaterally. GASTROINTESTINAL: Abdomen soft, non-tender, nondistended. Hepatic and splenic margins not palpable. MUSCULOSKELETAL: No obvious deformities. No clubbing. No cyanosis. No edema. Extremities atraumatic, no midline CT or L-spine tenderness peer NEUROLOGICAL: Awake and alert. Cranial nerves II through XII grossly intact and nonfocal, 5 out of 5 strength in all 4 extremity's, patient is a mild gait imbalance and leans towards railings intermittently. Easily corrects himself. Cerebellar testing otherwise negative. PSYCHIATRIC: Appropriate mood and affect; insight and judgment normal. Data Data Last Documented VS Vital Signs Date Time Temp Pulse Resp B/P (MAP) Pulse Ox O2 Delivery O2 Flow Rate FiO2 04/26/18 19:52 98.8 80 16 154/90 (111) 99 Orders Orders Electrocardiogram (04/26/18 19:52) MDM Medical Decision Making Medical Screen Exam Complete: Yes Emergency Medical Condition: Yes Differential Diagnosis Recurrent syncope, head injury, neck injury, alcohol intoxication unlikely peer Narrative Course Patient room to the emergency department no nystagmus noted, he does not want to stay in the hospital, discussed the risk of signing out AMA without evaluation of the head or neck injury including and permanent disability. He verbalized understanding and accepted these risks. He therefore is appropriate to sign himself AGAINST MEDICAL ADVICE. Review of his records show that after I saw him yesterday he returned to the ER was seen by another physician and placed in observation status none and signed out AMA to the hospitalist. He adamantly denied this and stated that he was going to stay but they came down and told him he was discharged. Diagnosis Primary Impression: Syncope Additional Impressions: Ataxia Head injury Disposition: 07 AGAINST MEDICAL ADVICE Condition: Stable Abe Nguyen MD Apr 26, 2018 21:50
--- NOTE | 2018-04-27 14:05 | EKG ---
Date Performed: 04/26/2018 Time Performed: 19:52:23 PTAGE: 62 years EKG: Sinus rhythm POSSIBLE LEFT ATRIAL ENLARGEMENT NONSPECIFIC T-WAVE ABNORMALITY BORDERLINE ECG PREVIOUS TRACING : 04/25/2018 22.14 Since the previous tracing, no significant change noted DOCTOR: Misha Mckinley Interpretating Date/Time 04/27/2018 14:05:08
== END 2018-04-26 23:35 | disposition left against medical advice (07) ==
LOC: NEPE 19:33
DX: R55 Syncope and collapse (principal); R27.0 Ataxia, unspecified; S09.90XA Unspecified injury of head, initial encounter; R94.31 Abnormal electrocardiogram [ECG] [EKG]; F12.90 Cannabis use, unspecified, uncomplicated; M19.90 Unspecified osteoarthritis, unspecified site; E78.00 Pure hypercholesterolemia, unspecified; I11.0 Hypertensive heart disease with heart failure; I50.9 Heart failure, unspecified; J44.9 Chronic obstructive pulmonary disease, unspecified; I25.10 Atherosclerotic heart disease of native coronary artery without angina pectoris; K21.9 Gastro-esophageal reflux disease without esophagitis; I25.2 Old myocardial infarction; F17.200 Nicotine dependence, unspecified, uncomplicated; Z79.82 Long term (current) use of aspirin; Z79.899 Other long term (current) drug therapy; Z88.0 Allergy status to penicillin; Z88.5 Allergy status to narcotic agent; Z88.8 Allergy status to other drugs, medicaments and biological substances; Z87.442 Personal history of urinary calculi; X58.XXXA Exposure to other specified factors, initial encounter
CPT/HCPCS: 93005; 99283